=== PATIENT | female | born 1975 | race African-American/Black ===

== ENCOUNTER 2020-02-21 08:15 | Outpatient (REF) | payer MEDICARE, MEDICAID, SELFPAY ==
[2020-02-21 13:22] LABS: CT PCR NOT DETECTED (Not Detect.); NG PCR NOT DETECTED (Not Detect.)
[2020-02-22 08:46] LABS: BV Int Neg Control Negative (Negative); BV Int Pos Control Positive (Positive)
== END 2020-02-21 08:16 | disposition home or self-care (01) ==
LOC: HO.LAB 08:15
PROVIDERS: Visit Provider Obstetrics & Gynecology
DX: Z01.419 Encounter for gynecological examination (general) (routine) without abnormal findings (principal); F17.210 Nicotine dependence, cigarettes, uncomplicated; Z11.3 Encounter for screening for infections with a predominantly sexual mode of transmission
CPT/HCPCS: 87480; 87491; 87510; 87591; 87660

== ENCOUNTER → 2020-02-22 14:01 | Outpatient (BNVA) | payer MEDICARE, MEDICAID, SELFPAY | PROVIDERS: Visit Provider Family Medicine Adult Medicine | DX: M54.16 Radiculopathy, lumbar region (principal); M45.6 Ankylosing spondylitis lumbar region; Z79.891 Long term (current) use of opiate analgesic | CPT/HCPCS: 99212 ==

== ENCOUNTER 2020-03-03 16:37 | Emergency (ER) | payer MEDICARE, MEDICAID, SELFPAY ==
[2020-03-03 16:40] VITALS: BP 174/93; PULSE 88; RESP 18; TEMP 37.1; O2SAT 98; BMI 37.1
--- NOTE | 2020-03-03 19:36 | CT_ITS ---
EXAMINATION: CT SOFT TISSUE NECK WITHOUT CONTRAST CLINICAL INFORMATION: Lump right neck. COMPARISON: CT chest dated 09/25/2019 TECHNIQUE: Helical imaging was performed in the axial plane with generation of coronal and sagittal reformatted images. This CT examination was performed using dose optimization techniques as appropriate, variously including the following: *Automated exposure control *Adjustment of mA and/or kV according to patient size (this includes techniques or standardized protocols for targeted exams where dose is matched to indication/reason for exam; i.e. extremities or head) *Use of iterative reconstruction technique DLP: 919 mGy-cm FINDINGS: No cervical adenopathy is identified. Multiple mildly prominent lymph nodes present within the bilateral supraclavicular regions, bilateral axillary regions, and along the lateral chest wall on either side. These lymph nodes approach 1.0 cm short axis, not including the fatty hilum. The parotid glands are homogeneous in attenuation. The submandibular glands are normal. No contour abnormality or pathologic enhancement is seen within the oral cavity or pharyngeal mucosal space. The laryngeal structures are normal. The parapharyngeal fat is preserved. The carotid sheath vasculature opacify normally. No extra mucosal soft tissue mass or fluid collection is seen. No retropharyngeal fluid collection is seen. Right hemithyroidectomy. There is small amount of residual thyroid tissue just right of the trachea. The remaining left thyroid gland is heterogeneous. The superior mediastinum is unremarkable. The lung apices are clear. The mastoid air cells and visualized portions of the paranasal sinuses are well-aerated. The temporomandibular joints are normal. No periapical disease is identified. No osseous abnormalities are seen. The imaged portions of the brain parenchyma are unremarkable. CT/CT soft tissue neck wo con IMPRESSION: * No right-sided neck mass is identified. * Mildly prominent bilateral supraclavicular, axillary and lateral chest wall lymph nodes when compared to the prior exam. This is nonspecific. * Right hemithyroidectomy. Small amount of residual right thyroid tissue just right of the trachea anteriorly. Remaining thyroid tissue appears heterogeneous. Consider nonemergent ultrasound for further evaluation. This critical result was discussed with Abbi Serrano M.D. at 8:40 PM on 03/03/2020 and it was ascertained that the content and urgency of the report was understood at the time of direct communication.
[2020-03-03 20:00] VITALS: BP 147/68; PULSE 93; RESP 18; TEMP 37.1; O2SAT 95
[2020-03-03] MEDS: predniSONE 20 MG TABLET 60 MG PO (20:26)
[2020-03-03] MEDS: diphenhydrAMINE HCL 25 MG TABLET 50 MG PO (20:26)
[2020-03-03 22:00] VITALS: BP 153/72; PULSE 88; RESP 20; TEMP 36.9; O2SAT 96
--- NOTE | 2020-03-03 22:05 | ED.GENADULT ---
HPI - General Adult General Chief complaint: General Medical Stated complaint: allergic reaction Time Seen by Provider: 03/03/20 19:18 Source: patient Mode of arrival: ambulatory Limitations: no limitations History of Present Illness HPI narrative: patient comes to emergency room complaining of an area of neck swelling on the right side of her neck. Patient states she is not sure if she has an allergic reaction, started Flagyl yesterday. Patient states she is not short of breath, no rash, patient unsure if she has an allergic reaction. Patient states she is not sure if she has noticed this neck mass in the past. MD complaint: Mass in neck Related Data Home Medications Medication Instructions Recorded Confirmed apixaban 5 mg tablet 5 mg PO BID 02/21/20 cholecalciferol (vitamin D3) 1,250 1,250 mcg PO QWEEK 02/21/20 mcg (50,000 unit) capsule docusate sodium 100 mg capsule 100 mg PO DAILY 02/21/20 fluticasone furoate 100 1 inh INHALATION DAILY 02/21/20 mcg-vilanterol 25 mcg/dose inhalation powder lactulose 20 gram oral packet 20 g PO BID 02/21/20 pantoprazole 40 mg tablet,delayed 40 mg PO DAILY 02/21/20 release sucroferric oxyhydroxide 500 mg 500 mg PO BID 02/21/20 chewable tablet vitamin B complex and vitamin C 1 cap PO DAILY 02/21/20 no.20-folic acid 1 mg capsule Previous Rx's Medication Instructions Recorded oxycodone 10 mg tablet 10 mg PO BID PRN 30 Days #60 tab 02/22/20 oxycodone 10 mg tablet 10 mg PO BID PRN 30 Days #60 tab 02/22/20 Allergies Allergy/AdvReac Type Severity Reaction Status Date / Time Cefazolin Sodium Allergy Unknown unknown Verified 02/22/20 14:12 codeine Allergy Unknown unknown Verified 02/22/20 14:12 hydrocodone [From VICODIN] Allergy Unknown UNKNOWN Verified 02/22/20 14:12 Hydrocodone Bitartrate Allergy Unknown unknown Verified 02/22/20 14:12 lisinopril [LISINOPRIL] Allergy Unknown EYES SWELL Verified 02/22/20 14:12 SHUT, angioedema, angioedema Motrin Allergy Unknown unknown Verified 02/22/20 14:12 piperacillin [Zosyn] Allergy Unknown rash Verified 02/22/20 14:12 shellfish Allergy Unknown unknown Verified 02/22/20 14:12 Sulfa (Sulfonamide Allergy Unknown UNKNOWN Verified 02/22/20 14:12 Antibiotics) [SULFA (SULFONAMIDE ANTIBIOTICS)] tramadol [TRAMADOL] Allergy Unknown HIVES Verified 02/22/20 14:12 vancomycin Allergy Unknown rash Verified 02/22/20 14:12 azithromycin AdvReac Unknown dizziness/A Verified 02/22/20 14:12 KI SHELLFISH Allergy Unknown DIFFICULTY Uncoded 01/04/20 18:03 BREATHING Z-pack Allergy Unknown diziness/ Uncoded 10/05/19 00:00 AVERY Review of Systems Review of Systems: Constitutional : No Weight loss, No Fever, No Chills, No Night Sweats, No Fatigue, No Malaise ENT/Mouth : No Hearing loss, No Ear Pain, no nasal congestion, complaining of mass on the neck on the right side Hoarseness, No sore throat, No Rhinorrhea, No Swallowing Difficulty Eyes: No Eye Pain, No Swelling, No Redness, No Foreign Body, No Discharge, No Vision Changes Cardiovascular : No Chest Pain, No SOB, No Dyspnea on Exertion, No Orthopnea, No Edema, No Palpitations Respiratory : No Cough, No Sputum, No Wheezing, No Smoke Exposure, No Dyspnea Gastrointestinal : No Nausea, No Vomiting, No Diarrhea, No Constipation, No abdominal Pain, No Hematochezia, No Melena Genitourinary : no irregular bleeding, No Dysuria, No Urinary Frequency, No Hematuria, No Urinary Incontinence, No Urgency, No Flank Pain, No Urinary Flow Changes, No Hesitancy Musculoskeletal : No joint pain, No Myalgias, No Joint Swelling Skin : No Skin Lesions, No rash Neuro : No Weakness, No Numbness, No Paresthesias, No Loss of Consciousness, No Dizziness, No Headache Psych : No Anxiety/Panic, No Depression, No SI/HI/AH/VH, No Social Issues, Heme/Lymph: No Bruising, No Bleeding,No Lymphadenopathy Endocrine : No Polyuria, No Polydipsia, No Temperature Intolerance [facility] Past Medical History Medical History (Updated 03/03/20 @ 22:10 by Abbi Serrano MD) Ankylosing spondylitis of lumbar region Chronic kidney disease Right lumbar radiculopathy Surgical History (Updated 02/22/20 @ 14:42 by Eugene Tinoco DO) Hx of bilateral breast reduction surgery Status post dialysis Social History Social History (Updated 02/21/20 @ 08:35 by Marianna Marie MA) Alcohol intake: never Smoking Status: Light tobacco smoker Tobacco Type: Cigarette Cigarettes Per Day: 1 Years Smoked: 15 Advance Directives: No Advance Directives Information Provided: No Physical Exam Vital Signs: Vital Signs: Last Vital Signs Temp 98.8 F 03/03/20 16:40 Pulse 88 03/03/20 16:40 Resp 18 03/03/20 16:40 BP 174/93 H 03/03/20 16:40 Pulse Ox 98 03/03/20 16:40 Body Mass Index 37.1 Appearance: Alert. Oriented X3. No acute distress. Eyes: Pupils equal, round and reactive to light. ENT: Pharynx normal. Neck: Normal inspection. Neck supple. palpable tone have right 1/2 cm movable superficial tissue on the right side of the neck CVS: Normal heart rate and rhythm. Pulses normal. Normal S1 and S2 Respiratory: No respiratory distress. Breath sounds normal. No Wheezing. No rales Abdomen: Soft and nontender. No rigidity. No distention. good BS x4 Skin: Skin warm and dry. Normal skin color. Normal skin turgor. Extremities: No lower extremity edema. No lower extremity edema. No Lacerations. No Rash Neuro: Oriented X 3. No motor deficit. No sensory deficit. Moving all extermities. No slurred speech. Course Course Course Narrative: I discussed the CT scan with the patient, she was given medications for allergic reaction, I discussed with the patient that she does not have any neck mass. Discussed that it was visualized on the CT scan that she had a right sided jenny thyroidectomy, patient states that she does not recall having such procedure. patient's palpable mass likely lymphadenopathy. Patient was instructed to follow-up with her primary care physician Discharge Plan Discharge Clinical Impression: Cervical lymphadenopathy Patient Disposition: Home, Self-Care Instructions: Lymphadenopathy (ED) Additional Instructions: Please follow-up with your primary care physician tomorrow. If you have any worsening or new symptoms, please return to the emergency room or call 911 Prescriptions: No Action oxycodone 10 mg tablet 10 mg PO BID PRN (Reason: pain) 30 Days Qty: 60 RF: 0 oxycodone 10 mg tablet 10 mg PO BID PRN (Reason: pain) 30 Days Qty: 60 RF: 0 Breo Ellipta 100-25 mcg/dose blister with device 1 inh inhalation DAILY RF: 0 docusate sodium 100 mg capsule 100 mg PO DAILY RF: 0 Eliquis 5 mg tablet 5 mg PO BID RF: 0 cholecalciferol (vitamin D3) 1,250 mcg (50,000 unit) capsule 1,250 mcg PO QWEEK RF: 0 lactulose 20 gram packet 20 g PO BID RF: 0 pantoprazole [Protonix] 40 mg tablet,delayed release (DR/EC) 40 mg PO DAILY RF: 0 Renal Caps 1 mg capsule 1 cap PO DAILY RF: 0 Velphoro 500 mg tablet,chewable 500 mg PO BID RF: 0
== END 2020-03-03 23:38 | disposition home or self-care (01) ==
PROVIDERS: Emergency Provider Emergency Medicine; PCP Physician Assistant
DX: R59.0 Localized enlarged lymph nodes (principal); M54.2 Cervicalgia; Z79.899 Other long term (current) drug therapy
CPT/HCPCS: 70490; 99284; Q0163

== ENCOUNTER → 2020-04-16 15:16 | Outpatient (BNVA) | payer MEDICARE, MEDICAID, SELFPAY | PROVIDERS: PCP Physician Assistant; Visit Provider Family Medicine Adult Medicine | DX: M45.6 Ankylosing spondylitis lumbar region (principal); M54.16 Radiculopathy, lumbar region; Z79.891 Long term (current) use of opiate analgesic | CPT/HCPCS: 99212 ==

== ENCOUNTER → 2020-04-26 15:34 | Outpatient (BNVA) | payer MEDICARE, MEDICAID, SELFPAY | PROVIDERS: PCP Physician Assistant; Visit Provider Obstetrics & Gynecology | DX: N93.9 Abnormal uterine and vaginal bleeding, unspecified (principal) | CPT/HCPCS: 99212 ==

== ENCOUNTER 2020-05-15 08:16 | Outpatient (REF) | payer MEDICARE, MEDICAID, SELFPAY ==
--- NOTE | 2020-05-15 08:20 | MM_ITS ---
EXAMINATION: MM SCREENING DIGITAL BREAST TOMOSYNTHESIS, BILATERAL CLINICAL INFORMATION: Screening. Asymptomatic. Remote reduction mammoplasty 1999. Age 44. The lifetime risk of breast cancer based on the Tyrer-Cuzick Model is 11%. COMPARISON: Mammography: 05/10/2019, 08/05/2018, 05/04/2018, 04/09/2017, targeted left breast ultrasound 08/05/2018, 11/07/2018. TECHNIQUE: Digital breast tomosynthesis is performed in both the craniocaudal and mediolateral oblique views along with computer-aided detection (CAD). Synthesized 2D images are generated from the tomosynthesis. FINDINGS: There are scattered areas of fibroglandular density (ACR BI-RADS breast composition Category b). There is chronic bilateral scarring and scattered benign round and rim and coarse calcifications consistent with the prior reduction mammoplasty. The left breast shows no interval mass or architectural abnormality. The right breast has macrolobulated circumscribed mass near the scar at 6:00 position measuring 3.3 x 1.9 x 1.7 cm. This represents change from prior study, possibly a cyst. Patient will be recalled for additional imaging. MM/MM tomosynthesis screening BI IMPRESSION: 1. Right: Macrolobulated circumscribed rounded mass near scar at 6:00 position measuring 3.3 x 1.9 x 1.7 cm, possibly a cyst. 2. Left: No significant changes prior studies. 3. Bilateral post surgical changes consistent with prior reduction mammoplasty. ASSESSMENT: BI-RADS 0: Incomplete - Need Additional Imaging Evaluation RECOMMENDATION: 1. Targeted ultrasound right breast. 2. Radiology department staff will contact the patient for additional imaging. This patient's information was entered into a reminder system with a target due date for their next mammogram.
== END 2020-05-15 08:17 | disposition home or self-care (01) ==
LOC: HO.MAMMO 08:16
PROVIDERS: PCP Physician Assistant; Visit Provider Physician Assistant
DX: Z12.31 Encounter for screening mammogram for malignant neoplasm of breast (principal)
CPT/HCPCS: 77063; 77067

== ENCOUNTER 2020-05-20 13:10 | Outpatient (REF) | payer MEDICARE, MEDICAID, SELFPAY ==
--- NOTE | 2020-05-20 | US_ITS ---
EXAMINATION: US DIAGNOSTIC ULTRASOUND BREAST, RIGHT CLINICAL INFORMATION: Right breast mass on mammography. COMPARISON: Mammography of 05/15/2020 as well as studies dating back to 04/09/2017. TECHNIQUE: Ultrasound of the breast is performed with real-time elliott scale imaging and color Doppler. FINDINGS: At approximately 6 o'clock position 5 cm from the nipple there is a well-circumscribed hypoechoic lesion with mild distal sound enhancement. No distal sound shadowing. There is some internal vascularity. The lesion measures approximately 2.0 x 2.0 x 0.9 cm in size. The lesion is wider than it is tall. Ultrasound-guided core biopsy is recommended. Results are discussed with the patient at time of visit. Above recommendation will be called by mammography hand stapler to referring provider's office. US/US breast RT limited IMPRESSION: Solid right breast lesion 6 o'clock position for which ultrasound-guided core biopsy is recommended. ASSESSMENT: BI-RADS 4A: Low suspicion for malignancy. RECOMMENDATION: Ultrasound-guided core biopsy. This patient's information was entered into a reminder system with a target due date for their next mammogram.
== END 2020-05-20 13:11 | disposition home or self-care (01) ==
LOC: HO.MAMMO 13:10
PROVIDERS: PCP Physician Assistant; Visit Provider Physician Assistant
DX: R92.8 Other abnormal and inconclusive findings on diagnostic imaging of breast (principal)
CPT/HCPCS: 76642

== ENCOUNTER → 2020-06-06 14:16 | Outpatient (BNVA) | payer MEDICARE, MEDICAID, SELFPAY | PROVIDERS: PCP Physician Assistant; Visit Provider Family Medicine Adult Medicine | DX: M45.6 Ankylosing spondylitis lumbar region (principal); M54.16 Radiculopathy, lumbar region | CPT/HCPCS: 99212 ==

== ENCOUNTER 2020-06-20 14:53 | Outpatient (REF) | payer MEDICARE, MEDICAID, SELFPAY ==
--- NOTE | ~2020-06-20 | US_ITS ---
EXAMINATION: US DIAGNOSTIC ULTRASOUND BREAST, RIGHT CLINICAL INFORMATION: Right breast lump. COMPARISON: May 20, 2020 ultrasound and mammography dating back to April 09, 2017. TECHNIQUE: Ultrasound of the breast is performed with real-time elliott scale imaging and color Doppler. FINDINGS: At the 4:00 position of the right breast 10 cm from nipple there is a subcutaneous hypoechoic region consistent with epidermal inclusion cyst/sebaceous cyst. At the 6:00 position of the right breast in region of palpable abnormality there is again noted to be a circumscribed hypoechoic lesion measuring approximately 1.6 x 1.0 x 2.5 cm in size. There is internal vascularity present. There is some distal sound shadowing seen. Ultrasound-guided core biopsy is again recommended as had been on study of May 20, 2020 at which time patient refused to have biopsy done. Results are discussed with the patient at time of visit. US/US breast RT limited IMPRESSION: Bilateral subcutaneous skin lesions as described. Again noted to be solid breast lesion 6:00 position for which ultrasound-guided core biopsy is recommended. ASSESSMENT: Right breast BI-RADS 4A: Low suspicion for malignancy RECOMMENDATION: Tissue sampling of right breast lesion 6:00 position. This patient's information was entered into a reminder system with a target due date for their next mammogram.
--- NOTE | ~2020-06-20 | US_ITS ---
EXAMINATION: US DIAGNOSTIC ULTRASOUND BREAST, LEFT CLINICAL INFORMATION: Left breast lump. COMPARISON: Mammography of May 15, 2020 and studies dating back to April 09, 2017. TECHNIQUE: Ultrasound of the breast is performed with real-time elliott scale imaging and color Doppler. FINDINGS: There is no focal suspicious finding. At approximately the 6:00 position 8 cm from the nipple there is a 5 x 2 mm hypoechoic lesion which is wider than it is tall without vascularity lying within the subcutaneous tissue and likely representing a sebaceous cyst/epidermal inclusion cyst. No definite pore to the skin is appreciated. Results are discussed with the patient at time of visit. US/US breast LT limited IMPRESSION: Palpable abnormality of the left breast corresponds to a skin lesion as described. ASSESSMENT: Left breast BI-RADS 2: Benign RECOMMENDATION: Left breast clinical management One year screening mammogram left breast. This patient's information was entered into a reminder system with a target due date for their next mammogram.
== END 2020-06-20 14:54 | disposition home or self-care (01) ==
LOC: HO.MAMMO 14:53
PROVIDERS: Visit Provider Physician Assistant
DX: N63.15 Unspecified lump in the right breast, overlapping quadrants (principal); N63.25 Unspecified lump in the left breast, overlapping quadrants
CPT/HCPCS: 76642

== ENCOUNTER → 2020-07-10 09:03 | Outpatient (BNVA) | payer MEDICARE, MEDICAID, SELFPAY | PROVIDERS: PCP Physician Assistant; Visit Provider Surgery ==

== ENCOUNTER → 2020-07-11 13:59 | Outpatient (BNVA) | payer MEDICARE, MEDICAID, SELFPAY | PROVIDERS: PCP Physician Assistant; Visit Provider Family Medicine Adult Medicine | DX: M45.6 Ankylosing spondylitis lumbar region (principal); M54.16 Radiculopathy, lumbar region; Z79.899 Other long term (current) drug therapy | CPT/HCPCS: 99212 ==

== ENCOUNTER 2020-07-31 10:32 | Outpatient (REF) | payer MEDICARE, MEDICAID, SELFPAY ==
--- NOTE | ~2020-07-31 | MM_ITS ---
EXAMINATION: ULTRASOUND GUIDED CORE BIOPSY BREAST, RIGHT POST PROCEDURE DIGITAL MAMMOGRAM, RIGHT CLINICAL INFORMATION: Oval circumscribed mass superficial inferior right breast near reduction mammoplasty scar measuring approximately 2.5 cm in greatest dimension. COMPARISON: Mammography 05/15/2020, ultrasound right breast 05/20/2020, 06/20/2020. FINDINGS: Proper informed consent is obtained from the patient after discussion of the procedure, potential risks and complications, and alternatives. Patient was given an opportunity for questions. The patient appeared to understand. The patient consented to the procedure and signed the consent form. GUIDANCE: Ultrasound-guided; aseptic technique. LESION: Oval macrolobulated hypoechoic mass superficial inferior right breast. APPROACH: Oblique lateral medial. ANESTHESIA: 10 mL 1% lidocaine. DERMATOTOMY: Single skin rosaline dermatotomy performed. NEEDLE: 14-gauge Achieve core biopsy device with 13.5-gauge co-axial guide needle. CORES: 5. CLIP: HydroMARK; shape: open coil. POST PROCEDURE UNILATERAL DIGITAL MAMMOGRAM: The post biopsy mammogram is performed in separate room using separate digital mammography equipment from the biopsy procedure. CC and ML views are obtained. There are scattered areas of fibroglandular density (breast composition category: b). The clip marker is in position, residing inferior medial aspect of the lesion. No gross hematoma. The patient tolerated the procedure well. No immediate complications. Home instructions reviewed with the patient. Final pathology results are pending. MM/MM diagnostic mammo unilat RT IMPRESSION: 1. Status post ultrasound-guided core biopsy right breast. 2. Clip placed: HydroMARK; shape: open coil. 3. Pathology pending. An addendum report will be issued.
== END 2020-07-31 10:33 | disposition home or self-care (01) ==
LOC: HO.MAMMO 10:32
PROVIDERS: Visit Provider Surgery
DX: N63.15 Unspecified lump in the right breast, overlapping quadrants (principal)
CPT/HCPCS: 19083; 77065; 88305

== ENCOUNTER 2020-09-03 13:55 | Outpatient (REF) | payer MEDICARE, MEDICAID, SELFPAY ==
[2020-09-04 08:20] LABS: HBc Num1 0.07 S/CO (0.00-0.79); HIV AB/AG Nonreactive (Nonreactive); HIV Num 1 0.06 S/CO (0.00-0.99); Hepatitis B Core Antibody Nonreactive (Nonreactive)
[2020-09-04 08:46] LABS: ~HepC Num1 0.14 S/CO (0.00-0.79); ~Hepatitis C Antibody Nonreactive (Nonreactive)
[2020-09-04 08:58] LABS: Syphilis Screen Nonreactive (Nonreactive)
[2020-09-04 09:58] LABS: CT PCR NOT DETECTED (Not Detect.); NG PCR NOT DETECTED (Not Detect.)
[2020-09-04 11:25] LABS: BV Int Neg Control Negative (Negative); BV Int Pos Control Positive (Positive)
== END 2020-09-03 13:56 | disposition home or self-care (01) ==
LOC: HO.LAB 13:55
PROVIDERS: PCP Physician Assistant; Visit Provider Advanced Practice Midwife
DX: Z01.84 Encounter for antibody response examination (principal); Z11.4 Encounter for screening for human immunodeficiency virus [HIV]; Z11.3 Encounter for screening for infections with a predominantly sexual mode of transmission; N89.8 Other specified noninflammatory disorders of vagina; Z20.2 Contact with and (suspected) exposure to infections with a predominantly sexual mode of transmission
CPT/HCPCS: 36415; 86704; 86780; 86803; 87389; 87480; 87491; 87510; 87591; 87660; 99212

== ENCOUNTER 2020-11-30 20:12 | Emergency (ER) | payer MEDICARE, MEDICAID, SELFPAY ==
[2020-11-30 20:30] VITALS: BP 147/84; PULSE 79; RESP 16; TEMP 36.8; O2SAT 100; BMI 40.3
--- NOTE | 2020-11-30 21:54 | PC.NURSE ---
pt refused to wait for d/c paperwork. 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
--- NOTE | 2020-12-01 02:28 | ED_ITS ---
HPI - Wound/Laceration General Chief Complaint: Wound/Laceration Stated Complaint: Wound vac leakage Source: patient Mode of arrival: ambulatory Limitations: no limitations History of Present Illness HPI narrative: Here to have wound dressing change she has a wound VAC in the right lower quadrant from surgical wound that she has had after renal transplant otherwise she is doing well. She does have wound nurse come to the house however not able to today given the weekend. She has an appointment with her transplant team at [facility] on Wednesday. States she has her dressing with her just wants this changed and otherwise she is overall feeling ?great?. States she change the top dressing of the wound VAC and this may have caused a kink causing malfunction of the wound VAC to not drain properly and is beeping this is been going on for past 3 hours. Onset (ago): minute(s) Related Data Home Medications Medication Instructions Recorded Confirmed albuterol sulfate 90 mcg/actuation 2 puff INHALATION Q4-6H 11/30/20 11/30/20 aerosol inhaler (Ventolin HFA) amlodipine 10 mg tablet 1 tab PO DAILY 11/30/20 11/30/20 apixaban 5 mg tablet (Eliquis) 1 tab PO BID 11/30/20 11/30/20 calcitriol 0.5 mcg capsule 1 cap PO DAILY 11/30/20 11/30/20 docusate sodium 100 mg capsule 1 cap PO BID 11/30/20 11/30/20 fluconazole 200 mg tablet 1 tab PO DAILY 11/30/20 11/30/20 fluticasone furoate 100 1 puff INHALATION DAILY 11/30/20 11/30/20 mcg-vilanterol 25 mcg/dose inhalation powder (Breo Ellipta) furosemide 20 mg tablet 20 mg PO DAILY 11/30/20 11/30/20 gabapentin 300 mg capsule 1 cap PO TID 11/30/20 11/30/20 nystatin 100,000 unit/mL oral 5 ml PO QID 11/30/20 11/30/20 suspension pantoprazole 20 mg tablet,delayed 1 tab PO DAILY 11/30/20 11/30/20 release sodium zirconium cyclosilicate 5 1 packet PO DAILY 11/30/20 11/30/20 gram oral powder packet (Lokelma) sulfamethoxazole 400 1 tab PO DAILY 11/30/20 11/30/20 mg-trimethoprim 80 mg tablet valganciclovir 450 mg tablet 2 tab PO DAILY 11/30/20 11/30/20 Allergies Allergy/AdvReac Type Severity Reaction Status Date / Time Cefazolin Sodium Allergy Unknown unknown Verified 11/30/20 20:35 codeine Allergy Unknown unknown Verified 11/30/20 20:35 hydrocodone [From VICODIN] Allergy Unknown UNKNOWN Verified 11/30/20 20:35 lisinopril [LISINOPRIL] Allergy Unknown EYES SWELL Verified 11/30/20 20:35 SHUT, angioedema, angioedema Motrin Allergy Unknown unknown Verified 11/30/20 20:35 piperacillin [Zosyn] Allergy Unknown rash Verified 11/30/20 20:35 shellfish Allergy Unknown unknown Verified 11/30/20 20:35 Sulfa (Sulfonamide Allergy Unknown UNKNOWN Verified 11/30/20 20:35 Antibiotics) [SULFA (SULFONAMIDE ANTIBIOTICS)] tramadol [TRAMADOL] Allergy Unknown HIVES Verified 11/30/20 20:35 vancomycin Allergy Unknown rash Verified 11/30/20 20:35 azithromycin AdvReac Unknown dizziness/A Verified 11/30/20 20:35 Review of Systems Review of Systems: Yes all other systems are reviewed and are negative [facility] Past Medical History Medical History Ankylosing spondylitis of lumbar region Chronic kidney disease Right lumbar radiculopathy Surgical History (Updated 11/30/20 @ 20:34 by Faith Jacobs RN) Hx of bilateral breast reduction surgery S/P kidney transplant Status post dialysis Social History Social History Alcohol intake: never Cigarettes Per Day: 1 Years Smoked: 15 Advance Directives: No Advance Directives Information Provided: Yes Gender identity: female Physical Exam Vital Signs: Vital Signs: Last Vital Signs Temp 98.2 F 11/30/20 20:30 Pulse 79 11/30/20 20:30 Resp 16 11/30/20 20:30 BP 147/84 H 11/30/20 20:30 Pulse Ox 100 11/30/20 20:30 Body Mass Index 40.3 Const: General: cooperative and healthy appearing; No acute distress or in toxicated appearing Nutritional Appearance: average body habitus Orientation/consciousness: patient oriented x3 HENMT: Head: Yes normal to inspection Ears: hearing grossly normal bilaterally Eyes: General: appearance normal, both eyes and all related structures Visual Farr: normal visual farr by confrontation Neck: Neck: Yes normal visual inspection, No positive Brudzinski's sign, No positive Kernig's sign and No tender Thyroid: Thyroid normal Chest: Chest palpation & inspection: normal inspection of the chest Resp: Effort & Inspection: normal respiratory effort Cardio: Jugular venous distension: no JVD GI: Inspection: Yes normal to inspection Percussion: Yes normal to percussion Auscultation: normal bowel sounds : General: Yes no CVA tenderness Back/Spine/Pelvis: Back: no CVA tenderness Skin: General skin exam: no rashes or lesions noted Full body images: 1. Wound VAC with Tegaderm dressing appears to have 1 corner this flaked off causing disruption in the air seal and alert in the wound VAC. Neuro: General: patient oriented x3 Extrem: General: Yes normal to inspection Course Course Course Narrative: Does not want me to call [facility] or consult her transplant team has extra wound VAC dressing her VNA comes and changes it is regularly just wants this change to close the seal. Wound VAC dressing changed using sterile technique flow signs or symptoms of infection. Wound was repacked with the specialized wound still packing and functioning well. Has an appointment tomorrow with her wound/transplant team at [facility]. Discharge Plan Discharge Clinical Impression: Encounter for management of vacuum-assisted closure (VAC) of wound Patient Disposition: Elopement Additional Instructions: Patient left prior to getting her discharge Prescriptions: No Action valganciclovir 450 mg tablet 2 tab PO DAILY RF: 0 nystatin 100,000 unit/mL suspension 5 ml PO QID RF: 0 sulfamethoxazole-trimethoprim 400-80 mg tablet 1 tab PO DAILY RF: 0 fluconazole 200 mg tablet 1 tab PO DAILY RF: 0 pantoprazole 20 mg tablet,delayed release (DR/EC) 1 tab PO DAILY RF: 0 amlodipine 10 mg tablet 1 tab PO DAILY RF: 0 calcitriol 0.5 mcg capsule 1 cap PO DAILY RF: 0 docusate sodium 100 mg capsule 1 cap PO BID RF: 0 gabapentin 300 mg capsule 1 cap PO TID RF: 0 furosemide 20 mg tablet 20 mg PO DAILY RF: 0 albuterol sulfate [Ventolin HFA] 90 mcg/actuation HFA aerosol inhaler 2 puff inhalation Q4-6H RF: 0 Eliquis 5 mg tablet 1 tab PO BID RF: 0 Breo Ellipta 100-25 mcg/dose blister with device 1 puff inhalation DAILY RF: 0 Lokelma 5 gram powder in packet 1 packet PO DAILY RF: 0 Interventions: ED Discharge Assessment Last Done: 11/30/20 21:55 Discharge Date/Time: 11/30/20 21:56
== END 2020-11-30 21:56 | disposition left against medical advice (07) ==
PROVIDERS: Emergency Provider Student in an Organized Health Care Education/Training Program; PCP Physician Assistant
DX: Z48.01 Encounter for change or removal of surgical wound dressing (principal); Z94.0 Kidney transplant status
CPT/HCPCS: 99283

== ENCOUNTER 2020-12-01 04:45 | Emergency (ER) | payer MEDICARE, MEDICAID, SELFPAY ==
[2020-12-01 04:59] VITALS: BP 115/53; PULSE 79; RESP 16; TEMP 36.8; O2SAT 100; BMI 40.3
--- NOTE | 2020-12-01 05:48 | ED_ITS ---
HPI - Wound/Laceration General Chief Complaint: Wound/Laceration Stated Complaint: wound check Time Seen by Provider: 12/01/20 05:48 Source: patient Mode of arrival: ambulatory History of Present Illness HPI narrative: 45-year-old female status post renal transplant with of wound VAC in place now presenting with wound VAC malfunction. Patient otherwise denies any fever, chills, difficulties with the wound. Related Data Home Medications Medication Instructions Recorded Confirmed albuterol sulfate 90 mcg/actuation 2 puff INHALATION Q4-6H 11/30/20 11/30/20 aerosol inhaler (Ventolin HFA) amlodipine 10 mg tablet 1 tab PO DAILY 11/30/20 11/30/20 apixaban 5 mg tablet (Eliquis) 1 tab PO BID 11/30/20 11/30/20 calcitriol 0.5 mcg capsule 1 cap PO DAILY 11/30/20 11/30/20 docusate sodium 100 mg capsule 1 cap PO BID 11/30/20 11/30/20 fluconazole 200 mg tablet 1 tab PO DAILY 11/30/20 11/30/20 fluticasone furoate 100 1 puff INHALATION DAILY 11/30/20 11/30/20 mcg-vilanterol 25 mcg/dose inhalation powder (Breo Ellipta) furosemide 20 mg tablet 20 mg PO DAILY 11/30/20 11/30/20 gabapentin 300 mg capsule 1 cap PO TID 11/30/20 11/30/20 nystatin 100,000 unit/mL oral 5 ml PO QID 11/30/20 11/30/20 suspension pantoprazole 20 mg tablet,delayed 1 tab PO DAILY 11/30/20 11/30/20 release sodium zirconium cyclosilicate 5 1 packet PO DAILY 11/30/20 11/30/20 gram oral powder packet (Lokelma) sulfamethoxazole 400 1 tab PO DAILY 11/30/20 11/30/20 mg-trimethoprim 80 mg tablet valganciclovir 450 mg tablet 2 tab PO DAILY 11/30/20 11/30/20 Allergies Allergy/AdvReac Type Severity Reaction Status Date / Time Cefazolin Sodium Allergy Unknown unknown Verified 11/30/20 20:35 codeine Allergy Unknown unknown Verified 11/30/20 20:35 hydrocodone [From VICODIN] Allergy Unknown UNKNOWN Verified 11/30/20 20:35 lisinopril [LISINOPRIL] Allergy Unknown EYES SWELL Verified 11/30/20 20:35 SHUT, angioedema, angioedema Motrin Allergy Unknown unknown Verified 11/30/20 20:35 piperacillin [Zosyn] Allergy Unknown rash Verified 11/30/20 20:35 shellfish Allergy Unknown unknown Verified 11/30/20 20:35 Sulfa (Sulfonamide Allergy Unknown UNKNOWN Verified 11/30/20 20:35 Antibiotics) [SULFA (SULFONAMIDE ANTIBIOTICS)] tramadol [TRAMADOL] Allergy Unknown HIVES Verified 11/30/20 20:35 vancomycin Allergy Unknown rash Verified 11/30/20 20:35 azithromycin AdvReac Unknown dizziness/A Verified 11/30/20 20:35 KI Review of Systems Review of Systems: Pertinent positives and negatives as stated in HPI 10 point review of systems is otherwise negative. [facility] Past Medical History Source: nursing notes reviewed Medical History Ankylosing spondylitis of lumbar region Chronic kidney disease Right lumbar radiculopathy Surgical History Hx of bilateral breast reduction surgery S/P kidney transplant Status post dialysis Social History Social History Alcohol intake: never Cigarettes Per Day: 1 Years Smoked: 15 Advance Directives: No Advance Directives Information Provided: No Patient : No Gender identity: female Physical Exam Vital Signs: Vital Signs: Last Vital Signs Temp 98.2 F 12/01/20 04:59 Pulse 79 12/01/20 04:59 Resp 16 12/01/20 04:59 BP 115/53 L 12/01/20 04:59 Pulse Ox 100 12/01/20 04:59 Body Mass Index 40.3 VITAL SIGNS: Reviewed. GENERAL: Well developed, well nourished, in no acute distress. HEAD: Normocephalic/atraumatic EYES: PERRLA, EOMI OROPHARYNX: no oral lesions noted, posterior pharynx clear LUNGS: Normal breath sounds. No adventitious sounds or accessory muscle use. SpO2<100> CARDIOVASCULAR: Regular rate and rhythm without noted murmurs ABDOMEN: Soft, non-tender, non-distended with bowel sounds, well-healing wound without a lot of discharge but wound VAC is alarming SKIN: Inspection of the skin reveals no rashes NEUROLOGIC: Alert and oriented x 4. Strength and sensation to light touch were grossly intact x 4. Course Course Course Narrative: Wound VAC taken down completely and reapplied with 3 pieces of sponge with good seal. Patient stable and discharged home Discharge Plan Discharge Clinical Impression: Encounter for management of wound VAC Patient Disposition: Home, Self-Care Instructions: Negative Pressure Wound Therapy (DC) Additional Instructions: Please follow-up with your primary care provider on Wednesday morning for re-evalu ation. Return to the ER for acute worsening of your symptoms. Prescriptions: No Action valganciclovir 450 mg tablet 2 tab PO DAILY RF: 0 nystatin 100,000 unit/mL suspension 5 ml PO QID RF: 0 sulfamethoxazole-trimethoprim 400-80 mg tablet 1 tab PO DAILY RF: 0 fluconazole 200 mg tablet 1 tab PO DAILY RF: 0 pantoprazole 20 mg tablet,delayed release (DR/EC) 1 tab PO DAILY RF: 0 amlodipine 10 mg tablet 1 tab PO DAILY RF: 0 calcitriol 0.5 mcg capsule 1 cap PO DAILY RF: 0 docusate sodium 100 mg capsule 1 cap PO BID RF: 0 gabapentin 300 mg capsule 1 cap PO TID RF: 0 furosemide 20 mg tablet 20 mg PO DAILY RF: 0 albuterol sulfate [Ventolin HFA] 90 mcg/actuation HFA aerosol inhaler 2 puff inhalation Q4-6H RF: 0 Eliquis 5 mg tablet 1 tab PO BID RF: 0 Breo Ellipta 100-25 mcg/dose blister with device 1 puff inhalation DAILY RF: 0 Lokelma 5 gram powder in packet 1 packet PO DAILY RF: 0 Referrals: Alexx Baum PA-C [Primary Care Provider] - 2 days
--- NOTE | 2020-12-01 05:49 | PC.NURSE ---
this nurse assisted Dr Benson in removing old wound vac seal and reapplying a new one. 3 pieces of individually cut foam placed inside wound, skin prep used to promote a good seal. transparent film dressing applied with good seal. pt turned on wound vac and it is now functioning properly. pt tolerated wound vac change well. plan for discharge.
== END 2020-12-01 05:58 | disposition home or self-care (01) ==
PROVIDERS: Emergency Provider Student in an Organized Health Care Education/Training Program; PCP Physician Assistant
DX: Z48.00 Encounter for change or removal of nonsurgical wound dressing (principal); F17.210 Nicotine dependence, cigarettes, uncomplicated; Z79.899 Other long term (current) drug therapy; Z71.6 Tobacco abuse counseling
CPT/HCPCS: 99283

== ENCOUNTER 2020-12-06 21:57 | Emergency (ER) | payer MEDICARE, MEDICAID, SELFPAY ==
[2020-12-06 22:28] VITALS: BP 148/87; PULSE 74; RESP 14; TEMP 36.1; O2SAT 100; BMI 37.1
--- NOTE | 2020-12-07 00:44 | PC.NURSE ---
New wound vac dressing applied. Wound bed pink, moist. No drainage, redness, or odor noted. Patient turned suction back on and positive effect noted.
--- NOTE | 2020-12-07 00:47 | ED_ITS ---
HPI - Wound/Laceration General Chief Complaint: Wound/Laceration Stated Complaint: Wound vac issues Time Seen by Provider: 12/07/20 00:47 Source: patient Mode of arrival: ambulatory Limitations: no limitations History of Present Illness HPI narrative: 45-year-old female status post renal transplant with right lower abdominal area with open surgical wound covered with wound VAC, patient noted that the wound VAC is malfunctioning, patient otherwise declined any fever, chills. Related Data Home Medications Medication Instructions Recorded Confirmed albuterol sulfate 90 mcg/actuation 2 puff INHALATION Q4-6H 11/30/20 11/30/20 aerosol inhaler (Ventolin HFA) amlodipine 10 mg tablet 1 tab PO DAILY 11/30/20 11/30/20 apixaban 5 mg tablet (Eliquis) 1 tab PO BID 11/30/20 11/30/20 calcitriol 0.5 mcg capsule 1 cap PO DAILY 11/30/20 11/30/20 docusate sodium 100 mg capsule 1 cap PO BID 11/30/20 11/30/20 fluconazole 200 mg tablet 1 tab PO DAILY 11/30/20 11/30/20 fluticasone furoate 100 1 puff INHALATION DAILY 11/30/20 11/30/20 mcg-vilanterol 25 mcg/dose inhalation powder (Breo Ellipta) furosemide 20 mg tablet 20 mg PO DAILY 11/30/20 11/30/20 gabapentin 300 mg capsule 1 cap PO TID 11/30/20 11/30/20 nystatin 100,000 unit/mL oral 5 ml PO QID 11/30/20 11/30/20 suspension pantoprazole 20 mg tablet,delayed 1 tab PO DAILY 11/30/20 11/30/20 release sodium zirconium cyclosilicate 5 1 packet PO DAILY 11/30/20 11/30/20 gram oral powder packet (Lokelma) sulfamethoxazole 400 1 tab PO DAILY 11/30/20 11/30/20 mg-trimethoprim 80 mg tablet valganciclovir 450 mg tablet 2 tab PO DAILY 11/30/20 11/30/20 Allergies Allergy/AdvReac Type Severity Reaction Status Date / Time Cefazolin Sodium Allergy Unknown unknown Verified 11/30/20 20:35 codeine Allergy Unknown unknown Verified 11/30/20 20:35 hydrocodone [From VICODIN] Allergy Unknown UNKNOWN Verified 11/30/20 20:35 lisinopril [LISINOPRIL] Allergy Unknown EYES SWELL Verified 11/30/20 20:35 SHUT, angioedema, angioedema Motrin Allergy Unknown unknown Verified 11/30/20 20:35 piperacillin [Zosyn] Allergy Unknown rash Verified 11/30/20 20:35 shellfish Allergy Unknown unknown Verified 11/30/20 20:35 Sulfa (Sulfonamide Allergy Unknown UNKNOWN Verified 11/30/20 20:35 Antibiotics) [SULFA (SULFONAMIDE ANTIBIOTICS)] tramadol [TRAMADOL] Allergy Unknown HIVES Verified 11/30/20 20:35 vancomycin Allergy Unknown rash Verified 11/30/20 20:35 azithromycin AdvReac Unknown dizziness/A Verified 11/30/20 20:35 KI Review of Systems Review of Systems: All other systems are reviewed and are negative Constitutional: Reports as per HPI and Reports no additional constitutional complaints Eyes: Reports as per HPI and Reports no additional eye complaints Reports system reviewed and no additional complaints, except as documented Cardiovascular: Reports as per HPI and Reports no additional cardiovascular complaints Respiratory: Reports as per HPI and Reports no additional respiratory complaints Gastrointestinal: Reports as per HPI and Reports no additional gastrointestinal complaints Genitourinary: Reports no additional female genitourinary complaints Musculoskeletal: Reports no additional musculoskeletal complaints Skin/Breast: Reports system reviewed and no additional complaints, except as docu Psychiatric: Reports no additional psychiatric complaints Endocrine: Reports no additional endocrine complaints Hematologic/Lymphatic: Reports no additional hematologic/lymphatic complaints Allergic/Immunologic: Reports no additional allergic/immunologic complaints Reports system reviewed and no additional complaints, except as documented and Reports Abnormal speech present [facility] Past Medical History Medical History Ankylosing spondylitis of lumbar region Chronic kidney disease Right lumbar radiculopathy Surgical History Hx of bilateral breast reduction surgery S/P kidney transplant Status post dialysis Social History Social History Alcohol intake: never Cigarettes Per Day: 1 Years Smoked: 15 Advance Directives: Yes Advance Directives on File: Yes Advance Directives Date on File: 02/26/20 Patient : No Gender identity: Female Physical Exam Vital Signs: Vital Signs: Last Vital Signs Temp 97.0 F 12/06/20 22:28 Pulse 74 12/06/20 22:28 Resp 14 12/06/20 22:28 BP 148/87 H 12/06/20 22:28 Pulse Ox 100 12/06/20 22:28 Body Mass Index 37.1 Vital signs have been reviewed as appeared to be correct. Blood pressure normal. Heart rate normal. Respiration rate normal. Temperature normal. Oxygen saturation normal. Appearance: Alert. Oriented X3. No acute distress. Head: Normal external exam. Normocephalic. Atraumatic. No Sams signs noted. No raccoon eyes noted Eyes: PERRLA. EOMI. Conjunctiva and sclera normal. Eyelids normal. ENT: TM's Normal. Pharynx normal. Uvula midline. Moist mucous membranes. No trismus noted. No drooling noted. No muffled voice noted. Neck: Normal inspection. Neck supple. FROM. No adenopathy. Thyroid Normal. No meningeal signs. No neck mass noted. CVS: Normal heart rate and rhythm. Heart sound normal. No murmurs noted. Pulses normal throughout. Respiratory: No respiratory distress. Painless inspiration. Breath sounds normal. No wheezes/rales/rhonchi noted. Chest nontender. No accessory muscle usage noted or decreased air movement noted. Abdomen: Soft , obese, 15 cm right lower quadrant open surgical incision appear intact, placing wound VAC in the wound (patient provided with wound VAC kits). Back: No CVA tenderness. Full range of motion noted. Skin: Skin warm and dry. Normal skin color. Normal skin turgor. No rashes/lesions/lacerations noted. Extremities: No lower extremity edema. Extremities exhibit normal range of motion. Extremities nontender. Neuro: Oriented X 3. Cranial nerve exam: II-XII are grossly intact No motor deficit. No sensory deficit. Reflexes normal. Course Course Course Narrative: Status post wound VAC placement in the right lower quadrant open wounds. Discharge Plan Discharge Clinical Impression: Encounter for management of wound VAC Patient Disposition: Home, Self-Care Instructions: Negative Pressure Wound Therapy (DC) Prescriptions: No Action valganciclovir 450 mg tablet 2 tab PO DAILY RF: 0 nystatin 100,000 unit/mL suspension 5 ml PO QID RF: 0 sulfamethoxazole-trimethoprim 400-80 mg tablet 1 tab PO DAILY RF: 0 fluconazole 200 mg tablet 1 tab PO DAILY RF: 0 pantoprazole 20 mg tablet,delayed release (DR/EC) 1 tab PO DAILY RF: 0 amlodipine 10 mg tablet 1 tab PO DAILY RF: 0 calcitriol 0.5 mcg capsule 1 cap PO DAILY RF: 0 docusate sodium 100 mg capsule 1 cap PO BID RF: 0 gabapentin 300 mg capsule 1 cap PO TID RF: 0 furosemide 20 mg tablet 20 mg PO DAILY RF: 0 albuterol sulfate [Ventolin HFA] 90 mcg/actuation HFA aerosol inhaler 2 puff inhalation Q4-6H RF: 0 Eliquis 5 mg tablet 1 tab PO BID RF: 0 Breo Ellipta 100-25 mcg/dose blister with device 1 puff inhalation DAILY RF: 0 Lokelma 5 gram powder in packet 1 packet PO DAILY RF: 0 Referrals: Alexx Baum PA-C [Primary Care Provider] - 2 days
== END 2020-12-07 00:59 | disposition home or self-care (01) ==
PROVIDERS: Emergency Provider Emergency Medicine; PCP Physician Assistant
DX: T85.698A Other mechanical complication of other specified internal prosthetic devices, implants and grafts, initial encounter (principal); Z94.0 Kidney transplant status
CPT/HCPCS: 99282; 99283

== ENCOUNTER 2020-12-20 22:55 | Emergency (ER) | payer MEDICARE, MEDICAID, SELFPAY ==
[2020-12-20 23:11] VITALS: BP 139/80; PULSE 70; RESP 16; TEMP 36.4; O2SAT 98; BMI 40.3
--- NOTE | 2020-12-21 00:42 | ED.GENADULT ---
HPI - General Adult General Chief complaint: General Medical Stated complaint: Wound vac leak Time Seen by Provider: 12/21/20 00:42 Source: patient Mode of arrival: ambulatory Limitations: no limitations History of Present Illness HPI narrative: Patient status post kidney transplant 09/06 with wound VAC dressing of which done by VNA is been leaking and does not have the dressing at home. Has been leaking for weeks and came here for dressing change. Otherwise she feels at baseline no fever no chills no nausea no vomiting Related Data Home Medications Medication Instructions Recorded Confirmed albuterol sulfate 90 mcg/actuation 2 puff INHALATION Q4-6H 11/30/20 11/30/20 aerosol inhaler (Ventolin HFA) amlodipine 10 mg tablet 1 tab PO DAILY 11/30/20 11/30/20 apixaban 5 mg tablet (Eliquis) 1 tab PO BID 11/30/20 11/30/20 calcitriol 0.5 mcg capsule 1 cap PO DAILY 11/30/20 11/30/20 docusate sodium 100 mg capsule 1 cap PO BID 11/30/20 11/30/20 fluconazole 200 mg tablet 1 tab PO DAILY 11/30/20 11/30/20 fluticasone furoate 100 1 puff INHALATION DAILY 11/30/20 11/30/20 mcg-vilanterol 25 mcg/dose inhalation powder (Breo Ellipta) furosemide 20 mg tablet 20 mg PO DAILY 11/30/20 11/30/20 gabapentin 300 mg capsule 1 cap PO TID 11/30/20 11/30/20 nystatin 100,000 unit/mL oral 5 ml PO QID 11/30/20 11/30/20 suspension pantoprazole 20 mg tablet,delayed 1 tab PO DAILY 11/30/20 11/30/20 release sodium zirconium cyclosilicate 5 1 packet PO DAILY 11/30/20 11/30/20 gram oral powder packet (Lokelma) sulfamethoxazole 400 1 tab PO DAILY 11/30/20 11/30/20 mg-trimethoprim 80 mg tablet valganciclovir 450 mg tablet 2 tab PO DAILY 11/30/20 11/30/20 ferrous sulfate 325 mg (65 mg 325 mg PO Q OTHER DAY tab 12/19/20 iron) tablet (Feosol) folic acid 1 mg tablet 1 mg PO DAILY 12/19/20 mycophenolate mofetil 250 mg 500 mg PO BID 12/19/20 capsule (CellCept) prednisone 5 mg tablet 5 mg PO DAILY 12/19/20 sennosides 8.6 mg tablet (senna) 8.6 mg PO BID 12/19/20 tacrolimus 1 mg capsule, 1 mg PO Q12H 12/19/20 immediate-release tacrolimus 5 mg capsule, 5 mg PO Q12H 12/19/20 immediate-release Previous Rx's Medication Instructions Recorded acetaminophen 650 mg 650 mg PO Q12H 30 Days #60 tab 12/19/20 tablet,extended release Allergies Allergy/AdvReac Type Severity Reaction Status Date / Time Cefazolin Sodium Allergy Unknown unknown Verified 12/20/20 23:10 codeine Allergy Unknown unknown Verified 12/20/20 23:10 hydrocodone [From VICODIN] Allergy Unknown UNKNOWN Verified 12/20/20 23:10 lisinopril [LISINOPRIL] Allergy Unknown EYES SWELL Verified 12/20/20 23:10 SHUT, angioedema, angioedema Motrin Allergy Unknown unknown Verified 12/20/20 23:10 piperacillin [Zosyn] Allergy Unknown rash Verified 12/20/20 23:10 shellfish Allergy Unknown unknown Verified 12/20/20 23:10 Sulfa (Sulfonamide Allergy Unknown UNKNOWN Verified 12/20/20 23:10 Antibiotics) [SULFA (SULFONAMIDE ANTIBIOTICS)] tramadol [TRAMADOL] Allergy Unknown HIVES Verified 12/20/20 23:10 vancomycin Allergy Unknown rash Verified 12/20/20 23:10 azithromycin AdvReac Unknown dizziness/A Verified 12/20/20 23:10 Review of Systems Review of Systems: Yes all other systems are reviewed and are negative [facility] Past Medical History Medical History Ankylosing spondylitis of lumbar region Chronic kidney disease Right lumbar radiculopathy Surgical History Hx of bilateral breast reduction surgery S/P kidney transplant Status post dialysis Family History Family History Mother No problems noted. Father No problems noted. Social History Social History Housing: Apartment Alcohol intake: never Patient Tobacco Use Status: Former Tobacco user (3 months ago) Cigarettes Per Day: 1 Years Smoked: 15 Advance Directives: Yes Advance Directives on File: Yes Advance Directives Date on File: 02/26/20 service: No Current occupational status: disabled Gender identity: Female Physical Exam Vital Signs: Vital Signs: Last Vital Signs Temp 97.8 F 12/21/20 00:45 Pulse 83 12/21/20 00:45 Resp 16 12/21/20 00:45 BP 114/46 L 12/21/20 00:45 Pulse Ox 97 12/21/20 00:45 Body Mass Index 40.3 Appearance: Alert. Oriented X3. No acute distress. Obese CVS: Normal heart rate and rhythm. Pulses normal. Respiratory: No respiratory distress. Equal air entry bilateral, no wheezing/rales/rhonchi Abdomen: Soft and nontender. Bowel sounds are present, no mass palpable, no CVA tenderness wound VAC in place in right lower abdomen with slight leakage under the dressing Skin: Skin warm and dry. Normal skin color. Normal skin turgor. Extremities: No lower extremity edema. No calf tenderness Neuro: Oriented X 3. No motor deficit. No sensory deficit.No cerebellar signs , cranial nerves II-XII intact Discharge Plan Discharge Clinical Impression: Encounter for wound care Patient Disposition: Home, Self-Care Instructions: Hemovac Drain Care (DC) Additional Instructions: Follow-up with your surgeon/[facility] for dressing Prescriptions: No Action valganciclovir 450 mg tablet 2 tab PO DAILY RF: 0 nystatin 100,000 unit/mL suspension 5 ml PO QID RF: 0 sulfamethoxazole-trimethoprim 400-80 mg tablet 1 tab PO DAILY RF: 0 fluconazole 200 mg tablet 1 tab PO DAILY RF: 0 pantoprazole 20 mg tablet,delayed release (DR/EC) 1 tab PO DAILY RF: 0 amlodipine 10 mg tablet 1 tab PO DAILY RF: 0 calcitriol 0.5 mcg capsule 1 cap PO DAILY RF: 0 docusate sodium 100 mg capsule 1 cap PO BID RF: 0 gabapentin 300 mg capsule 1 cap PO TID RF: 0 furosemide 20 mg tablet 20 mg PO DAILY RF: 0 albuterol sulfate [Ventolin HFA] 90 mcg/actuation HFA aerosol inhaler 2 puff inhalation Q4-6H RF: 0 Eliquis 5 mg tablet 1 tab PO BID RF: 0 Breo Ellipta 100-25 mcg/dose blister with device 1 puff inhalation DAILY RF: 0 Lokelma 5 gram powder in packet 1 packet PO DAILY RF: 0 acetaminophen 650 mg tablet extended release 650 mg PO Q12H 30 Days Qty: 60 RF: 0
[2020-12-21 00:45] VITALS: BP 114/46; PULSE 83; RESP 16; TEMP 36.6; O2SAT 97
--- NOTE | 2020-12-21 02:39 | PC.NURSE ---
pt wound vac changed over with Aleksandra fernandoldr rn. the dressing change was done with the pt instructions on what works well with her. additional supplies given to the pt if a leak in the system should occur. pt alert and oriented steady gait. [place] cream applied to the proximal end of the wound. pt hazel well no complications.
== END 2020-12-21 02:42 | disposition home or self-care (01) ==
PROVIDERS: Emergency Provider Internal Medicine; PCP Physician Assistant
DX: Z48.01 Encounter for change or removal of surgical wound dressing (principal); Z94.0 Kidney transplant status
CPT/HCPCS: 99283

== ENCOUNTER 2020-12-23 09:01 | Emergency (ER) | payer MEDICARE, MEDICAID, SELFPAY ==
[2020-12-23 09:12] VITALS: BP 137/69; PULSE 81; RESP 16; TEMP 36.9; O2SAT 100; BMI 40.3
--- NOTE | 2020-12-23 10:46 | ED.WOUNDLAC ---
HPI - Wound/Laceration General Chief Complaint: Wound/Laceration Stated Complaint: WOUND CHECK Time Seen by Provider: 12/23/20 09:44 Source: patient Mode of arrival: ambulatory History of Present Illness HPI narrative: 45-year-old female with a past medical history of lumbar radiculopathy, CKD s/p renal transplant 09/06, presenting to the ED for wound VAC dressing change. Patient was seen in our ED on 12/21 for similar instance, had dressing change at that time as well. Admits has follow-up with [facility]/her surgeon tomorrow, reports mild leaking from area x weeks. Denies fever, chills, abdominal pain, nausea/vomiting Onset (ago): day(s) Related Data Home Medications Medication Instructions Recorded Confirmed albuterol sulfate 90 mcg/actuation 2 puff INHALATION Q4-6H 11/30/20 11/30/20 aerosol inhaler (Ventolin HFA) amlodipine 10 mg tablet 1 tab PO DAILY 11/30/20 11/30/20 apixaban 5 mg tablet (Eliquis) 1 tab PO BID 11/30/20 11/30/20 calcitriol 0.5 mcg capsule 1 cap PO DAILY 11/30/20 11/30/20 docusate sodium 100 mg capsule 1 cap PO BID 11/30/20 11/30/20 fluconazole 200 mg tablet 1 tab PO DAILY 11/30/20 11/30/20 fluticasone furoate 100 1 puff INHALATION DAILY 11/30/20 11/30/20 mcg-vilanterol 25 mcg/dose inhalation powder (Breo Ellipta) furosemide 20 mg tablet 20 mg PO DAILY 11/30/20 11/30/20 gabapentin 300 mg capsule 1 cap PO TID 11/30/20 11/30/20 nystatin 100,000 unit/mL oral 5 ml PO QID 11/30/20 11/30/20 suspension pantoprazole 20 mg tablet,delayed 1 tab PO DAILY 11/30/20 11/30/20 release sodium zirconium cyclosilicate 5 1 packet PO DAILY 11/30/20 11/30/20 gram oral powder packet (Lokelma) sulfamethoxazole 400 1 tab PO DAILY 11/30/20 11/30/20 mg-trimethoprim 80 mg tablet valganciclovir 450 mg tablet 2 tab PO DAILY 11/30/20 11/30/20 ferrous sulfate 325 mg (65 mg 325 mg PO Q OTHER DAY tab 12/19/20 iron) tablet (Feosol) folic acid 1 mg tablet 1 mg PO DAILY 12/19/20 mycophenolate mofetil 250 mg 500 mg PO BID 12/19/20 capsule (CellCept) prednisone 5 mg tablet 5 mg PO DAILY 12/19/20 sennosides 8.6 mg tablet (senna) 8.6 mg PO BID 12/19/20 tacrolimus 1 mg capsule, 1 mg PO Q12H 12/19/20 immediate-release tacrolimus 5 mg capsule, 5 mg PO Q12H 12/19/20 immediate-release Previous Rx's Medication Instructions Recorded acetaminophen 650 mg 650 mg PO Q12H 30 Days #60 tab 12/19/20 tablet,extended release Allergies Allergy/AdvReac Type Severity Reaction Status Date / Time Cefazolin Sodium Allergy Unknown unknown Verified 12/20/20 23:10 codeine Allergy Unknown unknown Verified 12/20/20 23:10 hydrocodone [From VICODIN] Allergy Unknown UNKNOWN Verified 12/20/20 23:10 lisinopril [LISINOPRIL] Allergy Unknown EYES SWELL Verified 12/20/20 23:10 SHUT, angioedema, angioedema Motrin Allergy Unknown unknown Verified 12/20/20 23:10 piperacillin [Zosyn] Allergy Unknown rash Verified 12/20/20 23:10 shellfish Allergy Unknown unknown Verified 12/20/20 23:10 Sulfa (Sulfonamide Allergy Unknown UNKNOWN Verified 12/20/20 23:10 Antibiotics) [SULFA (SULFONAMIDE ANTIBIOTICS)] tramadol [TRAMADOL] Allergy Unknown HIVES Verified 12/20/20 23:10 vancomycin Allergy Unknown rash Verified 12/20/20 23:10 azithromycin AdvReac Unknown dizziness/A Verified 12/20/20 23:10 Review of Systems Review of Systems: Constitutional: No Fever, No Chills, No Fatigue, No Malaise ENT/Mouth: No Hearing loss, No sore throat Eyes: No Eye Pain, No Swelling Cardiovascular: No Chest Pain, No SOB Respiratory: No Cough Gastrointestinal: No Nausea, No Vomiting, No Diarrhea, No Constipation, No Abdominal pain Genitourinary: No Dysuria, No Urinary Frequency, No Hematuria Musculoskeletal: No joint pain, No Myalgias Skin: + Skin Lesions, No rash Neuro: No Weakness, No Dizziness, No Headache Yes all other systems are reviewed and are negative [facility] Past Medical History Medical History Ankylosing spondylitis of lumbar region Chronic kidney disease Right lumbar radiculopathy Surgical History Hx of bilateral breast reduction surgery S/P kidney transplant Status post dialysis Family History Family History Mother No problems noted. Father No problems noted. Social History Social History Housing: Apartment Alcohol intake: never Patient Tobacco Use Status: Former Tobacco user Cigarettes Per Day: 1 Years Smoked: 15 Use of substances other than those prescribed or required for medical reasons: No Advance Directives: No Advance Directives Information Provided: No Advance Directives Date on File: 02/26/20 Patient : No service: No Current occupational status: disabled Gender identity: Female Physical Exam Vital Signs: Vital Signs: Last Vital Signs Temp 98.5 F 12/23/20 09:12 Pulse 81 12/23/20 09:12 Resp 16 12/23/20 09:12 BP 137/69 12/23/20 09:12 Pulse Ox 100 12/23/20 09:12 Body Mass Index 40.3 Const: General: cooperative and healthy appearing Orientation/consciousness: patient oriented x3 Limitations: no limitations HENMT: Head: Yes normal to inspection Ears: hearing grossly normal bilaterally General nose exam: Normal external nose present Face and sinus: Yes normal facial exam Eyes: General: appearance normal, both eyes and all related structures EOM: EOMs intact bilaterally Neck: Neck: Yes normal visual inspection Resp: Effort & Inspection: normal respiratory effort and no respiratory distress Cardio: Rate: regular rate Heart sounds: S1 normal heart sound present GI: Other: Wound VAC in place to right lower quadrant with mild leakage beneath dressing. Abdomen is soft/nontender, no fluctuance/induration Inspection: Yes normal to inspection Palpation (GI): Soft to palpation, nontender, no guarding and not rigid Skin: Rashes: no rashes Wounds: no wounds Neuro: General: patient oriented x3 Gait exam (Neuro): Normal gait present Extrem: General: Yes normal to inspection Course Course Course Narrative: -dressing change in the ED. Patient has follow-up tomorrow with her surgeon MDM - Wound/Laceration MDM Narrative Medical decision making narrative: 45-year-old female with a past medical history of lumbar radiculopathy, CKD s/p renal transplant 09/06, presenting to the ED for wound VAC dressing change. On exam VSS, NAD/well-appearing, physical exam as above, will change wound VAC dressing in the ED, & patient follow-up with her surgeon tomorrow as scheduled Discharge Plan Discharge Clinical Impression: Encounter for wound care Patient Disposition: Home, Self-Care Instructions: Acute Wounds (ED) Additional Instructions: Follow-up with her surgeon tomorrow as scheduled If you develop fever, chills, abdominal pain, nausea/vomiting please return to the ED Prescriptions: No Action valganciclovir 450 mg tablet 2 tab PO DAILY RF: 0 nystatin 100,000 unit/mL suspension 5 ml PO QID RF: 0 sulfamethoxazole-trimethoprim 400-80 mg tablet 1 tab PO DAILY RF: 0 fluconazole 200 mg tablet 1 tab PO DAILY RF: 0 pantoprazole 20 mg tablet,delayed release (DR/EC) 1 tab PO DAILY RF: 0 amlodipine 10 mg tablet 1 tab PO DAILY RF: 0 calcitriol 0.5 mcg capsule 1 cap PO DAILY RF: 0 docusate sodium 100 mg capsule 1 cap PO BID RF: 0 gabapentin 300 mg capsule 1 cap PO TID RF: 0 furosemide 20 mg tablet 20 mg PO DAILY RF: 0 albuterol sulfate [Ventolin HFA] 90 mcg/actuation HFA aerosol inhaler 2 puff inhalation Q4-6H RF: 0 Eliquis 5 mg tablet 1 tab PO BID RF: 0 Breo Ellipta 100-25 mcg/dose blister with device 1 puff inhalation DAILY RF: 0 Lokelma 5 gram powder in packet 1 packet PO DAILY RF: 0 acetaminophen 650 mg tablet extended release 650 mg PO Q12H 30 Days Qty: 60 RF: 0 Referrals: ED Physician,Generic [Emergency Provider] - 1 day (Follow-up with your surgeon tomorrow)
--- NOTE | 2020-12-23 10:52 | PC.NURSE ---
wound vac dressing changed under sterile field, pt tolerated well. Wound vac re attached and functioning as ecpected, pt states she is having no pain. She awaits discharge
== END 2020-12-23 10:54 | disposition home or self-care (01) ==
PROVIDERS: Emergency Provider Emergency Medicine; PCP Physician Assistant
DX: Z48.01 Encounter for change or removal of surgical wound dressing (principal); Z94.0 Kidney transplant status
CPT/HCPCS: 99283; 99284

== ENCOUNTER 2021-02-21 08:31 | Outpatient (REF) | payer MEDICARE, MEDICAID, SELFPAY ==
[2021-02-22 14:39] LABS: CT PCR NOT DETECTED (Not Detect.); NG PCR NOT DETECTED (Not Detect.)
[2021-02-23 10:50] LABS: BV Int Neg Control Negative (Negative); BV Int Pos Control Positive (Positive)
[2021-02-28 23:20] LABS: HPV 16 RNA NOT DETECTED (NOT DETECTED); HPV mRNA E6/E7 rflx Detected (Not Detected)
== END 2021-02-21 08:32 | disposition home or self-care (01) ==
LOC: HO.LAB 08:31
PROVIDERS: PCP Physician Assistant; Visit Provider Advanced Practice Midwife
DX: Z01.419 Encounter for gynecological examination (general) (routine) without abnormal findings (principal); Z11.51 Encounter for screening for human papillomavirus (HPV); Z20.2 Contact with and (suspected) exposure to infections with a predominantly sexual mode of transmission; Z94.0 Kidney transplant status
CPT/HCPCS: 87480; 87491; 87510; 87591; 87624; 87625; 87660; 88142; 99212

== ENCOUNTER → 2021-02-24 13:17 | Outpatient (BNVA) | payer MEDICARE, MEDICAID, SELFPAY | PROVIDERS: PCP Physician Assistant; Visit Provider Internal Medicine Pulmonary Disease | DX: G47.33 Obstructive sleep apnea (adult) (pediatric) (principal); R06.00 Dyspnea, unspecified | CPT/HCPCS: 99202 ==

== ENCOUNTER 2021-02-28 10:42 | Outpatient (REF) | payer MEDICARE, MEDICAID, SELFPAY ==
--- NOTE | 2021-02-28 12:28 | PFT_ITS ---
INDICATION: Dyspnea. SPIROMETRY: The FEV1 to FVC of 91% with an FEV1 of 2.69 L, which is 120% predicted, FVC 2.95 L, which is 107% predicted. No significant response to bronchodilators noted. Maximum voluntary ventilation 81% predicted. LUNG VOLUMES: Total lung capacity 106% predicted with residual volume 121% predicted. Expiratory reserve volume of 17% predicted. DIFFUSION CAPACITY: DLCO 57% predicted. COMPARISONS: None. INTERPRETATION: No obstructive nor restrictive ventilatory defects identified. No significant response to bronchodilators noted. Normal maximum voluntary ventilation. Lung volumes are normal except for decrease in the expiratory reserve volume secondary to an elevated BMI. The patient does have a moderate diffusion impairment. Needs to consider underlying pulmonary vascular conditions and/or occult interstitial lung conditions. When compared to this pulmonary function studies from 2016, there was a significant increase in the FVC, a significant increase in the FEV1, a significant increase in the total lung capacity, and a significant decrease in the diffusion capacity. Clinical correlation warranted. MD ERICK Turner/MODL / [id number]
== END 2021-02-28 10:43 | disposition home or self-care (01) ==
LOC: HO.RESP 10:42
PROVIDERS: PCP Physician Assistant; Visit Provider Internal Medicine Pulmonary Disease
DX: R06.00 Dyspnea, unspecified (principal)
CPT/HCPCS: 94060; 94727; 94729

== ENCOUNTER → 2021-03-07 11:33 | Outpatient (BNVA) | payer MEDICARE, MEDICAID, SELFPAY | PROVIDERS: PCP Physician Assistant; Visit Provider Internal Medicine Pulmonary Disease | DX: R06.00 Dyspnea, unspecified (principal); G47.33 Obstructive sleep apnea (adult) (pediatric); R94.2 Abnormal results of pulmonary function studies; J84.10 Pulmonary fibrosis, unspecified; E11.22 Type 2 diabetes mellitus with diabetic chronic kidney disease; N18.9 Chronic kidney disease, unspecified; E66.9 Obesity, unspecified; F17.210 Nicotine dependence, cigarettes, uncomplicated; Z68.39 Body mass index [BMI] 39.0-39.9, adult; Z94.0 Kidney transplant status; Z99.2 Dependence on renal dialysis; Z88.2 Allergy status to sulfonamides; Z88.8 Allergy status to other drugs, medicaments and biological substances; Z88.6 Allergy status to analgesic agent; Z88.1 Allergy status to other antibiotic agents; Z91.013 Allergy to seafood; Z79.52 Long term (current) use of systemic steroids; Z79.899 Other long term (current) drug therapy | CPT/HCPCS: 99212 ==

== ENCOUNTER → 2021-03-10 15:50 | Outpatient (BNVA) | payer MEDICARE, MEDICAID, SELFPAY | PROVIDERS: Visit Provider Obstetrics & Gynecology | DX: Z30.09 Encounter for other general counseling and advice on contraception (principal) | CPT/HCPCS: Q3014 ==

== ENCOUNTER 2021-03-12 13:44 | Outpatient (REF) | payer MEDICARE, MEDICAID, SELFPAY ==
--- NOTE | ~2021-03-12 | CT_ITS ---
EXAMINATION: CT CHEST WITHOUT CONTRAST CLINICAL INFORMATION: Pulmonary fibrosis COMPARISON: Previous chest CT September 2019 TECHNIQUE: Multidetector volumetric CT imaging of the chest was done. Axial MIP volume rendering provided. Sagittal and coronal reformatted images were obtained. This CT examination was performed using dose optimization techniques as appropriate, variously including the following: *Automated exposure control *Adjustment of mA and/or kV according to patient size (this includes techniques or standardized protocols for targeted exams where dose is matched to indication/reason for exam; i.e. extremities or head) *Use of iterative reconstruction technique DLP: 301 mGy-cm FINDINGS: LUNGS: There is scarring or chronic subsegmental atelectasis seen in the right lower lobe. This is similar to 06/08/2019 exam. This is new from previous chest CTA April 2017. The lungs are otherwise clear. No evidence of interstitial lung disease, emphysema or bronchiectasis is seen. There is no endobronchial or endotracheal lesion. MEDIASTINUM: The right lobe of the thyroid gland has been removed. The heart does not appear enlarged. There is mild coronary artery calcification. There are no enlarged lymph nodes. There is no pericardial effusion. PLEURA: There is no pleural effusion. There is pleural thickening adjacent to the area of scarring or chronic subsegmental atelectasis in the right lower lobe. AXILLA: There are small bilateral axillary lymph nodes. No enlarged lymph nodes or chest wall mass is seen. There is a stent in the left axilla. UPPER ABDOMEN: The kidneys appear small. There is an IVC filter partially visualized. OSSEOUS STRUCTURES: There are degenerative changes of the spine. The bones appear sclerotic similar to previous exam. CT/CT chest wo con IMPRESSION: Stable scarring or chronic subsegmental atelectasis in the right lower lobe and adjacent mild pleural thickening from September 2019. This is new from previous chest CTA April 2017.. No evidence of interstitial lung disease. Fleischner guidelines were followed.
== END 2021-03-12 13:45 | disposition home or self-care (01) ==
LOC: HO.CT 13:44
PROVIDERS: Visit Provider Internal Medicine Pulmonary Disease
DX: R94.2 Abnormal results of pulmonary function studies (principal); J84.10 Pulmonary fibrosis, unspecified
CPT/HCPCS: 71250

== ENCOUNTER → 2021-03-17 13:10 | Outpatient (BNVA) | payer MEDICARE, MEDICAID, SELFPAY | PROVIDERS: Visit Provider Advanced Practice Midwife | DX: Z30.09 Encounter for other general counseling and advice on contraception (principal) | CPT/HCPCS: 99212 ==

== ENCOUNTER → 2021-03-18 11:00 | Outpatient (BNVA) | payer MEDICARE, MEDICAID, SELFPAY | PROVIDERS: Visit Provider Internal Medicine Pulmonary Disease | DX: R06.00 Dyspnea, unspecified (principal); R94.2 Abnormal results of pulmonary function studies | CPT/HCPCS: 99212 ==

== ENCOUNTER 2021-05-16 08:05 | Outpatient (REF) | payer MEDICARE, MEDICAID, SELFPAY ==
--- NOTE | ~2021-05-16 | MM_ITS ---
EXAMINATION: MM SCREENING DIGITAL BREAST TOMOSYNTHESIS, BILATERAL CLINICAL INFORMATION: Screening. Asymptomatic. Right ultrasound-guided biopsy 07/31/2020 (PASH). Remote reduction mammoplasty, 2000. . The lifetime risk of breast cancer based on the Tyrer-Cuzick Model is 11%. COMPARISON: Mammography: 07/31/2020, 05/15/2020, 05/10/2019, 08/05/2018, 05/04/2018; ultrasound left breast 08/05/2018; ultrasound bilateral breasts 06/20/2020; ultrasound-guided core biopsy right breast 07/31/2020. TECHNIQUE: Digital breast tomosynthesis is performed in both the craniocaudal and mediolateral oblique views along with computer-aided detection (CAD). Synthesized 2D images are generated from the tomosynthesis. FINDINGS: There are scattered areas of fibroglandular density (ACR BI-RADS breast composition Category b). There is stable bilateral scarring consistent with the reduction mammoplasty. Biopsy clip marker again seen overlying stable oval biopsy proven PASH lesion. There is no interval mass or architectural abnormality or developing density in either breast. No abnormal calcifications. No significant changes. MM/MM tomosynthesis screening BI IMPRESSION: No mammographic evidence of malignancy. ASSESSMENT: BI-RADS 2: Benign RECOMMENDATION: Routine annual mammography screening. This patient's information was entered into a reminder system with a target due date for their next mammogram.
== END 2021-05-16 08:06 | disposition home or self-care (01) ==
LOC: HO.MAMMO 08:05
PROVIDERS: Visit Provider Physician Assistant
DX: Z12.31 Encounter for screening mammogram for malignant neoplasm of breast (principal)
CPT/HCPCS: 77063; 77067

== ENCOUNTER → 2021-05-21 14:09 | Outpatient (REF) | payer MEDICARE, MEDICAID, SELFPAY ==
--- NOTE | 2021-05-21 14:16 | CA_ITS ---
Transthoracic Echocardiogram Patient (Last, First, Middle): Dara Robles R Gender: Female Date of : 1975 Age: 45 Procedure Date: 05/21/2021 Procedure Type: Transthoracic Echocardiogram Location: OP Height: 167.64 cm Weight: 120.2 kg BSA: 2.25 m2 Heart Rate: bpm BP: 128 / 62 mmHg Globe Tester: CHANDA Referring MD: Alexx Baum PA-C Symptoms: R06.00 - Dyspnea, unspecified Study Quality: Fair ECG Rhythm: Sinus Conclusions: - The left ventricular systolic function is normal. The visually estimated ejection fraction is between 65-70%. - There is mild aortic valve stenosis. - There is mild mitral annular calcification. - Mild pulmonary hypertension is present. Findings Left Ventricle Normal left ventricular cavity size. There is normal left ventricular wall thickness. The left ventricular systolic function is normal. The visually estimated ejection fraction is between 65-70%. There is no evidence of regional wall motion abnormalities. Diastolic function is normal for age. Right Ventricle Normal right ventricular cavity size and systolic function. Atria Both atria are normal in size. Aortic Valve There is a normal trileaflet aortic valve. There is mild calcification of the aortic valve. There is mild aortic valve stenosis. The peak aortic velocity is 3.01 m/s with a calculated peak gradient of 36 mmHg. The mean gradient is 19 mmHg. The aortic valve area is 1.52 cm2. There is no aortic valve regurgitation. Stroke volume also elevated and may contribute to elevated gradients. Dimensionless index 0.5. Mitral Valve There is mild mitral annular calcification. There is trace mitral valve regurgitation. There is no mitral valve stenosis. Pulmonic Valve The pulmonic valve was not well visualized. Tricuspid Valve There is trace tricuspid valve regurgitation. The right ventricular systolic pressure is 38 mmHg. Mild pulmonary hypertension is present. Great Vessels The aortic annulus, sinuses of valsalva, and asc aorta are normal in size. Venous The inferior vena cava is normal in size and collapses greater than 50% with inspiration. Pericardium/Pleural There is no evidence of pericardial effusion. Prior Study Comparison No prior study available for comparison. Measurements 2D Linear Measurements IVSd: 1.05 0.6-0.9/0.6-1.0 cm LVIDd: 4.58 3.9-5.3/4.2-5.9 cm LVIDd Index: 2.04 2.4-3.2/2.2-3.1 cm/m2 LVIDs: 2.91 2.0-3.6 cm LVPWd: 0.92 0.7-1.1 cm Ao Root: 2.60 2.1-3.5 cm LA Diam: 3.50 2.7-3.8/3.0-4.0 cm LAIDs Index: 1.56 1.5-2.3 cm/m2 LV Mass: 192.20 67-162/88-224 g LV Mass Index: 85.42 43-95/49-115 g/m2 LVOT Diam: 1.90 3.0+(-)1.3 cm 2D Systolic Function EF 4C: 58.10 >55% EF 2C: 52.00 >55% EF BiP: 55.30 >55% Mitral Valve MV Pk E: 1.40 MV PK A: 1.13 MV Decel Time: 275.00 E/A: 1.20 E'Lateral: 7.94 E'Medial: 8.05 E/E' Med: 17.40 E/E' Lat: 17.60 PHT: 81.00 MVA PHT: 2.72 Decel Forest: 5.09 Aortic Valve AoV Pk Andrew: 3.01 AoV Mn Andrew: 2.09 AoV VTI: 0.62 AoV Pk Grad: 36.00 Aov Mn Grad: 19.00 DEVAUGHN Cont.VTI: 1.52 LVOT LVOT Pk Andrew: 1.52 LVOT Mn Andrew: 1.09 LVOT VTI: 0.33 LVOT Pk Grad: 9.00 LVOT Mn Grad: 5.00 LVOT Diam: 1.90 LVOT Area: 2.84 Diastolic Function MV Pk E: 1.40 MV Pk A: 1.13 E/A: 1.20 E'Medial: 8.05 E/E' Med: 17.40 E' Laterial: 7.94 E/E' Lat: 17.60 Right Ventricle TAPSE (mm): 20.00 TVS' Andrew: 12.00 Tricuspid Valve TR Pk Andrew: 2.74 TR Pk Grad: 30.00 RA Press: 8.00 RVSP: 38.00 Great Vessels Aorta Ao Root-2D: 2.60 2.0-3.7 cm Ao Asc: 2.30 2.1-3.4 cm Updated in Other Vendor System with Status of Final Norman Gutierrez MD electronically signed on 05/23/2021 11:15:26 AM with status of Final
== END ==
LOC: HO.CARD 14:09
PROVIDERS: Visit Provider Physician Assistant
DX: R06.00 Dyspnea, unspecified (principal)
CPT/HCPCS: 93306

== ENCOUNTER 2021-05-26 13:30 | Outpatient (REF) | payer MEDICARE, MEDICAID, SELFPAY | END 2021-05-26 13:31 | disposition home or self-care (01) | LOC: HO.MDS 13:30 | PROVIDERS: Visit Provider Physician Assistant | DX: D50.9 Iron deficiency anemia, unspecified (principal) | CPT/HCPCS: 96365; J1756 ==

== ENCOUNTER 2021-05-28 13:07 | Outpatient (REF) | payer MEDICARE, MEDICAID, SELFPAY | END 2021-05-28 13:08 | disposition home or self-care (01) | LOC: HO.MDS 13:07 | PROVIDERS: Visit Provider Physician Assistant | DX: D50.9 Iron deficiency anemia, unspecified (principal) | CPT/HCPCS: 96365; J1756 ==

== ENCOUNTER 2021-05-30 12:59 | Outpatient (REF) | payer MEDICARE, MEDICAID, SELFPAY | END 2021-05-30 13:00 | disposition home or self-care (01) | LOC: HO.MDS 12:59 | PROVIDERS: Visit Provider Physician Assistant | DX: D50.9 Iron deficiency anemia, unspecified (principal); Z94.0 Kidney transplant status | CPT/HCPCS: 96365; J1756 ==

== ENCOUNTER 2021-06-02 13:09 | Outpatient (REF) | payer MEDICARE, MEDICAID, SELFPAY | END 2021-06-02 13:10 | disposition home or self-care (01) | LOC: HO.MDS 13:09 | PROVIDERS: Visit Provider Physician Assistant | DX: D50.9 Iron deficiency anemia, unspecified (principal); Z94.0 Kidney transplant status | CPT/HCPCS: 96365; J1756 ==

== ENCOUNTER 2021-06-04 12:52 | Outpatient (REF) | payer MEDICARE, MEDICAID, SELFPAY | END 2021-06-04 12:53 | disposition home or self-care (01) | LOC: HO.MDS 12:52 | PROVIDERS: Visit Provider Physician Assistant | DX: D50.9 Iron deficiency anemia, unspecified (principal); N18.9 Chronic kidney disease, unspecified; Z94.0 Kidney transplant status | CPT/HCPCS: 96365; J1756 ==

== ENCOUNTER 2021-06-18 13:14 | Outpatient (REF) | payer MEDICARE, MEDICAID, SELFPAY ==
[2021-06-18 17:08] LABS: CT PCR NOT DETECTED (Not Detect.); NG PCR NOT DETECTED (Not Detect.)
[2021-06-19 13:35] LABS: BV Int Neg Control Negative (Negative); BV Int Pos Control Positive (Positive)
== END 2021-06-18 13:15 | disposition home or self-care (01) ==
LOC: HO.LAB 13:14
PROVIDERS: PCP Physician Assistant; Visit Provider Advanced Practice Midwife
DX: Z11.3 Encounter for screening for infections with a predominantly sexual mode of transmission (principal); N89.8 Other specified noninflammatory disorders of vagina; R82.90 Unspecified abnormal findings in urine; Z20.2 Contact with and (suspected) exposure to infections with a predominantly sexual mode of transmission
CPT/HCPCS: 81003; 87480; 87491; 87510; 87591; 87660; 99212

== ENCOUNTER 2021-07-09 15:15 | Outpatient (REF) | payer MEDICARE, MEDICAID, SELFPAY ==
[2021-07-09 20:56] LABS: CT PCR NOT DETECTED (Not Detect.); NG PCR NOT DETECTED (Not Detect.)
[2021-07-10 13:02] LABS: BV Int Neg Control Negative (Negative); BV Int Pos Control Positive (Positive)
== END 2021-07-09 15:16 | disposition home or self-care (01) ==
LOC: HO.LAB 15:15
PROVIDERS: PCP Physician Assistant; Visit Provider Advanced Practice Midwife
DX: N89.8 Other specified noninflammatory disorders of vagina (principal); Z20.2 Contact with and (suspected) exposure to infections with a predominantly sexual mode of transmission
CPT/HCPCS: 81003; 87480; 87491; 87510; 87591; 87660; 99212

== ENCOUNTER 2021-07-19 20:46 | Emergency (ER) | payer MEDICARE, MEDICAID, SELFPAY ==
--- NOTE | ~2021-07-19 | XR_ITS ---
EXAMINATION: XR KNEE, LEFT CLINICAL INFORMATION: Swelling and pain COMPARISON: 12/14/2016 TECHNIQUE: Four views of the left knee. FINDINGS: Moderate degenerative changes. No acute fracture is seen. There is no dislocation. Small joint effusion is noted. XR/XR knee LT 3V IMPRESSION: Moderate degenerative changes. No acute fracture or dislocation.
[2021-07-19 22:04] VITALS: BP 142/76; PULSE 78; RESP 18; TEMP 36.7; O2SAT 98; BMI 42.7
--- NOTE | 2021-07-19 22:12 | ED.LOWEXIN ---
HPI - Extremity Injury (Lower) General Chief Complaint: Extremity Injury, Lower Stated Complaint: fell on foot, hurts when she walks, knee swollen Source: patient Mode of arrival: ambulatory Limitations: no limitations History of Present Illness HPI Narrative: 45-year-old female presents with chronic left knee pain. States she has been treated by an orthopedic in [facility] for the past several months. Has had several injections to the site. Noted that while she was walking that she had increased pain and felt a popping crackling sound every time she bent her knee. She has had this in the past but today it has worsened. complaint: knee injury Onset (ago): month(s) Type of Injury: unknown Place: street/outdoors Severity: moderate Severity scale (1-10): 7 Relieving factors: nothing Exacerbating factors: weight bearing, movement and palpation Associated symptoms: snap/pop sensation and swelling Other symptoms: none Treatments prior to arrival: cold therapy, NSAIDS and other (Prior cortisone injections) Related Data Home Medications Medication Instructions Recorded Confirmed amlodipine 10 mg tablet 1 tab PO DAILY 11/30/20 03/18/21 apixaban 5 mg tablet (Eliquis) 1 tab PO BID 11/30/20 03/18/21 calcitriol 0.5 mcg capsule 1 cap PO DAILY 11/30/20 12/24/20 docusate sodium 100 mg capsule 1 cap PO BID 11/30/20 03/18/21 fluconazole 200 mg tablet 1 tab PO DAILY 11/30/20 03/18/21 fluticasone furoate 100 1 puff INHALATION DAILY 11/30/20 03/18/21 mcg-vilanterol 25 mcg/dose inhalation powder (Breo Ellipta) pantoprazole 20 mg tablet,delayed 1 tab PO DAILY 11/30/20 03/18/21 release sodium zirconium cyclosilicate 5 1 packet PO DAILY 11/30/20 03/18/21 gram oral powder packet (Lokelma) ferrous sulfate 325 mg (65 mg 325 mg PO Q OTHER DAY tab 12/19/20 03/18/21 iron) tablet (Feosol) folic acid 1 mg tablet 1 mg PO DAILY 12/19/20 03/18/21 mycophenolate mofetil 250 mg 500 mg PO BID 12/19/20 03/18/21 capsule (CellCept) prednisone 5 mg tablet 5 mg PO DAILY 12/19/20 03/18/21 sennosides 8.6 mg tablet (senna) 8.6 mg PO BID 12/19/20 03/18/21 tacrolimus 1 mg capsule, 1 mg PO Q12H 12/19/20 03/18/21 immediate-release tacrolimus 5 mg capsule, 5 mg PO Q12H 12/19/20 03/18/21 immediate-release etonogestrel 68 mg subdermal SUBDERMAL 06/18/21 implant (Nexplanon) sodium bicarbonate 650 mg tablet 1,300 mg PO TID PRN tab 06/18/21 sulfamethoxazole 400 PO 06/18/21 mg-trimethoprim 80 mg tablet Previous Rx's Medication Instructions Recorded acetaminophen 650 mg 650 mg PO Q12H 30 Days #60 tab 12/19/20 tablet,extended release fluconazole 150 mg tablet 150 mg PO ONCE 1 Days #1 tab 06/20/21 (Diflucan) Allergies Allergy/AdvReac Type Severity Reaction Status Date / Time Cefazolin Sodium Allergy Unknown unknown Verified 07/09/21 15:20 codeine Allergy Unknown unknown Verified 07/09/21 15:20 hydrocodone [From VICODIN] Allergy Unknown UNKNOWN Verified 07/09/21 15:20 lisinopril [LISINOPRIL] Allergy Unknown EYES SWELL Verified 07/09/21 15:20 SHUT, angioedema, angioedema Motrin Allergy Unknown unknown Verified 07/09/21 15:20 piperacillin [Zosyn] Allergy Unknown rash Verified 07/09/21 15:20 shellfish Allergy Unknown unknown Verified 07/09/21 15:20 Sulfa (Sulfonamide Allergy Unknown UNKNOWN Verified 07/09/21 15:20 Antibiotics) [SULFA (SULFONAMIDE ANTIBIOTICS)] tramadol [TRAMADOL] Allergy Unknown HIVES Verified 07/09/21 15:20 vancomycin Allergy Unknown rash Verified 07/09/21 15:20 azithromycin AdvReac Unknown dizziness/A Verified 07/09/21 15:20 Review of Systems Review of Systems: Constitutional: No Fever, No Chills ENT/Mouth: No Ear Pain, No Hoarseness, No sore throat Eyes: No Eye Pain, No Swelling, No Redness, No Foreign Body Cardiovascular: No Chest Pain, No SOB Respiratory: No Cough, No Dyspnea Gastrointestinal: No Nausea, No Vomiting, No Diarrhea, No abdominal Pain Genitourinary: No Dysuria, No Hematuria Musculoskeletal: positive left knee joint pain, No Myalgias, No Joint Swelling Skin: No Skin lacerations, No rash Neuro: No Weakness, No Numbness, No Paresthesias, No Loss of Consciousness, No Dizziness, No Headache Psych: No Anxiety/Panic, No Depression Heme/Lymph: no easy bruising, no Lymphadenopathy Endocrine: No Polyuria, No Polydipsia Yes all other systems are reviewed and are negative [facility] Past Medical History Attestation statement: The following information was validated with the patient. Source: old records reviewed Medical History Ankylosing spondylitis of lumbar region Chronic kidney disease Right lumbar radiculopathy Surgical History Hx of bilateral breast reduction surgery S/P kidney transplant Status post dialysis Family History Family History Mother No problems noted. Father No problems noted. Social History Social History Housing: Apartment Alcohol intake: never Patient Tobacco Use Status: Former Tobacco user Cigarettes Per Day: 1 Years Smoked: 15 Advance Directives: No Advance Directives Information Provided: No Advance Directives Date on File: 02/26/20 Patient : No service: No Current occupational status: disabled Gender identity: Female Physical Exam Vital Signs: Vital Signs: Last Vital Signs Temp 98.0 F 07/19/21 22:04 Pulse 78 07/19/21 22:04 Resp 18 07/19/21 22:04 BP 142/76 H 07/19/21 22:04 Pulse Ox 98 07/19/21 22:04 BMI result Body Mass Index 42.7 Appearance: Alert. Oriented X3. No acute distress. Eyes: Pupils equal, round and reactive to light. ENT: Pharynx normal. Neck: Normal inspection. Neck supple. CVS: Normal heart rate and rhythm. Pulses normal. Respiratory: No respiratory distress. Breath sounds normal. Abdomen: Soft and nontender. Skin: Skin warm and dry. Normal skin color. Normal skin turgor. Extremities: No lower extremity edema. Tenderness noted to medial and lateral suprapatella region, small effusion noted. Brisk capillary refill and equal pulses to bilateral lower extremities. Neuro: No motor deficit. No sensory deficit. Cranial nerves 2-12 intact. Course Course Course Narrative: 45-year-old female presents with left knee pain. Has the Orthopedic person that follows her in [facility]. Has had 2 cortisone injections to this left knee. States that she does have crackling and popping when she walks per baseline however today while she was walking to the bus the pain, crackling and popping sensations worsened. At this time she has significant tenderness to palpation to the suprapatellar and medial and lateral aspects. Small joint effusion noted. Will order x-rays. 23:23 x-rays positive for small joint effusion. Not large enough for me to comfortably aspirate the joint. Patient does have an established orthopedic surgeon, I will refer her back to him. Place patient in Mychal wrap and provide crutches.Patient verbalized understanding of and agrees to plan of care to discharge home. Verbalized understanding of signs and symptoms indicating need for emergent intervention MDM - Extremity Injury (Lower) Differential Diagnosis Differential diagnosis: Likely acute internal derangement of knee Medical Records Attestation: I reviewed the patient's medical records. Imaging Data Left knee x-ray: Attestation: I personally reviewed and interpreted this imaging study as follows: Radiologist's impression: EXAMINATION: XR KNEE, LEFT CLINICAL INFORMATION: Swelling and pain? COMPARISON: 12/14/2016? TECHNIQUE: Four views of the left knee. FINDINGS: Moderate degenerative changes. No acute fracture is seen. There is no dislocation. Small joint effusion is noted.? XR/XR knee LT 3V IMPRESSION: Moderate degenerative changes. No acute fracture or dislocation. ? Discharge Plan Discharge Clinical Impression: Effusion of knee, Arthritis Patient Disposition: Home, Self-Care Instructions: Swollen Knee Joint (ED), Arthritis (ED), R.I.C.E. Treatment (ED) Additional Instructions: You were evaluated for left knee pain. X-rays indicate a small knee effusion. Please follow-up with your orthopedic for this finding. Keep Mychal wrap in place as needed for swelling and pain management. Use crutches as needed for comfort. Use Tylenol as needed for pain management. Rest, ice and elevate the extremity to help reduce pain and swelling. Thank you for choosing this emergency department for evaluation. Please follow-up with primary care physician as needed. Return to the emergency department for any new, concerning, or worsening symptoms. Prescriptions: No Action fluconazole [Diflucan] 150 mg tablet 150 mg PO ONCE 1 Days Qty: 1 0RF fluconazole 200 mg tablet 1 tab PO DAILY 0RF pantoprazole 20 mg tablet,delayed release (DR/EC) 1 tab PO DAILY 0RF amlodipine 10 mg tablet 1 tab PO DAILY 0RF calcitriol 0.5 mcg capsule 1 cap PO DAILY 0RF docusate sodium 100 mg capsule 1 cap PO BID 0RF Eliquis 5 mg tablet 1 tab PO BID 0RF Breo Ellipta 100-25 mcg/dose blister with device 1 puff inhalation DAILY 0RF Lokelma 5 gram powder in packet 1 packet PO DAILY 0RF mycophenolate mofetil [CellCept] 250 mg capsule 500 mg PO BID 0RF tacrolimus 1 mg capsule 1 mg PO Q12H 0RF tacrolimus 5 mg capsule 5 mg PO Q12H 0RF ferrous sulfate [Feosol] 325 mg (65 mg iron) tablet 325 mg PO Q OTHER DAY 0RF folic acid 1 mg tablet 1 mg PO DAILY 0RF prednisone 5 mg tablet 5 mg PO DAILY 0RF sennosides [senna] 8.6 mg tablet 8.6 mg PO BID 0RF acetaminophen 650 mg tablet extended release 650 mg PO Q12H 30 Days Qty: 60 0RF Nexplanon 68 mg implant subdermal 0RF sulfamethoxazole-trimethoprim 400-80 mg tablet PO 0RF sodium bicarbonate 650 mg tablet 1,300 mg PO TID PRN0RF
== END 2021-07-19 23:55 | disposition home or self-care (01) ==
PROVIDERS: Emergency Provider Emergency Medicine Emergency Medical Services; PCP Physician Assistant
DX: M25.462 Effusion, left knee (principal); M17.12 Unilateral primary osteoarthritis, left knee; M25.562 Pain in left knee
CPT/HCPCS: 73562; 99283

== ENCOUNTER 2021-07-30 14:08 | Outpatient (REF) | payer MEDICARE, MEDICAID, SELFPAY ==
[2021-07-31 09:45] LABS: BV Int Neg Control Negative (Negative); BV Int Pos Control Positive (Positive)
== END 2021-07-30 14:09 | disposition home or self-care (01) ==
LOC: HO.LAB 14:08
PROVIDERS: PCP Physician Assistant; Visit Provider Advanced Practice Midwife
DX: N89.8 Other specified noninflammatory disorders of vagina (principal)
CPT/HCPCS: 87480; 87510; 87660; 99212

== ENCOUNTER 2021-08-02 15:28 | Emergency (ER) | payer MEDICARE, MEDICAID, SELFPAY ==
--- NOTE | 2021-08-02 | ECG_ITS ---
Test Reason : CHEST PAIN Blood Pressure : / mmHG Vent. Rate : 071 BPM Atrial Rate : 071 BPM P-R Int : 136 ms QRS Dur : 086 ms QT Int : 414 ms P-R-T Axes : 036 004 032 degrees QTc Int : 449 ms Normal sinus rhythm Normal ECG When compared with ECG of 27-OCT-2019 16:02, No significant change was found Referred By: Generic ED Physician Electronically Signed By:Ed Fernandez
--- NOTE | ~2021-08-02 | XR_ITS ---
EXAMINATION: XR CHEST CLINICAL INFORMATION: Chest pain and shortness of breath COMPARISON: CTA 03/12/2021. Chest x-ray 10/27/2019. TECHNIQUE: AP and lateral views of the chest FINDINGS: Streaky airspace disease in the right lower lobe. Similar finding on recent chest CT suggesting a subacute/chronic process. Clinical correlation required as to etiology. No endotracheal or endobronchial lesion on recent CT. Grossly stable and normal heart and mediastinum. Sclerotic bones. Vascular stents in the left arm. XR/XR chest 2V IMPRESSION: Persistent streaky airspace disease in the right lower lobe.
[2021-08-02 15:37] VITALS: BP 130/70; BP 142/78; PULSE 74; RESP 18; TEMP 36.6; O2SAT 100; O2SAT 97; BMI 42.6
[2021-08-02 16:42] LABS: MANUAL DIFF FLAG NO
[2021-08-02 16:45] LABS: Basophils Percent Auto 0.2 % (0-2); Eosinophils Absolute Auto 0.1 X10*3/uL (0.0-0.4); Eosinophils Percent Auto 1.1 % (0-4); Hematocrit 35.2 % (37.0-47.0); Hemoglobin 10.5 g/dl (12.0-16.0); Imm Gran Abs Auto 0.11 X10*3/uL (0.00-0.03); Imm Gran Pct Auto 0.8 % (0.0-0.4); Lymphocytes Absolute Auto 0.7 X10*3/uL (1.2-4.9); Lymphocytes Percent Auto 5.2 % (20-40); Mean Corpuscular HGB Conc 29.8 g/dl (31.0-35.0); Mean Corpuscular Hemoglobin 23.5 pg (27.0-33.0); Mean Corpuscular Volume 78.9 fL (80.0-98.0); Mean Platelet Volume 10.2 fL (9.4-12.3); Monocytes Absolute Auto 0.7 X10*3/uL (0.1-1.2); Monocytes Percent Auto 5.5 % (2-11); Neutrophils Absolute Auto 11.4 x10*3/uL (2.0-8.3); Neutrophils Percent Auto 87.2 % (45-73); Platelet Count 321 X10*3/uL (160-400); Red Blood Count 4.46 X10*6/uL (4.20-5.50); Red Cell Distribution Width 20.5 % (11.0-16.0)
[2021-08-02 17:01] LABS: Alanine Aminotransferase 11 U/L (0-31); Albumin Level 4.1 g/dL (3.5-5.0); Alkaline Phosphatase 86 U/L (39-117); Anion Gap 16 (12-20); Aspartate Amino Transferase 11 U/L (5-31); Bilirubin Total 0.3 mg/dL (0.0-1.0); Blood Urea Nitrogen 24 mg/dL (9-16); Calcium 9.8 mg/dL (8.4-10.2); Carbon Dioxide 17 mmol/L (22-29); Chloride 109 mmol/L (96-108); Creatinine Clr Calc Pharmacy 53.7; Estimated Glomerular Filt Rate 31; Glucose Random 251 mg/dL (60-115); Potassium 4.6 mmol/L (3.3-5.1); Sodium 137 mmol/L (135-145); Total Protein 8.4 g/dL (6.5-8.0)
[2021-08-02 17:03] LABS: Troponin-I High Sensitivity 6.2 ng/L (<3.5-17.0)
[2021-08-02 17:10] VITALS: PULSE 77; RESP 11
[2021-08-02] MEDS: diphenhydrAMINE HCL 25 MG TABLET 50 MG PO (17:11)
[2021-08-02] MEDS: HYDROmorphone HCl 2 MG TABLET PO (17:11)
--- NOTE | 2021-08-02 17:25 | ED_ITS ---
HPI - Chest Pain General Chief Complaint: Chest Pain Stated Complaint: chest pain Time Seen by Provider: 08/02/21 15:47 Source: patient Mode of arrival: EMS Limitations: no limitations History of Present Illness HPI narrative: 45-year-old female who presents emergency department for evaluation of rapid heart rate and chest pain. The patient states that at around 11:30 she had a caffeine beverage while she was at the [employer]. She states that 1 hour after that she developed a rapid heart rate and a pressure-like sensation in her chest. the patient states she was being wheeled wound in a wheelchair and was not exerting herself at the time of onset of the pain. She points to her mid chest when asked to localize the pain. she states the pain is been a constant pressure like pain since onset. The pain does not change with movement or with breathing. She states that the pain is 7/10. Patient states that she has asthma and always feels short of breath and has dyspnea on exertion. She did feel very shaky, lightheaded and dizzy. She states she also felt anxious. The patient is a renal transplant patient and she has a history of pulmonary embolism in the past. She is currently taking Eliquis. She denied fever, chills, nausea, vomiting, abdominal pain, frequency, urgency, dysuria, change in bowel movements. MD complaint: chest pain Pertinent past history: other ( PE) Onset (ago): hour(s) (4) Timing of current episode: constant Prior episodes: No Onset: after eating ( drinking a caffeinated beverage) Pain location: substernal Pain radiation: none Severity: severe Pain scale (0-10): 7 Quality: heaviness Relieving factors: nothing Exacerbating factors: eating Associated symptoms: other ( dizziness) Treatment prior to arrival: none Related Data On Oral Contraceptives: No Home Medications Medication Instructions Recorded Confirmed amlodipine 10 mg tablet 1 tab PO DAILY 11/30/20 03/18/21 apixaban 5 mg tablet (Eliquis) 1 tab PO BID 11/30/20 03/18/21 calcitriol 0.5 mcg capsule 1 cap PO DAILY 11/30/20 12/24/20 docusate sodium 100 mg capsule 1 cap PO BID 11/30/20 03/18/21 fluticasone furoate 100 1 puff INHALATION DAILY 11/30/20 03/18/21 mcg-vilanterol 25 mcg/dose inhalation powder (Breo Ellipta) pantoprazole 20 mg tablet,delayed 1 tab PO DAILY 11/30/20 03/18/21 release ferrous sulfate 325 mg (65 mg 325 mg PO Q OTHER DAY tab 12/19/20 03/18/21 iron) tablet (Feosol) folic acid 1 mg tablet 1 mg PO DAILY 12/19/20 03/18/21 mycophenolate mofetil 250 mg 500 mg PO BID 12/19/20 03/18/21 capsule (CellCept) prednisone 5 mg tablet 5 mg PO DAILY 12/19/20 03/18/21 sennosides 8.6 mg tablet (senna) 8.6 mg PO BID 12/19/20 03/18/21 etonogestrel 68 mg subdermal SUBDERMAL 06/18/21 implant (Nexplanon) sodium bicarbonate 650 mg tablet 1,300 mg PO TID PRN tab 06/18/21 albuterol sulfate 90 mcg/actuation INHALATION 07/30/21 aerosol inhaler (Ventolin HFA) famotidine 20 mg tablet mg PO DAILY tab 07/30/21 miconazole nitrate 200 mg vaginal mg VAGINAL 07/30/21 suppository (Miconazole-3) tacrolimus 1 mg capsule, 3 mg PO Q12H cap 07/30/21 immediate-release tacrolimus 5 mg capsule, 10 mg PO Q12H cap 07/30/21 immediate-release Previous Rx's Medication Instructions Recorded acetaminophen 650 mg 650 mg PO Q12H 30 Days #60 tab 12/19/20 tablet,extended release Allergies Allergy/AdvReac Type Severity Reaction Status Date / Time Cefazolin Sodium Allergy Unknown unknown Verified 07/30/21 14:09 codeine Allergy Unknown unknown Verified 07/30/21 14:09 hydrocodone [From VICODIN] Allergy Unknown UNKNOWN Verified 07/30/21 14:09 lisinopril [LISINOPRIL] Allergy Unknown EYES SWELL Verified 07/30/21 14:09 SHUT, angioedema, angioedema Motrin Allergy Unknown unknown Verified 07/30/21 14:09 piperacillin [Zosyn] Allergy Unknown rash Verified 07/30/21 14:09 shellfish Allergy Unknown unknown Verified 07/30/21 14:09 Sulfa (Sulfonamide Allergy Unknown UNKNOWN Verified 07/30/21 14:09 Antibiotics) [SULFA (SULFONAMIDE ANTIBIOTICS)] tramadol [TRAMADOL] Allergy Unknown HIVES Verified 07/30/21 14:09 vancomycin Allergy Unknown rash Verified 07/30/21 14:09 azithromycin AdvReac Unknown dizziness/A Verified 07/30/21 14:09 KI Review of Systems Review of Systems: Yes all other systems are reviewed and are negative [facility] Past Medical History Medical History Ankylosing spondylitis of lumbar region Chronic kidney disease Right lumbar radiculopathy Surgical History Hx of bilateral breast reduction surgery S/P kidney transplant Status post dialysis Family History Family History Mother No problems noted. Father No problems noted. Social History Social History Housing: Apartment Alcohol intake: never Patient Tobacco Use Status: Former Tobacco user Cigarettes Per Day: 1 Years Smoked: 15 Advance Directives: No Advance Directives Information Provided: No Advance Directives Date on File: 02/26/20 service: No Current occupational status: disabled Gender identity: Female Physical Exam Vital Signs: Vital Signs: Last Vital Signs Temp 98 F 08/02/21 15:37 Pulse 76 08/02/21 19:58 Resp 22 H 08/02/21 19:58 BP 131/64 08/02/21 19:58 Pulse Ox 96 08/02/21 19:58 BMI result Body Mass Index 42.6 Const: Other: awake, alert, female patient, pleasant, cooperative, does not appear to be in distress HEENT: Head: Yes normal to inspection, Yes normocephalic and Yes atraumatic Ears: external ears normal General nose exam: Normal external nose present Face and sinus: Yes normal facial exam Mouth: Normal oral and palatal mucosa present Throat: Yes posterior oropharynx normal Eyes: General: appearance normal, both eyes and all related structures Pupils: Equal, round and reactive pupils present Neck: Neck: Yes normal visual inspection, Yes no lymphadenopathy, Yes trachea midline and Yes supple Chest: Chest palpation & inspection: normal inspection of the chest and tenderness sternum Resp: Effort & Inspection: normal respiratory effort and able to speak in complete sentences Auscultation: clear to auscultation bilaterally Cardio: Rate: regular rate Rhythm: regular rhythm Heart sounds: S1 normal heart sound present, S2 normal heart sound present and no murmurs GI: Inspection: Yes normal to inspection Palpation (GI): Soft to palpation, nontender and no guarding Auscultation: normal bowel sounds : General: Yes no CVA tenderness Back/Spine/Pelvis: Back: no CVA tenderness Skin: General skin exam: no rashes or lesions noted Neuro: Cranial nerves: Yes CN's II-XII intact bilaterally and Yes Equal, round and reactive pupils present Cognition (Neuro): normal cognition Motor exam (neuro): 5/5 motor strength present throughout Extrem: General: Yes normal to inspection Psych: Appearance: grossly normal Speech and movement: Normal speech and movement present Affect: normal affect Attitude: cooperative Thought process: Normal thought process present Thought content: Normal thought content present Course Course Course Narrative: 45-year-old female who presents emergency department for evaluation of Rapid heart rate andsubsternal chest pressure which began at around 11:30 this morning ( 4 hours prior to coming to the emergency department) after she drank a caffeinated beverage. the patient has had constant pain since onset. Patient's vital signs were unremarkable on presentation and repeat vital signs did reveal an elevated respiratory rate of 22. Patient's exam did reveal tenderness palpation of her sternum. The patient is taking Eliquis for previous PE And she has been compliant with this medication. Laboratory evaluation was ordered the patient has multiple drug allergies is ordered to get Dilaudi 2 mg orally and Benadryl orally as well 2020: Laboratory evaluation: Elevated WBC 17072. Elevated BUN and creatinine of 24 and 1.76 Elevated glucose to 51. First high sensitivity troponin was 6.2. Repeat 3 hours high sensitivity troponin was 5.8 and not significantly changed. Twelve EKG was unremarkable. The patient only got minimal relief after the 1st dose of Dilaudid. she was given a 2nd dose of Dilaudid 2 mg IM with Benadryl 50 mg IM with some improvement of her pain. Patient's laboratory evaluation was unremarkable, she believes that her baseline creatinine is 1.5-1.8. This time, I do not believe that her pain or palpitation is caused by coronary artery disease and may been triggered by the caffeinated beverage that she drank. The patient will be discharged home however she states that she needs to take her transplant rejection medications and her Eliquis at 20:00. She needs to get a ride home and she is concerned about doubling these medications therefore I did order CellCept 1000 mg orally, tacrolimus 13 mg orally and Eliquis 5 mg orally. MDM - Chest Pain Lab Data Result diagrams: 08/02/21 16:37 08/02/21 16:37 Labs: Lab Results 08/02/21 08/02/21 08/02/21 Range/Units 16:37 16:37 16:37 WBC 13.0 H (4.8-10.8) X10*3/uL RBC 4.46 (4.20-5.50) X10*6/uL Hgb 10.5 L (12.0-16.0) g/dl Hct 35.2 L (37.0-47.0) % MCV 78.9 L (80.0-98.0) fL MCH 23.5 L (27.0-33.0) pg MCHC 29.8 L (31.0-35.0) g/dl RDW 20.5 H (11.0-16.0) % Plt Count 321 (160-400) X10*3/uL MPV 10.2 (9.4-12.3) fL Immature Gran % (Auto) 0.8 H (0.0-0.4) % Neut % (Auto) 87.2 H (45-73) % Lymph % (Auto) 5.2 L (20-40) % [place] % (Auto) 5.5 (2-11) % Eos % (Auto) 1.1 (0-4) % Baso % (Auto) 0.2 (0-2) % Lymph # (Auto) 0.7 L (1.2-4.9) X10*3/uL [place] # (Auto) 0.7 (0.1-1.2) X10*3/uL Eos # (Auto) 0.1 (0.0-0.4) X10*3/uL Baso # (Auto) 0.0 (0.0-0.2) X10*3/uL Abs Immat Gran (auto) 0.11 H (0.00-0.03) X10*3/uL Absolute Neuts (auto) 11.4 H (2.0-8.3) x10*3/uL Absolute Nucleated RBC 0.000 (0.0-0.012) X10*3/uL Nucleated RBC % (auto) 0.0 (0.0-0.2) /100WBC Sodium 137 (135-145) mmol/L Potassium 4.6 (3.3-5.1) mmol/L Chloride 109 H (96-108) mmol/L Carbon Dioxide 17 L (22-29) mmol/L Anion Gap 16 (12-20) BUN 24 H (9-16) mg/dL Creatinine 1.76 H (0.5-1.4) mg/dL Estim Creat Clear Calc 53.7 Estimated GFR 31 Random Glucose 251 H (60-115) mg/dL Calcium 9.8 (8.4-10.2) mg/dL Total Bilirubin 0.3 (0.0-1.0) mg/dL AST 11 (5-31) U/L ALT 11 (0-31) U/L Alkaline Phosphatase 86 (39-117) U/L Troponin I High Sens 6.2 (<3.5-17.0) ng/L Total Protein 8.4 H (6.5-8.0) g/dL Albumin 4.1 (3.5-5.0) g/dL 08/02/21 Range/Units 19:38 WBC (4.8-10.8) X10*3/uL RBC (4.20-5.50) X10*6/uL Hgb (12.0-16.0) g/dl Hct (37.0-47.0) % MCV (80.0-98.0) fL MCH (27.0-33.0) pg MCHC (31.0-35.0) g/dl RDW (11.0-16.0) % Plt Count (160-400) X10*3/uL MPV (9.4-12.3) fL Immature Gran % (Auto) (0.0-0.4) % Neut % (Auto) (45-73) % Lymph % (Auto) (20-40) % [place] % (Auto) (2-11) % Eos % (Auto) (0-4) % Baso % (Auto) (0-2) % Lymph # (Auto) (1.2-4.9) X10*3/uL [place] # (Auto) (0.1-1.2) X10*3/uL Eos # (Auto) (0.0-0.4) X10*3/uL Baso # (Auto) (0.0-0.2) X10*3/uL Abs Immat Gran (auto) (0.00-0.03) X10*3/uL Absolute Neuts (auto) (2.0-8.3) x10*3/uL Absolute Nucleated RBC (0.0-0.012) X10*3/uL Nucleated RBC % (auto) (0.0-0.2) /100WBC Sodium (135-145) mmol/L Potassium (3.3-5.1) mmol/L Chloride (96-108) mmol/L Carbon Dioxide (22-29) mmol/L Anion Gap (12-20) BUN (9-16) mg/dL Creatinine (0.5-1.4) mg/dL Estim Creat Clear Calc Estimated GFR Random Glucose (60-115) mg/dL Calcium (8.4-10.2) mg/dL Total Bilirubin (0.0-1.0) mg/dL AST (5-31) U/L ALT (0-31) U/L Alkaline Phosphatase (39-117) U/L Troponin I High Sens 5.6 (<3.5-17.0) ng/L Total Protein (6.5-8.0) g/dL Albumin (3.5-5.0) g/dL ECG Data ECG #1: Attestation: I personally reviewed and interpreted this ECG as follows: Interpretation: Normal sinus rhythm rate of 71, normal VA interval QRS interval and QTC interval, inverted T-wave in lead 3, no ST segment elevation, no ST segment depression , no PACs, no PVCs, this is a normal EKG. Discharge Plan Discharge Clinical Impression: Chest heaviness, Heart palpitations, Kidney transplant recipient Patient Disposition: Home, Self-Care Instructions: Chest Pain (ED), Heart Palpitations (ED) Additional Instructions: your EKG was unremarkable. your high sensitivity troponin was detectable but not elevated at 6.2 and 5.83 hours later. This is reassuring and suggests that you have not had a heart attack as the cause of your pain. Your BUN and creatinine were 24 and 1.76. You should confirm with your transplant doctor that these values are at baseline we did give you your transplant medications and your Eliquis here in the emergency department. Your chest x-ray was also unremarkable. Follow-up with your doctor in 2 days. Please return to the emergency department if your symptoms get worse or if you develop any symptoms that are concerning to you. Prescriptions: No Action pantoprazole 20 mg tablet,delayed release (DR/EC) 1 tab PO DAILY 0RF amlodipine 10 mg tablet 1 tab PO DAILY 0RF calcitriol 0.5 mcg capsule 1 cap PO DAILY 0RF docusate sodium 100 mg capsule 1 cap PO BID 0RF Eliquis 5 mg tablet 1 tab PO BID 0RF Breo Ellipta 100-25 mcg/dose blister with device 1 puff inhalation DAILY 0RF mycophenolate mofetil [CellCept] 250 mg capsule 500 mg PO BID 0RF ferrous sulfate [Feosol] 325 mg (65 mg iron) tablet 325 mg PO Q OTHER DAY 0RF folic acid 1 mg tablet 1 mg PO DAILY 0RF prednisone 5 mg tablet 5 mg PO DAILY 0RF sennosides [senna] 8.6 mg tablet 8.6 mg PO BID 0RF acetaminophen 650 mg tablet extended release 650 mg PO Q12H 30 Days Qty: 60 0RF tacrolimus 1 mg capsule 3 mg PO Q12H 0RF tacrolimus 5 mg capsule 10 mg PO Q12H 0RF Nexplanon 68 mg implant subdermal 0RF sodium bicarbonate 650 mg tablet 1,300 mg PO TID PRN0RF famotidine 20 mg tablet PO DAILY 0RF Miconazole-3 200 mg suppository vaginal 0RF albuterol sulfate [Ventolin HFA] 90 mcg/actuation HFA aerosol inhaler inhalation 0RF
[2021-08-02 18:16] VITALS: PULSE 77; RESP 13
[2021-08-02] MEDS: HYDROmorphone HCl 2 MG/ML VIAL IM (18:17)
[2021-08-02] MEDS: diphenhydrAMINE HCL 50 MG/ML VIAL IM (18:17)
[2021-08-02 18:20] VITALS: BP 144/72
[2021-08-02 19:58] VITALS: BP 131/64; PULSE 76; RESP 22; O2SAT 96
[2021-08-02 20:03] LABS: Troponin-I High Sensitivity 5.6 ng/L (<3.5-17.0)
[2021-08-02] MEDS: mycophenolate mofetiL 250 MG CAPSULE 500 MG PO (20:34)
[2021-08-02] MEDS: Tacrolimus 1 MG CAPSULE 13 MG PO (20:34)
[2021-08-02] MEDS: Apixaban 5 MG TABLET PO (20:34)
== END 2021-08-02 21:06 | disposition home or self-care (01) ==
PROVIDERS: Emergency Provider Emergency Medicine Emergency Medical Services; PCP Physician Assistant
DX: R07.89 Other chest pain (principal); R00.2 Palpitations; N18.9 Chronic kidney disease, unspecified; Z86.711 Personal history of pulmonary embolism; Z79.01 Long term (current) use of anticoagulants; Z94.0 Kidney transplant status
CPT/HCPCS: 36415; 71046; 80053; 84484; 85025; 93005; 96372; 99284; J1170; J1200; Q0163

== ENCOUNTER 2021-08-19 14:35 | Emergency (ER) | payer MEDICARE, MEDICAID, SELFPAY ==
--- NOTE | ~2021-08-19 | CT_ITS ---
EXAMINATION: CT ABDOMEN AND PELVIS WITHOUT CONTRAST CLINICAL INFORMATION: Abdominal pain COMPARISON: 07/23/2018 TECHNIQUE: Multidetector volumetric imaging was performed from the superior aspect of the liver through the pubic symphysis. Sagittal and coronal reformatted images were obtained on the technologist's workstation. This CT examination was performed using dose optimization techniques as appropriate, variously including the following: *Automated exposure control *Adjustment of mA and/or kV according to patient size (this includes techniques or standardized protocols for targeted exams where dose is matched to indication/reason for exam; i.e. extremities or head) *Use of iterative reconstruction technique DLP: 1088 mGy-cm FINDINGS: LUNG BASES: Curvilinear atelectasis/scarring noted in the right lower lobe. LIVER, GALLBLADDER, AND BILIARY TREE: The liver is normal in size, shape, and attenuation. No focal hepatic lesion or biliary ductal dilatation is present. The gallbladder appears partially contracted. PANCREAS: Unremarkable. SPLEEN: Unremarkable. ADRENAL GLANDS: Unremarkable. KIDNEYS AND URETERS: The [place] kidneys are atrophic without hydronephrosis. Tiny right lower pole renal calculus. There is a right lower quadrant transplant kidney with perinephric stranding and no significant hydronephrosis. BLADDER: Unremarkable. GASTROINTESTINAL TRACT: No evidence of bowel obstruction or significant wall thickening. The appendix is unremarkable. No free fluid or free air is seen. ABDOMINAL WALL: No significant hernia is appreciated. LYMPH NODES: No lymphadenopathy is seen, though assessment is limited in the absence of intravenous contrast. VASCULAR: Scattered vascular calcifications are present. Infrarenal IVC filter is noted. PELVIC VISCERA: There is a lobulated, enlarged appearance of the uterine fundus suggesting underlying fibroids. OSSEOUS STRUCTURES: Sclerotic appearance of the bones favors renal osteodystrophy. There is degenerative change at L5-S1. CT/CT abdomen pelvis wo con IMPRESSION: 1. Right lower quadrant transplant kidney demonstrates nonspecific perinephric stranding, without significant hydronephrosis. 2. Lobulated, enlarged appearance of the uterine fundus suggesting underlying fibroids, which could be further assessed with pelvic ultrasound.
[2021-08-19 15:17] VITALS: BP 153/72; PULSE 87; RESP 18; TEMP 37; O2SAT 97; BMI 41.9
[2021-08-19 22:39] VITALS: BP 156/59; PULSE 86; RESP 17; TEMP 36.9; O2SAT 100
[2021-08-19 23:21] LABS: MANUAL DIFF FLAG NO
[2021-08-19 23:22] LABS: Basophils Percent Auto 0.3 % (0-2); Eosinophils Absolute Auto 0.2 X10*3/uL (0.0-0.4); Eosinophils Percent Auto 1.2 % (0-4); Hematocrit 30.5 % (37.0-47.0); Hemoglobin 9.1 g/dl (12.0-16.0); Imm Gran Abs Auto 0.12 X10*3/uL (0.00-0.03); Imm Gran Pct Auto 0.8 % (0.0-0.4); Lymphocytes Percent Auto 7.2 % (20-40); Mean Corpuscular HGB Conc 29.8 g/dl (31.0-35.0); Mean Corpuscular Hemoglobin 24.5 pg (27.0-33.0); Mean Platelet Volume 10.3 fL (9.4-12.3); Monocytes Percent Auto 7.1 % (2-11); Neutrophils Absolute Auto 11.8 x10*3/uL (2.0-8.3); Neutrophils Percent Auto 83.4 % (45-73); Platelet Count 344 X10*3/uL (160-400); Red Blood Count 3.72 X10*6/uL (4.20-5.50); Red Cell Distribution Width 19.3 % (11.0-16.0); White Blood Count 14.2 X10*3/uL (4.8-10.8)
[2021-08-19 23:23] LABS: Appearance Urine CLOUDY; Color Urine RED; Glucose Urine UA >=1000 MG/DL (NEG); Leukocyte Esterase Urine NEG (NEG); Nitrite Urine NEG (NEG); PH 5.5 (5.0-8.0); Specific Gravity - Urine 1.015 (1.005-1.025); UACC Culture Trigger NO; Urine Blood 3+ (NEG); Urine Ketones 5 MG/DL (NEG); Urine Protein 1+ MG/DL (NEG-TRACE)
[2021-08-19 23:31] LABS: Bacteria Urine TRACE /LPF; WBC Urine 0 /HPF (0-4)
--- NOTE | 2021-08-19 23:48 | ED_ITS ---
HPI - Female Genitourinary General Chief complaint: Vaginal Bleeding Stated complaint: Vaginal bleeding 31x days sent by pcp Time Seen by Provider: 08/19/21 16:49 Source: patient Mode of arrival: ambulatory Limitations: no limitations History of Present Illness HPI Narrative: This is a 45-year-old female CKD s/p renal transplant in 2020 ( on tacrolimus and prednisone), obesity, right lumbar radiculopathy, ankalosing spondylitis presenting to the emergency department with complaints of vaginal bleeding times 31 days. Patient tells me that she is currently passing some bright red clots, and heavily bleeding she reports bleeding through 5-10 pads per hour. Patient tells me that she has been seen by her OBGYN which tells her that she is likely bleeding secondary to fibroids, patient is on Eliquis. Patient is on Eliquis because she had a kidney transplant in September 2020. She tells me that she is having some abdominal cramping however she denies weakness, dizziness, chest pain, shortness of breath, fevers, chills, pelvic pain She tells me she had blood work done at [facility] recently on 08/15 where her hemoglobin was 10.2. Patient tells me she last took Eliquis around 20:00 today. MD elicited complaint: vaginal bleeding Severity: moderate Quality of pain: cramping Consistency: constant Vaginal discharge: none Vaginal bleeding: none Exacerbating factors: none Relieving factors: none Associated symptoms: denies other symptoms Treatment prior to arrival: none Related Data Home Medications Medication Instructions Recorded Confirmed amlodipine 10 mg tablet 1 tab PO DAILY 11/30/20 08/19/21 apixaban 5 mg tablet (Eliquis) 1 tab PO BID 11/30/20 08/19/21 calcitriol 0.5 mcg capsule 1 cap PO DAILY 11/30/20 08/19/21 docusate sodium 100 mg capsule 1 cap PO BID 11/30/20 08/19/21 fluticasone furoate 100 1 puff INHALATION DAILY 11/30/20 08/19/21 mcg-vilanterol 25 mcg/dose inhalation powder (Breo Ellipta) pantoprazole 20 mg tablet,delayed 1 tab PO DAILY 11/30/20 08/19/21 release ferrous sulfate 325 mg (65 mg 325 mg PO Q OTHER DAY tab 12/19/20 08/19/21 iron) tablet (Feosol) folic acid 1 mg tablet 1 mg PO DAILY 12/19/20 08/19/21 mycophenolate mofetil 250 mg 500 mg PO BID 12/19/20 08/19/21 capsule (CellCept) prednisone 5 mg tablet 5 mg PO DAILY 12/19/20 08/19/21 sennosides 8.6 mg tablet (senna) 8.6 mg PO BID 12/19/20 08/19/21 etonogestrel 68 mg subdermal SUBDERMAL 06/18/21 08/19/21 implant (Nexplanon) sodium bicarbonate 650 mg tablet 1,300 mg PO TID PRN tab 06/18/21 08/19/21 albuterol sulfate 90 mcg/actuation INHALATION 07/30/21 08/19/21 aerosol inhaler (Ventolin HFA) famotidine 20 mg tablet mg PO DAILY tab 07/30/21 08/19/21 miconazole nitrate 200 mg vaginal mg VAGINAL 07/30/21 08/19/21 suppository (Miconazole-3) tacrolimus 1 mg capsule, 3 mg PO Q12H cap 07/30/21 08/19/21 immediate-release tacrolimus 5 mg capsule, 10 mg PO Q12H cap 07/30/21 08/19/21 immediate-release Previous Rx's Medication Instructions Recorded acetaminophen 650 mg 650 mg PO Q12H 30 Days #60 tab 12/19/20 tablet,extended release Allergies Allergy/AdvReac Type Severity Reaction Status Date / Time Cefazolin Sodium Allergy Unknown unknown Verified 08/19/21 15:17 codeine Allergy Unknown unknown Verified 08/19/21 15:17 hydrocodone [From VICODIN] Allergy Unknown UNKNOWN Verified 08/19/21 15:17 lisinopril [LISINOPRIL] Allergy Unknown EYES SWELL Verified 08/19/21 15:17 SHUT, angioedema, angioedema Motrin Allergy Unknown unknown Verified 08/19/21 15:17 piperacillin [Zosyn] Allergy Unknown rash Verified 08/19/21 15:17 shellfish Allergy Unknown unknown Verified 08/19/21 15:17 Sulfa (Sulfonamide Allergy Unknown UNKNOWN Verified 08/19/21 15:17 Antibiotics) [SULFA (SULFONAMIDE ANTIBIOTICS)] tramadol [TRAMADOL] Allergy Unknown HIVES Verified 08/19/21 15:17 vancomycin Allergy Unknown rash Verified 08/19/21 15:17 azithromycin AdvReac Unknown dizziness/A Verified 08/19/21 15:17 KI Review of Systems Review of Systems: Constitutional : No Weight loss, No Fever, No Chills, No Fatigue, No Malaise ENT/Mouth : No sore throat, No Rhinorrhea Eyes: No Eye Pain, No Swelling, No Redness Cardiovascular : No Chest Pain, No SOB, No Dyspnea on Exertion, No Orthopnea, No Edema, No Palpitations Respiratory : No Cough, No Sputum, No Wheezing Gastrointestinal : No Nausea, No Vomiting, No Diarrhea, No Constipation, No abdominal Pain, No Hematochezia, No Melena Genitourinary : No Dysuria, No Urinary Frequency, No Hematuria + vaginal bleeding Musculoskeletal : No joint pain, No Myalgias, No Joint Swelling Skin : No Skin Lesions, No rash Neuro : No Weakness, No Numbness, No Dizziness, No Headache Psych : No Anxiety/Panic, No Depression All other systems reviewed and are negative Yes all other systems are reviewed and are negative [facility] Past Medical History Attestation statement: The following information was validated with the patient. Source: old records reviewed and nursing notes reviewed Medical History Ankylosing spondylitis of lumbar region Chronic kidney disease History of pulmonary embolism Right lumbar radiculopathy Surgical History Hx of bilateral breast reduction surgery S/P kidney transplant Status post dialysis Family History Family History Mother No problems noted. Father No problems noted. Social History Social History Housing: Apartment Alcohol intake: never Patient Tobacco Use Status: Former Tobacco user Cigarettes Per Day: 1 Years Smoked: 15 e-Cigarette/Vaping Use: Never Used Second Hand Smoke Exposure: No Advance Directives: No Advance Directives Information Provided: No Advance Directives Date on File: 02/26/20 service: No Current occupational status: disabled Gender identity: Female Cognitive needs: No Hearing needs: No Vision needs: Yes (Glasses) Physical Exam Vital Signs: Vital Signs: Last Vital Signs Temp 98.5 F 08/20/21 02:03 Pulse 84 08/20/21 02:03 Resp 16 08/20/21 00:58 BP 146/45 H 08/20/21 02:03 Pulse Ox 99 08/20/21 02:03 BMI result Body Mass Index 41.9 Vital signs stable Appearance: Alert.? Oriented X3.? No acute distress.? Head: Normocephalic, atraumatic, no step-offs or deformities Eyes: Pupils equal, round and reactive to light.? ENT: Pharynx normal.? Neck: Normal inspection.? Neck supple.? CVS: Normal heart rate and rhythm.? Pulses normal.? Respiratory: No respiratory distress.? Breath sounds normal.? Abdomen: Soft and + diffusely tender abdomen.? Skin: Skin warm and dry.? Normal skin color.? Normal skin turgor.? Extremities: No lower extremity edema.? No calf ttp. 5/5 strength to bilateral upper and lower extremities. + bilateral fistula stopper extremities. Back: No midline tenderness, no C-spine tenderness, full range of motion, no CVA tenderness bilaterally Neuro: Oriented X 3.? No motor deficit.? No sensory deficit. CN 2-12 intact Course Reevaluation(s) Reevaluation #1: Patient with an elevated leukocytosis, slight anemia will repeat H&H at 03:00, urine negative for infection + glucose. chemistry and coags pending as patient is a very difficult stick. Laboratory has been called to obtain these values. CT of the abdomen and pelvis pending. Discussed this case w/ Dr. Benson patient is a high risk patient we do not have OBGYN coverage at this time will discuss this with [facility] and likely transfer patient as indicated Patient reports that she has changed her pad 3 times in the past hour. Time: 02:35 Reevaluation #2: 4-5 nurses have tried starting access on this patient with no success. Ult rasound-guided was tried by myself and a few nurses again no luck. She has a small 20 gauge IV in her left hand. She is complaining of abdominal cramping and pain, giving her Dilaudid for pain control. I tried transferring patient to [facility] which was close to transfers I also tried calling [facility] which were also closed for transfers. [facility] accepted patient Dr. Martinez ED-ED This patient is actively bleeding, very tough stick, we do not have OBGYN coverage and no Hematology-Oncology for consult. Patient will be transferred to obtain a higher level of care. I did speak to patient about us trying to transfer her to a local hospitals however due to the current situation a most hospitals are closed to transfers. She agrees to go to [facility]. Time: 03:46 MDM - Female Genitourinary MDM Narrative Medical decision making narrative: 2315 45-year-old female presents with heavy vaginal bleeding times 31 days. Patient is on Eliquis. Status post kidney transplant in September 2020. Has been seen by OBGYN yesterday which tells her that she is bleeding secondary to fibroids and due to Eliquis. Physical examination with a diffusely tender abdomen. Plan at this time obtain basic lab work, urine. Medical Records Attestation: I reviewed the patient's medical records. Lab Data Attestation: I reviewed the patient's lab results. Result diagrams: 08/19/21 23:16 Labs: Lab Results 08/19/21 08/19/21 08/20/21 Range/Units 23:16 23:16 02:41 WBC 14.2 H (4.8-10.8) X10*3/uL RBC 3.72 L (4.20-5.50) X10*6/uL Hgb 9.1 L (12.0-16.0) g/dl Hct 30.5 L (37.0-47.0) % MCV 82.0 (80.0-98.0) fL MCH 24.5 L (27.0-33.0) pg MCHC 29.8 L (31.0-35.0) g/dl RDW 19.3 H (11.0-16.0) % Plt Count 344 (160-400) X10*3/uL MPV 10.3 (9.4-12.3) fL Immature Gran % (Auto) 0.8 H (0.0-0.4) % Neut % (Auto) 83.4 H (45-73) % Lymph % (Auto) 7.2 L (20-40) % [place] % (Auto) 7.1 (2-11) % Eos % (Auto) 1.2 (0-4) % Baso % (Auto) 0.3 (0-2) % Lymph # (Auto) 1.0 L (1.2-4.9) X10*3/uL [place] # (Auto) 1.0 (0.1-1.2) X10*3/uL Eos # (Auto) 0.2 (0.0-0.4) X10*3/uL Baso # (Auto) 0.0 (0.0-0.2) X10*3/uL Abs Immat Gran (auto) 0.12 H (0.00-0.03) X10*3/uL Absolute Neuts (auto) 11.8 H (2.0-8.3) x10*3/uL Absolute Nucleated RBC 0.000 (0.0-0.012) X10*3/uL Nucleated RBC % (auto) 0.0 (0.0-0.2) /100WBC POC Glucose 304 H (60-115) mg/dL Urine Color RED A Urine Appearance CLOUDY Urine pH 5.5 (5.0-8.0) Ur Specific [place] 1.015 (1.005-1.025) Urine Protein 1+ H (NEG-TRACE) MG/DL Urine Glucose (UA) >=1000 H (NEG) MG/DL Urine Ketones 5 (NEG) MG/DL Urine Blood 3+ H (NEG) Urine Nitrite NEG (NEG) Ur Leukocyte Esterase NEG (NEG) Urine RBC 76-150 H (0) /HPF Urine WBC 0 (0-4) /HPF Ur Squamous Epith Cells NONE /LPF Urine Bacteria TRACE /LPF Critical Care Time Critical Care Time Critical Care Time: Yes Total Critical Care Time: 120 Attestation: I attest to this time spent taking care of the patient, obtaining history, physical, reviewing labs, imaging, speaking to my attending, speaking to multiple facilities for transfer. Discharge Plan Discharge Clinical Impression: Vaginal bleeding, Fibroid, Dysfunctional uterine bleeding, Abdominal pain, Anemia Patient Disposition: Home, Self-Care Instructions: Menorrhagia (ED) Additional Instructions: [facility]. MARTINEZ Prescriptions: No Action pantoprazole 20 mg tablet,delayed release (DR/EC) 1 tab PO DAILY 0RF amlodipine 10 mg tablet 1 tab PO DAILY 0RF calcitriol 0.5 mcg capsule 1 cap PO DAILY 0RF docusate sodium 100 mg capsule 1 cap PO BID 0RF Eliquis 5 mg tablet 1 tab PO BID 0RF Breo Ellipta 100-25 mcg/dose blister with device 1 puff inhalation DAILY 0RF mycophenolate mofetil [CellCept] 250 mg capsule 500 mg PO BID 0RF ferrous sulfate [Feosol] 325 mg (65 mg iron) tablet 325 mg PO Q OTHER DAY 0RF folic acid 1 mg tablet 1 mg PO DAILY 0RF prednisone 5 mg tablet 5 mg PO DAILY 0RF sennosides [senna] 8.6 mg tablet 8.6 mg PO BID 0RF acetaminophen 650 mg tablet extended release 650 mg PO Q12H 30 Days Qty: 60 0RF tacrolimus 1 mg capsule 3 mg PO Q12H 0RF tacrolimus 5 mg capsule 10 mg PO Q12H 0RF Nexplanon 68 mg implant subdermal 0RF sodium bicarbonate 650 mg tablet 1,300 mg PO TID PRN0RF famotidine 20 mg tablet PO DAILY 0RF Miconazole-3 200 mg suppository vaginal 0RF albuterol sulfate [Ventolin HFA] 90 mcg/actuation HFA aerosol inhaler inhalation 0RF Referrals: Alexx Baum PA-C [Primary Care Provider] - 1 day
[2021-08-20 00:15] VITALS: RESP 18
[2021-08-20] MEDS: HYDROmorphone HCl 0.5 MG/0.5 ML SYRINGE IVPUSH ×2 (00:15→00:58)
[2021-08-20 00:58] VITALS: RESP 16
[2021-08-20 02:03] VITALS: BP 146/45; PULSE 84; TEMP 36.9; O2SAT 99
[2021-08-20 02:45] LABS: Glucose, Whole Blood 304 mg/dL (60-115)
--- NOTE | 2021-08-20 02:52 | PC.NURSE ---
call out to [facility] transfer line @[phone]
--- NOTE | 2021-08-20 02:54 | PC.NURSE ---
[facility] transfer line called back @[phone] to report they are not accepting any STRATE[employer] ADVISOR transfers at the moment
--- NOTE | 2021-08-20 03:03 | PC.NURSE ---
Call out to [facility] spoke to Divina in the Hub @ 0301 regarding transfer of patient
--- NOTE | 2021-08-20 03:09 | PC.NURSE ---
call out to [facility] Transfer line @0307. Gave demographics to Qi
--- NOTE | 2021-08-20 03:28 | PC.NURSE ---
call out to [facility] transfer line @0324
[2021-08-20 03:42] VITALS: RESP 18
[2021-08-20] MEDS: HYDROmorphone HCl 1 MG/ML SYRINGE IVPUSH (03:42)
--- NOTE | 2021-08-20 03:56 | PC.NURSE ---
Multiple attempts made to obtain IV access and draw labs by this nurse and Dee FAJARDO. US guided IV insertion was unsuccessful. Attending physician made aware of situation.
[2021-08-20 04:01] LABS: COVID-19 Test Negative (Negative)
[2021-08-20 04:10] VITALS: BP 123/59; PULSE 92; RESP 18; O2SAT 97
--- NOTE | 2021-08-20 05:40 | PC.NURSE ---
This RN attempted to call [facility] to give nurse to nurse. Waited on hold for 25 minutes with no response.
== END 2021-08-20 05:41 | disposition home or self-care (01) ==
PROVIDERS: Physician Assistant; Student in an Organized Health Care Education/Training Program; Emergency Provider Internal Medicine; PCP Physician Assistant
DX: D25.9 Leiomyoma of uterus, unspecified (principal); N93.8 Other specified abnormal uterine and vaginal bleeding; D64.9 Anemia, unspecified; Z20.822 Contact with and (suspected) exposure to COVID-19; Z79.899 Other long term (current) drug therapy; Z87.891 Personal history of nicotine dependence; Z79.01 Long term (current) use of anticoagulants
CPT/HCPCS: 36415; 74176; 81001; 82947; 85025; 87635; 96374; 96375; 96376; 99284; 99291; 99292; J1170; J1200

== ENCOUNTER → 2021-08-22 09:34 | Outpatient (BNV) | payer MEDICARE, MEDICAID, SELFPAY | PROVIDERS: PCP Nurse Practitioner Family; Referring Provider Nurse Practitioner Family; Visit Provider Internal Medicine Medical Oncology | DX: D50.0 Iron deficiency anemia secondary to blood loss (chronic) (principal); N92.0 Excessive and frequent menstruation with regular cycle; Z86.711 Personal history of pulmonary embolism; Z79.01 Long term (current) use of anticoagulants | CPT/HCPCS: 99204; 99213 ==

== ENCOUNTER 2021-09-04 09:59 | Outpatient (REF) | payer MEDICARE, MEDICAID, SELFPAY | END 2021-09-04 10:00 | disposition home or self-care (01) | LOC: HO.MDS 09:59 | PROVIDERS: Visit Provider Internal Medicine Medical Oncology | DX: D50.9 Iron deficiency anemia, unspecified (principal); N18.6 End stage renal disease; Z94.0 Kidney transplant status | CPT/HCPCS: 96365; J1756 ==

== ENCOUNTER 2021-09-10 13:58 | Outpatient (REF) | payer MEDICARE, MEDICAID, SELFPAY | END 2021-09-10 13:59 | disposition home or self-care (01) | LOC: HO.MDS 13:58 | PROVIDERS: Visit Provider Internal Medicine Medical Oncology | DX: D50.9 Iron deficiency anemia, unspecified (principal) | CPT/HCPCS: 96365; J1756 ==

== ENCOUNTER 2021-09-26 08:24 | Outpatient (REF) | payer MEDICARE, MEDICAID, SELFPAY | END 2021-09-26 08:25 | disposition home or self-care (01) | LOC: HO.MDS 08:24 | PROVIDERS: Visit Provider Internal Medicine | DX: D50.9 Iron deficiency anemia, unspecified (principal); Z94.0 Kidney transplant status | CPT/HCPCS: 96365; 96366; J1200; J1750; Q0163 ==

== ENCOUNTER 2021-11-11 13:11 | Emergency (ER) | payer MEDICARE, MEDICAID, SELFPAY ==
--- NOTE | ~2021-11-11 | XR_ITS ---
EXAMINATION: XR CHEST CLINICAL INFORMATION: Chest pain COMPARISON: Chest x-ray 08/02/2021 TECHNIQUE: Frontal view of the chest was obtained. FINDINGS: The lungs are clear. No airspace consolidation, pleural effusion, or pneumothorax. The cardiomediastinal silhouette is within normal limits. No acute osseous injury. Left axillary vascular stent. Surgical clips project over the right axilla. XR/XR chest 1V IMPRESSION: No acute pulmonary process.
[2021-11-11 14:29] VITALS: BP 125/78; PULSE 76; RESP 18; TEMP 36.3; O2SAT 97; BMI 39.5
--- NOTE | 2021-11-11 14:33 | ECG_ITS ---
Test Reason : cp Blood Pressure : / mmHG Vent. Rate : 073 BPM Atrial Rate : 073 BPM P-R Int : 156 ms QRS Dur : 084 ms QT Int : 402 ms P-R-T Axes : 041 004 037 degrees QTc Int : 442 ms Normal sinus rhythm Normal ECG When compared with ECG of 02-AUG-2021 15:37, No significant change was found Referred By: Generic ED Physician Electronically Signed By:JAYASHREE SOTO
[2021-11-11 15:33] LABS: MANUAL DIFF FLAG NO
[2021-11-11 15:41] LABS: Basophils Percent Auto 0.3 % (0-2); Eosinophils Absolute Auto 0.1 X10*3/uL (0.0-0.4); Eosinophils Percent Auto 1.8 % (0-4); Hematocrit 40.8 % (37.0-47.0); Hemoglobin 12.2 g/dl (12.0-16.0); Imm Gran Abs Auto 0.03 X10*3/uL (0.00-0.03); Imm Gran Pct Auto 0.4 % (0.0-0.4); Lymphocytes Absolute Auto 0.6 X10*3/uL (1.2-4.9); Lymphocytes Percent Auto 8.5 % (20-40); Mean Corpuscular HGB Conc 29.9 g/dl (31.0-35.0); Mean Corpuscular Hemoglobin 24.3 pg (27.0-33.0); Mean Corpuscular Volume 81.3 fL (80.0-98.0); Mean Platelet Volume 10.8 fL (9.4-12.3); Monocytes Absolute Auto 0.6 X10*3/uL (0.1-1.2); Monocytes Percent Auto 8.2 % (2-11); Neutrophils Absolute Auto 5.9 x10*3/uL (2.0-8.3); Neutrophils Percent Auto 80.8 % (45-73); Platelet Count 262 X10*3/uL (160-400); Red Blood Count 5.02 X10*6/uL (4.20-5.50); Red Cell Distribution Width 18.1 % (11.0-16.0); White Blood Count 7.3 X10*3/uL (4.8-10.8)
[2021-11-11 15:54] LABS: Anion Gap 12 (12-20); Blood Urea Nitrogen 21 mg/dL (9-16); Calcium 9.4 mg/dL (8.4-10.2); Carbon Dioxide 21 mmol/L (22-29); Chloride 108 mmol/L (96-108); Creatinine Clr Calc Pharmacy 54.3; Estimated Glomerular Filt Rate 34; Glucose Random 146 mg/dL (60-115); Potassium 4.3 mmol/L (3.3-5.1); Sodium 137 mmol/L (135-145)
[2021-11-11] MEDS: Tacrolimus 1 MG CAPSULE 12 MG PO (20:14)
--- NOTE | 2021-11-11 20:15 | PC.NURSE ---
pt takes 500 mg mycophenolate daily. additional 250mg cap ordered to correct this dose.
[2021-11-11] MEDS: mycophenolate mofetiL 250 MG CAPSULE PO ×2 (20:16→20:21)
[2021-11-11] MEDS: Apixaban 2.5 MG TABLET PO (20:16)
--- NOTE | 2021-11-11 21:06 | ED.GENADULT ---
HPI - General Adult General Chief complaint: General Medical Stated complaint: Trouble swallowing/CP/Sore throat/Wheezing Time Seen by Provider: 11/11/21 18:46 Source: patient History of Present Illness HPI narrative: Patient with multiple comorbid conditions status post kidney transplant complaining of sore throat dry cough for last few days complaining that never smokes in the bathroom and the smoke from the bathroom comes to her apartment that making her sick no fever no chills no chest pain Related Data Home Medications Medication Instructions Recorded Confirmed amlodipine 10 mg tablet 1 tab PO DAILY 11/30/20 09/22/21 apixaban 5 mg tablet (Eliquis) 1 tab PO BID 11/30/20 09/22/21 calcitriol 0.5 mcg capsule 1 cap PO DAILY 11/30/20 09/22/21 docusate sodium 100 mg capsule 1 cap PO BID 11/30/20 09/22/21 (Dulcolax Stool Softener (docusate)) fluticasone furoate 100 1 puff inhalation DAILY 11/30/20 09/22/21 mcg-vilanterol 25 mcg/dose inhalation powder (Breo Ellipta) pantoprazole 20 mg tablet,delayed 1 tab PO DAILY 11/30/20 09/22/21 release ferrous sulfate 325 mg (65 mg 325 mg PO Q OTHER DAY 12/19/20 09/22/21 iron) tablet (Feosol) folic acid 1 mg tablet 1 mg PO DAILY 12/19/20 09/22/21 mycophenolate mofetil 250 mg 500 mg PO BID 12/19/20 09/22/21 capsule (CellCept) prednisone 5 mg tablet 5 mg PO DAILY 12/19/20 09/22/21 sennosides 8.6 mg tablet (senna) 8.6 mg PO BID 12/19/20 09/22/21 etonogestrel 68 mg subdermal 68 mg subdermal DAILY 06/18/21 09/22/21 implant (Nexplanon) sodium bicarbonate 650 mg tablet 1,300 mg PO TID PRN Acid Reflux 06/18/21 09/22/21 albuterol sulfate 90 mcg/actuation 90 mcg inhalation DAILY 07/30/21 09/22/21 aerosol inhaler (Ventolin HFA) famotidine 20 mg tablet (Pepcid) 20 mg PO DAILY 07/30/21 09/22/21 tacrolimus 1 mg capsule, 3 mg PO Q12H 07/30/21 09/22/21 immediate-release tacrolimus 5 mg capsule, 10 mg PO Q12H 07/30/21 09/22/21 immediate-release Previous Rx's Medication Instructions Recorded acetaminophen 650 mg 650 mg PO Q12H 30 days #60 tabs 12/19/20 tablet,extended release apixaban 2.5 mg tablet (Eliquis) 2.5 mg PO BID #60 tabs 08/22/21 benzonatate 200 mg capsule 200 mg PO TID PRN cough #20 caps 11/11/21 Allergies Allergy/AdvReac Type Severity Reaction Status Date / Time Cefazolin Sodium Allergy Unknown unknown Verified 11/11/21 14:28 hydrocodone [From VICODIN] Allergy Unknown UNKNOWN Verified 11/11/21 14:28 lisinopril [LISINOPRIL] Allergy Unknown EYES SWELL Verified 11/11/21 14:28 SHUT, angioedema, angioedema Motrin Allergy Unknown unknown Verified 11/11/21 14:28 piperacillin [Zosyn] Allergy Unknown rash Verified 11/11/21 14:28 shellfish Allergy Unknown unknown Verified 11/11/21 14:28 Sulfa (Sulfonamide Allergy Unknown UNKNOWN Verified 11/11/21 14:28 Antibiotics) [SULFA (SULFONAMIDE ANTIBIOTICS)] tramadol [TRAMADOL] Allergy Unknown HIVES Verified 11/11/21 14:28 vancomycin Allergy Unknown rash Verified 11/11/21 14:28 azithromycin AdvReac Unknown dizziness/A Verified 11/11/21 14:28 Review of Systems Review of Systems: Yes all other systems are reviewed and are negative [facility] Past Medical History Medical History Ankylosing spondylitis of lumbar region Chronic kidney disease History of pulmonary embolism Right lumbar radiculopathy Surgical History Hx of bilateral breast reduction surgery S/P kidney transplant Status post dialysis Family History Family History Mother No problems noted. Father No problems noted. Social History Social History Household Members: None Housing: Apartment Are you a primary child care nurse to a significant other at home: No Do you presently have visiting nurse or other home services: No Alcohol intake: never Patient Tobacco Use Status: Former Tobacco user Years Smoked: 15 e-Cigarette/Vaping Use: Never Used Second Hand Smoke Exposure: No Advance Directives: No Advance Directives Information Provided: No Advance Directives Date on File: 02/26/20 service: No Current occupational status: disabled Gender identity: Female Cognitive needs: No Hearing needs: No Vision needs: Yes (Glasses) Physical Exam ED Vital Signs: Vital Signs - 24 hr 11/11/21 14:29 11/11/21 22:00 11/11/21 22:30 Temperature 97.4 F Pulse Rate 76 77 Respiratory Rate 18 16 18 Blood Pressure 125/78 142/91 H Pulse Oximetry 97 98 Oxygen Delivery Method Room Air Room Air BMI result Body Mass Index 39.5 Appearance: Alert. Oriented X3. No acute distress. Eyes: No pallor icterus ENT: Normal oropharynx Oral Mucosa moist tonsils are normal no exudate Neck: Normal inspection. Neck supple. Upper cervical LN + CVS: Normal heart rate and rhythm. Pulses normal. Respiratory: No respiratory distress. Equal air entry bilateral, no wheezing/rales/rhonchi Abdomen: Soft and nontender. Bowel sounds are present, no mass palpable, no CVA tenderness Skin: Skin warm and dry. Normal skin color. Normal skin turgor. Extremities: No lower extremity edema. No calf tenderness Neuro: Oriented X 3. No motor deficit. Medical Decision Making MDM Narrative Medical decision making narrative: Patient with mild pharyngitis strep is negative WBC count normal no exudates were seen patient asking for Dilaudid IM for the pain. Clinically patient has a viral bronchitis/pharyngitis. Will discharge patient home on Tessalon Lab Data Lab results reviewed: Yes I reviewed the patient's lab results. Result diagrams: 11/11/21 15:29 11/11/21 15:29 Labs: Lab Results 11/11/21 11/11/21 11/11/21 Range/Units 15:29 15:29 15:29 WBC 7.3 (4.8-10.8) X10*3/uL RBC 5.02 D (4.20-5.50) X10*6/uL Hgb 12.2 D (12.0-16.0) g/dl Hct 40.8 D (37.0-47.0) % MCV 81.3 (80.0-98.0) fL MCH 24.3 L (27.0-33.0) pg MCHC 29.9 L (31.0-35.0) g/dl RDW 18.1 H (11.0-16.0) % Plt Count 262 (160-400) X10*3/uL MPV 10.8 (9.4-12.3) fL Immature Gran % (Auto) 0.4 (0.0-0.4) % Neut % (Auto) 80.8 H (45-73) % Lymph % (Auto) 8.5 L (20-40) % [place] % (Auto) 8.2 (2-11) % Eos % (Auto) 1.8 (0-4) % Baso % (Auto) 0.3 (0-2) % Lymph # (Auto) 0.6 L (1.2-4.9) X10*3/uL [place] # (Auto) 0.6 (0.1-1.2) X10*3/uL Eos # (Auto) 0.1 (0.0-0.4) X10*3/uL Baso # (Auto) 0.0 (0.0-0.2) X10*3/uL Abs Immat Gran (auto) 0.03 (0.00-0.03) X10*3/uL Absolute Neuts (auto) 5.9 (2.0-8.3) x10*3/uL Absolute Nucleated RBC 0.000 (0.0-0.012) X10*3/uL Nucleated RBC % (auto) 0.0 (0.0-0.2) /100WBC Sodium 137 (135-145) mmol/L Potassium 4.3 (3.3-5.1) mmol/L Chloride 108 (96-108) mmol/L Carbon Dioxide 21 L (22-29) mmol/L Anion Gap 12 (12-20) BUN 21 H (9-16) mg/dL Creatinine 1.65 H (0.5-1.4) mg/dL Estim Creat Clear Calc 54.3 Estimated GFR 34 Random Glucose 146 H (60-115) mg/dL Calcium 9.4 (8.4-10.2) mg/dL Troponin I High Sens 6.0 (<3.5-17.0) ng/L COVID-19 (JEFF) (Negative) COVID-19 Clin Com S. pyogenes GrpA KALLIE (Negative) 11/11/21 11/11/21 Range/Units 22:15 22:15 WBC (4.8-10.8) X10*3/uL RBC (4.20-5.50) X10*6/uL Hgb (12.0-16.0) g/dl Hct (37.0-47.0) % MCV (80.0-98.0) fL MCH (27.0-33.0) pg MCHC (31.0-35.0) g/dl RDW (11.0-16.0) % Plt Count (160-400) X10*3/uL MPV (9.4-12.3) fL Immature Gran % (Auto) (0.0-0.4) % Neut % (Auto) (45-73) % Lymph % (Auto) (20-40) % [place] % (Auto) (2-11) % Eos % (Auto) (0-4) % Baso % (Auto) (0-2) % Lymph # (Auto) (1.2-4.9) X10*3/uL [place] # (Auto) (0.1-1.2) X10*3/uL Eos # (Auto) (0.0-0.4) X10*3/uL Baso # (Auto) (0.0-0.2) X10*3/uL Abs Immat Gran (auto) (0.00-0.03) X10*3/uL Absolute Neuts (auto) (2.0-8.3) x10*3/uL Absolute Nucleated RBC (0.0-0.012) X10*3/uL Nucleated RBC % (auto) (0.0-0.2) /100WBC Sodium (135-145) mmol/L Potassium (3.3-5.1) mmol/L Chloride (96-108) mmol/L Carbon Dioxide (22-29) mmol/L Anion Gap (12-20) BUN (9-16) mg/dL Creatinine (0.5-1.4) mg/dL Estim Creat Clear Calc Estimated GFR Random Glucose (60-115) mg/dL Calcium (8.4-10.2) mg/dL Troponin I High Sens (<3.5-17.0) ng/L COVID-19 (JEFF) Negative (Negative) COVID-19 Clin Com See Note S. pyogenes GrpA KALLIE Negative (Negative) Discharge Plan Discharge Clinical Impression: Acute pharyngitis Patient Disposition: Home, Self-Care Instructions: Pharyngitis (ED) Additional Instructions: Take cough drops as prescribed Continue your other medications Your blood workup chest x-ray rapid strep and COVID tests are negative Prescriptions: New benzonatate 200 mg capsule 200 mg PO TID PRN (Reason: cough) Qty: 20 0RF No Action pantoprazole 20 mg tablet,delayed release (DR/EC) 1 tab PO DAILY amlodipine 10 mg tablet 1 tab PO DAILY calcitriol 0.5 mcg capsule 1 cap PO DAILY docusate sodium [Dulcolax Stool Softener (dss)] 100 mg capsule 1 cap PO BID Eliquis 5 mg tablet 1 tab PO BID Breo Ellipta 100-25 mcg/dose blister with device 1 puff inhalation DAILY Eliquis 2.5 mg Tablet 2.5 mg PO BID Qty: 60 4RF mycophenolate mofetil [CellCept] 250 mg capsule 500 mg PO BID ferrous sulfate [Feosol] 325 mg (65 mg iron) tablet 325 mg PO Q OTHER DAY folic acid 1 mg tablet 1 mg PO DAILY prednisone 5 mg tablet 5 mg PO DAILY sennosides [senna] 8.6 mg tablet 8.6 mg PO BID acetaminophen 650 mg tablet extended release 650 mg PO Q12H 30 Days Qty: 60 0RF tacrolimus 1 mg capsule 3 mg PO Q12H tacrolimus 5 mg capsule 10 mg PO Q12H Nexplanon 68 mg implant 68 mg subdermal DAILY sodium bicarbonate 650 mg tablet 1,300 mg PO TID PRN (Reason: Acid Reflux) famotidine [Pepcid] 20 mg tablet 20 mg PO DAILY albuterol sulfate [Ventolin HFA] 90 mcg/actuation HFA aerosol inhaler 90 mcg inhalation DAILY
[2021-11-11 22:00] VITALS: BP 142/91; PULSE 77; RESP 16; O2SAT 98
[2021-11-11] MEDS: guaiFEN/Codeine SF 200/20/10ML 10 ML LIQUID PO (22:04)
[2021-11-11 22:30] VITALS: RESP 18
[2021-11-11] MEDS: HYDROmorphone HCl 2 MG/ML VIAL IM (22:30)
--- NOTE | 2021-11-11 22:35 | PC.NURSE ---
pt a&ox3, vss, medicated per provider order - pt declined flexeril, per pt cannot take medication post kidney transplant, requesting Dilaudid IM - given right deltoid. throat swab and COVID test obtained.
[2021-11-11 22:40] LABS: Strep A Nucleic Acid Negative (Negative)
[2021-11-11 22:46] LABS: COVID-19 Test Negative (Negative); IDNOW Serial# 16C4AD1C
== END 2021-11-12 00:08 | disposition home or self-care (01) ==
PROVIDERS: Emergency Provider Internal Medicine; PCP Physician Assistant
DX: J02.9 Acute pharyngitis, unspecified (principal); Z20.822 Contact with and (suspected) exposure to COVID-19; E66.9 Obesity, unspecified; Z68.39 Body mass index [BMI] 39.0-39.9, adult; Z87.891 Personal history of nicotine dependence
CPT/HCPCS: 36415; 71045; 80048; 84484; 85025; 87635; 87651; 93005; 96372; 99284; J1170

== ENCOUNTER 2021-12-22 | Outpatient (REF) | payer MEDICARE, MEDICAID, SELFPAY | END 2021-12-22 00:01 | disposition home or self-care (01) | LOC: HO.LNP | PROVIDERS: Visit Provider Physician Assistant | DX: K21.00 Gastro-esophageal reflux disease with esophagitis, without bleeding (principal); Z11.0 Encounter for screening for intestinal infectious diseases | CPT/HCPCS: 87338 ==

== ENCOUNTER 2022-03-20 15:12 | Outpatient (REF) | payer MEDICARE, MEDICAID, SELFPAY ==
--- NOTE | ~2022-03-20 | MM_ITS ---
EXAMINATION: MM DIAGNOSTIC DIGITAL BREAST TOMOSYNTHESIS, BILATERAL US TARGETED BREAST, RIGHT CLINICAL INFORMATION: Lump right breast. Patient status post bilateral breast reduction surgery. The lifetime risk of breast cancer based on the Tyrer-Cuzick Model is 9.6%. COMPARISON: Mammography: 05/16/2021 and studies dating back to 04/09/2017. TECHNIQUE: Digital breast tomosynthesis is performed in both the craniocaudal and mediolateral oblique views along with computer-aided detection (CAD). Synthesized 2D images are generated from the tomosynthesis. Targeted right breast ultrasound. FINDINGS: There are scattered areas of fibroglandular density (ACR BI-RADS breast composition Category b). No new abnormal dominant mass is appreciated. There is stable architectural distortion seen bilaterally related to previous surgery. Targeted right breast ultrasound to region of patient's lump demonstrated a well-circumscribed homogeneous hyperechoic area with a small central hypoechoic structure approximately 10 o'clock position 5 cm from the nipple. There appears to be some adjacent bruising present and this has the appearance of fat necrosis. No internal vascularity is appreciated. The area is wider than it is tall. No distal sound shadowing or enhancement is identified. Patient has other regions of sebaceous cysts about the breasts. Results are discussed with the patient at time of visit. MM/MM tomosynthesis diagnostic BI IMPRESSION: Bilateral architecture distortion related to previous surgery. Palpable abnormality corresponds to an area of fat necrosis. ASSESSMENT: BI-RADS 2: Benign. RECOMMENDATION: Routine annual mammography screening due in 12 months. This patient's information was entered into a reminder system with a target due date for their next mammogram.
== END 2022-03-20 15:13 | disposition home or self-care (01) ==
LOC: HO.MAMMO 15:12
PROVIDERS: Visit Provider Physician Assistant
DX: N63.11 Unspecified lump in the right breast, upper outer quadrant (principal)
CPT/HCPCS: 76642; 77062; 77066

== ENCOUNTER 2022-05-03 16:27 | Emergency (ER) | payer MEDICARE, MEDICAID, SELFPAY ==
--- NOTE | ~2022-05-03 | XR_ITS ---
EXAMINATION: XR hand wrist LT CLINICAL INFORMATION: Reason for Exam left thumb pain. Fracture? COMPARISON: None. TECHNIQUE: 3 views left hand, scaphoid view left wrist FINDINGS: No acute fracture or dislocation. Suggestion of mild soft tissue swelling about the dorsal aspect of the thumb. The joint spaces throughout the hand and wrist are maintained. No chondrocalcinosis or erosions. XR/XR hand wrist LT IMPRESSION: No acute fracture or dislocation identified.
[2022-05-03 16:41] VITALS: BP 138/84; PULSE 84; RESP 18; TEMP 36.7; O2SAT 97; BMI 37.1
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
[2022-05-03] MEDS: Acetaminophen 325 MG TABLET 650 MG PO (19:12)
== END 2022-05-03 19:34 | disposition home or self-care (01) ==
PROVIDERS: Emergency Provider Internal Medicine
DX: M79.645 Pain in left finger(s) (principal); M25.532 Pain in left wrist
CPT/HCPCS: 73110; 73130; 99283

== ENCOUNTER 2022-05-12 08:10 | Emergency (ER) | payer MEDICARE, MEDICAID, SELFPAY ==
--- NOTE | ~2022-05-12 | CT_ITS ---
EXAMINATION: CT SHOULDER WITHOUT CONTRAST, LEFT CLINICAL INFORMATION: Left shoulder pain, weakness, and decreased range of motion following a fall. COMPARISON: None TECHNIQUE: Contiguous axial CT images of the left shoulder were obtained without contrast. Sagittal and coronal reformats were provided and reviewed. This CT examination was performed using dose optimization techniques as appropriate, variously including the following: *Automated exposure control *Adjustment of mA and/or kV according to patient size (this includes techniques or standardized protocols for targeted exams where dose is matched to indication/reason for exam; i.e. extremities or head) *Use of iterative reconstruction technique. DOSE: 485 mGycm. FINDINGS: No acute fracture or dislocation. Minimal superior subluxation of the humeral head in comparison to the glenoid. No significant joint space narrowing or marginal osteophytes. No osseous erosion. No concerning lytic or blastic osseous lesion. Partially visualized degenerative disc disease and facet arthropathy within the cervical spine. Evaluation of the rotator cuff tendons significantly limited on CT examination, however, the distal supraspinatus tendon appears attenuated with probable full-thickness partial tearing anteriorly. No significant muscle atrophy. Small glenohumeral joint effusion with fluid extending into the subacromial subdeltoid bursa, likely through the full-thickness rotator cuff tendon tear. No abnormal soft tissue mass or fluid collection. No significant axillary lymphadenopathy. The visualized left lung is clear. The visualized portion of the mediastinum is unremarkable. CT/CT shoulder LT wo IV con IMPRESSION: No acute fracture. Minimal superior subluxation humeral head. Evaluation of the rotator cuff tendons significantly limited on CT examination, however, the distal supraspinatus tendon appears attenuated with probable full-thickness partial tearing anteriorly. Small glenohumeral joint effusion with fluid extending into the subacromial subdeltoid bursa, likely through the full-thickness rotator cuff tendon tear.
[2022-05-12 08:17] VITALS: BP 167/91; PULSE 89; RESP 20; TEMP 36.7; O2SAT 98; BMI 38.7
--- NOTE | 2022-05-12 08:28 | ED_ITS ---
HPI - Extremity Injury (Upper) General Chief Complaint: Extremity Injury, Upper Stated Complaint: Fall Time Seen by Provider: 05/12/22 08:20 Source: patient Mode of arrival: ambulatory Limitations: no limitations History of Present Illness HPI narrative: Patient is a 46-year-old female who presents emergency department for evaluation of left shoulder pain. She states that last night she slipped on the ice ryan g on her left side. Has significant pain to the left shoulder, inability to range the shoulder. No pain to the left elbow or wrist, full range of motion is present. Denies numbness tingling or cold sensation to the extremity. Left lower extremity is without issue. She states that she was evaluated at [facility] last night, reportedly had an x-ray of the shoulder which did not reveal any acute injury, she was told that she would have a CT scan or MRI, but she states due to prolonged wait in the hallway she subsequently left. Was advised to follow up outpatient if she continued to have pain. She states that today the pain is persistent. She denies any head strike or loss of consciousness with this fall. Related Data Home Medications Medication Instructions Recorded Confirmed amlodipine 10 mg tablet 1 tab PO DAILY 11/30/20 04/23/22 calcitriol 0.5 mcg capsule 1 cap PO DAILY 11/30/20 04/23/22 docusate sodium 100 mg capsule 1 cap PO BID 11/30/20 04/23/22 (Dulcolax Stool Softener (docusate)) pantoprazole 20 mg tablet,delayed 1 tab PO DAILY 11/30/20 04/23/22 release ferrous sulfate 325 mg (65 mg 325 mg PO Q OTHER DAY 12/19/20 04/23/22 iron) tablet (Feosol) folic acid 1 mg tablet 1 mg PO DAILY 12/19/20 04/23/22 mycophenolate mofetil 250 mg 500 mg PO BID 12/19/20 04/23/22 capsule (CellCept) prednisone 5 mg tablet 5 mg PO DAILY 12/19/20 04/23/22 sennosides 8.6 mg tablet (senna) 8.6 mg PO BID 12/19/20 04/23/22 etonogestrel 68 mg subdermal 68 mg subdermal DAILY 06/18/21 04/23/22 implant (Nexplanon) sodium bicarbonate 650 mg tablet 1,300 mg PO TID PRN Acid Reflux 06/18/21 04/23/22 albuterol sulfate 90 mcg/actuation 90 mcg inhalation DAILY 07/30/21 04/23/22 aerosol inhaler (Ventolin HFA) famotidine 20 mg tablet (Pepcid) 20 mg PO DAILY 07/30/21 04/23/22 tacrolimus 1 mg capsule, 3 mg PO Q12H 07/30/21 04/23/22 immediate-release tacrolimus 5 mg capsule, 10 mg PO Q12H 07/30/21 04/23/22 immediate-release dulaglutide 1.5 mg/0.5 mL mg subcut 11/26/21 04/23/22 subcutaneous pen injector (TrulicCuurio) Previous Rx's Medication Instructions Recorded acetaminophen 650 mg 650 mg PO Q12H 30 days #60 tabs 12/19/20 tablet,extended release apixaban 2.5 mg tablet (Eliquis) 2.5 mg PO BID #60 tabs 12/10/21 albuterol sulfate 2.5 mg/3 mL 2.5 mg (3 mL) inhalation Q6H PRN 03/05/22 (0.083 %) solution for nebulization shortness of breath or wheezing 15 days #180 mL nebulizers (AeroEclipse II #1 ea 03/05/22 Nebulizer) oxycodone 5 mg tablet 5 mg PO Q6H PRN pain #10 tabs 05/12/22 Allergies Allergy/AdvReac Type Severity Reaction Status Date / Time Cefazolin Sodium Allergy Unknown unknown Verified 05/03/22 16:41 hydrocodone [From VICODIN] Allergy Unknown UNKNOWN Verified 05/03/22 16:41 lisinopril [LISINOPRIL] Allergy Unknown EYES SWELL Verified 05/03/22 16:41 SHUT, angioedema, angioedema Motrin Allergy Unknown unknown Verified 05/03/22 16:41 piperacillin [Zosyn] Allergy Unknown rash Verified 05/03/22 16:41 shellfish Allergy Unknown unknown Verified 05/03/22 16:41 Sulfa (Sulfonamide Allergy Unknown UNKNOWN Verified 05/03/22 16:41 Antibiotics) [SULFA (SULFONAMIDE ANTIBIOTICS)] tramadol [TRAMADOL] Allergy Unknown HIVES Verified 05/03/22 16:41 vancomycin Allergy Unknown rash Verified 05/03/22 16:41 azithromycin AdvReac Unknown dizziness/A Verified 05/03/22 16:41 KI Review of Systems Review of Systems: Musculoskeletal: Positive shoulder pain as noted in HPI Yes all other systems are reviewed and are negative [facility] Past Medical History Attestation statement: The following information was validated with the patient. Source: old records reviewed Medical History Ankylosing spondylitis of lumbar region Chronic kidney disease History of pulmonary embolism Right lumbar radiculopathy Surgical History Hx of bilateral breast reduction surgery S/P kidney transplant Status post dialysis Family History Family History Mother No problems noted. Father No problems noted. Social History Social History Household Members: None Housing: Apartment Are you a primary sub acute care nurse to a significant other at home: No Do you presently have visiting nurse or other home services: No Alcohol intake: never Patient Tobacco Use Status: Former Tobacco user Years Smoked: 15 Smoked in Last 30 Days: No e-Cigarette/Vaping Use: Never Used Second Hand Smoke Exposure: No Use of substances other than those prescribed or required for medical reasons: No Advance Directives: Yes Advance Directives Information Provided: Yes Advance Directives on File: No Advance Directives Date on File: 02/26/20 service: No Current occupational status: disabled Gender identity: Female Cognitive needs: No Hearing needs: No Vision needs: Yes (Glasses) Physical Exam Vital Signs: Vital Signs: Last Vital Signs Temp 98.1 F 05/12/22 08:17 Pulse 83 05/12/22 09:11 Resp 16 05/12/22 09:11 BP 150/77 H 05/12/22 09:11 Pulse Ox 96 05/12/22 09:11 O2 Del Method 05/12/22 09:11 BMI result Body Mass Index 38.7 Appearance: Alert.?Oriented to person, place and time. No acute distress.?Normal affect. Head: Normocephalic atraumatic Eyes: Pupils equal, round and reactive to light.? ENT: Pharynx normal.?? Neck: Normal inspection.? Neck supple.??No midline cervical spine tenderness, step-offs, deformities. CVS: Heart sounds normal. Normal heart rate and rhythm.? Pulses normal.?? Respiratory: No respiratory distress.? Lung sounds clear to auscultation bilaterally?? Abdomen: Soft and non-tender. Skin: Skin warm and dry.? Normal skin color.? Extremities: No lower extremity edema.? Left shoulder with significant decreased range of motion, diffuse tenderness upon palpation. Full range of motion present to left elbow and wrist. 2+ radial pulses present bilaterally. Neuro: Moves all extremities spontaneously. Sensation intact bilaterally. Ambulates with normal steady gait. Course Reevaluation(s) Reevaluation #1: CT of the left shoulder concerning for possible rotator cuff tendon tear. I discussed these findings with patient. She was advised to wear sling to the left arm to promote patient prevent worsening of injury, patient however declines, she states that the sling makes her pain worse. I did advise her that without immobilization of the shoulder she may worsen her condition, she verbalizes understanding of this. Patient to be discharged home with short prescription for oxycodone, additionally advised rest, ice, elevation of forearm on pillows. Advised she needs outpatient follow-up with orthopedics for further evaluation and treatment. We discussed worrisome signs and symptoms that would warrant re-evaluation in the emergency department. Time: 09:37 Medications Administered Discontinued Medications Generic Name Dose Route Start Last Admin Trade Name Eyalq PRN Reason Stop Dose Admin Acetaminophen 975 mg 05/12/22 08:38 05/12/22 08:50 Acetaminophen 325 Mg Tablet PO 05/12/22 08:39 975 mg ONCE ONE Administration Cyclobenzaprine HCl 10 mg 05/12/22 08:38 05/12/22 08:50 Cyclobenzaprine Hcl 10 Mg Tablet PO 05/12/22 08:39 10 mg ONCE ONE Administration Oxycodone HCl 5 mg 05/12/22 10:12 05/12/22 10:24 Oxycodone Hcl Immed Release 5 Mg Tablet PO 05/12/22 10:13 5 mg ONCE ONE Administration Medical Decision Making Medical Decision Making MDM Narrative: Patient is a 46-year-old female who presents emergency department for evaluation of traumatic shoulder pain. Significant decreased range of motion, in part due to pain. Extremity is neurovascularly intact distally. Distal joints without impaired AROM. Physical examination is nonfocal. She has no focal neurological deficits and denied any head strike or loss consciousness. Plan to obtain CT imaging of the left shoulder to evaluate for fracture, dislocation, versus ligamentous injury. Tylenol and cyclobenzaprine for pain.. Differential Diagnosis Differential Diagnoses: The differential diagnosis associated with the presentation includes (As noted above) Radiology Impression Discussion of test interpretation with radiology: I have reviewed the radiologist's reading. Radiologist Impression: CT/CT shoulder LT wo IV con IMPRESSION: No acute fracture. Minimal superior subluxation humeral head. ? Evaluation of the rotator cuff tendons significantly limited on CT examination, however, the distal supraspinatus tendon appears attenuated with probable full-thickness partial tearing anteriorly. ? Small glenohumeral joint effusion with fluid extending into the subacromial subdeltoid bursa, likely through the full-thickness rotator cuff tendon tear. Prescription Management I considered prescription management with: Pain Medication Discharge Plan Discharge Clinical Impression: Rotator cuff strain Qualifiers: Encounter type: initial encounter Laterality: left Qualified Code(s): S46.012A - Strain of muscle(s) and tendon(s) of the rotator cuff of left shoulder, initial encounter Patient Disposition: Home, Self-Care Instructions: Rotator Cuff Injury (ED), Rotator Cuff Tear Repair (DC), Rotator Cuff Injury Exercises (DC) Additional Instructions: As we discussed, please be sure to rest, apply ice to the area for 10-15 minutes 4-6 times daily, elevate the forearm on pillows when possible, use the sling at all times. You have been given a short prescription for oxycodone, which was sent to your pharmacy. This is a narcotic medication, it can make you drowsy and it can be addictive. Should not drive, drink alcohol, operate machinery while taking this medication. You will need to contact the orthopedic office to arrange for an outpatient follow-up appointment for further management and treatment. Additionally as you are all read the a patient of [facility] you may follow-up in their office. You may return back to emergency department any new or worsening symptoms or concerns. Prescriptions: New oxycodone 5 mg tablet 5 mg PO Q6H PRN (Reason: pain) Qty: 10 0RF Rx Instructions: Partial Fill upon patient request. No Action (DME) nebulizers [AeroEclipse II Nebulizer] Misc See Rx Instructions .Route Qty: 1 0RF Rx Instructions: As directed albuterol sulfate 2.5 mg /3 mL (0.083 %) solution for nebulization 2.5 mg inhalation Q6H PRN (Reason: shortness of breath or wheezing) 15 Days Qty: 180 0RF pantoprazole 20 mg tablet,delayed release (DR/EC) 1 tab PO DAILY amlodipine 10 mg tablet 1 tab PO DAILY calcitriol 0.5 mcg capsule 1 cap PO DAILY docusate sodium [Dulcolax Stool Softener (dss)] 100 mg capsule 1 cap PO BID Eliquis 2.5 mg Tablet 2.5 mg PO BID Qty: 60 4RF mycophenolate mofetil [CellCept] 250 mg capsule 500 mg PO BID ferrous sulfate [Feosol] 325 mg (65 mg iron) tablet 325 mg PO Q OTHER DAY folic acid 1 mg tablet 1 mg PO DAILY prednisone 5 mg tablet 5 mg PO DAILY sennosides [senna] 8.6 mg tablet 8.6 mg PO BID acetaminophen 650 mg tablet extended release 650 mg PO Q12H 30 Days Qty: 60 0RF tacrolimus 1 mg capsule 3 mg PO Q12H tacrolimus 5 mg capsule 10 mg PO Q12H Trulicity 1.5 mg/0.5 mL pen injector subcut Nexplanon 68 mg implant 68 mg subdermal DAILY sodium bicarbonate 650 mg tablet 1,300 mg PO TID PRN (Reason: Acid Reflux) famotidine [Pepcid] 20 mg tablet 20 mg PO DAILY albuterol sulfate [Ventolin HFA] 90 mcg/actuation HFA aerosol inhaler 90 mcg inhalation DAILY Referrals: Marcia Gunter PA-C [Physician Manager Outpatient] - (likely rotator cuff tear) Interventions: ED Discharge Assessment Last Done: 05/12/22 11:09 Discharge Date/Time: 05/12/22 11:11
[2022-05-12] MEDS: Cyclobenzaprine HCl 10 MG TABLET PO (08:50)
[2022-05-12] MEDS: Acetaminophen 325 MG TABLET 975 MG PO (08:50)
[2022-05-12 09:11] VITALS: BP 150/77; PULSE 83; RESP 16; O2SAT 96
[2022-05-12] MEDS: oxyCODONE HCl Immed Release 5 MG TABLET PO (10:24)
== END 2022-05-12 11:11 | disposition home or self-care (01) ==
PROVIDERS: Emergency Provider Emergency Medicine; PCP Physician Assistant
DX: S46.012A Strain of muscle(s) and tendon(s) of the rotator cuff of left shoulder, initial encounter (principal); M25.512 Pain in left shoulder; W00.0XXA Fall on same level due to ice and snow, initial encounter; Y93.9 Activity, unspecified; Y92.9 Unspecified place or not applicable; Y99.9 Unspecified external cause status; Z79.899 Other long term (current) drug therapy
CPT/HCPCS: 73200; 99284

== ENCOUNTER 2022-05-21 13:15 | Emergency (ER) | payer MEDICARE, MEDICAID, SELFPAY ==
[2022-05-21 13:22] VITALS: BP 191/122; PULSE 128; RESP 22; TEMP 37; O2SAT 95; BMI 37.1
--- NOTE | 2022-05-21 13:22 | ED.GENADULT ---
HPI - General Adult General Chief complaint: Extremity Injury, Upper <SCOTTY Snider - Last Filed: 05/21/22 13:27> Stated complaint: pain in L arm from fall last week. <SCOTTY Snider - Last Filed: 05/21/22 13:27> Time Seen by Provider: 05/21/22 16:38 <SCOTTY Snider - Last Filed: 05/21/22 13:27> History of Present Illness HPI narrative: patient who recently injured left shoulder in a fall with CT showing a rotator cuff tear complains of pain with slightest movement of the shoulder not relieved with oxycodone that she was given on her last visit She also complains that she thinks there is some fluid coming out of her armpit but cannot check the area as it hurts to move her shoulder She does have a port in the left upper arm that used to be a dialysis port, but then she got a kidney transplant and they left the port and in case she ever needs She denies any fever or chills <SCOTTY Infante - Last Filed: 05/21/22 18:52> Related Data Home medications: Home Medications Medication Instructions Recorded Confirmed amlodipine 10 mg tablet 1 tab PO DAILY 11/30/20 04/23/22 calcitriol 0.5 mcg capsule 1 cap PO DAILY 11/30/20 04/23/22 docusate sodium 100 mg capsule 1 cap PO BID 11/30/20 04/23/22 (Dulcolax Stool Softener (docusate)) pantoprazole 20 mg tablet,delayed 1 tab PO DAILY 11/30/20 04/23/22 release ferrous sulfate 325 mg (65 mg 325 mg PO Q OTHER DAY 12/19/20 04/23/22 iron) tablet (Feosol) folic acid 1 mg tablet 1 mg PO DAILY 12/19/20 04/23/22 mycophenolate mofetil 250 mg 500 mg PO BID 12/19/20 04/23/22 capsule (CellCept) prednisone 5 mg tablet 5 mg PO DAILY 12/19/20 04/23/22 sennosides 8.6 mg tablet (senna) 8.6 mg PO BID 12/19/20 04/23/22 etonogestrel 68 mg subdermal 68 mg subdermal DAILY 06/18/21 04/23/22 implant (Nexplanon) sodium bicarbonate 650 mg tablet 1,300 mg PO TID PRN Acid Reflux 06/18/21 04/23/22 albuterol sulfate 90 mcg/actuation 90 mcg inhalation DAILY 07/30/21 04/23/22 aerosol inhaler (Ventolin HFA) famotidine 20 mg tablet (Pepcid) 20 mg PO DAILY 07/30/21 04/23/22 tacrolimus 1 mg capsule, 3 mg PO Q12H 07/30/21 04/23/22 immediate-release tacrolimus 5 mg capsule, 10 mg PO Q12H 07/30/21 04/23/22 immediate-release dulaglutide 1.5 mg/0.5 mL mg subcut 11/26/21 04/23/22 subcutaneous pen injector ([employer]) Previous Rx's Medication Instructions Recorded acetaminophen 650 mg 650 mg PO Q12H 30 days #60 tabs 12/19/20 tablet,extended release albuterol sulfate 2.5 mg/3 mL 2.5 mg (3 mL) inhalation Q6H PRN 03/05/22 (0.083 %) solution for nebulization shortness of breath or wheezing 15 days #180 mL nebulizers (AeroEclipse II #1 ea 03/05/22 Nebulizer) oxycodone 5 mg tablet 5 mg PO Q6H PRN pain #10 tabs 05/12/22 apixaban 2.5 mg tablet (Eliquis) 2.5 mg PO BID #60 tabs 05/18/22 hydromorphone 2 mg tablet 2 mg PO Q6H PRN pain #14 tabs 05/21/22 (Dilaudid) lorazepam 1 mg tablet (Ativan) 1 mg PO BID PRN muscle spasm or 05/21/22 anxiety #10 tabs <SCOTTY Snider - Last Filed: 05/21/22 13:27> Allergies/adverse reactions: Allergies Allergy/AdvReac Type Severity Reaction Status Date / Time lisinopril [LISINOPRIL] Allergy Intermediate EYES SWELL Verified 05/21/22 13:21 SHUT, angioedema, angioedema tramadol [TRAMADOL] Allergy Intermediate HIVES Verified 05/21/22 13:21 piperacillin [Zosyn] Allergy Mild rash Verified 05/21/22 13:21 cefazolin Allergy Unknown Unknown Verified 05/21/22 13:21 hydrocodone [From VICODIN] Allergy Unknown UNKNOWN Verified 05/21/22 13:21 ibuprofen [From Motrin] Allergy Unknown Unknown Verified 05/21/22 13:21 shellfish derived Allergy Unknown Unknown Verified 05/21/22 13:21 Sulfa (Sulfonamide Allergy Unknown UNKNOWN Verified 05/21/22 13:21 Antibiotics) [SULFA (SULFONAMIDE ANTIBIOTICS)] vancomycin Allergy Unknown rash Verified 05/21/22 13:21 azithromycin AdvReac Intermediate dizziness/A Verified 05/21/22 13:21 KI <SCOTTY Snider - Last Filed: 05/21/22 13:27> [facility] Past Medical History [facility] Narrative: patient with a history of end-stage renal disease who had a kidney transplanted is no longer needing dialysis <SCOTTY Infante - Last Filed: 05/21/22 18:52> Medical History: Medical History Ankylosing spondylitis of lumbar region Chronic kidney disease History of pulmonary embolism Right lumbar radiculopathy <SCOTTY Snider - Last Filed: 05/21/22 13:27> Surgical History: Surgical History Hx of bilateral breast reduction surgery S/P kidney transplant Status post dialysis <SCOTTY Snider - Last Filed: 05/21/22 13:27> Family History Family History: Family History Mother No problems noted. Father No problems noted. <SCOTTY Snider - Last Filed: 05/21/22 13:27> Social History Social History: Social History Household Members: None Housing: Apartment Are you a primary critical care physician assistant to a significant other at home: No Do you presently have visiting nurse or other home services: No Alcohol intake: never Patient Tobacco Use Status: Former Tobacco user Years Smoked: 15 e-Cigarette/Vaping Use: Never Used Second Hand Smoke Exposure: No Advance Directives: No Advance Directives Information Provided: No Advance Directives Date on File: 02/26/20 service: No Current occupational status: disabled Gender identity: Female Cognitive needs: No Hearing needs: No Vision needs: Yes (Glasses) <SCOTTY Snider - Last Filed: 05/21/22 13:27> Physical Exam ED Vital Signs: Vital Signs - 24 hr 05/21/22 13:22 05/21/22 17:29 Temperature 98.6 F 98.2 F Pulse Rate 128 H 98 Respiratory Rate 22 H 20 Blood Pressure 191/122 H 132/79 Pulse Oximetry 95 97 Oxygen Delivery Method Room Air Room Air BMI result Body Mass Index 37.1 <SCOTTY Snider - Last Filed: 05/21/22 13:27> Vital Signs - 24 hr 05/21/22 13:22 05/21/22 17:29 Temperature 98.6 F 98.2 F Pulse Rate 128 H 98 Respiratory Rate 22 H 20 Blood Pressure 191/122 H 132/79 Pulse Oximetry 95 97 Oxygen Delivery Method Room Air Room Air BMI result Body Mass Index 37.1 <SCOTTY Infante Last Filed: 05/21/22 18:52> general appearance very uncomfortable anxious Head is normocephalic atraumatic Neck is supple nontender Chest clear to auscultation bilateral chest wall nontender Extremities the left shoulder is very tender on anterior and lateral palpation it is very painful to move it, the slightest touch as her crying and withdrawing from even soft touch Left axilla exam skin is normal in color there is no discharges no swelling no redness no evidence of abscess or cellulitis no mass Left upper arm the port is palpable in the medial left upper arm with no redness no swelling no tenderness over the port no discharge from the port area Other extremities are normal Neuro no focal motor sensory deficits Skin no rashes <SCOTTY Infante - Last Filed: 05/21/22 18:52> Course Course Course Narrative: RME - 46 yo female with history of kidney transplant presenting with ongoing left sided shoulder pain s/p fall on 05/11. CT scan here showing rotator cuff tear. Can't get into Orthopedics until 05/25. Tearful and crying in triage. Ran out of the oxycodone prescribed on 05/12/22. Offered a 3 day course of oxycodone but she reports this was not working. In excruating pain in triage - she will most likely require IM meds for adequate control and a plan determined prior to dispo. <SCOTTY Snider - Last Filed: 05/21/22 13:27> RME - 46 yo female with history of kidney transplant presenting with ongoing left sided shoulder pain s/p fall on 05/11. CT scan here showing rotator cuff tear. Can't get into Orthopedics until 05/25. Tearful and crying in triage. Ran out of the oxycodone prescribed on 05/12/22. Offered a 3 day course of oxycodone but she reports this was not working. In excruating pain in triage - she will most likely require IM meds for adequate control and a plan determined prior to dispo. Patient responded well to dilaudid with normalization of vital signs, pulse 98, blood pressure 132/79 after analgesics and Ativan After analgesics she was able to move the arm some walk, was very cooperative with exam and felt very improved The exam of her left axilla did not show any discharge did not show any redness or warmth did not show any fluctuance no mass no significant tenderness in the under arm, no sign of infection or abscess in the left axilla The port in her inner arm was easily palpated but again was not tender there was no redness no swelling no warmth over the area of the port Exam findings were lots of pain with moving the shoulder, limited range of motion and tenderness but again no redness or warmth in the area and there is a recent rotator cuff injury which explains the discomfort Left shoulder CT done on 05/12 after her accident showed likely full-thickness rotator cuff tear as well as minimal superior subluxation of the humeral head With no fever no redness no warmth septic arthritis very unlikely given that there is a clear explanation with rotator cuff injury <SCOTTY Infante - Last Filed: 05/21/22 18:52> Medications Administered Discontinued Medications Generic Name Dose Route Start Last Admin Trade Name Freq PRN Reason Stop Dose Admin Hydromorphone HCl 1 mg 05/21/22 17:03 05/21/22 17:12 Hydromorphone Hcl 1 Mg/Ml Syringe SUBCUT 05/21/22 17:04 1 mg ONCE ONE Administration Protocol Hydromorphone HCl 0.5 mg 05/21/22 18:10 05/21/22 18:15 Hydromorphone Hcl 0.5 Mg/0.5 Ml Syringe SUBCUT 05/21/22 18:11 0.5 mg ONCE ONE Administration Protocol Lorazepam 1 mg 05/21/22 17:05 05/21/22 17:12 Lorazepam 1 Mg Tablet PO 05/21/22 17:06 1 mg ONCE ONE Administration <SCOTTY Snider - Last Filed: 05/21/22 13:27> Medications Administered Discontinued Medications Generic Name Dose Route Start Last Admin Trade Name Freq PRN Reason Stop Dose Admin Hydromorphone HCl 1 mg 05/21/22 17:03 05/21/22 17:12 Hydromorphone Hcl 1 Mg/Ml Syringe SUBCUT 05/21/22 17:04 1 mg ONCE ONE Administration Protocol Hydromorphone HCl 0.5 mg 05/21/22 18:10 05/21/22 18:15 Hydromorphone Hcl 0.5 Mg/0.5 Ml Syringe SUBCUT 05/21/22 18:11 0.5 mg ONCE ONE Administration Protocol Lorazepam 1 mg 05/21/22 17:05 05/21/22 17:12 Lorazepam 1 Mg Tablet PO 05/21/22 17:06 1 mg ONCE ONE Administration <SCOTTY Infante - Last Filed: 05/21/22 18:52> Discharge Plan Discharge Clinical Impression: Unspecified injury of muscle(s) and tendon(s) of the rotator cuff of left shoulder, subsequent encounter <SCOTTY Snider - Last Filed: 05/21/22 13:27> Patient Disposition: Home, Self-Care <SCOTTY Snider - Last Filed: 05/21/22 13:27> Additional Instructions: follow with orthopedist You can follow with [facility] or doing lid orthopedic surgeon [phone] Return any time for fever, redness warmth any worse condition or any concerns <SCOTTY Snider - Last Filed: 05/21/22 13:27> Prescriptions: New hydromorphone [Dilaudid] 2 mg tablet 2 mg PO Q6H PRN (Reason: pain) Qty: 14 0RF Rx Instructions: Partial Fill upon patient request. lorazepam [Ativan] 1 mg tablet 1 mg PO BID PRN (Reason: muscle spasm or anxiety) Qty: 10 0RF No Action (DME) nebulizers [AeroEclipse II Nebulizer] Misc See Rx Instructions .Route Qty: 1 0RF Rx Instructions: As directed albuterol sulfate 2.5 mg /3 mL (0.083 %) solution for nebulization 2.5 mg inhalation Q6H PRN (Reason: shortness of breath or wheezing) 15 Days Qty: 180 0RF pantoprazole 20 mg tablet,delayed release (DR/EC) 1 tab PO DAILY amlodipine 10 mg tablet 1 tab PO DAILY calcitriol 0.5 mcg capsule 1 cap PO DAILY docusate sodium [Dulcolax Stool Softener (dss)] 100 mg capsule 1 cap PO BID oxycodone 5 mg tablet 5 mg PO Q6H PRN (Reason: pain) Qty: 10 0RF Rx Instructions: Partial Fill upon patient request. Eliquis 2.5 mg Tablet 2.5 mg PO BID Qty: 60 4RF mycophenolate mofetil [CellCept] 250 mg capsule 500 mg PO BID ferrous sulfate [Feosol] 325 mg (65 mg iron) tablet 325 mg PO Q OTHER DAY folic acid 1 mg tablet 1 mg PO DAILY prednisone 5 mg tablet 5 mg PO DAILY sennosides [senna] 8.6 mg tablet 8.6 mg PO BID acetaminophen 650 mg tablet extended release 650 mg PO Q12H 30 Days Qty: 60 0RF tacrolimus 1 mg capsule 3 mg PO Q12H tacrolimus 5 mg capsule 10 mg PO Q12H Trulicity 1.5 mg/0.5 mL pen injector subcut Nexplanon 68 mg implant 68 mg subdermal DAILY sodium bicarbonate 650 mg tablet 1,300 mg PO TID PRN (Reason: Acid Reflux) famotidine [Pepcid] 20 mg tablet 20 mg PO DAILY albuterol sulfate [Ventolin HFA] 90 mcg/actuation HFA aerosol inhaler 90 mcg inhalation DAILY <SCOTTY Snider - Last Filed: 05/21/22 13:27> Referrals: Kelechi Crespo MD [Physician] - ( rotator cuff tear) <SCOTTY Snider - Last Filed: 05/21/22 13:27> Interventions: ED Discharge Assessment Last Done: 05/21/22 19:19 <SCOTTY Snider - Last Filed: 05/21/22 13:27> Discharge Date/Time: 05/21/22 19:21 <SCOTTY Snider - Last Filed: 05/21/22 13:27>
[2022-05-21] MEDS: HYDROmorphone HCl 1 MG/ML SYRINGE SUBCUT (17:12)
[2022-05-21] MEDS: LORazepam 1 MG TABLET PO (17:12)
[2022-05-21 17:29] VITALS: BP 132/79; PULSE 98; RESP 20; TEMP 36.8; O2SAT 97
[2022-05-21] MEDS: HYDROmorphone HCl 0.5 MG/0.5 ML SYRINGE SUBCUT (18:15)
== END 2022-05-21 19:21 | disposition home or self-care (01) ==
PROVIDERS: Emergency Provider Emergency Medicine; PCP Physician Assistant
DX: M25.512 Pain in left shoulder (principal); S46.002D Unspecified injury of muscle(s) and tendon(s) of the rotator cuff of left shoulder, subsequent encounter; X58.XXXD Exposure to other specified factors, subsequent encounter; Z94.0 Kidney transplant status; Z87.891 Personal history of nicotine dependence; Z86.711 Personal history of pulmonary embolism; Z79.899 Other long term (current) drug therapy
CPT/HCPCS: 96372; 99282; 99284; J1170

== ENCOUNTER 2023-01-07 07:59 | Emergency (ER) | payer MEDICARE, MEDICAID, SELFPAY ==
[2023-01-07 08:03] VITALS: BP 158/84; PULSE 83; RESP 19; TEMP 36.6; O2SAT 98; BMI 37.1
--- OUTSIDE RECORDS SUMMARY | 2023-01-07 08:56 | XMS_ITS | Continuity of Care Document ---
Author Name Unknown Organization [facility] Address [address] [place] [id number]- Care Team Providers Care Delivery Professional Name Role Phone Alexx Walker Primary Care Physician [phone] [place] [facility] Date([place]): 09/05/21 - 10/05/[address] [id number] Allergies, Adverse Reactions, Alerts Substance Reaction Severity Status lisinopril lip/facial swelling Active sulfa drugs 1 Rash Active shellfish swelling Active Motrin can't take d/t kidneys Activ e Ultram Itching Active Vicodin itching Active 1Tolerates bactrim as outpt Immunizations Not Given Vaccine Date Status Refusal Reason influenza virus vaccine, inactivated 05/11/16 Not Given Patient Refuses influenza virus vaccine, inactivated 04/05/16 Not Given Parent Or Guardian Refuses influenza virus vaccine, inactivated 04/01/16 Not Given Patient Refuses pneumococcal 23-valent vaccine 04/05/16 Not Given Patient Refuses pneumococcal 23-valent vaccine 04/01/16 Not Given Patient Refuses Medications Amphotericin Lock Amphotericin Lock, See Instructions, # 15 units, Refills 0, Tot. Refills 0, Maintenance, Amphoterecin lock therapy 4mg/sml IV catheter Clearance with each Dialysis. Nephrology will take care of this., 10/15/18 14:48:20 EDT, Compound Start Date: 10/15/18 Status: Ordered apixaban 5 mg oral tablet = 5 mg, By Mouth, 2 times a day, # 60 tablet, 0 Refills, Maintenance, 05/17/18 14:01:50 EST, Tablet Start Date: 05/17/18 Stop Date: 06/16/18 Status: Ordered Breo Ellipta 100 mcg-25 mcg/inh inhalation powder 1 puffs, Inhalation, Daily, # 30 each, 2 Refills, Maintenance, 05/12/16 14:59:33, Powder, 1 puffs Inhalation Daily Start Date: 05/12/16 Status: Ordered Colace sodium 100 mg oral capsule 100 mg, 1, capsule, By Mouth, 2 times a day, PRN, # 20 capsule, Refills 0, Tot. Refills 0, Maintenance, for constipation, 06/02/19 10:24:00 EST, Print Requisition Start Date: 06/02/19 Stop Date: 06/12/19 Status: Ordered CPAP Mortgage Operations Manager, 10/22/18 2:06:53 EDT, Compound Start Date: 10/22/18 Status: Ordered docusate sodium 100 mg oral capsule 100 mg, 1, capsule, By Mouth, 2 times a day, PRN, Refills 0, Maintenance, for constipation, 04/28/19 14:59:00 EST Start Date: 04/28/19 Status: Ordered Epoetin Polo = 10,000 units, IV Push Slowly, Every Wednesday, and Wednesday, get at dialysis, 0 Refills, Maintenance, 08/18/18 14:48:58 EDT, Injection Start Date: 08/18/18 Status: Ordered Nephrocaps Vitamin B Complex with C and Folic Acid oral capsule 1 capsule, By Mouth, Daily in AM, # 30 capsule, 0 Refills, Maintenance, 05/02/17 2:29:49 EST, Capsule Start Date: 05/02/17 Status: Ordered oxyCODONE 10 mg oral tablet 1 tablet = 10 mg, By Mouth, 2 times a day, PRN as needed for pain, 0 Refills, Maintenance, 04/28/2014:00:00 EST, Tablet, Partial fill upon patient request Start Date: 04/28/19 Status: Ordered Protonix 40 mg oral delayed release tablet 1 tablet = 40 mg, By Mouth, Daily, # 30 tablet, 11 Refills, Maintenance, 05/16/15 16:15:43, EC Tablet, 1 tablet By Mouth Daily Start Date: 05/16/15 Status: Ordered Senexon 8.6 mg oral tablet 2 tablet = 17.2 mg, By Mouth, 2 times a day, PRN for constipation, # 100 tablet, 0 Refills, Maintenance, 05/02/17 2:32:59, Tablet Start Date: 05/02/17 Status: Ordered sulfamethoxazole-trimethoprim 400 mg-80 mg oral tablet 1 tablet, By Mouth, Daily in AM, # 10 tablet, 0 Refills, Maintenance, 07/26/19 9:28:00 EDT, Tablet Start Date: 07/26/19 Status: Ordered Velphoro 2500 mg (500 mg elemental iron) oral tablet, chewable 1 tablet = 500 mg, Chew, 3 times a day, WITH MEALS AND CHEW 1 TABLET WITH SNACKS (5 TABS TOTAL A DAY) Start Date: 10/24/18 Status: Ordered Vitamin D 12305 iu oral capsule 50,000 International_Units, 1, capsule, By Mouth, Daily, on dialysis days Start Date: 10/24/18 Status: Ordered Problem List Condition Effective Dates Status Health Status Inform ant CHRONIC DIASTOLIC HEART FAILURE(Confirmed) Active Chronic kidney disease, Stag e V(Confirmed) Active Dyspnea(Confirmed) Active 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 EM on 1 glom- open loops w mild foot process effacement, focal incr mesangmatrix, hyalinosis of loop, no deposits or tubuloreticular structrs. Immunofluor Ab's negative. Social History Social History Type Response Smoking Status Current every day sm oker; Tobacco user in household: No; Type: Cigarettes; Tobacco use times per day: appx 1 cigarette every other day; entered on: 05/27/16 Sex Medical Equipment Implanted Date:08/09/18Target Site:Arm Left Description Quantity MRI Company Model MESH PERIPATCH VASC 2X9 - LMTE (E2P9) 1 [employer] Unknown ANDREA:No Information Assigning Authority: FDA Implanted Date:10/03/16Target Site:Unknown Description Quantity MRI Company Model Artegraft, AG840, Collagen B ovine Product 1 [employer] Unknown ANDREA:No Information Assigning Authority: FDA
--- OUTSIDE RECORDS SUMMARY | 2023-01-07 08:56 | XMS_ITS | Continuity of Care Document ---
Author Name Unknown Organization [facility] ter Address [address] [place] [id number]- Care Team Providers Care Field Crew Chief Name Role Phone Alexx Walker Primary Care Physician En[place] [facility] [place] Date(s[place] 09/02/20 - 09/02/[address] [address] Discharge Disposition: A-D/C Home Attending Physician: Darrian Hernandez MD Admitting Physician: Darrian Hernandez MD Referring Physician: Darrian Hernandez MD Allergies, Adverse Reactions, Alerts Substance Reaction Severity Status Motrin can't take d/t kidneys Activ e lisinopril lip/facial swelling Active sulfa drugs 1 Rash Active shellfish swelling Active Ultram Itching Active Vicodin itching Active 1Tolerates [...] 06/02/19 Stop Date: 06/12/19 Status: Ordered CPAP Childbirth Educator, 10/22/18 2:06:53 EDT, Compound Start Date: 10/22/18 [...] EDT, Injection Start Date: 08/18/18 Status: Ordered FENTanyl Inj 25 mcg, Injection, IV Push Slowly, Every 5 minutes for 8 doses/times, in PACU ONLY, Hold for: RR less than 8 or over-sedation, PRN for Pain , Moderate, Repeat until Pain Score is less than or equal to 2, Routine, 09/02/20 10:19:00 EDT, Stop date Limit... Start Date: 09/02/20 Status: Ordered Nephrocaps Vitamin B Complex with [...] Start Date: 10/24/18 Status: Ordered Vitamin D 27339 iu oral capsule 50,000 International_Units, 1, capsule, [...] deposits or tubuloreticular structrs. Immunofluor Ab's negative. Vital Signs Most recent to oldest [Reference Range]: 1 2 3 Weight 113 kg (09/02/20 8:34 AM) Oxygen Saturation [94-100 %] 99 % (09/02/20 12:15 PM) 97 % (09/02/20 12:00 PM) 99 % (09/02/20 11:45 AM) Pulse Rate [55-90 bpm] 76 bpm (09/02/20 8:34 AM) Blood Pressure [90-138/55-84 mm Hg] 137/76mm Hg (09/02/20 12:15 PM) 142/75mm Hg *H* (09/02/20 12:00 PM) 145/65mm Hg *H* (09/02/20 11:30 AM) Respiratory Rate [16-30 br/min] 17 br/min (09/02/20 12:15 PM) 18 br/min (09/02/20 12:00 PM) 15 br/min *L* (09/02/20 11:45 AM) Temperature [96.8-100.4 DegF] 99.0 DegF (09/02/20 11:45 AM) 97.8 DegF (09/02/20 10:45 AM) Liters per Minute 6 L/min (09/02/20 12:00 PM) 6 L/min (09/02/20 11:30 AM) 6 L/min (09/02/20 11:15 AM) Mode of Delivery (Oxygen) Room air (09/02/20 2:48 PM) Room air (09/02/20 12:15 PM) Simple face mask (09/02/20 12:00 PM) Blood pressure sites Arm, right (09/02/20 8:34 AM) Temperature Route Temporal (09/02/20 11:45 AM) Temporal (09/02/20 10:45 AM) Dry Weight 113 kg (09/02/20 8:34 AM) Weight Obtained Via Standing scale (09/02/20 8:34 AM) Dry Weight Obtained Via Standing scale (09/02/20 8:34 AM) Social History Social History Type Response Smoking Status Current every day sm oker; Tobacco user in household: No; Type: Cigarettes; Tobacco use times per day: appx 1 cigarette every other day; entered on: 05/27/16 Sex Medical Equipment Implanted Date:08/09/18Target Site:Arm Left Description Quantity MRI Company Model MESH PERIPATCH VASC 2X9 - LMTE (E2P9) 1 [employer] Unknown ANDREA:No Information Assigning Authority: FDA Implanted Date:10/03/16Target Site:Unknown Description Quantity MRI Company Model Artegraft, AG840, Collagen B ovine Product 1 [employer] Unknown ANDREA:No Information Assigning Authority: FDA
--- OUTSIDE RECORDS SUMMARY | 2023-01-07 08:56 | XMS_ITS | Continuity of Care Document ---
Author Name Unknown Organization Wound Care Address [address] [place] [id number]- Care Team Providers Care It Infrastructure Architect Name Role Phone Eugene Tinoco MD Primary Care Physician [phone] Encounter [facility] R [id number] Date(s): 09/15/19 - 10/15/19 Wound Care [address] [place] [address]- [facility] Attending Physician: Admtr, Katia Allergies, Adverse Reactions, Alerts Substance Reaction Severity Status lisinopril lip/facial swelling Active sulfa drugs 1 Rash Active shellfish unknown Active Motrin can't take d/t kidneys Activ [...] 06/02/19 Stop Date: 06/12/19 Status: Ordered 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 Refills 0, Maintenance, 10/27/16 14:32:39 EDT, Route to Pharmacy Electronically, [id number], [facility] Start Date: 10/27/16 Stop Date: 12/10/16 Status: Ordered Nephrocaps Vitamin B Complex with C and Folic Acid oral capsule 1 capsule, By Mouth, Daily, # 30 capsule, 0 Refills, Maintenance, 05/02/17 2:29:49, Capsule Start Date: 05/02/17 Status: Ordered oxyCODONE 10 mg oral tablet 1 tablet = 10 mg, By Mouth, 3 times a day, PRN as needed for pain, 0 Refills, Maintenance, 04/28/2014:00:00 EST, Tablet, Partial fill upon patient request Start Date: 04/28/19 Status: Ordered oxyCODONE 15 mg oral tablet 1 tablet = 15 mg, By Mouth, Every 8 hours Start Date: 10/24/18 Status: Ordered Protonix 40 mg oral delayed [...] mg oral tablet 1 tablet, By Mouth, 2 times a day, # 10 tablet, 0 Refills, Maintenance, 07/26/19 9:28:00 EDT, Tablet Start Date: 07/26/19 Status: Ordered Velphoro 2500 mg (500 mg elemental iron) oral tablet, chewable 1 tablet = 500 mg, Chew, 3 times a day, WITH MEALS AND CHEW 1 TABLET WITH SNACKS (5 TABS TOTAL A DAY) Start Date: 10/24/18 Status: Ordered Vitamin D 39496 iu oral capsule 50,000 International_Units, 1, capsule, By Mouth, Daily, on dialysis days Start Date: 10/24/18 Status: Ordered Zofran 4 mg oral tablet 1 tablet = 4 mg, By Mouth, Every 6 hours, PRN as needed for nausea/vomiting, 0 Refills, Maintenance, 03/06/18 2:21:03 EST, Tablet Start Date: 03/06/18 Status: Ordered Problem List Condition Effective Dates [...] Implanted Date:08/09/18Target Site:Arm Left Description Quantity MRI Zyngenia Model MESH PERIPATCH VASC 2X9 - LMTE (E2P9) 1 [employer] Unknown ANDREA:No Information Assigning Authority: FDA Implanted Date:10/03/16Target Site:Unknown Description Quantity MRI Zyngenia Model Artegraft, AG840, Collagen B ovine Product 1 [employer] Unknown ANDREA:No Information Assigning Authority: FDA
--- OUTSIDE RECORDS SUMMARY | 2023-01-07 08:56 | XMS_ITS | Continuity of Care Document ---
Author Name Unknown Organization [facility] ter Address [address] [place] [address]- Care Team Providers Care Floor Sander Name Role Phone Alexx Walker Primary Care Physician Encounter [facility] [place] Date(s): 05/11/22 - 05/12/[address] [address]- Discharge Disposition: A-D/C Home Attending Physician: Kvng Cortes MD Admitting Physician: Kvng Cortes MD Referring Physician: Not on Staff, Referring MD Allergies, Adverse Reactions, Alerts Substance Reaction [...] vaccine 04/01/16 Not Given Patient Refuses Medications amLODIPine 10 mg oral tablet 1 tablet = 10 mg, By Mouth, Daily, # 30 tablet, 0 Refills, Maintenance, 05/12/22 0:34:00 EST, Tablet, Partial fill upon patient request if the prescription is for a schedule II opioid drug. Start Date: 05/12/22 Status: Ordered Amphotericin Lock Amphotericin Lock, See Instructions, # [...] Inhalation Daily Start Date: 05/12/16 Status: Ordered calcitriol 0.5 mcg oral capsule 1 capsule = 0.5 mcg, By Mouth, Daily, # 30 capsule, 0 Refills, Maintenance, 05/12/22 0:39:00 EST, Capsule, Partial fill upon patient request if the prescription is for a schedule II opioid drug. Start Date: 05/12/22 Status: Ordered Colace sodium 100 mg oral capsule 100 mg, 1, capsule, By Mouth, 2 times a day, PRN, # 20 capsule, Refills 0, Tot. 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 Start Date: 05/12/22 Status: Ordered Epoetin Polo = 10,000 units, IV Push Slowly, Every Wednesday, and Wednesday, get at dialysis, 0 Refills, Maintenance, 08/18/18 14:48:58 EDT, Injection Start Date: 08/18/18 Status: Ordered folic acid 1 mg oral tablet 1 mg, 1, tablet, By Mouth, Daily, # 30 tablet, Refills 0, Maintenance, 05/12/22 0:35:00 EST, Partial fill upon patient request if the prescription is for a schedule II opioid drug. Start Date: 05/12/22 Status: Ordered methocarbamol 500 mg oral tablet 2 tablet = 1,000 mg, By Mouth, 4 times a day, for 3 days, # 24 tablet, 0 Refills, Acute 05/15/22 1:40:00 EST, 05/12/22 1:40:00 EST, Tablet, [facility]/pharmacy #[id number], Partial fill upon patient request if the prescription is for a schedule II opioid drug., 16... Start Date: 05/12/22 Stop Date: 05/15/22 Status: Ordered Nephrocaps Vitamin B Complex with [...] patient request Start Date: 04/28/19 Status: Ordered pantoprazole 40 mg oral delayed release tablet 1 tablet = 40 mg, By Mouth, Daily, # 30 tablet, 0 Refills, Maintenance, 05/12/22 0:33:00 EST, EC Tablet Start Date: 05/12/22 Status: Ordered predniSONE 5 mg oral tablet 1 tablet = 5 mg, By Mouth, Daily, # 10 tablet, 0 Refills, Maintenance, 05/12/22 0:35:00 EST, Tablet, Partial fill upon patient request if the prescription is for a schedule II opioid drug. Start Date: 05/12/22 Stop Date: 05/22/22 Status: Ordered Protonix 40 mg oral delayed [...] 2:32:59, Tablet Start Date: 05/02/17 Status: Ordered sodium bicarbonate 325 mg oral tablet 1 tablet = 325 mg, By Mouth, 4 times a day, PRN for indigestion, # 30 tablet, 0 Refills, Maintenance, 05/12/22 0:36:00 EST, Tablet, Partial fill upon patient request if the prescription is for a schedule II opioid drug. 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 EM on 1 glom- open loops w mild foot process effacement, focal incr mesangmatrix, hyalinosis of loop, no deposits or tubuloreticular structrs. Immunofluor Ab's negative. Results Radiology Reports * Exam Date Time Procedure Performing Provider Status 05/12/22 12:48 AM Shoulder Min 2 Views Left Dorothy Julio; Auth (Verified) Notes: (Shoulder Min 2 Views Left) Reason For Exam: Trauma RESULT: Shoulder Min 2 Views Left Shoulder Min 2 Views Left, 4 views HX OF PRESENT ILLNESS: PT fell on ice landing on L shoulder, possible dislocation noted 10 10 pain COMPARISON: None. FINDINGS: No fracture or dislocation. Mild glenohumeral joint space narrowing and marginal spurring. Normal AC joint and portions of the clavicle included on the exam. No calcification of the rotator cuff. Proximal upper arm vascular stent. Left axillary surgical clips. IMPRESSION: No acute osseous process. I have personally reviewed the images and I agree with this report. WSN: [id number] Ordering Physician: Kanwal Markham Dictated By: Jacob Fong MD Dictated Date/Time: 05/12/22 8:01 am Reviewed By: Julio Sarabia MD Signed By: Julio Sarabia MD Signed Date/Time: 05/12/22 8:06 am Transcribed By: ABIGAIL Transcribed Date/Time: 05/12/22 7:55 am Vital Signs Most recent to oldest [Reference Range]: 1 2 Oxygen Saturation [94-100 %] 98 % (05/12/22 1:01 AM) 100 % (05/11/22 11:06 PM) Pulse Rate [55-90 bpm] 83 bpm (05/12/22 1:01 AM) 90 bpm (05/11/22 11:06 PM) Blood Pressure [90-138/55-84 mm Hg] 148/ 77mm Hg *H* (05/12/22 1:01 AM) 155/81mm Hg *H* (05/11/22 11:06 PM) Respiratory Rate [16-30 br/min] 20 br/mi n (05/12/22 1:01 AM) 19 br/min (05/11/22 11:06 PM) Temperature [96.8-100.4 DegF] 98.6 DegF (05/12/22 1:01 AM) 97.7 DegF (05/11/22 11:06 PM) Mode of Delivery (Oxygen) Room air (05/12/22 1:01 AM) Room air (05/11/22 11:06 PM) Blood pressure sites Arm, right (05/12/22 1:01 AM) Arm, right (05/11/22 11:06 PM) Temperature Route Oral (05/12/22 1:01 AM) Oral (05/11/22 11:06 PM) Social History Social History Type Response Smoking Status Current every day sm oker; Tobacco user in household: No; Type: Cigarettes; Tobacco use times per day: appx 1 cigarette every other day; entered on: 05/27/16 Sex Implantable Device List Procedure Provider Procedure Date Device Type Site Fistulagram / Fistulaplasty Noel AMAYA, Justin Dinora 08/09/18 Unknown Arm Left Device Identifier Serial Number Lot or Batch Number Manufacturing Date Expiration Date Distinct Identification Code MRI Safety Implantable Status Assigning Authority Unknown Unknown [id number] Unknown 08/14/22 Unknown Unknown Active Unk nown Procedure Provider Procedure Date Device Type Site Creation of Arteriovenous Fistula Unknown 10/03/16 Un known Unknown Device Identifier Serial Number Lot or Batch Number Manufacturing Date Expiration Date Distinct Identification Code MRI Safety Implantable Status Assigning Authority Unknown Unknown [id number] Unknown 04/18/19 Unknown Unknown Active Unknown Note * Kanwal Collado: PERFORM, SIGN, VERIFY Event Display: Patient Education Handout Authored Date: [id number] * Kanwal Collado: PERFORM Event Display: Patient Education Leaflets Authored Date: [id number] Shoulder Bruise ?? [id number] Shoulder Bruise You have a shoulder bruise (contusion). This causes pain, swelling, and sometimes bruising on the skin. You don???t have any broken bones. This injury will take from a few days to several weeks to heal, depending on how severe it is. Moderate to severe shoulder bruises are treated with a sling or shoulder immobilizer. Minor bruises can be treated without any special support. Home care Follow these tips when caring for yourself at home: ??? If you were given a sling to use, leave it in place for the time advised by your healthcare provider. If you aren???t sure how long to wear it,ask for advice. If the sling becomes loose, adjust it so that your forearm is parallel with the ground. Your shoulder should feel well supported. ??? Put an ice pack on the injured area for 20 minutes every 1 to 2 hours the first day. You can make your own ice pack by putting ice cubes in a plasticbag. Wrap the bag in a thin towel. Continue with ice packs 3 to 4 times a day for the next 2 days. Then use the pack as needed to ease pain and swelling. ??? You may use acetaminophen or ibuprofen tocontrol pain, unless another pain medicine was prescribed.??If you have chronic liver or kidney disease, talk with your healthcare provider before using these medicines. Also talk with your provider if you???ve ever had a stomach ulcer or digestive bleeding. ??? Shoulder and elbow joints become stiff if left in a sling for too long. You should start range of motion exercises about 7 to 10 days after the injury. Talk with your provider to find out what type of exercises to do and how soon to start. ??? Unless your provider told you otherwise, you can take the sling off to shower or bathe. ?? Follow-up care Follow up with your healthcare provider if you don???t start getting better in the next 5 days. ?? When to seek medical advice Call your healthcare provider right away??if any of the following occur: ??? Pain or swelling gets worse??or continues for more than a few days ??? Large amount of bruising on your shoulder or upper arm ??? Your hand or fingers become cold, blue, numb, or tingly ??? Trouble moving your hand or fingers ??? Weakness in your hand or fingers ??? Your shoulder becomes stiff ??? Your shoulder feels like it's popping out ??? You aren???t able to do your daily activities ?? Last Reviewed Date: 2021 ?? [id number] [employer]. All rights reserved. This information is not intended as a substitute for professional medical care. Always follow your healthcare professional's instructions. ?? XR Shoulder - left GE 2 Views * BHSPowerscribe , CIS S: UMM Sarabia MD, Julio J: TIARA Fong MD, [facility]: SIGN Event Display: Result: Authored Date: [id number] Shoulder Min 2 Views Left, 4 views HX OF PRESENT ILLNESS: PT fell on ice landing on L shoulder, possible dislocation noted 10 10 pain COMPARISON: None. FINDINGS: No fracture or dislocation. Mild glenohumeral joint space narrowing and marginal spurring. Normal AC joint and portions of the clavicle included on the exam. No calcification of the rotator cuff. Proximal upper arm vascular stent. Left axillary surgical clips. IMPRESSION: No acute osseous process. I have personally reviewed the images and I agree with this report. WSN: [id number] Ordering Physician: Kanwal Markham Dictated By: Jacob Fong MD Dictated Date/Time: 05/12/22 8:01 am Reviewed By: Julio Sarabia MD Signed By: Julio Saraiba MD Signed Date/Time: 05/12/22 8:06 am Transcribed By: ABIGAIL Transcribed Date/Time: 05/12/22 7:55 am Patient Care team information Care Team Personnel Name: Liane Prince RN Position: [facility] OB RN Member Role: Primary Care Nurse Name: Raegan Rivero RN Position: [facility] RN Member Role: Primary Care Nurse Name: Rohini Mckee RN Position: [facility] RN Member Role: Primary Care Nurse Name: Rand Almazan RN Position: [facility] Rad RN Member Role: Primary Care Nurse Name: Cayla Adan NP Position: [facility] PCO Associate Professional Member Role: Primary Care Nurse Name: Key Hairston RN Position: [facility] SN RN Member Role: Primary Care Nurse Name: Vero Osman NP Position: [facility] Associate Professional Member Role: Primary Care Nurse Address: Address: [address] [place] [address]- [place] Name: Felicia Donovan Position: [facility] Outreach Member Role: Lifetime Consulting Physician Name: Griselda Membreno RN Position: [facility] RN Member Role: Primary Care Nurse Name: Gisel Guzman RN Position: [facility] RN Member Role: Primary Care Nurse Name: Danna Fernández RN Position: [facility] RN Member Role: Primary Care Nurse Name: Bonnie Jorge RN Position: [facility] RN Member Role: Primary Care Nurse Name: Jada An NP Position: Reference Physician Member Role: Primary Care Nurse Address: Address: [address] [place] [address]- [place] Name: Yanira Schroeder RN Position: [facility] RN Member Role: Primary Care Nurse Name: Alexx Walker Position: Reference Physician Member Role: PCP Address: Address: [address] [place] [address]- [place] Name: Baylee Orellana RN Position: [facility] PCO RN Member Role: Primary Care Nurse Name: Marce Montes RN Position: [facility] RN Supv Member Role: Primary Care Nurse Name: Aneta Dean RN Position: [facility] RN Member Role: Primary Care Nurse Name: Katelyn Alberts RN Position: [facility] RN Member Role: Primary Care Nurse Name: Marya Kaye RN Position: [facility] RN Member Role: Primary Care Nurse Name: Maira Rushing Position: [facility] RN Member Role: Primary Care Nurse Name: Fox Ag DO Position: [facility] Renal MD Member Role: Lifetime Consulting Physician Address: Address: [address] [place], [place] [address] [place], [place] [address] Name: Maira Hodgson RN Position: [facility] SN RN Member Role: Primary Care Nurse Name: Carolyn Brown RN Position: [facility] RN Member Role: Primary Care Nurse Name: Eliot Brown RN Position: [facility] RN Member Role: Primary Care Nurse Name: Yury Mcbride Position: [facility] RN Member Role: Primary Care Nurse Name: Han England III, RN Position: [facility] RN Member Role: Primary Care Nurse Name: Qi Rodriguez Position: [facility] Nursing Department Chairperson Member Role: Primary Care Nurse Name: Mery Cui RN Position: [facility] RN Member Role: Primary Care Nurse Name: Rose Pham RN Position: [facility] RN Member Role: Primary Care Nurse Name: Gabino Yost RN Position: [facility] RN Member Role: Primary Care Nurse Name: Tawnya Galvan RN Position: [facility] RN Member Role: Primary Care Nurse Name: Ingrid Joseph RN Position: [facility] PCO RN Member Role: Primary Care Nurse Name: Richelle Ware RN Position: [facility] RN Member Role: Primary Care Nurse Name: Fabian Swanson RN Position: [facility] RN Member Role: Primary Care Nurse Name: Marce Mcdonald RN Position: [facility] RN Member Role: Primary Care Nurse Name: Felicia Melendrez RN Position: [facility] Hospital Software Reverse Engineer Member Role: Primary Care Nurse Name: Montrell Meadows RN Position: [facility] RN Supv Member Role: Primary Care Nurse Name: Cristina Medina RN Position: [facility] RN Member Role: Primary Care Nurse Name: Julio Waggoner RN Position: [facility] ED RN W/OE and Tasks Member Role: Primary Care Nurse Name: Natalia Chong RN Position: [facility] RN Member Role: Primary Care Nurse Name: Betty Augustine RN Position: [facility] RN Member Role: Primary Care Nurse Name: Olga Lidia Monk RN Position: [facility] RN Member Role: Primary Care Nurse Name: Erica Culver RN Position: [facility] Onco RN Member Role: Primary Care Nurse Name: Jayna Carter RN Position: [facility] RN Member Role: Primary Care Nurse Name: Anita Robles RN Position: [facility] Hospital Software Reverse Engineer Member Role: Primary Care Nurse Name: Sandra Bennett RN Position: [facility] RN Member Role: Primary Care Nurse Name: Jose Junior MD Position: [facility] Renal MD Member Role: Lifetime Consulting Physician Address: Address: [address] [place] [address] [facility] [address] Name: Kanwal Collado Position: [facility] Associate Professional Member Role: ED Physician Emergency Operator Address: Address: [address] [place] [address] Name: Rachel Abebe RN Position: [facility] ED RN W/OE and Tasks Member Role: Patient Care Provider Name: Kvng Cortes MD Position: [facility] ED Medicine MD Member Role: ED Attending Physician Address: Address: [address] [place] [address] Care Team Related Persons Name: YOEL SCHAEFER Name: RAMAN LAMA Address: [place] [address] Name: NONE, NONE
--- OUTSIDE RECORDS SUMMARY | 2023-01-07 08:56 | XMS_ITS | Continuity of Care Document ---
Author Name Unknown Organization [facility] Address [address] [place] [address]- Care Team Providers Care Transmitter Engineer In Charge Name Role Phone Alexx Walker Primary Care Physician [phone] Encounter [facility] Date(s): 02/05/22 - 03/07/[address] [address] Allergies, Adverse Reactions, Alerts Substance Reaction Severity Status sulfa drugs 1 Rash Active lisinopril lip/facial swelling Active shellfish swelling Active Motrin can't take [...] 06/02/19 Stop Date: 06/12/19 Status: Ordered CPAP Harbor Engineer, 10/22/18 2:06:53 EDT, Compound Start Date: 10/22/18 [...] Start Date: 10/24/18 Status: Ordered Vitamin D 20697 iu oral capsule 50,000 International_Units, 1, capsule, [...] Date Device Type Site Fistulagram / Fistulaplasty Justin Cohen MD 08/09/18 Unknown Arm Left Device Identifier Serial Number Lot or Batch Number Manufacturing Date Expiration Date Distinct Identification Code MRI Safety Implantable Status Assigning Authority Unknown Unknown [id number] Unknown 08/14/22 Unknown Unknown Active Unk nown Procedure Provider Procedure Date Device Type Site Creation of Arteriovenous Fistula Unknown 10/03/16 Un known Unknown Device Identifier Serial Number Lot or Batch Number Manufacturing Date Expiration Date Distinct Identification Code MRI Safety Implantable Status Assigning Authority Unknown Unknown [id number] Unknown 04/18/19 Unknown Unknown Active Unknown Patient Care team information Care Team Personnel Name: Liane Prince RN Position: [facility] OB RN Member Role: Primary Care Nurse Name: Raegan Rivero RN Position: [facility] RN Member Role: Primary Care Nurse Name: Rohini Mckee RN Position: [facility] RN Member Role: Primary Care Nurse Name: Rand Almazan RN Position: [facility] Rad RN Member Role: Primary Care Nurse Name: Cayla Adan NP Position: [facility] PCO Associate Professional Member Role: Primary Care Nurse Name: Key Hairston RN Position: [facility] SN RN Member Role: Primary Care Nurse Name: Vero Osman NP Position: [facility] Associate Professional Member Role: Primary Care Nurse Address: Address: [address] [place] [address]- [place] Name: Felicia Donovan Position: [facility] Outreach Member Role: Lifetime Consulting Physician Name: Griselda Membreno RN Position: [facility] RN Member Role: Primary Care Nurse Name: Gisel Guzman RN Position: [facility] RN Member Role: Primary Care Nurse Name: Danna Fernández RN Position: [facility] RN Member Role: Primary Care Nurse Name: Bonnie Jorge RN Position: [facility] RN Member Role: Primary Care Nurse Name: Jada An NP Position: Reference Physician Member Role: Primary Care Nurse Address: Address: [address] [place] [address] [address] [place] [address]- [place] Name: aYnira Schroeder RN Position: [facility] RN Member Role: Primary Care Nurse Name: Alexx Walker Position: Reference Physician Member Role: PCP Address: Address: [address] [place] [address] [address] [place] [address]- [place] Name: Baylee Orellana RN Position: [facility] PCO RN Member Role: Primary Care Nurse Name: Marce Montes RN Position: [facility] RN Suprose Member Role: Primary Care Nurse Name: Aneta Dean RN Position: [facility] RN Member Role: Primary Care Nurse Name: Katelyn Alberts RN Position: [facility] RN Member Role: Primary Care Nurse Name: Marya Kaye RN Position: [facility] RN Member Role: Primary Care Nurse Name: Maira Rushing Position: [facility] RN Member Role: Primary Care Nurse Name: Fox Ag DO Position: [facility] Renal MD Member Role: Lifetime Consulting Physician Address: Address: [address] [place], [place] [address]E [facility] [place] [address]- Name: Maira Hodgson RN Position: [facility] SN RN Member Role: Primary Care Nurse Name: Carolyn Brown RN Position: [facility] RN Member Role: Primary Care Nurse Name: Eliot Brown RN Position: [facility] RN Member Role: Primary Care Nurse Name: Yury Mcbride Position: [facility] RN Member Role: Primary Care Nurse Name: Han England III, RN Position: [facility] RN Member Role: Primary Care Nurse Name: Qi Rodriguez Position: [facility] ED RN W/OE and Tasks Member Role: Primary Care Nurse Name: Mery Cui RN Position: [facility] RN Member Role: Primary Care Nurse Name: Rose Pham RN Position: [facility] RN Member Role: Primary Care Nurse Name: Gabino Yost RN Position: [facility] RN Member Role: Primary Care Nurse Name: Tawnya Galvan RN Position: [facility] RN Member Role: Primary Care Nurse Name: Ingrid Joseph RN Position: [facility] PCO RN Member Role: Primary Care Nurse Name: Richelle Ware RN Position: [facility] RN Member Role: Primary Care Nurse Name: Fabian Swanson RN Position: [facility] RN Member Role: Primary Care Nurse Name: Marce Mcdonald RN Position: [facility] RN Member Role: Primary Care Nurse Name: Felicia Melendrez RN Position: [facility] Hospital Religious Education Teacher Member Role: Primary Care Nurse Name: Montrell Meadows RN Position: [facility] RN Supv Member Role: Primary Care Nurse Name: Cristina Medina RN Position: [facility] RN Member Role: Primary Care Nurse Name: Julio Waggoner RN Position: [facility] ED RN W/OE and Tasks Member Role: Primary Care Nurse Name: Natalia Chong RN Position: [facility] RN Member Role: Primary Care Nurse Name: Betty Augustine RN Position: [facility] RN Member Role: Primary Care Nurse Name: Olga Lidia Monk RN Position: [facility] RN Member Role: Primary Care Nurse Name: Abiola ALEXANDER, Erica Tirado Position: [facility] Onco RN Member Role: Primary Care Nurse Name: Jayna Carter RN Position: [facility] RN Member Role: Primary Care Nurse Name: Anita Robles RN Position: [facility] Hospital Religious Education Teacher Member Role: Primary Care Nurse Name: Sandra Bennett RN Position: [facility] RN Member Role: Primary Care Nurse Name: Jose Junior MD Position: [facility] Renal MD Member Role: Lifetime Consulting Physician Address: Address: [address] [place] [address] [facility] [place] [address]- Care Team Related Persons Name: YOEL SCHAEFER Name: RAMAN LAMA Address: [place] [address] Name: NONE, NONE
--- OUTSIDE RECORDS SUMMARY | 2023-01-07 08:56 | XMS_ITS | Continuity of Care Document ---
Author Name Unknown Organization [facility] Address [address] [place] [address]- Care Team Providers Care Rice Drier Name Role Phone Alexx Walker Primary Care Physician Encounter [facility] [place] [place] [facility] R [id number] Date(s): 07/15/21 - 09/11/[address] [address] Attending Physician: Damaris Hawthorne NP Admitting Physician: Damaris Hawthorne NP Referring Physician: Alexx Walker Allergies, Adverse Reactions, Alerts Substance Reaction Severity [...] 06/02/19 Stop Date: 06/12/19 Status: Ordered CPAP Volumetric Weigher, 10/22/18 2:06:53 EDT, Compound Start Date: 10/22/18 [...] Start Date: 10/24/18 Status: Ordered Vitamin D 81056 iu oral capsule 50,000 International_Units, 1, capsule, [...] Implanted Date:08/09/18Target Site:Arm Left Description Quantity MRI Arithmatica Model MESH PERIPATCH VASC 2X9 - LMTE (E2P9) 1 [employer] Unknown ANDREA:No Information Assigning Authority: FDA Implanted Date:10/03/16Target Site:Unknown Description Quantity MRI Arithmatica Model Artegraft, AG840, Collagen B ovine Product 1 [employer] Unknown ANDREA:No Information Assigning Authority: FDA
--- OUTSIDE RECORDS SUMMARY | 2023-01-07 08:56 | XMS_ITS | Continuity of Care Document ---
Author Name Unknown Organization [facility] Address [address] [place] [address]- Care Team Providers Care Laborer Tin [place] Name Role Phone Alexx Walker Primary Care Physician En[place] [facility] [place] Date(s): 04/22/20 - 04/22/[address] [address] Discharge Disposition: A-D/C Home Attending Physician: Dion Watts MD Admitting Physician: Dion Watts MD Referring Physician: Dion Watts MD Allergies, Adverse Reactions, Alerts Substance Reaction [...] 06/02/19 Stop Date: 06/12/19 Status: Ordered CPAP Vocational Training Teacher, 10/22/18 2:06:53 EDT, Compound Start Date: [...] patient request Start Date: 04/28/19 Status: Ordered OxyCODONE IR Tablet 10 mg, Tablet, By Mouth, Every 4 hours, in PACU ONLY, if patient can tolerate PO, PRN for Pain , Severe, Routine, 04/22/20 13:37:00 EST Start Date: 04/22/20 Stop Date: 04/29/20 Status: Ordered Protonix 40 mg oral delayed [...] Start Date: 10/24/18 Status: Ordered Vitamin D 72355 iu oral capsule 50,000 International_Units, 1, capsule, [...] to oldest [Reference Range]: 1 2 3 Oxygen Saturation [94-100 %] 97 % (04/22/20 3:45 PM) 100 % (04/22/20 3:30 PM) 100 % (04/22/20 3:15 PM) Pulse Rate [55-90 bpm] 84 bpm (04/22/20 11:34 AM) Blood Pressure [90-138/55-84 mm Hg] 139/61mm Hg *H* (04/22/20 3:45 PM) 141/76mm Hg *H* (04/22/20 3:30 PM) 156/106mm Hg *H* (04/22/20 3:15 PM) Respiratory Rate [16-30 br/min] 18 br/min (04/22/20 3:30 PM) 20 br/min (04/22/20 3:15 PM) 20 br/min (04/22/20 3:04 PM) Temperature [96.8-100.4 DegF] 98.6 DegF (04/22/20 3:30 PM) 99.6 DegF (04/22/20 2:45 PM) 98.9 DegF (04/22/20 11:34 AM) Liters per Minute 5 L/min (04/22/20 2:45 PM) Mode of Delivery (Oxygen) Room air (04/22/20 5:30 PM) Room air (04/22/20 3:45 PM) Room air (04/22/20 3:15 PM) Blood pressure sites Arm, right (04/22/20 2:45 PM) Temperature Route Temporal (04/22/20 3:30 PM) Temporal (04/22/20 2:45 PM) Temporal (04/22/20 11:34 AM) Social History Social History Type Response Smoking Status Current every day sm oker; Tobacco user in household: No; Type: Cigarettes; Tobacco use times per day: appx 1 cigarette every other day; entered on: 05/27/16 Sex Medical Equipment Implanted Date:08/09/18Target Site:Arm Left Description Quantity MRI Company Model MESH PERIPATCH VASC 2X9 - LMTE (E2P9) 1 [employer] Unknown ANDREA:No Information Assigning Authority: FDA Implanted Date:10/03/16Target Site:Unknown Description Quantity MRI Company Model Artegraft, AG840, Collagen B ovine Product 1 [employer] Unknown ANDREA:No Information Assigning Authority: FDA
--- OUTSIDE RECORDS SUMMARY | 2023-01-07 08:56 | XMS_ITS | Continuity of Care Document ---
Author Name Unknown Organization [facility] Address [address] [place] [address] Dr [address] [place] [address]- Care Team Providers Care Bulk Plant Operator Name Role Phone Eugene Tinoco MD Primary Care Physician Encounter [facility] [place] Date(s): 06/30/19 - 07/10/[address] [place] [address]- [facility] Attending Physician: Katia Desir Admitting Physician: Katia Desir Referring Physician: AdmtrKatia Allergies, Adverse Reactions, Alerts Substance Reaction Severity [...] Inhalation Daily Start Date: 05/12/16 Status: Ordered calcium carbonate 500 mg (200 mg elemental calcium) oral tablet, chewable 1,000 mg, 2, tablet, Chew, Daily, PRN, Refills 0, Maintenance, Dyspepsia, 05/17/18 13:47:42 EST Start Date: 05/17/18 Status: Ordered Colace sodium 100 mg oral capsule 100 mg, 1, capsule, By Mouth, 2 times a day, PRN, # 20 capsule, Refills 0, Tot. Refills 0, Maintenance, for constipation, 06/02/19 10:24:00 EST, Print Requisition Start Date: 06/02/19 Stop Date: 06/12/19 Status: Ordered CPAP Attraction Worker, 10/22/18 2:06:53 EDT, Compound Start Date: 10/22/18 [...] 10/27/16 14:32:39 EDT, Route to Pharmacy Electronically, [id number], [facility] 3 Start Date: 10/27/16 Stop Date: 12/10/16 [...] 2:32:59, Tablet Start Date: 05/02/17 Status: Ordered Velphoro 2500 mg (500 mg elemental iron) oral tablet, chewable 1 tablet = 500 mg, Chew, 3 times a day, WITH MEALS AND CHEW 1 TABLET WITH SNACKS (5 TABS TOTAL A DAY) Start Date: 10/24/18 Status: Ordered Vitamin D 96869 iu oral capsule 50,000 International_Units, 1, capsule, [...] Implanted Date:08/09/18Target Site:Arm Left Description Quantity MRI Message Bus Model MESH PERIPATCH VASC 2X9 - LMTE (E2P9) 1 [employer] Unknown ANDREA:No Information Assigning Authority: FDA Implanted Date:10/03/16Target Site:Unknown Description Quantity MRI Company Model Artegraft, AG840, Collagen B ovine Product 1 [employer] Unknown ANDREA:No Information Assigning Authority: FDA
--- OUTSIDE RECORDS SUMMARY | 2023-01-07 08:56 | XMS_ITS | Continuity of Care Document ---
Author Name Unknown Organization [facility] Address [address] [place] [address]- Care Team Providers Care Archivist Economic History Name Role Phone Eugene Tinoco MD Primary Care Physician [place] [facility] [place](s): 10/18/19 - 10/18/[address] [address] [facility] Discharge Disposition: A-D/C Home Attending Physician: Darrian [...] 06/02/19 Stop Date: 06/12/19 Status: Ordered CPAP Continuous Drier Helper, 10/22/18 2:06:53 EDT, Compound Start Date: 10/22/18 [...] 10/27/16 14:32:39 EDT, Route to Pharmacy Electronically, [id number], [facility] 3 Start Date: 10/27/16 Stop [...] Start Date: 10/24/18 Status: Ordered Vitamin D 49189 iu oral capsule 50,000 International_Units, 1, capsule, [...] to oldest [Reference Range]: 1 2 3 4 Weight 112.8 kg (10/18/19 11:58 AM) Oxygen Saturation [94-100 %] 96 % (10/18/19 3:15 PM) 98 % (10/18/19 2:45 PM) 93 % *L* (10/18/19 2:30 PM) Pulse Rate [55-90 bpm] 85 bpm (10/18/19 11:58 AM) Blood Pressure [90-138/55-84 mm Hg] 153/90mm Hg *H* (10/18/19 3:15 PM) 144/96mm Hg *H* (10/18/19 2:45 PM) 137/80mm Hg (10/18/19 2:30 PM) Respiratory Rate [16-30 br/min] 19 br/min (10/18/19 3:15 PM) 18 br/min (10/18/19 2:45 PM) 6 br/min *L* (10/18/19 2:30 PM) Temperature [96.8-100.4 DegF] 97.3 DegF (10/18/19 1:30 PM) 98.2 DegF (10/18/19 11:58 AM) Liters per Minute 5 L/min (10/18/19 2:00 PM) 5 L/min (10/18/19 2:00 PM) 5 L/min (10/18/19 1:45 PM) 5 L/min (10/18/19 1:45 PM) Mode of Delivery (Oxygen) Room air (10/18/19 3:15 PM) Room air (10/18/19 2:45 PM) Room air (10/18/19 2:30 PM) Blood pressure sites Arm, right (10/18/19 3:15 PM) Arm, right (10/18/19 2:45 PM) Arm, right (10/18/19 2:30 PM) Temperature Route Temporal (10/18/19 1:30 PM) Temporal (10/18/19 11:58 AM) Dry Weight 112.8 kg (10/18/19 11:58 AM) Weight Obtained Via Standing scale (10/18/19 11:58 AM) Dry Weight Obtained Via Standing scale (10/18/19 11:58 AM) Social History Social History Type Response Smoking Status Current every day sm oker; Tobacco user in household: No; Type: Cigarettes; Tobacco use times per day: appx 1 cigarette every other day; entered on: 05/27/16 Sex Medical Equipment Implanted Date:08/09/18Target Site:Arm Left Description Quantity MRI Company Model MESH PERIPATCH VASC 2X9 - LMTE (E2P9) 1 [employer] Unknown ANDREA:No Information Assigning Authority: FDA Implanted Date:10/03/16Target Site:Unknown Description Quantity MRI Company Model Artegraft, AG840, Collagen B ovine Product 1 [employer] Unknown ANDREA:No Information Assigning Authority: FDA
--- OUTSIDE RECORDS SUMMARY | 2023-01-07 08:56 | XMS_ITS | Continuity of Care Document ---
Author Name Unknown Organization [facility] Address [address] [place] [address] Dr [address] [place] [address]- Care Team Providers Care Transportation Security Screener Name Role Phone Eugene Tinoco MD Primary Care Physician Encounter [facility] Date(s): 06/16/19 - 06/23/[address] [place] [address]- [facility] Attending Physician: Jasvir Mcbride MD Allergies, Adverse Reactions, Alerts Substance Reaction [...] 06/02/19 Stop Date: 06/12/19 Status: Ordered CPAP Quantitative Software Engineer, 10/22/18 2:06:53 EDT, Compound Start Date: [...] 10/27/16 14:32:39 EDT, Route to Pharmacy Electronically, [id number], [facility] 3 Start Date: 10/27/16 Stop Date: [...] 2:32:59, Tablet Start Date: 05/02/17 Status: Ordered Silvadene 1% cream 1 application, Topically, Daily, for 14 days, # 50 Gm, 0 Refills, Acute 06/30/19 15:01:00 EDT, 06/16/19 15:01:00 EST, Cream, [facility] [place], [place] -, 1 application Topically Daily,x14 days, 166, cm, 06/16/19 14:30:00 EST, Height, 113.1, kg... Start Date: 06/16/19 Stop Date: 06/30/19 Status: Ordered Velphoro 2500 mg (500 mg elemental iron) oral tablet, chewable 1 tablet = 500 mg, Chew, 3 times a day, WITH MEALS AND CHEW 1 TABLET WITH SNACKS (5 TABS TOTAL A DAY) Start Date: 10/24/18 Status: Ordered Vitamin D 94137 iu oral capsule 50,000 International_Units, 1, capsule, [...] Most recent to oldest [Reference Range]: 1 Height 166 cm (06/16/19 2:30 PM) Pulse Rate [55-90 bpm] 82 bpm (06/16/19 2:30 PM) Blood Pressure [90-138/55-84 mm Hg] 134/ 55mm Hg (06/16/19 2:30 PM) Temperature [96.8-100.4 DegF] 97.6 DegF (06/16/19 2:30 PM) Blood pressure sites Arm, right (06/16/19 2:30 PM) Temperature Route Temporal (06/16/19 2:30 PM) Social History Social History Type Response Smoking Status Current every day sm oker; Tobacco user in household: No; Type: Cigarettes; Tobacco use times per day: appx 1 cigarette every other day; entered on: 05/27/16 Sex Medical Equipment Implanted Date:08/09/18Target Site:Arm Left Description Quantity MRI Company Model MESH PERIPATCH VASC 2X9 - LMTE (E2P9) 1 [employer] Unknown ANDREA:No Information Assigning Authority: FDA Implanted Date:10/03/16Target Site:Unknown Description Quantity MRI Company Model Artegraft, AG840, Collagen B ovine Product 1 [employer] Unknown ANDREA:No Information Assigning Authority: FDA
--- OUTSIDE RECORDS SUMMARY | 2023-01-07 08:56 | XMS_ITS | Patient Health Record ---
Author Name [facility] Address [address] [place] [address] Care Team Providers Care Diabetes Territory Manager Name Role Phone Alexx Baum Primary Care Provider Unavailab Nan Roper Unavailable [phone] ALLERGIES Allergen (clinical drug ingredient) Drug/Non Drug Allergy documented on EMR Reaction Allergy Type Onset Date Status ibuprofen Advil Unknown Drug Allergy Active naproxen Aleve Unknown Drug Allergy Active sulfamethoxazole / trimethoprim Bactrim Unknown Drug Allergy Active povidone-iodine Betadine Unknown Drug Allergy A ctive lisinopril Lisinopril Unknown Drug Allergy Activ e Motrin Unknown Drug Allergy Active tramadol Ultram Unknown Drug Allergy Active Vicodin Unknown Drug Allergy Active REASON FOR REFERRAL No Information MEDICATIONS Medication SIG (Take, Route, Frequency, Duration) Notes Start Date End Date Status oxyCODONE HCl 15 MG Orally Active Protonix 40 MG Orally Activ e Albuterol Sulfate 90 mcg Active B Complex Vitamins Plus 1 mg Active Breo Ellipta 100-25 MCG/INH Inhalation Active Renvela 800 MG Orally Activ e Metoprolol Tartrate 25 MG Orally Active Nephrocaps 1 MG Orally Acti ve Lactulose 20 GM Orally Acti ve Calcium Carbonate 500 MG Orally Active Senexon 8.6 MG Orally Activ e Eliquis 2.5 MG Orally Activ e Zofran 4 MG Orally Active Diphenhydramine 25 mg Active Vitamin D3 2000 UNIT Orally Active Ethyl Chloride 100% Active SOCIAL HISTORY Tobacco Use: Social History Observation Description Date Details (start date - stop date) Current Smoker NA - NA Sex Assigned At : Social History Observation Description Sex Assigned At Unknown Tobacco Use/Smoking Question Answer Notes Are you a: current smoker Alcohol Screen Question Answer Notes Did you have a drink containing alcohol in the p ast year? No Points 0 Interpretation Negative Tobacco use other than smoking: Question Answer Notes Are you an other tobacco user? No Encounters Encounter Location Date Provider Diagnosis [facility] [place] [address] [place] [address] 06/02/2022 Nan Phillips [facility] [address] 06/26/2022 Nan Phillips PLAN OF TREATMENT No Information Insurance Providers Payer Name Payer Address Payer Phone Subscriber Number Group Number Insured Name Patient Relationship to Insured Coverage Start Date Coverage End Date Medicare National Govt Svcs Inc [address] [place] [address] [id number] Dara Robles Self - patient is the insured MEDICAL (GENERAL) HISTORY Medical History History ICD Code Anxiety asthma Depression Kidney disease Surgical History Surgery Date(Month/Year)
--- OUTSIDE RECORDS SUMMARY | 2023-01-07 08:56 | XMS_ITS | Continuity of Care Document ---
Author Name Unknown Organization [facility] ter Address [address] [place] [address]- Care Team Providers Care Consulting Technical Director Name Role Phone Eugene Tinoco MD Primary Care Physician [facility] Date(s): 11/27/19 - 11/27/[address] [address]- [facility] Discharge Disposition: A-D/C Home Attending Physician: Darrian [...] 06/02/19 Stop Date: 06/12/19 Status: Ordered CPAP Test Rack Operator, 10/22/18 2:06:53 EDT, Compound Start Date: 10/22/18 Status: Ordered Dilaudid 2 mg oral tablet 1 tablet = 2 mg, By Mouth, Every 6 hours, PRN for pain, for 2 days, # 8 tablet, 0 Refills, Acute 11/29/19 10:58:00 EDT, 11/27/19 10:58:00 EDT, Tablet, Partial fill upon patient request Start Date: 11/27/19 Stop Date: 11/29/19 Status: Ordered docusate sodium 100 mg oral [...] 10/27/16 14:32:39 EDT, Route to Pharmacy Electronically, [id number], [facility] 3 Start Date: 10/27/16 Stop Date: 12/10/16 [...] Start Date: 10/24/18 Status: Ordered Vitamin D 44748 iu oral capsule 50,000 International_Units, 1, capsule, [...] Exam Date Time Procedure Performing Provider Status 11/27/19 8:41 AM C-Arm < 1 Hour Ana Baer; Auth ( Verified) Notes: (C-Arm < 1 Hour) Reason For Exam: left arm fistulagram tt 30min ft 19.1sec DAP 4.31mGy RESULT: C-Arm < 1 Hour C-Arm < 1 Hour INDICATION: Reason: left arm fistulagram tt 30min ft 19.1sec DAP 4.31mGy COMPARISONS: None TECHNIQUE: Fluoroscopy support was provided. There was no radiologist in attendance. Fluoroscopy time: 19.1 seconds Technologist time: 30 minutes Exposure: 4.31 mGy FINDINGS: Fluoroscopy support was provided. There was no radiologist in attendance. IMPRESSION: See above. WSN: [id number] Ordering Physician: Darrian Hernandez Dictated By: Julio Sarabia MD Dictated Date/Time: 11/27/19 1:25 pm Reviewed By: Julio Sarabia MD Signed By: Julio Sarabia MD Signed Date/Time: 11/27/19 1:25 pm Transcribed By: ABIGAIL Transcribed Date/Time: 11/27/19 1:25 pm Vital Signs Most recent to oldest [Reference Range]: 1 2 3 Weight 111.8 kg (11/27/19 7:02 AM) Oxygen Saturation [94-100 %] 98 % (11/27/19 10:26 AM) 95 % (11/27/19 10:15 AM) 97 % (11/27/19 10:00 AM) Pulse Rate [55-90 bpm] 65 bpm (11/27/19 7:02 AM) Blood Pressure [90-138/55-84 mm Hg] 99/47mm Hg (11/27/19 10:15 AM) 143/70mm Hg *H* (11/27/19 10:00 AM) 118/65mm Hg (11/27/19 9:45 AM) Respiratory Rate [16-30 br/min] 16 br/min (11/27/19 10:41 AM) 32 br/min *H* (11/27/19 10:26 AM) 16 br/min (11/27/19 10:15 AM) Temperature [96.8-100.4 DegF] 97.4 DegF (11/27/19 9:15 AM) 97.7 DegF (11/27/19 7:02 AM) Liters per Minute 4 L/min (11/27/19 9:15 AM) Mode of Delivery (Oxygen) Room air (11/27/19 10:57 AM) Room air (11/27/19 10:15 AM) Room air (11/27/19 10:00 AM) Blood pressure sites Arm, right (11/27/19 9:15 AM) Arm, right (11/27/19 7:02 AM) Temperature Route Temporal (11/27/19 9:15 AM) Temporal (11/27/19 7:02 AM) Dry Weight 111.8 kg (11/27/19 7:02 AM) Weight Obtained Via Standing scale (11/27/19 7:02 AM) Dry Weight Obtained Via Standing scale (11/27/19 7:02 AM) Social History Social History Type Response Smoking Status Current every day sm oker; Tobacco user in household: No; Type: Cigarettes; Tobacco use times per day: appx 1 cigarette every other day; entered on: 05/27/16 Sex Medical Equipment Implanted Date:08/09/18Target Site:Arm Left Description Quantity MRI Company Model MESH PERIPATCH VASC 2X9 - LMTE (E2P9) 1 [employer] Unknown ANDREA:No Information Assigning Authority: FDA Implanted Date:10/03/16Target Site:Unknown Description Quantity MRI Company Model Artegraft, AG840, Collagen B ovine Product 1 [employer] Inc Unknown ANDREA:No Information Assigning Authority: FDA
--- OUTSIDE RECORDS SUMMARY | 2023-01-07 08:56 | XMS_ITS | Continuity of Care Document ---
Author Name Unknown Organization [facility] ter Address [address] [place] [address]- Care Team Providers Care Drapery Estimator Name Role Phone Eugene Tinoco MD Primary Care Physician Encounter [facility] Date(s): 03/31/19 - 03/31/[address] [address]- [facility] Discharge Disposition: A-D/C Home Attending Physician: Scot Watts MD Admitting Physician: Scot Watts MD Referring Physician: Scot Watts MD Allergies, Adverse Reactions, Alerts Substance [...] 13:47:42 EST Start Date: 05/17/18 Status: Ordered CPAP Radiotelegraphist, 10/22/18 2:06:53 EDT, Compound Start Date: 10/22/18 Status: Ordered Epoetin Polo = 10,000 units, IV Push Slowly, Every Wednesday, and Wednesday, 0 Refills, Maintenance, 08/18/18 14:48:58 EDT, Injection Start Date: 08/18/18 Status: Ordered metoprolol 25 mg oral tablet 12.5 mg, 0.5, tablet, By Mouth, 2 times a day, 12.5mg BID, # 60 tablet, Refills 0, Tot. Refills 0, Maintenance, 10/27/16 14:32:39 EDT, Route to Pharmacy Electronically, [id number], [facility] 3 Start Date: 10/27/16 Stop Date: 12/10/16 Status: Ordered Nephrocaps Vitamin B Complex with C and Folic Acid oral capsule 1 capsule, By Mouth, Daily, # 30 capsule, 0 Refills, Maintenance, 05/02/17 2:29:49, Capsule Start Date: 05/02/17 Status: Ordered oxyCODONE 15 mg oral tablet [...] Start Date: 10/24/18 Status: Ordered Vitamin D 56189 iu oral capsule 50,000 International_Units, 1, capsule, [...] oldest [Reference Range]: 1 2 3 Weight 112.9 kg (03/31/19 7:48 AM) Oxygen Saturation [94-100 %] 75 % *L* (03/31/19 12:15 PM) 75 % *L* (03/31/19 12:00 PM) 79 % *L* (03/31/19 11:45 AM) Pulse Rate [55-90 bpm] 64 bpm (03/31/19 7:48 AM) Blood Pressure [90-138/55-84 mm Hg] 153/88mm Hg *H* (03/31/19 12:15 PM) 136/44mm Hg (03/31/19 12:00 PM) 115/82mm Hg (03/31/19 11:45 AM) Respiratory Rate [16-30 br/min] 22 br/min (03/31/19 12:30 PM) 15 br/min *L* (03/31/19 12:15 PM) 19 br/min (03/31/19 12:00 PM) Temperature [96.8-100.4 DegF] 98.1 DegF (03/31/19 12:00 PM) 97.8 DegF (03/31/19 11:15 AM) 98 DegF (03/31/19 7:48 AM) Mode of Delivery (Oxygen) Room air (03/31/19 12:15 PM) Room air (03/31/19 12:00 PM) Room air (03/31/19 11:45 AM) Temperature Route Temporal (03/31/19 12:00 PM) Temporal (03/31/19 11:15 AM) Temporal (03/31/19 7:48 AM) Dry Weight 112.9 kg (03/31/19 7:48 AM) Dry Weight Obtained Via Standing scale (03/31/19 7:48 AM) Social History Social History Type Response Smoking Status Current every day sm nola; Tobacco user in household: No; Type: Cigarettes; Tobacco use times per day: appx 1 cigarette every other day; entered on: 05/27/16 Sex Medical Equipment Implanted Date:08/09/18Target Site:Arm Left Description Quantity MRI Company Model MESH PERIPATCH VASC 2X9 - LMTE (E2P9) 1 [employer] Unknown ANDREA:No Information Assigning Authority: FDA Implanted Date:10/03/16Target Site:Unknown Description Quantity MRI Company Model Artegraft, AG840, Collagen B ovine Product 1 [employer] Unknown ANDREA:No Information Assigning Authority: FDA
--- OUTSIDE RECORDS SUMMARY | 2023-01-07 08:56 | XMS_ITS | Continuity of Care Document ---
Author Name Unknown Organization [facility] Address [address] [place] [address]- Care Team Providers Care Supply Technician Name Role Phone Alxex Walker Primary Care Physician En[place] [facility] Date(s): 04/29/20 - 06/14/[address] [address]- Attending Physician: Not on Staff, Attending MD Referring Physician: Alexx Walker Allergies, Adverse Reactions, [...] 06/02/19 Stop Date: 06/12/19 Status: Ordered CPAP Road Conductor, 10/22/18 2:06:53 EDT, Compound Start Date: 10/22/18 [...] Start Date: 10/24/18 Status: Ordered Vitamin D 50534 iu oral capsule 50,000 International_Units, 1, capsule, [...] Implanted Date:08/09/18Target Site:Arm Left Description Quantity MRI [email or web address] Model MESH PERIPATCH VASC 2X9 - LMTE (E2P9) 1 [employer] Unknown ANDREA:No Information Assigning Authority: FDA Implanted Date:10/03/16Target Site:Unknown Description Quantity MRI [email or web address] Model Artegraft, AG840, Collagen B ovine Product 1 [employer] Inc Unknown ANDREA:No Information Assigning Authority: FDA
--- OUTSIDE RECORDS SUMMARY | 2023-01-07 08:56 | XMS_ITS | Continuity of Care Document ---
Author Name Unknown Organization [facility] ter Address [address] [place] [address]- Care Team Providers Care Process Artist Name Role Phone Eugene Tinoco MD Primary Care Physician [phone] [facility] Date(s): 06/19/19 - 06/19/[address] [address]- [facility] Discharge Disposition: A-D/C Home Attending Physician: Darrian [...] 06/02/19 Stop Date: 06/12/19 Status: Ordered CPAP Retail Sales Lead, 10/22/18 2:06:53 EDT, Compound Start Date: 10/22/18 [...] 10/27/16 14:32:39 EDT, Route to Pharmacy Electronically, [id number], [facility] 3 Start Date: 10/27/16 Stop Date: [...] 06/30/19 15:01:00 EDT, 06/16/19 15:01:00 EST, Cream, [facility] [place], [place] -, 1 application Topically Daily,x14 days, 166, cm, 06/16/19 14:30:00 EST, Height, 113.1, kg... Start Date: 06/16/19 Stop Date: 06/30/19 Status: Ordered Velphoro 2500 mg (500 mg elemental iron) oral tablet, chewable 1 tablet = 500 mg, Chew, 3 times a day, WITH MEALS AND CHEW 1 TABLET WITH SNACKS (5 TABS TOTAL A DAY) Start Date: 10/24/18 Status: Ordered Vitamin D 42970 iu oral capsule 50,000 International_Units, 1, capsule, [...] to oldest [Reference Range]: 1 2 3 Height 167.5 cm (06/19/19 7:06 AM) Weight 115 kg (06/19/19 7:06 AM) Oxygen Saturation [94-100 %] 100 % (06/19/19 10:15 AM) 100 % (06/19/19 10:09 AM) 95 % (06/19/19 9:45 AM) Pulse Rate [55-90 bpm] 69 bpm (06/19/19 7:06 AM) Body Mass Index [18.5-24.99] 40.99 *>HHI* (06/19/19 7:06 AM) Blood Pressure [90-138/55-84 mm Hg] 123/76mm Hg (06/19/19 10:15 AM) 104/61mm Hg (06/19/19 10:09 AM) 113/67mm Hg (06/19/19 9:45 AM) Respiratory Rate [16-30 br/min] 18 br/min (06/19/19 10:15 AM) 18 br/min (06/19/19 10:09 AM) 20 br/min (06/19/19 9:45 AM) Temperature [96.8-100.4 DegF] 98 DegF (06/19/19 10:30 AM) 98.1 DegF (06/19/19 9:00 AM) 98.2 DegF (06/19/19 7:06 AM) Liters per Minute 10 L/min (06/19/19 9:30 AM) 6 L/min (06/19/19 9:00 AM) Mode of Delivery (Oxygen) Room air (06/19/19 10:15 AM) Room air (06/19/19 10:00 AM) Room air (06/19/19 9:45 AM) Blood pressure sites Arm, right (06/19/19 7:06 AM) Temperature Route Temporal (06/19/19 10:30 AM) Temporal (06/19/19 9:00 AM) Temporal (06/19/19 7:06 AM) Social History Social History Type Response Smoking Status Current every day colin vaca; Tobacco user in household: No; Type: Cigarettes; Tobacco use times per day: appx 1 cigarette every other day; entered on: 05/27/16 Sex Medical Equipment Implanted Date:08/09/18Target Site:Arm Left Description Quantity MRI Company Model MESH PERIPATCH VASC 2X9 - LMTE (E2P9) 1 [employer] Unknown ANDREA:No Information Assigning Authority: FDA Implanted Date:10/03/16Target Site:Unknown Description Quantity MRI Company Model Artegraft, AG840, Collagen B ovine Product 1 [employer] Unknown ANDREA:No Information Assigning Authority: FDA
--- OUTSIDE RECORDS SUMMARY | 2023-01-07 08:56 | XMS_ITS | Continuity of Care Document ---
Author Name Unknown Organization [facility] Address [address] [facility] [place] [address]- Care Team Providers Care Operations Administrator Name Role Phone Alexx Walker Primary Care Physician En[place] [facility] [place] Date(s): 05/30/20 - 06/29/20 [facility] [address] [facility] [place] [address]- Attending Physician: Katia Desir Admitting Physician: Admtr, Ar8 Referring Physician: Admtr, Ar8 Allergies, Adverse Reactions, Alerts Substance Reaction Severity [...] 06/02/19 Stop Date: 06/12/19 Status: Ordered CPAP Waste Removalist, 10/22/18 2:06:53 EDT, Compound Start Date: 10/22/18 [...] Start Date: 10/24/18 Status: Ordered Vitamin D 25170 iu oral capsule 50,000 International_Units, 1, capsule, [...] Implanted Date:08/09/18Target Site:Arm Left Description Quantity MRI Pixel[employer] Model MESH PERIPATCH VASC 2X9 - LMTE (E2P9) 1 [employer] Unknown ANDREA:No Information Assigning Authority: FDA Implanted Date:10/03/16Target Site:Unknown Description Quantity MRI PixelPlay Model Artegraft, AG840, Collagen B ovine Product 1 [employer] Inc Unknown ANDREA:No Information Assigning Authority: FDA
--- OUTSIDE RECORDS SUMMARY | 2023-01-07 08:56 | XMS_ITS | Continuity of Care Document ---
Author Name Unknown Organization [facility] Address [address] [facility] [place] [address]- Care Team Providers Care Social Work Case Manager Name Role Phone Alexx Walker Primary Care Physician Encounter [facility] Date(s): 05/27/20 - 06/29/20 [facility] [address] [facility] [place] [address]- Attending Physician: Rachana Atkins MD Referring Physician: Alexx Walker Allergies, Adverse [...] 06/02/19 Stop Date: 06/12/19 Status: Ordered CPAP Missile And Missile Checkout Technician, 10/22/18 2:06:53 EDT, Compound Start Date: 10/22/18 [...] Start Date: 10/24/18 Status: Ordered Vitamin D 03884 iu oral capsule 50,000 International_Units, 1, capsule, [...] Implanted Date:08/09/18Target Site:Arm Left Description Quantity MRI [employer] Model MESH PERIPATCH VASC 2X9 - LMTE (E2P9) 1 [employer] Unknown ANDREA:No Information Assigning Authority: FDA Implanted Date:10/03/16Target Site:Unknown Description Quantity MRI [employer] Model Artegraft, AG840, Collagen B ovine Product 1 [employer] Inc Unknown ANDREA:No Information Assigning Authority: FDA
--- OUTSIDE RECORDS SUMMARY | 2023-01-07 08:56 | XMS_ITS | Continuity of Care Document ---
Author Name Unknown Organization [facility] Address [address] [place] [address]- Care Team Providers Care Inspector Repairer Name Role Phone Alexx Walker Primary Care Physician [phone] Encounter [facility] [id number] Date(s): 12/11/21 - 01/10/[address] [address] Attending Physician: Katia Desir Admitting Physician: AdmKatia segovia Referring Physician: AdmtrKatia Allergies, Adverse Reactions, Alerts Substance Reaction Severity Status lisinopril lip/facial swelling Active shellfish swelling Active sulfa drugs 1 Rash Active Motrin can't take d/t kidneys Activ [...] 06/02/19 Stop Date: 06/12/19 Status: Ordered CPAP Lobbyist, 10/22/18 2:06:53 EDT, Compound Start Date: 10/22/18 [...] 1 tablet By Mouth Daily Start Date: 1/28/16 Status: Ordered Senexon 8.6 mg oral tablet [...] Start Date: 10/24/18 Status: Ordered Vitamin D 54608 iu oral capsule 50,000 International_Units, 1, capsule, [...] Safety Implantable Status Assigning Authority Unknown Unknown [id number] Unknown 08/14/22 Unknown Unknown Active Unk nown Procedure Provider Procedure Date Device Type Site Creation of Arteriovenous Fistula Unknown 10/03/16 Un known Unknown Device Identifier Serial Number Lot or Batch Number Manufacturing Date Expiration Date Distinct Identification Code MRI Safety Implantable Status Assigning Authority Unknown Unknown [id number] Unknown 04/18/19 Unknown Unknown Active Unknown Care Team Personnel Name: Alexx Walker Address: [address] [place] [address]
--- OUTSIDE RECORDS SUMMARY | 2023-01-07 08:57 | XMS_ITS | Continuity of Care Document ---
Author Name Unknown Organization [facility] Address [address] [place] [address] Dr [address] [place] [address]- Care Team Providers Care Assistant Spa Manager Name Role Phone Eugene Tinoco MD Primary Care Physician Encounter [place] Date(s): 05/22/19 - 06/01/[address] [place] [address]- [facility] Attending Physician: Katia Desir Admitting Physician: [...] EST Start Date: 05/17/18 Status: Ordered CPAP Director Of Front Office, 10/22/18 2:06:53 EDT, Compound Start Date: 10/22/18 [...] 10/27/16 14:32:39 EDT, Route to Pharmacy Electronically, [id number], [facility] 3 Start Date: 10/27/16 Stop Date: [...] Start Date: 10/24/18 Status: Ordered Vitamin D 74642 iu oral capsule 50,000 International_Units, 1, capsule, [...] PERIPATCH VASC 2X9 - LMTE (E2P9) 1 [employer] Unknown ANDREA:No Information Assigning Authority: FDA Implanted Date:10/03/16Target Site:Unknown Description Quantity MRI [employer] Model Artegraft, AG840, Collagen B ovine Product 1 [employer] Unknown ANDREA:No Information Assigning Authority: FDA
--- OUTSIDE RECORDS SUMMARY | 2023-01-07 08:57 | XMS_ITS | Continuity of Care Document ---
Author Name Unknown Organization [facility] Address [address] [place] [address]- Care Team Providers Care Fire Alarm Operator Name Role Phone Alexx Walker Primary Care Physician Encounter [facility] [place] Date(s): 02/28/21 - 03/30/[address] [address] Attending Physician: Katia Desir Admitting Physician: Admtr, James8 Referring Physician: Admtr, Ar8 Allergies, Adverse Reactions, [...] 06/02/19 Stop Date: 06/12/19 Status: Ordered CPAP Tour Leader, 10/22/18 2:06:53 EDT, Compound Start Date: 10/22/18 [...] Start Date: 10/24/18 Status: Ordered Vitamin D 22258 iu oral capsule 50,000 International_Units, 1, capsule, [...] Implanted Date:08/09/18Target Site:Arm Left Description Quantity MRI Disconnect Model MESH PERIPATCH VASC 2X9 - LMTE (E2P9) 1 [employer] Unknown ANDREA:No Information Assigning Authority: FDA Implanted Date:10/03/16Target Site:Unknown Description Quantity [employer] Model Artegraft, AG840, Collagen B ovine Product 1 [employer] Unknown ANDREA:No Information Assigning Authority: FDA
--- OUTSIDE RECORDS SUMMARY | 2023-01-07 08:57 | XMS_ITS | Continuity of Care Document ---
Author Name Unknown Organization [facility] Address [address] [place] [address]- Care Team Providers Care Hoop Expander Name Role Phone Alexx Walker Primary Care Physician [phone] Encounter [facility] Date(s): 05/29/20 - 05/29/[address] [address] Discharge Disposition: A-D/C Home Attending Physician: Christiane Garay MD Admitting Physician: Christiane Garay MD Referring Physician: Christiane Garay MD Allergies, Adverse Reactions, Alerts Substance Reaction [...] 06/02/19 Stop Date: 06/12/19 Status: Ordered CPAP Groover And Striper Operator, 10/22/18 2:06:53 EDT, Compound Start Date: [...] Start Date: 10/24/18 Status: Ordered Vitamin D 56655 iu oral capsule 50,000 International_Units, 1, capsule, [...] [Reference Range]: 1 2 3 4 Weight 109 kg (05/29/20 2:11 PM) Oxygen Saturation [94-100 %] 100 % (05/29/20 6:30 PM) 100 % (05/29/20 6:30 PM) 99 % (05/29/20 6:15 PM) 99 % (05/29/20 6:15 PM) Pulse Rate [55-90 bpm] 78 bpm (05/29/20 2:11 PM) Systolic Blood Pressure [90-138 mm Hg] 153 mm Hg *H* (05/29/20 6:30 PM) 153 mm Hg *H* (05/29/20 6:30 PM) 147 mm Hg *H* (05/29/20 6:15 PM) 147 mm Hg *H* (05/29/20 6:15 PM) Diastolic Blood Pressure [55-84 mm Hg] 79 mm Hg (05/29/20 6:30 PM) 79 mm Hg (05/29/20 6:30 PM) 68 mm Hg (05/29/20 6:15 PM) 68 mm Hg (05/29/20 6:15 PM) Respiratory Rate [16-30 br/min] 15 br/min *L* (05/29/20 6:30 PM) 15 br/min *L* (05/29/20 6:30 PM) 14 br/min *L* (05/29/20 6:15 PM) 14 br/min *L* (05/29/20 6:15 PM) Temperature [96.8-100.4 DegF] 97.9 DegF (05/29/20 6:15 PM) 97.3 DegF (05/29/20 5:25 PM) 97.8 DegF (05/29/20 2:11 PM) Liters per Minute 5 L/min (05/29/20 5:30 PM) 5 L/min (05/29/20 5:25 PM) Mode of Delivery (Oxygen) Room air (05/29/20 6:30 PM) Room air (05/29/20 6:15 PM) Room air (05/29/20 6:00 PM) Blood pressure sites Arm, right (05/29/20 6:30 PM) Arm, right (05/29/20 6:15 PM) Arm, right (05/29/20 6:00 PM) Temperature Route Temporal (05/29/20 6:15 PM) Temporal (05/29/20 5:25 PM) Temporal (05/29/20 2:11 PM) Weight Obtained Via Standing scale (05/29/20 2:11 PM) Social History Social History Type Response Smoking Status Current every day sm oker; Tobacco user in household: No; Type: Cigarettes; Tobacco use times per day: appx 1 cigarette every other day; entered on: 05/27/16 Sex Medical Equipment Implanted Date:08/09/18Target Site:Arm Left Description Quantity MRI [employer] Model MESH PERIPATCH VASC 2X9 - LMTE (E2P9) 1 [employer] Unknown ANDREA:No Information Assigning Authority: FDA Implanted Date:10/03/16Target Site:Unknown Description Quantity MRI [employer] Model Artegraft, AG840, Collagen B ovine Product 1 [employer] Unknown ANDREA:No Information Assigning Authority: FDA
--- OUTSIDE RECORDS SUMMARY | 2023-01-07 08:57 | XMS_ITS | Continuity of Care Document ---
Author Name Unknown Organization [facility] Address [address] [place] [address] [address] [place] [address]- Care Team Providers Care Fountain Roller Assembler Name Role Phone Eugene Tinoco MD Primary Care Physician [id number] Date(s): 06/09/19 - 06/16/[address] [place] [address]- [facility] Attending Physician: Jasvir Mcbride MD Allergies, Adverse [...] 06/02/19 Stop Date: 06/12/19 Status: Ordered CPAP Grain Drier, 10/22/18 2:06:53 EDT, Compound Start Date: 10/22/18 [...] 10/27/16 14:32:39 EDT, Route to Pharmacy Electronically, [id number], [facility] 3 Start Date: 10/27/16 Stop Date: 12/10/16 [...] 06/30/19 15:01:00 EDT, 06/16/19 15:01:00 EST, Cream, [facility] [place], [place] -, 1 application Topically Daily,x14 days, 166, cm, 06/16/19 14:30:00 EST, Height, 113.1, kg... Start Date: 06/16/19 Stop Date: 06/30/19 Status: Ordered Velphoro 2500 mg (500 mg elemental iron) oral tablet, chewable 1 tablet = 500 mg, Chew, 3 times a day, WITH MEALS AND CHEW 1 TABLET WITH SNACKS (5 TABS TOTAL A DAY) Start Date: 10/24/18 Status: Ordered Vitamin D 03718 iu oral capsule 50,000 International_Units, 1, capsule, By Mouth, Daily, on dialysis days Start Date: 10/24/18 Status: Ordered Zofran 4 mg oral tablet 1 tablet = 4 mg, By Mouth, Every 6 hours, PRN as needed for nausea/vomiting, 0 Refills, Maintenance, 11/18/18 2:21:03 EST, Tablet Start Date: 03/06/18 Status: [...] oldest [Reference Range]: 1 Height 166 cm (06/09/19 1:09 PM) Pulse Rate [55-90 bpm] 84 bpm (06/09/19 1:09 PM) Blood Pressure [90-138/55-84 mm Hg] 130/ 100mm Hg (06/09/19 1:09 PM) Respiratory Rate [16-30 br/min] 18 br/mi n (06/09/19 1:09 PM) Temperature [96.8-100.4 DegF] 97.8 DegF (06/09/19 1:09 PM) Blood pressure sites Arm, right (06/09/19 1:09 PM) Temperature Route Temporal (06/09/19 1:09 PM) Social History Social History Type Response Smoking Status Current every day sm oker; Tobacco user in household: No; Type: Cigarettes; Tobacco use times per day: appx 1 cigarette every other day; entered on: 05/27/16 Sex Medical Equipment Implanted Date:08/09/18Target Site:Arm Left Description Quantity MRI Countdown To Buy Model MESH PERIPATCH VASC 2X9 - LMTE (E2P9) 1 [employer] Unknown ANDREA:No Information Assigning Authority: FDA Implanted Date:10/03/16Target Site:Unknown Description Quantity MRI Countdown To Buy Model Artegraft, AG840, Collagen B ovine Product 1 [employer] Unknown ANDREA:No Information Assigning Authority: FDA
--- OUTSIDE RECORDS SUMMARY | 2023-01-07 08:57 | XMS_ITS | Continuity of Care Document ---
Author Name Unknown Organization [facility] ter Address [address] [place] [address]- Care Team Providers Care Public Health Clinical Nurse Specialist Name Role Phone Alexx Walker Primary Care Physician Encounter [facility] Date(s): 09/05/20 - 09/05/[address] [address] Discharge Disposition: A-D/C Home Attending Physician: Darrian [...] 06/02/19 Stop Date: 06/12/19 Status: Ordered CPAP Account Resolution Specialist, 10/22/18 2:06:53 EDT, Compound Start Date: 10/22/18 [...] request Start Date: 04/28/19 Status: Ordered oxyCODONE 5 mg oral tablet 5 mg, 1, tablet, By Mouth, Every 6 hours, PRN, for 3 days, start with tylenol, # 10 tablet, Refills0, Tot. Refills 0, Acute 09/08/20 11:49:00 EDT, as needed for pain, 09/05/20 11:49:00 EDT, Route toPharmacy Electronically, [facility]... Start Date: 09/05/20 Stop Date: 09/08/20 Status: Ordered Protonix 40 mg oral delayed [...] Start Date: 10/24/18 Status: Ordered Vitamin D 00453 iu oral capsule 50,000 International_Units, 1, capsule, [...] oldest [Reference Range]: 1 2 3 Weight 113.9 kg (09/05/20 8:40 AM) Oxygen Saturation [94-100 %] 98 % (09/05/20 11:45 AM) 99 % (09/05/20 11:30 AM) 100 % (09/05/20 8:40 AM) Pulse Rate [55-90 bpm] 69 bpm (09/05/20 8:40 AM) Blood Pressure [90-138/55-84 mm Hg] 149/77mm Hg *H* (09/05/20 11:45 AM) 149/66mm Hg *H* (09/05/20 11:30 AM) 135/80mm Hg (09/05/20 8:40 AM) Respiratory Rate [16-30 br/min] 21 br/min (09/05/20 11:45 AM) 13 br/min *L* (09/05/20 11:30 AM) 11 br/min *L* (09/05/20 8:40 AM) Temperature [96.8-100.4 DegF] 97.4 DegF (09/05/20 12:00 PM) 97.4 DegF (09/05/20 11:30 AM) 97.6 DegF (09/05/20 8:40 AM) Mode of Delivery (Oxygen) Room air (09/05/20 11:45 AM) Room air (09/05/20 11:30 AM) Room air (09/05/20 8:40 AM) Blood pressure sites Leg, left (09/05/20 11:45 AM) Leg, left (09/05/20 11:30 AM) Temperature Route Temporal (09/05/20 12:00 PM) Temporal (09/05/20 11:30 AM) Temporal (09/05/20 8:40 AM) Social History Social History Type Response Smoking Status Current every day sm oker; Tobacco user in household: No; Type: Cigarettes; Tobacco use times per day: appx 1 cigarette every other day; entered on: 05/27/16 Sex Medical Equipment Implanted Date:08/09/18Target Site:Arm Left Description Quantity MRI Company Model MESH PERIPATCH VASC 2X9 - LMTE (E2P9) 1 [employer] Unknown ANDREA:No Information Assigning Authority: FDA Implanted Date:10/03/16Target Site:Unknown Description Quantity MRI Company Model Artegraft, AG840, Collagen B ovine Product 1 [employer] Unknown ANDREA:No Information Assigning Authority: FDA
--- OUTSIDE RECORDS SUMMARY | 2023-01-07 08:57 | XMS_ITS | Continuity of Care Document ---
Author Name Unknown Organization [facility] Address [address] [place] [address]- Care Team Providers Care Plant Guide Name Role Phone Alexx Walker Primary Care Physician Encounter [facility] Date(s): 10/07/21 - 11/06/[address] [address] Allergies, Adverse Reactions, Alerts Substance [...] 06/02/19 Stop Date: 06/12/19 Status: Ordered CPAP Clinical Appeals Auditor, 10/22/18 2:06:53 EDT, Compound Start Date: 10/22/18 [...] Start Date: 10/24/18 Status: Ordered Vitamin D 57481 iu oral capsule 50,000 International_Units, 1, capsule, [...] PERIPATCH VASC 2X9 - LMTE (E2P9) 1 [email or web address] Unknown ANDREA:No Information Assigning Authority: FDA Implanted Date:10/03/16Target Site:Unknown Description Quantity MRI [facility] Model Artegraft, AG840, Collagen B ovine Product 1 [employer] Inc Unknown ANDREA:No Information Assigning Authority: FDA
--- OUTSIDE RECORDS SUMMARY | 2023-01-07 08:57 | XMS_ITS | Continuity of Care Document ---
Author Name Unknown Organization [facility] Address [address] [place] [address] Dr [address] [place] [address]- Care Team Providers Care Supervisor Tank Cleaning Name Role Phone Eugene Tinoco MD Primary Care Physician [phone] Encounter [facility] Date(s): 05/22/19 - 05/29/[address] [place] [address]- [facility] Attending Physician: Jasvir Mcbride MD Allergies, Adverse [...] EST Start Date: 05/17/18 Status: Ordered CPAP Vision Teacher, 10/22/18 2:06:53 EDT, Compound Start Date: [...] 10/27/16 14:32:39 EDT, Route to Pharmacy Electronically, [id number], [facility] 3 Start Date: 10/27/16 Stop Date: 12/10/16 [...] Start Date: 10/24/18 Status: Ordered Vitamin D 91574 iu oral capsule 50,000 International_Units, 1, capsule, [...] recent to oldest [Reference Range]: 1 Height 167 cm (2/3/20 1:50 PM) Weight 114.4 kg (05/22/19 1:50 PM) Pulse Rate [55-90 bpm] 83 bpm (05/22/19 1:50 PM) Body Mass Index [18.5-24.99] 41.02 *>HHI* (05/22/19 1:50 PM) Blood Pressure [90-138/55-84 mm Hg] 140/ 77mm Hg *H* (05/22/19 1:50 PM) Temperature [96.8-100.4 DegF] 98.8 DegF (05/22/19 1:50 PM) Blood pressure sites Arm, right (05/22/19 1:50 PM) Temperature Route Temporal (05/22/19 1:50 PM) Social History Social History Type Response Smoking Status Current every day colin vaca; Tobacco user in household: No; Type: Cigarettes; Tobacco use times per day: appx 1 cigarette every other day; entered on: 05/27/16 Sex Medical Equipment Implanted Date:08/09/18Target Site:Arm Left Description Quantity MRI Company Model MESH PERIPATCH VASC 2X9 - LMTE (E2P9) 1 [employer] Unknown ANDREA:No Information Assigning Authority: FDA Implanted Date:10/03/16Target Site:Unknown Description Quantity MRI Company Model Artegraft, AG840, Collagen B ovine Product 1 [employer] Unknown ANDREA:No Information Assigning Authority: FDA
--- OUTSIDE RECORDS SUMMARY | 2023-01-07 08:57 | XMS_ITS | Continuity of Care Document ---
Author Name Unknown Organization [facility] ter Address [address] [place] [address]- Care Team Providers Care Horse Trainer Name Role Phone Eugene Tinoco MD Primary Care Physician [phone] Encounter [facility] Date(s): 06/02/19 - 06/02/[address] [address]- [facility] Discharge Disposition: A-D/C Home Attending Physician: Jasvir Mcbride MD Admitting Physician: Jasvir Mcbride MD Referring Physician: Jasvir Mcbride MD Allergies, Adverse Reactions, [...] 06/02/19 Stop Date: 06/12/19 Status: Ordered CPAP Turning Lathe Tender, 10/22/18 2:06:53 EDT, Compound Start Date: 10/22/18 [...] 10/27/16 14:32:39 EDT, Route to Pharmacy Electronically, [id number], [facility] 3 Start Date: 10/27/16 Stop [...] 2:32:59, Tablet Start Date: 05/02/17 Status: Ordered Tylenol Extra Strength 500 mg oral tablet 2 tablet = 1,000 mg, By Mouth, Every 4 hours, PRN for pain, for 5 days, # 24 tablet, 0 Refills, Acute 06/07/19 10:24:00 EST, 06/02/19 10:24:00 EST, Tablet Start Date: 06/02/19 Stop Date: 06/07/19 Status: Ordered Velphoro 2500 mg (500 mg elemental iron) oral tablet, chewable 1 tablet = 500 mg, Chew, 3 times a day, WITH MEALS AND CHEW 1 TABLET WITH SNACKS (5 TABS TOTAL A DAY) Start Date: 10/24/18 Status: Ordered Vitamin D 39109 iu oral capsule 50,000 International_Units, 1, capsule, [...] oldest [Reference Range]: 1 2 3 Height 166 cm (06/02/19 8:11 AM) Weight 113.1 kg (06/02/19 8:11 AM) Oxygen Saturation [94-100 %] 100 % (06/02/19 11:30 AM) 89 % *L* (06/02/19 11:15 AM) 98 % (06/02/19 11:00 AM) Pulse Rate [55-90 bpm] 72 bpm (06/02/19 8:11 AM) Body Mass Index [18.5-24.99] 41.04 *>HHI* (06/02/19 8:11 AM) Blood Pressure [90-138/55-84 mm Hg] 106/51mm Hg (06/02/19 11:30 AM) 123/52mm Hg (06/02/19 11:00 AM) 128/60mm Hg (06/02/19 10:45 AM) Respiratory Rate [16-30 br/min] 18 br/min (06/02/19 11:30 AM) 23 br/min (06/02/19 11:21 AM) 0 br/min *L* (06/02/19 11:15 AM) Temperature [96.8-100.4 DegF] 98.2 DegF (06/02/19 11:15 AM) 97 DegF (06/02/19 10:15 AM) 98.7 DegF (06/02/19 8:11 AM) Liters per Minute 8 L/min (06/02/19 10:15 AM) Mode of Delivery (Oxygen) Room air (06/02/19 2:50 PM) Room air (06/02/19 11:30 AM) Room air (06/02/19 11:15 AM) Blood pressure sites Arm, right (06/02/19 8:11 AM) Temperature Route Temporal (06/02/19 11:15 AM) Temporal (06/02/19 10:15 AM) Temporal (06/02/19 8:11 AM) Dry Weight 113.1 kg (06/02/19 8:11 AM) Social History Social History Type Response Smoking Status Current every day sm oker; Tobacco user in household: No; Type: Cigarettes; Tobacco use times per day: appx 1 cigarette every other day; entered on: 05/27/16 Sex Medical Equipment Implanted Date:08/09/18Target Site:Arm Left Description Quantity MRI [employer] Model MESH PERIPATCH VASC 2X9 - LMTE (E2P9) 1 [employer] Unknown ANDREA:No Information Assigning Authority: FDA Implanted Date:10/03/16Target Site:Unknown Description Quantity MRI [employer] Model Artegraft, AG840, Collagen B ovine Product 1 [employer] Unknown ANDREA:No Information Assigning Authority: FDA
--- OUTSIDE RECORDS SUMMARY | 2023-01-07 08:57 | XMS_ITS | Continuity of Care Document ---
Author Name Unknown Organization [facility] Address [address] [place] [address] Dr ve [address] [place] [address]- Care Team Providers Care Solutions Executive Cloud Sales Name Role Phone Eugene Tinoco MD Primary Care Physician Encounter [facility] Date(s): 06/30/19 - 07/07/[address] [place] [address]- [facility] Attending Physician: Jasvir Mcbride MD Allergies, Adverse [...] 06/02/19 Stop Date: 06/12/19 Status: Ordered CPAP Cafeteria Aide, 10/22/18 2:06:53 EDT, Compound Start Date: 10/22/18 [...] 10/27/16 14:32:39 EDT, Route to Pharmacy Electronically, [id number], [facility] 3 Start Date: 10/27/16 Stop [...] Start Date: 10/24/18 Status: Ordered Vitamin D 60543 iu oral capsule 50,000 International_Units, 1, capsule, [...] recent to oldest [Reference Range]: 1 Height 167.5 cm (06/30/19 1:20 PM) Pulse Rate [55-90 bpm] 80 bpm (06/30/19 1:20 PM) Blood Pressure [90-138/55-84 mm Hg] 134/ 81mm Hg (06/30/19 1:20 PM) Temperature [96.8-100.4 DegF] 97.9 DegF (06/30/19 1:20 PM) Blood pressure sites Arm, right (06/30/19 1:20 PM) Temperature Route Temporal (06/30/19 1:20 PM) Social History Social History Type Response Smoking Status Current every day sm oker; Tobacco user in household: No; Type: Cigarettes; Tobacco use times per day: appx 1 cigarette every other day; entered on: 05/27/16 Sex Medical Equipment Implanted Date:08/09/18Target Site:Arm Left Description Quantity MRI [employer] Model MESH PERIPATCH VASC 2X9 - LMTE (E2P9) 1 [employer] Unknown ANDREA:No Information Assigning Authority: FDA Implanted Date:10/03/16Target Site:Unknown Description Quantity MRI [employer] Model Artegraft, AG840, Collagen B ovine Product 1 [employer] Unknown ANDREA:No Information Assigning Authority: FDA
--- OUTSIDE RECORDS SUMMARY | 2023-01-07 08:57 | XMS_ITS | Continuity of Care Document ---
Author Name Unknown Organization [facility] Address [address] [place] [address]- Care Team Providers Care Jacquard Card Cutter Name Role Phone Alexx Walker Primary Care Physician [phone] Encounter [facility] [place] Date(s): 12/09/21 - 01/08/[address] [address] Attending Physician: Katia Desir Admitting Physician: Katia Desir Referring Physician: Katia Desir Allergies, Adverse Reactions, Alerts Substance Reaction Severity [...] 06/02/19 Stop Date: 06/12/19 Status: Ordered CPAP Technician Helper Instrument, 10/22/18 2:06:53 EDT, Compound Start Date: 10/22/18 [...] Start Date: 10/24/18 Status: Ordered Vitamin D 58300 iu oral capsule 50,000 International_Units, 1, capsule, [...] Safety Implantable Status Assigning Authority Unknown Unknown [id number] Unknown 4/28/23 Unknown Unknown Active Unk nown Procedure Provider Procedure Date Device Type Site Creation of Arteriovenous Fistula Unknown 10/03/16 Un known Unknown Device Identifier Serial Number Lot or Batch Number Manufacturing Date Expiration Date Distinct Identification Code MRI Safety Implantable Status Assigning Authority Unknown Unknown [id number] Unknown 04/18/19 Unknown Unknown Active Unknown Care Team Personnel Name: Alexx Walker Address: [address] [place] [address]
--- OUTSIDE RECORDS SUMMARY | 2023-01-07 08:57 | XMS_ITS | Continuity of Care Document ---
Author Name Unknown Organization [facility] Address [address] [place] [address] [address] [place] [address]- Care Team Providers Care Top Flavor Attendant Name Role Phone Eugene Tinoco MD Primary Care Physician Encounter [id number] Date(s): 04/28/19 - 05/05/[address] [place] [address]- [facility] Attending Physician: Jasvir Mcbride MD Referring Physician: Eugene Tinoco MD Allergies, Adverse Reactions, Alerts Substance Reaction [...] EST Start Date: 05/17/18 Status: Ordered CPAP Story Teller, 10/22/18 2:06:53 EDT, Compound Start Date: 10/22/18 [...] 10/27/16 14:32:39 EDT, Route to Pharmacy Electronically, [id number], [facility] 3 Start Date: [...] Start Date: 10/24/18 Status: Ordered Vitamin D 62503 iu oral capsule 50,000 International_Units, 1, capsule, [...] oldest [Reference Range]: 1 Height 167 cm (04/28/19 2:55 PM) Pulse Rate [55-90 bpm] 90 bpm (04/28/19 2:55 PM) Blood Pressure [90-138/55-84 mm Hg] 143/ 73mm Hg *H* (04/28/19 2:55 PM) Respiratory Rate [16-30 br/min] 18 br/mi n (04/28/19 2:55 PM) Temperature [96.8-100.4 DegF] 97.9 DegF (04/28/19 2:55 PM) Blood pressure sites Arm, left (04/28/19 2:55 PM) Temperature Route Temporal (04/28/19 2:55 PM) Social History Social History Type Response Smoking Status Current every day sm nola; Tobacco user in household: No; Type: Cigarettes; Tobacco use times per day: appx 1 cigarette every other day; entered on: 05/27/16 Sex Medical Equipment Implanted Date:08/09/18Target Site:Arm Left Description Quantity MRI [employer] Model MESH PERIPATCH VASC 2X9 - LMTE (E2P9) 1 [employer] Unknown ANDREA:No Information Assigning Authority: FDA Implanted Date:10/03/16Target Site:Unknown Description Quantity MRI [employer]. Model Artegraft, AG840, Collagen B ovine Product 1 [employer] Unknown ANDREA:No Information Assigning Authority: FDA
--- OUTSIDE RECORDS SUMMARY | 2023-01-07 08:57 | XMS_ITS | Continuity of Care Document ---
Author Name Unknown Organization [facility] ter Address [address] [place] [address]- Care Team Providers Care Line Haul Driver Name Role Phone Eugene Tinoco MD Primary Care Physician Encounter [facility] Date(s): 07/26/19 - 07/26/[address] [address]- [facility] Discharge Disposition: A-D/C Home Attending Physician: Justin Cohen MD Admitting Physician: Justin Cohen MD Referring Physician: Justin Cohen MD Allergies, Adverse Reactions, Alerts Substance Reaction [...] 06/02/19 Stop Date: 06/12/19 Status: Ordered CPAP Social Service Manager, 10/22/18 2:06:53 EDT, Compound Start Date: [...] 10/27/16 14:32:39 EDT, Route to Pharmacy Electronically, [id number], [facility] 3 Start [...] Start Date: 10/24/18 Status: Ordered Vitamin D 07434 iu oral capsule 50,000 International_Units, 1, capsule, [...] oldest [Reference Range]: 1 2 3 Weight 111.5 kg (07/26/19 9:56 AM) Oxygen Saturation [94-100 %] 100 % (07/26/19 1:45 PM) 100 % (07/26/19 1:30 PM) 100 % (07/26/19 1:15 PM) Pulse Rate [55-90 bpm] 66 bpm (07/26/19 9:56 AM) Blood Pressure [90-138/55-84 mm Hg] 107/50mm Hg (07/26/19 1:15 PM) 106/46mm Hg (07/26/19 1:00 PM) 106/54mm Hg (07/26/19 9:56 AM) Respiratory Rate [16-30 br/min] 18 br/min (07/26/19 1:30 PM) 17 br/min (07/26/19 1:15 PM) 16 br/min (07/26/19 1:00 PM) Temperature [96.8-100.4 DegF] 96.9 DegF (07/26/19 1:00 PM) 97.6 DegF (07/26/19 9:56 AM) Liters per Minute 6 L/min (07/26/19 1:00 PM) Mode of Delivery (Oxygen) Room air (07/26/19 1:45 PM) Room air (07/26/19 1:15 PM) Simple face mask (07/26/19 1:00 PM) Blood pressure sites Arm, right (07/26/19 1:00 PM) Arm, right (07/26/19 9:56 AM) Temperature Route Temporal (07/26/19 1:00 PM) Temporal (07/26/19 9:56 AM) Dry Weight 111.5 kg (07/26/19 9:56 AM) Weight Obtained Via Standing scale (07/26/19 9:56 AM) Dry Weight Obtained Via Standing scale (07/26/19 9:56 AM) Social History Social History Type Response Smoking Status Current every day sm oker; Tobacco user in household: No; Type: Cigarettes; Tobacco use times per day: appx 1 cigarette every other day; entered on: 05/27/16 Sex Medical Equipment Implanted Date:08/09/18Target Site:Arm Left Description Quantity MRI [employer] Model MESH PERIPATCH VASC 2X9 - LMTE (E2P9) 1 [employer] Unknown ANDREA:No Information Assigning Authority: FDA Implanted Date:10/03/16Target Site:Unknown Description Quantity MRI [employer] Model Artegraft, AG840, Collagen B ovine Product 1 [employer] Unknown ANDREA:No Information Assigning Authority: FDA
--- OUTSIDE RECORDS SUMMARY | 2023-01-07 08:57 | XMS_ITS | Continuity of Care Document ---
Author Name Unknown Organization [facility] Address [address] [place] [address]- Care Team Providers Care Wage And Salary Specialist Name Role Phone Alexx Walker Primary Care Physician Encounter [facility] Date(s): 06/28/20 - 07/28/[address] [address]- Attending Physician: Katia Desir Admitting Physician: AdmKatia [...] 06/02/19 Stop Date: 06/12/19 Status: Ordered CPAP Ebd Teacher, 10/22/18 2:06:53 EDT, Compound Start Date: [...] Start Date: 10/24/18 Status: Ordered Vitamin D 21148 iu oral capsule 50,000 International_Units, 1, capsule, [...] Implanted Date:08/09/18Target Site:Arm Left Description Quantity MRI [employer] Model MESH PERIPATCH VASC 2X9 - LMTE (E2P9) 1 [employer] Unknown ANDREA:No Information Assigning Authority: FDA Implanted Date:10/03/16Target Site:Unknown Description Quantity MRI Company Model [employer], AG840, Collagen B ovine Product 1 [employer] Unknown ANDREA:No Information Assigning Authority: FDA
--- OUTSIDE RECORDS SUMMARY | 2023-01-07 08:57 | XMS_ITS | Continuity of Care Document ---
Author Name Unknown Organization [facility] Address [address] [place] [address]- Care Team Providers Care Speech Language Pathology Assistant Name Role Phone Alexx Walker Primary Care Physician [place] [id number] Date(s): 09/10/21 - 01/08/[address] [address]- Attending Physician: Susanne Patrick MD Admitting Physician: Susanne Patrick MD Referring Physician: Alexx Walker Allergies, Adverse [...] 06/02/19 Stop Date: 06/12/19 Status: Ordered CPAP Take Out Waiter, 10/22/18 2:06:53 EDT, Compound Start Date: 10/22/18 [...] Start Date: 10/24/18 Status: Ordered Vitamin D 96371 iu oral capsule 50,000 International_Units, 1, capsule, [...] Safety Implantable Status Assigning Authority Unknown Unknown [id number] Unknown 08/14/22 Unknown Unknown Active Unk nown Procedure Provider Procedure Date Device Type Site Creation of Arteriovenous Fistula Unknown 10/03/16 Un known Unknown Device Identifier Serial Number Lot or Batch Number Manufacturing Date Expiration Date Distinct Identification Code MRI Safety Implantable Status Assigning Authority Unknown Unknown [id number] Unknown 04/18/19 Unknown Unknown Active Unknown Care Team Personnel Name: Alexx Walker Address: [address] [place] [address] [address] [place] [id number]
--- NOTE | 2023-01-07 09:03 | ED.GENADULT ---
HPI - General Adult General Chief complaint: General Medical Stated complaint: muscle spasms Time Seen by Provider: 01/07/23 09:02 Source: patient Mode of arrival: ambulatory Limitations: no limitations History of Present Illness HPI narrative: 47 yo female with history of DM2, anxiety, anemia, ESRD s/p kidney transplant now w/ CKD, asthma, obesity, s/p left shoulder replacement at [facility] a few months ago who presents to the ER for evaluation of muscle spasms and tightness in her neck and upper back for the last 1 week. 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 Pain is worse with movement of her shoulders and neck. No trauma or falls. No headaches. She has been taking tylenol and using ice with minimal relief. MD complaint: muscle spasms in neck and upper back Onset (ago): week(s) (1) Location: neck and back Radiation: non-radiation Severity: moderate Severity scale (1-10): 7 Quality: aching Pain Consistency: constant Exacerbating factors: movement Associated symptoms: denies other symptoms Treatments prior to arrival: none Related Data Home Medications Medication Instructions Recorded Confirmed amlodipine 10 mg tablet 1 tab PO DAILY 11/30/20 08/26/22 calcitriol 0.5 mcg capsule 1 cap PO DAILY 11/30/20 08/26/22 docusate sodium 100 mg capsule 1 cap PO BID 11/30/20 08/26/22 (Dulcolax Stool Softener (docusate)) pantoprazole 20 mg tablet,delayed 1 tab PO DAILY 11/30/20 08/26/22 release folic acid 1 mg tablet 1 mg PO DAILY 12/19/20 08/26/22 mycophenolate mofetil 250 mg 500 mg PO BID 12/19/20 08/26/22 capsule (CellCept) prednisone 5 mg tablet 5 mg PO DAILY 12/19/20 08/26/22 sennosides 8.6 mg tablet (senna) 8.6 mg PO BID 12/19/20 08/26/22 etonogestrel 68 mg subdermal 68 mg subdermal DAILY 06/18/21 08/26/22 implant (Nexplanon) sodium bicarbonate 650 mg tablet 1,300 mg PO TID PRN Acid Reflux 06/18/21 08/26/22 albuterol sulfate 90 mcg/actuation 90 mcg inhalation DAILY 07/30/21 08/26/22 aerosol inhaler (Ventolin HFA) famotidine 20 mg tablet (Pepcid) 20 mg PO DAILY 07/30/21 08/26/22 tacrolimus 1 mg capsule, 3 mg PO Q12H 07/30/21 08/26/22 immediate-release tacrolimus 5 mg capsule, 10 mg PO Q12H 07/30/21 08/26/22 immediate-release dulaglutide 1.5 mg/0.5 mL mg subcut 11/26/21 08/26/22 subcutaneous pen injector (Trulicity) Previous Rx's Medication Instructions Recorded acetaminophen 650 mg 650 mg PO Q12H 30 days #60 tabs 12/19/20 tablet,extended release albuterol sulfate 2.5 mg/3 mL 2.5 mg (3 mL) inhalation Q6H PRN 03/05/22 (0.083 %) solution for nebulization shortness of breath or wheezing 15 days #180 mL nebulizers (AeroEclipse II #1 ea 03/05/22 Nebulizer) lorazepam 0.5 mg tablet 0.5 mg PO DAILY anxiety 2 days #2 08/26/22 tabs oxycodone 5 mg tablet 10 mg (2 x 5 mg) PO Q8H pain 7 09/07/22 days #42 tabs apixaban 2.5 mg tablet (Eliquis) 2.5 mg PO BID #60 tabs 10/26/22 oxycodone-acetaminophen 5 mg-325 1 tab PO Q6H PRN severe pain 01/07/23 mg tablet (Percocet) (scale score 7-10) #8 tabs tizanidine 4 mg tablet 4 mg PO Q8H PRN muscle spasticity 01/07/23 #14 tabs Allergies Allergy/AdvReac Type Severity Reaction Status Date / Time lisinopril [LISINOPRIL] Allergy Intermediate EYES SWELL Verified 01/07/23 08:03 SHUT, angioedema, angioedema tramadol [TRAMADOL] Allergy Intermediate HIVES Verified 01/07/23 08:03 piperacillin [Zosyn] Allergy Mild rash Verified 01/07/23 08:03 cefazolin Allergy Unknown Unknown Verified 01/07/23 08:03 hydrocodone [From VICODIN] Allergy Unknown UNKNOWN Verified 01/07/23 08:03 ibuprofen [From Motrin] Allergy Unknown Unknown Verified 01/07/23 08:03 shellfish derived Allergy Unknown Unknown Verified 01/07/23 08:03 Sulfa (Sulfonamide Allergy Unknown UNKNOWN Verified 01/07/23 08:03 Antibiotics) [SULFA (SULFONAMIDE ANTIBIOTICS)] vancomycin Allergy Unknown rash Verified 01/07/23 08:03 azithromycin AdvReac Intermediate dizziness/A Verified 01/07/23 08:03 KI Review of Systems Review of Systems: Yes all other systems are reviewed and are negative [facility] Past Medical History Medical History Ankylosing spondylitis of lumbar region Chronic kidney disease History of pulmonary embolism Right lumbar radiculopathy Surgical History Hx of bilateral breast reduction surgery S/P kidney transplant Status post dialysis Family History Family History Mother No problems noted. Father No problems noted. Social History Social History Household Members: None Housing: Apartment Are you a primary health care recruiter to a significant other at home: No Do you presently have visiting nurse or other home services: No Alcohol intake: never Patient Tobacco Use Status: Former Tobacco user Years Smoked: 15 e-Cigarette/Vaping Use: Never Used Second Hand Smoke Exposure: No Advance Directives: No Advance Directives Date on File: 02/26/20 service: No Current occupational status: disabled Gender identity: Female Cognitive needs: No Hearing needs: No Vision needs: Yes (Glasses) Physical Exam ED Vital Signs: Vital Signs - 24 hr 01/07/23 08:03 Temperature 98 F Pulse Rate 83 Respiratory Rate 19 Blood Pressure 158/84 H Pulse Oximetry 98 Oxygen Delivery Method Room Air BMI result Body Mass Index 37.1 Appearance: Alert. Oriented X3. No acute distress. Head: normocephalic, atraumatic. Eyes: Pupils equal, round and reactive to light. ENT: Pharynx normal. No tonsillar swelling or exudate. Neck: Normal inspection. Neck supple. paraspinous muscle tenderness and spasm of the lower cervical spine and upper thoracic spine CVS: Normal heart rate and rhythm. Pulses normal. Respiratory: No respiratory distress. Breath sounds normal. Back: normal inspection. soft tissue tenderness and spasms of the upper trapezius Skin: Skin warm and dry. Normal skin color. Normal skin turgor. No rashes. Extremities: No lower extremity edema. No joint swelling. Left shoulder with well healed surgical scar c/w replacement. pain with full abduction. strength is equal and symmetrical throughout Neuro/psych: Oriented X 3. No motor deficit. No sensory deficit. CN II-XII intact. Normal speech and cognition. Medical Decision Making Medical Decision Making MDM Narrative: 47 yo female presenting for evaluation of neck and upper back muscle spasms for the last 1 week after working at the [employer]. Exam and clinical presentation are most c/w muscle strain and spasm. no trauma to suggest fracture or ligamentous injury. nonfocal neurologically. will start muscle relaxer and pain control. she will f/u with her PCP for further evaluation and treatment. Differential Diagnosis Differential Diagnoses: The differential diagnosis associated with the presentation includes cervical strain/spasm, overuse injury, cervical radiculopathy, doubt any cervical spinal fracture or subluxation, External Record Review External record reviewed: Outpatient record, Prior outpatient labs and Prior outpatient radiology Tests considered The following testing was considered but not selected: considered cervical spinal x-rays but no point tenderness Prescription Management I considered prescription management with: Pain Medication Chronic Conditions Patient?s care impacted by: Diabetes and Other (CKD) Critical Care Time Critical Care Time Critical Care Time: No Discharge Plan Discharge Clinical Impression: Cervical paraspinal muscle spasm Patient Disposition: Home, Self-Care Instructions: Muscle Spasm (ED) Additional Instructions: Your pain is most likely due to muscle strain and spasm. Rest. No strenuous activity. Use heat on low-medium setting 3-4 times per day for 20 minutes at a time. Gently massage the area and work on range of motion of the next and shoulders. Take medications as prescribed to help with pain and discomfort. Follow up with your Primary Care Doctor this week. If you develop new or worsening symptoms call 911 or come back to the ER for further evaluation. Prescriptions: New tizanidine 4 mg tablet 4 mg PO Q8H PRN (Reason: muscle spasticity) Qty: 14 0RF oxycodone-acetaminophen [Percocet] 5-325 mg tablet 1 tab PO Q6H PRN (Reason: severe pain (scale score 7-10)) Qty: 8 0RF Rx Instructions: Partial Fill upon patient request. No Action (DME) nebulizers [AeroEclipse II Nebulizer] Misc See Rx Instructions .Route Qty: 1 0RF Rx Instructions: As directed albuterol sulfate 2.5 mg /3 mL (0.083 %) solution for nebulization 2.5 mg inhalation Q6H PRN (Reason: shortness of breath or wheezing) 15 Days Qty: 180 0RF oxycodone 5 mg tablet 10 mg PO Q8H 7 Days Qty: 42 0RF Rx Instructions: Partial Fill upon patient request. Eliquis 2.5 mg Tablet 2.5 mg PO BID Qty: 60 4RF pantoprazole 20 mg tablet,delayed release (DR/EC) 1 tab PO DAILY amlodipine 10 mg tablet 1 tab PO DAILY calcitriol 0.5 mcg capsule 1 cap PO DAILY docusate sodium [Dulcolax Stool Softener (dss)] 100 mg capsule 1 cap PO BID mycophenolate mofetil [CellCept] 250 mg capsule 500 mg PO BID folic acid 1 mg tablet 1 mg PO DAILY prednisone 5 mg tablet 5 mg PO DAILY sennosides [senna] 8.6 mg tablet 8.6 mg PO BID acetaminophen 650 mg tablet extended release 650 mg PO Q12H 30 Days Qty: 60 0RF tacrolimus 1 mg capsule 3 mg PO Q12H tacrolimus 5 mg capsule 10 mg PO Q12H Trulicity 1.5 mg/0.5 mL pen injector subcut lorazepam 0.5 mg tablet 0.5 mg PO DAILY 2 Days Qty: 2 0RF Nexplanon 68 mg implant 68 mg subdermal DAILY sodium bicarbonate 650 mg tablet 1,300 mg PO TID PRN (Reason: Acid Reflux) famotidine [Pepcid] 20 mg tablet 20 mg PO DAILY albuterol sulfate [Ventolin HFA] 90 mcg/actuation HFA aerosol inhaler 90 mcg inhalation DAILY Interventions: ED Discharge Assessment Last Done: 01/07/23 09:28 Discharge Date/Time: 01/07/23 09:30
== END 2023-01-07 09:30 | disposition home or self-care (01) ==
PROVIDERS: Emergency Provider Emergency Medicine; PCP Physician Assistant
DX: M62.838 Other muscle spasm (principal); M54.2 Cervicalgia; Z86.711 Personal history of pulmonary embolism; Z94.0 Kidney transplant status; Z79.899 Other long term (current) drug therapy; Z79.85 Long-term (current) use of injectable non-insulin antidiabetic drugs; Z79.01 Long term (current) use of anticoagulants
CPT/HCPCS: 99282; 99283

== ENCOUNTER 2023-01-27 08:26 | Outpatient (AMB) | payer MEDICARE, MEDICAID, SELFPAY ==
--- NOTE | 2023-01-27 08:37 | MHC.PC.OV ---
Vital Signs 01/27/23 08:39 Height 5 ft 6 in Weight 203 lb 6 oz BMI 32.8 BP 126/78 Blood Pressure Location Rt brachial Position Sitting Pulse 84 Pulse Source Pulse Oximeter Pulse Oximetry (%) 100 Oxygen Delivery Method Room Air Intake Visit Reasons: f/u DMII/ weight check/ kidney transplant Intake Note: Patient is here to follow up on DMII, weight check, kidney transplant. 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 per policy Accompanied by: Self / Same As Patient Allergies lisinopril [LISINOPRIL] Allergy (Intermediate, Verified 01/27/23 08:48) EYES SWELL SHUT, angioedema, angioedema tramadol [TRAMADOL] Allergy (Intermediate, Verified 01/27/23 08:48) HIVES piperacillin [Zosyn] Allergy (Mild, Verified 01/27/23 08:48) rash cefazolin Allergy (Unknown, Verified 01/27/23 08:48) Unknown hydrocodone [From VICODIN] Allergy (Unknown, Verified 01/27/23 08:48) UNKNOWN ibuprofen [From Motrin] Allergy (Unknown, Verified 01/27/23 08:48) Unknown shellfish derived Allergy (Unknown, Verified 01/27/23 08:48) Unknown Sulfa (Sulfonamide Antibiotics) [SULFA (SULFONAMIDE ANTIBIOTICS)] Allergy (Unknown, Verified 01/27/23 08:48) UNKNOWN vancomycin Allergy (Unknown, Verified 01/27/23 08:48) rash azithromycin Adverse Reaction (Intermediate, Verified 01/27/23 08:48) dizziness/AVERY Medication List - Last Reconciled 01/27/23 by Alexx Baum PA-C acetaminophen ER 650 mg PO Q12H 30 days albuterol sulfate 2.5 mg (3 mL) inhalation Q6H PRN 15 days albuterol sulfate 90 mcg/actuation (Ventolin HFA) 90 mcg inhalation DAILY amlodipine 1 tab PO DAILY apixaban (Eliquis) 2.5 mg PO BID calcitriol 1 cap PO DAILY cyclobenzaprine 10 mg PO TID PRN docusate sodium (Dulcolax Stool Softener (docusate)) 1 cap PO BID etonogestrel (Nexplanon) 68 mg subdermal DAILY famotidine (Pepcid) 20 mg PO DAILY folic acid 1 mg PO DAILY lorazepam 0.5 mg PO DAILY 2 days mycophenolate mofetil (CellCept) 500 mg PO BID nebulizers (AeroEclipse II Nebulizer) As directed oxycodone-acetaminophen 5-325 mg (Percocet) 1 tab PO Q6H PRN pantoprazole 1 tab PO DAILY prednisone 5 mg PO DAILY sennosides (senna) 8.6 mg PO BID sodium bicarbonate 1,300 mg PO TID PRN tacrolimus 3 mg PO Q12H tacrolimus 10 mg PO Q12H tirzepatide (Mounjaro) mg subcut tizanidine 4 mg PO Q8H PRN Tobacco use date assessed: 01/27/23 Dental Screening Dental Screen Date: 01/27/23 Did you have a dental visit in the last 12 months?: Yes Did you have a dental problem in the last 6 months where you did not have access to dental care?: No Was dental information given to patient?: Patient has dentist HPI f/u DMII/ weight check/ kidney transplant HPI Details Patient is a 47-year-old female here today for a follow-up visit on her chronic conditions.? Patient has a past medical history significant for pulmonary embolism on anticoagulation, GERD, Asthma, Iron def anemia,? obesity, DMII, end-stage renal disease status post kidney transplant, chronic lumbar spine pain. .. Right shoulder pain: Has recently underwent right shoulder surgery with orthopedics. Now in physical therapy and doing somewhat better. She has developed some mid cervical spine pain that radiates into her left shoulder as well. She was seen a chiropractor though has stopped seeing them. 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 Was recently seen at the ER for her neck pain and was prescribed cyclobenzaprine and some pain medication. She is asking for pain medication today. . Pulmonary embolism:? Patient followed by Oncology Hematology and has been started on Eliquis 2.5 b.i.d..? Unfortunately has been complicated by heavy menstrual bleeding secondary to her control.? Has gotten a D&C which has resolved her menstrual bleeding.? She did have fairly severe iron deficiency anemia requiring iron infusion. .. Kidney transplant recipient:? Is continued to be followed by transplant team and was to [facility].? Continues on long-term anti rejection medications.? She continues to get biweekly labs .. DMII:? Has developed diabetes likely secondary to chronic prednisone use and her obesity. She was started on Mounjauro and has lost any significant amount of weight., has been able to lose a significant amount weight and diabetes much better controlled. Patient reports an A1c is 6.7 recently done in [facility] Medical History History of pulmonary embolism Chronic kidney disease Ankylosing spondylitis of lumbar region Right lumbar radiculopathy Surgical History S/P kidney transplant Status post dialysis Hx of bilateral breast reduction surgery Family History Mother No problems noted. Father No problems noted. Social History Household Members: None Housing: Apartment Are you a primary continuum of care manager to a significant other at home: No Do you presently have visiting nurse or other home services: No Alcohol intake: never Patient Tobacco Use Status: Former Tobacco user Years Smoked: 15 e-Cigarette/Vaping Use: Never Used Second Hand Smoke Exposure: No Advance Directives Date on File: 02/26/20 service: No Current occupational status: disabled Gender identity: Female Cognitive needs: No Hearing needs: No Vision needs: Yes (Glasses) Female Reproductive History Menstrual Age of Menarche: 17 Questionnaire Thrive Questionnaire Date Thrive assessed: 08/26/22 VIRIDIANA-7 AMB Questionnaire VIRIDIANA-7 Date VIRIDIANA - 7 assessed: 08/26/22 Source: Developed by Drs. Han Marcelo, Halel Robles, Dexter Medrano and colleagues, with an educational tigre from [employer]. Review of Systems Const Denies headache(s) Eyes Denies loss of vision ENT Denies vertigo, Denies dizziness, Denies headache(s) and Denies sore throat Card Denies chest pain, Denies leg edema and Denies lightheadedness Resp Denies cough, Denies hemoptysis and Denies wheezing GI Denies abdominal pain, Denies melena, Denies constipation, Denies diarrhea and Denies vomiting Denies urinary frequency, Denies dysuria and Denies urinary urgency Musc Denies arthralgias, Denies joint swelling, Denies numbness and Denies tingling Neuro Denies Abnormal speech present, Denies behavioral changes, Denies vertigo, Denies dizziness, Denies headache(s), Denies loss of vision, Denies memory loss, Denies numbness and Denies tingling Psych Denies anxiety, Denies behavioral changes, Denies depression, Denies memory loss and Denies panic attacks Chris/Lymph Denies easy bleeding and Denies easy bruising Aller/Immun Denies wheezing Physical exam (Primary Care) Vital Signs: Last Vital Signs Pulse 84 01/27/23 08:39 BP 126/78 01/27/23 08:39 Pulse Ox 100 01/27/23 08:39 Oxygen Delivery Method Room Air 01/27/23 08:39 BMI result Body Mass Index 32.8 Tobacco/Smoking Status: Tobacco use Status Tobacco use date assessed 01/27/23 01/27/23 08:45 Patient Tobacco Use Status Former Tobacco user 01/27/23 08:45 e-Cigarette/Vaping Use Never Used 01/27/23 08:45 Thrive Assessment: Date of Thrive Assessment Date Thrive assessed 08/26/22 01/27/23 08:45 Const General: healthy appearing, no acute distress, alert and awake Nutritional Appearance: well nourished Orientation/consciousness: oriented to person, oriented to place and oriented to time HENMT Ears: TM's normal bilaterally General nose exam: Normal nasal mucous membranes and turbinates present Eyes Conjunctivae: conjunctivae normal Sclerae: sclerae normal Pupils: Equal, round and reactive pupils present Neck Neck: Yes no lymphadenopathy and Yes no JVD Thyroid: Thyroid normal Carotids: no bruits Resp Effort & Inspection: normal respiratory effort and not tachypneic Auscultation: no crackles, no rales, no rhonchi and no wheezes Cardio Rate: regular rate Rhythm: regular rhythm Heart sounds: no murmurs and normal S1 and S2 GI Palpation (GI): Soft to palpation, nontender, no hepatomegaly and no splenomegaly Auscultation: normal bowel sounds Skin General skin exam: no rashes or lesions noted and dry skin Neuro General: oriented to person, oriented to place and oriented to time Cranial nerves: Yes Equal, round and reactive pupils present Speech: No Abnormal speech present Gait exam (Neuro): Normal gait present Motor exam (neuro): no tremor noted Extrem Right upper extremity: full ROM Left upper extremity: full ROM Shoulder/upper arm images: 1. WELL-HEALED SURGICAL SCAR OVER LEFT SHOULDER ANTERIOR ASPECT. LIMITED RANGE OF MOTION OF LEFT SHOULDER DUE TO PAIN AND SOME STIFFNESS. Right lower extremity: full ROM; no edema Left lower extremity: full ROM; no edema Psych Mental Status: mental status grossly normal Speech and movement: Normal speech and movement present Affect: normal affect Attitude: cooperative Thought process: Normal thought process present Assessment and Plan Assessment & Plan (1) S/P kidney transplant: Comment: post op complication, clots removed kidney surface Code(s): Z94.0 - Kidney transplant status Plan: Patient continues to follow transplant team and was to [place], continues on anti rejection drugs and prednisone. Having hard time losing weight due to prednisone. She reports urination has been fine and most recent renal function tests have been stable. (2) Complete rotator cuff tear of left shoulder: Code(s): M75.122 - Complete rotator cuff tear or rupture of left shoulder, not specified as traumatic Qualifiers: Encounter type: subsequent encounter Rotator cuff tear trauma status: traumatic Qualified Code(s): S46.012D - Strain of muscle(s) and tendon(s) of the rotator cuff of left shoulder, subsequent encounter Plan: Has underwent a left shoulder replacement. Has been in physical therapy and doing a bit better. Still has moderate pain in her shoulder, neck and knee. Does use oxycodone low-dose on a p.r.n. basis. We did discuss pain management willing to give her #12 tablets oxycodone 5 mg to use on a p.r.n. basis for pain scales of 9-10. (3) DMII (diabetes mellitus, type 2): Code(s): E11.9 - Type 2 diabetes mellitus without complications Qualifiers: Diabetes mellitus complication status: with hyperglycemia Diabetes mellitus half-way insulin use: without parts counterman use Qualified Code(s): E11.65 - Type 2 diabetes mellitus with hyperglycemia Plan: Followed by Endocrinology at [facility]. Has been started on new injectable diabetic medication has lost significant amount of weight.. 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 She does report A1c is 6.7 recently. Goal A1c to be below 7.0 (4) Obese: Code(s): E66.9 - Obesity, unspecified Qualifiers: Body mass index: BMI 39.0-39.9 Obesity classification: adult class 2 (BMI 35 - 39.9) Obesity type: due to excess calories Serious obesity comorbidity presence: with serious comorbidity Qualified Code(s): E66.01 - Morbid (severe) obesity due to excess calories; Z68.39 - Body mass index [BMI] 39.0-39.9, adult Plan: Patient does understand her BMI is well over 30 will work on trying to be physically active and adapting to better eating habits to reduce her weight. Unfortunately continues on prednisone indefinitely due to her kidney transplant (5) ESRD (end stage renal disease): Code(s): N18.6 - End stage renal disease Plan: In remission is status post kidney transplant Continues to follow kidney transplant team in [facility] (6) Colon cancer screening: Code(s): Z12.11 - Encounter for screening for malignant neoplasm of colon Plan: Willing to do Cologuard Orders: Referrals Cologuard Test Z12.11 - Encounter for screening for malignant neoplasm of colon Medications: Changed From oxycodone-acetaminophen 5-325 mg (Percocet) Partial Fill upon patient request. 1 tab PO Q6H PRN 8 tabs 0RF severe pain (scale score 7-10) M75.122 - Complete rotator cuff tear or rupture of left shoulder, not specified as traumatic To oxycodone-acetaminophen 5-325 mg (Percocet) Partial Fill upon patient request. 1 tab PO Q8H 4 days PRN 12 tabs 0RF severe pain (scale score 7-10) M75.122 - Complete rotator cuff tear or rupture of left shoulder, not specified as traumatic Discontinued tizanidine Discontinued Reason: Doctor's Order 4 mg PO Q8H PRN 14 tabs 0RF muscle spasticity Coding Level of Care Code Est Pt Level 4 (46264) Diagnoses S/P kidney transplant Z94.0 Traumatic complete tear of left rotator cuff, subsequent encounter S46.012D Encounter type: subsequent encounter Rotator cuff tear trauma status: traumatic Type 2 diabetes mellitus with hyperglycemia, without long-term current use of insulin E11.65 Diabetes mellitus complication status: with hyperglycemia Diabetes mellitus half-way insulin use: without half-way use Class 2 severe obesity due to excess calories with serious comorbidity and body mass index (BMI) of 39.0 to 39.9 in adult E66.01; Z68.39 Body mass index: BMI 39.0-39.9 Obesity classification: adult class 2 (BMI 35 - 39.9) Obesity type: due to excess calories Serious obesity comorbidity presence: with serious comorbidity ESRD (end stage renal disease) N18.6 Colon cancer screening Z12.11
[2023-01-27 08:39] VITALS: BP 126/78; PULSE 84; O2SAT 100; BMI 32.8
== END 2023-01-27 09:05 | disposition home or self-care (01) ==
PROVIDERS: Visit Provider Physician Assistant
DX: E11.65 Type 2 diabetes mellitus with hyperglycemia (principal); E66.01 Morbid (severe) obesity due to excess calories; N18.6 End stage renal disease; Z68.39 Body mass index [BMI] 39.0-39.9, adult; Z94.0 Kidney transplant status; S46.012D Strain of muscle(s) and tendon(s) of the rotator cuff of left shoulder, subsequent encounter
CPT/HCPCS: 99214

== ENCOUNTER 2023-02-12 20:05 | Emergency (ER) | payer MEDICARE, MEDICAID, SELFPAY ==
--- NOTE | ~2023-02-12 | XR_ITS ---
EXAMINATION: XR CERVICAL SPINE CLINICAL INFORMATION: Neck pain. Patient refused to remove jewelry. COMPARISON: None available. TECHNIQUE: 3 views of the cervical spine were obtained. FINDINGS: There is mild straightening of cervical lordosis. The vertebral heights and alignment is normal. There is moderate loss of C5-C6 disc height with ventral spondylosis. The rest the disc heights are normal. No visible acute fracture, dislocation or subluxation seen. The prevertebral soft tissues are normal. There are surgical ronel in right anterior neck from previous intervention. XR/XR cervical spine 3V IMPRESSION: Moderate degenerative disc changes with ventral spondylosis C5-C6 disc level. No visible acute fracture or dislocation.
[2023-02-12 20:08] VITALS: BP 139/91; PULSE 84; RESP 16; TEMP 37; O2SAT 98; BMI 37.1
--- NOTE | 2023-02-12 20:12 | ED_ITS ---
HPI - General Adult General Chief complaint: General Medical Stated complaint: Knee and neck pain Time Seen by Provider: 02/12/23 22:18 Source: patient Mode of arrival: wheelchair Limitations: no limitations History of Present Illness HPI narrative: Patient comes in the emergency room complaining of chronic neck pain for 3 weeks, chronic knee pain that needs knee replacement, bilateral upper back pain for which she is going to physical therapy. Patient comes to the emergency room requesting an x-ray. Patient states that today she went to see her chiropractor, they were supposed to crack her neck today, but due to pain, and per chiropractor there was tissue swelling, they could not crack her neck and they asked her to come to the emergency room for an x-ray of the neck. Patient any numbness tingling in extremities. Related Data Home Medications Medication Instructions Recorded Confirmed amlodipine 10 mg tablet 1 tab PO DAILY 11/30/20 01/27/23 calcitriol 0.5 mcg capsule 1 cap PO DAILY 11/30/20 01/27/23 docusate sodium 100 mg capsule 1 cap PO BID 11/30/20 01/27/23 (Dulcolax Stool Softener (docusate)) pantoprazole 20 mg tablet,delayed 1 tab PO DAILY 11/30/20 01/27/23 release folic acid 1 mg tablet 1 mg PO DAILY 12/19/20 01/27/23 mycophenolate mofetil 250 mg 500 mg PO BID 12/19/20 01/27/23 capsule (CellCept) prednisone 5 mg tablet 5 mg PO DAILY 12/19/20 01/27/23 sennosides 8.6 mg tablet (senna) 8.6 mg PO BID 12/19/20 01/27/23 etonogestrel 68 mg subdermal 68 mg subdermal DAILY 06/18/21 01/27/23 implant (Nexplanon) sodium bicarbonate 650 mg tablet 1,300 mg PO TID PRN Acid Reflux 06/18/21 01/27/23 albuterol sulfate 90 mcg/actuation 90 mcg inhalation DAILY 07/30/21 01/27/23 aerosol inhaler (Ventolin HFA) famotidine 20 mg tablet (Pepcid) 20 mg PO DAILY 07/30/21 01/27/23 tacrolimus 1 mg capsule, 3 mg PO Q12H 07/30/21 01/27/23 immediate-release tacrolimus 5 mg capsule, 10 mg PO Q12H 07/30/21 01/27/23 immediate-release tirzepatide 12.5 mg/0.5 mL mg subcut 01/27/23 01/27/23 subcutaneous pen injector (Lubna) Previous Rx's Medication Instructions Recorded acetaminophen 650 mg 650 mg PO Q12H 30 days #60 tabs 12/19/20 tablet,extended release albuterol sulfate 2.5 mg/3 mL 2.5 mg (3 mL) inhalation Q6H PRN 03/05/22 (0.083 %) solution for nebulization shortness of breath or wheezing 15 days #180 mL nebulizers (AeroEclipse II #1 ea 03/05/22 Nebulizer) lorazepam 0.5 mg tablet 0.5 mg PO DAILY anxiety 2 days #2 08/26/22 tabs apixaban 2.5 mg tablet (Eliquis) 2.5 mg PO BID #60 tabs 10/26/22 cyclobenzaprine 10 mg tablet 10 mg PO TID PRN muscle spasm #14 01/07/23 tabs oxycodone-acetaminophen 5 mg-325 1 tab PO Q8H PRN severe pain 01/27/23 mg tablet (Percocet) (scale score 7-10) 4 days #12 tabs diazepam 2 mg tablet 2 mg PO BEDTIME PRN muscle spasm 02/12/23 #3 tabs oxycodone 5 mg tablet 5 mg PO BID PRN pain #5 tabs 02/12/23 Allergies Allergy/AdvReac Type Severity Reaction Status Date / Time lisinopril [LISINOPRIL] Allergy Intermediate EYES SWELL Verified 01/27/23 08:48 SHUT, angioedema, angioedema tramadol [TRAMADOL] Allergy Intermediate HIVES Verified 01/27/23 08:48 piperacillin [Zosyn] Allergy Mild rash Verified 01/27/23 08:48 cefazolin Allergy Unknown Unknown Verified 01/27/23 08:48 hydrocodone [From VICODIN] Allergy Unknown UNKNOWN Verified 01/27/23 08:48 ibuprofen [From Motrin] Allergy Unknown Unknown Verified 01/27/23 08:48 shellfish derived Allergy Unknown Unknown Verified 01/27/23 08:48 Sulfa (Sulfonamide Allergy Unknown UNKNOWN Verified 01/27/23 08:48 Antibiotics) [SULFA (SULFONAMIDE ANTIBIOTICS)] vancomycin Allergy Unknown rash Verified 01/27/23 08:48 azithromycin AdvReac Intermediate dizziness/A Verified 01/27/23 08:48 KI Review of Systems Review of Systems: Constitutional : No Weight loss, No Fever, No Chills, No Night Sweats, No Fatigue, No Malaise ENT/Mouth : No Hearing loss, No Ear Pain, No Nasal Congestion, No Sinus Pain, No Hoarseness, No sore throat, No Rhinorrhea, No Swallowing Difficulty Eyes: No Eye Pain, No Swelling, No Redness, No Foreign Body, No Discharge, No Vision Changes Cardiovascular : No Chest Pain, No SOB, No Dyspnea on Exertion, No Orthopnea, No Edema, No Palpitations Respiratory : No Cough, No Sputum, No Wheezing, No Smoke Exposure, No Dyspnea Gastrointestinal : No Nausea, No Vomiting, No Diarrhea, No Constipation, No abdominal Pain, No Hematochezia, No Melena Genitourinary : no irregular bleeding, No Dysuria, No Urinary Frequency, No Hematuria, No Urinary Incontinence, No Urgency, No Flank Pain, No Urinary Flow Changes, No Hesitancy Musculoskeletal : Complaining of chronic neck pain in the neck, upper back, left knee Skin : No Skin Lesions, No rash Neuro : No Weakness, No Numbness, No Paresthesias, No Loss of Consciousness, No Dizziness, No Headache Psych : No Anxiety/Panic, No Depression, No SI/HI/AH/VH, No Social Issues, Heme/Lymph: No Bruising, No Bleeding,No Lymphadenopathy Endocrine : No Polyuria, No Polydipsia, No Temperature Intolerance [facility] Past Medical History Medical History History of pulmonary embolism Chronic kidney disease Ankylosing spondylitis of lumbar region Right lumbar radiculopathy Surgical History S/P kidney transplant Status post dialysis Hx of bilateral breast reduction surgery Family History Family History Mother No problems noted. Father No problems noted. Social History Social History Household Members: None Housing: Apartment Are you a primary patient care technician instructor to a significant other at home: No Do you presently have visiting nurse or other home services: No Alcohol intake: never Patient Tobacco Use Status: Former Tobacco user Years Smoked: 15 e-Cigarette/Vaping Use: Never Used Second Hand Smoke Exposure: No Advance Directives: No Advance Directives Information Provided: No Advance Directives Date on File: 02/26/20 service: No Current occupational status: disabled Gender identity: Female Cognitive needs: No Hearing needs: No Vision needs: Yes (Glasses) Physical Exam ED Vital Signs: Vital Signs - 24 hr 02/12/23 20:08 02/12/23 22:00 Temperature 98.6 F 98.2 F Pulse Rate 84 80 Respiratory Rate 16 16 Blood Pressure 139/91 H 150/69 H Pulse Oximetry 98 98 Oxygen Delivery Method Room Air Room Air BMI result Body Mass Index 37.1 Const Other: Appearance: Alert. Oriented X3. No acute distress. Eyes: Pupils equal, round and reactive to light. ENT: Pharynx normal. Neck: Normal inspection. To palpation in her neck, upper back CVS: Normal heart rate and rhythm. Pulses normal. Normal S1 and S2 Respiratory: No respiratory distress. Breath sounds normal. No Wheezing. No rales Abdomen: Soft and nontender. No rigidity. No distention. Skin: Skin warm and dry. Normal skin color. Normal skin turgor. Extremities: No lower extremity edema. No Lacerations. No Rash Neuro: Oriented X 3. No motor deficit. No sensory deficit. Moving all extremities. No slurred speech. CN 2 through 12 grossly intact Psych: calm, cooperative, normal affect Course Course Course Narrative: RME- 47 year old female presents for evaluation of neck and knee pain that has been present for several months. She was seen here a few weeks ago for similar. Her chiropractor recommended ?an x-ray of my neck. ? Denies any recent fall or trauma. The patient was discharged with tizanidine and Percocet on her last visit. She ultimately found out that she cannot take tizanidine due to her kidney transplant and medication reactions so the medication was switched to Flexeril which she believes does not help her pain. Medical Decision Making Medical Decision Making MDM Narrative: -my interpretation of x-ray: No obvious deformity. -radiology report: Moderate degenerative disc changes C5-C6 -I reviewed the patient's MAss Pat report, patient has 10 different providers who have prescribed oxycodone to her. -I discussed with the patient I will give her a small prescription this time, but she needs to go to the chronic pain clinic, or get a single provider that prescribes the narcotics for her. Differential Diagnosis Differential Diagnoses: The differential diagnosis associated with the presentation includes (Chronic pain, medication seeking, radiculopathy) Discharge Plan Discharge Clinical Impression: Chronic pain Patient Disposition: Home, Self-Care Instructions: Chronic Pain (ED) Additional Instructions: Please follow-up with your primary care physician tomorrow. If you have any worsening or new symptoms, please return to the emergency room or call 911 Prescriptions: New oxycodone 5 mg tablet 5 mg PO BID PRN (Reason: pain) Qty: 5 0RF Rx Instructions: Partial Fill upon patient request. diazepam 2 mg tablet 2 mg PO BEDTIME PRN (Reason: muscle spasm) Qty: 3 0RF No Action (DME) nebulizers [AeroEclipse II Nebulizer] Misc See Rx Instructions .Route Qty: 1 0RF Rx Instructions: As directed albuterol sulfate 2.5 mg /3 mL (0.083 %) solution for nebulization 2.5 mg inhalation Q6H PRN (Reason: shortness of breath or wheezing) 15 Days Qty: 180 0RF Eliquis 2.5 mg Tablet 2.5 mg PO BID Qty: 60 4RF pantoprazole 20 mg tablet,delayed release (DR/EC) 1 tab PO DAILY amlodipine 10 mg tablet 1 tab PO DAILY calcitriol 0.5 mcg capsule 1 cap PO DAILY docusate sodium [Dulcolax Stool Softener (dss)] 100 mg capsule 1 cap PO BID cyclobenzaprine 10 mg tablet 10 mg PO TID PRN (Reason: muscle spasm) Qty: 14 0RF mycophenolate mofetil [CellCept] 250 mg capsule 500 mg PO BID folic acid 1 mg tablet 1 mg PO DAILY prednisone 5 mg tablet 5 mg PO DAILY sennosides [senna] 8.6 mg tablet 8.6 mg PO BID acetaminophen 650 mg tablet extended release 650 mg PO Q12H 30 Days Qty: 60 0RF tacrolimus 1 mg capsule 3 mg PO Q12H tacrolimus 5 mg capsule 10 mg PO Q12H lorazepam 0.5 mg tablet 0.5 mg PO DAILY 2 Days Qty: 2 0RF Mounjaro 12.5 mg/0.5 mL pen injector subcut oxycodone-acetaminophen [Percocet] 5-325 mg tablet 1 tab PO Q8H PRN (Reason: severe pain (scale score 7-10)) 4 Days Qty: 12 0RF Rx Instructions: Partial Fill upon patient request. Nexplanon 68 mg implant 68 mg subdermal DAILY sodium bicarbonate 650 mg tablet 1,300 mg PO TID PRN (Reason: Acid Reflux) famotidine [Pepcid] 20 mg tablet 20 mg PO DAILY albuterol sulfate [Ventolin HFA] 90 mcg/actuation HFA aerosol inhaler 90 mcg inhalation DAILY Referrals: Nicola Castanon MD [Physician] -
--- OUTSIDE RECORDS SUMMARY | 2023-02-12 20:45 | XMS_ITS | Patient Health Record ---
Author Name Unknown [facility] Address [address] [place] [address] Care Team Providers Care Dispatch Machine Runner Name Role Phone Alexx Baum Primary Care Provider UnavailNan Rudolph Unavailable [phone] ALLERGIES Allergen (clinical drug ingredient) Drug/Non Drug [...] No Encounters Encounter Location Date Provider Diagnosis [facility] [place] [address] [place] [address] 06/02/2022 Nan Phillips [facility] [address] 06/26/2022 Nan Phillips PLAN OF TREATMENT No Information Insurance Providers Payer Name Payer Address Payer Phone Subscriber Number Group Number Insured Name Patient Relationship to Insured Coverage Start Date Coverage End Date Medicare National [employer] [address] [place] [address] [id number] Dara Robles Self - patient is the insured MEDICAL (GENERAL) HISTORY Medical History History ICD Code Anxiety asthma Depression Kidney disease Surgical History Surgery Date(Month/Year)
--- OUTSIDE RECORDS SUMMARY | 2023-02-12 20:46 | XMS_ITS | Patient Health Record ---
Author Name Unknown Organization [facility] Address [address], [place] [id number] Support Name Relationship Address Phone Elmer Robles Emergency Contact [facility] [place] [facility] [phone] Dara Robles Guarantor Unknown Unavailable REASON FOR REFERRAL No Information SOCIAL HISTORY Sex Assigned At : Social History Observation Description Sex Assigned At Unknown PLAN OF TREATMENT No Information
[2023-02-12 22:00] VITALS: BP 150/69; PULSE 80; RESP 16; TEMP 36.8; O2SAT 98
== END 2023-02-12 23:29 | disposition home or self-care (01) ==
PROVIDERS: Emergency Provider Emergency Medicine; PCP Physician Assistant
DX: G89.29 Other chronic pain (principal); M54.2 Cervicalgia; Z87.891 Personal history of nicotine dependence; Z94.0 Kidney transplant status
CPT/HCPCS: 72040; 99283

== ENCOUNTER → 2023-03-27 08:30 | Outpatient (BNV) | payer MEDICARE, MEDICAID, SELFPAY | PROVIDERS: PCP Physician Assistant; Visit Provider Radiology Diagnostic Radiology | DX: Z12.31 Encounter for screening mammogram for malignant neoplasm of breast (principal) | CPT/HCPCS: 77063; 77067 ==

== ENCOUNTER 2023-03-27 08:46 | Outpatient (REF) | payer MEDICARE, MEDICAID, SELFPAY ==
--- NOTE | ~2023-03-27 | MM_ITS ---
EXAMINATION: MM SCREENING DIGITAL BREAST TOMOSYNTHESIS, BILATERAL CLINICAL INFORMATION: Screening. Asymptomatic. Patient is status post bilateral breast reduction. COMPARISON: Mammography: This study is compared with prior exams dating back to 2019. TECHNIQUE: Digital breast tomosynthesis is performed in both the craniocaudal and mediolateral oblique views along with computer-aided detection (CAD). Synthesized 2D images are generated from the tomosynthesis. FINDINGS: There are scattered areas of fibroglandular density (ACR BI-RADS breast composition Category b). There are no significant masses, abnormal calcifications, or other abnormalities. There are post reduction changes in each breast. There is a biopsy tissue marker within an oval, unchanged, benign mass in the central portion of the right breast. MM/MM tomosynthesis screening BI IMPRESSION: No mammographic evidence of malignancy. ASSESSMENT: BI-RADS BI-RADS 2 - Benign Findings RECOMMENDATION: Routine annual mammography screening. 1 year F/U This examination should not preclude the clinical evaluation of a suspicious palpable abnormality. This patient's information was entered into a reminder system with a target due date for their next mammogram.
== END 2023-03-27 08:47 | disposition home or self-care (01) ==
LOC: HO.MAMMO 08:46
PROVIDERS: PCP Physician Assistant; Visit Provider Physician Assistant
DX: Z12.31 Encounter for screening mammogram for malignant neoplasm of breast (principal)
CPT/HCPCS: 77063; 77067

== ENCOUNTER 2023-04-14 08:47 | Outpatient (AMB) | payer MEDICARE, MEDICAID, SELFPAY ==
--- OUTSIDE RECORDS SUMMARY | 2023-04-14 08:49 | XMS_ITS | Patient Health Record ---
Author Name Unknown [facility] Address [address] [facility] [place] [address] Care Team Providers Care Bait Digger Name Role Phone Alexx Baum Primary Care Provider UnavailNan Rudolph Unavailable [phone] ALLERGIES Allergen (clinical drug ingredient) Drug/Non Drug [...] No Encounters Encounter Location Date Provider Diagnosis [facility] [place] [address] [place] [address] 06/02/2022 Nan Phillips [facility] [address] 06/26/2022 Nan Phillips PLAN OF TREATMENT No Information Insurance Providers Payer Name Payer Address Payer Phone Subscriber Number Group Number Insured Name Patient Relationship to Insured Coverage Start Date Coverage End Date Medicare National [employer] [address] [place] [address] [id number] Dara Robles Self - patient is the insured MEDICAL (GENERAL) HISTORY Medical History History ICD Code Anxiety asthma Depression Kidney disease Surgical History Surgery Date(Month/Year)
--- OUTSIDE RECORDS SUMMARY | 2023-04-14 08:51 | XMS_ITS | Patient Health Record ---
Author Name Unknown Organization [facility] Address [address] [place], [place] [id number] Support Name Relationship Address Phone Elmer Robles Emergency Contact [facility] [place] [facility] [phone] Dara Robles Guarantor Unknown Unavailable REASON FOR REFERRAL No Information SOCIAL HISTORY Sex Assigned At : Social History Observation Description Sex Assigned At Unknown PLAN OF TREATMENT No Information
--- NOTE | 2023-04-14 09:07 | AM.OFFWIN_ITS ---
Intake Vital Signs 04/14/23 09:08 Height 5 ft 6 in BP 130/80 Blood Pressure Location Rt brachial Position Sitting Pulse 81 Pulse Source Pulse Oximeter Temp 98.9 F Temp Source Oral Pulse Oximetry (%) 100 Oxygen Delivery Method Room Air Intake Visit Reasons: EP Cough, Congestion, Mucus (Masked) Intake Note: pt is here for c/o cough, congestion, mucus flushed ear Patient Tobacco Use Status: Former Tobacco user Allergies lisinopril [LISINOPRIL] Allergy (Intermediate, Verified 04/14/23 09:34) EYES SWELL SHUT, angioedema, angioedema tramadol [TRAMADOL] Allergy (Intermediate, Verified 04/14/23 09:34) HIVES piperacillin [Zosyn] Allergy (Mild, Verified 04/14/23 09:34) rash cefazolin Allergy (Unknown, Verified 04/14/23 09:34) Unknown hydrocodone [From VICODIN] Allergy (Unknown, Verified 04/14/23 09:34) UNKNOWN ibuprofen [From Motrin] Allergy (Unknown, Verified 04/14/23 09:34) Unknown shellfish derived Allergy (Unknown, Verified 04/14/23 09:34) Unknown Sulfa (Sulfonamide Antibiotics) [SULFA (SULFONAMIDE ANTIBIOTICS)] Allergy (Unknown, Verified 04/14/23 09:34) UNKNOWN vancomycin Allergy (Unknown, Verified 04/14/23 09:34) rash azithromycin Adverse Reaction (Intermediate, Verified 04/14/23 09:34) dizziness/AVERY Medication List - Last Reconciled 04/14/23 by ENEDELIA Simon- acetaminophen ER 650 mg PO Q12H 30 days albuterol sulfate 2.5 mg (3 mL) inhalation Q6H PRN 15 days albuterol sulfate 90 mcg/actuation (Ventolin HFA) 90 mcg inhalation DAILY amlodipine 1 tab PO DAILY apixaban (Eliquis) 2.5 mg PO BID diazepam 2 mg PO BEDTIME PRN docusate sodium (Dulcolax Stool Softener (docusate)) 1 cap PO BID etonogestrel (Nexplanon) 68 mg subdermal DAILY famotidine (Pepcid) 20 mg PO DAILY lorazepam 0.5 mg PO DAILY 2 days mycophenolate mofetil (CellCept) 500 mg PO BID nebulizers (AeroEclipse II Nebulizer) As directed pantoprazole 1 tab PO DAILY prednisone 5 mg PO DAILY sennosides (senna) 8.6 mg PO BID sodium bicarbonate 1,300 mg PO TID PRN tacrolimus 3 mg PO Q12H tacrolimus 10 mg PO Q12H tirzepatide (Mounjaro) mg subcut Do you need a note to return to daycare/school/sports/work: Yes HPI HPI Comments History of Present Illness Details flu like sx started 3 days ago sx: sore throat, chest congestion w/ prod cough, runny nose, decreased appetite exposed to second hand smoke No at home COVID test UTD on vaccines She is a kidney transplant on medications - reports normal labs, managed by [facility] using tea at home to help w little relief PFSH Medical History History of pulmonary embolism Chronic kidney disease Ankylosing spondylitis of lumbar region Right lumbar radiculopathy Surgical History S/P kidney transplant Status post dialysis Hx of bilateral breast reduction surgery Family History Mother No problems noted. Father No problems noted. Social History Household Members: None Housing: Apartment Are you a primary residential care officer to a significant other at home: No Do you presently have visiting nurse or other home services: No Alcohol intake: never Patient Tobacco Use Status: Former Tobacco user Years Smoked: 15 e-Cigarette/Vaping Use: Never Used Second Hand Smoke Exposure: No Advance Directives Date on File: 02/26/20 service: No Current occupational status: disabled Gender identity: Female Cognitive needs: No Hearing needs: No Vision needs: Yes (Glasses) Female Reproductive History Menstrual Age of Menarche: 17 Review of Systems Const All systems reviewed & are unremarkable except as noted in HPI and below Physical Exam Vital Signs: Last Vital Signs Temp 98.9 F 04/14/23 09:08 Pulse 81 04/14/23 09:08 BP 130/80 04/14/23 09:08 Pulse Ox 100 04/14/23 09:08 Oxygen Delivery Method Room Air 04/14/23 09:08 Const Other: awake alert NAD Left EAC cerumen impaction, unable to see TM. Right TM intact, + effusion Nasal septum perforation on L Pharynx WNL LS CTAB RRR, holosystolic murmur throughout Office Procedures Cerumen Removal From which ear canal was the cerumen removed: left Removal: irrigation Notes: patient tolerated procedure well, no complications and ear canal clear 47809-[id number] Irrigation/Lavage Assessment & Plan Assessment & Plan (1) Flu-like symptoms: Code(s): R68.89 - Other general symptoms and signs Plan: . Orders: Orders SARS-CoV2/FLU/RSV Today R68.89 - Other general symptoms and signs AMB Cerumen Removal Today H61.22 - Impacted cerumen, left ear Patient Instructions: If viral swab +, declined tx for covid w medications therefore supportive care only. she should call her transplant team and keep them up to date on her sx and also if her viral swab is +. apap for pain, otherwise no medications needed. Coding Level of Care Code Est Pt Level 4 (00972) Diagnoses Flu-like symptoms R68.89 CPT Codes Office Procedure - CPT: 62554-Yeh Irrigation/Lavage ([id number])
[2023-04-14 09:08] VITALS: BP 130/80; PULSE 81; TEMP 37.2; O2SAT 100
== END 2023-04-14 10:13 | disposition home or self-care (01) ==
LOC: HO.HMGWI 08:48
PROVIDERS: PCP Physician Assistant; Visit Provider Nurse Practitioner Family
DX: H61.22 Impacted cerumen, left ear (principal); R68.89 Other general symptoms and signs; Z94.0 Kidney transplant status
CPT/HCPCS: 69209; 99213

== ENCOUNTER 2023-04-14 11:41 | Outpatient (REF) | payer MEDICARE, MEDICAID, SELFPAY ==
[2023-04-14 12:35] LABS: Influenza A PCR NEGATIVE (Negative); Influenza B PCR NEGATIVE (Negative); Resp Syncy Virus RNA Qual PCR NEGATIVE (Negative); SARS COV2 PCR INHOUSE NEGATIVE (Negative)
== END 2023-04-14 11:42 | disposition home or self-care (01) ==
LOC: HO.LNP 11:41
PROVIDERS: Visit Provider Nurse Practitioner Family
DX: R68.89 Other general symptoms and signs (principal); Z20.822 Contact with and (suspected) exposure to COVID-19
CPT/HCPCS: 0241U

== ENCOUNTER 2023-04-18 11:39 | Emergency (ER) | payer MEDICARE, MEDICAID, SELFPAY ==
--- NOTE | 2023-04-18 | ECG_ITS ---
Test Reason : CHEST TIGHTNESS Blood Pressure : / mmHG Vent. Rate : 080 BPM Atrial Rate : 080 BPM P-R Int : 148 ms QRS Dur : 084 ms QT Int : 402 ms P-R-T Axes : 034 -02 049 degrees QTc Int : 463 ms Sinus rhythm with Premature supraventricular complexes Otherwise normal ECG When compared with ECG of 11-NOV-2021 14:35, Premature supraventricular complexes are now Present Nonspecific T wave abnormality now evident in Lateral leads Referred By: Generic ED Physician Electronically Signed By:JAYASHREE SOTO
[2023-04-18 11:46] VITALS: BP 138/88; PULSE 80; O2SAT 100
[2023-04-18 12:32] VITALS: BP 127/78; PULSE 81; RESP 18; TEMP 36.3; O2SAT 98; BMI 38.4
--- NOTE | 2023-04-18 12:33 | ED_ITS ---
HPI - General Adult General Chief complaint: Upper Respiratory Symptoms Stated complaint: chest tightness/SOB Related Data Home Medications Medication Instructions Recorded Confirmed amlodipine 10 mg tablet 1 tab PO DAILY 11/30/20 04/14/23 docusate sodium 100 mg capsule 1 cap PO BID 11/30/20 04/14/23 (Dulcolax Stool Softener (docusate)) pantoprazole 20 mg tablet,delayed 1 tab PO DAILY 11/30/20 04/14/23 release mycophenolate mofetil 250 mg 500 mg PO BID 12/19/20 04/14/23 capsule (CellCept) prednisone 5 mg tablet 5 mg PO DAILY 12/19/20 04/14/23 sennosides 8.6 mg tablet (senna) 8.6 mg PO BID 12/19/20 04/14/23 etonogestrel 68 mg subdermal 68 mg subdermal DAILY 06/18/21 04/14/23 implant (Nexplanon) sodium bicarbonate 650 mg tablet 1,300 mg PO TID PRN Acid Reflux 06/18/21 04/14/23 albuterol sulfate 90 mcg/actuation 90 mcg inhalation DAILY 07/30/21 04/14/23 aerosol inhaler (Ventolin HFA) famotidine 20 mg tablet (Pepcid) 20 mg PO DAILY 07/30/21 04/14/23 tacrolimus 1 mg capsule, 3 mg PO Q12H 07/30/21 04/14/23 immediate-release tacrolimus 5 mg capsule, 10 mg PO Q12H 07/30/21 04/14/23 immediate-release tirzepatide 12.5 mg/0.5 mL mg subcut 01/27/23 04/14/23 subcutaneous pen injector (Lubna) Previous Rx's Medication Instructions Recorded acetaminophen 650 mg 650 mg PO Q12H 30 days #60 tabs 12/19/20 tablet,extended release albuterol sulfate 2.5 mg/3 mL 2.5 mg (3 mL) inhalation Q6H PRN 03/05/22 (0.083 %) solution for nebulization shortness of breath or wheezing 15 days #180 mL nebulizers (AeroEclipse II #1 ea 03/05/22 Nebulizer) lorazepam 0.5 mg tablet 0.5 mg PO DAILY anxiety 2 days #2 08/26/22 tabs apixaban 2.5 mg tablet (Eliquis) 2.5 mg PO BID #60 tabs 10/26/22 diazepam 2 mg tablet 2 mg PO BEDTIME PRN muscle spasm 02/12/23 #3 tabs Allergies Allergy/AdvReac Type Severity Reaction Status Date / Time lisinopril [LISINOPRIL] Allergy Intermediate EYES SWELL Verified 04/14/23 09:34 SHUT, angioedema, angioedema tramadol [TRAMADOL] Allergy Intermediate HIVES Verified 04/14/23 09:34 piperacillin [Zosyn] Allergy Mild rash Verified 04/14/23 09:34 cefazolin Allergy Unknown Unknown Verified 04/14/23 09:34 hydrocodone [From VICODIN] Allergy Unknown UNKNOWN Verified 04/14/23 09:34 ibuprofen [From Motrin] Allergy Unknown Unknown Verified 04/14/23 09:34 shellfish derived Allergy Unknown Unknown Verified 04/14/23 09:34 Sulfa (Sulfonamide Allergy Unknown UNKNOWN Verified 04/14/23 09:34 Antibiotics) [SULFA (SULFONAMIDE ANTIBIOTICS)] vancomycin Allergy Unknown rash Verified 04/14/23 09:34 azithromycin AdvReac Intermediate dizziness/A Verified 04/14/23 09:34 [facility] Past Medical History Medical History History of pulmonary embolism Chronic kidney disease Ankylosing spondylitis of lumbar region Right lumbar radiculopathy Surgical History S/P kidney transplant Status post dialysis Hx of bilateral breast reduction surgery Family History Family History Mother No problems noted. Father No problems noted. Social History Social History Household Members: None Housing: Apartment Are you a primary wound care specialist to a significant other at home: No Do you presently have visiting nurse or other home services: No Alcohol intake: never Patient Tobacco Use Status: Former Tobacco user Years Smoked: 15 e-Cigarette/Vaping Use: Never Used Second Hand Smoke Exposure: No Advance Directives: No Advance Directives Information Provided: No Advance Directives Date on File: 02/26/20 service: No Current occupational status: disabled Gender identity: Female Cognitive needs: No Hearing needs: No Vision needs: Yes (Glasses) Physical Exam ED Vital Signs: Vital Signs - 24 hr 04/18/23 12:32 Temperature 97.3 F Pulse Rate 81 Respiratory Rate 18 Blood Pressure 127/78 Pulse Oximetry 98 Oxygen Delivery Method Room Air BMI result Body Mass Index 38.4 Course Course Course Narrative: This is a rapid medical exam: Additional HPI, ROS, PE not included below will be deferred to primary provider. Patient is a 47-year-old female with history of asthma, CKD, PE, s/p kidney transplant presenting to the ED with complaint of an episode of dizziness this morning with associated dyspnea and chest tightness. States she accidentally took an extra dose of her Breo ellipta inhaler this morning. Was seen at urgent care a few days ago and was told swabs for RSV, flu and Covid were all negative. Ongoing dry cough. Plan: EKG, labs, viral swabs Medical Decision Making Lab Data Labs: Lab Results 04/18/23 Range/Units 12:56 COVID-19 (JEFF) Negative (Negative) COVID-19 Clin Com See Note Influenza Type A (KALLIE) Negative (Negative) Influenza Type B (KALLIE) Negative (Negative) Influenza A & B Note See Note Discharge Plan Discharge Clinical Impression: Diagnosis unknown Patient Disposition: Left W/O Completing Treatment Prescriptions: No Action (DME) nebulizers [AeroEclipse II Nebulizer] Misc See Rx Instructions .Route Qty: 1 0RF Rx Instructions: As directed albuterol sulfate 2.5 mg /3 mL (0.083 %) solution for nebulization 2.5 mg inhalation Q6H PRN (Reason: shortness of breath or wheezing) 15 Days Qty: 180 0RF Eliquis 2.5 mg Tablet 2.5 mg PO BID Qty: 60 4RF pantoprazole 20 mg tablet,delayed release (DR/EC) 1 tab PO DAILY amlodipine 10 mg tablet 1 tab PO DAILY docusate sodium [Dulcolax Stool Softener (dss)] 100 mg capsule 1 cap PO BID diazepam 2 mg tablet 2 mg PO BEDTIME PRN (Reason: muscle spasm) Qty: 3 0RF mycophenolate mofetil [CellCept] 250 mg capsule 500 mg PO BID prednisone 5 mg tablet 5 mg PO DAILY sennosides [senna] 8.6 mg tablet 8.6 mg PO BID acetaminophen 650 mg tablet extended release 650 mg PO Q12H 30 Days Qty: 60 0RF tacrolimus 1 mg capsule 3 mg PO Q12H tacrolimus 5 mg capsule 10 mg PO Q12H lorazepam 0.5 mg tablet 0.5 mg PO DAILY 2 Days Qty: 2 0RF Mounjaro 12.5 mg/0.5 mL pen injector subcut Nexplanon 68 mg implant 68 mg subdermal DAILY sodium bicarbonate 650 mg tablet 1,300 mg PO TID PRN (Reason: Acid Reflux) famotidine [Pepcid] 20 mg tablet 20 mg PO DAILY albuterol sulfate [Ventolin HFA] 90 mcg/actuation HFA aerosol inhaler 90 mcg inhalation DAILY Discharge Date/Time: 04/18/23 19:59
[2023-04-18 13:21] LABS: COVID-19 Test Negative (Negative); IDNOW Serial# 08D9AD1C; IDNOW Serial# BCCEAD1C; Influenza A Negative (Negative); Influenza B2 Negative (Negative)
--- NOTE | 2023-04-18 13:30 | MHC.EDTECH ---
Patient came into triage for labs and swabs. Patient was rube with the tech in triage. She was telling the tech what to do and how to take her blood and how she will not let the tech use certain needles. The tech redirected her and asked her to stop saying that and being rude. The patient stated that she isn't being rude. The tech stated that she is here for help and we're here to help her if she lets us. The tech attempted to get her blood. The patient did not wait long to ask for someone else to do the blood work before a needle was used on her. The tech let the patient know that she would have to wait till she went into the back for blood work. The patient stated that the tech could still swab her and the tech stated that she was going to. The patient then asked registration for the charge nurse. The tech still swabbed the patient and registration told her that the charge nurse was busy and both staff attempted to tell her she would need to wait in the waiting room. This patient refused to go out to the waiting room. The tech asked the COLLAR SEWER in triage to help explain to the patient why she has to wait if she would like someone else to get her blood. The patient continued to be rude and eventually went back to the waiting room after the COLLAR SEWER explained the situation and stated her only option is to wait and she needs to go to the waiting room.
--- OUTSIDE RECORDS SUMMARY | 2023-04-18 15:29 | XMS_ITS | Patient Health Record ---
Author Name Unknown [facility] Address [address] [place] [address] Care Team Providers Care Career Services Representative Name Role Phone Alexx Baum Primary Care Provider UnavailNan Rudolph Unavailable [phone] ALLERGIES Allergen (clinical drug ingredient) Drug/Non Drug [...] No Encounters Encounter Location Date Provider Diagnosis [facility] [address] [place] [address] 06/02/2022 Nan Phillips [facility] [address] 06/26/2022 Nan Phillips PLAN OF TREATMENT No Information Insurance Providers Payer Name Payer Address Payer Phone Subscriber Number Group Number Insured Name Patient Relationship to Insured Coverage Start Date Coverage End Date Medicare National Govt Sv[employer] [address] [place] [address] [id number] Dara Robles Self - patient is the insured MEDICAL (GENERAL) HISTORY Medical History History ICD Code Anxiety asthma Depression Kidney disease Surgical History Surgery Date(Month/Year)
--- OUTSIDE RECORDS SUMMARY | 2023-04-18 15:30 | XMS_ITS | Patient Health Record ---
Author Name Unknown Organization [facility] Address [address], [place] [id number] Support Name Relationship Address Phone Elmer Robles Emergency Contact [facility] [place]parza [facility] [phone] Dara Robles Guarantor Unknown Unavailable REASON FOR REFERRAL No Information SOCIAL HISTORY Sex Assigned At : Social History Observation Description Sex Assigned At Unknown PLAN OF TREATMENT No Information
== END 2023-04-18 19:59 | disposition left against medical advice (07) ==
PROVIDERS: Registered Nurse Emergency; Emergency Provider Emergency Medicine; PCP Physician Assistant
DX: R07.89 Other chest pain (principal); R42 Dizziness and giddiness; N18.9 Chronic kidney disease, unspecified; Z86.711 Personal history of pulmonary embolism; Z94.0 Kidney transplant status; Z11.52 Encounter for screening for COVID-19
CPT/HCPCS: 87502; 87635; 93005; 99283

== ENCOUNTER → 2023-04-18 11:58 | Outpatient (BNV) | payer MEDICARE, MEDICAID, SELFPAY | PROVIDERS: Emergency Provider Emergency Medicine; PCP Physician Assistant; Visit Provider Internal Medicine | DX: I49.3 Ventricular premature depolarization (principal) | CPT/HCPCS: 93010 ==

== ENCOUNTER 2023-05-19 | Outpatient (REF) | payer MEDICARE, MEDICAID, SELFPAY | END 2023-05-19 00:01 | disposition home or self-care (01) | LOC: HO.LNP | PROVIDERS: Visit Provider Physician Assistant | DX: K12.1 Other forms of stomatitis (principal) | CPT/HCPCS: 87255 ==

== ENCOUNTER 2023-05-19 16:23 | Outpatient (AMB) | payer MEDICARE, MEDICAID, SELFPAY ==
--- NOTE | 2023-05-19 16:25 | AM.OFFWIN_ITS ---
Intake Vital Signs 05/19/23 16:27 Height 5 ft 6 in BP 112/70 Blood Pressure Location Rt brachial Position Sitting Pulse 85 Pulse Source Pulse Oximeter Temp 98.5 F Temp Source Oral Pulse Oximetry (%) 100 Oxygen Delivery Method Room Air Intake Visit Reasons: EST/lesions in mouth(lobby) Intake Note: Pt is here c/o lesion in mouth that started 05/11/23. Patient Tobacco Use Status: Former Tobacco user Allergies lisinopril [LISINOPRIL] Allergy (Intermediate, Verified 05/03/23 08:48) EYES SWELL SHUT, angioedema, angioedema tramadol [TRAMADOL] Allergy (Intermediate, Verified 05/03/23 08:48) HIVES piperacillin [Zosyn] Allergy (Mild, Verified 05/03/23 08:48) rash cefazolin Allergy (Unknown, Verified 05/03/23 08:48) Unknown hydrocodone [From VICODIN] Allergy (Unknown, Verified 05/03/23 08:48) UNKNOWN ibuprofen [From Motrin] Allergy (Unknown, Verified 05/03/23 08:48) Unknown shellfish derived Allergy (Unknown, Verified 05/03/23 08:48) Unknown Sulfa (Sulfonamide Antibiotics) [SULFA (SULFONAMIDE ANTIBIOTICS)] Allergy (Unknown, Verified 05/03/23 08:48) UNKNOWN vancomycin Allergy (Unknown, Verified 05/03/23 08:48) rash azithromycin Adverse Reaction (Intermediate, Verified 05/03/23 08:48) dizziness/AVERY HPI HPI Comments History of Present Illness Details Patient presents to the office for confirmation of herpes or not + mouth lesions to roof of mouth x 1 floyd barriga Went to the [facility] and admits to sexual activity with partner Came back and noticed lesions in mouth; came back on Tested for STDs last week by OB and only + BV Kidney transplant MD told her lesions look like herpes and sent in valtrex She said slight ST tender to swallow but gums are painful Mouth of the mouth only Pain level is worsening with eating No pain level given No medicine for it PFSH Medical History History of pulmonary embolism Chronic kidney disease Ankylosing spondylitis of lumbar region Right lumbar radiculopathy Surgical History S/P kidney transplant Status post dialysis Hx of bilateral breast reduction surgery Family History Mother No problems noted. Father No problems noted. Social History Household Members: None Housing: Apartment Are you a primary workforce investment act career manager to a significant other at home: No Do you presently have visiting nurse or other home services: No Alcohol intake: never Patient Tobacco Use Status: Former Tobacco user Years Smoked: 15 e-Cigarette/Vaping Use: Never Used Second Hand Smoke Exposure: No Advance Directives Date on File: 02/26/20 service: No Current occupational status: disabled Gender identity: Female Cognitive needs: No Hearing needs: No Vision needs: Yes (Glasses) Female Reproductive History Menstrual Age of Menarche: 17 Review of Systems Const Denies chills, Denies fatigue and Denies fever(s) ENT Reports mouth lesions, Reports sore throat, Denies throat swelling and Denies tongue swelling Card Denies dyspnea Resp Denies dyspnea Endo Denies fatigue Aller/Immun Denies throat swelling and Denies tongue swelling Physical Exam Vital Signs: Last Vital Signs Temp 98.5 F 05/19/23 16:27 Pulse 85 05/19/23 16:27 BP 112/70 05/19/23 16:27 Pulse Ox 100 05/19/23 16:27 Oxygen Delivery Method Room Air 05/19/23 16:27 General: Non-toxic, NAD. Speaking full sentences. Skin: Warm dry throughout Eye: EOMI HENT: Airway patent. Uvula midline. No pharyngeal erythema or edema. No SUPERVISOR WET POUR. No exudates or abscess. Pt has 4-5 very small erythematous circular areas of mucosal break down on center of roof of mouth without drainage. No lesions to lateral gingivae or gums. Lymph: No lymphadenopathy Respiratory: No respiratory distress Neurology: A/O. No aphasia or facial droop. Gait without abnormality Psych: Good mood and affect Results AMB Rapid Strep AMB Rapid Strep Negative Last Edit by Le Wyman CMA on 05/19/23 16:50 Assessment & Plan Assessment & Plan (1) Stomatitis: Code(s): K12.1 - Other forms of stomatitis Plan: Patient seen and evaluated. Herpes concern is usually not on roof of mouth No lesions to external lips Strep: negative took viral herpes swab of lesion Airway patent. Discussed avoiding hot, spicy, acidic foods Any throat tightness, SOB worsening pain, be re-evaluated Patient gave verbal understanding and had no additional questions or concerns at time of discharge All questions answered Orders: Orders AMB Rapid Strep Screen Today Z13.9 - Encounter for screening, unspecified Herpes Virus Culture rflx Type Today K12.1 - Other forms of stomatitis Coding Level of Care Code Est Pt Level 3 (44598) Diagnoses Stomatitis K12.1
[2023-05-19 16:27] VITALS: BP 112/70; PULSE 85; TEMP 36.9; O2SAT 100
--- OUTSIDE RECORDS SUMMARY | 2023-05-19 16:28 | XMS_ITS | Patient Health Record ---
Author Name Unknown [facility] Address [address] [place] [address] Care Team Providers Care Instrumental Musician Name Role Phone Alexx Baum Primary Care Provider UnavailNan Rudolph Unavailable [phone] ALLERGIES Allergen (clinical drug ingredient) Drug/Non Drug [...] No Encounters Encounter Location Date Provider Diagnosis [facility] [place] [address] [place] [address] 06/02/2022 Nan Phillips [facility] [address] 06/26/2022 Nna Phillips PLAN OF TREATMENT No Information Insurance Providers Payer Name Payer Address Payer Phone Subscriber Number Group Number Insured Name Patient Relationship to Insured Coverage Start Date Coverage End Date Medicare National Govt Svcs Inc [address] [place] [address] [id number] Dara Robles Self - patient is the insured MEDICAL (GENERAL) HISTORY Medical History History ICD Code Anxiety asthma Depression Kidney disease Surgical History Surgery Date(Month/Year)
--- OUTSIDE RECORDS SUMMARY | 2023-05-19 16:29 | XMS_ITS | Patient Health Record ---
Author Name Unknown Organization [facility] Address [address] [place], [place] [id number] Support Name Relationship Address Phone Elmer Robles Emergency Contact [facility] [place] [facility] [phone] Dara Robles Guarantor Unknown Unavailable REASON FOR REFERRAL No Information SOCIAL HISTORY Sex Assigned At : Social History Observation Description Sex Assigned At Unknown PLAN OF TREATMENT No Information
== END 2023-05-19 17:36 | disposition home or self-care (01) ==
PROVIDERS: PCP Physician Assistant; Visit Provider Physician Assistant
DX: K12.1 Other forms of stomatitis (principal)
CPT/HCPCS: 87880; 99213

== ENCOUNTER 2023-05-26 14:45 | Outpatient (AMB) | payer MEDICARE, MEDICAID, SELFPAY ==
[2023-05-26 14:46] VITALS: BP 120/70; PULSE 82; TEMP 36.4; O2SAT 99; BMI 36.2
--- NOTE | 2023-05-26 14:46 | AM.OFFWIN_ITS ---
Intake Vital Signs 05/26/23 14:46 Height 5 ft 6 in Weight 224 lb BMI 36.2 BP 120/70 Blood Pressure Location Lt brachial Position Sitting Pulse 82 Pulse Source Pulse Oximeter Temp 97.6 F Pulse Oximetry (%) 99 Oxygen Delivery Method Room Air Intake Visit Reasons: morning blurred vision/in lobby Intake Note: pt is here today for blurred vision started 4 days Patient Tobacco Use Status: Former Tobacco user Allergies lisinopril [LISINOPRIL] Allergy (Intermediate, Verified 05/26/23 14:46) EYES SWELL SHUT, angioedema, angioedema tramadol [TRAMADOL] Allergy (Intermediate, Verified 05/26/23 14:46) HIVES piperacillin [Zosyn] Allergy (Mild, Verified 05/26/23 14:46) rash cefazolin Allergy (Unknown, Verified 05/26/23 14:46) Unknown hydrocodone [From VICODIN] Allergy (Unknown, Verified 05/26/23 14:46) UNKNOWN ibuprofen [From Motrin] Allergy (Unknown, Verified 05/26/23 14:46) Unknown shellfish derived Allergy (Unknown, Verified 05/26/23 14:46) Unknown Sulfa (Sulfonamide Antibiotics) [SULFA (SULFONAMIDE ANTIBIOTICS)] Allergy (Unknown, Verified 05/26/23 14:46) UNKNOWN vancomycin Allergy (Unknown, Verified 05/26/23 14:46) rash azithromycin Adverse Reaction (Intermediate, Verified 05/26/23 14:46) dizziness/AVERY Do you need a note to return to daycare/school/sports/work: No HPI HPI Comments History of Present Illness Details This is a 47-year-old female with a past medical history of chronic kidney disease s/p renal transplant, diabetes, asthma and obstructive sleep apnea presenting for evaluation of lightheadedness and blurry vision upon waking in the morning for the past 4 days. Patient states her blood glucose has been between 102 and 112 upon waking. Patient states that her symptoms will resolve in no less than an hour. Patient denies having a headache, neck pain, fevers, chills, chest pain, shortness for breath or cough. Patient states that she has not been using her sleep apnea machine for the past 5 days because she has new nasal pillows that are uncomfortable. Patient states at this time she is not lightheaded and has no visual changes. PFSH Medical History History of pulmonary embolism Chronic kidney disease Ankylosing spondylitis of lumbar region Right lumbar radiculopathy Surgical History S/P kidney transplant Status post dialysis Hx of bilateral breast reduction surgery Family History Mother No problems noted. Father No problems noted. Social History Household Members: None Housing: Apartment Are you a primary transitional care nurse to a significant other at home: No Do you presently have visiting nurse or other home services: No Alcohol intake: never Patient Tobacco Use Status: Former Tobacco user Years Smoked: 15 e-Cigarette/Vaping Use: Never Used Second Hand Smoke Exposure: No Advance Directives Date on File: 02/26/20 service: No Current occupational status: disabled Gender identity: Female Cognitive needs: No Hearing needs: No Vision needs: Yes (Glasses) Female Reproductive History Menstrual Age of Menarche: 17 Review of Systems Const Details: Lightheadedness All systems reviewed & are unremarkable except as noted in HPI and below Reports as per HPI Eyes Reports no additional complaints and Reports blurry vision (resolved) ENT Reports no additional complaints Card Reports no additional complaints Resp Reports no additional complaints Neuro Reports no additional complaints Psych Reports no additional complaints Physical Exam Const General: cooperative, comfortable and no acute distress Nutritional Appearance: overweight Orientation/consciousness: patient oriented x3 Limitations: no limitations HEENT Head: Yes normal to inspection and Yes normocephalic Ears: hearing grossly normal bilaterally, external ears normal, TM's normal bilaterally and EAC's normal General nose exam: Normal external nose present Face and sinus: Yes normal facial exam Mouth: Normal oral and palatal mucosa present Throat: Yes posterior oropharynx normal Eyes Eyelids: Yes eyelids normal Conjunctivae: conjunctivae normal Sclerae: sclerae normal Corneas: corneas normal Pupils: Equal, round and reactive pupils present EOM: EOMs intact bilaterally Resp Effort & Inspection: normal respiratory effort, able to speak in complete sentences, no audible wheezes, no cough and no respiratory distress Auscultation: clear to auscultation bilaterally Cardio Rate: regular rate Rhythm: regular rhythm Skin General skin exam: no rashes or lesions noted Neuro General: patient oriented x3 Cranial nerves: Yes Equal, round and reactive pupils present Psych Appearance: grossly normal Mental Status: mental status grossly normal Insight: Good insight present (Psych) Judgement: Good judgement present (Psych) Results AMB Random Glucose (hemocue) AMB Random Glucose (hemocue) 135 mg/dL Last Edit by LANDON Eng 05/26/23 15:13 Results Reviewed Results Reviewed: Blood glucose 135 Assessment & Plan Assessment & Plan (1) Lightheadedness: Comment: Patient is neurologically intact and has no visual changes at the time of this visit. Blood glucose is 135. Code(s): R42 - Dizziness and giddiness Plan: Patient to resume using her CPAP machine or alternatively she will call [facility] for a new mask/nasal pillows. Patient is in agreement with this plan of care. Orders: Orders AMB Random Glucose (hemocue) Today Z13.9 - Encounter for screening, unspecified Medications: New albuterol sulfate 90 mcg/actuation 1 inh inhalation QID 6 months PRN 6.7 grams 0RF shortness of breath or wheezing Coding Level of Care Code Est Pt Level 3 (11616) Diagnoses Lightheadedness R42 Time Spent (min) 25
--- OUTSIDE RECORDS SUMMARY | 2023-05-26 14:47 | XMS_ITS | Patient Health Record ---
Author Name Unknown [facility] Address [address] [facility] [place] [address] Care Team Providers Care Remnants Cutter Name Role Phone Alexx Baum Primary Care Provider UnavailNan Rudolph Unavailable [phone] ALLERGIES Allergen (clinical drug ingredient) Drug/Non Drug [...] No Encounters Encounter Location Date Provider Diagnosis [facility] [place] [address] [place] [address] 06/02/2022 Nan Phillips [facility] [address] 06/26/2022 Nan Phillips PLAN OF TREATMENT No Information Insurance Providers Payer Name Payer Address Payer Phone Subscriber Number Group Number Insured Name Patient Relationship to Insured Coverage Start Date Coverage End Date Medicare National Govt Svcs Inc [address] [place] [address] [id number] Dara Robles Self - patient is the insured MEDICAL (GENERAL) HISTORY Medical History History ICD Code Anxiety asthma Depression Kidney disease Surgical History Surgery Date(Month/Year)
--- OUTSIDE RECORDS SUMMARY | 2023-05-26 14:48 | XMS_ITS | Patient Health Record ---
Author Name Unknown Organization [facility] Address [address] [place], [place] [id number] Support Name Relationship Address Phone Elmer Robles Emergency Contact [facility] [place] [facility] [phone] Dara Robles Guarantor Unknown Unavailable REASON FOR REFERRAL No Information SOCIAL HISTORY Sex Assigned At : Social History Observation Description Sex Assigned At Unknown PLAN OF TREATMENT No Information
== END 2023-05-26 15:19 | disposition home or self-care (01) ==
PROVIDERS: PCP Physician Assistant; Visit Provider Physician Assistant
DX: R42 Dizziness and giddiness (principal)
CPT/HCPCS: 82948; 99213

== ENCOUNTER 2023-06-04 20:30 | Emergency (ER) | payer MEDICARE, MEDICAID, SELFPAY ==
[2023-06-04 20:48] VITALS: BP 142/98; PULSE 76; O2SAT 100
[2023-06-04 20:50] VITALS: BP 128/46; PULSE 79; RESP 16; TEMP 36.8; O2SAT 95; BMI 35.8
--- OUTSIDE RECORDS SUMMARY | 2023-06-04 21:03 | XMS_ITS | Patient Health Record ---
Author Name Unknown [facility] Address [address] [facility] [place] [address] Care Team Providers Care Tariff Expert Name Role Phone Alexx Baum Primary Care Provider UnavailNan Rudolph Unavailable [phone] ALLERGIES Allergen (clinical drug ingredient) Drug/Non Drug [...] No Encounters Encounter Location Date Provider Diagnosis [facility] [place] [address] [place] [address] 06/26/2022 Nan Phillips PLAN OF TREATMENT No Information Insurance Providers Payer Name Payer Address Payer Phone Subscriber Number Group Number Insured Name Patient Relationship to Insured Coverage Start Date Coverage End Date Medicare National Govt Svcs [employer] [address] [place] [address] [id number] Dara Robles Self - patient is the insured MEDICAL (GENERAL) HISTORY Medical History History ICD Code Anxiety asthma Depression Kidney disease Surgical History Surgery Date(Month/Year)
--- NOTE | 2023-06-04 21:04 | ED.CHESTPAIN ---
HPI - Chest Pain General Chief Complaint: Chest Pain Stated Complaint: chest tightness,worse w/ inspiration,dizzy Time Seen by Provider: 06/04/23 20:34 Source: patient Mode of arrival: ambulatory Limitations: no limitations History of Present Illness HPI narrative: Patient's history of end-stage renal disease status post renal transplant in 2020 complaining of mid chest sharp pain just prior to arrival with intermittent dizziness off and on for last few days chest pain started just prior to arrival pain increased on palpation no shortness of breath no cough fever or chills patient has been relax after arrival in the ER Related Data Home Medications Medication Instructions Recorded Confirmed amlodipine 10 mg tablet 1 tab PO DAILY 11/30/20 04/14/23 docusate sodium 100 mg capsule 1 cap PO BID 11/30/20 04/14/23 (Dulcolax Stool Softener (docusate)) pantoprazole 20 mg tablet,delayed 1 tab PO DAILY 11/30/20 04/14/23 release mycophenolate mofetil 250 mg 500 mg PO BID 12/19/20 04/14/23 capsule (CellCept) prednisone 5 mg tablet 5 mg PO DAILY 12/19/20 04/14/23 sennosides 8.6 mg tablet (senna) 8.6 mg PO BID 12/19/20 04/14/23 etonogestrel 68 mg subdermal 68 mg subdermal DAILY 06/18/21 04/14/23 implant (Nexplanon) albuterol sulfate 90 mcg/actuation 90 mcg inhalation DAILY 07/30/21 04/14/23 aerosol inhaler (Ventolin HFA) famotidine 20 mg tablet (Pepcid) 20 mg PO DAILY 07/30/21 04/14/23 tacrolimus 1 mg capsule, 3 mg PO Q12H 07/30/21 04/14/23 immediate-release tacrolimus 5 mg capsule, 10 mg PO Q12H 07/30/21 04/14/23 immediate-release tirzepatide 12.5 mg/0.5 mL mg subcut 01/27/23 04/14/23 subcutaneous pen injector (Lubna) blood sugar diagnostic (TempMineTouch #10 ea 05/26/23 Verio test strips) lancets 33 gauge (OneTouch Delyolanda #100 ea 05/26/23 Plus Lancet) pantoprazole 40 mg tablet,delayed 40 mg PO DAILY 05/26/23 release valganciclovir 450 mg tablet mg PO 05/26/23 Previous Rx's Medication Instructions Recorded acetaminophen 650 mg 650 mg PO Q12H 30 days #60 tabs 12/19/20 tablet,extended release albuterol sulfate 2.5 mg/3 mL 2.5 mg (3 mL) inhalation Q6H PRN 03/05/22 (0.083 %) solution for nebulization shortness of breath or wheezing 15 days #180 mL nebulizers (AeroEclipse II #1 ea 03/05/22 Nebulizer) albuterol sulfate 90 mcg/actuation 1 inh inhalation QID PRN shortness 05/26/23 aerosol inhaler of breath or wheezing 6 months #6.7 grams Allergies Allergy/AdvReac Type Severity Reaction Status Date / Time lisinopril [LISINOPRIL] Allergy Intermediate EYES SWELL Verified 06/04/23 20:50 SHUT, angioedema, angioedema tramadol [TRAMADOL] Allergy Intermediate HIVES Verified 06/04/23 20:50 piperacillin [Zosyn] Allergy Mild rash Verified 06/04/23 20:50 cefazolin Allergy Unknown Unknown Verified 06/04/23 20:50 hydrocodone [From VICODIN] Allergy Unknown UNKNOWN Verified 06/04/23 20:50 ibuprofen [From Motrin] Allergy Unknown Unknown Verified 06/04/23 20:50 shellfish derived Allergy Unknown Unknown Verified 06/04/23 20:50 Sulfa (Sulfonamide Allergy Unknown UNKNOWN Verified 06/04/23 20:50 Antibiotics) [SULFA (SULFONAMIDE ANTIBIOTICS)] vancomycin Allergy Unknown rash Verified 06/04/23 20:50 azithromycin AdvReac Intermediate dizziness/A Verified 06/04/23 20:50 KI Review of Systems Review of Systems: Yes all other systems are reviewed and are negative [facility] Past Medical History Medical History History of pulmonary embolism Chronic kidney disease Ankylosing spondylitis of lumbar region Right lumbar radiculopathy Surgical History S/P kidney transplant Status post dialysis Hx of bilateral breast reduction surgery Family History Family History Mother No problems noted. Father No problems noted. Social History Social History Household Members: None Housing: Apartment Are you a primary out of school hours care worker to a significant other at home: No Do you presently have visiting nurse or other home services: No Alcohol intake: never Patient Tobacco Use Status: Former Tobacco user Years Smoked: 15 Smoked in Last 30 Days: No e-Cigarette/Vaping Use: Never Used Second Hand Smoke Exposure: No Advance Directives: No Advance Directives Information Provided: No Advance Directives Date on File: 02/26/20 Patient : No service: No Current occupational status: disabled Gender identity: Female Cognitive needs: No Hearing needs: No Vision needs: Yes (Glasses) Physical Exam Vital Signs: Vital Signs: Last Vital Signs Temp 98.3 F 06/04/23 20:50 Pulse 78 06/04/23 21:20 Resp 21 H 06/04/23 21:20 BP 140/69 H 06/04/23 21:20 Pulse Ox 96 06/04/23 21:20 O2 Del Method Room Air 06/04/23 21:20 BMI result Body Mass Index 35.8 Appearance: Alert. Oriented X3. No acute distress. ENT: Pharynx normal. Oral Mucosa moist Neck: Normal inspection. Neck supple. CVS: Normal heart rate and rhythm. Pulses normal. Respiratory: No respiratory distress. Equal air entry bilateral, no wheezing/rales/rhonchi mild midsternal tenderness on palpation Abdomen: Soft and nontender. Bowel sounds are present, no mass palpable, no CVA tenderness Skin: Skin warm and dry. Normal skin color. Normal skin turgor. Extremities: No lower extremity edema. No calf tenderness Neuro: Oriented X 3. Medical Decision Making Medical Decision Making [facility] Narrative: Patient atypical chest pain EKG normal troponin negative patient has been laughing talking to the family member after arrival in the ER no distress noticed patient has been here multiple times in the past asking for pain medication. Will discharge patient home advised to follow with PCP Differential Diagnosis Differential Diagnoses: The differential diagnosis associated with the presentation includes ACS/chest wall pain/gastritis/esophagitis Admission/Observation Consideration of admission/observation: Escalation of care including admission/observation considered Lab Data [facility] Lab Attestation statement: I reviewed the patient's lab results. 06/04/23 21:40 06/04/23 22:22 Labs: Lab Results 06/04/23 06/04/23 Range/Units 21:40 22:22 WBC 11.4 H (4.8-10.8) X10*3/uL RBC 4.93 (4.20-5.50) X10*6/uL Hgb 13.2 (12.0-16.0) g/dl Hct 40.9 (37.0-47.0) % MCV 83.0 (80.0-98.0) fL MCH 26.8 L (27.0-33.0) pg MCHC 32.3 (31.0-35.0) g/dl RDW 15.7 (11.0-16.0) % Plt Count 300 (160-400) X10*3/uL MPV 10.9 (9.4-12.3) fL Immature Gran % (Auto) 0.6 H (0.0-0.4) % Neut % (Auto) 77.7 H (45-73) % Lymph % (Auto) 10.1 L (20-40) % [place] % (Auto) 9.0 (2-11) % Eos % (Auto) 2.3 (0-4) % Baso % (Auto) 0.3 (0-2) % Lymph # (Auto) 1.2 (1.2-4.9) X10*3/uL [place] # (Auto) 1.0 (0.1-1.2) X10*3/uL Eos # (Auto) 0.3 (0.0-0.4) X10*3/uL Baso # (Auto) 0.0 (0.0-0.2) X10*3/uL Abs Immat Gran (auto) 0.07 H (0.00-0.03) X10*3/uL Absolute Neuts (auto) 8.9 H (2.0-8.3) x10*3/uL Absolute Nucleated RBC 0.000 (0.0-0.012) X10*3/uL Nucleated RBC % (auto) 0.0 (0.0-0.2) /100WBC Sodium 136 (135-145) mmol/L Potassium 3.3 (3.3-5.1) mmol/L Chloride 110 H (96-108) mmol/L Carbon Dioxide 16 L (22-29) mmol/L Anion Gap 13 (12-20) BUN 24 H (9-16) mg/dL Creatinine 1.36 (0.5-1.4) mg/dL Estim Creat Clear Calc 61.9 Estimated GFR 42 Random Glucose 86 (60-115) mg/dL Calcium 9.3 (8.4-10.2) mg/dL Total Bilirubin 0.3 (0.0-1.0) mg/dL AST 12 (5-31) U/L ALT 12 (0-31) U/L Alkaline Phosphatase 83 (39-117) U/L Troponin I High Sens 9.4 (<3.5-17.0) ng/L Total Protein 7.9 (6.5-8.0) g/dL Albumin 3.7 (3.5-5.0) g/dL Independent Interpretation I performed an independent interpretation of an: EKG Interpretation: Normal sinus rhythm heart rate 78 beats per minute normal interval normal axis normal ST T wave no acute ischemia Discharge Plan Discharge Clinical Impression: Atypical chest pain Patient Disposition: Home, Self-Care Instructions: Chest Pain (ED) Additional Instructions: The initial workup for cardiac cause for chest pain is negative Follow-up with your PCP Prescriptions: No Action (DME) nebulizers [AeroEclipse II Nebulizer] Misc See Rx Instructions .Route Qty: 1 0RF Rx Instructions: As directed albuterol sulfate 2.5 mg /3 mL (0.083 %) solution for nebulization 2.5 mg inhalation Q6H PRN (Reason: shortness of breath or wheezing) 15 Days Qty: 180 0RF pantoprazole 20 mg tablet,delayed release (DR/EC) 1 tab PO DAILY amlodipine 10 mg tablet 1 tab PO DAILY docusate sodium [Dulcolax Stool Softener (dss)] 100 mg capsule 1 cap PO BID mycophenolate mofetil [CellCept] 250 mg capsule 500 mg PO BID prednisone 5 mg tablet 5 mg PO DAILY sennosides [senna] 8.6 mg tablet 8.6 mg PO BID acetaminophen 650 mg tablet extended release 650 mg PO Q12H 30 Days Qty: 60 0RF tacrolimus 1 mg capsule 3 mg PO Q12H tacrolimus 5 mg capsule 10 mg PO Q12H Mounjaro 12.5 mg/0.5 mL pen injector subcut (DME) lancets [OneTouch Delica Plus Lancet] 33 gauge misc See Rx Instructions .ROUTE TID Qty: 100 Rx Instructions: As directed (DME) OneTouch Verio test strips Strip See Rx Instructions .ROUTE TID Qty: 10 Rx Instructions: As directed valganciclovir 450 mg tablet PO pantoprazole 40 mg tablet,delayed release (DR/EC) 40 mg PO DAILY albuterol sulfate 90 mcg/actuation HFA aerosol inhaler 1 inh inhalation QID PRN (Reason: shortness of breath or wheezing) 180 Days Qty: 6.7 0RF Nexplanon 68 mg implant 68 mg subdermal DAILY famotidine [Pepcid] 20 mg tablet 20 mg PO DAILY albuterol sulfate [Ventolin HFA] 90 mcg/actuation HFA aerosol inhaler 90 mcg inhalation DAILY
--- OUTSIDE RECORDS SUMMARY | 2023-06-04 21:05 | XMS_ITS | Patient Health Record ---
Author Name Unknown Organization [facility] Address [address], [place] [id number] Support Name Relationship Address Phone Elmer Robles Emergency Contact [facility] [place] [facility]par[facility] [phone] Dara Robles Guarantor Unknown Unavailable REASON FOR REFERRAL No Information SOCIAL HISTORY Sex Assigned At : Social History Observation Description Sex Assigned At Unknown PLAN OF TREATMENT No Information
[2023-06-04 21:20] VITALS: BP 140/69; PULSE 78; RESP 21; O2SAT 96
--- NOTE | 2023-06-04 21:20 | ECG_ITS ---
Test Reason : CHEST PAIN Blood Pressure : / mmHG Vent. Rate : 078 BPM Atrial Rate : 078 BPM P-R Int : 162 ms QRS Dur : 082 ms QT Int : 408 ms P-R-T Axes : 040 -08 049 degrees QTc Int : 465 ms Normal sinus rhythm Normal ECG When compared with ECG of 18-APR-2023 11:58, Premature supraventricular complexes are no longer Present Referred By: Nirmal De La Rosa Electronically Signed By:Ed Fernandez
[2023-06-04 21:47] LABS: MANUAL DIFF FLAG NO
[2023-06-04 21:48] LABS: Basophils Percent Auto 0.3 % (0-2); Eosinophils Absolute Auto 0.3 X10*3/uL (0.0-0.4); Eosinophils Percent Auto 2.3 % (0-4); Hematocrit 40.9 % (37.0-47.0); Hemoglobin 13.2 g/dl (12.0-16.0); Imm Gran Abs Auto 0.07 X10*3/uL (0.00-0.03); Imm Gran Pct Auto 0.6 % (0.0-0.4); Lymphocytes Absolute Auto 1.2 X10*3/uL (1.2-4.9); Lymphocytes Percent Auto 10.1 % (20-40); Mean Corpuscular HGB Conc 32.3 g/dl (31.0-35.0); Mean Corpuscular Hemoglobin 26.8 pg (27.0-33.0); Mean Platelet Volume 10.9 fL (9.4-12.3); Neutrophils Absolute Auto 8.9 x10*3/uL (2.0-8.3); Neutrophils Percent Auto 77.7 % (45-73); Platelet Count 300 X10*3/uL (160-400); Red Blood Count 4.93 X10*6/uL (4.20-5.50); Red Cell Distribution Width 15.7 % (11.0-16.0); White Blood Count 11.4 X10*3/uL (4.8-10.8)
[2023-06-04 22:42] LABS: Alanine Aminotransferase 12 U/L (0-31); Albumin Level 3.7 g/dL (3.5-5.0); Alkaline Phosphatase 83 U/L (39-117); Anion Gap 13 (12-20); Aspartate Amino Transferase 12 U/L (5-31); Bilirubin Total 0.3 mg/dL (0.0-1.0); Blood Urea Nitrogen 24 mg/dL (9-16); Calcium 9.3 mg/dL (8.4-10.2); Carbon Dioxide 16 mmol/L (22-29); Chloride 110 mmol/L (96-108); Creatinine Clr Calc Pharmacy 61.9; Estimated Glomerular Filt Rate 42; Glucose Random 86 mg/dL (60-115); Potassium 3.3 mmol/L (3.3-5.1); Sodium 136 mmol/L (135-145); Total Protein 7.9 g/dL (6.5-8.0)
[2023-06-04 22:49] LABS: Troponin-I High Sensitivity 9.4 ng/L (<3.5-17.0)
[2023-06-05 00:03] VITALS: BP 132/62; PULSE 79; O2SAT 94
[2023-06-05] MEDS: oxyCODONE HCl Immed Release 5 MG TABLET 10 MG PO (00:03)
== END 2023-06-05 00:20 | disposition home or self-care (01) ==
PROVIDERS: Emergency Provider Internal Medicine; PCP Physician Assistant
DX: R07.89 Other chest pain (principal); R42 Dizziness and giddiness; Z87.891 Personal history of nicotine dependence; Z79.899 Other long term (current) drug therapy
CPT/HCPCS: 36415; 80053; 84484; 85025; 93005; 99283; 99285

== ENCOUNTER → 2023-06-04 21:20 | Outpatient (BNV) | payer MEDICARE, MEDICAID, SELFPAY | PROVIDERS: Emergency Provider Internal Medicine; PCP Physician Assistant; Visit Provider Internal Medicine Cardiovascular Disease | DX: R07.9 Chest pain, unspecified (principal) | CPT/HCPCS: 93010 ==

== ENCOUNTER 2023-06-16 08:23 | Outpatient (AMB) | payer MEDICARE, MEDICAID, SELFPAY ==
[2023-06-16 08:52] VITALS: BP 116/68; PULSE 91; TEMP 36.6; O2SAT 100; BMI 35.5
--- NOTE | 2023-06-16 08:52 | MHC.OFFWIV ---
Intake Vital Signs 06/16/23 08:52 Height 5 ft 6 in Weight 220 lb BMI 35.5 BP 116/68 Blood Pressure Location Lt brachial Position Sitting Pulse 91 Pulse Source Pulse Oximeter Temp 97.9 F Temp Source Temporal Artery Scan Pulse Oximetry (%) 100 Oxygen Delivery Method Room Air Intake Visit Reasons: EST/cyst between legs (lobby) Intake Note: pt is here today for cyst between legs started 2 days ago Patient Tobacco Use Status: Former Tobacco user Allergies lisinopril [LISINOPRIL] Allergy (Intermediate, Verified 06/16/23 08:53) EYES SWELL SHUT, angioedema, angioedema tramadol [TRAMADOL] Allergy (Intermediate, Verified 06/16/23 08:53) HIVES piperacillin [Zosyn] Allergy (Mild, Verified 06/16/23 08:53) rash cefazolin Allergy (Unknown, Verified 06/16/23 08:53) Unknown hydrocodone [From VICODIN] Allergy (Unknown, Verified 06/16/23 08:53) UNKNOWN ibuprofen [From Motrin] Allergy (Unknown, Verified 06/16/23 08:53) Unknown shellfish derived Allergy (Unknown, Verified 06/16/23 08:53) Unknown Sulfa (Sulfonamide Antibiotics) [SULFA (SULFONAMIDE ANTIBIOTICS)] Allergy (Unknown, Verified 06/16/23 08:53) UNKNOWN vancomycin Allergy (Unknown, Verified 06/16/23 08:53) rash azithromycin Adverse Reaction (Intermediate, Verified 06/16/23 08:53) dizziness/AVERY Do you need a note to return to daycare/school/sports/work: No HPI HPI Comments History of Present Illness Details 47 y/o female presents to walk in clinic with c/o feeling small lumps on bilateral lower extremities. She is not sure when the problem started. Reports pain with touching them. Denies any recent injury or trauma. [facility]LY [facility] Medical History History of pulmonary embolism Chronic kidney disease Ankylosing spondylitis of lumbar region Right lumbar radiculopathy Surgical History S/P kidney transplant Status post dialysis Hx of bilateral breast reduction surgery Family History Mother No problems noted. Father No problems noted. Social History Household Members: None Housing: Apartment Are you a primary customer care team coach to a significant other at home: No Do you presently have visiting nurse or other home services: No Alcohol intake: never Patient Tobacco Use Status: Former Tobacco user Years Smoked: 15 e-Cigarette/Vaping Use: Never Used Second Hand Smoke Exposure: No Advance Directives Date on File: 02/26/20 service: No Current occupational status: disabled Gender identity: Female Cognitive needs: No Hearing needs: No Vision needs: Yes (Glasses) Female Reproductive History Menstrual Age of Menarche: 17 Review of Systems Const All systems reviewed & are unremarkable except as noted in HPI and below Physical Exam Vital Signs: Last Vital Signs Temp 97.9 F 06/16/23 08:52 Pulse 91 06/16/23 08:52 BP 116/68 06/16/23 08:52 Pulse Ox 100 06/16/23 08:52 Oxygen Delivery Method Room Air 06/16/23 08:52 BMI result Body Mass Index 35.5 Const General: comfortable and no acute distress Orientation/consciousness: patient oriented x3 Skin Lesions: no lesions Rashes: no rashes Neuro General: patient oriented x3 Gait exam (Neuro): Normal gait present Extrem Right lower extremity: lower leg (Dry skin, peeling off, old scars noticed. ) Details: normal to inspection, no edema, crepitus and deformity; no erythema and no localized swelling Left lower extremity: lower leg Details: normal to inspection, erythema, tenderness and no edema Psych Speech and movement: Clear speech present Assessment & Plan Assessment & Plan (1) Pain, lower extremity: Code(s): M79.606 - Pain in leg, unspecified Qualifiers: Laterality: bilateral Qualified Code(s): M79.604 - Pain in right leg; M79.605 - Pain in left leg Plan: - No visible cysts or lumps - No tenderness - Normal gain - Normal examination of lower legs. Coding Level of Care Code Est Pt Level 3 (23385) Diagnoses Pain in both lower extremities M79.604; M79.605 Laterality: bilateral Time Spent (min) 10
== END 2023-06-16 10:20 | disposition home or self-care (01) ==
PROVIDERS: PCP Physician Assistant; Visit Provider Nurse Practitioner Family
DX: M79.604 Pain in right leg (principal); M79.605 Pain in left leg
CPT/HCPCS: 99213

== ENCOUNTER 2023-06-17 03:29 | Emergency (ER) | payer MEDICARE, MEDICAID, SELFPAY ==
[2023-06-17 03:33] VITALS: BP 122/74; PULSE 80; RESP 16; TEMP 36.4; O2SAT 100; BMI 35.5
--- NOTE | 2023-06-17 04:57 | ED_ITS ---
HPI - General Adult General Chief complaint: General Medical Stated complaint: ?Leg pain Time Seen by Provider: 06/17/23 04:14 Source: patient Mode of arrival: ambulatory History of Present Illness HPI narrative: 47-year-old female who presents with concerns regarding tender lumps to bilateral lower legs but denies any traumatic injuries. Patient states that started approximately 2 days ago and she has been seen at urgent care for this condition and was told that she had small lymphoid tissue. She denies any associated fever, chills. Related Data Home Medications Medication Instructions Recorded Confirmed amlodipine 10 mg tablet 1 tab PO DAILY 11/30/20 04/14/23 docusate sodium 100 mg capsule 1 cap PO BID 11/30/20 04/14/23 (Dulcolax Stool Softener (docusate)) pantoprazole 20 mg tablet,delayed 1 tab PO DAILY 11/30/20 04/14/23 release mycophenolate mofetil 250 mg 500 mg PO BID 12/19/20 04/14/23 capsule (CellCept) prednisone 5 mg tablet 5 mg PO DAILY 12/19/20 04/14/23 sennosides 8.6 mg tablet (senna) 8.6 mg PO BID 12/19/20 04/14/23 etonogestrel 68 mg subdermal 68 mg subdermal DAILY 06/18/21 04/14/23 implant (Nexplanon) albuterol sulfate 90 mcg/actuation 90 mcg inhalation DAILY 07/30/21 04/14/23 aerosol inhaler (Ventolin HFA) famotidine 20 mg tablet (Pepcid) 20 mg PO DAILY 07/30/21 04/14/23 tacrolimus 1 mg capsule, 3 mg PO Q12H 07/30/21 04/14/23 immediate-release tacrolimus 5 mg capsule, 10 mg PO Q12H 07/30/21 04/14/23 immediate-release tirzepatide 12.5 mg/0.5 mL mg subcut 01/27/23 04/14/23 subcutaneous pen injector (Lubna) blood sugar diagnostic (DeeplinkTouch #10 ea 05/26/23 Verio test strips) lancets 33 gauge (OneTouch Ashish #100 ea 05/26/23 Plus Lancet) pantoprazole 40 mg tablet,delayed 40 mg PO DAILY 05/26/23 release valganciclovir 450 mg tablet mg PO 05/26/23 tirzepatide 15 mg/0.5 mL mg subcut 06/16/23 subcutaneous pen injector (Lubna) Previous Rx's Medication Instructions Recorded acetaminophen 650 mg 650 mg PO Q12H 30 days #60 tabs 12/19/20 tablet,extended release albuterol sulfate 2.5 mg/3 mL 2.5 mg (3 mL) inhalation Q6H PRN 03/05/22 (0.083 %) solution for nebulization shortness of breath or wheezing 15 days #180 mL nebulizers (AeroEclipse II #1 ea 03/05/22 Nebulizer) albuterol sulfate 90 mcg/actuation 1 inh inhalation QID PRN shortness 05/26/23 aerosol inhaler of breath or wheezing 6 months #6.7 grams Allergies Allergy/AdvReac Type Severity Reaction Status Date / Time lisinopril [LISINOPRIL] Allergy Intermediate EYES SWELL Verified 06/17/23 03:33 SHUT, angioedema, angioedema tramadol [TRAMADOL] Allergy Intermediate HIVES Verified 06/17/23 03:33 piperacillin [Zosyn] Allergy Mild rash Verified 06/17/23 03:33 cefazolin Allergy Unknown Unknown Verified 06/17/23 03:33 hydrocodone [From VICODIN] Allergy Unknown UNKNOWN Verified 06/17/23 03:33 ibuprofen [From Motrin] Allergy Unknown Unknown Verified 06/17/23 03:33 shellfish derived Allergy Unknown Unknown Verified 06/17/23 03:33 Sulfa (Sulfonamide Allergy Unknown UNKNOWN Verified 06/17/23 03:33 Antibiotics) [SULFA (SULFONAMIDE ANTIBIOTICS)] vancomycin Allergy Unknown rash Verified 06/17/23 03:33 azithromycin AdvReac Intermediate dizziness/A Verified 06/17/23 03:33 KI Review of Systems Review of Systems: Pertinent positives and negatives as stated in HPI [facility] Past Medical History Source: nursing notes reviewed Medical History History of pulmonary embolism Chronic kidney disease Ankylosing spondylitis of lumbar region Right lumbar radiculopathy Surgical History S/P kidney transplant Status post dialysis Hx of bilateral breast reduction surgery Family History Family History Mother No problems noted. Father No problems noted. Social History Social History Household Members: None Housing: Apartment Are you a primary care management specialist to a significant other at home: No Do you presently have visiting nurse or other home services: No Alcohol intake: never Patient Tobacco Use Status: Former Tobacco user Years Smoked: 15 e-Cigarette/Vaping Use: Never Used Second Hand Smoke Exposure: No Advance Directives: No Advance Directives Information Provided: Yes Advance Directives Date on File: 02/26/20 service: No Current occupational status: disabled Gender identity: Female Cognitive needs: No Hearing needs: No Vision needs: Yes (Glasses) Physical Exam ED Vital Signs: Vital Signs - 24 hr 06/17/23 03:33 Temperature 97.6 F Pulse Rate 80 Respiratory Rate 16 Blood Pressure 122/74 Pulse Oximetry 100 Oxygen Delivery Method Room Air BMI result Body Mass Index 35.5 VITAL SIGNS: Reviewed. GENERAL: Well developed, well nourished, in no acute distress. HEAD: Normocephalic/atraumatic EYES: PERRLA, EOMI LUNGS: Normal breath sounds. No adventitious sounds or accessory muscle use. SpO2<100> CARDIOVASCULAR: Regular rate and rhythm without noted murmurs ABDOMEN: Soft, non-tender, non-distended with bowel sounds. MUSCULOSKELETAL: No tenderness, deformities, or effusions noted on gross inspection. EXTREMITIES: No cyanosis, clubbing or edema. BILATERAL LOWER EXTREMITY: There are small varicosities noted to anterior aspect of bilateral lower extremities, there is no calf pain/erythema or induration noted to either lower extremity SKIN: Inspection of the skin reveals no rashes NEUROLOGIC: Alert and oriented x 4. Strength and sensation to light touch were grossly intact x 4. 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 There is no evidence to suggest cellulitis or venous insufficiency at this time. Patient received Mychal bandages to assist in compression and was instructed to pursue purchasing compression stockings that are available [id number]. Differential Diagnosis Differential Diagnoses: The differential diagnosis associated with the presentation includes Please see the discussion above Admission/Observation Consideration of admission/observation: Escalation of care including admission/observation considered Please see the discussion above Discharge Plan Discharge Clinical Impression: Varicose vein of leg Patient Disposition: Home, Self-Care Instructions: Venous Insufficiency (DC) Additional Instructions: 1. I recommend compression stockings which are available [id number] to help reduce the leg discomfort that you are experiencing. 2. Please elevate your legs when possible to help reduce the pressure. 3. Follow-up with your primary care doctor. Return to the ER for any worsening symptoms. Prescriptions: No Action (DME) nebulizers [AeroEclipse II Nebulizer] Misc See Rx Instructions .Route Qty: 1 0RF Rx Instructions: As directed albuterol sulfate 2.5 mg /3 mL (0.083 %) solution for nebulization 2.5 mg inhalation Q6H PRN (Reason: shortness of breath or wheezing) 15 Days Qty: 180 0RF pantoprazole 20 mg tablet,delayed release (DR/EC) 1 tab PO DAILY amlodipine 10 mg tablet 1 tab PO DAILY docusate sodium [Dulcolax Stool Softener (dss)] 100 mg capsule 1 cap PO BID mycophenolate mofetil [CellCept] 250 mg capsule 500 mg PO BID prednisone 5 mg tablet 5 mg PO DAILY sennosides [senna] 8.6 mg tablet 8.6 mg PO BID acetaminophen 650 mg tablet extended release 650 mg PO Q12H 30 Days Qty: 60 0RF tacrolimus 1 mg capsule 3 mg PO Q12H tacrolimus 5 mg capsule 10 mg PO Q12H Mounjaro 12.5 mg/0.5 mL pen injector subcut (DME) lancets [OneTouch Delica Plus Lancet] 33 gauge misc See Rx Instructions .ROUTE TID Qty: 100 Rx Instructions: As directed (DME) OneTouch Verio test strips Strip See Rx Instructions .ROUTE TID Qty: 10 Rx Instructions: As directed valganciclovir 450 mg tablet PO pantoprazole 40 mg tablet,delayed release (DR/EC) 40 mg PO DAILY albuterol sulfate 90 mcg/actuation HFA aerosol inhaler 1 inh inhalation QID PRN (Reason: shortness of breath or wheezing) 180 Days Qty: 6.7 0RF Mounjaro 15 mg/0.5 mL pen injector subcut Nexplanon 68 mg implant 68 mg subdermal DAILY famotidine [Pepcid] 20 mg tablet 20 mg PO DAILY albuterol sulfate [Ventolin HFA] 90 mcg/actuation HFA aerosol inhaler 90 mcg inhalation DAILY Referrals: Alexx Baum PA-C [Primary Care Provider] - Interventions: ED Discharge Assessment Last Done: 06/17/23 05:10 Discharge Date/Time: 06/17/23 05:17
== END 2023-06-17 05:17 | disposition home or self-care (01) ==
PROVIDERS: Emergency Provider Student in an Organized Health Care Education/Training Program; PCP Physician Assistant
DX: I83.93 Asymptomatic varicose veins of bilateral lower extremities (principal)
CPT/HCPCS: 99282; 99284

== ENCOUNTER 2023-06-22 11:00 | Outpatient (AMB) | payer MEDICARE, MEDICAID, SELFPAY ==
[2023-06-22 11:19] VITALS: BP 98/64; PULSE 80; O2SAT 99; BMI 35.8
--- NOTE | 2023-06-22 11:19 | MHC.PC.OV ---
Vital Signs 06/22/23 11:19 Height 5 ft 6 in Weight 222 lb BMI 35.8 BP 98/64 Blood Pressure Location Lt brachial Position Sitting Pulse 80 Pulse Source Pulse Oximeter Pulse Oximetry (%) 99 Oxygen Delivery Method Room Air Intake Visit Reasons: Varicose vein of leg M[place] Man Required: No Accompanied by: Self / Same As Patient Allergies lisinopril [LISINOPRIL] Allergy (Intermediate, Verified 06/22/23 11:58) EYES SWELL SHUT, angioedema, angioedema tramadol [TRAMADOL] Allergy (Intermediate, Verified 06/22/23 11:58) HIVES piperacillin [Zosyn] Allergy (Mild, Verified 06/22/23 11:58) rash cefazolin Allergy (Unknown, Verified 06/22/23 11:58) Unknown hydrocodone [From VICODIN] Allergy (Unknown, Verified 06/22/23 11:58) UNKNOWN ibuprofen [From Motrin] Allergy (Unknown, Verified 06/22/23 11:58) Unknown shellfish derived Allergy (Unknown, Verified 06/22/23 11:58) Unknown Sulfa (Sulfonamide Antibiotics) [SULFA (SULFONAMIDE ANTIBIOTICS)] Allergy (Unknown, Verified 06/22/23 11:58) UNKNOWN vancomycin Allergy (Unknown, Verified 06/22/23 11:58) rash azithromycin Adverse Reaction (Intermediate, Verified 06/22/23 11:58) dizziness/AVERY Medication List - Last Reconciled 06/22/23 by Alexx Baum PA-C acetaminophen ER 650 mg PO Q12H 30 days albuterol sulfate 2.5 mg (3 mL) inhalation Q6H PRN 15 days albuterol sulfate 90 mcg/actuation 1 inh inhalation QID PRN 6 months amlodipine 1 tab PO DAILY blood sugar diagnostic (CRMnext Verio test strips) As directed docusate sodium (Dulcolax Stool Softener (docusate)) 1 cap PO BID etonogestrel (Nexplanon) 68 mg subdermal DAILY famotidine (Pepcid) 20 mg PO DAILY lancets (Edifilmuch Delica Plus Lancet) As directed mycophenolate mofetil (CellCept) 500 mg PO BID nebulizers (AeroEclipse II Nebulizer) As directed pantoprazole 40 mg PO DAILY sennosides (senna) 8.6 mg PO BID tacrolimus 3 mg PO Q12H tacrolimus 10 mg PO Q12H tirzepatide (Mounjaro) mg subcut valganciclovir mg PO Tobacco use date assessed: 06/22/23 Dental Screening Dental Screen Date: 06/22/23 Did you have a dental visit in the last 12 months?: Yes Did you have a dental problem in the last 6 months where you did not have access to dental care?: No Was dental information given to patient?: Patient has dentist HPI Varicose vein of leg HPI Details Patient is a 47-year-old female here today for problem visit. She was recently seen at the ER for bilateral cline pain. She was told she had varicose veins and to start wearing compression socks. She has been wearing compression socks and did do Mychal wrapping which has helped reduce her leg pain and reduce the lump over her anterior shins. [facility] Medical History History of pulmonary embolism Chronic kidney disease Ankylosing spondylitis of lumbar region Right lumbar radiculopathy Surgical History S/P kidney transplant Status post dialysis Hx of bilateral breast reduction surgery Family History Mother No problems noted. Father No problems noted. Social History Household Members: None Housing: Apartment Are you a primary career manager to a significant other at home: No Do you presently have visiting nurse or other home services: No Alcohol intake: never Patient Tobacco Use Status: Former Tobacco user Years Smoked: 15 e-Cigarette/Vaping Use: Never Used Second Hand Smoke Exposure: No Advance Directives Date on File: 02/26/20 service: No Current occupational status: disabled Gender identity: Female Cognitive needs: No Hearing needs: No Vision needs: Yes (Glasses) Female Reproductive History Menstrual Age of Menarche: 17 Questionnaire PHQ-9 Over the last 2 weeks, how often have you been bothered by any of the following problems? 1. Little interest or pleasure in doing things: not at all 2. Feeling down, depressed, or hopeless: not at all 3. Trouble falling or staying asleep, or sleeping too much: not at all 4. Feeling tired or having little energy: not at all 5. Poor appetite or overeating: not at all 6. Feeling bad about yourself - or that you are a failure or have let yourself or your family down: not at all 7. Trouble concentrating on things, such as reading the newspaper or watching television: not at all 8. Moving or speaking so slowly that other people could have noticed. Or the opposite - being so fidgety or restless that you have been moving around a lot more than usual: not at all 9. Thoughts that you would be better off or of hurting yourself in some way: not at all Total score: 0 Depression Screening Interpretation: Negative Depression Screening Done: Yes 56696 - PHQ-9 Billing: Yes Source: Developed by Drs. Han Marcelo, Halle Robles, Dexter Medrano and colleagues, with an educational tigre from [employer]. Thrive Questionnaire Date Thrive assessed: 06/22/23 What is your living situation today?: I have a steady place to live Within the past 12 months, did the food you bought not last and you didn't have the money to get more?: Never true Within the past 12 months, did you worry whether your food would run out before you got money to buy more?: Never true Do you have trouble paying for medicines?: No Do you have trouble getting transportation to medical appointments?: No Do you have trouble paying your heating and electricity bill?: No Do you have trouble taking care of your child, family member or friend?: No Do you have trouble with day-to-day activities such as bathing, preparing meals, shopping, managing finances, etc.?: No Are you currently unemployed and looking for a job?: No Are you interested in more education?: No Please select the resources that you would like help with: None Currently or been in a relationship where the following occur: no concerns reported THRIVE Score: 0 AUDIT C Alcohol Use Questionnaire (AUDIT-C) 1. How often do you have a drink containing alcohol?: Never 3. How often do you have six or more drinks on one occasion?: Never Total Score: 0 VIRIDIANA-7 AMB Questionnaire VIRIDIANA-7 Date VIRIDIANA - 7 assessed: 06/22/23 Feeling nervous, anxious, or on edge: 0 = Not at all Not being able to stop or control worryin = Not at all Worrying too much about different things: 0 = Not at all Trouble relaxin = Not at all Being so restless that it is hard to sit still: 0 = Not at all Becoming easily annoyed or irritable: 0 = Not at all Feeling afraid as if something awful might happen: 0 = Not at all Total VIRIDIANA-7 score (0-4 normal; 5-9 mild; 10-14 moderate; 15-21 severe): 0 Source: Developed by Drs. Han Marcelo, Halle Robles, Dexter Medrano and colleagues, with an educational tigre from [employer]. VIRIDIANA-7 Assessment Billing VIRIDIANA-7 Assessment Tool: VIRIDIANA-7 Assessment 50869 Review of Systems Const Denies headache(s) Eyes Denies loss of vision ENT Denies vertigo, Denies dizziness, Denies headache(s) and Denies sore throat Card Denies chest pain, Denies leg edema and Denies lightheadedness Resp Denies cough, Denies hemoptysis and Denies wheezing GI Denies abdominal pain, Denies melena, Denies constipation, Denies diarrhea and Denies vomiting Denies urinary frequency, Denies dysuria and Denies urinary urgency Musc Denies arthralgias, Denies joint swelling, Denies numbness and Denies tingling Neuro Denies Abnormal speech present, Denies behavioral changes, Denies vertigo, Denies dizziness, Denies headache(s), Denies loss of vision, Denies memory loss, Denies numbness and Denies tingling Psych Denies anxiety, Denies behavioral changes, Denies depression, Denies memory loss and Denies panic attacks Chris/Lymph Denies easy bleeding and Denies easy bruising Aller/Immun Denies wheezing Physical exam (Primary Care) Vital Signs: Last Vital Signs Pulse 80 06/22/23 11:19 BP 98/64 06/22/23 11:19 Pulse Ox 99 06/22/23 11:19 Oxygen Delivery Method Room Air 06/22/23 11:19 BMI result Body Mass Index 35.8 Tobacco/Smoking Status: Tobacco use Status Tobacco use date assessed 06/22/23 06/22/23 11:27 Patient Tobacco Use Status Former Tobacco user 06/22/23 11:19 e-Cigarette/Vaping Use Never Used 06/22/23 11:19 PHQ-9: PHQ-9 Score PHQ-9: Total score 0 06/22/23 12:03 Depression Screening Interpretation: Negative Thrive Assessment: Date of Thrive Assessment Date Thrive assessed 06/22/23 06/22/23 11:27 Currently or been in a relationship where the following occur: no concerns reported Const General: healthy appearing, no acute distress, alert and awake Nutritional Appearance: well nourished Orientation/consciousness: oriented to person, oriented to place and oriented to time HENMT Ears: TM's normal bilaterally General nose exam: Normal nasal mucous membranes and turbinates present Eyes Conjunctivae: conjunctivae normal Sclerae: sclerae normal Pupils: Equal, round and reactive pupils present Neck Neck: Yes no lymphadenopathy and Yes no JVD Thyroid: Thyroid normal Carotids: no bruits Resp Effort & Inspection: normal respiratory effort and not tachypneic Auscultation: no crackles, no rales, no rhonchi and no wheezes Cardio Rate: regular rate Rhythm: regular rhythm Heart sounds: no murmurs and normal S1 and S2 GI Palpation (GI): Soft to palpation, nontender, no hepatomegaly and no splenomegaly Auscultation: normal bowel sounds Skin General skin exam: no rashes or lesions noted and dry skin Neuro General: oriented to person, oriented to place and oriented to time Cranial nerves: Yes Equal, round and reactive pupils present Speech: No Abnormal speech present Gait exam (Neuro): Normal gait present Motor exam (neuro): no tremor noted Extrem Right upper extremity: full ROM Left upper extremity: full ROM Right lower extremity: full ROM; no edema Left lower extremity: full ROM; no edema Upper/lower leg/hip images: 1. SMALL PALPABLE LUMPS OVER BILATERAL ANTERIOR SHINS. Psych Mental Status: mental status grossly normal Speech and movement: Normal speech and movement present Affect: normal affect Attitude: cooperative Thought process: Normal thought process present Assessment and Plan Assessment & Plan (1) Pain of lower extremity: Code(s): M79.606 - Pain in leg, unspecified Qualifiers: Laterality: bilateral Qualified Code(s): M79.604 - Pain in right leg; M79.605 - Pain in left leg Plan: Has bilateral cline pain, does have palpable lumps that can be varicosities. He is she has been wearing compression socks and Mychal wraps which has reduced the size of the lumps. Also has been elevating her legs. Do not believe she needs any surgical evaluation at this time. Coding Level of Care Code Est Pt Level 3 (82008) Diagnoses Pain in both lower extremities M79.604; M79.605 Laterality: bilateral Additional Codes VIRIDIANA-7 Assessment Billing - VIRIDIANA-7 Assessment Tool: VIRIDIANA-7 Assessment 12785 ([id number])
== END 2023-06-22 13:16 | disposition home or self-care (01) ==
PROVIDERS: PCP Physician Assistant; Visit Provider Physician Assistant
DX: M79.604 Pain in right leg (principal); M79.605 Pain in left leg
CPT/HCPCS: 99213

== ENCOUNTER 2023-07-28 08:20 | Outpatient (AMB) | payer MEDICARE, MEDICAID, SELFPAY ==
[2023-07-28 08:33] VITALS: BP 104/68; PULSE 92; O2SAT 100; BMI 35.2
--- NOTE | 2023-07-28 08:33 | A.OFFPC_ITS ---
Vital Signs 07/28/23 08:33 Height 5 ft 6 in Weight 218 lb 0.6 oz BMI 35.2 BP 104/68 Blood Pressure Location Lt brachial Position Sitting Pulse 92 Pulse Source Pulse Oximeter Pulse Oximetry (%) 100 Oxygen Delivery Method Room Air Intake Visit Reasons: ANNUAL Intake Note: Patient is here today for a physical. Certified Endoscopy Technician Required: No Allergies lisinopril [LISINOPRIL] Allergy (Intermediate, Verified 07/28/23 08:42) EYES SWELL SHUT, angioedema, angioedema tramadol [TRAMADOL] Allergy (Intermediate, Verified 07/28/23 08:42) HIVES piperacillin [Zosyn] Allergy (Mild, Verified 07/28/23 08:42) rash cefazolin Allergy (Unknown, Verified 07/28/23 08:42) Unknown hydrocodone [From VICODIN] Allergy (Unknown, Verified 07/28/23 08:42) UNKNOWN ibuprofen [From Motrin] Allergy (Unknown, Verified 07/28/23 08:42) Unknown shellfish derived Allergy (Unknown, Verified 07/28/23 08:42) Unknown Sulfa (Sulfonamide Antibiotics) [SULFA (SULFONAMIDE ANTIBIOTICS)] Allergy (Unknown, Verified 07/28/23 08:42) UNKNOWN vancomycin Allergy (Unknown, Verified 07/28/23 08:42) rash azithromycin Adverse Reaction (Intermediate, Verified 07/28/23 08:42) dizziness/AVERY Tobacco use date assessed: 07/28/23 Dental Screening Dental Screen Date: 06/22/23 Did you have a dental visit in the last 12 months?: No Did you have a dental problem in the last 6 months where you did not have access to dental care?: No HPI ANNUAL HPI Details Patient is a 47-year-old female here today for a routine annual physical.? Patient has a past medical history significant for pulmonary embolism on anticoagulation, GERD, Asthma, Iron def anemia,? obesity, DMII, end-stage renal disease status post kidney transplant, chronic lumbar spine pain. .. Concerns--> report having intermeittent chest pain not associated with foods or exertional which has been evident over the last several months. She has been evaluated at multiple ER is though no significant findings have been found. She relates these chest discomfort feelings distress. Most of her chest discomfort is in her upper middle chest. PLAN: Will send for cardiac stress testing to evaluate for cardiac ischemia on exertion . Pulmonary embolism:? Patient followed by Oncology Hematology. ? .? Has gotten a D&C which has resolved her menstrual bleeding.? She did have fairly severe iron deficiency anemia requiring iron infusion. .. Kidney transplant recipient:? Is continued to be followed by transplant team and was to [place].? Continues on long-term anti rejection medications.? She continues to get biweekly labs .. DMII:? Has developed diabetes likely secondary to chronic prednisone use and her obesity. She was started on Mounjauro and has lost any significant amount of weight., has been able to lose a significant amount weight and diabetes much better controlled. 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 Vaccines: Up-to-date with COVID vaccine, flu vaccine, pneumonia vaccine and tetanus vaccine [facility] Medical History History of pulmonary embolism Chronic kidney disease Ankylosing spondylitis of lumbar region Right lumbar radiculopathy Surgical History S/P kidney transplant Status post dialysis Hx of bilateral breast reduction surgery Family History (Updated 07/28/23 @ 08:52 by Alexx Baum PA-C) Mother No problems noted. Father No problems noted. Brother Substance abuse Social History Household Members: None Housing: Apartment Are you a primary career development coordinator to a significant other at home: No Do you presently have visiting nurse or other home services: No Alcohol intake: never Patient Tobacco Use Status: Former Tobacco user Years Smoked: 15 e-Cigarette/Vaping Use: Never Used Second Hand Smoke Exposure: No Advance Directives Date on File: 02/26/20 service: No Current occupational status: disabled Gender identity: Female Cognitive needs: No Hearing needs: No Vision needs: Yes (Glasses) Female Reproductive History Menstrual Age of Menarche: 17 Questionnaire PHQ-9 Over the last 2 weeks, how often have you been bothered by any of the following problems? 1. Little interest or pleasure in doing things: not at all 2. Feeling down, depressed, or hopeless: not at all 3. Trouble falling or staying asleep, or sleeping too much: not at all 4. Feeling tired or having little energy: not at all 5. Poor appetite or overeating: not at all 6. Feeling bad about yourself - or that you are a failure or have let yourself or your family down: not at all 7. Trouble concentrating on things, such as reading the newspaper or watching television: not at all 8. Moving or speaking so slowly that other people could have noticed. Or the opposite - being so fidgety or restless that you have been moving around a lot more than usual: not at all 9. Thoughts that you would be better off or of hurting yourself in some way: not at all Total score: 0 Depression Screening Interpretation: Negative Depression Screening Done: Yes 32344 - PHQ-9 Billing: Yes Source: Developed by Drs. Han Marcelo, Halle Robles, Dexter Medrano and colleagues, with an educational tigre from [employer]. Thrive Questionnaire Date Thrive assessed: 07/28/23 I am a: Patient What is your living situation today?: I have a steady place to live Within the past 12 months, did the food you bought not last and you didn't have the money to get more?: Never true Within the past 12 months, did you worry whether your food would run out before you got money to buy more?: Never true Do you have trouble paying for medicines?: No Do you have trouble getting transportation to medical appointments?: No Do you have trouble paying your heating and electricity bill?: No Do you have trouble taking care of your child, family member or friend?: No Do you have trouble with day-to-day activities such as bathing, preparing meals, shopping, managing finances, etc.?: No Are you currently unemployed and looking for a job?: No Are you interested in more education?: No Please select the resources that you would like help with: None Currently or been in a relationship where the following occur: no concerns reported THRIVE Score: 0 AUDIT C Alcohol Use Questionnaire (AUDIT-C) 1. How often do you have a drink containing alcohol?: Never 3. How often do you have six or more drinks on one occasion?: Never Total Score: 0 VIRIDIANA-7 AMB Questionnaire VIRIDIANA-7 Date VIRIDIANA - 7 assessed: 06/22/23 Feeling nervous, anxious, or on edge: 0 = Not at all Not being able to stop or control worryin = Not at all Worrying too much about different things: 0 = Not at all Trouble relaxin = Not at all Being so restless that it is hard to sit still: 0 = Not at all Becoming easily annoyed or irritable: 0 = Not at all Feeling afraid as if something awful might happen: 0 = Not at all Total VIRIDIANA-7 score (0-4 normal; 5-9 mild; 10-14 moderate; 15-21 severe): 0 Source: Developed by Drs. Hna Marcelo, Halle Robles, Dexter Medrano and colleagues, with an educational tigre from [employer]. VIRIDIANA-7 Assessment Billing VIRIDIANA-7 Assessment Tool: VIRIDIANA-7 Assessment 95535 Review of Systems Const Denies body aches, Denies chills, Denies excessive sweating, Denies fatigue, Denies fever(s) and Denies headache(s) Eyes Denies blurry vision ENT Denies dysphagia, Denies vertigo, Denies dizziness, Denies headache(s), Denies hearing loss and Denies tinnitus Card Denies chest pain, Denies chest pain with activity, Denies syncope, Denies irregular heart rhythm and Denies dyspnea Resp Denies chest congestion, Denies cough, Denies hemoptysis, Denies dyspnea and Denies wheezing GI Denies abdominal pain, Denies melena, Denies hematochezia, Denies coffee ground emesis, Denies dysphagia, Denies diarrhea, Denies nausea and Denies vomiting Denies urinary frequency, Denies dysuria, Denies urinary hesitancy and Denies urinary urgency Musc Denies arthralgias, Denies limited range of motion, Denies muscle cramps and Denies muscle weakness Skin/Breast Denies rash and Denies skin ulcer Neuro Denies Abnormal speech present, Denies confusion, Denies vertigo, Denies dizziness, Denies syncope, Denies headache(s), Denies memory loss and Denies seizure-like activity Psych Denies anxiety, Denies confusion, Denies depression, Denies memory loss, Denies panic attacks and Denies paranoia Endo Denies excessive sweating, Denies fatigue, Denies flushing, Denies polydipsia and Denies polyuria Aller/Immun Denies wheezing Physical exam (Primary Care) Vital Signs: Last Vital Signs Pulse 92 07/28/23 08:33 BP 104/68 07/28/23 08:33 Pulse Ox 100 07/28/23 08:33 Oxygen Delivery Method Room Air 07/28/23 08:33 BMI result Body Mass Index 35.2 Tobacco/Smoking Status: Tobacco use Status Tobacco use date assessed 07/28/23 07/28/23 08:40 Patient Tobacco Use Status Former Tobacco user 07/28/23 08:40 e-Cigarette/Vaping Use Never Used 07/28/23 08:40 PHQ-9: PHQ-9 Score PHQ-9: Total score 0 07/28/23 09:04 Depression Screening Interpretation: Negative Thrive Assessment: Date of Thrive Assessment Date Thrive assessed 07/28/23 07/28/23 08:40 Currently or been in a relationship where the following occur: no concerns repo rted Const General: cooperative, comfortable, no acute distress, alert and awake; No confusion Orientation/consciousness: oriented to person, oriented to place, patient oriented x3 and No confusion HENMT Head: Yes normocephalic Ears: external ears normal and TM's normal bilaterally Face and sinus: No sinus tenderness Mouth: Normal oral and palatal mucosa present and tongue normal Teeth and gingiva: dentition normal and gingiva normal Throat: Yes posterior oropharynx normal, Yes tonsils normal and Yes uvula midline Eyes Conjunctivae: conjunctivae normal Sclerae: sclerae normal Pupils: Equal, round and reactive pupils present EOM: EOMs intact bilaterally Direct Ophthalmoscopy: No no photophobia Neck Neck: Yes no lymphadenopathy, No tender and Yes no JVD Thyroid: Thyroid normal Carotids: no bruits Chest Chest palpation & inspection: no tenderness Resp Effort & Inspection: normal respiratory effort, no audible wheezes, not labored and no stridor Auscultation: no crackles, no rales, no rhonchi and no wheezes Cardio Jugular venous distension: no JVD Rate: regular rate, not bradycardic and not tachycardic Rhythm: regular rhythm Bruits: no carotid bruits Peripheral pulses: Peripheral pulses 2+ throughout GI Inspection: Yes normal to inspection, No abdominal wall ecchymosis and No visible herniation Palpation (GI): Soft to palpation, nontender, no guarding, not rigid and No hepatosplenomegaly present Auscultation: normoactive bowel sounds General: Yes no CVA tenderness Back/Spine/Pelvis Back: no CVA tenderness and No back tenderness Cervical Spine: cervical ROM normal Thoracic/Lumbar Spine: thoracic and lumbar spine normal to inspection, straight leg raise negative bilaterally, No thoraco-lumbar ROM limited and No lumbar spinal tenderness Skin Lesions: no lesions Rashes: no rashes Wounds: no wounds Neuro General: oriented to person, oriented to place, patient oriented x3, CN's II-XI intact bilaterally and No confusion Cranial nerves: Yes Equal, round and reactive pupils present and Yes Normal accommodation reflex present Cognition (Neuro): normal cognition Speech: No Abnormal speech present Gait exam (Neuro): Normal gait present Motor exam (neuro): 5/5 motor strength present throughout Extrem Right upper extremity: full ROM; no cyanosis Left upper extremity: full ROM; no cyanosis Right lower extremity: no edema Left lower extremity: no edema Psych Appearance: grossly normal Mental Status: mental status grossly normal Affect: normal affect Attitude: cooperative Thought process: Normal thought process present Results AMB Hemoglobin A1c AMB Hemoglobin A1c 6.0 % Last Edit by MAYO Jacobs on 07/28/23 09:0 8 Assessment and Plan Assessment & Plan (1) Annual physical exam: Code(s): Z00.00 - Encounter for general adult medical examination without abnormal findings (2) Atypical chest pain: Code(s): R07.89 - Other chest pain Plan: Patient reports a several month history of atypical chest pain. Has been evaluated at ER is without any significant elevations in her troponins or EKG changes.. She reports the chest discomforts happen randomly and are not associated with foods or exertional. Due to patient's medical comorbidities Will send for cardiac stress testing to evaluate for cardiac ischemia on exertion concerning for coronary artery disease. (3) S/P kidney transplant: Comment: post op complication, clots removed kidney surface Code(s): Z94.0 - Kidney transplant status Plan: Patient continues to follow transplant team and was to [place], continues on anti rejection drugs and prednisone. She reports urination has been fine and most recent renal function tests have been stable. (4) DMII (diabetes mellitus, type 2): Code(s): E11.9 - Type 2 diabetes mellitus without complications Qualifiers: Diabetes mellitus terminal make up operator insulin use: without snf use Diabetes mellitus complication status: with hyperglycemia Qualified Code(s): E11.65 - Type 2 diabetes mellitus with hyperglycemia Plan: Followed by Endocrinology at [facility]. Has had excellent control over her diabetes. Today's A1c is 6.0 Has been started on new injectable diabetic medication has lost significant amount of weight.. 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 Goal A1c to be below 7.0 (5) Obese: Code(s): E66.9 - Obesity, unspecified Qualifiers: Obesity type: due to excess calories Obesity classification: adult class 2 (BMI 35 - 39.9) Serious obesity comorbidity presence: with serious comorbidity Body mass index: BMI 39.0-39.9 Qualified Code(s): E66.01 - Morbid (severe) obesity due to excess calories; Z68.39 - Body mass index [BMI] 39.0- 39.9, adult Plan: Patient does understand her BMI is well over 30 will work on trying to be physically active and adapting to better eating habits to reduce her weight. Unfortunately continues on prednisone indefinitely due to her kidney transplant (6) Pulmonary embolism: Code(s): I26.99 - Other pulmonary embolism without acute cor pulmonale Qualifiers: Pulmonary embolism type: other Chronicity: unspecified Acute cor pulmonale presence: unspecified Qualified Code(s): I26.99 - Other pulmonary embolism without acute cor pulmonale Plan: Patient has a history of pulmonary embolism that was provoked. Now off of Eliquis. Orders: Orders CA stress test Today R07.89 - Other chest pain AMB Hemoglobin A1c Today E11.65 - Type 2 diabetes mellitus with hyperglycemia Coding Level of Care Code Est Pt Prev Care 40-64y([id number]) Diagnoses Annual physical exam Z00.00 Atypical chest pain R07.89 S/P kidney transplant Z94.0 Type 2 diabetes mellitus with hyperglycemia, without long-term current use of insulin E11.65 Diabetes mellitus snf insulin use: without terminal make up operator use Diabetes mellitus complication status: with hyperglycemia Class 2 severe obesity due to excess calories with serious comorbidity and body mass index (BMI) of 39.0 to 39.9 in adult E66.01; Z68.39 Obesity type: due to excess calories Obesity classification: adult class 2 (BMI 35 - 39.9) Serious obesity comorbidity presence: with serious comorbidity Body mass index: BMI 39.0-39.9 Pulmonary embolism, other, unspecified chronicity, unspecified whether acute cor pulmonale present I26.99 Pulmonary embolism type: other Chronicity: unspecified Acute cor pulmonale presence: unspecified Additional Codes VIRIDIANA-7 Assessment Billing - VIRIDIANA-7 Assessment Tool: VIRIDIANA-7 Assessment 88683 ([id number])
== END 2023-07-28 09:13 | disposition home or self-care (01) ==
PROVIDERS: PCP Physician Assistant; Visit Provider Physician Assistant
DX: Z00.00 Encounter for general adult medical examination without abnormal findings (principal); R07.89 Other chest pain; Z94.0 Kidney transplant status; E11.65 Type 2 diabetes mellitus with hyperglycemia; E66.01 Morbid (severe) obesity due to excess calories; Z68.39 Body mass index [BMI] 39.0-39.9, adult; I26.99 Other pulmonary embolism without acute cor pulmonale
CPT/HCPCS: 83036; 99396

== ENCOUNTER → 2023-08-09 08:09 | Outpatient (REF) | payer MEDICARE, MEDICAID, SELFPAY ==
--- NOTE | 2023-08-09 08:12 | CA_ITS ---
Acquisition Time: 2023-08-09 08:27:34 Total Exercise Time: 00:05:00 Test Indications: CP Medications: SEE H Protocol: GERBER Max HR: 148 BPM 85% of Pred: 174 BPM Max BP: 140/078 mmHG Max Work Load: 7.0 METS Exercise stress test with exercise 5 min of Gerber protocol achieving 86%, MPHR, with moderate SOB, no chest discomfort, without arrhythmias, with normotensive response to exercise, without EKG changes. Breathing returned to baseline. Tets reviewed with Dr. Gutierrez. Downsloping in leads V5-V6 resolved in limb lead placement but present in stress test placement Referred By: Alexx Baum Overread By: Belinda Knapp
== END ==
LOC: HO.CARD 08:09
PROVIDERS: Visit Provider Physician Assistant
DX: R07.89 Other chest pain (principal)
CPT/HCPCS: 93017

== ENCOUNTER → 2023-08-09 08:12 | Outpatient (BNV) | payer MEDICARE, MEDICAID, SELFPAY | PROVIDERS: Visit Provider Nurse Practitioner | DX: R06.02 Shortness of breath (principal) | CPT/HCPCS: 93016; 93018 ==

== ENCOUNTER 2023-12-07 08:41 | Outpatient (AMB) | payer MEDICARE, MEDICAID, SELFPAY ==
[2023-12-07 08:43] VITALS: BP 128/72; PULSE 91; O2SAT 98; BMI 35.7
--- NOTE | 2023-12-07 08:43 | MHC.PC.OV ---
Vital Signs 12/07/23 08:43 Height 5 ft 6 in Weight 221 lb BMI 35.7 BP 128/72 Blood Pressure Location Lt brachial Position Sitting Pulse 91 Pulse Source Pulse Oximeter Pulse Oximetry (%) 98 Oxygen Delivery Method Room Air Intake Visit Reasons: f/u DMII Allergies lisinopril [LISINOPRIL] Allergy (Intermediate, Verified 12/07/23 09:01) EYES SWELL SHUT, angioedema, angioedema tramadol [TRAMADOL] Allergy (Intermediate, Verified 12/07/23 09:01) HIVES piperacillin [Zosyn] Allergy (Mild, Verified 12/07/23 09:01) rash cefazolin Allergy (Unknown, Verified 12/07/23 09:01) Unknown hydrocodone [From VICODIN] Allergy (Unknown, Verified 12/07/23 09:01) UNKNOWN ibuprofen [From Motrin] Allergy (Unknown, Verified 12/07/23 09:01) Unknown shellfish derived Allergy (Unknown, Verified 12/07/23 09:01) Unknown Sulfa (Sulfonamide Antibiotics) [SULFA (SULFONAMIDE ANTIBIOTICS)] Allergy (Unknown, Verified 12/07/23 09:01) UNKNOWN vancomycin Allergy (Unknown, Verified 12/07/23 09:01) rash azithromycin Adverse Reaction (Intermediate, Verified 12/07/23 09:01) dizziness/AVERY Medication List - Last Reconciled 12/07/23 by Alexx Baum PA-C acetaminophen ER 650 mg PO Q12H 30 days albuterol sulfate 2.5 mg (3 mL) inhalation Q6H PRN 15 days albuterol sulfate 90 mcg/actuation 1 inh inhalation QID PRN 6 months amlodipine 1 tab PO DAILY blood sugar diagnostic (GIGASuch Verio test strips) As directed docusate sodium (Dulcolax Stool Softener (docusate)) 1 cap PO BID etonogestrel (Nexplanon) 68 mg subdermal DAILY famotidine (Pepcid) 20 mg PO DAILY lancets (GIGASuch Delica Plus Lancet) As directed mycophenolate mofetil (CellCept) 500 mg PO BID nebulizers (AeroEclipse II Nebulizer) As directed pantoprazole 40 mg PO DAILY sennosides (senna) 8.6 mg PO BID tacrolimus 3 mg PO Q12H tacrolimus 10 mg PO Q12H tirzepatide (Mounjaro) mg subcut valganciclovir mg PO Tobacco use date assessed: 07/28/23 Dental Screening Dental Screen Date: 12/07/23 Did you have a dental visit in the last 12 months?: Yes Did you have a dental problem in the last 6 months where you did not have access to dental care?: No Was dental information given to patient?: Patient has dentist HPI f/u DMII HPI Details Patient is a 48 year female here today for follow-up visit .? Patient has a past medical history significant for pulmonary embolism on anticoagulation, GERD, Asthma, Iron def anemia,? obesity, DMII, end-stage renal disease status post kidney transplant, chronic lumbar spine pain. .. Concerns--> reports having hot flashes as of late, she feels she is perhaps going through menopause. .. Knee osteoarthritis: Continues to follow orthopedic surgeon has been treating her with injections and gel injections. Has done physical therapy though has not been helpful. She has considering full replacement. We did discuss that she may benefit from aquatic therapy .. Kidney transplant recipient:? Is continued to be followed by transplant team and was to [place].? Continues on long-term anti rejection medications.? She continues to get biweekly labs .. DMII:? Has developed diabetes likely secondary to chronic prednisone use and her obesity. She continues on Mounjauro and has lost any significant amount of weight has better glycemic control., Today's A1c 6.2. Laboratory Tests 11/11/21 11/26/21 04/23/22 15:29 12:27 08:45 WBC RBC 5.02 D Hgb Hgb A1c (Clinic) 7.9 H 7.0 H 06/04/23 07/28/23 21:40 09:04 WBC 11.4 H RBC Hgb 13.2 Hgb A1c (Clinic) 6.0 PFSH Medical History History of pulmonary embolism Chronic kidney disease Ankylosing spondylitis of lumbar region Right lumbar radiculopathy Surgical History S/P kidney transplant Status post dialysis Hx of bilateral breast reduction surgery Family History Mother No problems noted. Father No problems noted. Brother Substance abuse Social History Household Members: None Housing: Apartment Are you a primary physician assistant primary care to a significant other at home: No Do you presently have visiting nurse or other home services: No Alcohol intake: never Patient Tobacco Use Status: Former Tobacco user Years Smoked: 15 e-Cigarette/Vaping Use: Never Used Second Hand Smoke Exposure: No Advance Directives Date on File: 02/26/20 service: No Current occupational status: disabled Gender identity: Female Cognitive needs: No Hearing needs: No Vision needs: Yes (Glasses) Female Reproductive History Menstrual Age of Menarche: 17 Questionnaire PHQ-9 Over the last 2 weeks, how often have you been bothered by any of the following problems? 1. Little interest or pleasure in doing things: not at all 2. Feeling down, depressed, or hopeless: not at all 3. Trouble falling or staying asleep, or sleeping too much: not at all 4. Feeling tired or having little energy: not at all 5. Poor appetite or overeating: not at all 6. Feeling bad about yourself - or that you are a failure or have let yourself or your family down: not at all 7. Trouble concentrating on things, such as reading the newspaper or watching television: not at all 8. Moving or speaking so slowly that other people could have noticed. Or the opposite - being so fidgety or restless that you have been moving around a lot more than usual: not at all 9. Thoughts that you would be better off or of hurting yourself in some way: not at all Total score: 0 Depression Screening Interpretation: Negative Depression Screening Done: Yes 44804 - PHQ-9 Billing: Yes Source: Developed by Drs. Han Marcelo, Halle Robles, Dexter Medrano and colleagues, with an educational tigre from [employer]. Thrive Questionnaire Date Thrive assessed: 07/28/23 AUDIT C Alcohol Use Questionnaire (AUDIT-C) 1. How often do you have a drink containing alcohol?: Never 3. How often do you have six or more drinks on one occasion?: Never Total Score: 0 VIRIDIANA-7 AMB Questionnaire VIRIDIANA-7 Date VIRIDIANA - 7 assessed: 06/22/23 Feeling nervous, anxious, or on edge: 0 = Not at all Not being able to stop or control worryin = Not at all Worrying too much about different things: 0 = Not at all Trouble relaxin = Not at all Being so restless that it is hard to sit still: 0 = Not at all Becoming easily annoyed or irritable: 0 = Not at all Feeling afraid as if something awful might happen: 0 = Not at all Total VIRIDIANA-7 score (0-4 normal; 5-9 mild; 10-14 moderate; 15-21 severe): 0 Source: Developed by Drs. Han Marcelo, Halle Robles, Dexter Medrano and colleagues, with an educational tigre from [employer]. VIRIDIANA-7 Assessment Billing VIRIDIANA-7 Assessment Tool: VIRIDIANA-7 Assessment 73807 Review of Systems Const Denies headache(s) Eyes Denies loss of vision ENT Denies vertigo, Denies dizziness, Denies headache(s) and Denies sore throat Card Denies chest pain, Denies leg edema and Denies lightheadedness Resp Denies cough, Denies hemoptysis and Denies wheezing GI Denies abdominal pain, Denies melena, Denies constipation, Denies diarrhea and Denies vomiting Denies urinary frequency, Denies dysuria and Denies urinary urgency Musc Denies arthralgias, Denies joint swelling, Denies numbness and Denies tingling Neuro Denies Abnormal speech present, Denies behavioral changes, Denies vertigo, Denies dizziness, Denies headache(s), Denies loss of vision, Denies memory loss, Denies numbness and Denies tingling Psych Denies anxiety, Denies behavioral changes, Denies depression, Denies memory loss and Denies panic attacks Chris/Lymph Denies easy bleeding and Denies easy bruising Aller/Immun Denies wheezing Physical exam (Primary Care) Vital Signs: Last Vital Signs Pulse 91 12/07/23 08:43 BP 128/72 12/07/23 08:43 Pulse Ox 98 12/07/23 08:43 Oxygen Delivery Method Room Air 12/07/23 08:43 BMI result Body Mass Index 35.7 Tobacco/Smoking Status: Tobacco use Status Tobacco use date assessed 07/28/23 12/07/23 08:43 Patient Tobacco Use Status Former Tobacco user 12/07/23 08:43 e-Cigarette/Vaping Use Never Used 12/07/23 08:43 PHQ-9: PHQ-9 Score PHQ-9: Total score 0 12/07/23 08:59 Depression Screening Interpretation: Negative Thrive Assessment: Date of Thrive Assessment Date Thrive assessed 07/28/23 12/07/23 08:43 Const General: healthy appearing, no acute distress, alert and awake Nutritional Appearance: well nourished Orientation/consciousness: oriented to person, oriented to place and oriented to time HENMT Ears: TM's normal bilaterally General nose exam: Normal nasal mucous membranes and turbinates present Eyes Conjunctivae: conjunctivae normal Sclerae: sclerae normal Pupils: Equal, round and reactive pupils present Neck Neck: Yes no lymphadenopathy and Yes no JVD Thyroid: Thyroid normal Carotids: no bruits Resp Effort & Inspection: normal respiratory effort and not tachypneic Auscultation: no crackles, no rales, no rhonchi and no wheezes Cardio Rate: regular rate Rhythm: regular rhythm Heart sounds: no murmurs and normal S1 and S2 GI Palpation (GI): Soft to palpation, nontender, no hepatomegaly and no splenomegaly Auscultation: normal bowel sounds Skin General skin exam: no rashes or lesions noted and dry skin Neuro General: oriented to person, oriented to place and oriented to time Cranial nerves: Yes Equal, round and reactive pupils present Speech: No Abnormal speech present Gait exam (Neuro): Normal gait present Motor exam (neuro): no tremor noted Extrem Right upper extremity: full ROM Left upper extremity: full ROM Right lower extremity: full ROM; no edema Left lower extremity: full ROM; no edema Psych Mental Status: mental status grossly normal Speech and movement: Normal speech and movement present Affect: normal affect Attitude: cooperative Thought process: Normal thought process present Results AMB Hemoglobin A1c AMB Hemoglobin A1c 6.2 % Last Edit by Ratna Carmona CMA on 12/07/23 09:01 Assessment and Plan Assessment & Plan (1) S/P kidney transplant: Comment: post op complication, clots removed kidney surface Code(s): Z94.0 - Kidney transplant status Plan: Patient continues to follow transplant team and was to [place], continues on anti rejection drugs and prednisone. She reports urination has been fine and most recent renal function tests have been stable. (2) DMII (diabetes mellitus, type 2): Code(s): E11.9 - Type 2 diabetes mellitus without complications Qualifiers: Diabetes mellitus hauling contractor insulin use: without hauling contractor use Diabetes mellitus complication status: with hyperglycemia Qualified Code(s): E11.65 - Type 2 diabetes mellitus with hyperglycemia Plan: Followed by Endocrinology at [facility]. Has had excellent control over her diabetes. Today's A1c at 6.2 from 6.0. Continues on GLP 1 which has offered her excellent control of her sugars.. Unfortunately needs to continue prednisone indefinitely due to renal transplant ophthalmic surgical assistant whom checks on her labs in A1c. Goal A1c to be below 7.0 (3) Pulmonary embolism: Code(s): I26.99 - Other pulmonary embolism without acute cor pulmonale Qualifiers: Pulmonary embolism type: other Chronicity: unspecified Acute cor pulmonale presence: unspecified Qualified Code(s): I26.99 - Other pulmonary embolism without acute cor pulmonale Plan: Patient has a history of pulmonary embolism that was provoked. Now off of Eliquis. (4) Perimenopause: Code(s): N95.1 - Menopausal and female climacteric states Plan: Patient reports having several episodes of hot flashes. Likely perimenopausal. Will check her follows simple stimulating hormone. Advised to follow-up with her obgyn hospitalist physician (5) Osteoarthritis of left knee: Code(s): M17.12 - Unilateral primary osteoarthritis, left knee Qualifiers: Osteoarthritis type: primary Qualified Code(s): M17.12 - Unilateral primary osteoarthritis, left knee Plan: Continues to follow Orthopedics, has done cortisone injections and gel injections and physical therapy all without much relief. Has been using Tylenol arthritis. She would likely benefit from aquatic therapy. Orders: Orders Follicle Stimulating Hormone Today N95.1 - Menopausal and female climacteric states AMB Hemoglobin A1c Today E11.65 - Type 2 diabetes mellitus with hyperglycemia Medications: Refilled acetaminophen ER 650 mg PO Q12H 30 days 60 tabs 0RF M45.6 - Ankylosing spondylitis lumbar region Patient Instructions: Goal: A1c to remain below 7.0 Barriers: Knee osteoarthritis, adherence to physical activity and healthy eating habits Coding Level of Care Code Est Pt Level 4 (97325) Diagnoses S/P kidney transplant Z94.0 Type 2 diabetes mellitus with hyperglycemia, without long-term current use of insulin E11.65 Diabetes mellitus hauling contractor insulin use: without penitentiary use Diabetes mellitus complication status: with hyperglycemia Pulmonary embolism, other, unspecified chronicity, unspecified whether acute cor pulmonale present I26.99 Pulmonary embolism type: other Chronicity: unspecified Acute cor pulmonale presence: unspecified Perimenopause N95.1 Primary osteoarthritis of left knee M17.12 Osteoarthritis type: primary Additional Codes VIRIDIANA-7 Assessment Billing - VIRIDIANA-7 Assessment Tool: VIRIDIANA-7 Assessment 74958 ([id number])
== END 2023-12-07 09:21 | disposition home or self-care (01) ==
PROVIDERS: PCP Physician Assistant; Visit Provider Physician Assistant
DX: E11.65 Type 2 diabetes mellitus with hyperglycemia (principal); I26.99 Other pulmonary embolism without acute cor pulmonale; Z94.0 Kidney transplant status; N95.1 Menopausal and female climacteric states; M17.12 Unilateral primary osteoarthritis, left knee
CPT/HCPCS: 83036; 99214

== ENCOUNTER 2023-12-28 13:11 | Outpatient (REF) | payer MEDICARE, MEDICAID, SELFPAY ==
[2023-12-29 22:28] LABS: Follicle Stimulating Hormone 20.8 mIU/mL
== END 2023-12-28 13:12 | disposition home or self-care (01) ==
LOC: HO.LAB 13:11
PROVIDERS: PCP Physician Assistant; Visit Provider Physician Assistant
DX: N95.1 Menopausal and female climacteric states (principal)
CPT/HCPCS: 36415; 83001

== ENCOUNTER 2024-02-09 08:48 | Outpatient (AMB) | payer MEDICARE, MEDICAID, SELFPAY ==
--- OUTSIDE RECORDS SUMMARY | 2024-02-09 09:04 | XMS_ITS | Continuity of Care Document ---
Author Organization [facility] Address [address] [place] [id number]- Care Team Providers Care Soda Fountain Clerk Name Role Phone Alexx Walker Primary Care Physician Encounter [facility] Date(s): 09/28/23 - 10/28/[address] [address]- Allergies, Adverse Reactions, Alerts Substance Reaction Severity Status lisinopril lip/facial swelling Active sulfa drugs 1 Rash Active shellfish swelling Active Motrin can't take d/t kidneys Activ e Ultram Itching Active Vicodin itching Active Pork Active 1Tolerates bactrim as outpt Medications amLODIPine 10 mg oral tablet 1 tablet = 10 mg, By Mouth, Daily, # 30 tablet, 0 Refills, Maintenance, 05/12/22 0:34:00 EST, Tablet, Partial fill upon patient request if the prescription is for a schedule II opioid drug. Start Date: 05/12/22 Status: Ordered CellCept 500 mg oral tablet 1 tablet = 500 mg, By Mouth, 2 times a day, # 120 tablet, 0 Refills, Maintenance, 08/18/23 20:12:00EDT, Tablet, Partial fill upon patient request if the prescription is for a schedule II opioid drug. Start Date: 08/18/23 Status: Ordered docusate sodium 100 mg oral capsule 100 mg, 1, capsule, By Mouth, 2 times a day, PRN, Refills 0, Maintenance, for constipation, 04/28/19 14:59:00 EST Start Date: 04/28/19 Status: Ordered famotidine 20 mg oral tablet 20 mg, 1, tablet, By Mouth, 2 times a day, # 180 tablet, Refills 0, Maintenance, 08/18/23 20:13:00 EDT, Partial fill upon patient request if the prescription is for a schedule II opioid drug. Start Date: 08/18/23 Status: Ordered Ozempic 8 mg/3 mL (2 mg dose) subcutaneous solution = 2 mg, Subcutaneous Injection, Every week, in the abdomen, thigh, or upper arm, # 3 mL, 0 Refills,Maintenance, 08/18/23 20:44:00 EDT, Solution, Partial fill upon patient request if the prescriptionis for a schedule II opioid drug. Start Date: 08/18/23 Status: Ordered predniSONE 2.5 mg oral tablet 1 tablet = 2.5 mg, By Mouth, Daily, # 14 tablet, 0 Refills, Maintenance, 08/18/23 20:14:00 EDT, Tablet, Partial fill upon patient request if the prescription is for a schedule II opioid drug. Start Date: 08/18/23 Status: Ordered ProAir HFA 90 mcg/inh inhalation aerosol 1 puffs, Inhalation, 4 times a day, PRN as needed for wheezing, # 18 Gm, 0 Refills, Maintenance, 08/18/23 20:14:00 EDT, Aerosol, Partial fill upon patient request if the prescription is for a schedule II opioid drug. Start Date: 08/18/23 Status: Ordered Prograf 1 mg oral capsule = 0.05 mg/kg, By Mouth, 2 times a day, 0 Refills, Maintenance, 08/18/23 20:13:00 EDT, Capsule, Partial fill upon patient request if the prescription is for a schedule II opioid drug. Start Date: 08/18/23 Status: Ordered Prograf 5 mg oral capsule 2 capsule = 10 mg, By Mouth, Every 12 hours, # 180 capsule, 0 Refills, Maintenance, 08/18/23 20:12:00 EDT, Capsule, Partial fill upon patient request if the prescription is for a schedule II opioid drug. Start Date: 08/18/23 Status: Ordered Protonix 40 mg oral delayed [...] 2:32:59, Tablet Start Date: 05/02/17 Status: Ordered Vitamin D 02396 iu oral capsule 50,000 International_Units, 1, capsule, [...] ANEMIA, UNSPECIFIED Confirmed Active MRSA Confirmed Active Obese class II Confirmed Active UNSPECIFIED DISORDER OF KIDNEY AND [...] Safety Implantable Status Assigning Authority Unknown Unknown [id number] Unknown 08/14/22 Unknown Unknown Active Unk nown Procedure Provider Procedure Date Device Type Site Creation of Arteriovenous Fistula Unknown 10/03/16 Un known Unknown Device Identifier Serial Number Lot or Batch Number Manufacturing Date Expiration Date Distinct Identification Code MRI Safety Implantable Status Assigning Authority Unknown Unknown [id number] Unknown 04/18/19 Unknown Unknown Active Unknown Patient Care team information Care Team Personnel Name: Saniya Hilton RN Position: S RN Member Role: Primary Care Nurse Name: Liane Prince RN Position: [facility] OB RN Member Role: Primary Care Nurse Name: Raegan Rivero RN Position: S RN Member Role: Primary Care Nurse Name: Rohini Mckee RN Position: [facility] SN RN Member Role: Primary Care Nurse Name: Rose Chase RN Position: [facility] RN Member Role: Primary Care Nurse Name: Marsha Berkowitz RN Position: [facility] RN Member Role: Primary Care Nurse Name: Rand Almazan RN Position: [facility] Rad RN Member Role: Primary Care Nurse Name: Cayla Adan NP Position: [facility] PCO Associate Professional Member Role: Primary Care Nurse Name: Key Hairston RN Position: [facility] SN RN Member Role: Primary Care Nurse Name: Betty Harrell RN Position: [facility] RN Member Role: Primary Care Nurse Name: Vero Osman NP Position: [facility] Associate Professional Member Role: Primary Care Nurse Name: Felicia Donovan Position: [facility] Outreach Member Role: Lifetime Consulting Physician Name: Griselda Membreno RN Position: [facility] RN Member Role: Primary Care Nurse Name: Gisel Guzman RN Position: [facility] RN Member Role: Primary Care Nurse Name: Danna Fernández RN Position: [facility] RN Member Role: Primary Care Nurse Name: Bonnie Jorge RN Position: [facility] RN Member Role: Primary Care Nurse Name: Jada An NP Position: [facility] Outreach Member Role: Primary Care Nurse Address: Address: [address] [place] [address]- Name: Yanira Schroeder RN Position: [facility] RN Member Role: Primary Care Nurse Name: Alexx Walker Position: Reference Physician Member Role: PCP Address: Address: [address] [facility] [address] [place] [address]- [place] Name: Baylee Orellana RN Position: [facility] AMB Nurse Member Role: Primary Care Nurse Name: Kemar Urbano RN Position: [facility] Outreach Member Role: Primary Care Nurse Name: Jaimee Ramirez RN Position: [facility] RN Member Role: Primary Care Nurse Name: Aneta Dean RN Position: [facility] TRISTON RN W/OE and Tasks Member Role: Primary Care Nurse Name: Katelyn Alberts RN Position: [facility] RN Member Role: Primary Care Nurse Name: Marya Kaye RN Position: [facility] RN Member Role: Primary Care Nurse Name: Maria Isabel Hare RN Position: [facility] RN Member Role: Primary Care Nurse Name: Maira Rushing Position: [facility] RN Member Role: Primary Care Nurse Name: Fox Ag DO Position: [facility] Renal MD Member Role: Lifetime Consulting Physician Address: Address: [address] [place], [place] [address] [place], [place] [address] Name: Maira Hodgson RN Position: [facility] SN RN Member Role: Primary Care Nurse Name: Carolyn Brown RN Position: [facility] RN Member Role: Primary Care Nurse Name: Eliot Brown RN Position: [facility] RN Member Role: Primary Care Nurse Name: Yury Mcbride Position: [facility] RN Member Role: Primary Care Nurse Name: Ilene Mcbride RN Position: [facility] RN Member Role: Primary Care Nurse Name: Bernadette Cornelius RN Position: [facility] RN Member Role: Primary Care Nurse Name: Han England III, RN Position: [facility] RN Member Role: Primary Care Nurse Name: Mery Cui RN Position: [facility] RN Member Role: Primary Care Nurse Name: Maricel Wolf RN Position: [facility] RN Member Role: Primary Care Nurse Name: Gabino Yost RN Position: [facility] RN Member Role: Primary Care Nurse Name: Faina Briceño RN Position: [facility] RN Member Role: Primary Care Nurse Name: Tawnya Galvan RN Position: [facility] RN Member Role: Primary Care Nurse Name: Ingrid Joseph RN Position: [facility] AMB Nurse Member Role: Primary Care Nurse Name: Richelle Ware RN Position: [facility] AMB Nurse Member Role: Primary Care Nurse Name: Fabian Swanson RN Position: [facility] RN Member Role: Primary Care Nurse Name: Neris Beck RN Position: [facility] RN Member Role: Primary Care Nurse Name: Marce Mcdonald RN Position: [facility] RN Member Role: Primary Care Nurse Name: Felicia Melendrez RN Position: [facility] Hospital Log Turner Member Role: Primary Care Nurse Name: Cristina Medina RN Position: [facility] RN Member Role: Primary Care Nurse Name: Julio Waggoner RN Position: [facility] ED RN W/OE and Tasks Member Role: Primary Care Nurse Name: Natalia Chong RN Position: [facility] RN Member Role: Primary Care Nurse Name: Olga Lidia Monk RN Position: [facility] RN Member Role: Primary Care Nurse Name: Erica Culver RN Position: [facility] Onco RN Member Role: Primary Care Nurse Name: Jayna Carter RN Position: [facility] RN Member Role: Primary Care Nurse Name: Anita Robles RN Position: [facility] Hospital Log Turner Member Role: Primary Care Nurse Name: Sandra Bennett RN Position: [facility] RN Member Role: Primary Care Nurse Name: Jose Junior MD Position: [facility] Renal MD Member Role: Lifetime Consulting Physician Address: Address: [address] [place] [address] [facility] [place] [address] [place] Care Team Related Persons Name: OYEL SCHAEFER Name: RAMAN LAMA Address: [place] [address] Name: NONE, NONE
--- OUTSIDE RECORDS SUMMARY | 2024-02-09 09:04 | XMS_ITS | Continuity of Care Document ---
Author Organization [facility] Address [address] [place] [address]- Care Team Providers Care Social Media Editor Name Role Phone Alexx Walker Primary Care Physician Encounter [facility] Date(s): 01/04/24 - 01/05/[address] [address]- Discharge Disposition: A-D/C Home Attending Physician: Angela Contreras MD Admitting Physician: Angela Contreras MD Referring Physician: Not on Staff, Referring MD Allergies, Adverse Reactions, Alerts Substance Reaction Severity Status Ultram Itching Active Pork Active lisinopril lip/facial swelling Active sulfa drugs 1 Rash Active shellfish swelling Active Motrin can't take d/t kidneys Activ e Vicodin itching Active 1Tolerates bactrim as outpt Medications amLODIPine [...] Start Date: 05/02/17 Status: Ordered Vitamin D 43292 iu oral capsule 50,000 International_Units, 1, capsule, [...] Confirmed Active MRSA Confirmed Active Obese class I Confirmed Active UNSPECIFIED DISORDER OF KIDNEY AND [...] oldest [Reference Range]: 1 2 3 Height 168 cm (01/05/24 4:03 AM) 168 cm (01/04/24 7:31 PM) Weight 98.6 kg (01/05/24 4:03 AM) 98.6 kg (01/04/24 7:31 PM) Oxygen Saturation [94-100 %] 99 % (01/05/24 4:03 AM) 99 % (01/05/24 12:00 AM) 99 % (01/04/24 9:59 PM) Pulse Rate [55-90 bpm] 77 bpm (01/05/24 4:03 AM) 80 bpm (01/05/24 12:00 AM) 78 bpm (01/04/24 9:59 PM) Body Mass Index [18.5-24.99 kg/m2] 34.93 kg/m2 *>HHI* (01/05/24 4:03 AM) Blood Pressure [90-138/55-84 mm Hg] 116/77mm Hg (01/05/24 4:03 AM) 118/78mm Hg (01/05/24 12:00 AM) 116/82mm Hg (01/04/24 9:59 PM) Respiratory Rate [16-30 br/min] 16 br/min (01/05/24 4:03 AM) 18 br/min (01/05/24 12:00 AM) 20 br/min (01/04/24 9:59 PM) Temperature [96.8-100.4 DegF] 98.0 DegF (01/05/24 12:00 AM) 98.5 DegF (01/04/24 7:31 PM) Mode of Delivery (Oxygen) Room air (01/05/24 4:03 AM) Room air (01/05/24 12:00 AM) Room air (01/04/24 9:59 PM) Blood pressure sites Arm, left (01/05/24 4:03 AM) Arm, right (01/05/24 12:00 AM) Arm, right (01/04/24 9:59 PM) Temperature Route Oral (01/05/24 12:00 AM) Oral (01/04/24 7:31 PM) Dry Weight 98.6 kg (01/05/24 4:03 AM) 98.6 kg (01/04/24 7:31 PM) Weight Obtained Via Standing scale (01/04/24 7:31 PM) Dry Weight Obtained Via Standing scale (01/04/24 7:31 PM) Social History Social History Type Response [...] Safety Implantable Status Assigning Authority Unknown Unknown [id number] Unknown 08/14/22 Unknown Unknown Active Unk nown Procedure Provider Procedure Date Device Type Site Creation of Arteriovenous Fistula Unknown 10/03/16 Un known Unknown Device Identifier Serial Number Lot or Batch Number Manufacturing Date Expiration Date Distinct Identification Code MRI Safety Implantable Status Assigning Authority Unknown Unknown [id number] Unknown 04/18/19 Unknown Unknown Active Unknown EKG study * Event Display: EKG Authored Date: * Event Display: ECG 12-Lead Authored Date: Please click on pdf link to open report * Event Display: ECG 12-Lead Authored Date: Ventricular Rate: 94 BPM Atrial Rate: 94 BPM P-R Interval: 144 ms QRS Duration: 80 ms Q-T Interval: 370 ms QTC Calculation(Bazett): 462 ms P Ironside: 59 degrees R Ironside: -2 degrees T Ironside: 63 degrees Normal sinus rhythm Normal ECG When compared with ECG of 01-OCT-2023 13:41, No significant change was found Confirmed by JOSEPH TREVIZO MD ([id number]) on 01/05/2024 8:21:24 PM Newberg: JOSEPH TREVIZO MD Note * Angela Contreras MD: PERFORM Event Display: Patient Education Leaflets Authored Date: Noncardiac Chest Pain ?? [id number] Noncardiac Chest Pain In most cases, people who come to the emergency room with chest pain don???t have a problem with their heart. Instead, the pain is caused by other conditions. It's important for the healthcare team to be sure you are not having a life-threatening cause for chest pain such as: ??? Heart attack ??? Blood clot in the lungs ??? Collapsed lung ??? Ruptured esophagus ??? Tearing of the aorta Once these major causes have been ruled out, you may have further evaluation for other causes of chest pain. These may be problems with the lungs, muscles, bones, digestive tract, nerves, or mental health. They include: ??? Inflammation around the lungs (pleurisy) ??? Collapsed lung (pneumothorax) ??? Lung inflammation (pleuritis or pneumonitis) ??? Fluid around the lung (pleural effusion) ??? Lung cancer (rare cause of chest pain) ??? Inflamed cartilage between the ribs (costochondritis) ??? Fibromyalgia ??? Rheumatoid arthritis ??? Chest wall strain ??? Reflux ??? Stomach ulcer ??? Spasms of the esophagus ??? Gall stones ??? Gallbladder inflammation ??? Panic or anxiety attacks ??? Emotional distress Your pain doesn???t seem to be coming from your heart. But sometimes the signs of a serious problemtake more time to appear. Continue to watch for the warning signs listed below. Home care Follow these guidelines when caring for yourself at home: ??? Rest today and don't do any strenuousactivity. ??? Take any prescribed medicine as directed. ?? Follow-up care Follow up with your healthcare provider as advised. ?? Call 911 Call 911 if any of these occur: ??? A change in the type of pain: if it feels different, becomes more severe, lasts longer, or begins to spread into your shoulder, arm, neck, jaw or back ??? Shortness of breath or increased pain with breathing ??? Weakness, dizziness, or fainting ??? Rapid heart beat ??? Crushing sensation in your chest ?? When to seek medical advice Call your healthcare provider right away if any of these occur: ??? Cough with dark colored sputum (phlegm) or blood ??? Fever of 100.4??F (38??C) or higher, or as directed by your healthcare provider ??? Swelling, pain or redness in one leg ?? Last Reviewed Date: 2021 ?? [id number] [employer]. All rights reserved. This information is not intended as a substitute for professional medical care. Always follow your healthcare professional's instructions. ?? Patient Care team information Care Team Personnel Name: Saniya Hilton RN Position: [facility] RN Member Role: Primary Care Nurse Name: Liane Prince RN Position: [facility] OB RN Member Role: Primary Care Nurse Name: Raegan Rivero RN Position: [facility] RN Member Role: Primary Care Nurse Name: Rohini Mckee RN Position: [facility] SN RN Member Role: Primary Care Nurse Name: Rose Chase RN Position: [facility] RN Member Role: Primary Care Nurse Name: Marsha Berkowitz RN Position: [facility] RN Member Role: Primary Care Nurse Name: Rand Almazan RN Position: [facility] Rad RN Member Role: Primary Care Nurse Name: Cayla Adan NP Position: [facility] PCO Associate Professional Member Role: Primary Care Nurse Name: Key Hairston RN Position: [facility] SN RN Member Role: Primary Care Nurse Name: Betty Harrell RN Position: [facility] RN Member Role: Primary Care Nurse Name: Vero Osman NP Position: [facility] Associate Professional Member Role: Primary Care Nurse Name: Felicia Donovan Position: [facility] Outreach Member Role: Lifetime Consulting Physician Name: Griselda Membreno RN Position: [facility] RN Member Role: Primary Care Nurse Name: Gisel Guzman RN Position: [facility] RN Member Role: Primary Care Nurse Name: Danna Fernández RN Position: [facility] RN Member Role: Primary Care Nurse Name: Bonnie Jorge RN Position: [facility] RN Member Role: Primary Care Nurse Name: Jada An NP Position: [facility] Outreach Member Role: Primary Care Nurse Address: Address: [address] [place] [address]- [place] Name: Yanira Schroeder RN Position: [facility] RN Member Role: Primary Care Nurse Name: Alexx Walker Position: Reference Physician Member Role: PCP Address: Address: [address] [place] [address]- [place] Name: Baylee Orellana RN Position: [facility] AMB Nurse Member Role: Primary Care Nurse Name: Kemar Urbano RN Position: [facility] Outreach Member Role: Primary Care Nurse Name: Jaimee Ramirez RN Position: [facility] RN Member Role: Primary Care Nurse Name: Aneta Dean RN Position: [facility] ED RN W/OE and Tasks Member Role: Primary Care Nurse Name: Katelyn Alberts RN Position: [facility] RN Member Role: Primary Care Nurse Name: Marya Kaye RN Position: [facility] RN Member Role: Primary Care Nurse Name: Maria Isabel Hare RN Position: [facility] RN Member Role: Primary Care Nurse Name: Maira Rushing Position: [facility] RN Member Role: Primary Care Nurse Name: Fox Ag DO Position: [facility] Renal MD Member Role: Lifetime Consulting Physician Address: Address: [address] [facility] [place] [address]- [place] Name: Maira Hodgson RN Position: [facility] RN Member Role: Primary Care Nurse Name: Carolyn Brown RN Position: [facility] RN Member Role: Primary Care Nurse Name: Eliot Brown RN Position: [facility] RN Member Role: Primary Care Nurse Name: Yury Mcbride Position: [facility] RN Member Role: Primary Care Nurse Name: Ilene Mcbride RN Position: [facility] RN Member Role: Primary Care Nurse Name: Bernadette Cornelius RN Position: [facility] RN Member Role: Primary Care Nurse Name: Han England III, RN Position: [facility] RN Member Role: Primary Care Nurse Name: Mery Cui RN Position: [facility] RN Member Role: Primary Care Nurse Name: Maricel Wolf RN Position: [facility] RN Member Role: Primary Care Nurse Name: Gabino Yost RN Position: [facility] RN Member Role: Primary Care Nurse Name: Faina Briceño RN Position: [facility] RN Member Role: Primary Care Nurse Name: Tawnya Galvan RN Position: [facility] RN Member Role: Primary Care Nurse Name: Ingrid Joseph RN Position: [facility] AMB Nurse Member Role: Primary Care Nurse Name: Richelle Ware RN Position: [facility] AMB Nurse Member Role: Primary Care Nurse Name: Fabian Swanson RN Position: [facility] RN Member Role: Primary Care Nurse Name: Neris Beck RN Position: [facility] RN Member Role: Primary Care Nurse Name: Cony Banuelos Position: [facility] RN Member Role: Primary Care Nurse Name: Marce Mcdonald RN Position: [facility] RN Member Role: Primary Care Nurse Name: Unique Zuluaga RN Position: [facility] AMB Nurse Member Role: Primary Care Nurse Name: Felicia Melendrez RN Position: [facility] Watch Inspector Final Movement Member Role: Primary Care Nurse Name: Cristina Medina RN Position: [facility] RN Member Role: Primary Care Nurse Name: Julio Waggoner RN Position: [facility] ED RN W/OE and Tasks Member Role: Primary Care Nurse Name: Natalia Chong RN Position: [facility] RN Member Role: Primary Care Nurse Name: Olga Lidia Monk RN Position: [facility] RN Member Role: Primary Care Nurse Name: Erica Culver RN Position: [facility] Onco RN Member Role: Primary Care Nurse Name: Jayna Carter RN Position: [facility] RN Member Role: Primary Care Nurse Name: Anita Robles RN Position: [facility] Watch Inspector Final Movement Member Role: Primary Care Nurse Name: Sandra Bennett RN Position: [facility] RN Member Role: Primary Care Nurse Name: Jose Junior MD Position: [facility] Renal MD Member Role: Lifetime Consulting Physician Address: Address: [address] [place] [address] [facility] [place] [address]- [place] Care Team Related Persons Name: YOEL SCHAEFER Name: RAMAN LAMA Address: [place] [address] Name: NONE, NONE
--- OUTSIDE RECORDS SUMMARY | 2024-02-09 09:04 | XMS_ITS | Continuity of Care Document ---
Author Organization [facility] Address [address] [place] [address]- Care Team Providers Care Radio Division Officer Name Role Phone Alexx Walker Primary Care Physician Encounter [facility] Date(s): 09/29/23 - 10/06/23 [facility] [address] [place], [place] [address] Attending Physician: Celina AMAYA, Susanne Palmer Admitting Physician: Susanne Patrick MD Referring Physician: Alexx Walker Allergies, Adverse Reactions, Alerts Substance Reaction Severity Status sulfa drugs 1 Rash Active Pork Active lisinopril lip/facial swelling Active shellfish swelling [...] Start Date: 05/02/17 Status: Ordered Vitamin D 93954 iu oral capsule 50,000 International_Units, 1, capsule, [...] oldest [Reference Range]: 1 Height 167 cm (09/29/23 3:01 PM) Weight 100.2 kg (09/29/23 3:01 PM) Social History Social History Type Response [...] Safety Implantable Status Assigning Authority Unknown Unknown [id number] Unknown 08/14/22 Unknown Unknown Active Unk nown Procedure Provider Procedure Date Device Type Site Creation of Arteriovenous Fistula Unknown 10/03/16 Un known Unknown Device Identifier Serial Number Lot or Batch Number Manufacturing Date Expiration Date Distinct Identification Code MRI Safety Implantable Status Assigning Authority Unknown Unknown [id number] Unknown 04/18/19 Unknown Unknown Active Unknown Patient Care team information Care Team Personnel Name: Saniya Hilton RN Position: [facility] RN Member Role: Primary Care Nurse Name: Liane Prince RN Position: [facility] OB RN Member Role: Primary Care Nurse Name: Raegan Rivero RN Position: [facility] RN Member Role: Primary Care Nurse Name: Rohini Mckee RN Position: [facility] SN RN Member Role: Primary Care Nurse Name: Rose Chase RN Position: [facility] RN Member Role: Primary Care Nurse Name: Marsha Berkowitz RN Position: [facility] RN Member Role: Primary Care Nurse Name: Radn Almazan RN Position: [facility] Rad RN Member Role: Primary Care Nurse Name: Cayla Adan NP Position: [facility] PCO Associate Professional Member Role: Primary Care Nurse Name: Key Hairston RN Position: [facility] SN RN Member Role: Primary Care Nurse Name: Betty Harrell RN Position: [facility] RN Member Role: Primary Care Nurse Name: Vero Osman NP Position: [facility] Associate Professional Member Role: Primary Care Nurse Name: Felicia Donovan Position: [facility] Outreach Member Role: Lifetime Consulting Physician Name: Griselda Membreno RN Position: [facility] RN Member Role: Primary Care Nurse Name: Gisel Guzman RN Position: [facility] RN Member Role: Primary Care Nurse Name: Danna Fernández RN Position: [facility] RN Member Role: Primary Care Nurse Name: Bonnie Jorge RN Position: [facility] RN Member Role: Primary Care Nurse Name: Jada An NP Position: [facility] Outreach Member Role: Primary Care Nurse Address: Address: [address] [place] [address]- [place] Name: Yanira Schroeder RN Position: [facility] RN Member Role: Primary Care Nurse Name: Alexx Walker Position: Reference Physician Member Role: PCP Address: Address: [address] [place] [address]- [place] Name: Baylee Orellana RN Position: [facility] AMB Nurse Member Role: Primary Care Nurse Name: Kemar Urbano RN Position: [facility] Outreach Member Role: Primary Care Nurse Name: Jaimee Ramirez RN Position: [facility] RN Member Role: Primary Care Nurse Name: Aneta Dean RN Position: [facility] ED RN W/OE and Tasks Member Role: Primary Care Nurse Name: Katelyn Alberts RN Position: [facility] RN Member Role: Primary Care Nurse Name: Marya Kaye RN Position: [facility] RN Member Role: Primary Care Nurse Name: Maria Isabel Hare RN Position: [facility] RN Member Role: Primary Care Nurse Name: Maira Rushing Position: [facility] RN Member Role: Primary Care Nurse Name: Fox Ag DO Position: [facility] Renal MD Member Role: Lifetime Consulting Physician Address: Address: [address] [place], [place] [address] [place], [place] [address] Name: Maira Hodgson RN Position: [facility] SN RN Member Role: Primary Care Nurse Name: Carolyn Brown RN Position: [facility] RN Member Role: Primary Care Nurse Name: Eliot Brown RN Position: [facility] RN Member Role: Primary Care Nurse Name: Yury Mcbride Position: [facility] RN Member Role: Primary Care Nurse Name: Ilene Mcbride RN Position: [facility] RN Member Role: Primary Care Nurse Name: Bernadette Cornelius RN Position: [facility] RN Member Role: Primary Care Nurse Name: Han England III, RN Position: [facility] RN Member Role: Primary Care Nurse Name: Mery Cui RN Position: [facility] RN Member Role: Primary Care Nurse Name: Maricel Wolf RN Position: [facility] RN Member Role: Primary Care Nurse Name: Gabino Yost RN Position: [facility] RN Member Role: Primary Care Nurse Name: Faina Briceño RN Position: [facility] RN Member Role: Primary Care Nurse Name: Tawnya Galvan RN Position: [facility] RN Member Role: Primary Care Nurse Name: Ingrid Joseph RN Position: [facility] AMB Nurse Member Role: Primary Care Nurse Name: Richelle Ware RN Position: [facility] AMB Nurse Member Role: Primary Care Nurse Name: Fabian Swanson RN Position: [facility] RN Member Role: Primary Care Nurse Name: Neris Beck RN Position: [facility] RN Member Role: Primary Care Nurse Name: Marce Mcdonald RN Position: [facility] RN Member Role: Primary Care Nurse Name: Felicia Melendrez RN Position: [facility] Jewelry Sorter Member Role: Primary Care Nurse Name: Cristina Medina RN Position: [facility] RN Member Role: Primary Care Nurse Name: Julio Waggoner RN Position: [facility] ED RN W/OE and Tasks Member Role: Primary Care Nurse Name: Natalia Chong RN Position: [facility] RN Member Role: Primary Care Nurse Name: Olga Lidia Monk RN Position: [facility] RN Member Role: Primary Care Nurse Name: Erica Culver RN Position: [facility] Onco RN Member Role: Primary Care Nurse Name: Jayna Carter RN Position: [facility] RN Member Role: Primary Care Nurse Name: Anita Robles RN Position: [facility] Jewelry Sorter Member Role: Primary Care Nurse Name: Sandra Bennett RN Position: [facility] RN Member Role: Primary Care Nurse Name: Jose Junior MD Position: [facility] Renal MD Member Role: Lifetime Consulting Physician Address: Address: [address] [place] [address] [facility] [place] [address]- [place] Care Team Related Persons Name: YOEL SCHAEFER Name: RAMAN LAMA Address: [place] [address] Name: NONE, NONE
--- OUTSIDE RECORDS SUMMARY | 2024-02-09 09:04 | XMS_ITS | Continuity of Care Document ---
Author Organization [facility] Address [address] [place] [address]- Care Team Providers Care Mattress Renovator Name Role Phone Alexx Walker Primary Care Physician [phone] [facility] [place] [facility] Date(s): 09/29/23 - 10/29/23 [facility] [address] [place], [place] [address] Attending Physician: Katia Desir Admitting Physician: [...] Start Date: 05/02/17 Status: Ordered Vitamin D 72072 iu oral capsule 50,000 International_Units, 1, capsule, [...] Safety Implantable Status Assigning Authority Unknown Unknown [id number] Unknown 08/14/22 Unknown Unknown Active Unk nown Procedure Provider Procedure Date Device Type Site Creation of Arteriovenous Fistula Unknown 10/03/16 Un known Unknown Device Identifier Serial Number Lot or Batch Number Manufacturing Date Expiration Date Distinct Identification Code MRI Safety Implantable Status Assigning Authority Unknown Unknown [id number] Unknown 04/18/19 Unknown Unknown Active Unknown Patient Care team information Care Team Personnel Name: Saniya Hilton RN Position: S RN Member Role: Primary Care Nurse Name: Liane Prince RN Position: [facility] OB RN Member Role: Primary Care Nurse Name: Raegan Rivero RN Position: [facility] RN Member Role: Primary Care Nurse Name: Rohini Mckee RN Position: [facility] SN RN Member Role: Primary Care Nurse Name: Rose Chase RN Position: [facility] RN Member Role: Primary Care Nurse Name: Marsha Berkowitz RN Position: [facility] RN Member Role: Primary Care Nurse Name: Rand Almazan RN Position: [facility] Rad RN Member Role: Primary Care Nurse Name: Cayla Adan NP Position: [facility] PCO Associate Professional Member Role: Primary Care Nurse Name: Key Hairston RN Position: [facility] SN RN Member Role: Primary Care Nurse Name: Betty Harrell RN Position: [facility] RN Member Role: Primary Care Nurse Name: Vero Osman NP Position: [facility] Associate Professional Member Role: Primary Care Nurse Name: Felicia Donovan Position: [facility] Outreach Member Role: Lifetime Consulting Physician Name: Griselda Membreno RN Position: [facility] RN Member Role: Primary Care Nurse Name: Gisel Guzman RN Position: [facility] RN Member Role: Primary Care Nurse Name: Danna Fernández RN Position: [facility] RN Member Role: Primary Care Nurse Name: Bonnie Jorge RN Position: [facility] RN Member Role: Primary Care Nurse Name: Jada An NP Position: [facility] Outreach Member Role: Primary Care Nurse Address: Address: [address] [place] [address]- [place] Name: Yanira Schroeder RN Position: [facility] RN Member Role: Primary Care Nurse Name: Alexx Walker Position: Reference Physician Member Role: PCP Address: Address: [address] [place] [address] [address] [place] [address]- [place] Name: Baylee Orellana RN Position: [facility] AMB Nurse Member Role: Primary Care Nurse Name: Kemar Urbano RN Position: [facility] Outreach Member Role: Primary Care Nurse Name: Jaimee Ramirez RN Position: [facility] RN Member Role: Primary Care Nurse Name: Aneta Dean RN Position: [facility] ED RN W/OE and Tasks Member Role: Primary Care Nurse Name: Katelyn Alberts RN Position: [facility] RN Member Role: Primary Care Nurse Name: Marya Kaye RN Position: [facility] RN Member Role: Primary Care Nurse Name: Maria Isabel Hare RN Position: [facility] RN Member Role: Primary Care Nurse Name: Maira Rushing Position: [facility] RN Member Role: Primary Care Nurse Name: Fox Ag DO Position: [facility] Renal MD Member Role: Lifetime Consulting Physician Address: Address: [address] [place], [place] [address] [place], [place] [address] Name: Maira Hodgson RN Position: [facility] SN RN Member Role: Primary Care Nurse Name: Carolyn Brown RN Position: [facility] RN Member Role: Primary Care Nurse Name: Eliot Brown RN Position: [facility] RN Member Role: Primary Care Nurse Name: Yury Mcbride Position: [facility] RN Member Role: Primary Care Nurse Name: Ilene Mcbride RN Position: [facility] RN Member Role: Primary Care Nurse Name: Bernadette Cornelius RN Position: [facility] RN Member Role: Primary Care Nurse Name: Han England III, RN Position: [facility] RN Member Role: Primary Care Nurse Name: Mery Cui RN Position: [facility] RN Member Role: Primary Care Nurse Name: Maricel Wolf RN Position: [facility] RN Member Role: Primary Care Nurse Name: Gabino Yost RN Position: [facility] RN Member Role: Primary Care Nurse Name: Faina Briceño RN Position: [facility] RN Member Role: Primary Care Nurse Name: Tawnya Galvan RN Position: [facility] RN Member Role: Primary Care Nurse Name: Ingrid Joseph RN Position: [facility] AMB Nurse Member Role: Primary Care Nurse Name: Richelle Ware RN Position: [facility] AMB Nurse Member Role: Primary Care Nurse Name: Fabian Swanson RN Position: [facility] RN Member Role: Primary Care Nurse Name: Neris Beck RN Position: [facility] RN Member Role: Primary Care Nurse Name: Marce Mcdonald RN Position: [facility] RN Member Role: Primary Care Nurse Name: Felicia Melendrez RN Position: [facility] Hospital Benzol Operator Member Role: Primary Care Nurse Name: Cristina Medina RN Position: [facility] RN Member Role: Primary Care Nurse Name: Julio Waggoner RN Position: [facility] ED RN W/OE and Tasks Member Role: Primary Care Nurse Name: Natalia Chong RN Position: [facility] RN Member Role: Primary Care Nurse Name: Olga Lidia Monk RN Position: [facility] RN Member Role: Primary Care Nurse Name: Abiola ALEXANDER, Erica Tirado Position: [facility] Onco RN Member Role: Primary Care Nurse Name: Jayna Carter RN Position: [facility] RN Member Role: Primary Care Nurse Name: Anita Robles RN Position: [facility] Hospital Benzol Operator Member Role: Primary Care Nurse Name: Sandra Bennett RN Position: [facility] RN Member Role: Primary Care Nurse Name: Jose Junior MD Position: [facility] Renal MD Member Role: Lifetime Consulting Physician Address: Address: [address] [place] [address] [facility] [place] [address]- [place] Care Team Related Persons Name: YOEL SCHAEFER Name: RAMAN LAMA Address: [place] [address] Name: NONE, NONE
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
--- OUTSIDE RECORDS SUMMARY | 2024-02-09 09:05 | XMS_ITS | Continuity of Care Document ---
Author Organization [facility] ter Address [address] [place] [id number] Care Team Providers Care Patient Manager Name Role Phone Alexx Walker Primary Care Physician Encounter [facility] [place] [facility] R [id number] Date(s): 08/20/23 - 08/23/[address] [address]- Encounter Diagnosis GI bleed, abdominal pain(Final) - 08/18/23 Discharge Disposition: A-D/C Home Attending Physician: Martha AMAYA, Quinn Irizarry Admitting Physician: Duncan Kim DO Referring Physician: Not on Staff, Referring MD Allergies, Adverse Reactions, Alerts Substance Reaction Severity Status shellfish swelling Active Ultram Itching Active Pork Active lisinopril lip/facial swelling Active sulfa drugs 1 Rash Active Motrin can't take d/t kidneys Activ e Vicodin itching Active 1Tolerates bactrim as outpt Medications amLODIPine 10 mg oral tablet 10 mg, Tablet, By Mouth, 08/23/23 9:00:00 EDT Start Date: 08/23/23 Stop Date: 08/23/23 Status: Completed amLODIPine 10 mg oral tablet 1 tablet [...] opioid drug. Start Date: 08/18/23 Status: Ordered Dilaudid Inj 1 mg, Injection, IV Push Slowly, Every 6 hours, PRN for Pain , Severe, Routine, 08/19/23 9:29:00 EDT Start Date: 08/19/23 Stop Date: 08/23/23 Status: Discontinued docusate sodium 100 mg oral capsule 100 [...] opioid drug. Start Date: 08/18/23 Status: Ordered ondansetron 4 mg oral tablet 1 tablet = 4 mg, By Mouth, Every 12 hours, PRN Vomiting, for 3 days, # 6 tablet, 0 Refills, Acute 08/26/23 8:29:00 EDT, 08/23/23 8:29:00 EDT, Tablet, [facility], Partial fill upon patient request if the prescription is for a schedule II... Start Date: 08/23/23 Stop Date: 08/26/23 Status: Ordered Ozempic 8 mg/3 mL (2 [...] Start Date: 05/02/17 Status: Ordered Vitamin D 24793 iu oral capsule 50,000 International_Units, 1, capsule, [...] or tubuloreticular structrs. Immunofluor Ab's negative. Results Orders for Microbiology Reports Name Date Wet Prep 08/18/23 Microbiology Reports TEST:Wet Prep STATUS:Auth (Verified) BODY SITE: SOURCE:VAGINA COLLECTED DATE/TIME:08/18/23 5:34 PM Wet Prep SPECIMEN DESCRIPTION : VAGINAL SPECIMEN SPECIAL REQUESTS : NONE DIRECT EXAM : 1+ WHITE BLOOD CELLS 1+ CLUE CELLS NO YEAST OBSERVED NO TRICHOMONAS OBSERVED REPORT STATUS : FINAL 08/18/2023 Radiology Reports * Exam Date Time Procedure Performing Provider Status 08/18/23 5:[address] Abdomen and Pelvis W/O Contrast Neris You; Auth (Verified) Notes: (CT Abdomen and Pelvis W/O Contrast) Reason For Exam: Pain RESULT: CT Abdomen and Pelvis W/O Contrast CT Abdomen and Pelvis W/O Contrast INDICATION/CLINICAL QUESTION: Hx of Present Illness: CP epigastric pain N V D also lt knee pain : pt c o one week of chest pain, epigastric upper abd pain, nausea, vomiting and diarrhea. pt reports her doctor changed her medications- was taking Evgeny and changed to Ozempic recently.; Reason: Pain; Clinical Question(s): Diverticulitis; Order Comment: / Diverticulitis. TECHNIQUE: Spiral CT through the abdomen and pelvis without IV contrast formatted in 3 planes. The study was performed without oral contrast. Weight- based protocol using automatic tube modulation wasused to optimize exposure parameters. COMPARISON: 07/28/2017 CT abdomen and pelvis. 05/15/2020 mammogram. FINDINGS: Evaluation of the abdominal and pelvic viscera is suboptimal without intravenous contrast. Soda Flaker View Findings, Lines and Tubes: None. Visualized Chest: Mild right basilar atelectasis or scarring. No pleural effusion. Normal heart size. No pericardial effusion. Partially imaged 2.5 cm nodule in the right breast, fairly unchanged from 05/15/2020 mammogram. Diaphragm: Unremarkable. Liver: Normal morphology and attenuation. Gallbladder: No CT evidence of gallbladder pathology. Bile ducts: No bile duct dilation. Spleen: Normal size. Pancreas: No peripancreatic inflammatory changes. Adrenal Glands: Normal. Kidneys and Ureters: Atrophic round valley kidneys. 0.3 cm calculus at the right kidney lower pole. Rightlower quadrant renal transplant. No hydronephrosis within the transplant. Mild fat stranding and trace fluid superior to the transplant, although uncertain etiology and significance. Bladder: Normal. Stomach, Small bowel and Large Bowel: The stomach is normal. The small bowel is normal in caliber, with no evidence of a bowel obstruction. Fluid within several small bowel loops, a nonspecific finding. The rectum is normal. The colon is normal. Appendix: Normal. Peritoneum, omentum and mesentery: Trace amount of fluid in the right lower quadrant just superior to the right lower quadrant transplant. No omental or mesenteric lesions. Lymph nodes: Multiple prominent, but not pathologically enlarged lymph nodes, similar to prior study. Blood vessels: Mild vascular calcifications but no aneurysm. Abdominal and pelvic wall: Skin thickening in the anterior abdominal wall has increased from 2018 and could represent a cellulitis. Reproductive organs: Fibroid uterus. Bones: Diffuse sclerosis of the osseous structures probably due to renal osteodystrophy. Degenerative changes in the spine. Old right pubic bone fracture. IMPRESSION: 1. No definite acute findings in the abdomen or pelvis. 2. Right lower quadrant renal transplant appears normal on noncontrast evaluation, with no hydronephrosis. Mild inflammatory changes surrounding the transplant, and trace amount fluid superior to thetransplant kidney, of uncertain significance. Correlate with renal function and any more recent prior studies show stability of this finding. 3. Mild thickening of the skin anterior abdominal wall in 2018 and could indicate a cellulitis. Correlate with physical examination. 4. Fibroid uterus. WSN: [id number] Ordering Physician: Rachel Hernandez Dictated By: Myke Birch MD Dictated Date/Time: 08/18/23 5:17 pm Reviewed By: Myke Birch MD Signed By: Myke Birch MD Signed Date/Time: 08/18/23 5:17 pm Transcribed By: BAIGAIL Transcribed Date/Time: 08/18/23 5:07 pm * Exam Date Time Procedure Performing Provider Status 08/18/23 12:41 PM Chest 2 Views Frontal and Lat Ariadne Howell; Naomy (Verified) Notes: (Chest 2 Views Frontal and Lat) Reason For Exam: Chest Pain;Other: RESULT: Chest 2 Views Frontal and Lat Examination: Chest performed on 08/18/2023. History: Chest pain. Findings: Frontal and lateral views of the chest are compared to a prior study dated 07/09/2023. The cardiac and mediastinal silhouettes are within normal limits. Pulmonary vascular congestion is noted. A left shoulder arthroplasty is demonstrated. Vascular stents within the left upper extremityare seen. IMPRESSION: Pulmonary vascular congestion. WSN: [id number] Ordering Physician: Rachel Hernandez Dictated By: Lexis Cervantes MD Dictated Date/Time: 08/18/23 12:44 p Reviewed By: Lexis Cervantes MD Signed By: Lexis Cervantes MD Signed Date/Time: 08/18/23 12:44 pm Transcribed By: ABIGAIL Transcribed Date/Time: 08/18/23 12:43 pm Vital Signs Most recent to oldest [Reference Range]: 1 2 3 Height 167 cm (08/23/23 12:31 AM) 167 cm (08/22/23 7:42 PM) 167 cm (08/22/23 4:37 AM) Weight 100.2 kg (08/18/23 7:56 PM) 100 kg (08/18/23 11:08 AM) Oxygen Saturation [94-100 %] 100 % (08/23/23 7:00 AM) 100 % (08/23/23 12:31 AM) 98 % (08/22/23 7:42 PM) Pulse Rate [55-90 bpm] 66 bpm (08/23/23 7:00 AM) 71 bpm (08/23/23 12:31 AM) 78 bpm (08/22/23 7:42 PM) Body Mass Index [18.5-24.99 kg/m2] 35.93 kg/m2 *>HHI* (08/18/23 7:56 PM) 35.01 kg/m2 *>HHI* (08/18/23 11:08 AM) Blood Pressure [90-138/55-84 mm Hg] 121/59mm Hg (08/23/23 8:08 AM) 121/59mm Hg (08/23/23 7:00 AM) 107/50mm Hg (08/23/23 12:31 AM) Respiratory Rate [16-30 br/min] 18 br/min (08/23/23 7:00 AM) 18 br/min (08/23/23 4:07 AM) 17 br/min (08/23/23 12:31 AM) Temperature [96.8-100.4 DegF] 97.6 DegF (08/23/23 7:00 AM) 98 DegF (08/23/23 12:31 AM) 98.2 DegF (08/22/23 7:42 PM) Mode of Delivery (Oxygen) Room air (08/23/23 7:00 AM) Room air (08/23/23 12:31 AM) Room air (08/22/23 7:42 PM) Blood pressure sites Arm, right (08/23/23 7:00 AM) Arm, left (08/23/23 12:31 AM) Arm, right (08/22/23 7:42 PM) Temperature Route Oral (08/23/23 7:00 AM) Oral (08/23/23 12:31 AM) Oral (08/22/23 7:42 PM) Dry Weight 100.2 kg (08/18/23 7:56 PM) 100 kg (08/18/23 11:08 AM) Weight Obtained Via Patient/family state d (08/18/23 11:08 AM) Dry Weight Obtained Via Patient/family s tated (08/18/23 11:08 AM) Social History Social History Type Response [...] Safety Implantable Status Assigning Authority Unknown Unknown [id number] Unknown 08/14/22 Unknown Unknown Active Unk nown Procedure Provider Procedure Date Device Type Site Creation of Arteriovenous Fistula Unknown 10/03/16 Un known Unknown Device Identifier Serial Number Lot or Batch Number Manufacturing Date Expiration Date Distinct Identification Code MRI Safety Implantable Status Assigning Authority Unknown Unknown [id number] Unknown 04/18/19 Unknown Unknown Active Unknown Admission evaluation note * Kosta MAAYA, Enrique: PERFORM Event Display: Admission Note Authored Date: [id number] Patient: ??KELBY, CLOVER ? Age:??47 Years?Sex:??Female?:??1975?? Chief Complaint/Reason for Consultation Abdominal pain History of Present Illness The patient is a 47 years old female with past medical history of ESRD s/p kidney transplant, CKD??stage III, hypertension, GERD??presented to ER with a chief complaint of??abdominal pain. ? The patient reported that she??has GERD and about 1 day ago, she developed epigastric pain that shedescribed as sudden onset, burning in nature, 7 out of 10, radiates to her chest, with no aggravating factors, alleviated slightly by??pantoprazole, associated with??multiple??episodes of??nonbloody, nonbilious??vomiting??but denied any fever, chills. ?? The patient specifically denied that she did not see any blood in the vomiting and vomiting was not??dark red to black in color. ?? During my evaluation, patient just had episode of vomiting and it was clear containing food particles Review of Systems All pertinent negative and positives are noted in HPI. ??All other systems were reviewed and are negative Objective Measurements?? Height: 167 cm (08/18/23) Weight: 100.2 kg (08/18/23) Dry Weight: 100.2 kg (08/18/23) Body Mass Index:??35.93 kg/m2??Critical (08/18/23) ? Vital Signs?? Temperature: 97.9 DegF (08/18/23 19:56:00) Temperature Route: Oral (08/18/23 19:56:00) Pulse Rate: 72 bpm (08/18/23 19:56:00) Respiratory Rate: 18 br/min (08/18/23 19:56:00) Systolic Blood Pressure: 119 mm Hg (08/18/23 19:56:00) Diastolic Blood Pressure: 62 mm Hg (08/18/23 19:56:00) Blood pressure sites: Arm, left (08/18/23 19:56:00) Mean Arterial Pressure: 81 mm Hg (08/18/23 19:56:00) Pulse Pressure: 57 mm Hg (08/18/23 19:56:00) Oxygen Saturation: 94 % (08/18/23 19:56:00) Mode of Delivery (Oxygen): Room air (08/18/23 19:56:00) Early Warning Score: 4 (08/18/23 20:07:26) ? Physical Exam Constitutional: Alert, in no acute distress. Head: Normocephalic. ?? Eyes: Pupils are equal, round and reactive to light. Extraocular muscles intact. No pallor or scleral icterus ?? Ear, Nose and Throat: mucous membranes moist. Ears and nose - no obvious deformities. Trachea midline. ?? Neck: Supple, Full range of motion.No JVD or bruits. Respiratory:??Clear to auscultation. No wheezing or rhonchi.??No use of accessory muscles. No tactile fremitus.?? Cardiovascular:??PMI not visible. S1 S2 regular. No murmurs, rubs or gallops. Gastrointestinal:??Abdomen soft, tenderness in epigastric area??non-distended. Normal bowel sounds.No pulsatile mass. No hepatosplenomegaly. Genitourinary:??No costovertebral angle tenderness. Extremities: No lower extremity pitting edema. No cyanosis or clubbing. Neurologic:??AAOx3, Cranial nerves II-XII grossly intact. Speech normal, no facial droop. No focal neurological deficits. Moves all extremities spontaneously. Sensation intact bilaterally.??Flexor plantar response Skin:??No rash.?? Musculoskeletal:??No gross deformities on inspection. Normal range of motion in hips, knees, ankles. ??.??Muscle strength within normal limits Heme/Lymphatics:??Palpation of neck reveals no swelling or tenderness of neck nodes.?? Psychiatric: Normal mood and affect. Assessment/Plan Diagnoses 1. ??Epigastric pain ??(R10.13) 2. ??Intractable vomiting with nausea ??(R11.2) 3. ??H/O kidney transplant ??(Z94.0) 4. ??Stage 3b chronic kidney disease (CKD) ??(N18.32) 5. ??Non-insulin dependent type 2 diabetes mellitus ??(E11.9) 6. ??HTN (hypertension) ??(I10) ?? Assessment:??The patient is a 47 years old female who is admitted epigastric pain and intractable vomiting ?? Epigastric pain (R10.13):??Etiology: Likely gastritis versus peptic disease Patient reported that she has history of GERD and for the last 1 day, she has been having burning epigastric pain along with intractable??nausea and vomiting??that is nonbloody, nonbilious in nature Patient reports that she had EGD done about 6-month ago at [facility] and her dose of metoprolol was increased to 40 mg On physical exam, epigastric tenderness CT abdomen was done that did not show any evidence acute abnormality In ER, there was concern for coffee-ground emesis but patient denied any dark- colored vomitus??or any blood in the vomiting Will increase Protonix to 40 mg twice a day, continue Pepcid 20-mg twice a day,??clear liquid diet Will advance diet as tolerated If patient's symptoms are not controlled with symptomatic management will??consult GI inpatient ?? Intractable vomiting with nausea (R11.2):??Etiology and management as above ?? H/O kidney transplant (Z94.0):??Currently stable Creatinine 1.5 that is better than patient last patient of 1.8 Resume home medicine tacrolimus, mycophenolate, prednisone Patient follows up with kidney transplant at [facility] ?? Stage 3b chronic kidney disease (CKD) (N18.32):??Management as above ?? Non-insulin dependent type 2 diabetes mellitus (E11.9):??Patient is on Ozempic at home weekly While inpatient, started on??sliding scale insulin with hypoglycemic measures ?? HTN (hypertension) (I10):??Currently holding home medicine Norvasc as??blood pressure is on the soft side ?? VTE Prophylaxis:??SCDs ?VTE Prophylaxis Assessment:??VTE Prophylaxis Ordered ?? Discharge Planning:??PENDING CLINICAL COURSE ?? Ongoing Medical Necessity:??EPIGASTRIC PAIN, VOMITING ?? Code Status:??FULL CODE ?Order Code Status:??Code Status Ordered ? Date of service: August 18, 2023 Histories Allergies Allergies ?(Active and Proposed Allergies Only) shellfish? (Severity: Unknown severity, Onset: Unknown) ?Reactions: swelling, unknown sulfa drugs? (Severity: Unknown severity, Onset: Unknown) ?Reactions: Rash ?Comments: Tolerates bactrim as outpt lisinopril? (Severity: Unknown severity, Onset: Unknown) ?Reactions: lip/facial swelling Ultram? (Severity: Unknown severity, Onset: Unknown) ?Reactions: Itching Motrin? (Severity: Unknown severity, Onset: Unknown) ?Reactions: can't take d/t kidneys Vicodin? (Severity: Unknown severity, Onset: Unknown) ?Reactions: itching ? Past Medical History/Problem List Active Problems(12) Atypical pneumonia CHRONIC DIASTOLIC HEART FAILURE Chronic kidney disease, Stage V Dyspnea Focal segmental glomerulosclerosis Hidradenitis suppurativa HYPERTENSION IRON DEFICIENCY ANEMIA, UNSPECIFIED MRSA Obese class II UNSPECIFIED DISORDER OF KIDNEY AND URETER URI (upper respiratory infection) ? Past Surgical History Esophagogastroduodenoscopy: 11/08/17 Colonoscopy: 11/08/17 ? Social History Alcohol Details:??Use: Never. Employment/School Details:??Status: Disabled. Exercise Details:??Self assessment: Fair condition. Home/Environment Details:??Living situation: Home/Independent. Nutrition/Health Details:??Diet: Regular. Sexual Details:??Sexually involved in last 6 months: Yes. Substance Abuse Details:??Use: Never. Details:??Use: Never. Tobacco Details:??Current every day smoker, Tobacco user in household: No. ??Type: Cigarettes. ??Tobacco use times per day: appx 1 cigarette every other day. ? Family History Mother??(): AIDS Father??(): AIDS ? Medications Home Medications Albuterol (ProAir HFA 90 mcg/inh inhalation aerosol)?1?puff(s)?Inhalation?4 times a day?as needed?as needed for wheezing Amlodipine (amLODIPine 10 mg oral tablet)?1?tab(s)?10?Milligram?By Mouth?Daily Docusate (docusate sodium 100 mg oral capsule)?100?Milligram?1?capsule?By Mouth?2times a day?as needed?for constipation Ergocalciferol (Vitamin D 54078 iu oral capsule)?50,000?International Unit?1?capsule?By Mouth?Daily?on dialysis days Famotidine (famotidine 20 mg oral tablet)?20?Milligram?1?tablet?By Mouth?2 times a day Mycophenolate Mofetil (CellCept 500 mg oral tablet)?1?tab(s)?500?Milligram?By Mouth?2 times a day Pantoprazole (Protonix 40 mg oral delayed release tablet)?1?tab(s)?40?Milligram?By Mouth?Daily PredniSONE (predniSONE 2.5 mg oral tablet)?1?tab(s)?2.5?Milligram?By Mouth?Daily semaglutide (Ozempic 8 mg/3 mL (2 mg dose) subcutaneous solution)?2?Milligram?SubcutaneousInjection?Every week?in the abdomen, thigh, or upper arm Senna (Senexon 8.6 mg oral tablet)?2?tab(s)?17.2?Milligram?By Mouth?2 times a day?as needed?for constipation Tacrolimus (Prograf 5 mg oral capsule)?2?capsule?10?Milligram?By Mouth?Every 12 hours Tacrolimus (Prograf 1 mg oral capsule)?0.05?Milligrams/Kilogram?By Mouth?2 times a day ? Results Recent Labs BLOOD BANK Blood Type O Negative ()?? 08/18/2023 15:38 Antibody Screen Negative ()?? 08/18/2023 15:38 ?? BLOOD COUNT & DIFF WBC 4.9 k/mm3 ()?? 08/18/2023 13:21 RBC 4.58 m/mm3 ()?? 08/18/2023 13:21 Hgb 12.4 Gm/dL ()?? 08/18/2023 13:21 Hct 40.2 % ()?? 08/18/2023 13:21 MCV 87.8 femtoliters ()?? 08/18/2023 13:21 MCH 27.1 pg ()?? 08/18/2023 13:21 MCHC 30.8 g/dL (Low)?? 08/18/2023 13:21 Platelet Count 262 k/mm3 ()?? 08/18/2023 13:21 RDW-SD 45.9 femtoliters ()?? 08/18/2023 13:21 MPV 10.4 femtoliters ()?? 08/18/2023 13:21 Nucleated RBC (Automated) 0.0 #/100 WBC'S ()?? 08/18/2023 13:21 Abs. NRBC 0.0 k/mm3 ()?? 08/18/2023 13:21 Abs. Neut 4.0 k/mm3 ()?? 08/18/2023 13:21 Abs. Lymph 0.3 k/mm3 (Low)?? 08/18/2023 13:21 Abs. [place] 0.5 k/mm3 ()?? 08/18/2023 13:21 Abs. Eo 0.1 k/mm3 ()?? 08/18/2023 13:21 Abs. Baso 0.0 k/mm3 ()?? 08/18/2023 13:21 Neut % 80.6 % (High)?? 08/18/2023 13:21 Lymph % 6.5 % (Low)?? 08/18/2023 13:21 [place] % 9.7 % ()?? 08/18/2023 13:21 Eos % 2.0 % ()?? 08/18/2023 13:21 Baso % 0.4 % ()?? 08/18/2023 13:21 Imm Gran 0.8 % ()?? 08/18/2023 13:21 Abs. Imm Gran 0.0 k/mm3 ()?? 08/18/2023 13:21 ?? CARDIAC High Sensitivity Troponin (HSTnT) 10 ng/L ()?? 08/18/2023 15:49 ?? CHEM GENERAL Sodium 139 mmol/L ()?? 08/18/2023 13:21 Potassium 4.0 mmol/L ()?? 08/18/2023 13:21 Chloride 109 mmol/L (High)?? 08/18/2023 13:21 Bicarbonate Level 17 mmol/L (Low)?? 08/18/2023 13:21 Anion Gap 13 ()?? 08/18/2023 13:21 Glucose Level 100 mg/dL (High)?? 08/18/2023 13:21 BUN 25 mg/dL (High)?? 08/18/2023 13:21 Creatinine-Blood 1.5 mg/dL (High)?? 08/18/2023 13:21 Estimated GFR Creatinine 45 ML/MIN/1.73 M2 ()?? 08/18/2023 13:21 Alkaline Phosphatase 90 units/L ()?? 08/18/2023 13:21 Lipase 26 units/L ()?? 08/18/2023 13:21 AST (SGOT) 24 units/L ()?? 08/18/2023 13:21 ALT (SGPT) 25 units/L ()?? 08/18/2023 13:21 Bilirubin, Total 0.5 mg/dL ()?? 08/18/2023 13:21 ?? UA/URINALYSIS Appear/Color, Urine YELLOW ()?? 08/18/2023 17:34 Specific [place], Urine 1.025 ()?? 08/18/2023 17:34 pH, Urine 6.0 ()?? 08/18/2023 17:34 Albumin, Urine 1+ (Abnormal)?? 08/18/2023 17:34 Glucose, Urine NEGATIVE ()?? 08/18/2023 17:34 Ketones, Urine NEGATIVE ()?? 08/18/2023 17:34 Bilirubin, Urine NEGATIVE ()?? 08/18/2023 17:34 Hemoglobin, Urine NEGATIVE ()?? 08/18/2023 17:34 Nitrite, Urine NEGATIVE ()?? 08/18/2023 17:34 Leukocyte, Urine 1+ (Abnormal)?? 08/18/2023 17:34 Urobilinogen NORMAL mg/dL ()?? 08/18/2023 17:34 WBC's, Urine 29 /HPF (High)?? 08/18/2023 17:34 RBC's, Urine NONE SEEN /HPF ()?? 08/18/2023 17:34 Squamous Epith 1 /HPF ()?? 08/18/2023 17:34 Hold Urine Culture Testing available 48 hours from time of collection. ()?? 08/18/2023 17:34 ?? URINE OTHER Est Creatinine Clearance 43.44 mL/min ()?? 08/18/2023 20:07 ? Coagulation Profile?? No qualifying data available. ?? EKG study * Event Display: EKG Authored Date: * Event Display: ECG 12-Lead Authored Date: Please click on pdf link to open report * Event Display: ECG 12-Lead Authored Date: Ventricular Rate: 80 BPM Atrial Rate: 80 BPM P-R Interval: 144 ms QRS Duration: 80 ms Q-T Interval: 396 ms QTC Calculation(Bazett): 456 ms P Marshall: 59 degrees R Marshall: -19 degrees T Marshall: 53 degrees Normal sinus rhythm Possible Left atrial enlargement Borderline ECG When compared with ECG of 09-JUL-2023 16:45, No significant change was found Confirmed by FRANCIA RAMOS MD ([id number]) on 08/18/2023 4:22:15 PM [place] * Jaimee Kahn RN: PERFORM, SIGN, VERIFY Event Display: [facility] Authored Date: Patient: RACHEAL LAMA Age: 47 years Sex: Female : 1975 Associated Diagnoses: None Author: Jaimee Kahn RN Findings Nursing Data Psychosocial : Psychosocial Data. 08/23/2023 10:00 EDT Patient Support Offered Other: behavioral medicine nurse Patient Response To Support Other: 1st attempt refused; 2nd attempt fair to moderate Affect/Behavior Agitated, Angry/hostile, Stressed . Narrative/Incidental I met with Racheal briefly this morning at the request of RN d/t reports of agitation. On approach, Racheal is upset r/t feeling rushed to be discharged. She refused to sign any paperwork stating I'm not signing anything until I take a shower. I'm not leaving until I do that, and then she asked me to leave. She met with various staff and I was asked to see her again. I offered validation and assisted her in getting hygiene supplies; she then showered. She refused to sign her discharge paperwork but then left the unit without further issue and brought to her car via patient transport. . * Jaimee Ramirez RN: VERIFY, SIGN, MODIFY, PERFORM, SIGN, MODIFY, SIGN Event Display: Progress Note Hospital Authored Date: Patient: RACHEAL LAMA Age: 47 years Sex: Female : 1975 Associated Diagnoses: None Author: Jaimee Ramirez RN Findings Problem Related to Alteration in Comfort : Alteration in Comfort/new 08/23/2023 10:00 EDT Alteration in Comfort Related to Disease process Goals & Outcomes: Comfort Pt will report acceptable level of comfort & pain control, Pt will state importance of adhering to pain strategy regime, Pt will demonstrate necessary skills to manage pain Interventions Implemented: Comfort Assess pain using appropriate pain scale/tools, Assess aggravating factors & prevent them accordingly, Assess alleviating factors & promote them accordingly BH Goals/Interventions, Comfort Yes Comfort, Problem Start 08/23/2023 10:45 Reviewed plan with, Comfort Patient Patient Progression, Comfort Plan Initiation Comfort, Problem Ongoing Yes . * Jaimee Ramirez RN: PERFORM Event Display: Progress Note Hospital Authored Date: patient is alert & oriented to person, place, time & event. patient denies chest pain &SOB at this time. patient denies discomfort or pain at this time. vital sings within normal limits.patient is independent out of bed. patient took shower before discharge. contact precautions maintained throughout shift. patient tolerating regular diet well. safety measures maintained throughout sh ift. patient skin is clean, dry & intact. patient refused to sign discharge & education paperwork. patient was upset with the care she was receiving throughout her stay. patient relations & [employer] [facility] came to bedside to discuss patients' needs at this time. bed alarm on, bed in lowest position & bed wheels locked. non-skid socks on patients feet at this time. hourly rounds maintained. patient lay comfortable in bed with call ruiz & personal belongings' in reach. patient needs met at this time. * Jaimee Ramirez RN: PERFORM Event Display: Progress Note Hospital Authored Date: patient left [facility] safely via wheeled chair to [address] she was driving her car home. IV access discontinued. discharge paperwork & education given reviewed with patient at this time. patient refused to sign paperwork MD aware & notified. patient left with all valuables' & belongings'. pt needs met at this time. * Saniya Hilton RN: MODIFY, SIGN, VERIFY, PERFORM Event Display: Progress Note Hospital Authored Date: Patient: RACHEAL LAMA Age: 47 years Sex: Female : 1975 Associated Diagnoses: None Author: Saniya Hilton RN Findings Problem Related to Alteration in Gastrointestinal : Alteration in Gastrointestinal Func/new 08/23/2023 2:00 EDT Alteration in GI status Related to Diarrhea, Other: Abdominal pain Goals & Outcomes, Gastrointestinal Establish a regular pattern of elimination for pt, Nutritional intake is adequate for metabolic needs, Pt will achieve normal/improved fluid balance, Pt will have a bowel movement prior to discharge, Pt will maintain adequate GI function appropriate for pt, Ptwill maintain normal elimination patterns Interventions, Gastrointestinal Assess/monitor abdomen for distention, tenderness, Assess/monitor abdominal girth & bowel function, Assess/monitor bowel pattern, bowel sounds, flatus, Assess/monitor number of bowel movements, Assess/monitor color, quantity, quality, consistency of stoo, Assess/monitor pt for nausea, vomiting, Assess/monitor effects of re-hydration, Assess/monitor intake &output, Assess if pt tolerating diet, Teach Pt/caregiver on bowel elimination interventions, Teach/encourage deep breath & cough exercises Goals/Interventions, Gastrointestinal Yes Gastrointestinal, Problem Start 08/22/2023 23:28 Reviewed plan with, Gastrointestinal Patient Patient Progression, Gastrointestinal Pt progressing according to plan . Evaluation Patient is alert and oriented x4, able to make need know, patient C/O abdomen burning the Natasha AMAYA notified, the provider orderd Sodium bicabonate given with good effects, IV patent with NaCl at 50ml/hr, lungs clear to auscultation, patient C/O of Nausea Zofran given with good results, patient is on contact percation for noroVirus, patient is on room air, continent of both bowel and bladder, independent in the room patient refused 2100 POC, patient medicated per JUN, patient C/O 11/26 pain Dilaudid given with good effects, Patient came out of her room to start argument with the unit OA, patient was safely redirected to her room, bed in low position locked, personal itmes and call ruiz within reach, hourly rounds done. . Consult note * Alejandra AMAYA, Elia: PERFORM Alysia AMAYA, Jamie Chan: MODIFY Event Display: Consultation Note Authored Date: Patient: ??RACHEAL LAMA ? Age:??47 Years?Sex:??Female?:??1975?? Referrring Provider Not on Staff, Referring MD Charleen Pablo Chief Complaint GERD with nausea, vomiting.abdo pain Reason for Consultation GERD with nausea, vomiting. History of Present Illness ?? Patient is a 47-year-old lady with a history of ESRD??secondary to hypertension??s/p kidney transplant 2020, CKD stage III, HTN??presented with abdominal pain.?She is having heartburn symptoms throughout the day??and then developed epigastric discomfort which was sudden onset burning sensation??r adiating??into the chest.?? Symptoms were partially relieved by pantoprazole??and associated with multiple episodes of emesis.?? No blood reported. She reports a??EGD??around 6 months ago at [facility] however she is unclear??if is??actually 6months. Labs remarkable for WBC 4.9, Hb 12.4, PLT 260, NA 139, K4.0, 1.5, BUN 25. She underwent CT scan of the abdomen pelvis with IV contrast. No definite acute findings seen with normal stomach and colon, the small bowel is normal in caliberwith the nonspecific finding of fluid within several small bowel loops.?? Right lower quadrant renal transplant has mild inflammatory changes surrounding the transplant of uncertain significance. ?? Patient denies any cough coryza, sore throat, fevers or other prodrome. ??No unwell contacts. ??No takeouts . ??She is felt otherwise well. ??Is comfortable at rest. Reports being treated with Mounjaro for weight loss for a long time??and then was switched to Ozempic a few weeks ago. ??Since switching to Ozempic she is felt??continuously nauseated. ??Week she didnot take it because she could no longer tolerate the medication. ??Is felt that her abdomen was distended, nauseated and??has had loose stools. She reports occasional dysuria and is being treated for??fungal infections in the urine, however atthe??use of antifungals limited by the use of??mycophenolate and tacrolimus and therefore cannot use azoles. Last EGD and colonoscopy on our system from October 2017 iron deficiency anemia and concerns for GI bleeding.?? Both were normal. Physical Exam Vitals & Measurements T:??97.7?F?? TMIN:??97.7?F?? TMAX:??98.8?F?? HR:??65??(Peripheral)?? RR:??18?? BP:??109/59?? SpO2:??98%?? WT:??100.2??kg?? General:??Well appearing, looks comfortable at rest HEENT:??CALEB, Moist mucus membranes, oropharynx benign, no palpable?? Respiratory:??normal work of breathing, equal air entry bilaterally, breath sounds vesicular. No wheezes, rhonchi or crepitations Cardiovascular:??Normal rate, regular rhythm, no murmurs rubs of gallops on auscultation GI/Abdomen:??Normal active bowel sounds, soft, non-tender, non-distended. no palpable masses or organomegaly. Extremities:??Moving extremities,. No peripheral edema, lower limbs are warm and well perfused, ??DP and PT pulses palpable bilaterally. Skin:??No jaundice, no ecchymoses Neurologic:??Alert & Oriented, no obvious focal neurological deficit Psychiatric:??Mood and affect appropriate Assessment/Plan Patient is a 47-year-old lady with a history of ESRD secondary to hypertension, s/p??kidney transplant 2020, CKD,??HTN.?? Will switch from Mounjaro to Ozempic a few weeks ago and has had continued nausea since then. ??Over the last??2 days her??heartburn symptoms??have been worse and??she experienced worsening nausea with vomiting.?? Her abdomen is felt distended??since she started the Ozempic.?? He has had loose stools over the last couple of days. ??No prodromal symptoms, no unwell contacts,??no recent antibiotic courses,??and no significant abnormalities found on imaging. Her last endoscopies on our system were from 2018??upper and lower were both normal. ??She reports??a more recent??endoscopy for the heartburn symptoms at [facility] around 6 months ago. ?? - At this time??the??source of her GI symptoms??are suspected to be from the use of Ozempic which??she has not taken this week due to the experienced side effects. -??Please obtain the??endoscopy report from [facility]. - Continue with PPI for GERD - if she has continued loose stools, ??rule out infectious??causes?No??other GI workup??recommended at this??juncture.? This note was typed using Tendril dictation software. Occasionally, typing errors may occur. Please contact me on??[place] if anything requires further clarification. Patient discussed with attending physician, ?? Elia Roberts MD Gastroenterology Fellow ??PGY 4? Attending Attestation:??I have seen and evaluated this patient. I have discussed the case and its management with the fellow and agree with the findings and plan as documented in the fellow's note. Symptoms seem to be in line with use of Ozempic, which can cause abdominal pain, nausea, emesis, and loose stools. Her exam is overall benign - abdomen is obese, but soft, non- distended, and easily compressible. No significant TTP appreciated on my exam. Imaging w/ CT A/P (though non-contrast) without concerning findings. Additionally, reportedly had recent EGD - but timeline of this is unclear.Would obtain records for our review. For now, does not warrant repeat EGD. ?? Jamie Hatfield MD [facility] Gastroenterology ?? Problem List/Past Medical History Ongoing Atypical pneumonia CHRONIC DIASTOLIC HEART FAILURE Chronic kidney disease, Stage V Dyspnea Focal segmental glomerulosclerosis Hidradenitis suppurativa HYPERTENSION IRON DEFICIENCY ANEMIA, UNSPECIFIED MRSA Obese class II UNSPECIFIED DISORDER OF KIDNEY AND URETER URI (upper respiratory infection) Procedure/Surgical History ???Colonoscopy (11/08/2017)???Esophagogastroduodenoscopy (11/08/2017)???Fistulagram / Fistulaplasty(Right, Arm) (08/12/2015) Medications Inpatient Acetaminophen Tablet, 650 mg, By Mouth, Every 4 hours, PRN amLODIPine 10 mg oral tablet, 10 mg, By Mouth, Daily Benadryl Inj, 25 mg= 0.5 mL, IV Push, 3 times a day, PRN Dextrose 50% Inj Syringe (25Gm), 12.5 Gm, IV Push Slowly, Every 20 minutes, PRN Dilaudid Inj, 1 mg= 1 mL, IV Push Slowly, Every 6 hours, PRN Docusate Sodium Capsule, 100 mg= 1 capsule, By Mouth, 2 times a day, PRN Glucose Gel, 15 Gm, By Mouth, Every 20 minutes, PRN Insulin LISPRO Scale, 2-10 units, Subcutaneous Injection, 3 times a day before meals Melatonin Tablet, 3 mg, By Mouth, Daily at bedtime, PRN MiraLax Powder, 17 Gm= 1 pack/packet, By Mouth, Daily, PRN mycophenolate mofetil 250 mg oral capsule, 500 mg, By Mouth, 2 times a day NaCL 0.9% Flush, 3 mL, IV Push, Every 8 hours NaCL 0.9% Flush, 3 mL, IV Push, Every 8 hours, PRN Pepcid Inj, 20 mg= 2 mL, IV Push Slowly, Every 12 hours predniSONE 5 mg oral tablet, 2.5 mg, By Mouth, Daily Prograf 5 mg oral capsule, 10 mg, By Mouth, 2 times a day Protonix Inj, 40 mg, IV Push Slowly, Every 12 hours Robitussin DM Liquid, 10 mL, By Mouth, Every 4 hours, PRN Senna Tablet, 8.6 mg= 1 tablet, By Mouth, 2 times a day, PRN Simethicone Tablet, 80 mg, Chew, 3 times a day, PRN tacrolimus 1 mg oral capsule, 1 mg, By Mouth, 2 times a day Zofran Inj, 4 mg, IV Push, Every 6 hours, PRN Home amLODIPine 10 mg oral tablet, 10 mg= 1 tablet, By Mouth, Daily CellCept 500 mg oral tablet, 500 mg= 1 tablet, By Mouth, 2 times a day docusate sodium 100 mg oral capsule, 100 mg= 1 capsule, By Mouth, 2 times a day, PRN famotidine 20 mg oral tablet, 20 mg= 1 tablet, By Mouth, 2 times a day Ozempic 8 mg/3 mL (2 mg dose) subcutaneous solution, 2 mg, Subcutaneous Injection, Every week predniSONE 2.5 mg oral tablet, 2.5 mg= 1 tablet, By Mouth, Daily ProAir HFA 90 mcg/inh inhalation aerosol, 1 puffs, Inhalation, 4 times a day, PRN Prograf 1 mg oral capsule, 0.05 mg/kg, By Mouth, 2 times a day Prograf 5 mg oral capsule, 10 mg= 2 capsule, By Mouth, Every 12 hours Protonix 40 mg oral delayed release tablet, 40 mg= 1 tablet, By Mouth, Daily, 11 refills Senexon 8.6 mg oral tablet, 17.2 mg= 2 tablet, By Mouth, 2 times a day, PRN Vitamin D 98150 iu oral capsule, 64423 International_Units= 1 capsule, By Mouth, Daily Allergies Motrin??(can't take d/t kidneys) Pork Ultram??(Itching) Vicodin??(itching) lisinopril??(lip/facial swelling) shellfish??(swelling) sulfa drugs??(Rash) Social History Alcohol Use: Never. Employment/School Status: Disabled. Exercise Self assessment: Fair condition. Home/Environment Living situation: Home/Independent. Nutrition/Health Diet: Regular. Sexual Sexually involved in last 6 months: Yes. Substance Abuse Use: Never. Tobacco Current every day smoker, Tobacco user in household: No. Type: Cigarettes. Tobacco use times per day: appx 1 cigarette every other day. Family History AIDS: Mother and Father. Note * Jaimee Ramirez RN: PERFORM Event Display: Discharge/Transfer Note Hospital Authored Date: [id number] Nursing Discharge Note Entered On: 08/23/2023 12:26 EDT Performed On: 08/23/2023 11:07 EDT by Jaimee Ramirez RN Nursing Discharge Note 2 Discharge Time : 08/23/2023 11:07 EDT Discharge Level of Care at Discharge : Home/[facility] Patient Left Unit Via : Wheelchair Patient Accompanied Off Unit with : Responsible adult DC Instructions Provided & Signed by Pt : Yes Patient Understands D/C Instructions : Yes Patient Instructions Discharge Signed : No Instructions for Discharge Comments : patient refusaed to sign discharge paperwork MD aware & notifed. Did Pt have Specialty Bed or Wound Vac : No Jaimee Ramirez RN - 08/23/2023 12:24 EDT * aMrtha AMAYA, Quinn Irizarry: PERFORM, MODIFY, MODIFY Event Display: Discharge/Transfer Note Hospital Authored Date: [id number] Patient: ??RACHEAL LAMA ? Age:??47 Years?Sex:??Female?:??1975?? Patient Information Discharge Location: S1 Primary Care Physician: Alexx Walker Admit Date/Time: 08/20/23 09:28 Discharge Disposition Discharge Disposition: Home: No Services Discharge Diagnosis Epigastric pain (R10.13) Intractable vomiting with nausea (R11.2) H/O kidney transplant (Z94.0) Stage 3b chronic kidney disease (CKD) (N18.32) Non-insulin dependent type 2 diabetes mellitus (E11.9) HTN (hypertension) (I10) Acute diarrhea (R19.7) _ Discharge Medications Albuterol (ProAir HFA 90 mcg/inh inhalation aerosol)?1?puff(s)?Inhalation?4 times a day?as needed?as needed for wheezing Amlodipine (amLODIPine 10 mg oral tablet)?1?tab(s)?10?Milligram?By Mouth?Daily Docusate (docusate sodium 100 mg oral capsule)?100?Milligram?1?capsule?By Mouth?2times a day?as needed?for constipation Ergocalciferol (Vitamin D 84467 iu oral capsule)?50,000?International Unit?1?capsule?By Mouth?Daily?on dialysis days Famotidine (famotidine 20 mg oral tablet)?20?Milligram?1?tablet?By Mouth?2 times a day Mycophenolate Mofetil (CellCept 500 mg oral tablet)?1?tab(s)?500?Milligram?By Mouth?2 times a day Ondansetron (ondansetron 4 mg oral tablet)?1?tab(s)?4?Milligram?By Mouth?Every 12hours?as needed?Vomiting?for 3?Days Pantoprazole (Protonix 40 mg oral delayed release tablet)?1?tab(s)?40?Milligram?By Mouth?Daily PredniSONE (predniSONE 2.5 mg oral tablet)?1?tab(s)?2.5?Milligram?By Mouth?Daily semaglutide (Ozempic 8 mg/3 mL (2 mg dose) subcutaneous solution)?2?Milligram?SubcutaneousInjection?Every week?in the abdomen, thigh, or upper arm Senna (Senexon 8.6 mg oral tablet)?2?tab(s)?17.2?Milligram?By Mouth?2 times a day?as needed?for constipation Tacrolimus (Prograf 5 mg oral capsule)?2?capsule?10?Milligram?By Mouth?Every 12 hours Tacrolimus (Prograf 1 mg oral capsule)?0.05?Milligrams/Kilogram?By Mouth?2 times a day ? Inpatient Medications Medications (22) Active SCHEDULED: (9) Amlodipine 10 mg Tablet (amLODIPine 10 mg oral tablet) ??10 mg, By Mouth, Daily Famotidine 10 mg/mL Inj (Pepcid Inj) ??20 mg 2 mL, IV Push Slowly, Every 12 hours Insulin Lispro 100 units/mL Inj (Insulin LISPRO Scale) ??2-10 units, Subcutaneous Injection, 3 times a day before meals Mycophenolate 250 mg Capsule (mycophenolate mofetil 250 mg oral capsule) ??500 mg, By Mouth, 2 times a day NaCl 0.9% Flush 3ml (NaCL 0.9% Flush) ??3 mL, IV Push, Every 8 hours Pantoprazole 40 mg Inj (Protonix Inj) ??40 mg, IV Push Slowly, Every 12 hours PredniSONE 1 mg Tablet (predniSONE 5 mg oral tablet) ??2.5 mg, By Mouth, Daily Tacrolimus 1 mg Capsule (tacrolimus 1 mg oral capsule) ??1 mg, By Mouth, 2 times a day Tacrolimus 5 mg Capsule (Prograf 5 mg oral capsule) ??10 mg, By Mouth, 2 times a day CONTINUOUS: (1) NaCL 0.9% (1000 mL) Cont IV 1,000 mL (0.9% NaCL 1,000 mL) ??1,000 mL, IV Infusion, 50 mL/hr PRN: (12) Acetaminophen 325 mg Tablet (Acetaminophen Tablet) ??650 mg, By Mouth, Every 4 hours Dextromethorphan-Guaifenesin 20 mg-200 mg/10 mL Liqu UD (Robitussin DM Liquid) ??10 mL, By Mouth, Every 4 hours Dextrose Inj Syringe (Dextrose 50% Inj Syringe (25Gm)) ??12.5 Gm, IV Push Slowly, Every 20 minutes diphenhydrAMINE 50 mg/mL Inj (Benadryl Inj) ??25 mg 0.5 mL, IV Push, 3 times a day Docusate Sodium 100 mg Capsule (Docusate Sodium Capsule) ??100 mg 1 capsule, By Mouth, 2 times a day Glucose 40% Gel (15 Gm) (Glucose Gel) ??15 Gm, By Mouth, Every 20 minutes HYDROmorphone 1 mg/mL Inj Syringe (Dilaudid Inj) ??1 mg 1 mL, IV Push Slowly, Every 6 hours Melatonin 3 mg Tablet (Melatonin Tablet) ??3 mg, By Mouth, Daily at bedtime NaCl 0.9% Flush 3ml (NaCL 0.9% Flush) ??3 mL, IV Push, Every 8 hours Ondansetron 2mg/mL Inj (2mL Vial) (Zofran Inj) ??4 mg, IV Push, Every 6 hours Senna Tablet ??8.6 mg 1 tablet, By Mouth, 2 times a day Simethicone 80 mg Chewable Tablet (Simethicone Tablet) ??80 mg, Chew, 3 times a day ? Medications Started ??Zofran as needed Allergies Allergies ?(Active and Proposed Allergies Only) Pork? (Severity: Unknown severity, Onset: Unknown) shellfish? (Severity: Unknown severity, Onset: Unknown) ?Reactions: swelling, unknown sulfa drugs? (Severity: Unknown severity, Onset: Unknown) ?Reactions: Rash ?Comments: Tolerates bactrim as outpt lisinopril? (Severity: Unknown severity, Onset: Unknown) ?Reactions: lip/facial swelling Ultram? (Severity: Unknown severity, Onset: Unknown) ?Reactions: Itching Motrin? (Severity: Unknown severity, Onset: Unknown) ?Reactions: can't take d/t kidneys Vicodin? (Severity: Unknown severity, Onset: Unknown) ?Reactions: itching ? PCP Follow-Up/Heads-Up Follow-up repeat labs??including hemoglobin and renal function??in 1 to 2 weeks. Monitor metabolic acidosis and consider sodium bicarbonate tablets if she can tolerate.?? Appears to be a longstanding issue. reports intolerance to ozempic ?? Future Appointments Patient reports that she is going to talk to her transplant team on the phone today and has an appointment on wednesday Hospital Course ?? Patient is a 47-year-old female, history of ESRD, s/p renal transplant, CKD stage III, presented here with acute onset of epigastric discomfort along with multiple episodes of nonbloody, nonbilious vomiting.?? No fevers or chills reported.?? Reportedly had a EGD done about 6 months prior at [place].??. CT abdomen did not show any acute abnormality. ?? She is also on treatment with Ozempic recently and previously on Mounjaro.?? She mentions that since switching to Ozempic, she was having nausea.?? She reports that she is planning??to stop Ozempic and talk to her providers ?? Gastroenterology consulted on her. Stool studies obtained, negative for C. difficile, but positive for Mahamed virus and norovirus likelycontributing to her symptoms. ?? Overall, diarrhea appears to be subsiding as per nursing report.?? No diarrhea at least for the last 24 hours. She is also not having any vomiting as per nursing report. She complains of intermittent??abdominal burning.?? Renal function remains stable.?? Afebrile.?? She is ambulating independently.?? Overall, she appears to have reached maximal benefit of inpatient hospitalization and given her immunosuppressed status, it is better to avoid prolonged hospitalization if not necessary.?? Discussed with her. ?? During the course of hospital, she was having multiple arguments with care staff about various different reasons??and needed de-escalations on a regular basis.?? Currently, calm.?? Nursing staff did not notice any bleeding, but patient reports that she had some bleeding in stool yesterday.?? Hemoglobin was ordered, but she is refusing the lab. ?? She has a follow-up coming on Wednesday, can follow with her transplant team. ?? Viral gastroenteritis 2/2 norovirus. sapovirus with nausea, vomiting, abdominal pain, diarrhea Immunosuppressed host Overall, symptoms subsiding. Renal function stable. Follow-up with primary care physician. Continue good hand hygiene to avoid transmission to other people. Patient reported that she started work at a new place 1 to 2 days prior to coming here. She also reports having symptoms after starting Ozempic and likely contributing. Continue PPI, Pepcid, no new changes ?? History of GERD Takes pantoprazole along with Pepcid at home, continue ?? History of kidney transplant, stage III chronic kidney disease Takes tacrolimus, mycophenolate, prednisone. She is asking tacrolimus levels to be checked today to be able to follow-up these by Wednesday.?? She states that she was supposed to get these labs done, but does not want to have additional trip.??She understands that the lab results will not be available today and she has to follow-up with her transplant team to review these results. Continue prior regimen.?? Renal function remained stable ?? Type 2 diabetes mellitus Recently taking Ozempic, but reporting nausea with it. Follow-up with her providers to discuss her options.?? She was previously on Mounjaro ?? Essential hypertension Amlodipine ?? Objective Vital Signs?? Temperature: 97.6 DegF (08/23/23 07:00:00) Temperature Route: Oral (08/23/23 07:00:00) Pulse Rate: 66 bpm (08/23/23 07:00:00) Respiratory Rate: 18 br/min (08/23/23 07:00:00) Systolic Blood Pressure: 121 mm Hg (08/23/23 08:08:00) Diastolic Blood Pressure: 59 mm Hg (08/23/23 08:08:00) Blood pressure sites: Arm, right (08/23/23 07:00:00) Mean Arterial Pressure: 69 mm Hg (08/23/23 00:31:00) Pulse Pressure: 62 mm Hg (08/23/23 07:00:00) Oxygen Saturation: 100 % (08/23/23 07:00:00) Mode of Delivery (Oxygen): Room air (08/23/23 07:00:00) Early Warning Score: 2 (08/23/23 08:11:18) ? . Physical Exam Constitutional: Alert, in no acute distress. Mental Status: Oriented to person, place and time. Gastrointestinal: Abdomen soft, non-tender, non-distended. Normal bowel sounds.?? Neurologic: Nonfocal, alert and oriented x 4 Musculoskeletal: No Leg edema?? Consultants Gastroenterology Pending Results Add On Lab Order ordered on 08/18/2023 Basic Metabolic Panel ordered on 08/19/2023 CBC ordered on 08/19/2023 Hgb + Hct ordered on 08/23/2023 Magnesium Level ordered on 08/19/2023 Tacrolimus Level ordered on 08/23/2023 Patient Instructions During this hospitalization you were??treated for: Norovirus, Mahamed virus gastroenteritis Nausea, abdominal pain, vomiting, diarrhea. ?? You will go home with the following NEW medications: Please maintain your prior regimen.? Dilaudid as needed for severe pain Zofran as needed for nausea or vomiting ?? The following medications were CHANGED : ? The following medications were?? STOPPED: ? Activity changes: -?As tolerated. ? Who to follow up with after being discharged from the hospital: -??Please follow up at your primary??care doctor's office in 1-2 weeks. ??You can have your blood counts and renal function checked. ??Follow-up with your transplant team.?? Tacrolimus levels were collected 08/22, follow-up pending results with your transplant team.?? They can request records to be??faxed to them.?? Alternatively, you can look up these results??in the phone [facility] ^[email or web address] Results Discharge Labs BACTERIOLOGY Urine Culture Results Final report ()?? 08/18/2023 17:34 ? BLOOD BANK Blood Type O Negative ()?? 08/18/2023 15:38 Antibody Screen Negative ()?? 08/18/2023 15:38 ?? CARDIAC High Sensitivity Troponin (HSTnT) 10 ng/L ()?? 08/18/2023 15:49 ? CHEM GENERAL Sodium 139 mmol/L ()?? 08/23/2023 05:49 Potassium 4.2 mmol/L ()?? 08/23/2023 05:49 Chloride 109 mmol/L (High)?? 08/23/2023 05:49 Bicarbonate Level 17 mmol/L (Low)?? 08/23/2023 05:49 Anion Gap 13 ()?? 08/23/2023 05:49 Glucose Level 95 mg/dL ()?? 08/23/2023 05:49 Glucose, POC 94 mg/dL ()?? 08/23/2023 07:01 BUN 21 mg/dL (High)?? 08/23/2023 05:49 Creatinine-Blood 1.6 mg/dL (High)?? 08/23/2023 05:49 Estimated GFR Creatinine 40 ML/MIN/1.73 M2 ()?? 08/23/2023 05:49 Calcium 8.8 mg/dL ()?? 08/23/2023 05:49 Magnesium 1.6 mg/dL ()?? 08/21/2023 07:05 Alkaline Phosphatase 90 units/L ()?? 08/18/2023 13:21 Lipase 26 units/L ()?? 08/18/2023 13:21 AST (SGOT) 24 units/L ()?? 08/18/2023 13:21 ALT (SGPT) 25 units/L ()?? 08/18/2023 13:21 Bilirubin, Total 0.5 mg/dL ()?? 08/18/2023 13:21 ? SEROLOGY INF DISEASE C.difficile Toxin NEGATIVE ()?? 08/20/2023 08:49 ? STOOL STUDIES GI PCR, Campylobacter NEGATIVE (N)?? 08/20/2023 08:49 GI PCR, Plesiomonas shigelloides NEGATIVE (N)?? 08/20/2023 08:49 GI PCR, Salmonella NEGATIVE (N)?? 08/20/2023 08:49 GI PCR, Vibrio NEGATIVE (N)?? 08/20/2023 08:49 GI PCR, Vibrio cholerae NEGATIVE (N)?? 08/20/2023 08:49 GI PCR, Yersinia enterocolitica NEGATIVE (N)?? 08/20/2023 08:49 GI PCR, Enteroaggregative E coli NEGATIVE (N)?? 08/20/2023 08:49 GI PCR, Enteropathogenic E coli NEGATIVE (N)?? 08/20/2023 08:49 GI PCR, Enterotoxigenic E coli NEGATIVE (N)?? 08/20/2023 08:49 GI PCR, Dqkmf-[id number]-vcyzcsvnr E coli NEGATIVE (N)?? 08/20/2023 08:49 GI PCR, Shigella/Enteroinvasive E coli NEGATIVE (N)?? 08/20/2023 08:49 GI PCR, Cryptosporidium NEGATIVE (N)?? 08/20/2023 08:49 GI PCR, Cyclospora cayetanensis NEGATIVE (N)?? 08/20/2023 08:49 GI PCR, Entamoeba histolytica NEGATIVE (N)?? 08/20/2023 08:49 GI PCR, Giardia lamblia NEGATIVE (N)?? 08/20/2023 08:49 GI PCR, Adenovirus F 40/41 NEGATIVE (N)?? 08/20/2023 08:49 GI PCR, Astrovirus NEGATIVE (N)?? 08/20/2023 08:49 GI PCR, Norovirus GI/GII POSITIVE (Abnormal)?? 08/20/2023 08:49 GI PCR, Rotavirus A NEGATIVE (N)?? 08/20/2023 08:49 GI PCR, Sapovirus POSITIVE (Abnormal)?? 08/20/2023 08:49 ?? UA/URINALYSIS Appear/Color, Urine YELLOW ()?? 08/18/2023 17:34 Specific [place], Urine 1.025 ()?? 08/18/2023 17:34 pH, Urine 6.0 ()?? 08/18/2023 17:34 Albumin, Urine 1+ (Abnormal)?? 08/18/2023 17:34 Glucose, Urine NEGATIVE ()?? 08/18/2023 17:34 Ketones, Urine NEGATIVE ()?? 08/18/2023 17:34 Bilirubin, Urine NEGATIVE ()?? 08/18/2023 17:34 Hemoglobin, Urine NEGATIVE ()?? 08/18/2023 17:34 Nitrite, Urine NEGATIVE ()?? 08/18/2023 17:34 Leukocyte, Urine 1+ (Abnormal)?? 08/18/2023 17:34 Urobilinogen NORMAL mg/dL ()?? 08/18/2023 17:34 WBC's, Urine 29 /HPF (High)?? 08/18/2023 17:34 RBC's, Urine NONE SEEN /HPF ()?? 08/18/2023 17:34 Squamous Epith 1 /HPF ()?? 08/18/2023 17:34 Hold Urine Culture Testing available 48 hours from time of collection. ()?? 08/18/2023 17:34 ? URINE OTHER Est Creatinine Clearance 40.73 mL/min ()?? 08/23/2023 06:32 Urine Culture Specimen Source URINE ()?? 08/18/2023 17:34 Urine Culture Isolate 1 No growth ()?? 08/18/2023 17:34 ? 35??minutes spent on discharge * Jaimee Ramirez RN: PERFORM Event Display: Patient Education/Instruction Authored Date: [id number] Inpatient Adult Discharge Instructions. [address] [id number] Name: RACHEAL LAMA : 1975?? Visit: 08/20/2023 09:28?? Current Date: 08/23/2023 09:33 ?? Account: [id number]?? Inpatient Adult Discharge Instructions We would like to thank you for allowing us to assist you with your healthcare needs. The following includes patient education materials and information regarding your injury/illness. Our entire staffstrives to provide an excellent experience for our patients and their families. PLEASE ENSURE YOU FOLLOW-UP PER THE INSTRUCTIONS BELOW! ?? YOUR OPINION IS IMPORTANT TO US! Please complete the survey you may receive by mail or email. Your feedback will be used to make improvements to the healthcare experiences of our patients and their families. Surveys are administered by [email or web address] ?? If further treatment with your primary care physician or another doctor is recommended, it is important for you to keep the appointment. Call your primary care physician or return to the Emergency Department immediately if your condition worsens, fails to improve, or new symptoms develop. If you need to find a doctor, you can call [facility] for a referral at [phone] or toll free at [phone]. Jerry[employer] Smooth [phone] ([phone]) or log in to [email or web address].. ?? [facility], in keeping with [facility] guidance, no longer requires face masks for staff, patientsor visitors in most situations. Similiar to time spent indoors at other locations, there is the chance that you were exposed to repiratory viruses during your time with us (such as flu or COVID-19). If you develop symptoms concerning for a viral respiratory infection, please seek testing (and treatment if indicated) from your medical provider or home test kit. ?? You can view and manage your care through the patient portal or by using a health care halle of your choosing. [email or web address] is a website that allows you to securely view your medical information including your hospital discharge summary, office visit summaries, medications and follow-up visits. You can also request appointments, renew medications, and request access to your medical information using a health care halle of your choosing, or just ask a question. You can enroll at [email or web address] or register during your next office visit. You have been discharged from [facility], Patient Care Unit: S1??. If you have any questions regarding these instructions, including results of studies pending, afteryou leave, please call us and we will be happy to assist you 09/11. [facility] Your Care Team Attending Physician Martha AMAYA, Quinn Irizarry?? Consulting Providers Quinn Thomas MD?? Discharging Providers Quinn Thomas MD Reason for Your Visit GI Bleed?? Your Diagnosis Epigastric pain Intractable vomiting with nausea H/O kidney transplant Stage 3b chronic kidney disease (CKD) Non-insulin dependent type 2 diabetes mellitus HTN (hypertension) Acute diarrhea Tests Performed Below is a partial list of the tests performed during your hospitalization. You may have had other tests and procedures not included in this list. Please discuss all test results with your provider. Alk Phos ALT AST Basic Metabolic Panel BUN C. difficile Rapid Toxin Assay CBC CBC w/ Differential Creatinine Electrolytes GI Profile, Stool, PCR Glucose Level GLUCOSE POC Lipase Magnesium Level Tacrolimus Level Total Bilirubin Troponin T, High Sensitivity Type and Screen Urinalysis w/hold for Urine Culture Urine Culture Result Urine Culture, Routine CT Abdomen and Pelvis W/O Contrast XR Chest 2 Views Frontal and Lat Add On Lab Order?? Basic Metabolic Panel?? CBC?? Hgb + Hct (H + H)?? Magnesium Level?? Primary Care Provider Alexx Walker? Advance Directive Health Care Proxy on File No Patient refuses to discuss Discharge Vitals Temperature: 97.6 DegF Height: 167 cm Pulse Rate: 66 bpm Weight: 100.2 kg Respiratory Rate: 18 br/min Body Mass Index:??35.93 kg/m2??Critical Systolic Blood Pressure: 121 mm Hg Body surface area: 2.16 Diastolic Blood Pressure: 59 mm Hg ?? Oxygen Saturation: 100 % ?? Studies Pending All studies ordered during this hospital stay have been completed unless listed below. Please discuss all pending results with your provider listed above in these instructions. ?? Add On Lab Order?? Basic Metabolic Panel?? CBC?? Hgb + Hct (H + H)?? Magnesium Level?? What to do next Instructions From Your Doctor During this hospitalization you were??treated for: Norovirus, Mahamed virus gastroenteritis Nausea, abdominal pain, vomiting, diarrhea. ?? You will go home with the following NEW medications: Please maintain your prior regimen.? Zofran as needed for nausea or vomiting ?? The following medications were CHANGED : ? The following medications were?? STOPPED: ? Activity changes: -?As tolerated. ? Who to follow up with after being discharged from the hospital: -??Please follow up at your primary??care doctor's office in 1-2 weeks. ??You can have your blood counts and renal function checked. ??Follow-up with your transplant team.?? Tacrolimus levels were collected 08/22, follow-up pending results with your transplant team.?? They can request records to be??faxed to them.?? Alternatively, you can look up these results??in the phone halle ?? Orders??:Ambulate with assistance ??3 times a day ??unless otherwise specified Status: ??Full Resuscitation? 08/23/23 8:33:00 EDT?? Discharge Medications RACHEAL LAMA :1975 Visit Date:08/20/2023 Medications: Please continue your medications until treatment is completed or stopped by your provider. Medications not listed below should be discontinued. Discuss any questions related to medications with your provider. What How Much When Instructions Next Dose New Ondansetron (ondansetron 4 mg oral tablet) 1 tab(s) Oral Every 12 hours as needed for Vomiting Duration: 3 Days Pickup at [facility] 3 as needed Changed Mycophenolate Mofetil (CellCept 500 mg oral tablet) 1 tab(s) Oral Twice a day 9pm tonight Unchanged Albuterol (ProAir HFA 90 mcg/ inh inhalation aerosol) 1 puff(s) Inhalation 4 times a day as needed for as needed for wheezing as needed Unchanged Amlodipine (amLODIPine 10 mg oral tablet) 1 tab(s) Oral Daily tomorrow 08/24/2023 9am Unchanged Docusate (docusate sodium 100 mg oral capsule) 1 capsule Oral Twice a day as needed for for constipation as needed Unchanged Ergocalciferol (Vitamin D 25598 iu oral capsule) 50,000 International Unit Oral Daily on dialysis days ?? tomorrow 08/24/2023 9am Unchanged Famotidine (famotidine 20 mg oral tablet) 1 tab(s) Oral Twice a day 9pm tonight Unchanged Pantoprazole (Protonix 40 mg oral delayed release tablet) 1 tab(s) Oral Daily tomorrow 08/24/2023 9am Unchanged PredniSONE (predniSONE 2.5 mg oral tablet) 1 tab(s) Oral Daily tomorrow 08/24/2023 9am Unchanged semaglutide (Ozempic 8 mg/ 3 mL (2 mg dose) subcutaneous solution) 2 Milligram Subcutaneous Injection Every week in the abdomen, thigh, or upper arm ?? weekly Unchanged Senna (Senexon 8.6 mg oral tablet) 2 tab(s) Oral Twice a day as needed for for constipation as needed Unchanged Tacrolimus (Prograf 1 mg oral capsule) 0.05 Milligrams/Kilogram Oral Twice a day 9pm tonight Unchanged Tacrolimus (Prograf 5 mg oral capsule) 2 capsule Oral Every 12 hours 9pm tonight Pharmacy Information [facility] 3: [address], [place] [id number] [phone] Prescription Given During Visit Ondansetron (ondansetron 4 mg oral tablet) - 1 tablet = 4 mg, By Mouth, Every 12 hours, # 6 tablet,0 Refills, [facility], [address] [place] [phone]?? Laboratory Results Below is a partial list of the most recent Laboratory test results done prior to this discharge. You may have had other tests and procedures not included in this list. Please discuss all test resultswith your provider. Est Creatinine Clearance - 40.73 mL/min (08/23/2023) Alk Phos (08/18/2023) ???Alkaline Phosphatase - 90 units/L ALT (08/18/2023) ???ALT (SGPT) - 25 units/L AST (08/18/2023) ???AST (SGOT) - 24 units/L Basic Metabolic Panel (08/23/2023) ???Sodium - 139 mmol/L???Potassium - 4.2 mmol/L???Chloride - 109 mmol/L???Bicarbonate Level - 17 mmol/L???Anion Gap - 13???Glucose Level - 95 mg/dL???BUN - 21 mg/dL???Creatinine-Blood - 1.6 mg/dL???Estimated GFR Creatinine - 40 ML/MIN/1.73 M2???Calcium - 8.8 mg/dL BUN (08/18/2023) ???BUN - 25 mg/dL C. difficile Rapid Toxin Assay (08/20/2023) ???C.difficile Toxin - NEGATIVE CBC (08/21/2023) ???WBC - 6.1 k/mm3???RBC - 4.30 m/mm3???Hgb - 11.6 Gm/dL???Hct - 38.5 %???MCV - 89.5 femtoliters???MCH - 27.0 pg???MCHC - 30.1 g/dL???Platelet Count - 192 k/mm3???RDW-SD - 47.7 femtoliters???MPV - 11.4 femtoliters???Nucleated RBC (Automated) - 0.0 #/100 WBC'S???Abs. NRBC - 0.0 k/mm3 CBC w/ Differential (08/18/2023) ???WBC - 4.9 k/mm3???RBC - 4.58 m/mm3???Hgb - 12.4 Gm/dL???Hct - 40.2 %???MCV - 87.8 femtoliters???MCH - 27.1 pg???MCHC - 30.8 g/dL???Platelet Count - 262 k/mm3???RDW-SD - 45.9 femtoliters???MPV - 10.4 femtoliters???Nucleated RBC (Automated) - 0.0 #/100 WBC'S???Abs. NRBC - 0.0 k/mm3???Abs. Neut - 4.0 k/mm3???Abs. Lymph - 0.3 k/mm3???Abs. [place] - 0.5 k/mm3???Abs. Eo - 0.1 k/mm3???Abs. Baso - 0.0 k/mm3???Neut % - 80.6 %???Lymph % - 6.5 %???[place] % - 9.7 %???Eos % - 2.0 %???Baso % - 0.4 %???Imm Gran- 0.8 %???Abs. Imm Gran - 0.0 k/mm3 Creatinine (08/18/2023) ???Creatinine-Blood - 1.5 mg/dL???Estimated GFR Creatinine - 45 ML/MIN/1.73 M2 Electrolytes (08/18/2023) ???Sodium - 139 mmol/L???Potassium - 4.0 mmol/L???Chloride - 109 mmol/L???Bicarbonate Level - 17 mmol/L???Anion Gap - 13 GI Profile, Stool, PCR (08/20/2023) ???GI PCR, Campylobacter - NEGATIVE???GI PCR, Plesiomonas shigelloides - NEGATIVE???GI PCR, Salmonella - NEGATIVE???GI PCR, Vibrio - NEGATIVE???GI PCR, Vibrio cholerae - NEGATIVE???GI PCR, Yersinia enterocolitica - NEGATIVE???GI PCR, Enteroaggregative E coli - NEGATIVE???GI PCR, Enteropathogenic E coli - NEGATIVE???GI PCR, Enterotoxigenic E coli - NEGATIVE???GI PCR, Qafck-rzhik-jpadhwutl E coli -NEGATIVE???GI PCR, Shigella/Enteroinvasive E coli - NEGATIVE???GI PCR, Cryptosporidium - NEGATIVE???GI PCR, Cyclospora cayetanensis - NEGATIVE???GI PCR, Entamoeba histolytica - NEGATIVE???GI PCR, Giardia lamblia - NEGATIVE???GI PCR, Adenovirus F 40/41 - NEGATIVE???GI PCR, Astrovirus - NEGATIVE???GIPCR, Norovirus GI/GII - POSITIVE???GI PCR, Rotavirus A - NEGATIVE???GI PCR, Sapovirus - POSITIVE Glucose Level (08/18/2023) ???Glucose Level - 100 mg/dL GLUCOSE POC (08/23/2023) ???Glucose, POC - 94 mg/dL Lipase (08/18/2023) ???Lipase - 26 units/L Magnesium Level (08/21/2023) ???Magnesium - 1.6 mg/dL Tacrolimus Level (08/23/2023) ???Tacrolimus Level - 15.2 ng/mL Total Bilirubin (08/18/2023) ???Bilirubin, Total - 0.5 mg/dL Troponin T, High Sensitivity (08/18/2023) ???High Sensitivity Troponin (HSTnT) - 10 ng/L Type and Screen (08/18/2023) ???Blood Type - O Negative???Antibody Screen - Negative Urinalysis w/hold for Urine Culture (08/18/2023) ???Appear/Color, Urine - YELLOW???Specific [place], Urine - 1.025???pH, Urine - 6.0???Albumin, Urine - 1+???Glucose, Urine - NEGATIVE???Ketones, Urine - NEGATIVE???Bilirubin, Urine - NEGATIVE???Hemoglobin, Urine - NEGATIVE???Nitrite, Urine - NEGATIVE???Leukocyte, Urine - 1+???Urobilinogen - NORMAL???WBC's, Urine - 29 /HPF???RBC's, Urine - NONE SEEN???Squamous Epith - 1 /HPF???Hold Urine Culture -Testing available 48 hours from time of collection. Urine Culture Result (08/18/2023) ???Urine Culture Isolate 1 - No growth Urine Culture, Routine (08/18/2023) ???Urine Culture Results - Final report???Urine Culture Specimen Source - URINE Allergies (NKA means No Known Allergies) Motrin??(can't take d/t kidneys) Pork Ultram??(Itching) Vicodin??(itching) lisinopril??(lip/facial swelling) shellfish??(swelling) sulfa drugs??(Rash) Problems Active Problems??(12) Atypical pneumonia?? CHRONIC DIASTOLIC HEART FAILURE?? Chronic kidney disease, Stage V?? Dyspnea?? Focal segmental glomerulosclerosis?? Hidradenitis suppurativa?? HYPERTENSION?? IRON DEFICIENCY ANEMIA, UNSPECIFIED?? MRSA?? Obese class II?? UNSPECIFIED DISORDER OF KIDNEY AND URETER?? URI (upper respiratory infection)?? Education Materials Below is the list of Educational Leaflet Providered with your Discharge Instructions. [employer] Ignite Patient Education - Understanding Norovirus?? Valuables and Belongings I fully understand and agree that [facility] accepts no responsibility for all my personal property including clothing, toilet articles, radios, jewelry, dentures, hearing aids, rings, money, or any other property that is in my possession or is brought to me after admission. I understand certain valuables may be placed in a hospital safe for a short period of time. I understand that the hospital is not liable for loss or damage due to accident, fire, or other natural occurrence while said property is in the safe. I accept full responsibility for any personal property that I keep with me, and will not hold the hospital responsible in case of loss or disappearance. I acknowledge that i have been encouraged to send valuables and belongings home. ?? Date for Pt to Sign Valuables/Belongings: 08/18/23 19:34:00 ?? Other Discharge Information ? Pulmonary Rehab Status?? Pulmonary Rehab Discharge Status?? Respiratory Rate: 18 br/min ? Common Emergency Awareness Tips IS IT A STROKE? Act FAST and Check for these signs: FACE Does the face look uneven? ARM Does one arm drift down? SPEECH Does their speech sound strange? TIME Call at any sign of stroke ?? Heart Attack Signs Chest discomfort: Most heart attacks involve discomfort in the center of the chest and lasts more than a few minutes, or goes away and comes back. It can feel like uncomfortable pressure, squeezing, fullness or pain. Discomfort in upper body: Symptoms can include pain or discomfort in one or both arms, back, neck, jaw or stomach. Shortness of breath: With or without discomfort. Other signs: Breaking out in a cold sweat, nausea, or lightheaded. Remember, MINUTES DO MATTER. If you experience any of these heart attack warning signs, call to get immediate medical attention! ?? Smoking can increase your chances of developing chronic health problems and can cause harmful effects to other family members in your house. If you smoke, you are strongly encouraged to quit. Please call [facility] [email or web address] Link at [phone] or [phone] ([phone]) or log in to [email or web address] for referrals to smoking cessation programs. ?? 966 Suicide & Crisis Lifeline is available 09/11 if you or someone you know needs to find a reason to keep living. By calling 797 you'll be connected to a skilled, trained counselor at a crisis center in your area. INPATIENT DISCHARGE INSTRUCTIONS SIGNATURE DAMIEN LAMA RACHEAL Location:[facility] Registration Date and Time:08/20/2023 09:28 EDT Primary Care Physician: Alexx Walker, Attending Physician: Martha AMAYA, Quinn Irizarry, I RACHEAL LAMA, have received the above patient education materials/instructions and have verbalized understanding. If ambulance or transport services are being used I further acknowledge being givena choice of service. ?? If you need to contact me, please call me at this number: . Patient/Assistant Project Manager Name: Patient/Assistant Project Manager Signature: Relationship to Patient: Witness Name/Signature: Date: * Martha AMAYA, Quinn Irizarry: PERFORM Event Display: Patient Education Leaflets Authored Date: [id number] Understanding Norovirus ?? 77803 Understanding Norovirus Norovirus is a very contagious virus that can infect the stomach and intestines. It causes diarrheaand vomiting. Norovirus is the most common cause of illness from contaminated food in the [place] The virus spreads easily through contaminated foods and surfaces. Norovirus is not related to the influenza (flu) virus. What causes norovirus infection? You can be infected with norovirus by coming into contact with a person who has the virus. Or you can get it by touching a contaminated surface or eating contaminated food. Washing your hands well can lower your risk of getting the virus.??You can also get it by consuming food and water contaminated with the virus. Foods most likely to become tainted include: ??? Shellfish ??? Epeya-pl-vfp salads and sandwiches ??? Produce, such as celery, melons, and leafyvegetables Follow these tips to prevent infection: ??? Wash your hands for at least 20 seconds with soap and water after going to the bathroom, after changing a diaper, and before touching any food. Don't prepare food for others when sick and for 2 days after symptoms stop. ??? If someone in the house has norovirus, disinfect all surfaces that might be contaminated. Use a bleach-based spot cleaner. Wash clothes or linens right away that may be contaminated. ??? Don't eat food or drink water in areas with warnings of contamination. ?? What are the symptoms of norovirus? Some people may have no symptoms. In people who do, symptoms show up suddenly, often??within a day of being exposed. The illness lasts 1 to 3 days. Symptoms include: ??? Fever ??? Nonbloody diarrhea ??? Nausea ??? Nonbloody vomiting ??? Headache ??? Achiness ??? Stomach cramping More severe cases are often seen in infants, older adults, and people with other health problems. Symptoms may last longer and be more severe in these groups. ?? How is norovirus treated? There is no medicine to cure norovirus, but some may be used to ease symptoms. Treatment includes: ??? Rest. You may feel better faster if you get plenty of rest. ??? Fluids. Drinking lots of fluids will help you stay hydrated. Don???t drink alcohol or beverages with caffeine. They can make your symptoms worse. ??? Medicine. Ngml-ryy-ctsjybd medicines for diarrhea may ease symptoms. These should be used only by adults. Pain relievers, such as acetaminophen or ibuprofen, can help with headaches and body aches. Antibiotics are not effective in treating norovirus. ?? What are the possible complications of norovirus? Dehydration is the main concern with norovirus infection. Severe dehydration may need to be treatedin the hospital. You may need to get fluids through an IV (intravenous line) in your vein. ?? When should I call my healthcare provider? Call your healthcare provider right away if any of the following occur: ??? Fever of 100.4??F (38??C) or higher, or as directed by your healthcare provider ??? Belly (abdominal) pain that gets worse ??? Severe dizziness, especially when getting up from bed ??? Vomiting so severe that you can???t keep fluids down ?? Last Reviewed Date: 2021 ?? 3192-1618 [employer]. All rights reserved. This information is not intended as a substitute for professional medical care. Always follow your healthcare professional's instructions. ?? Patient Care team information Care Team Personnel Name: Saniya Hilton RN Position: [facility] RN Member Role: Primary Care Nurse Name: Liane Prince RN Position: [facility] OB RN Member Role: Primary Care Nurse Name: Raegan Rivero RN Position: [facility] RN Member Role: Primary Care Nurse Name: Rohini Mckee RN Position: [facility] SN RN Member Role: Primary Care Nurse Name: Rose Chase RN Position: [facility] RN Member Role: Primary Care Nurse Name: Marsha Berkowitz RN Position: [facility] RN Member Role: Primary Care Nurse Name: Rand Almazan RN Position: [facility] Rad RN Member Role: Primary Care Nurse Name: Cayla Adan NP Position: [facility] PCO Associate Professional Member Role: Primary Care Nurse Name: Key Hairston RN Position: [facility] SN RN Member Role: Primary Care Nurse Name: Betty Harrell RN Position: [facility] RN Member Role: Primary Care Nurse Name: Vero Osman NP Position: [facility] Associate Professional Member Role: Primary Care Nurse Address: Address: [address] [place] [address]- [place] Name: Felicia Donovan Position: [facility] Outreach Member Role: Lifetime Consulting Physician Name: Griselda Membreno RN Position: [facility] RN Member Role: Primary Care Nurse Name: Gisel Guzman RN Position: [facility] RN Member Role: Primary Care Nurse Name: Danna Fernández RN Position: [facility] RN Member Role: Primary Care Nurse Name: Bonnie Jorge RN Position: [facility] RN Member Role: Primary Care Nurse Name: Jada An NP Position: [facility] Outreach Member Role: Primary Care Nurse Address: Address: [address] [place] [address]- [place] Name: Yanira Schroeder RN Position: [facility] RN Member Role: Primary Care Nurse Name: Alexx Walker Position: Reference Physician Member Role: PCP Address: Address: [address] [place] [address]- [place] Name: Baylee Orellana RN Position: [facility] AMB Nurse Member Role: Primary Care Nurse Name: Kemar Urbano RN Position: [facility] Outreach Member Role: Primary Care Nurse Name: Jaimee Ramirez RN Position: [facility] RN Member Role: Primary Care Nurse Name: Aneta Dean RN Position: [facility] ED RN W/OE and Tasks Member Role: Primary Care Nurse Name: Katelyn Alberts RN Position: [facility] RN Member Role: Primary Care Nurse Name: Marya Kaye RN Position: [facility] RN Member Role: Primary Care Nurse Name: Maria Isabel Hare RN Position: [facility] RN Member Role: Primary Care Nurse Name: Maira Rushing Position: [facility] RN Member Role: Primary Care Nurse Name: Fox Ag DO Position: [facility] Renal MD Member Role: Lifetime Consulting Physician Address: Address: [address] [place], [place] [address] [place], [place] [address] Name: Maira Hodgson RN Position: [facility] SN RN Member Role: Primary Care Nurse Name: Carolyn Brown RN Position: [facility] RN Member Role: Primary Care Nurse Name: Eliot Brown RN Position: [facility] RN Member Role: Primary Care Nurse Name: Yury Mcbride Position: [facility] RN Member Role: Primary Care Nurse Name: Ilene Mcbride RN Position: [facility] RN Member Role: Primary Care Nurse Name: Bernadette Cornelius RN Position: [facility] RN Member Role: Primary Care Nurse Name: Han England III, RN Position: [facility] RN Member Role: Primary Care Nurse Name: Mery Cui RN Position: [facility] RN Member Role: Primary Care Nurse Name: Maricel Wolf RN Position: [facility] RN Member Role: Primary Care Nurse Name: Gabino Yost RN Position: [facility] RN Member Role: Primary Care Nurse Name: Faina Briceño RN Position: [facility] RN Member Role: Primary Care Nurse Name: Tawnya Galvan RN Position: [facility] RN Member Role: Primary Care Nurse Name: Ingrid Joseph RN Position: [facility] AMB Nurse Member Role: Primary Care Nurse Name: Richelle Ware RN Position: [facility] AMB Nurse Member Role: Primary Care Nurse Name: Fabian Swanson RN Position: [facility] RN Member Role: Primary Care Nurse Name: Neris Beck RN Position: [facility] RN Member Role: Primary Care Nurse Name: Marce Mcdonald RN Position: [facility] RN Member Role: Primary Care Nurse Name: Felicia Melendrez RN Position: [facility] Vice President Network Member Role: Primary Care Nurse Name: Cristina Medina RN Position: [facility] RN Member Role: Primary Care Nurse Name: Julio Waggoner RN Position: [facility] ED RN W/OE and Tasks Member Role: Primary Care Nurse Name: Natalia Chong RN Position: [facility] RN Member Role: Primary Care Nurse Name: Olga Lidia Monk RN Position: [facility] RN Member Role: Primary Care Nurse Name: Erica Culver RN Position: [facility] Onco RN Member Role: Primary Care Nurse Name: Jayna Carter RN Position: [facility] RN Member Role: Primary Care Nurse Name: nAita Robles RN Position: [facility] Vice President Network Member Role: Primary Care Nurse Name: Sandra Bennett RN Position: [facility] RN Member Role: Primary Care Nurse Name: Jose Junior MD Position: [facility] Renal MD Member Role: Lifetime Consulting Physician Address: Address: [address] [place] [address] [facility] [place] [address]- [place] Care Team Related Persons Name: YOEL SCHAEFER Name: RMAAN LAMA Address: [place] [address] Name: NONE, NONE
--- OUTSIDE RECORDS SUMMARY | 2024-02-09 09:05 | XMS_ITS | Patient Health Record ---
Author Organization [facility] Address [address] [place] [address] Care Team Providers Care Teacher Ballet Name Role Phone Alexx Baum Primary Care Provider UnavailNan Rudolph Unavailable [phone] ALLERGIES Allergen (clinical drug ingredient) Drug/Non Drug [...] Are you an other tobacco user? No PLAN OF TREATMENT No Information Insurance Providers Payer Name Payer Address Payer Phone Subscriber Number Group Number Insured Name Patient Relationship to Insured Coverage Start Date Coverage End Date [employer] [address] [place] [address] [id number] Dara Robles Self - patient is the insured MEDICAL (GENERAL) HISTORY Medical History History ICD Code Anxiety asthma Depression Kidney disease Surgical History Surgery Date(Month/Year)
--- OUTSIDE RECORDS SUMMARY | 2024-02-09 09:05 | XMS_ITS | Patient Health Record ---
Author Organization [facility] Address [address], [place] [id number] Support Name Relationship Address Phone Elmer Robles Emergency Contact [facility] [place] [facility] [phone] Dara Robles Guarantor Unknown Unavailable REASON FOR REFERRAL No Information SOCIAL HISTORY Sex Assigned At : Social History Observation Description Sex Assigned At Unknown PLAN OF TREATMENT No Information
--- NOTE | 2024-02-09 09:20 | MHC.OFFWIV ---
Intake Vital Signs 02/09/24 09:22 Height 5 ft 6 in Weight 211 lb BMI 34.1 BP 118/80 Blood Pressure Location Rt brachial Position Sitting Intake Visit Reasons: EP-lt eye swollen, burning, sticky discharging Intake Note: Patient here for swollen left eye, burning and discharge which started about 1 week ago. Patient Tobacco Use Status: Former Tobacco user Allergies lisinopril [LISINOPRIL] Allergy (Intermediate, Verified 02/09/24 09:24) EYES SWELL SHUT, angioedema, angioedema tramadol [TRAMADOL] Allergy (Intermediate, Verified 02/09/24 09:24) HIVES piperacillin [Zosyn] Allergy (Mild, Verified 02/09/24 09:24) rash cefazolin Allergy (Unknown, Verified 02/09/24 09:24) Unknown hydrocodone [From VICODIN] Allergy (Unknown, Verified 02/09/24 09:24) UNKNOWN ibuprofen [From Motrin] Allergy (Unknown, Verified 02/09/24 09:24) Unknown shellfish derived Allergy (Unknown, Verified 02/09/24 09:24) Unknown Sulfa (Sulfonamide Antibiotics) [SULFA (SULFONAMIDE ANTIBIOTICS)] Allergy (Unknown, Verified 02/09/24 09:24) UNKNOWN vancomycin Allergy (Unknown, Verified 02/09/24 09:24) rash azithromycin Adverse Reaction (Intermediate, Verified 02/09/24 09:24) dizziness/AVERY Medication List - Last Reconciled 02/09/24 by Wyatt Joy MD acetaminophen ER 650 mg PO Q12H 30 days albuterol sulfate 2.5 mg (3 mL) inhalation Q6H PRN 15 days albuterol sulfate 90 mcg/actuation 1 inh inhalation QID PRN 6 months amlodipine 1 tab PO DAILY blood sugar diagnostic ([employer] Verio test strips) As directed docusate sodium (Dulcolax Stool Softener (docusate)) 1 cap PO BID etonogestrel (Nexplanon) 68 mg subdermal DAILY famotidine (Pepcid) 20 mg PO DAILY lancets ([employer] Delica Plus Lancet) As directed mycophenolate mofetil (CellCept) 500 mg PO BID nebulizers (AeroEclipse II Nebulizer) As directed pantoprazole 40 mg PO DAILY sennosides (senna) 8.6 mg PO BID tacrolimus 3 mg PO Q12H tacrolimus 10 mg PO Q12H tirzepatide (Mounjaro) mg subcut valganciclovir mg PO Do you need a note to return to daycare/school/sports/work: No HPI EP-lt eye swollen, burning, sticky discharging HPI Details Patient is a 48-year-old female kidney transplant recipient Came in today with a chief complaint of burning sensation both eyes with watering Started with itchy eyes, 5 days ago Vision is intact no blurring Review system reveals no fever no chills no headache no dizziness no facial swelling On examination patient has developed mild conjunctivitis both eyes Going over her allergy list I see that she is allergic to number of medications I am prescribing gentamicin eyedrops 3 times a day for 5 days If no improvement patient will need to see eye doctor/follow up with primary care [facility] Medical History History of pulmonary embolism Chronic kidney disease Ankylosing spondylitis of lumbar region Right lumbar radiculopathy Surgical History S/P kidney transplant Status post dialysis Hx of bilateral breast reduction surgery Family History Mother No problems noted. Father No problems noted. Brother Substance abuse Social History Household Members: None Housing: Apartment Are you a primary post anesthesia care unit nurse to a significant other at home: No Do you presently have visiting nurse or other home services: No Alcohol intake: never Patient Tobacco Use Status: Former Tobacco user Years Smoked: 15 e-Cigarette/Vaping Use: Never Used Second Hand Smoke Exposure: No Advance Directives Date on File: 02/26/20 service: No Current occupational status: disabled Gender identity: Female Cognitive needs: No Hearing needs: No Vision needs: Yes (Glasses) Female Reproductive History Menstrual Age of Menarche: 17 Review of Systems Const All systems reviewed & are unremarkable except as noted in HPI and below Physical Exam Vital Signs: Last Vital Signs BP 118/80 02/09/24 09:22 BMI result Body Mass Index 34.1 Const General: no acute distress Orientation/consciousness: patient oriented x3 Eyes Other: PRETTY, EOMI, conjunctiva slightly injected both eyes, cloudy discharge at medial corners, no photophobia, cornea clear Resp Effort & Inspection: normal respiratory effort and able to speak in complete sentences Neuro General: patient oriented x3 Psych Mental Status: mental status grossly normal Assessment & Plan Assessment & Plan (1) Acute conjunctivitis of both eyes: Code(s): H10.33 - Unspecified acute conjunctivitis, bilateral Qualifiers: Acute conjunctivitis type: unspecified Qualified Code(s): H10.33 - Unspecified acute conjunctivitis, bilateral Plan Patient is a 48-year-old female kidney transplant recipient Came in today with a chief complaint of burning sensation both eyes with watering Started with itchy eyes, 5 days ago Vision is intact no blurring Review system reveals no fever no chills no headache no dizziness no facial swelling On examination patient has developed mild conjunctivitis both eyes Going over her allergy list I see that she is allergic to number of medications I am prescribing gentamicin eyedrops 3 times a day for 5 days If no improvement patient will need to see eye doctor/follow up with primary care Medications: New gentamicin 0.3% 1 drp ophthalmic (eye) Q8H 5 days 5 mL 0RF Coding Level of Care Code Est Pt Level 3 (35409) Diagnoses Acute conjunctivitis of both eyes, unspecified acute conjunctivitis type H10.33 Acute conjunctivitis type: unspecified
[2024-02-09 09:22] VITALS: BP 118/80; BMI 34.1
== END 2024-02-09 10:02 | disposition home or self-care (01) ==
PROVIDERS: PCP Physician Assistant; Visit Provider Internal Medicine
DX: H10.33 Unspecified acute conjunctivitis, bilateral (principal)

== ENCOUNTER → 2024-02-09 08:48 | Outpatient (BNVA) | payer MEDICARE, MEDICAID, SELFPAY | PROVIDERS: PCP Physician Assistant; Visit Provider Internal Medicine | DX: H10.33 Unspecified acute conjunctivitis, bilateral (principal) | CPT/HCPCS: 99212 ==

== ENCOUNTER 2024-04-07 08:39 | Outpatient (REF) | payer MEDICARE, MEDICAID, SELFPAY | END 2024-04-07 08:40 | disposition home or self-care (01) | LOC: HO.MAMMO 08:39 | PROVIDERS: PCP Physician Assistant; Visit Provider Physician Assistant | DX: Z12.31 Encounter for screening mammogram for malignant neoplasm of breast (principal) | CPT/HCPCS: 77063; 77067 ==

== ENCOUNTER → 2024-04-07 08:45 | Outpatient (BNV) | payer MEDICARE, MEDICAID, SELFPAY | PROVIDERS: PCP Physician Assistant; Visit Provider Internal Medicine | DX: Z12.31 Encounter for screening mammogram for malignant neoplasm of breast (principal) | CPT/HCPCS: 77063; 77067 ==

== ENCOUNTER 2024-05-02 08:02 | Outpatient (AMB) | payer MEDICARE, MEDICAID, SELFPAY ==
--- OUTSIDE RECORDS SUMMARY | 2024-05-02 08:08 | XMS_ITS | Clinical Summary ---
Author Organization Unknown Care Team Providers Care Medical Technologist Chemistry Name Role Phone RUDY HARRIS MD Unavailable Unavailable MASHA JUSTIN OT Unavailable Unavailshawn MOSELEY ([facility]) C - PT, JOHN Unavailable Unavailable HOLLY ([facility]) [facility] - PT, ADI Unavailable Unavailable Payers Payer Name Policy Type Policy Number Effective Date Expira tion Date MEDICARE - [place] - PD [id number] MEDICAID [facility] [id number] Problems Condition Name Condition Details Condition Category Status Onset Date Resolution Date Last Treatment Date Treating Clinician Comments AFTERCARE FOLLOWING JOINT REPLACEMENT SURGERY Active 10-06 00:00: 00 PRESENCE OF LEFT ARTIFICIAL SHOULDER JOINT Active 04-19 00:00: 00 TYPE 1 DIABETES MELLITUS WITHOUT COMPLICATION S Active 04-19 00:00: 00 HYPERTENSIVE HEART DISEASE WITH HEART FAILURE Active 04-19 00:00: 00 CHRONIC DIASTOLIC (CONGESTIVE) HEART FAILURE Active 04-19 00:00: 00 UNSPECIFIED ASTHMA, UNCOMPLICATE D Active 04-19 00:00: 00 GASTRO-ESOPH AGEAL REFLUX DISEASE WITHOUT ESOPHAGITIS Active 04-19 00:00: 00 HYPERLIPIDEM IA, UNSPECIFIED Active 04-19 00:00: 00 IRON DEFICIENCY ANEMIA, UNSPECIFIED Active 04-19 00:00: 00 SLEEP APNEA, UNSPECIFIED Active 04-19 00:00: 00 SECONDARY HYPERPARATHY ROIDISM OF RENAL ORIGIN Active 04-19 00:00: 00 OBESITY, UNSPECIFIED Active 04-19 00:00: 00 BODY MASS INDEX [BMI] 38.0-38.9, ADULT Active 04-19 00:00: 00 FRUIT PRESERVER (CURRENT) USE OF ANTICOAGULAN TS Active 04-19 00:00: 00 PERSONAL HISTORY OF PNEUMONIA (RECURRENT) Active 04-19 00:00: 00 Allergies, Adverse Reactions, Alerts Allergy Name Allergy Type Status Severity Reaction(s) Onset Date Inactive Date Treating Clinician Comments LISINOPRIL Propensity to adverse reactions Active 10-08 09:43: 13 VICODIN Propensity to adverse reactions Active 10-08 09:43: 22 MOTRIN Propensity to adverse reactions Active 10-08 09:43: 33 TRAMADOL Propensity to adverse reactions Active 10-08 09:43: 43 SEAFOOD/PRANEETH LFISH Propensity to adverse reactions Active 10-08 09:43: 54 Medications Ordered Medication Name Filled Medication Name Start Date Stop Date Current Medication? Ordering Clinician Indication Dosage Frequency Signature (SIG) Comments Components Velphoro 500 mg chewable tablet 09-12 00:00: 00 10-06 00:00 :00 No [id number] Per instruc tions 3 (THREE) TIMES A DAY Per instructio ns 3 (THREE) TIMES A DAY (route: oral) Med Classific ation: Genitouri nary Therapy Graciela-tony 8.6 mg tablet 09-23 00:00: 00 10-06 00:00 :00 No [id number] Per instruc tions 2 (TWO) TIMES A DAY Per instructio ns 2 (TWO) TIMES A DAY (route: oral) Med Classific ation: Gastroint estinal Therapy Agents Vitamin D2 1,250 mcg (50,000 unit) capsule 09-18 00:00: 00 04-19 23:59 :00 No [id number] Per instruc tions ONCE A WEEK Per instructio ns ONCE A WEEK (route: oral) Med Classific ation: Electroly te Balance-N utritiona l Products sulfamethox azole 400 mg-trimetho prim 80 mg tablet 09-23 00:00: 00 10-06 00:00 :00 No [id number] Per instruc tions Per instructio ns (route: oral) Med Classific ation: Anti-Infe ctive Agents Virt-Caps 1 mg capsule 09-23 00:00: 00 10-06 00:00 :00 No [id number] Per instruc tions DAILY Per instructio ns DAILY (route: oral) Med Classific ation: Electroly te Balance-N utritiona l Products docusate sodium 100 mg capsule 09-23 00:00: 00 10-06 00:00 :00 No [id number] Per instruc tions 2 (TWO) TIMES A DAY Per instructio ns 2 (TWO) TIMES A DAY (route: oral) Med Classific ation: Gastroint estinal Therapy Agents Eliquis 5 mg tablet 09-23 00:00: 00 10-06 00:00 :00 No [id number] Per instruc tions TWO (2) TIMES A DAY Per instructio ns TWO (2) TIMES A DAY (route: oral) Med Classific ation: Hematolog ical Agents pantoprazol e 40 mg tablet,laverne yed release 09-23 00:00: 00 10-06 00:00 :00 No [id number] Per instruc tions Per instructio ns (route: oral) Med Classific ation: Gastroint estinal Therapy Agents amlodipine 10 mg tablet 10-06 00:00: 00 04-19 23:59 :00 No [id number] 1 tablet DAILY 1 tablet DAILY (route: oral) Med Classific ation: Cardiovas cular Therapy Agents Breo Ellipta 100 mcg-25 mcg/dose powder for inhalation 10-06 00:00: 00 04-19 23:59 :00 No [id number] 1 inhalat ion DAILY 1 inhalation DAILY (route: inhalation ) Med Classific ation: Respirato ry Therapy Agents calcitriol 0.5 mcg capsule 10-06 00:00: 00 04-19 23:59 :00 No [id number] 1 capsule DAILY 1 capsule DAILY (route: oral) Med Classific ation: Electroly te Balance-N utritiona l Products docusate sodium 100 mg tablet 10-06 00:00: 00 04-19 23:59 :00 No [id number] 1 tablet 2 TIMES DAILY 1 tablet 2 TIMES DAILY (route: oral) Med Classific ation: Gastroint estinal Therapy Agents doxycycline hyclate 100 mg capsule 10-06 00:00: 00 04-19 23:59 :00 No [id number] 1 capsule EVERY 12 HOURS 1 capsule EVERY 12 HOURS (route: oral) Med Classific ation: Anti-Infe ctive Agents Eliquis 2.5 mg tablet 10-06 00:00: 00 04-19 23:59 :00 No [id number] 1 tablet 2 TIMES DAILY 1 tablet 2 TIMES DAILY (route: oral) Med Classific ation: Hematolog ical Agents famotidine 20 mg tablet 10-06 00:00: 00 04-19 23:59 :00 No [id number] 1 tablet 2 TIMES DAILY 1 tablet 2 TIMES DAILY (route: oral) Med Classific ation: Gastroint estinal Therapy Agents mycophenola te mofetil 250 mg capsule 10-06 00:00: 00 04-19 23:59 :00 No [id number] 2 capsule EVERY 12 HOURS 2 capsule EVERY 12 HOURS (route: oral) Med Classific ation: Immunosup pressive Agents oxycodone-a cetaminophe n 5 mg-325 mg tablet 10-06 00:00: 00 04-19 23:59 :00 No [id number] 1 tablet EVERY 4 HOURS 1 tablet EVERY 4 HOURS (route: oral) Med Classific ation: Analgesic , Anti-infl ammatory or Antipyret ic pantoprazol e 40 mg tablet,laverne yed release 10-06 00:00: 00 04-19 23:59 :00 No [id number] 1 tablet DAILY 1 tablet DAILY (route: oral) Med Classific ation: Gastroint estinal Therapy Agents prednisone 5 mg tablet 10-06 00:00: 00 04-19 23:59 :00 No [id number] 1 tablet DAILY 1 tablet DAILY (route: oral) Med Classific ation: Endocrine Senna Laxative 8.6 mg tablet 10-06 00:00: 00 04-19 23:59 :00 No [id number] 2 tablet BEDTIME 2 tablet BEDTIME (route: oral) Med Classific ation: Gastroint estinal Therapy Agents sodium bicarbonate 650 mg tablet 10-06 00:00: 00 04-19 23:59 :00 No [id number] 2 tablet 3 TIMES A WEEK 2 tablet 3 TIMES A WEEK (route: oral) Med Classific ation: Gastroint estinal Therapy Agents tacrolimus 1 mg capsule, immediate-r elease 10-06 00:00: 00 04-19 23:59 :00 No [id number] 2 capsule 2 TIMES DAILY 2 capsule 2 TIMES DAILY (route: oral) Med Classific ation: Immunosup pressive Agents tacrolimus 5 mg capsule, immediate-r elease 10-06 00:00: 00 04-19 23:59 :00 No [id number] 2 capsule EVERY 12 HOURS 2 capsule EVERY 12 HOURS (route: oral) Med Classific ation: Immunosup pressive Agents Immunizations Ordered Immunization Name Filled Immunization Name Date Status Comments Refusal Reason COVID BOOSTER, COVID BOOSTER 2022-01-17 00:00:00 Vital Signs Vital Name Observation Time Observation Value Commen ts Temperature 2022-11-16 09:18:00.000 97.2 [degF] Temperature 2022-11-11 15:37:00.000 97.2 [degF] Temperature 2022-11-06 09:57:00.000 97.5 [degF] Temperature 2022-11-03 11:28:00.000 97.6 [degF] Temperature 2022-10-28 10:35:00.000 97.1 [degF] Temperature 2022-10-22 11:35:00.000 97.4 [degF] Temperature 2022-10-19 13:14:00.000 97.4 [degF] Temperature 2022-10-16 10:15:00.000 97.4 [degF] Temperature 2022-10-06 09:46:00.000 97.8 [degF] BMI (%) 2022-10-06 09:46:00.000 38 kg/m2 Height 2022-10-06 09:46:00.000 66 [in_us] Pulse 2022-11-16 09:18:00.000 64 /min Pulse 2022-11-11 15:37:00.000 90 /min Pulse 2022-11-06 09:57:00.000 65 /min Pulse 2022-11-03 11:28:00.000 86 /min Pulse 2022-10-28 10:35:00.000 84 /min Pulse 2022-10-22 11:35:00.000 92 /min Pulse 2022-10-19 13:14:00.000 84 /min Pulse 2022-10-16 10:15:00.000 80 /min Pulse 2022-10-13 09:13:00.000 71 /min Pulse 2022-10-06 12:45:00.000 78 /min Pulse 2022-10-06 09:46:00.000 89 /min O2 Saturation (%) 2022-11-11 15:37:00.000 93 % O2 Saturation (%) 2022-11-06 09:57:00.000 96 % O2 Saturation (%) 2022-11-03 11:28:00.000 100 % O2 Saturation (%) 2022-10-28 10:35:00.000 94 % O2 Saturation (%) 2022-10-22 11:35:00.000 98 % O2 Saturation (%) 2022-10-19 13:14:00.000 96 % O2 Saturation (%) 2022-10-16 10:15:00.000 96 % O2 Saturation (%) 2022-10-13 09:13:00.000 99 % O2 Saturation (%) 2022-10-06 12:45:00.000 98 % Respirations 2022-11-16 09:18:00.000 18 /min Respirations 2022-11-11 15:37:00.000 18 /min Respirations 2022-11-06 09:57:00.000 18 /min Respirations 2022-10-28 10:35:00.000 18 /min Respirations 2022-10-22 11:35:00.000 18 /min Respirations 2022-10-19 13:14:00.000 18 /min Respirations 2022-10-16 10:15:00.000 18 /min Respirations 2022-10-06 09:46:00.000 16 /min Weight (lbs) 2022-10-06 09:46:00.000 241 [lb_av] Systolic Blood Pressure 2022-11-16 09:18:00.000 130 mm [Hg] Systolic Blood Pressure 2022-11-11 15:37:00.000 140 mm [Hg] Systolic Blood Pressure 2022-11-06 09:57:00.000 120 mm [Hg] Systolic Blood Pressure 2022-11-03 11:28:00.000 138 mm [Hg] Systolic Blood Pressure 2022-10-28 10:35:00.000 124 mm [Hg] Systolic Blood Pressure 2022-10-22 11:35:00.000 130 mm [Hg] Systolic Blood Pressure 2022-10-19 13:14:00.000 126 mm [Hg] Systolic Blood Pressure 2022-10-16 10:15:00.000 130 mm [Hg] Systolic Blood Pressure 2022-10-13 09:13:00.000 130 mm [Hg] Systolic Blood Pressure 2022-10-06 09:46:00.000 140 mm [Hg] Diastolic Blood Pressure 2022-11-16 09:18:00.000 76 mm [Hg] Diastolic Blood Pressure 2022-11-11 15:37:00.000 70 mm [Hg] Diastolic Blood Pressure 2022-11-06 09:57:00.000 78 mm [Hg] Diastolic Blood Pressure 2022-11-03 11:28:00.000 90 mm [Hg] Diastolic Blood Pressure 2022-10-28 10:35:00.000 76 mm [Hg] Diastolic Blood Pressure 2022-10-22 11:35:00.000 80 mm [Hg] Diastolic Blood Pressure 2022-10-19 13:14:00.000 70 mm [Hg] Diastolic Blood Pressure 2022-10-16 10:15:00.000 90 mm [Hg] Diastolic Blood Pressure 2022-10-13 09:13:00.000 68 mm [Hg] Diastolic Blood Pressure 2022-10-06 09:46:00.000 78 mm [Hg] Plan of Treatment Planned Activity Planned Date Details Comments Future Scheduled Test PHYSICAL T HERAPIST TO EVALUATE PATIENT SECONDARY TO FUNCTIONAL DEFICITS/SAFETY CONCERNS. [code = PHYSICAL THERAPIST TO EVALUATE PATIENT SECONDARY TO FUNCTIONAL DEFICITS/SAFETY CONCERNS.] Future Scheduled Test SUMMARY OF THERAPY EVAL/ASSESSMENT FINDINGS AND REASON(S) SKILLS OF A THERAPIST ARE INDICATED: PATIENT IS A 46 YEAR OLD FEMALE STATUS POST LEFT REVERSED TOTAL SHOULDER REPLACEMENT. PAST MEDICAL HISTORY INCLUDES INSULIN DEPENDENT DIABETES, HYPERTENSION, OSTEOARTHRITIS LEFT KNEE, KIDNEY TRANSPLANT 2020. PRIOR LEVEL OF MOBILITY WAS INDEPENDENT. PATIENT IS ALERT IN ORIENTATED TIMES 4. SHE STANDS 5 FT 6 IN TALL WITH A WEIGHT OF 241 LB. PATIENT COMPLAINS OF LEFT SHOULDER PAIN REACHING 7 OUT OF 10 MANAGE WITH CURRENT MEDICATIONS TO 5 OUT OF 10. PATIENT HAS STRAIGHT CANE, SHOULDER IMMOBILIZER AND VERSAFRAME OVER TOILET. BOWEL AND BLADDER ARE INTACT. PATIENT IS CURRENTLY SPONGE BATH LEVEL WITH BALANCER SCALE ASSISTANCE. RESTING BLOOD PRESSURE 140 / 78 HEART RATE 89 RESPIRATORY RATE 16 TEMPERATURE 97.8. VISION AND HEARING ARE INTACT. SHOULDER INCISION COVERED BY NON REMOVABLE DRESSING. PATIENT SENSATION INTACT IN LEFT HAND WITH GOOD MOTOR CONTROL. PATIENT WITH NOTED WEAKNESS BILATERAL LOWER EXTREMITIES LEFT GREATER THAN RIGHT MOST LIKELY RELATED TO PAIN. ZERO REPETITIONS OF CHAIR RISE TEST. PATIENT AMBULATING WITH CANE TO WITHOUT ASSISTIVE DEVICE UNSAFE FURNITURE AND WALL WALKING. SAFETY EDUCATION PROVIDED TO PATIENT ALONG WITH EDUCATION OF RISK OF IRREVERSIBLE DAMAGE TO SHOULDER WITH FALL. PATIENT HAS ELEVATOR TO ENTER APARTMENT BUILDING. PATIENT INSTRUCTED THIS VISIT AND EDEMA MANAGEMENT PAIN MANAGEMENT ACTIVITY RESTRICTIONS WALKING SCHEDULE SHOULDER PRECAUTIONS. WILL BENEFIT FROM SHORT-TERM HOME THERAPY TO ADDRESS BILATERAL LOWER EXTREMITY STRENGTH AND RANGE OF MOTION, PROGRESSIVE GAIT TRAINING, SAFETY EDUCATION AND FALL PREVENTION. PATIENT AGREES WITH PLAN OF CARE. MEDICATION RECONCILIATION COMPLETED WITH DISCHARGE PAPERWORK. [code = SUMMARY OF THERAPY EVAL/ASSESSMENT FINDINGS AND REASON(S) SKILLS OF A THERAPIST ARE INDICATED: PATIENT IS A 46 YEAR OLD FEMALE STATUS POST LEFT REVERSED TOTAL SHOULDER REPLACEMENT. PAST MEDICAL HISTORY INCLUDES INSULIN DEPENDENT DIABETES, HYPERTENSION, OSTEOARTHRITIS LEFT KNEE, KIDNEY TRANSPLANT 2020. PRIOR LEVEL OF MOBILITY WAS INDEPENDENT. PATIENT IS ALERT IN ORIENTATED TIMES 4. SHE STANDS 5 FT 6 IN TALL WITH A WEIGHT OF 241 LB. PATIENT COMPLAINS OF LEFT SHOULDER PAIN REACHING 7 OUT OF 10 MANAGE WITH CURRENT MEDICATIONS TO 5 OUT OF 10. PATIENT HAS STRAIGHT CANE, SHOULDER IMMOBILIZER AND VERSAFRAME OVER TOILET. BOWEL AND BLADDER ARE INTACT. PATIENT IS CURRENTLY SPONGE BATH LEVEL WITH BALANCER SCALE ASSISTANCE. RESTING BLOOD PRESSURE 140 / 78 HEART RATE 89 RESPIRATORY RATE 16 TEMPERATURE 97.8. VISION AND HEARING ARE INTACT. SHOULDER INCISION COVERED BY NON REMOVABLE DRESSING. PATIENT SENSATION INTACT IN LEFT HAND WITH GOOD MOTOR CONTROL. PATIENT WITH NOTED WEAKNESS BILATERAL LOWER EXTREMITIES LEFT GREATER THAN RIGHT MOST LIKELY RELATED TO PAIN. ZERO REPETITIONS OF CHAIR RISE TEST. PATIENT AMBULATING WITH CANE TO WITHOUT ASSISTIVE DEVICE UNSAFE FURNITURE AND WALL WALKING. SAFETY EDUCATION PROVIDED TO PATIENT ALONG WITH EDUCATION OF RISK OF IRREVERSIBLE DAMAGE TO SHOULDER WITH FALL. PATIENT HAS ELEVATOR TO ENTER APARTMENT BUILDING. PATIENT INSTRUCTED THIS VISIT AND EDEMA MANAGEMENT PAIN MANAGEMENT ACTIVITY RESTRICTIONS WALKING SCHEDULE SHOULDER PRECAUTIONS. WILL BENEFIT FROM SHORT-TERM HOME THERAPY TO ADDRESS BILATERAL LOWER EXTREMITY STRENGTH AND RANGE OF MOTION, PROGRESSIVE GAIT TRAINING, SAFETY EDUCATION AND FALL PREVENTION. PATIENT AGREES WITH PLAN OF CARE. MEDICATION RECONCILIATION COMPLETED WITH DISCHARGE PAPERWORK.] Future Scheduled Test PHYSICAL T HERAPIST TO ASSESS BEST PRACTICE INTERVENTIONS TO ASSIST PATIENTS TO IMPROVE OR STABILIZE MEDICAL STATUS AND PREVENT RE-HOSPITALIZATION. MEASURES INCLUDING REVIEW AND IDENTIFICATION OF CONCERNS FOR THE FOLLOWING AREAS DEPRESSION, DRUG REGIMEN, DIABETIC FOOT CARE, ENVIRONMENTAL SAFETY ISSUES AND FALLS, PAIN, AND DISEASE MANAGEMENT. [code = PHYSICAL THERAPIST TO ASSESS BEST PRACTICE INTERVENTIONS TO ASSIST PATIENTS TO IMPROVE OR STABILIZE MEDICAL STATUS AND PREVENT RE-HOSPITALIZATION. MEASURES INCLUDING REVIEW AND IDENTIFICATION OF CONCERNS FOR THE FOLLOWING AREAS DEPRESSION, DRUG REGIMEN, DIABETIC FOOT CARE, ENVIRONMENTAL SAFETY ISSUES AND FALLS, PAIN, AND DISEASE MANAGEMENT.] Future Scheduled Test PHYSICAL T HERAPY TO ESTABLISH /UPGRADE/DOWNGRADE THERAPEUTIC EXERCISE PROGRAM AND INSTRUCT PATIENT/CAREGIVER ON EXERCISE PRECAUTIONS WITH WRITTEN HOME PROGRAM. MAY INCLUDE PROM, AAROM, AROM, RROM APPROPRIATE TO IMPROVE FUNCTIONAL STRENGTH AND RANGE OF MOTION. [code = PHYSICAL THERAPY TO ESTABLISH /UPGRADE/DOWNGRADE THERAPEUTIC EXERCISE PROGRAM AND INSTRUCT PATIENT/CAREGIVER ON EXERCISE PRECAUTIONS WITH WRITTEN HOME PROGRAM. MAY INCLUDE PROM, AAROM, AROM, RROM APPROPRIATE TO IMPROVE FUNCTIONAL STRENGTH AND RANGE OF MOTION.] Future Scheduled Test PHYSICAL T HERAPY TO INSTRUCT PATIENT/CAREGIVER ON SAFE TRANSFER TECHNIQUES USING PROPER BODY MECHANICS AND EQUIPMENT. [code = PHYSICAL THERAPY TO INSTRUCT PATIENT/CAREGIVER ON SAFE TRANSFER TECHNIQUES USING PROPER BODY MECHANICS AND EQUIPMENT.] Future Scheduled Test PHYSICAL T HERAPY TO INSTRUCT PATIENT/CAREGIVER ON GAIT TRAINING TECHNIQUES USING APPROPRIATE ASSISTIVE DEVICE, PROPER BODY MECHANICS TO IMPROVE MOBILITY, AND PREVENT INJURY OF PATIENT AND/OR CAREGIVER. [code = PHYSICAL THERAPY TO INSTRUCT PATIENT/CAREGIVER ON GAIT TRAINING TECHNIQUES USING APPROPRIATE ASSISTIVE DEVICE, PROPER BODY MECHANICS TO IMPROVE MOBILITY, AND PREVENT INJURY OF PATIENT AND/OR CAREGIVER.] Future Scheduled Test PHYSICAL T HERAPY TO ASSESS AND RECOMMEND HOME SAFETY ADAPTATIONS AND EDUCATE PATIENT /CAREGIVER ON FALL PREVENTION STRATEGIES. [code = PHYSICAL THERAPY TO ASSESS AND RECOMMEND HOME SAFETY ADAPTATIONS AND EDUCATE PATIENT /CAREGIVER ON FALL PREVENTION STRATEGIES.] Future Scheduled Test PHYSICAL T HERAPY FOR OBSERVATION AND ASSESSMENT OF PAIN, EFFECTIVENESS OF PAIN MANAGEMENT REGIMEN AND SKILLED TEACHING RELATED TO PAIN MANAGEMENT. THERAPIST TO REPORT INCREASED PAIN LEVEL TO PHYSICIAN FOR PROMPT INTERVENTION. [code = PHYSICAL THERAPY FOR OBSERVATION AND ASSESSMENT OF PAIN, EFFECTIVENESS OF PAIN MANAGEMENT REGIMEN AND SKILLED TEACHING RELATED TO PAIN MANAGEMENT. THERAPIST TO REPORT INCREASED PAIN LEVEL TO PHYSICIAN FOR PROMPT INTERVENTION.] Future Scheduled Test OCCUPATION AL THERAPIST TO EVALUATE PATIENT SECONDARY TO FUNCTIONAL DEFICITS/SAFETY CONCERNS IDENTIFIED DURING EVALUATION OCCUPATIONAL THERAPY TO ASSESS AND RECOMMEND HOME SAFETY ADAPTATIONS AND EDUCATE PATIENT /CAREGIVER ON FALL PREVENTION STRATEGIES TO ENHANCE PARTICIPATION IN ADLS. OCCUPATIONAL THERAPY TO PROVIDE PATIENT/CAREGIVER WITH INSTRUCTIONS AND RECOMMENDATIONS TO IMPROVE ADLS WHILE USING APPROPRIATE ADAPTIVE DEVICES RECOMMENDED. SUMMARY OF THERAPY EVAL/ASSESSMENT FINDINGS AND REASON(S) SKILLS OF A THERAPIST ARE INDICATED: OT EVALUATION (10/06/22) PATIENT IS A 47 YEAR OLD FEMALE REFERRED TO OT SERVICES AFTER RECENT FALL AT HOME DEPIY INJURING HER LEFT SHOULDER AND LEFT KNEE. PATIENT UNDERWENT 6 WEEKS IF PHYSICAL THERAPY BEFORE ULTIMATELY REQUIRING SURGICAL INTERVENTION. PATIENT UNDERWENT REVERSE TOTAL SHOULDER ARTHROPLASTY DUE TO MASSIVE LEFT ROTATOR CUFF TEAR. VICKY UNDERWENT OPERATION 09/29/[address] HARRIS AT [facility]. PATIENT HAS SIGNIFICANT PMH INCLUDING: AORTIC VALVE STENOSIS, ASTHMA, BORDERLINE PERSONALITY DISORDER, GERD, HYPERTENSION, HYPERLIPIDEMIA, OBESITY, OSTEOARTHRITIS, ANEMIA, SLEEP APNEA, BIPOLAR DISORDER, CHRONIC KIDNEY DISEASE REQUIRING RENAL TRANSPLANT IN 2020, POST TRANSPLANT DIABETES, CONGESTIVE HEART FAILURE, INTERSTITIAL LUNG DISEASE, UTERINE LEIOMYOMA, HISTORY OF BREAST REDUCTION SURGERY AND HISTORY OF KIDNEY TRANSPLANT. PATIENT'S CURRENT PRECAUTIONS: LEFT UPPER EXTREMITY [id number]/ IN THE SLING AT ALL TIMES /NO ACTIVE RANGE OF MOTION OR PENDULUM. PRI9R LEVEL OF FUNCTION: PATIENT LIVES IN A SECOND FLOOR SENIOR HOUSING APARTMENT WITH ELEVATOR ACCESS. PATIENT LIVES ALONE AND HAS ACCESS TO BALANCER SCALE SERVICES 7 DAYS A WEEK TWICE A DAY. SHE RECEIVES ASSISTANCE FOR IADL TASKS HOWEVER WAS MANAGING ADLS INDEPENDENTLY. PATIENT DOES HAVE GRAB BARS AND HELD SHOWER HEAD AND ADJUSTABLE BED IN PLACE. CURRENT LEVEL OF FUNCTION: PATIENT AGITATED UPON THERAPIST ARRIVAL SHE WAS EXPECTING ME SOONER AT A SPECIFIC TIME WHEN SHE WAS GIVEN A WINDOW OF ARRIVAL TIME THAT I HAD SHOWED UP DURING. PATIENT WAS SLIGHTLY SHORT WITH THERAPIST AND ANSWERS INITIALLY HOWEVER WAS ABLE TO WARM UP TO CLINICIAN AND INTERACT APPROPRIATELY. QUESTIONS REGARDING PATIENT'S ABILITY TO SHOWER GIVEN HER WOUND FROM HER RECENT SURGERY IT WAS NOTED TO HAVE A TEGADERM OVER A GLUED SUTURE ON THE ANTERIOR ASPECT OF HER SHOULDER ROUGHLY 7 TO 8 IN LONG. CONTACTED ORTHOPEDIC OFFICE WHO APPROVED PATIENT'S ABILITY TO SHOWER. PATIENT WAS ABLE TO DEMONSTRATE FUNCTIONAL TRANSFER TO STAND FROM THE COUCH TOILET TRANSFER INDEPENDENTLY. QUESTIONS PATIENCE FOOTWEAR APPROPRIATENESS GIVEN HER FALL HISTORY AND CURRENT INJURIES, THE PATIENT CONTINUED TO WEAR FLIP FLOPS. PATIENT PARTICIPATED IN SHOWER LEVEL BATHING TASK TODAY ONCE CLEAR THROUGH ORTHOPEDIC OFFICE THAT PATIENT WAS ALLOWED TO SHOWER. PATIENT DID HAVE TO REMAIN IN THE SLING AND HAD EXTRA SLINGS THAT THIS EARLY CHILDHOOD TEACHER ASSISTANT HAD HER WEAR DURING THE SHOWER AND SWITCH TO A DRY ONE DURING DRESSING. PATIENT REQUIRED CONTACT GUARD ASSIST TO GET IN AND OUT OF THE TUB WITH GRAB BARS. SHE WAS ABLE TO BE HERSELF WITH CONTACT GUARD ASSIST/ SUPERVISION. REQUIRED CUES TO MAINTAIN HER NO RANGE OF MOTION HOWEVER WAS USING HER LEFT ARM TO ASSIST WITH BATHING CONTINUALLY QUEUED HER NOT TO. PATIENT THEN CAME OUT TO DRY HERSELF REQUIRED ASSISTANCE FOR LOWER BODY DRYING. SHE WAS ABLE TO DRESS UPPER BODY WITH PUTTING LEFT ARM IN FIRST UP OVER HER HEAD INTO HER RIGHT. REQUIRED MINIMAL ASSISTANCE FOR DONNING OF THE SLING APPROPRIATELY. CONTINUE TO REQUIRE CUES FOR RUBBING LOTION ON HERSELF AND NOT USING THAT LEFT UPPER EXTREMITY. AND REQUIRED MOD ASSIST FOR LOWER BODY DRESSING. SHE DOES REPORT THAT SHE HAS NO DIFFICULTIES WITH TOILETING EVEN THOUGH LEFT UPPER EXTREMITY IS HER DOMINANT ARM. AND IS ABLE TO BRUSH HER TEETH AND FIX HER HAIR WITH HER RIGHT UPPER EXTREMITY. PATIENT IS ABLE TO PREPARE SIMPLE SNACK AND MEAL TASKS WITH HER RIGHT UPPER EXTREMITY. SHE DOES HAVE ASSISTANCE FOR CLEANING SHOPPING AND LAUNDRY AT THIS TIME PROVIDED BY BALANCER SCALE'S AND FRIENDS. SHE HAS HER MEDICATION SET UP IN A MEDICATION MACHINE SIZER ALTHOUGH UNKNOWN WHO SETS THAT UP FOR HER. SHE HAS SOME SUPERVISION FOR OVERALL HOME SAFETY. SHE OFFERS COMPLAINTS OF PAIN AT START OF EVALUATION HAD HOWEVER THE EVALUATION WENT ON SHE REPORTED, MY ARM HAS NO PAIN AND THAT IT WAS JUST FINE. ASSESSMENT/POC: OCCUPATIONAL THERAPY EVALUATION COMPLETED TODAY FOR SAFETY WITH MAINTAINING LEFT UPPER EXTREMITY PRECAUTIONS DURING ADLS. PATIENT REQUIRED CUES AND WAS HAVING DIFFICULTY NOT USING HER LEFT UPPER EXTREMITY THIS IS HER DOMINANT ARM. PATIENT TO HAVE FOLLOW UP WITH ORTHOPEDIC 10/14/22 FOR UPDATE. AT THIS TIME PATIENT WILL HAVE ONE ADDITIONAL VISIT FOR ADL MANAGEMENT ABILITIES. ONCE ORTHOPEDIC SEES PATIENT AND UPDATE STATUS FOR RANGE OF MOTION AND THERAPY RECOMMENDATION FOR PATIENT TO GO OUTPATIENT FOR THOSE SERVICES SHE HAD DONE PRIOR TO SURGERY. MD NOTIFIED OF OT PLAN OF CARE. PATIENT IN AGREEMENT FOR 1X/WKX2 TO MEET GOALS. [code = OCCUPATIONAL THERAPIST TO EVALUATE PATIENT SECONDARY TO FUNCTIONAL DEFICITS/SAFETY CONCERNS IDENTIFIED DURING EVALUATION OCCUPATIONAL THERAPY TO ASSESS AND RECOMMEND HOME SAFETY ADAPTATIONS AND EDUCATE PATIENT /CAREGIVER ON FALL PREVENTION STRATEGIES TO ENHANCE PARTICIPATION IN ADLS. OCCUPATIONAL THERAPY TO PROVIDE PATIENT/CAREGIVER WITH INSTRUCTIONS AND RECOMMENDATIONS TO IMPROVE ADLS WHILE USING APPROPRIATE ADAPTIVE DEVICES RECOMMENDED. SUMMARY OF THERAPY EVAL/ASSESSMENT FINDINGS AND REASON(S) SKILLS OF A THERAPIST ARE INDICATED: OT EVALUATION (10/06/22) PATIENT IS A 47 YEAR OLD FEMALE REFERRED TO OT SERVICES AFTER RECENT FALL AT HOME DEPIY INJURING HER LEFT SHOULDER AND LEFT KNEE. PATIENT UNDERWENT 6 WEEKS IF PHYSICAL THERAPY BEFORE ULTIMATELY REQUIRING SURGICAL INTERVENTION. PATIENT UNDERWENT REVERSE TOTAL SHOULDER ARTHROPLASTY DUE TO MASSIVE LEFT ROTATOR CUFF TEAR. HERMELINDO5 UNDERWENT OPERATION 09/29/[address] HARRIS AT [facility]. PATIENT HAS SIGNIFICANT PMH INCLUDING: AORTIC VALVE STENOSIS, ASTHMA, BORDERLINE PERSONALITY DISORDER, GERD, HYPERTENSION, HYPERLIPIDEMIA, OBESITY, OSTEOARTHRITIS, ANEMIA, SLEEP APNEA, BIPOLAR DISORDER, CHRONIC KIDNEY DISEASE REQUIRING RENAL TRANSPLANT IN 2020, POST TRANSPLANT DIABETES, CONGESTIVE HEART FAILURE, INTERSTITIAL LUNG DISEASE, UTERINE LEIOMYOMA, HISTORY OF BREAST REDUCTION SURGERY AND HISTORY OF KIDNEY TRANSPLANT. PATIENT'S CURRENT PRECAUTIONS: LEFT UPPER EXTREMITY [id number]/ IN THE SLING AT ALL TIMES /NO ACTIVE RANGE OF MOTION OR PENDULUM. PRI9R LEVEL OF FUNCTION: PATIENT LIVES IN A SECOND FLOOR SENIOR HOUSING APARTMENT WITH ELEVATOR ACCESS. PATIENT LIVES ALONE AND HAS ACCESS TO [employer] 7 DAYS A WEEK TWICE A DAY. SHE RECEIVES ASSISTANCE FOR IADL TASKS HOWEVER WAS MANAGING ADLS INDEPENDENTLY. PATIENT DOES HAVE GRAB BARS AND HELD SHOWER HEAD AND ADJUSTABLE BED IN PLACE. CURRENT LEVEL OF FUNCTION: PATIENT AGITATED UPON THERAPIST ARRIVAL SHE WAS EXPECTING ME SOONER AT A SPECIFIC TIME WHEN SHE WAS GIVEN A WINDOW OF ARRIVAL TIME THAT I HAD SHOWED UP DURING. PATIENT WAS SLIGHTLY SHORT WITH THERAPIST AND ANSWERS INITIALLY HOWEVER WAS ABLE TO WARM UP TO CLINICIAN AND INTERACT APPROPRIATELY. QUESTIONS REGARDING PATIENT'S ABILITY TO SHOWER GIVEN HER WOUND FROM HER RECENT SURGERY IT WAS NOTED TO HAVE A TEGADERM OVER A GLUED SUTURE ON THE ANTERIOR ASPECT OF HER SHOULDER ROUGHLY 7 TO 8 IN LONG. CONTACTED ORTHOPEDIC OFFICE WHO APPROVED PATIENT'S ABILITY TO SHOWER. PATIENT WAS ABLE TO DEMONSTRATE FUNCTIONAL TRANSFER TO STAND FROM THE COUCH TOILET TRANSFER INDEPENDENTLY. QUESTIONS PATIENCE FOOTWEAR APPROPRIATENESS GIVEN HER FALL HISTORY AND CURRENT INJURIES, THE PATIENT CONTINUED TO WEAR FLIP FLOPS. PATIENT PARTICIPATED IN SHOWER LEVEL BATHING TASK TODAY ONCE CLEAR THROUGH ORTHOPEDIC OFFICE THAT PATIENT WAS ALLOWED TO SHOWER. PATIENT DID HAVE TO REMAIN IN THE SLING AND HAD EXTRA SLINGS THAT THIS EARLY CHILDHOOD TEACHER ASSISTANT HAD HER WEAR DURING THE SHOWER AND SWITCH TO A DRY ONE DURING DRESSING. PATIENT REQUIRED CONTACT GUARD ASSIST TO GET IN AND OUT OF THE TUB WITH GRAB BARS. SHE WAS ABLE TO BE HERSELF WITH CONTACT GUARD ASSIST/ SUPERVISION. REQUIRED CUES TO MAINTAIN HER NO RANGE OF MOTION HOWEVER WAS USING HER LEFT ARM TO ASSIST WITH BATHING CONTINUALLY QUEUED HER NOT TO. PATIENT THEN CAME OUT TO DRY HERSELF REQUIRED ASSISTANCE FOR LOWER BODY DRYING. SHE WAS ABLE TO DRESS UPPER BODY WITH PUTTING LEFT ARM IN FIRST UP OVER HER HEAD INTO HER RIGHT. REQUIRED MINIMAL ASSISTANCE FOR DONNING OF THE SLING APPROPRIATELY. CONTINUE TO REQUIRE CUES FOR RUBBING LOTION ON HERSELF AND NOT USING THAT LEFT UPPER EXTREMITY. AND REQUIRED MOD ASSIST FOR LOWER BODY DRESSING. SHE DOES REPORT THAT SHE HAS NO DIFFICULTIES WITH TOILETING EVEN THOUGH LEFT UPPER EXTREMITY IS HER DOMINANT ARM. AND IS ABLE TO BRUSH HER TEETH AND FIX HER HAIR WITH HER RIGHT UPPER EXTREMITY. PATIENT IS ABLE TO PREPARE SIMPLE SNACK AND MEAL TASKS WITH HER RIGHT UPPER EXTREMITY. SHE DOES HAVE ASSISTANCE FOR CLEANING SHOPPING AND LAUNDRY AT THIS TIME PROVIDED BY BALANCER SCALE'S AND FRIENDS. SHE HAS HER MEDICATION SET UP IN A MEDICATION MACHINE SIZER ALTHOUGH UNKNOWN WHO SETS THAT UP FOR HER. SHE HAS SOME SUPERVISION FOR OVERALL HOME SAFETY. SHE OFFERS COMPLAINTS OF PAIN AT START OF EVALUATION HAD HOWEVER THE EVALUATION WENT ON SHE REPORTED, MY ARM HAS NO PAIN AND THAT IT WAS JUST FINE. ASSESSMENT/POC: OCCUPATIONAL THERAPY EVALUATION COMPLETED TODAY FOR SAFETY WITH MAINTAINING LEFT UPPER EXTREMITY PRECAUTIONS DURING ADLS. PATIENT REQUIRED CUES AND WAS HAVING DIFFICULTY NOT USING HER LEFT UPPER EXTREMITY THIS IS HER DOMINANT ARM. PATIENT TO HAVE FOLLOW UP WITH ORTHOPEDIC 10/14/22 FOR UPDATE. AT THIS TIME PATIENT WILL HAVE ONE ADDITIONAL VISIT FOR ADL MANAGEMENT ABILITIES. ONCE ORTHOPEDIC SEES PATIENT AND UPDATE STATUS FOR RANGE OF MOTION AND THERAPY RECOMMENDATION FOR PATIENT TO GO OUTPATIENT FOR THOSE SERVICES SHE HAD DONE PRIOR TO SURGERY. NOTIFIED OF OT PLAN OF CARE. PATIENT IN AGREEMENT FOR 1X/WKX2 TO MEET GOALS.] Goal 2022-11-16 Patient Goal - TO IMPROVE US E OF ARM Goal Provider Goal - PHYSICAL THERAPY EVALUATION TO BE COMPLETED WITH RECOMMENDATIONS AND/OR WRITTEN TREATMENT PLAN OF CARE ESTABLISHED FOR THE PHYSICIANS SIGNATURE Goal Provider Goal - Goal Provider Goal - PATIENT/CAREGIVER VERBALIZES UNDERSTANDING OF THE INITIAL BEST PRACTICE RECOMMENDATIONS. PHYSICIAN TO BE NOTIFIED APPROPRIATE FOR ANY CHANGES OR COMPLICATIONS THROUGHOUT THE CERTIFICATION PERIOD. Goal Provider Goal - PATIENT/CAREGIVER WILL PERFORM THERAPEUTIC EXERCISE/S AND DEMONSTRATE PARTICIPATION IN A HOME PROGRAM TO IMPROVE FUNCTION OF BLE. Goal Provider Goal - PATIENT/CAREGIVER WILL DEMONSTRATE SAFE TRANSFERS USING APPROPRIATE ASSISTIVE DEVICE AND BODY MECHANICS AND EQUIPMENT TO IMPROVE FUNCTION OF TRANSFERS. Goal Provider Goal - PATIENT/CAREGIVER WILL DEMONSTRATE IMPROVED GAIT TECHNIQUES TO MINIMIZE RISK OF INJURY AND INCREASE FUNCTION OF AMBULATION IN HOME. Goal Provider Goal - PATIENT/CAREGIVER WILL DEMONSTRATE/VERBALIZE UNDERSTANDING OF RECOMMENDATIONS TO INCREASE SAFETY IN THE HOME AND FALL PREVENTION TO IMPROVE FUNCTION OF MOBILITY IN HOME. Goal Provider Goal - INCREASED PAIN OR INEFFECTIVE PAIN CONTROL MEASURES WILL BE IDENTIFIED AND PROMPTLY REPORTED TO THE PHYSICIAN. PATIENT/CAREGIVER WILL DEMONSTRATE EFFECTIVE PAIN MANAGEMENT TO IMPROVE FUNCTION OF MOBILITY AND ADLS. Goal Provider Goal - OCCUPATIONAL THERAPIST TO EVALUATE PATIENT SECONDARY TO FUNCTIONAL DEFICITS/SAFETY CONCERNS IDENTIFIED DURING EVALUATION. CAREGIVER/PATIENT WILL DEMONSTRATE/VERBALIZE UNDERSTANDING OF RECOMMENDATIONS TO INCREASE SAFETY IN THE HOME AND FALL PREVENTION. PATIENT/CAREGIVER WILL DEMONSTRATE IMPROVED ABILITY TO PERFORM ACTIVITIES OF DAILY LIVING TO IMPROVE SHOWER LEVEL ADL WHOLE MAINTAINING SHOULDER PRECAUTIONS. Reason for Visit INDEPENDENT IN THE COMMUNITY Encounters Start Date/Time End Date/Time Encounter Type Admission Type Attending [facility] Care Department Encounter ID Discharge Date Discharge Status Discharge Condition Discharge Reason Percent Goals Met 2022-10-06 00:00:00 2022-11-16 00:00:00 Outpatient TREVOR MOSELEY ([facility] [id number] 00:00:00 DISCHARGE TO HOME OR SELF CARE INDEPENDEN T IN THE COMMUNITY NO LONGER HOMEBOUND ( ONLY) 100.00
--- OUTSIDE RECORDS SUMMARY | 2024-05-02 08:08 | XMS_ITS | Clinical Summary ---
Author Organization Unknown Care Team Providers Care Cut Off Saw Grader Name Role Phone RUDY HARRIS MD Unavailable Unavailable MASHA JUSTIN OT Unavailable Unavailshawn MOSELEY ([facility]) C - PT, JOHN Unavailable Unavailable HOLLY ([facility]) [facility] - PT, ADI Unavailable Unavailable Payers Payer Name Policy Type Policy Number Effective Date Expira tion Date MEDICARE - NGS [place] - PD [id number] MEDICAID [facility] [id number] Problems Condition Name Condition Details Condition Category [...] [BMI] 38.0-38.9, ADULT Active 04-19 00:00: 00 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) USE OF ANTICOAGULAN TS Active 04-19 [...] 09-12 00:00: 00 10-06 00:00 :00 No [id number] Per instruc tions 3 (THREE) TIMES A DAY Per instructio ns 3 (THREE) TIMES A DAY (route: oral) Med Classific ation: Genitouri nary Therapy Graciela-tony 8.6 mg tablet 09-23 00:00: 00 10-06 00:00 :00 No [id number] Per instruc tions 2 (TWO) TIMES A DAY Per instructio ns 2 (TWO) TIMES A DAY (route: oral) Med Classific ation: Gastroint estinal Therapy Agents Vitamin D2 1,250 mcg (50,000 unit) capsule 09-18 00:00: 00 04-19 23:59 :00 No [id number] Per instruc tions ONCE A WEEK Per instructio ns ONCE A WEEK (route: oral) Med Classific ation: Electroly te Balance-N utritiona l Products sulfamethox azole 400 mg-trimetho prim 80 mg tablet 09-23 00:00: 00 10-06 00:00 :00 No [id number] Per instruc tions Per instructio ns (route: oral) Med Classific ation: Anti-Infe ctive Agents Virt-Caps 1 mg capsule 09-23 00:00: 00 10-06 00:00 :00 No [id number] Per instruc tions DAILY Per instructio ns DAILY (route: oral) Med Classific ation: Electroly te Balance-N utritiona l Products docusate sodium 100 mg capsule 09-23 00:00: 00 10-06 00:00 :00 No [id number] Per instruc tions 2 (TWO) TIMES A DAY Per instructio ns 2 (TWO) TIMES A DAY (route: oral) Med Classific ation: Gastroint estinal Therapy Agents Eliquis 5 mg tablet 09-23 00:00: 00 10-06 00:00 :00 No [id number] Per instruc tions TWO (2) TIMES A DAY Per instructio ns TWO (2) TIMES A DAY (route: oral) Med Classific ation: Hematolog ical Agents pantoprazol e 40 mg tablet,laverne yed release 09-23 00:00: 00 10-06 00:00 :00 No [id number] Per instruc tions Per instructio ns (route: oral) Med Classific ation: Gastroint estinal Therapy Agents amlodipine 10 mg tablet 10-06 00:00: 00 04-19 23:59 :00 No [id number] 1 tablet DAILY 1 tablet DAILY (route: oral) Med Classific ation: Cardiovas cular Therapy Agents Breo Ellipta 100 mcg-25 mcg/dose powder for inhalation 10-06 00:00: 00 04-19 23:59 :00 No [id number] 1 inhalat ion DAILY 1 inhalation DAILY (route: inhalation ) Med Classific ation: Respirato ry Therapy Agents calcitriol 0.5 mcg capsule 10-06 00:00: 00 04-19 23:59 :00 No [id number] 1 capsule DAILY 1 capsule DAILY (route: oral) Med Classific ation: Electroly te Balance-N utritiona l Products docusate sodium 100 mg tablet 10-06 00:00: 00 04-19 23:59 :00 No [id number] 1 tablet 2 TIMES DAILY 1 tablet 2 TIMES DAILY (route: oral) Med Classific ation: Gastroint estinal Therapy Agents doxycycline hyclate 100 mg capsule 10-06 00:00: 00 04-19 23:59 :00 No [id number] 1 capsule EVERY 12 HOURS 1 capsule EVERY 12 HOURS (route: oral) Med Classific ation: Anti-Infe ctive Agents Eliquis 2.5 mg tablet 10-06 00:00: 00 04-19 23:59 :00 No [id number] 1 tablet 2 TIMES DAILY 1 tablet 2 TIMES DAILY (route: oral) Med Classific ation: Hematolog ical Agents famotidine 20 mg tablet 10-06 00:00: 00 04-19 23:59 :00 No [id number] 1 tablet 2 TIMES DAILY 1 tablet 2 TIMES DAILY (route: oral) Med Classific ation: Gastroint estinal Therapy Agents mycophenola te mofetil 250 mg capsule 10-06 00:00: 00 04-19 23:59 :00 No [id number] 2 capsule EVERY 12 HOURS 2 capsule EVERY 12 HOURS (route: oral) Med Classific ation: Immunosup pressive Agents oxycodone-a cetaminophe n 5 mg-325 mg tablet 10-06 00:00: 00 04-19 23:59 :00 No [id number] 1 tablet EVERY 4 HOURS 1 tablet EVERY 4 HOURS (route: oral) Med Classific ation: Analgesic , Anti-infl ammatory or Antipyret ic pantoprazol e 40 mg tablet,laverne yed release 10-06 00:00: 00 04-19 23:59 :00 No [id number] 1 tablet DAILY 1 tablet DAILY (route: oral) Med Classific ation: Gastroint estinal Therapy Agents prednisone 5 mg tablet 10-06 00:00: 00 04-19 23:59 :00 No [id number] 1 tablet DAILY 1 tablet DAILY (route: oral) Med Classific ation: Endocrine Senna Laxative 8.6 mg tablet 10-06 00:00: 00 04-19 23:59 :00 No [id number] 2 tablet BEDTIME 2 tablet BEDTIME (route: oral) Med Classific ation: Gastroint estinal Therapy Agents sodium bicarbonate 650 mg tablet 10-06 00:00: 00 04-19 23:59 :00 No [id number] 2 tablet 3 TIMES A WEEK 2 tablet 3 TIMES A WEEK (route: oral) Med Classific ation: Gastroint estinal Therapy Agents tacrolimus 1 mg capsule, immediate-r elease 10-06 00:00: 00 04-19 23:59 :00 No [id number] 2 capsule 2 TIMES DAILY 2 capsule 2 TIMES DAILY (route: oral) Med Classific ation: Immunosup pressive Agents tacrolimus 5 mg capsule, immediate-r elease 10-06 00:00: 00 04-19 23:59 :00 No [id number] 2 capsule EVERY 12 HOURS 2 capsule [...] PATIENT IS CURRENTLY SPONGE BATH LEVEL WITH DOCK BUILDER ASSISTANCE. RESTING BLOOD PRESSURE 140 / 78 [...] PATIENT IS CURRENTLY SPONGE BATH LEVEL WITH DOCK BUILDER ASSISTANCE. RESTING BLOOD PRESSURE 140 / 78 [...] UNDERWENT OPERATION 09/29/[address] HARRIS AT [facility]. PATIENT HAS SIGNIFICANT PMH INCLUDING: AORTIC VALVE STENOSIS, ASTHMA, BORDERLINE PERSONALITY DISORDER, GERD, HYPERTENSION, HYPERLIPIDEMIA, OBESITY, OSTEOARTHRITIS, ANEMIA, SLEEP APNEA, BIPOLAR DISORDER, CHRONIC KIDNEY DISEASE REQUIRING RENAL TRANSPLANT IN 2020, POST TRANSPLANT DIABETES, CONGESTIVE HEART FAILURE, INTERSTITIAL LUNG DISEASE, UTERINE LEIOMYOMA, HISTORY OF BREAST REDUCTION SURGERY AND HISTORY OF KIDNEY TRANSPLANT. PATIENT'S CURRENT PRECAUTIONS: LEFT UPPER EXTREMITY [id number] IN THE SLING AT ALL TIMES /NO ACTIVE RANGE OF MOTION OR PENDULUM. PRI9R LEVEL OF FUNCTION: PATIENT LIVES IN A SECOND FLOOR SENIOR HOUSING APARTMENT WITH ELEVATOR ACCESS. PATIENT LIVES ALONE AND HAS ACCESS TO DOCK BUILDER SERVICES 7 DAYS A WEEK TWICE A [...] SLING AND HAD EXTRA SLINGS THAT THIS MANAGER INDUSTRIAL HAD HER WEAR DURING THE SHOWER AND [...] AND LAUNDRY AT THIS TIME PROVIDED BY DOCK BUILDER'S AND FRIENDS. SHE HAS HER MEDICATION SET UP IN A MEDICATION STEAM TENDER ALTHOUGH UNKNOWN WHO SETS THAT UP FOR [...] UNDERWENT OPERATION 09/29/[address] HARRIS AT [facility]. PATIENT HAS SIGNIFICANT PMH INCLUDING: AORTIC VALVE STENOSIS, ASTHMA, BORDERLINE PERSONALITY DISORDER, GERD, HYPERTENSION, HYPERLIPIDEMIA, OBESITY, OSTEOARTHRITIS, ANEMIA, SLEEP APNEA, BIPOLAR DISORDER, CHRONIC KIDNEY DISEASE REQUIRING RENAL TRANSPLANT IN 2020, POST TRANSPLANT DIABETES, CONGESTIVE HEART FAILURE, INTERSTITIAL LUNG DISEASE, UTERINE LEIOMYOMA, HISTORY OF BREAST REDUCTION SURGERY AND HISTORY OF KIDNEY TRANSPLANT. PATIENT'S CURRENT PRECAUTIONS: LEFT UPPER EXTREMITY [id number]/ IN THE SLING AT ALL TIMES /NO ACTIVE RANGE OF MOTION OR PENDULUM. PRI9R LEVEL OF FUNCTION: PATIENT LIVES IN A SECOND FLOOR SENIOR HOUSING APARTMENT WITH ELEVATOR ACCESS. PATIENT LIVES ALONE AND HAS ACCESS TO DOCK BUILDER SERVICES 7 DAYS A WEEK TWICE A [...] SLING AND HAD EXTRA SLINGS THAT THIS MANAGER INDUSTRIAL HAD HER WEAR DURING THE SHOWER AND [...] AND LAUNDRY AT THIS TIME PROVIDED BY DOCK BUILDER'S AND FRIENDS. SHE HAS HER MEDICATION SET UP IN A MEDICATION STEAM TENDER ALTHOUGH UNKNOWN WHO SETS THAT UP FOR [...] End Date/Time Encounter Type Admission Type Attending [facility] Care Department Encounter ID Discharge Date Discharge Status Discharge Condition Discharge Reason Percent Goals Met 2022-10-06 00:00:00 2022-11-16 00:00:00 Outpatient TREVOR MOSELEY ([facility] [id number] 00:00:00 DISCHARGE TO HOME OR SELF CARE INDEPENDEN T IN THE COMMUNITY NO LONGER HOMEBOUND ( ONLY) 100.00
--- NOTE | 2024-05-02 08:11 | MHC.OFFWIV ---
Intake Vital Signs 05/02/24 08:12 Height 5 ft 6 in Weight 207 lb BMI 33.4 BP 120/76 Blood Pressure Location Lt brachial Position Sitting Pulse 90 Pulse Source Pulse Oximeter Temp 98.8 F Temp Source Oral Pulse Oximetry (%) 97 Oxygen Delivery Method Room Air Intake Visit Reasons: EP cough, mucus, sore throat Intake Note: Pt is here today for a walk in visit. Pt c/o cough congestion mucus sore throat which started about 3 days. Patient Tobacco Use Status: Former Tobacco user Allergies lisinopril [LISINOPRIL] Allergy (Intermediate, Verified 02/09/24 09:24) EYES SWELL SHUT, angioedema, angioedema tramadol [TRAMADOL] Allergy (Intermediate, Verified 02/09/24 09:24) HIVES piperacillin [Zosyn] Allergy (Mild, Verified 02/09/24 09:24) rash cefazolin Allergy (Unknown, Verified 02/09/24 09:24) Unknown hydrocodone [From VICODIN] Allergy (Unknown, Verified 02/09/24 09:24) UNKNOWN ibuprofen [From Motrin] Allergy (Unknown, Verified 02/09/24 09:24) Unknown shellfish derived Allergy (Unknown, Verified 02/09/24 09:24) Unknown Sulfa (Sulfonamide Antibiotics) [SULFA (SULFONAMIDE ANTIBIOTICS)] Allergy (Unknown, Verified 02/09/24 09:24) UNKNOWN vancomycin Allergy (Unknown, Verified 02/09/24 09:24) rash azithromycin Adverse Reaction (Intermediate, Verified 02/09/24 09:24) dizziness/AVERY HPI HPI Comments History of Present Illness Details This is a 48-year-old female with a past medical history of pulmonary emboli no longer anticoagulated, asthma, ESRD not currently being dialyzed and hypertension presenting for evaluation of sore throat, cough and shortness of breath with subjective fevers that she has had for the past 3 days. Patient states, my building has COVID. Patient states that she took a COVID test at home which was negative. Patient has not been taking any medications for treatment of her symptoms and has not been using her albuterol inhaler with increased frequency. Patient denies any headaches, lightheadedness, otalgia, chest pain, nausea, vomiting or abdominal pain. [facility] Medical History History of pulmonary embolism Chronic kidney disease Ankylosing spondylitis of lumbar region Right lumbar radiculopathy Surgical History S/P kidney transplant Status post dialysis Hx of bilateral breast reduction surgery Family History Mother No problems noted. Father No problems noted. Brother Substance abuse Social History Household Members: None Housing: Apartment Are you a primary janitor caretaker to a significant other at home: No Do you presently have visiting nurse or other home services: No Alcohol intake: never Patient Tobacco Use Status: Former Tobacco user Years Smoked: 15 e-Cigarette/Vaping Use: Never Used Second Hand Smoke Exposure: No Advance Directives Date on File: 02/26/20 service: No Current occupational status: disabled Gender identity: Female Cognitive needs: No Hearing needs: No Vision needs: Yes (Glasses) Female Reproductive History Menstrual Age of Menarche: 17 Review of Systems Const All systems reviewed & are unremarkable except as noted in HPI and below Reports as per HPI Eyes Reports as per HPI ENT Reports no additional complaints, Reports as per HPI, Denies otalgia, Reports sore throat and Denies throat swelling Card Reports no additional complaints and Reports dyspnea Resp Reports cough, Denies hemoptysis, Reports dyspnea and Denies wheezing GI Reports no additional complaints Reports no additional complaints Musc Reports no additional complaints Skin/Breast Reports system reviewed and no additional complaints, except as documented Neuro Reports no additional complaints Psych Reports no additional complaints Endo Reports no additional complaints Chris/Lymph Reports no additional complaints Aller/Immun Reports no additional complaints, Denies throat swelling and Denies wheezing Physical Exam Vital Signs: Last Vital Signs Pulse 90 05/02/24 08:12 BP 120/76 05/02/24 08:12 Pulse Ox 97 05/02/24 08:12 Oxygen Delivery Method Room Air 05/02/24 08:12 BMI result Body Mass Index 33.4 Const General: cooperative, healthy appearing, comfortable and no acute distress Nutritional Appearance: average body habitus Orientation/consciousness: patient oriented x3 Limitations: no limitations HEENT Head: Yes normal to inspection Ears: hearing grossly normal bilaterally, external ears normal and TM's abnormal bilaterally (occluded by cerumen bilaterally) General nose exam: Normal external nose present Face and sinus: Yes normal facial exam and Yes sinuses nontender Mouth: Normal oral and palatal mucosa present and moist mucous membranes Throat: Yes posterior oropharynx normal (There is no edema, erythema or exudates of the posterior oropharynx) Eyes General: appearance normal, both eyes and all related structures Resp Effort & Inspection: normal respiratory effort, able to speak in complete sentences, no audible wheezes, no cough and no respiratory distress Auscultation: clear to auscultation bilaterally Cardio Rate: regular rate Rhythm: regular rhythm Skin General skin exam: no rashes or lesions noted Neuro General: patient oriented x3 Psych Appearance: grossly normal Mental Status: mental status grossly normal Insight: Good insight present (Psych) Judgement: Good judgement present (Psych) Assessment & Plan Assessment & Plan (1) Cerumen impaction: Comment: Cerumen partially removed by biomedical engineering supervisor; TMs clear bilaterally Code(s): H61.20 - Impacted cerumen, unspecified ear Qualifiers: Laterality: bilateral Qualified Code(s): H61.23 - Impacted cerumen, bilateral Plan: Debrox OTC as needed for cerumen impaction (2) Acute upper respiratory infection: Comment: SARS panel is ordered and results are pending at this time Code(s): J06.9 - Acute upper respiratory infection, unspecified Plan: Tylenol as needed for discomfort, increase fluids and rest as tolerated. Orders: Orders SARS-CoV2/FLU/RSV Today J06.9 - Acute upper respiratory infection, unspecified Coding Level of Care Code Est Pt Level 3 (60194) Diagnoses Bilateral impacted cerumen H61.23 Laterality: bilateral Acute upper respiratory infection J06.9 Time Spent (min) 20
[2024-05-02 08:12] VITALS: BP 120/76; PULSE 90; TEMP 37.1; O2SAT 97; BMI 33.4
== END 2024-05-02 08:43 | disposition home or self-care (01) ==
PROVIDERS: PCP Physician Assistant; Visit Provider Physician Assistant
DX: H61.23 Impacted cerumen, bilateral (principal); J06.9 Acute upper respiratory infection, unspecified

== ENCOUNTER 2024-05-02 09:59 | Outpatient (REF) | payer MEDICARE, MEDICAID, SELFPAY ==
[2024-05-02 11:00] LABS: Influenza A PCR NEGATIVE (Negative); Influenza B PCR NEGATIVE (Negative); Resp Syncy Virus RNA Qual PCR NEGATIVE (Negative); SARS COV2 PCR INHOUSE NEGATIVE (Negative)
== END 2024-05-02 10:00 | disposition home or self-care (01) ==
LOC: HO.LNP 09:59
PROVIDERS: Visit Provider Physician Assistant
DX: J06.9 Acute upper respiratory infection, unspecified (principal); H61.23 Impacted cerumen, bilateral; I12.0 Hypertensive chronic kidney disease with stage 5 chronic kidney disease or end stage renal disease; N18.6 End stage renal disease; Z86.711 Personal history of pulmonary embolism
CPT/HCPCS: 0241U; 99212

== ENCOUNTER 2024-05-06 08:36 | Emergency (ER) | payer MEDICARE, MEDICAID, SELFPAY ==
--- NOTE | ~2024-05-06 | XR_ITS ---
CLINICAL HISTORY: cough, body aches 2 views chest Comparison: CR/SR - XR CHEST 1V - 11/11/21 15:02 EDT Findings: Cardiac and mediastinal contours are normal. Mild interstitial prominence with scattered peribronchial thickening. No focal consolidation. No effusion. No pneumothorax. No acute osseous finding. Impression: Mild interstitial prominence with scattered peribronchial thickening. No focal consolidation. This document has been electronically signed by: Christopher Ross MD on 05/06/2024 10:05:28
[2024-05-06 09:03] VITALS: BP 142/61; PULSE 86; RESP 16; TEMP 36.8; O2SAT 100; BMI 34.0
--- OUTSIDE RECORDS SUMMARY | 2024-05-06 09:06 | XMS_ITS | Clinical Summary ---
Author Organization Unknown Care Team Providers Care Antique Clock Repairer Name Role Phone RUDY HARRIS MD Unavailable Unavailable MASHA JUSTIN OT Unavailable Unavailshawn MOSELEY ([facility] [place]) C - PT, JOHN Unavailable Unavailable HOLLY ([facility] [place]) [facility] [place] - PT, ADI Unavailable Unavailable Payers Payer Name Policy Type Policy Number Effective Date Expira tion Date [place] [id number] MEDICAID [facility] [id number] Problems Condition Name Condition Details Condition Category [...] [BMI] 38.0-38.9, ADULT Active 04-19 00:00: 00 FLAP MAKER (CURRENT) USE OF ANTICOAGULAN TS Active 04-19 [...] 09-12 00:00: 00 10-06 00:00 :00 No [id number] Per instruc tions 3 (THREE) TIMES A DAY Per instructio ns 3 (THREE) TIMES A DAY (route: oral) Med Classific ation: Genitouri nary Therapy Graciela-tony 8.6 mg tablet 09-23 00:00: 00 10-06 00:00 :00 No [id number] Per instruc tions 2 (TWO) TIMES A DAY Per instructio ns 2 (TWO) TIMES A DAY (route: oral) Med Classific ation: Gastroint estinal Therapy Agents Vitamin D2 1,250 mcg (50,000 unit) capsule 09-18 00:00: 00 04-19 23:59 :00 No [id number] Per instruc tions ONCE A WEEK Per instructio ns ONCE A WEEK (route: oral) Med Classific ation: Electroly te Balance-N utritiona l Products sulfamethox azole 400 mg-trimetho prim 80 mg tablet 09-23 00:00: 00 10-06 00:00 :00 No [id number] Per instruc tions Per instructio ns (route: oral) Med Classific ation: Anti-Infe ctive Agents Virt-Caps 1 mg capsule 09-23 00:00: 00 10-06 00:00 :00 No [id number] Per instruc tions DAILY Per instructio ns DAILY (route: oral) Med Classific ation: Electroly te Balance-N utritiona l Products docusate sodium 100 mg capsule 09-23 00:00: 00 10-06 00:00 :00 No [id number] Per instruc tions 2 (TWO) TIMES A DAY Per instructio ns 2 (TWO) TIMES A DAY (route: oral) Med Classific ation: Gastroint estinal Therapy Agents Eliquis 5 mg tablet 09-23 00:00: 00 10-06 00:00 :00 No [id number] Per instruc tions TWO (2) TIMES A DAY Per instructio ns TWO (2) TIMES A DAY (route: oral) Med Classific ation: Hematolog ical Agents pantoprazol e 40 mg tablet,laverne yed release 09-23 00:00: 00 10-06 00:00 :00 No [id number] Per instruc tions Per instructio ns (route: oral) Med Classific ation: Gastroint estinal Therapy Agents amlodipine 10 mg tablet 10-06 00:00: 00 04-19 23:59 :00 No [id number] 1 tablet DAILY 1 tablet DAILY (route: oral) Med Classific ation: Cardiovas cular Therapy Agents Breo Ellipta 100 mcg-25 mcg/dose powder for inhalation 10-06 00:00: 00 04-19 23:59 :00 No [id number] 1 inhalat ion DAILY 1 inhalation DAILY (route: inhalation ) Med Classific ation: Respirato ry Therapy Agents calcitriol 0.5 mcg capsule 10-06 00:00: 00 04-19 23:59 :00 No [id number] 1 capsule DAILY 1 capsule DAILY (route: oral) Med Classific ation: Electroly te Balance-N utritiona l Products docusate sodium 100 mg tablet 10-06 00:00: 00 04-19 23:59 :00 No [id number] 1 tablet 2 TIMES DAILY 1 tablet 2 TIMES DAILY (route: oral) Med Classific ation: Gastroint estinal Therapy Agents doxycycline hyclate 100 mg capsule 10-06 00:00: 00 04-19 23:59 :00 No [id number] 1 capsule EVERY 12 HOURS 1 capsule EVERY 12 HOURS (route: oral) Med Classific ation: Anti-Infe ctive Agents Eliquis 2.5 mg tablet 10-06 00:00: 00 04-19 23:59 :00 No [id number] 1 tablet 2 TIMES DAILY 1 tablet 2 TIMES DAILY (route: oral) Med Classific ation: Hematolog ical Agents famotidine 20 mg tablet 10-06 00:00: 00 04-19 23:59 :00 No [id number] 1 tablet 2 TIMES DAILY 1 tablet 2 TIMES DAILY (route: oral) Med Classific ation: Gastroint estinal Therapy Agents mycophenola te mofetil 250 mg capsule 10-06 00:00: 00 04-19 23:59 :00 No [id number] 2 capsule EVERY 12 HOURS 2 capsule EVERY 12 HOURS (route: oral) Med Classific ation: Immunosup pressive Agents oxycodone-a cetaminophe n 5 mg-325 mg tablet 10-06 00:00: 00 04-19 23:59 :00 No [id number] 1 tablet EVERY 4 HOURS 1 tablet EVERY 4 HOURS (route: oral) Med Classific ation: Analgesic , Anti-infl ammatory or Antipyret ic pantoprazol e 40 mg tablet,laverne yed release 10-06 00:00: 00 04-19 23:59 :00 No [id number] 1 tablet DAILY 1 tablet DAILY (route: oral) Med Classific ation: Gastroint estinal Therapy Agents prednisone 5 mg tablet 10-06 00:00: 00 04-19 23:59 :00 No [id number] 1 tablet DAILY 1 tablet DAILY (route: oral) Med Classific ation: Endocrine Senna Laxative 8.6 mg tablet 10-06 00:00: 00 04-19 23:59 :00 No [id number] 2 tablet BEDTIME 2 tablet BEDTIME (route: oral) Med Classific ation: Gastroint estinal Therapy Agents sodium bicarbonate 650 mg tablet 10-06 00:00: 00 04-19 23:59 :00 No [id number] 2 tablet 3 TIMES A WEEK 2 tablet 3 TIMES A WEEK (route: oral) Med Classific ation: Gastroint estinal Therapy Agents tacrolimus 1 mg capsule, immediate-r elease 10-06 00:00: 00 04-19 23:59 :00 No [id number] 2 capsule 2 TIMES DAILY 2 capsule 2 TIMES DAILY (route: oral) Med Classific ation: Immunosup pressive Agents tacrolimus 5 mg capsule, immediate-r elease 10-06 00:00: 00 04-19 23:59 :00 No [id number] 2 capsule EVERY 12 HOURS 2 capsule [...] PATIENT IS CURRENTLY SPONGE BATH LEVEL WITH SPIN TABLE OPERATOR ASSISTANCE. RESTING BLOOD PRESSURE 140 / 78 [...] PATIENT IS CURRENTLY SPONGE BATH LEVEL WITH SPIN TABLE OPERATOR ASSISTANCE. RESTING BLOOD PRESSURE 140 / 78 [...] UNDERWENT OPERATION 09/29/[address] HARRIS AT [facility]. PATIENT HAS SIGNIFICANT PMH INCLUDING: AORTIC VALVE STENOSIS, ASTHMA, BORDERLINE PERSONALITY DISORDER, GERD, HYPERTENSION, HYPERLIPIDEMIA, OBESITY, OSTEOARTHRITIS, ANEMIA, SLEEP APNEA, BIPOLAR DISORDER, CHRONIC KIDNEY DISEASE REQUIRING RENAL TRANSPLANT IN 2020, POST TRANSPLANT DIABETES, CONGESTIVE HEART FAILURE, INTERSTITIAL LUNG DISEASE, UTERINE LEIOMYOMA, HISTORY OF BREAST REDUCTION SURGERY AND HISTORY OF KIDNEY TRANSPLANT. PATIENT'S CURRENT PRECAUTIONS: LEFT UPPER EXTREMITY [id number]/ IN THE SLING AT ALL TIMES /NO ACTIVE RANGE OF MOTION OR PENDULUM. PRI9R LEVEL OF FUNCTION: PATIENT LIVES IN A SECOND FLOOR SENIOR HOUSING APARTMENT WITH ELEVATOR ACCESS. PATIENT LIVES ALONE AND HAS ACCESS TO SPIN TABLE OPERATOR SERVICES 7 DAYS A WEEK TWICE A [...] SLING AND HAD EXTRA SLINGS THAT THIS BRUSH MAKER MACHINE HAD HER WEAR DURING THE SHOWER AND [...] AND LAUNDRY AT THIS TIME PROVIDED BY SPIN TABLE OPERATOR'S AND FRIENDS. SHE HAS HER MEDICATION SET UP IN A MEDICATION ALGORITHM DESIGN ENGINEER ALTHOUGH UNKNOWN WHO SETS THAT UP FOR [...] UNDERWENT OPERATION 09/29/[address] HARRIS AT [facility]. PATIENT HAS SIGNIFICANT PMH INCLUDING: AORTIC VALVE STENOSIS, ASTHMA, BORDERLINE PERSONALITY DISORDER, GERD, HYPERTENSION, HYPERLIPIDEMIA, OBESITY, OSTEOARTHRITIS, ANEMIA, SLEEP APNEA, BIPOLAR DISORDER, CHRONIC KIDNEY DISEASE REQUIRING RENAL TRANSPLANT IN 2020, POST TRANSPLANT DIABETES, CONGESTIVE HEART FAILURE, INTERSTITIAL LUNG DISEASE, UTERINE LEIOMYOMA, HISTORY OF BREAST REDUCTION SURGERY AND HISTORY OF KIDNEY TRANSPLANT. PATIENT'S CURRENT PRECAUTIONS: LEFT UPPER EXTREMITY [id number]/ IN THE SLING AT ALL TIMES /NO ACTIVE RANGE OF MOTION OR PENDULUM. PRI9R LEVEL OF FUNCTION: PATIENT LIVES IN A SECOND FLOOR SENIOR HOUSING APARTMENT WITH ELEVATOR ACCESS. PATIENT LIVES ALONE AND HAS ACCESS TO SPIN TABLE OPERATOR SERVICES 7 DAYS A WEEK TWICE A [...] SLING AND HAD EXTRA SLINGS THAT THIS BRUSH MAKER MACHINE HAD HER WEAR DURING THE SHOWER AND [...] AND LAUNDRY AT THIS TIME PROVIDED BY SPIN TABLE OPERATOR'S AND FRIENDS. SHE HAS HER MEDICATION SET UP IN A MEDICATION ALGORITHM DESIGN ENGINEER ALTHOUGH UNKNOWN WHO SETS THAT UP FOR [...] End Date/Time Encounter Type Admission Type Attending [facility] Care Department Encounter ID Discharge Date Discharge Status Discharge Condition Discharge Reason Percent Goals Met 2022-10-06 00:00:00 2022-11-16 00:00:00 Outpatient TREVOR MOSELEY ([facility] [place])[facility] [id number] 8516-07-31 00:00:00 DISCHARGE TO HOME OR SELF CARE INDEPENDEN T IN THE COMMUNITY NO LONGER HOMEBOUND ( ONLY) 100.00
--- NOTE | 2024-05-06 09:28 | ED.URI ---
HPI - URI/Sore Throat General Chief Complaint: Upper Respiratory Symptoms Stated Complaint: sore throat chest pain Time Seen by Provider: 05/06/24 09:09 Source: patient Mode of arrival: ambulatory Limitations: no limitations History of Present Illness ED Provider: Doris De Anda NP HPI Narrative: Patient is a 48-year-old female who presents emergency department for evaluation. She endorses having 11 days with a sore throat, cough, body aches. Reports 6 days ago she presented to an urgent care and was tested for COVID, flu, and RSV which she states was negative. She was using jutq-swb-oyuqexx remedies in addition to Tylenol without much improvement. Denies fevers, chills, headache, dizziness, neck pain, neck stiffness, chest pain, shortness of breath, difficulty breathing, nausea, vomiting, abdominal pain, numbness or tingling of the extremities, genitourinary symptoms. Related Data Home Medications ?Medication ?Instructions ?Recorded ?Confirmed amlodipine 10 mg tablet 1 tab PO DAILY 11/30/20 02/09/24 docusate sodium 100 mg capsule 1 cap PO BID 11/30/20 02/09/24 (Dulcolax Stool Softener (docusate)) mycophenolate mofetil 250 mg 500 mg PO BID 12/19/20 02/09/24 capsule (CellCept) sennosides 8.6 mg tablet (senna) 8.6 mg PO BID 12/19/20 02/09/24 etonogestrel 68 mg subdermal 68 mg subdermal DAILY 06/18/21 02/09/24 implant (Nexplanon) famotidine 20 mg tablet (Pepcid) 20 mg PO DAILY 07/30/21 02/09/24 tacrolimus 1 mg capsule, 3 mg PO Q12H 07/30/21 02/09/24 immediate-release tacrolimus 5 mg capsule, 10 mg PO Q12H 07/30/21 02/09/24 immediate-release blood sugar diagnostic (DindongTouch #10 ea 05/26/23 02/09/24 Verio test strips) lancets 33 gauge (DindongTouch Delyolanda #100 ea 05/26/23 02/09/24 Plus Lancet) pantoprazole 40 mg tablet,delayed 40 mg PO DAILY 05/26/23 02/09/24 release valganciclovir 450 mg tablet mg PO 05/26/23 02/09/24 tirzepatide 15 mg/0.5 mL mg subcut 06/16/23 02/09/24 subcutaneous pen injector (Lubna) Previous Rx's ?Medication ?Instructions ?Recorded albuterol sulfate 2.5 mg/3 mL 2.5 mg (3 mL) inhalation Q6H PRN 03/05/22 (0.083 %) solution for nebulization shortness of breath or wheezing 15 days #180 mL nebulizers (AeroEclipse II #1 ea 03/05/22 Nebulizer) albuterol sulfate 90 mcg/actuation 1 inh inhalation QID PRN shortness 05/26/23 aerosol inhaler of breath or wheezing 6 months #6.7 grams acetaminophen 650 mg 650 mg PO Q12H 30 days #60 tabs 12/07/23 tablet,extended release gentamicin 0.3 % eye drops 1 drp ophthalmic (eye) Q8H 5 days 02/09/24 #5 mL benzocaine 15 mg-menthol 2.6 mg 1 sammie mucous membrane Q2-4H PRN 05/06/24 lozenges (Cepacol Sore Throat sore throat #16 ea (benzocaine-menthol)) guaifenesin 200 mg/5 mL oral liquid 200 mg (5 mL) PO Q4H PRN cough 05/06/24 #118 mL Allergies Allergy/AdvReac Type Severity Reaction Status Date / Time lisinopril [LISINOPRIL] Allergy Intermediate EYES SWELL Verified 05/06/24 09:04 SHUT, angioedema, angioedema tramadol [TRAMADOL] Allergy Intermediate HIVES Verified 05/06/24 09:04 piperacillin [Zosyn] Allergy Mild rash Verified 05/06/24 09:04 cefazolin Allergy Unknown Unknown Verified 05/06/24 09:04 hydrocodone [From VICODIN] Allergy Unknown UNKNOWN Verified 05/06/24 09:04 ibuprofen [From Motrin] Allergy Unknown Unknown Verified 05/06/24 09:04 shellfish derived Allergy Unknown Unknown Verified 05/06/24 09:04 Sulfa (Sulfonamide Allergy Unknown UNKNOWN Verified 05/06/24 09:04 Antibiotics) [SULFA (SULFONAMIDE ANTIBIOTICS)] vancomycin Allergy Unknown rash Verified 05/06/24 09:04 azithromycin AdvReac Intermediate dizziness/A Verified 05/06/24 09:04 KI Review of Systems Review of Systems: Yes all other systems are reviewed and are negative [facility] Past Medical History Attestation statement: The following information was validated with the patient. Source: old records reviewed Medical History History of pulmonary embolism Chronic kidney disease Ankylosing spondylitis of lumbar region Right lumbar radiculopathy Surgical History S/P kidney transplant Status post dialysis Hx of bilateral breast reduction surgery Family History Family History Mother No problems noted. Father No problems noted. Brother Substance abuse Social History Social History Household Members: None Housing: Apartment Are you a primary career coach to a significant other at home: No Do you presently have visiting nurse or other home services: No Alcohol intake: never Patient Tobacco Use Status: Former Tobacco user Years Smoked: 15 e-Cigarette/Vaping Use: Never Used Second Hand Smoke Exposure: No Advance Directives: No Advance Directives Information Provided: No Advance Directives Date on File: 02/26/20 service: No Current occupational status: disabled Gender identity: Female Cognitive needs: No Hearing needs: No Vision needs: Yes (Glasses) Physical Exam Vital Signs: Vital Signs: Last Vital Signs Temp 98.3 F 05/06/24 11:52 Pulse 86 05/06/24 11:52 Resp 18 05/06/24 11:52 BP 110/72 05/06/24 11:52 Pulse Ox 100 05/06/24 11:52 O2 Del Method Room Air 05/06/24 11:52 BMI result Body Mass Index 34.0 Appearance: Alert.?Oriented to person, place and time. No acute distress.?Normal affect. Eyes: Pupils equal, round and reactive to light.? ENT: TM normal bilaterally. Pharynx erythematous without exudates, tonsillar hyper atrophy. Uvula is midline. No trismus. No drooling. Neck: Normal inspection.? Neck supple.??Positive anterior cervical adenopathy CVS: Heart sounds normal. Normal heart rate and rhythm.? Pulses normal.?? Respiratory: No respiratory distress.? Lung sounds clear to auscultation bilaterally?? Abdomen: Soft and non-tender. Normoactive bowel sounds. Skin: Skin warm and dry.? Normal skin color.? ? Extremities: No lower extremity edema.? Neuro: Moves all extremities spontaneously. Sensation intact bilaterally. No motor deficits. Ambulates with normal steady gait. Medical Decision Making Medical Decision Making [facility] Narrative: Patient is a 48-year-old female with past medical history of end-stage renal disease status post renal transplant in 2020, pulmonary embolism, ankylosing spondylitis of the lumbar spine, lumbar radiculopathy, presenting for evaluation of cough sore throat and body aches. COVID-19 testing is positive. Discussed use of Paxlovid indications for use, medication interactions, contraindications, used shared decision-making, patient declined treatment. Influenza/RSV/group a strep testing is negative. Exam not consistent with RPA/AIRCRAFT REFUELER. Chest x-ray without evidence of pneumonia. At this time history and physical exam not consistent with ACS/PE. Well-appearing, nontoxic, afebrile, no tachycardia or tachypnea/hypoxia. Speaking clear full sentences, ambulatory with steady gait. Discussed conservative treatment including rest, hydration, Tylenol/ibuprofen as needed for fever and body aches, saline nasal spray, humidifier, prnj-xbx-opqkedl cold medication. Advised to follow-up with primary care provider as needed, discussed reasons to return back to the emergency department. All questions were answered. Patient discharged home in stable condition. Differential Diagnosis Differential Diagnoses: The differential diagnosis associated with the presentation includes ( See narrative above) Admission/Observation Consideration of admission/observation: Escalation of care including admission/observation considered ( see narrative above) Lab Data [facility] Lab Attestation statement: I reviewed the patient's lab results. ( see narrative above) CBC is without leukocytosis anemia or thrombocytopenia. No significant electrolyte derangement. No AVERY. LFTs within normal range. 05/06/24 10:44 05/06/24 10:44 Labs: Lab Results 05/06/24 05/06/24 Range/Units 09:18 10:44 WBC 7.7 (4.8-10.8) X10*3/uL RBC 4.98 (4.20-5.50) X10*6/uL Hgb 13.6 (12.0-16.0) g/dl Hct 41.7 (37.0-47.0) % MCV 83.7 (80.0-98.0) fL MCH 27.3 (27.0-33.0) pg MCHC 32.6 (31.0-35.0) g/dl RDW 14.5 (11.0-16.0) % Plt Count 310 (160-400) X10*3/uL MPV 10.4 (9.4-12.3) fL Immature Gran % (Auto) 0.3 (0.0-0.4) % Neut % (Auto) 78.3 H (45-73) % Lymph % (Auto) 9.0 L (20-40) % Washburn % (Auto) 7.9 (2-11) % Eos % (Auto) 4.0 (0-4) % Baso % (Auto) 0.5 (0-2) % Lymph # (Auto) 0.7 L (1.2-4.9) X10*3/uL Washburn # (Auto) 0.6 (0.1-1.2) X10*3/uL Eos # (Auto) 0.3 (0.0-0.4) X10*3/uL Baso # (Auto) 0.0 (0.0-0.2) X10*3/uL Abs Immat Gran (auto) 0.02 (0.00-0.03) X10*3/uL Absolute Neuts (auto) 6.0 (2.0-8.3) x10*3/uL Absolute Nucleated RBC 0.000 (0.0-0.012) X10*3/uL Nucleated RBC % (auto) 0.0 (0.0-0.2) /100WBC Sodium 138 (135-145) mmol/L Potassium 3.8 (3.3-5.1) mmol/L Chloride 111 H (96-108) mmol/L Carbon Dioxide 18 L (22-29) mmol/L Anion Gap 13 (12-20) BUN 19 H (9-16) mg/dL Creatinine 1.12 (0.5-1.4) mg/dL Estim Creat Clear Calc 72.3 Estimated GFR 52 Random Glucose 86 (60-115) mg/dL Calcium 9.6 (8.4-10.2) mg/dL Total Bilirubin 0.3 (0.0-1.0) mg/dL AST 23 (5-31) U/L ALT 20 (0-31) U/L Alkaline Phosphatase 117 (39-117) U/L Total Protein 9.2 H (6.5-8.0) g/dL Albumin 4.1 (3.5-5.0) g/dL Monoscreen Negative (Negative) Influenza Type A (PCR) NEGATIVE (Negative) Influenza Type B (PCR) NEGATIVE (Negative) RSV RNA Qual (PCR) NEGATIVE (Negative) SARS-CoV-2 RNA (RT-PCR) POSITIVE A (Negative) S. pyogenes GrpA KALLIE Negative (Negative) Radiology Impression Discussion of test interpretation with radiology: I have reviewed the radiologist's reading. Radiologist Impression: 2 views chest Comparison: CR/SR - XR CHEST 1V - 11/11/21 15:02 EDT Findings: Cardiac and mediastinal contours are normal. Mild interstitial prominence with scattered peribronchial thickening. No focal consolidation. No effusion. No pneumothorax. No acute osseous finding. Impression: Mild interstitial prominence with scattered peribronchial thickening. No focal consolidation. External Record Review External record reviewed: Outpatient record Prescription Management I considered prescription management with: Pain Medication ( acetaminophen/ibuprofen) Discharge Plan Discharge Clinical Impression: COVID-19 Patient Disposition: Home, Self-Care Instructions: COVID-19 (Coronavirus Disease 2019) (ED) Additional Instructions: You have tested positive for COVID-19 today Testing today for flu, RSV, and strep throat were negative. You were also screened for mononucleosis which was a viral illness that can result in sore throat and fatigue/body aches this was negative. Chest x-ray does not show evidence of pneumonia. You also had blood work obtained your blood counts are normal you are not anemic, your electrolytes and kidney function are without abnormality. Be sure to rest, stay well hydrated drinking plenty of fluids, eat small frequent meals. Tylenol/ibuprofen can be used as needed for fever/pain. Qkoq-rga-ynotage cold medications may be helpful as well for symptoms. Saline nasal spray, humidifier may be helpful for nasal congestion. I have sent prescriptions to the pharmacy to help with her sore throat as well as cough. You may return to the emergency department with any new or worsening symptoms or concerns. Follow-up with your primary care provider as needed. Should remain out of school/ work until symptoms have resolved and have been without a fever for 24 hours without the use of Tylenol or ibuprofen. Prescriptions: New guaifenesin 200 mg/5 mL liquid 200 mg PO Q4H PRN (Reason: cough) Qty: 118 0RF Cepacol Sore Throat (andres-men) 15-2.6 mg lozenge 1 sammie mucous membrane Q2-4H PRN (Reason: sore throat) Qty: 16 0RF No Action (DME) nebulizers [AeroEclipse II Nebulizer] Misc See Rx Instructions .Route Qty: 1 0RF Rx Instructions: As directed albuterol sulfate 2.5 mg /3 mL (0.083 %) solution for nebulization 2.5 mg inhalation Q6H PRN (Reason: shortness of breath or wheezing) 15 Days Qty: 180 0RF amlodipine 10 mg tablet 1 tab PO DAILY docusate sodium [Dulcolax Stool Softener (dss)] 100 mg capsule 1 cap PO BID mycophenolate mofetil [CellCept] 250 mg capsule 500 mg PO BID sennosides [senna] 8.6 mg tablet 8.6 mg PO BID tacrolimus 1 mg capsule 3 mg PO Q12H tacrolimus 5 mg capsule 10 mg PO Q12H acetaminophen 650 mg tablet extended release 650 mg PO Q12H 30 Days Qty: 60 0RF (DME) lancets [OneTouch Delica Plus Lancet] [facility] See Rx Instructions .ROUTE TID Qty: 100 Rx Instructions: As directed (DME) OneTouch Verio test strips Strip See Rx Instructions .ROUTE TID Qty: 10 Rx Instructions: As directed valganciclovir 450 mg tablet PO pantoprazole 40 mg tablet,delayed release (DR/EC) 40 mg PO DAILY albuterol sulfate 90 mcg/actuation HFA aerosol inhaler 1 inh inhalation QID PRN (Reason: shortness of breath or wheezing) 180 Days Qty: 6.7 0RF Mounjaro 15 mg/0.5 mL pen injector subcut Nexplanon 68 mg implant 68 mg subdermal DAILY famotidine [Pepcid] 20 mg tablet 20 mg PO DAILY gentamicin 0.3 % drops 1 drp ophthalmic (eye) Q8H 5 Days Qty: 5 0RF Referrals: Alexx Baum PA-C [Primary Care Provider] - Print Language: Vincentian
[2024-05-06 09:55] VITALS: BP 125/79; PULSE 81; RESP 17; TEMP 36.6; O2SAT 99
[2024-05-06 10:14] LABS: IDNOW Serial# 58CA691E; Strep A Nucleic Acid Negative (Negative)
[2024-05-06 10:49] LABS: MANUAL DIFF FLAG NO
[2024-05-06 10:52] LABS: Basophils Percent Auto 0.5 % (0-2); Eosinophils Absolute Auto 0.3 X10*3/uL (0.0-0.4); Hematocrit 41.7 % (37.0-47.0); Hemoglobin 13.6 g/dl (12.0-16.0); Imm Gran Abs Auto 0.02 X10*3/uL (0.00-0.03); Imm Gran Pct Auto 0.3 % (0.0-0.4); Lymphocytes Absolute Auto 0.7 X10*3/uL (1.2-4.9); Mean Corpuscular HGB Conc 32.6 g/dl (31.0-35.0); Mean Corpuscular Hemoglobin 27.3 pg (27.0-33.0); Mean Corpuscular Volume 83.7 fL (80.0-98.0); Mean Platelet Volume 10.4 fL (9.4-12.3); Monocytes Absolute Auto 0.6 X10*3/uL (0.1-1.2); Monocytes Percent Auto 7.9 % (2-11); Neutrophils Percent Auto 78.3 % (45-73); Platelet Count 310 X10*3/uL (160-400); Red Blood Count 4.98 X10*6/uL (4.20-5.50); Red Cell Distribution Width 14.5 % (11.0-16.0); White Blood Count 7.7 X10*3/uL (4.8-10.8)
[2024-05-06 11:06] LABS: Alanine Aminotransferase 20 U/L (0-31); Albumin Level 4.1 g/dL (3.5-5.0); Alkaline Phosphatase 117 U/L (39-117); Anion Gap 13 (12-20); Aspartate Amino Transferase 23 U/L (5-31); Bilirubin Total 0.3 mg/dL (0.0-1.0); Blood Urea Nitrogen 19 mg/dL (9-16); Calcium 9.6 mg/dL (8.4-10.2); Carbon Dioxide 18 mmol/L (22-29); Chloride 111 mmol/L (96-108); Creatinine Clr Calc Pharmacy 72.3; Estimated Glomerular Filt Rate 52; Glucose Random 86 mg/dL (60-115); Potassium 3.8 mmol/L (3.3-5.1); Sodium 138 mmol/L (135-145); Total Protein 9.2 g/dL (6.5-8.0)
[2024-05-06 11:13] LABS: Monotest Negative (Negative)
[2024-05-06 11:15] LABS: Influenza A PCR NEGATIVE (Negative); Influenza B PCR NEGATIVE (Negative); Resp Syncy Virus RNA Qual PCR NEGATIVE (Negative); SARS COV2 PCR INHOUSE POSITIVE (Negative)
[2024-05-06 11:52] VITALS: BP 110/72; PULSE 86; RESP 18; TEMP 36.8; O2SAT 100
[2024-05-06 12:20] VITALS: BP 110/72; PULSE 86; RESP 18; TEMP 36.8; O2SAT 100
== END 2024-05-06 12:21 | disposition home or self-care (01) ==
PROVIDERS: Nurse Practitioner Family; Emergency Provider Emergency Medicine; PCP Physician Assistant
DX: U07.1 COVID-19 (principal); J02.9 Acute pharyngitis, unspecified; R05.9 Cough, unspecified
CPT/HCPCS: 0241U; 36415; 71046; 80053; 85025; 86308; 87651; 99283

== ENCOUNTER → 2024-05-06 09:39 | Outpatient (BNV) | payer MEDICARE, MEDICAID, SELFPAY | PROVIDERS: Emergency Provider Emergency Medicine; PCP Physician Assistant; Visit Provider Radiology Vascular & Interventional Radiology | DX: J84.9 Interstitial pulmonary disease, unspecified (principal) | CPT/HCPCS: 71046 ==

== ENCOUNTER 2024-08-01 08:00 | Outpatient (AMB) | payer MEDICARE, MEDICAID, SELFPAY ==
--- OUTSIDE RECORDS SUMMARY | 2024-08-01 08:04 | XMS_ITS | Encounter Summary ---
Author Organization [facility], Address [address] [place] [address] Phone Care Team Providers Care Veneer Press Operator Name Role Phone Nissa Mckeon DO Primary Care Pro vider Encounter Details Date Type Department Care Team ([facility] Contact Info) Description 05/23/2021 Documentation Only [facility], [address] [place] [address] Rob Lagunas MD [address] [place] [address] Social History Tobacco Use Types Packs/Day Years Used Date Smoking Tobacco: Former Comments Unknown Sex and Gender Information Value Date Recorded Sex Assigned at Not on file Legal Sex Female 4:34 PM EST Gender Identity Not on file Sexual Orientation Not on file documented as of this encounter Plan of Treatment Not on file documented as of this encounter Visit Diagnoses Not on filedocumented in this encounter Care Teams Veneer Press Operator Relationship Specialty Start Date End Date Nissa Mckeon DO PCP - General 04/29/20 documented as of this encounter
--- OUTSIDE RECORDS SUMMARY | 2024-08-01 08:04 | XMS_ITS | Encounter Summary ---
Author Organization [facility] Address [address] [place] [address] Care Team Providers Care National Recruiter Name Role Phone Marce Alexandre APRN Unavailable [phone] Rob Lagunas MD Unavailable [phone] Alejandrina Eugene DO Unavailable [phone] Unknown Primary Care Provider [phone] Encounter Details Date Type Department Care Team (Late st Contact Info) Description 09/21/2018 Scanned Document [facility] [address] [address] Provider, MD Jason [address] [place] [address] Social History Tobacco Use Types Packs/Day Years Used Date Smoking Tobacco: Never Assessed Sex and Gender Information Value Date Recorded Sex Assigned at Not on file Gender Identity Not on file Sexual Orientation Not on file documented as of this encounter Plan of Treatment Not on file documented as of this encounter Visit Diagnoses Not on filedocumented in this encounter Care Teams National Recruiter Relationship Specialty Start Date End Date Unknown Unknow Provider Address PCP - General 08/20/21 Marce Alexandre APRN [address] [address] Nurse Practitioner Surgery, Transplant 09/26/18 Rob Lagunas MD [address] [place] [address] Referring Provider Nephrology 09/26/18 Eugene Tinoco DO [address] [address] Primary Care Provider Family Medicine 09/26/18 documented as of this encounter
--- OUTSIDE RECORDS SUMMARY | 2024-08-01 08:04 | XMS_ITS ---
Author Name [facility] Organization Unknown Encounters Encounter Type Encounter Reason Primary Diagnosis Location Date Ambulatory [facility] [place] 10/26/2022 Ambulatory [facility] [place] 10/26/2022
--- OUTSIDE RECORDS SUMMARY | 2024-08-01 08:04 | XMS_ITS ---
Author Organization [facility] Address [address] [place] [address] Care Team Providers Care Health And Fitness Professor Name Role Phone Alexx Baum Primary Care Provider Unavailab Nan Roper Unavailable [phone] Allergies Allergen (clinical drug ingredient) Drug/Non Drug Allergy documented on EMR Reaction Allergy Type Onset Date Status ibuprofen Advil Unknown Drug Allergy Active Aleve Unknown Drug Allergy Active sulfamethoxazole / trimethoprim Bactrim Unknown Drug Allergy Active povidone-iodine Betadine Unknown Drug Allergy A ctive acetaminophen / hydrocodone HYDROcodone-Acetamino phen Unknown Drug Allergy Active Lisinopril Unknown Drug Allergy Active Motrin Unknown Drug Allergy Active acetaminophen / oxycodone oxyCODONE-Acetaminoph en Unknown Drug Allergy Active sulfamethoxazole / trimethoprim Sulfamethoxazole-Trim ethoprim Unknown Drug Allergy Active tramadol Ultram Unknown Drug Allergy Active Vicodin Unknown Drug Allergy Active ibuprofen Ibuprofen Unknown Drug Allergy Active povidone-iodine Povidone Iodine Unknown Drug Allergy Active Shellfish (FN) Shellfish-derived Products Unknown Drug Allergy Active sulfacetamide Sulfacetamide Unknown Drug Allergy Active tramadol Tramadol Unknown Drug Allergy Active REASON FOR VISIT Pcp-02/09, Ingrown Nail Medications Medication SIG (Take, Route, Frequency, Duration) Notes Start Date End Date Status Vitamin D3 2000 UNIT Orally Unknown Zofran 4 MG Orally Unknown Amlodipine & Diet Manage Prod Active Glucose Meter Test A ctive Acetaminophen 500 MG 1 tablet as needed Orally every 6 hrs Active Senexon 8.6 MG Orally Unkno wn Renvela 800 MG Orally Unkno wn B Complex Vitamins Plus 1 mg Unknown Protonix 40 MG Orally Unkno wn oxyCODONE HCl 15 MG Orally Unknown Diphenhydramine 25 mg Unknown Nephrocaps 1 MG Orally Unkn own Metoprolol Tartrate 25 MG Orally Unknown Lactulose 20 GM Orally Unkn own Ethyl Chloride 100% Unknown Albuterol Sulfate 90 mcg Unknown Eliquis 2.5 MG Orally Unkno wn Calcium Carbonate 500 MG Orally Unknown Breo Ellipta 100-25 MCG/INH Inhalation Unknown Azithromycin 500 MG 1 tablet Orally once a day 05/29/2024 Active Docusate Sodium 100 MG 1 capsule as need ed Orally Active Ergocalciferol Activ e Estradiol Active Famotidine 20 MG 1 tablet at bedtime as needed Orally twice a day 05/29/2024 Active Clotrimazole-Betamethasone Active Flucytosine 500 MG as directed Orally 05/29/2024 Active Lidocaine Active metroNIDAZOLE Active Mounjaro 15 MG/0.5ML as directed Subcutaneous 05/20 Active Nexplanon 68 MG as directed Subcutaneous Active Mycophenolate Mofetil 250 MG 1 capsule Orally Twice a day Active Tacrolimus 1 MG as directed Orally 05/29/2024 Active Tacrolimus 5 MG as directed Orally Active Pantoprazole Sodium 40 MG 1 tablet 1/2 t o 1 hour before morning meal Orally Once a day Active Senna 8.6 MG 2 capsules at bedtim e as needed Orally Once a day 05/29/2024 Active Social History Tobacco Use: Social History Observation Description Date Details (start date - stop date) Current Smoker NA - NA Tobacco Use/Smoking Question Answer Notes Are you a: current smoker Tobacco use other than smoking: Question Answer Notes Are you an other tobacco user? No Problems Problem Type SNOMED Code ICD Code Onset Dates Problem Status W/U Status Risk Notes Problem [id number] Diabetes mellitu s without complication (E11.9) Active confirmed Vital Signs Height 5ft6in in 06/07/2024 Weight 198 lbs 06/07/2024 BMI 31.95 kg/m2 06/07/2024 Blood pressure systolic 113 mm Hg 06/07/19 25 Blood pressure diastolic 65 mm Hg 025 Encounters Encounter Location Date Provider Diagnosis [facility] [address] [place] [address] 06/07/2024 Nan Alan Ingrown nail L60.0 ; Diabetes mellitus without complication E11.9 ; Pain in right toe(s) M79.674 and Pain in left toe(s) M79.675 Assessments Encounter Date Diagnosis (ICD Code) Assessment Notes Treatment Notes Treatment Clinical Notes Section Notes 06/07/2024 Ingrown nail (ICD-10 - L60.0) 06/07/2024 Diabetes mellitus without complication (ICD-10 - E11.9) 06/07/2024 Pain in right toe(s) (ICD-10 - M79.674) 06/07/2024 Pain in left toe(s) (ICD-10 - M79.675) Plan Of Treatment Next Appt Details Follow Up: prn, Reason: Procedure Notes * Category Sub-Category Detail Notes Nail Avulsion Procedure A fine sterile e levator was placed between the eponychium, nail fold, and nail plate to separate the structures. A sterile nail splitter, and/or sterile 316 blade, was then used to longitudinally section the nail along its entire length through the eponychium to the area under the nail fold. The offending portion of nail was from the nail bed with a rolling action and then removed with a hemostat. No underlying bone was identified. There was minimal bleeding as hemostasis was achieved through the temporary use of either a digital tourniquet or the aforementioned local with epinephrine. A bacitracin sterile dressing was applied. Local wound aftercare instructions were discussed and dispensed. The patient was informed of both conservative and future surgical procedures to prevent recurrence. Tylenol or Motrin was recommended for pain or discomfort (48461) Anesthesia 3cc of 1 percent Lid ocaine Plain local anesthesic utilizing aseptic technique Location Bilateral nail yaseminde r, TA Progress Notes * Dara ROBLES RDOB:1975 (48 yo F)Acc No.[id number]:06/07/2024 Progress Notes Patient:?Dara ROBLES Provider:?Nan Phillips DPM :1975???Age:48 Y???Sex:Female D ate:06/07/2024 Address:[address] [place] [address] Pcp:Alexx Baum Subjective: * Chief Complaints: * ???Pcp-02/09Ingrown Nail * HPI: ???Ingrown toenail:?Nature:?aching, tenderness.?Location:?Great toe, Both feet.?Duration:?several years.?Onset/Cause:?gradual, self nail treatment.?Course:?worse.?Aggravated by:?any pressure.?Treatments:?nail salons.? * ROS:?General/Constitutional:?Nausea?denies.?Vomiting?denies.?Hunger Thirst?denies.?Loss appetite?denies.?Chills?denies.?Fatigue?denies.?Fever?denies.?Night Sweats?denies.?Unexplained weight loss?denies.?Unexplained weight gain?denies.?HEENTM:?Dentures?denies.?Dizziness?denies.?Glasses/contacts?denies.?Retinopathy?den ies.?Blurred/double vision?denies.?TMJ?denies.?Discharge/drainage?denies.?Implants?denies.?Sore throat?denies.?Dental implants?denies.?Hard of hearing ?denies.?Difficulty chewing/swallowing/speaking?denies.?Nose bleeds?denies.?Sore mouth?denies.?Respiratory:?On O xygen?denies.?Pneumonia/pleurisy?denies.?Bronchitis?denies.?Emphysema?denies.?Co ughing?denies.?Cough blood?denies.?Shortness of breath?denies.?Wheezing?denies.?Cardiovascular:?Pacemaker?denies.?MVP?denies.?WPW?denies.?CHF?denies.?Heart attack?denies.?Septal defect?denies.?Rapid beat?denies.?Chest pain ?denies.?Atrial Fib.?denies.?Murmur/Palpitations?denies.?Gastrointestinal:?Hemorrhoids?denies.?Stomach/Abdominal pain?denies.?Dark blood stool?denies.?Irritable bowel ?denies.?Constipation?denies.?Diarrhea?denies.?Hematology:?Swelling?denies.?Clots?denies.?Varicose Veins?denies.?Bruising?denies.?Bleeding problem?denies.?Genitourinary:?Blood urine?denies.?Frequent/Painfu/urination/bladder control?denies.?Kidney stones?denies.?Infection (UTI)?denies.?Nephropathy?denies.?sex trans dis (STD)?denies.?Prostate?denies.?Musculoskeletal:?Hammertoes?denies.?Bunions?denies.?Back Pain?denies.?Muscle Cramps/ Resting?denies.?Muscle cramps / walking?denies.?Generalized aches and pains?denies.?Weakness?denies.?Integ.:?Hatch?denies.?Scars?denies.?Corns/calluses?denies.?Ingrown nails?denies.?Painful nails?denies.?Open Sores?denies.?Rashes?denies.?Neurologic:?Difficulty sleeping?denies.?Brain disorder?denies.?Numbness?denies.?Balance t rouble?denies.?Confusion?denies.?Fainting/blackouts?denies.?Tingling?denies.?Harshad mors?denies.? * Medical History:? * Surgical History:?kidney tra nsplant houlder replacement Left 2021 * Hospitalization/Major Diagno stic Procedure:?Denies Past Hospitalization * Family History:?Mother: dece ased, arthritis, foot problems, kidney/liver problems, diagnosed with Diabetic - NIDDM.?Father: , arthritis, kidney/liver disease.? * Social History:?Tobacco Use:?Tobacco Use/Smoking?Are you a:?current smoker ?Tobacco use other than smoking?Are you an other tobacco user??No ???Miscellaneous:?Caffeine: no, none,. ?Children: no. ?Exercise: no. ?Marital status: single. ?Occupation: disability. * Medications:?TakingGlucose M eter Test Amlodipine & Diet Manage Prod Acetaminophen 500 MG Tablet 1 tablet as needed Orally every 6 hrs Tacrolimus 5 MG Capsule as directed Orally Tacrolimus 1 MG Capsule as directed Orally Mycophenolate Mofetil 250 MG Capsule 1 capsule Orally Twice a day Senna 8.6 MG Capsule 2 capsules at bedtime as needed Orally Once a day Pantoprazole Sodium 40 MG Tablet Delayed Release 1 tablet 1/2 to 1 hour before morning meal Orally Once a day Nexplanon 68 MG Implant as directed Subcutaneous Mounjaro 15 MG/0.5ML Solution Auto-injector as directed Subcutaneous metroNIDAZOLE Lidocaine Flucytosine 500 MG Capsule as directed Orally Famotidine 20 MG Tablet 1 tablet at bedtime as needed Orally twice a day Estradiol Ergocalciferol Docusate Sodium 100 MG Capsule 1 capsule as needed Orally Clotrimazole-Betamethasone Azithromycin 500 MG Tablet 1 tablet Orally once a day Taking Glucose Meter Test Taking Amlodipine & Diet Manage Prod Taking Acetaminophen 500 MG Tablet 1 tablet as needed Orally every 6 hrs Taking Tacrolimus 5 MG Capsule as directed Orally Taking Tacrolimus 1 MG Capsule as directed Orally Taking Mycophenolate Mofetil 250 MG Capsule 1 capsule Orally Twice a day Taking Senna 8.6 MG Capsule 2 capsules at bedtime as needed Orally Once a day Taking Pantoprazole Sodium 40 MG Tablet Delayed Release 1 tablet 1/2 to 1 hour before morning meal Orally Once a day Taking Nexplanon 68 MG Implant as directed Subcutaneous Taking Mounjaro 15 MG/0.5ML Solution Auto-injector as directed Subcutaneous Taking metroNIDAZOLE Taking Lidocaine Taking Flucytosine 500 MG Capsule as directed Orally Taking Famotidine 20 MG Tablet 1 tablet at bedtime as needed Orally twice a day Taking Estradiol Taking Ergocalciferol Taking Docusate Sodium 100 MG Capsule 1 capsule as needed Orally Taking Clotrimazole-Betamethasone Taking Azithromycin 500 MG Tablet 1 tablet Orally once a day UnknownAlbuterol Sulfate 90 mcg Breo Ellipta 100-25 MCG/INH Aerosol Powder Breath Activated Inhalation Calcium Carbonate 500 MG Tablet Chewable Orally Eliquis 2.5 MG Tablet Orally Diphenhydramine 25 mg Ethyl Chloride 100% topical spray Lactulose 20 GM Packet Orally Metoprolol Tartrate 25 MG Tablet Orally Nephrocaps 1 MG Capsule Orally oxyCODONE HCl 15 MG Tablet Orally Protonix 40 MG Tablet Delayed Release Orally B Complex Vitamins Plus 1 mg Renvela 800 MG Tablet Orally Senexon 8.6 MG Tablet Orally Zofran 4 MG Tablet Orally Vitamin D3 2000 UNIT Capsule Orally Medication List reviewed and reconciled with the patientUnknown Albuterol Sulfate 90 mcg Unknown Breo Ellipta 100-25 MCG/INH Aerosol Powder Breath Activated Inhalation Unknown Calcium Carbonate 500 MG Tablet Chewable Orally Unknown Eliquis 2.5 MG Tablet Orally Unknown Diphenhydramine 25 mg Unknown Ethyl Chloride 100% topical spray Unknown Lactulose 20 GM Packet Orally Unknown Metoprolol Tartrate 25 MG Tablet Orally Unknown Nephrocaps 1 MG Capsule Orally Unknown oxyCODONE HCl 15 MG Tablet Orally Unknown Protonix 40 MG Tablet Delayed Release Orally Unknown B Complex Vitamins Plus 1 mg Unknown Renvela 800 MG Tablet Orally Unknown Senexon 8.6 MG Tablet Orally Unknown Zofran 4 MG Tablet Orally Unknown Vitamin D3 2000 UNIT Capsule Orally Medication List reviewed and reconciled with the patient * Allergies:?BactrimAdvilAleve MotrinBetadineUltramVicodinLisinoprilShellfish- derived ProductsTramadolIbuprofenoxyCODONE-AcetaminophenPovidone I itoexEbbvgdwrnkmejevt-DzhpcdtscjruXJWFFdycsgb-JhcuzuxiypphmKbbecuvbjbpcsqbr[Jose Miguel rgies Verified] Objective: * Vitals:?Ht: 5ft6in, Wt:198, BMI:31.95, Shoe size: 10, BP:113/65mm Hg, BS: 92, Ht-cm: 167.64 cm, Wt-k.81 kg. * ???Past Orders: ???Lab:HEMOGLOBIN A1C (GLYCO HEMOGLOBIN) (Order Date - 01/18/2024) (Collection Date & Time - 01/18/2024 09:44 AM) ? Value Reference Range ?HEMOGLOBIN A1C % (HH) 6.0 * Examination: ???Ophthalmology Referral: ?DIABETES EYE EXAM?Procedure Performed:?Yes ?Date of Exam Performed?01/18/2024 ?Findings of Diabetic Eye Exam:?no retinopathy?General Examination: ?GENERAL APPEARANCE:?Reveals a pleasant, alert, well-nourished, well- developed, well hydrated individual, who demonstrates proper attention to hygiene/body habitus, and is in no acute distress, Pt serves as own?historian for office visit today.?ORIENTED:?person, place, and time.?FOOT EXAM:?Lower Extremity Neurological Exam performed:?Yes ?Visual exam of foot performed:?Yes ?Date?06/07/2024 ?Footwear Evaluation?Footwear Evaluation performed:?Yes?Neurological: ?SENSORY:?Neurological exam reveals intact sensorium, pain sensation normal, vibration sensation intact, pinprick sensation is normal in the lower extremities, Pt denies, anesthesia, burning, paresthesia, tingling, B/L.?Vascular: ?DP PULSES (B):?3/4, B/L.?PT PULSES (B):?3/4, B/L.?CAPILLARY FILL TIME:?immediate, all digits, B/L.?TROPHIC CONDITION-TEXTURE/ELASTICITY/TURGOR/HAIR GROWTH (B):?normal, B/L.?TEMPERTURE GRADIENT (C):?warm to cool, proximal to distal, B/L.?PIGMENTATION:?normal, B/L.?EDEMA (C):?absent, B/L.?Dermatologic: ?SKIN FINDINGS:?Skin exam reveals normal texture, elasticity, and turgor. There are no masses. The interspaces are clear.?Orthopedic: ?MUSCLE STRENGTH:?5/5 all groups in a symmetrical fashion , B/L.?Ingrown Nail: ?INSPECTION:?Reveals nail incurvation, pain on palpation, groove hypertrophy, Bilateral nail borders, TA > T5.? Assessment: * Assessment: 1.?Ingrown nail - L60.0 (Jacquie comobs)???2.?Diabetes mellitus without complication - E11.9???3.?Pain in right toe(s) - M79.674???4.?Pain in left toe(s) - M79.675??? Plan: * Treatment: * Procedures:?Nail Avulsion:?Location?Bilateral nail border, TA.?Anesthesia?3cc of 1 percent Lidocaine Plain local anesthesic utilizing aseptic technique.?Procedure?A fine sterile elevator was placed between the eponychium, nail fold, and nail plate to separate the structures. A sterile nail splitter, and/or sterile 316 blade, was then used to longitudinally section the nail along its entire length through the eponychium to the area under the nail fold. The offending portion of nail was from the nail bed with a rolling action and then removed with a hemostat. No underlying bone was identified. There was minimal bleeding as hemostasis was achieved through the temporary use of either a digital tourniquet or the aforementioned local with epinephrine. A bacitracin sterile dressing was applied. Local wound aftercare instructions were discussed and dispensed. The patient was informed of both conservative and future surgical procedures to prevent recurrence. Tylenol or Motrin was recommended for pain or discomfort (73861).? * Procedure Codes:?40130 Avuls ion Plate, Modifiers: TA * Preventive Medicine:? ??Counseling:?Discussion:?-03: Office or other outpatient visit for the evaluation and management of a new patient, which required a medically appropriate history and/or examination and LOW level of DECISION MAKING for: 1 STABLE ACUTE UNCOMPLICATED PROBLEM, 2 OR MORE MINOR PROBLEMS, OR 1 STABLE CHRONIC PROBLEM, THAT POSE(S) A LOW RISK FOR MORBIDITY/MORTALITY. The visit on the day of the encounter encompassed interpreting the data and educating the patient as to the nature of their condition, treatment options available according to their individual PMH, meds, allergies, and overall health/living conditions, as well as any potential risks or complications that may occur from a failure to adhere to, and participate in, the recommended course of therapy. The discussion included a complete verbal, and/or written explanation of the examination results, any x-rays taken, the proposed diagnosis, and outline of the treatment plan. A schedule for future care needs was also explained. The patient verbalized an understanding of the instructions at this time and agreed to be an active participant in their treatment. If the patient should think of any questions or concerns after the visit, I have encouraged the patient to call the office.?Abscess/Paraonychia/Ingrown Nails:?We discussed the possible etiologies (genetic, improper nail care, shoe gear, nail trauma) which may lead to ingrown nails and/or paronychial infections. We discussed and reviewed palliative/nonsurgical/deferring definitive treatment (vs) undergoing the treatment procedures of nail avulsion(s) or PNA, which may prevent recurrence and give more lasting results. The possible risks/complications such as worsened condition/delayed healing/nonhealing/failure/recurrence/infection, the potential benefits/advantages of decreased pain/deformity, as well as alterative treatment options including applying nail softening agents/nail groove packing were discussed. No guarantees were given regarding any outcome for any procedure. The patient was educated in the length of time for the affected nail to regrow once completely healed from a nail avulsion procedure. Once the condition has completely healed, the patient was consulted on proper nail care. Patient questions such as details of each procedure, varying time to heal, activity post procedure, and shoe gear were discussed and the answers were verbally confirmed fully understood.?Diabetic Footcare:?The patient was advised against future self nail/callus care due to inherent risks for infection, loss of limb/life given diabetes.? * Follow Up:?prn * Images: * Sign off status: Completed true * Provider:?Nan Phillips DPM Date:? Generated for Mona tran/Spencer/eTransmitting on:?08/01/2024 08:04 AM EDT History and Physical Notes * HPI (History of Present Illness) Category Sub-Category Detail Notes Category Not es Ingrown toenail Duration: several years Nature: aching, tenderness Location: Great toe, Both feet Treatments: nail salons Aggravated by: any pressure Onset/Cause: gradual, self nail t reatment Course: worse Examination Category Sub-Category Detail Notes Category Not es Ingrown Nail INSPECTION: Reveals nail inc urvation, pain on palpation, groove hypertrophy, Bilateral nail borders, TA > T5 Neurological SENSORY: Neurological exa m reveals intact sensorium, pain sensation normal, vibration sensation intact, pinprick sensation is normal in the lower extremities, Pt denies, anesthesia, burning, paresthesia, tingling, B/L Dermatologic SKIN FINDINGS: Skin exam reveal s normal texture, elasticity, and turgor. There are no masses. The interspaces are clear Orthopedic MUSCLE STRENGTH: 5/5 all groups in a symmetrical fashion , B/L General Examination GENERAL APPEARANCE: Reveals a pleasant, alert, well-nourished, well-developed, well hydrated individual, who demonstrates proper attention to hygiene/body habitus, and is in no acute distress, Pt serves as own historian for office visit today FOOT EXAM: Lower Extremity Neurological Exa m performed:: Yes Visual exam of foot performed:: Yes Date: 06/07/2024 ORIENTED: person, place, and t deepti Footwear Evaluation Footwear Evaluation performe d:: Yes Ophthalmology Referral DIABETES EYE EXAM Procedure Perform ed:: Yes ?Date of Exam Performed: 01/18/2024 Findings of Diabetic Eye Exam:: no retin opathy Vascular DP PULSES (B): 3/4, B/L PT PULSES (B): 3/4, B/L CAPILLARY FILL TIME: immediate, all digi ts, B/L TEMPERTURE GRADIENT (C): warm to cool, p roximal to distal, B/L TROPHIC CONDITION-TEXTURE/ELASTICITY/TURGOR/HAIR GROWTH (B): normal, B/L EDEMA (C): absent, B/L PIGMENTATION: normal, B/L
--- OUTSIDE RECORDS SUMMARY | 2024-08-01 08:04 | XMS_ITS | Encounter Summary ---
Author Organization [facility], Address [address] [place] [address] Phone Care Team Providers Care Teacher Tutor Name Role Phone Nissa Mckeon DO Primary Care Pro vider Reason for Visit * Reason Comments Med Refill Encounter Details Date Type Department Care Team (Late st Contact Info) Description 07/17/2019 Refill [facility] [address] [place] [address] Wicho Johnson PA Social History Tobacco Use Types Packs/Day Years [...] on filedocumented in this encounter Care Teams Teacher Tutor Relationship Specialty Start Date End Date Nissa Mckeon DO PCP - General 04/29/20 documented as of this encounter
--- OUTSIDE RECORDS SUMMARY | 2024-08-01 08:04 | XMS_ITS | Encounter Summary ---
Author Organization [facility] Address [address] [place] [address] Care Team Providers Care Enrollment Services Dean Name Role Phone Marce Alexandre APRN Unavailable [phone] Rob Lagunas MD Unavailable Alejandrina Eugene DO Unavailable [phone] Unknown Primary Care Provider [phone] Encounter Details Date Type Department Care Team (Late st Contact Info) Description 08/19/2018 Scanned Document [facility] [address] [address] Provider, MD Jason [address] [place] [address] Social History Tobacco Use Types Packs/Day Years Used Date Smoking Tobacco: Never Assessed Sex and Gender Information Value Date Recorded Sex Assigned at Not on file Gender Identity Not on file Sexual Orientation Not on file documented as of this encounter Plan of Treatment Not on file documented as of this encounter Visit Diagnoses Not on filedocumented in this encounter Care Teams Enrollment Services Dean Relationship Specialty Start Date End Date Unknown Unknow Provider Address PCP - General 08/20/21 Marce Alexandre APRN [address] [address] Nurse Practitioner Surgery, Transplant 09/26/18 Rob Lagunas MD [address] [place] [address] Referring Provider Nephrology 09/26/18 Eugene Tinoco DO [address] [address] Primary Care Provider Family Medicine 09/26/18 documented as of this encounter
--- OUTSIDE RECORDS SUMMARY | 2024-08-01 08:04 | XMS_ITS | Clinical Summary ---
Author Organization [facility] Address [address] [place] [address] Care Team Providers Care Shell Plater Name Role Phone Unavailable Primary Care Provider Unavailabl e Surgical History Surgery Date Site/Laterality Comments OTHER SURGICAL HISTORY PROCEDURE: AV FISTULA OR GRAFT ARTERIAL PARATHYROIDECTOMY PROCEDURE: HISTORICAL PARATHYROIDECTOMY OTHER SURGICAL HISTORY PROCEDURE: [place] [facility] THYROID LOBECTOMY UNI W/WO ISTHMUSECTOMY Medical History Medical History Date Comments HTN (hypertension) DX:HTN (hyper tension) ESRD (end stage renal diseas e) ([facility] [place]24, [facility] V28) DX:ESRD (end stage renal dis ease) ([facility]); COMMENT: hd at [facility] er/icu; babu Anxiety DX:Anxiety Depression DX:Depression Bipolar disorder ([facility] V2 4, [facility] V28) DX:Bipolar disorder ([facility]); C OMMENT: [facility] therapist Secondary hyperparathyroidis m ([facility] V24) DX:Secondary hyperparathyroi dism ([facility]) Asthma DX:Asthma Tobacco use DX:Tobacco use Hidradenitis suppurativa DX:Hidr adenitis suppurativa History of substance abuse ( [facility] V24, [facility] V28) DX:History of substance abus e ([facility]) GERD (gastroesophageal reflux disease) DX:GERD (gastroesophageal reflux disease) Folliculitis DX:Folliculitis; COMMENT: abdominal QT prolongation DX:QT prolongati on; COMMENT: chronic per ER notes H/O parathyroidectomy DX:H/O par athyroidectomy; COMMENT: one reimplanted H/O partial thyroidectomy DX:H/O partial thyroidectomy; COMMENT: right Family History Medical History Relation Name Comments Other: hypertension Brother 1 Diabetes Mother Relation Name Status Comments Brother 1 Brother 2 Father Mother Social History Tobacco Use Types Packs/Day Years Used Date Smoking Tobacco: Light Smoker Smokeless Tobacco: Never Alcohol Use Standard Drinks/Week Comments No 0 (1 standard drink = 0.6 oz pur e alcohol) Comments Unknown Sex and Gender Information Value Date Recorded Sex Assigned at Not on file Legal Sex Female 9:19 PM EST Gender Identity Not on file Sexual Orientation Not on file Obstetrics History Plan of Treatment Health Maintenance Due Date Last Done Comments Breast Cancer Screening 1975 Hepatitis B Vaccines (1 of 3 - 19+ 3-dose series) 11/03/1995 Cervical Cancer Screening: P ap Smear 1997 DTaP,Tdap,and Td Vaccines (2 - Td or Tdap) 09/29/2023 09/28/2013 COVID-19 Vaccine (1 - 2023-2 5 season) 2023 Influenza Vaccine (Season Ended) 2024 Pneumococcal Vaccine: Pediat rics (0 to 5 Years) and At-Risk Patients (6 to 64 Years) Aged Out 10/13/2013 No longer eligi ble based on patient's age to complete this topic HIB Vaccines Aged Out No longer eligi ble based on patient's age to complete this topic HPV Vaccines Aged Out No longer eligi ble based on patient's age to complete this topic Hepatitis A Vaccines Aged Out No long er eligible based on patient's age to complete this topic IPV Vaccines Aged Out No longer eligi ble based on patient's age to complete this topic MMR Vaccines Aged Out No longer eligi ble based on patient's age to complete this topic Meningococcal ACWY Vaccine Aged Out N o longer eligible based on patient's age to complete this topic Meningococcal B Vaccine Aged Out No l onger eligible based on patient's age to complete this topic RSV Immunization Patients Un roslyn 20 months Aged Out No longer eligible b ased on patient's age to complete this topic Varicella Vaccines Aged Out No longer eligible based on patient's age to complete this topic
--- OUTSIDE RECORDS SUMMARY | 2024-08-01 08:04 | XMS_ITS | Clinical Summary ---
Author Organization [facility] Address [address] [place] [address] Care Team Providers Care Consulting Practice Director Name Role Phone Unavailable Primary Care Provider Unavailabl e Source Comments PLEASE NOTE, if this patient is a minor, it may be UNLAWFUL to discuss sensitive information that is contained in these records (such as FAMILY PLANNING, MENTAL HEALTH or SUBSTANCE ABUSE) with the minor patient's parent or other person without the patient's specific authorization.[facility] Allergies Active Allergy Reactions Criticality Noted Date Comments Mychal Inhibitors High 11/08/2012 Edema Contraindicated due to ESRD Medications calcium acetate (PHOSLO) 667 mg capsule Take 3 Caps by mouth 3 (three) times daily with meals. 270 Cap 2 3 Active b eumylfe-S-jpxmu acid (NEPHROCAPS) 1 mg per capsuleIndicatio ns:ESRD (end stage renal disease) on dialysis ([facility]) Take 1 Cap by mouth once daily. 30 Cap 4 3 Active loratadine (CLARITIN) 10 mg tabletIndication s:Allergic rhinitis Take 1 Tab by mouth once daily as needed for allergies. Active diphenhydrAMINE (BENADRYL) 50 mg tabletIndication s:ESRD (end stage renal disease) on dialysis ([facility]) Take 1 Tab by mouth as needed. Take 50 mg with dialysis Active albuterol sulfate hfa (PROVENTIL,BON BEKAH,PROAIR) 90 mcg/actuation inhalerIndicatio ns:ASTHMA MODERATE PERSISTENT Inhale 2 Puffs into the lungs every 4 (four) hours as needed. 1 Inhaler Active beclomethasone (QVAR) 40 mcg/actuation inhalerIndicatio ns:ASTHMA MODERATE PERSISTENT Inhale 2 Puffs into the lungs 2 (two) times daily. 1 Inhaler Active lactulose (CEPHULAC) 20 gram packetIndication s:Constipation Take 1 Packet by mouth once daily. Before taking, dissolve in half glass (120 mL) of water. Active miconazole (MICATIN) 2 % creamIndications :Vulvar candidiasis Apply topically 2 (two) times daily. 15 g Active b eeuczbo-V-ewiuv acid (RENAL CAPS) 1 mg per capsuleIndicatio ns:ESRD (end stage renal disease) on dialysis ([facility]) Take 1 Cap by mouth once daily. Active pantoprazole (PROTONIX) 40 mg EC tabletIndication s:GERD (gastroesophagea l reflux disease) Take 1 Tab by mouth every morning before breakfast. Swallow whole. Do not crush or chew. 30 Tab 4 3 Active sennosides (SENNA LAX) 8.6 mg tabletIndication s:Constipation Take 2 Tabs by mouth nightly at bedtime as needed for constipation. 60 Tab 4 3 Active minoxidil (LONITEN) 2.5 mg tabletIndication s:HTN (hypertension) Take 1 Tab by mouth once daily. 30 Tab 2 3 Active cloNIDine (CATAPRES) 0.3 mg tabletIndication s:HTN (hypertension) Take 1 Tab by mouth 2 (two) times daily. 60 Tab 2 3 Active metoprolol (LOPRESSOR) 100 mg tabletIndication s:HTN (hypertension) Take 1 Tab by mouth 2 (two) times daily. 60 Tab 2 3 Active NIFEdipine (ADALAT CC) 90 mg 24 hr tabletIndication s:HTN (hypertension) Take 1 Tab by mouth once daily. Take on an empty stomach. Swallow whole. Do not break, crush or chew. 30 Tab 2 3 Active Active Problems Problem Noted Date Diagnosed Date Obesity 08/09/2008 Overview (01/02/2013): BMI = 37.3 08/09/08 HTN (hypertension) ESRD (end stage renal disease) on dialysis ([facility]) Overview (01/03/2013): Goes [facility] 2x/week, as No Supervisor Inspection in area will take her as patient due past poor behavior and non-compliance. Eczema ASTHMA MODERATE PERSISTENT Overview (01/02/2013): Tobacco abuse Hyperlipidemia Hidradenitis suppurativa Overview (01/02/2013): Wound care follow up Dr. Mcbride Borderline personality disorder ([facility]) Overview (01/03/2013): Non-compliant with psych f/u. GERD (gastroesophageal reflux disease) Constipation Allergic rhinitis Vulvar candidiasis Right hip pain Immunizations Immunization Administration Dates Next Due Hep B, Adult/Adol (ENERGIX/RECOMBIVAX) 9,07/19/2008,03/06/2008 PPD 07/03/2005 Social History Tobacco Use Types Packs/Day Years Used Date Smoking Tobacco: Never Assessed Comments Unknown Sex and Gender Information Value Date Recorded Sex Assigned at Not on file Legal Sex Female 11:36 AM PDT Gender Identity Not on file Sexual Orientation Not on file Plan of Treatment Not on file Insurance [place]
--- OUTSIDE RECORDS SUMMARY | 2024-08-01 08:04 | XMS_ITS | Encounter Summary ---
Author Organization [facility], Address [address] [place] [address] Phone Care Team Providers Care Necktie Maker Name Role Phone Nissa Mckeon DO Primary Care Pro vider Reason for Visit * Reason Comments Med Refill Encounter Details Date Type Department Care Team (Late st Contact Info) Description 07/16/2020 Refill [facility] [address] [place] [address] Wicho Johnson PA Social History [...] on filedocumented in this encounter Care Teams Necktie Maker Relationship Specialty Start Date End Date Nissa Mckeon DO PCP - General 04/29/20 documented as of this encounter
--- OUTSIDE RECORDS SUMMARY | 2024-08-01 08:04 | XMS_ITS | Encounter Summary ---
Author Organization [facility] Address [address] [place] [address] Care Team Providers Care Teacher [employer] Name Role Phone Marce Alexandre APRN Unavailable Rob Lagunas MD Unavailable Alejandrina Eugene DO Unavailable [phone] Unknown Primary Care Provider [phone] Encounter Details Date Type Department Care Team (Late st Contact Info) Description 09/21/2018 Scanned Document [facility] [address] [address] Provider, MD Jason [address] [place] [address] Social History Tobacco Use Types Packs/Day Years Used Date Smoking Tobacco: Never Assessed Sex and Gender Information Value Date Recorded Sex Assigned at Not on file Gender Identity Not on file Sexual Orientation Not on file documented as of this encounter Plan of Treatment Not on file documented as of this encounter Visit Diagnoses Not on filedocumented in this encounter Care Teams [employer] Relationship Specialty Start Date End Date Unknown Unknow Provider Address PCP - General 08/20/21 Marce Alexandre APRN [address] [address] Nurse Practitioner Surgery, Transplant 09/26/18 Rob Lagunas MD [address] [place] [address] Referring Provider Nephrology 09/26/18 Eugene Tinoco DO [address] [address] Primary Care Provider Family Medicine 09/26/18 documented as of this encounter
--- OUTSIDE RECORDS SUMMARY | 2024-08-01 08:04 | XMS_ITS ---
Author Organization [facility] Address [address] [place] [address] Care Team Providers Care Real Estate Manager Name Role Phone Alexx Baum Primary Care Provider Unavailab Nan Roper Unavailable [phone] REASON FOR VISIT Missbooked Encounters Encounter Location Date Provider Diagnosis [facility] [address] [place] [address] 07/05/2024 Nan Phillips Plan Of Treatment No Information Progress Notes * Dara ROBLES RDOB:1975 (48 yo F)Acc No.[id number]:07/05/2024 Progress Note Patient:?Dara ROBLES Provider:?Nan Phillips DPM :1975???Age:48 Y???Sex:Female D ate:07/05/2024 Address:[address] [place], [place] [id number] Pcp:Alexx Baum Subjective: * Chief Complaints: * ???1. Missbooked. * Medical History:? Objective: * Vitals:? Assessment: Plan: * Treatment: * Images: * The named appointment provid er may or may not be the originator of this progress note, and it is not deemed complete until electronically signed by the appointment provider. Sign off status: Pending * Provider:?Nan Phillips DPM Date:? Generated for Printi ng/Faxing/eTransmitting on:?08/01/2024 08:03 AM EDT
--- OUTSIDE RECORDS SUMMARY | 2024-08-01 08:04 | XMS_ITS | Clinical Summary ---
Author Organization [email or web address] Address [address] [place] [address] Care Team Providers Care Centrifuge Separator Tender Name Role Phone Unavailable Primary Care Provider Unavailabl e Social History Tobacco Use Types Packs/Day Years Used Date Smoking Tobacco: Never Assessed Sex and Gender Information Value Date Recorded Sex Assigned at Not on file Gender Identity Not on file Sexual Orientation Not on file Plan of Treatment Not on file
--- OUTSIDE RECORDS SUMMARY | 2024-08-01 08:04 | XMS_ITS | Encounter Summary ---
Author Organization [facility], Address [address] [place] [address] Phone Care Team Providers Care Kiln Fireman Name Role Phone Nissa Mckeon DO Primary Care Pro vider Encounter Details Date Type Department Care Team ([facility] Contact Info) Description 04/29/2021 Documentation Only [facility], [address] [place] [address] Rob Lagunas MD [address] [place] [address] Social History Tobacco Use Types [...] on filedocumented in this encounter Care Teams Kiln Fireman Relationship Specialty Start Date End Date Nissa Mckeon DO PCP - General 04/29/20 documented as of this encounter
--- OUTSIDE RECORDS SUMMARY | 2024-08-01 08:04 | XMS_ITS | Encounter Summary ---
Author Organization [facility], Address [address] [place] [address] Phone Care Team Providers Care Edging Machine Operator Name Role Phone Nissa Mckeon DO Primary Care Pro vider Encounter Details Date Type Department Care Team (Late st Contact Info) Description 07/25/2021 Telephone [facility] [address] [place] [address] Danna Jain [address] [place] [address] Social History Tobacco Use Types Packs/Day Years [...] on filedocumented in this encounter Care Teams Edging Machine Operator Relationship Specialty Start Date End Date Nissa Mckeon DO PCP - General 04/29/20 documented as of this encounter
--- OUTSIDE RECORDS SUMMARY | 2024-08-01 08:04 | XMS_ITS | Patient Health Record ---
Author [facility] Address [address] [facility] [place] [address] Care Team Providers Care Director Of Development Name Role Phone Alexx Baum Primary Care Provider Unavailab Nan Roper Unavailable [phone] Allergies Allergen (clinical drug ingredient) Drug/Non Drug [...] Active tramadol Tramadol Unknown Drug Allergy Active Results Component Value Reference Range Notes HEMOGLOBIN A1C (GLYCOHEMOGLO BIN) Reviewed date:06/07/2024 09:45:04 AM Interpretation: Performing Lab: Notes/Report: HEMOGLOBIN A1C % (HH) 6.0 Reason For Referral No Information Medications Medication SIG (Take, Route, Frequency, Duration) Notes Start Date End Date Status Senna 8.6 MG 2 capsules at bedtim e as needed Orally Once a day 05/29/2024 Active oxyCODONE HCl 15 MG Orally Unknown Mycophenolate Mofetil 250 MG 1 capsule Orally Twice a day Active Nephrocaps 1 MG Orally Unkn own Tacrolimus 1 MG as directed Orally 05/29/2024 Active Metoprolol Tartrate 25 MG Orally Unknown Tacrolimus 5 MG as directed Orally Active Lactulose 20 GM Orally Unkn own metroNIDAZOLE Active Mounjaro 15 MG/0.5ML as directed Subcutaneous 05/20 Active Renvela 800 MG Orally Unkno wn Nexplanon 68 MG as directed Subcutaneous Active B Complex Vitamins Plus 1 mg Unknown Pantoprazole Sodium 40 MG 1 tablet 1/2 t o 1 hour before morning meal Orally Once a day Active Protonix 40 MG Orally Unkno wn Acetaminophen 500 MG 1 tablet as needed Orally every 6 hrs Active Ethyl Chloride 100% Unknown Diphenhydramine 25 mg Unknown Eliquis 2.5 MG Orally Unkno wn Amlodipine & Diet Manage Prod Active Glucose Meter Test A ctive Clotrimazole-Betamethasone Active Docusate Sodium 100 MG 1 capsule as need ed Orally Active Ergocalciferol Activ e Estradiol Active Calcium Carbonate 500 MG Orally Unknown Breo Ellipta 100-25 MCG/INH Inhalation Unknown Albuterol Sulfate 90 mcg Unknown Azithromycin 500 MG 1 tablet Orally once a day 05/29/2024 Active Famotidine 20 MG 1 tablet at bedtime as needed Orally twice a day 05/29/2024 Active Flucytosine 500 MG as directed Orally 05/29/2024 Active Vitamin D3 2000 UNIT Orally Unknown Zofran 4 MG Orally Unknown Senexon 8.6 MG Orally Unkno wn Lidocaine Active Social History Tobacco Use: Social History Observation Description Date Details (start date - stop date) Current Smoker 06/18/2004 - NA Tobacco use other than smoking: Question Answer Notes Are you an other tobacco user? No Tobacco Control (Standard) Question Answer Notes Tobacco use: Current smoker When did you start smoking? 06/18/2004 How often do you smoke cigarettes? Every day How many cigarettes a day do you smoke? 6-10 How soon after you wake up d o you smoke your first cigarette? 6-30 minutes Are you interested in quitting? Thinking about q uitting Additional Findings: Tobacco user Modera te cigarette smoker (10-19 cigs/day) AUDIT-C (Standard) Question Answer Notes Did you have a drink containing alcohol in the p ast year? No Points 0 Interpretation Negative Problems Problem Type SNOMED Code ICD Code Onset Dates Problem Status W/U Status Risk Notes Problem 82018905 Diabetes mellitu s without complication (E11.9) Active confirmed Vital Signs Blood pressure diastolic 65 mm Hg 07/05/2024 Height 5ft6in in 07/05/2024 Blood pressure systolic 113 mm Hg 07/05/2024 Weight 198 lbs 07/05/2024 BMI 31.95 kg/m2 07/05/2024 Encounters Encounter Location Date Provider Diagnosis [address] [address] 06/07/2024 Nan Perica Ingrown nail L60.0 ; Diabetes mellitus without complication E11.9 ; Pain in right toe(s) M79.674 and Pain in left toe(s) M79.[address] [address] 07/05/2024 Nan Perica Ingrown nail L60.0 and Diabetes mellitus without complication E11.[address] [address] 03/27/2024 Nan Perica Assessments Encounter Date Diagnosis (ICD Code) Assessment Notes Treatment Notes Treatment Clinical Notes Section Notes 06/07/2024 Ingrown nail (ICD-10 - L60.0) 06/07/2024 Diabetes mellitus without complication (ICD-10 - E11.9) 07/05/2024 Ingrown nail (ICD-10 - L60.0) 07/05/2024 Diabetes mellitus without complication (ICD-10 - E11.9) 06/07/2024 Pain in right toe(s) (ICD-10 - M79.674) 06/07/2024 Pain in left toe(s) (ICD-10 - M79.675) Plan Of Treatment No Information Insurance Providers Payer Name Payer Address Payer Phone Subscriber Number Group Number Insured Name Patient Relationship to Insured Coverage Start Date Coverage End Date Medicare National [employer] [address] [place] [address] [id number] [place] Self - patient is the insured 7 Medical (General) History Medical History History ICD Code Anxiety asthma Depression Kidney disease Reflux ( GERD) Diabetes mellitus Surgical History Surgery Date(Month/Year) kidney transplant 2020 shoulder replacement Left 2021
--- OUTSIDE RECORDS SUMMARY | 2024-08-01 08:05 | XMS_ITS | Encounter Summary ---
Author Organization [facility] Address [address] [place] [address] Care Team Providers Care Home Health Care Case Manager Name Role Phone Marce Alexandre STAN Unavailable Rob Lagunas MD Unavailable [phone] Eugene Tinoco DO Unavailable [phone] Unknown Primary Care Provider [phone] Encounter Details Date Type Department Care Team (Late st Contact Info) Description 09/27/2018 Telephone [facility] Transplant Program & [facility] [address] [facility] [address] [place] [address] Ilene Gale [place] Social History Tobacco Use Types Packs/Day Years Used Date Smoking Tobacco: Never Assessed Sex and Gender Information Value Date Recorded Sex Assigned at Not on file Gender Identity Not on file Sexual Orientation Not on file documented as of this encounter Miscellaneous Notes * Telephone Encounter - Ilene Gale - 09/27/2018 11:05 AM EDT I was asked by the Kidney team to see this patient on 09/26/18 during a clinic visit because the patient requested to see a rn case manager. I introduced myself to both the patient and Michelle, her foster mom. The patient explained to me she was frustrated because our team was asking her to have her blood drawn in order to proceed with evaluation. The patient stated she was a hard stick and did not want to get poked anymore . I explained to the patient our protocol of needing labs completed. During ourconversation, Michelle was on her cell phone having a personal call. I told the patient it was difficult to have a conversation with her with Michelle on the phone. The patient agreed it was difficult to converse. I then brought Michelle to the waiting room. The patient did agree to get her labs drawn and was asking to see Marce. I discussed with Marce the patients concerns regarding her labs. Marce was scheduled to see the patient after me. documented in this encounter Plan of Treatment Not on file documented as of this encounter Visit Diagnoses Not on filedocumented in this encounter Care Teams Home Health Care Case Manager Relationship Specialty Start Date End Date Unknown Unknow Provider Address PCP - General 08/20/21 [place] MarceSTAN [address] [address] Nurse Practitioner Surgery, Transplant 09/26/18 Rob Lagunas MD [address] [place] [address] Referring Provider Nephrology 09/26/18 Eugene Tinoco DO [address] [address] Primary Care Provider Family Medicine 09/26/18 documented as of this encounter
--- OUTSIDE RECORDS SUMMARY | 2024-08-01 08:05 | XMS_ITS | Encounter Summary ---
Author Organization [facility] Address [address] [place] [address] Care Team Providers Care Cork Insulation Installer Name Role Phone Marce Alexandre APRN Unavailable [phone] Rob Lagunas MD Unavailable [phone] Eugene Tinoco DO Unavailable [phone] Unknown Primary Care Provider [phone] Encounter Details Date Type Department Care Team (Late st Contact Info) Description 09/29/2018 Scanned Document [facility] Transplant Program & [facility] [address] [address] Keke Stockton [address] [address] Social History Tobacco Use Types Packs/Day Years Used Date Smoking Tobacco: Never Assessed Sex and Gender Information Value Date Recorded Sex Assigned at Not on file Gender Identity Not on file Sexual Orientation Not on file documented as of this encounter Plan of Treatment Not on file documented as of this encounter Visit Diagnoses Not on filedocumented in this encounter Care Teams Cork Insulation Installer Relationship Specialty Start Date End Date Unknown Unknow Provider Address PCP - General 08/20/21 Marce Alexandre APRN [address] [address] Nurse Practitioner Surgery, Transplant 09/26/18 Rob Lagunas MD [address] [place] [address] Referring Provider Nephrology 09/26/18 Euegne Tinoco DO [address] [address] Primary Care Provider Family Medicine 09/26/18 documented as of this encounter
--- OUTSIDE RECORDS SUMMARY | 2024-08-01 08:05 | XMS_ITS | Clinical Summary ---
Author Organization [facility] Address [address] [place] [address] Care Team Providers Care Arc Trimmer Name Role Phone Marce Alexandre STAN Unavailable [phone] Rob Lagunas MD Unavailable [phone] Eugene Tinoco DO Unavailable [phone] Unknown Primary Care Provider [phone] Allergies Active Allergy Reactions Criticality Noted Date Comments Lisinopril Unknown/Patient and Family Unable to Define Medium 09/26/2018 Ibuprofen Other (See Comments) 09/26/2018 Because of kidneys Shellfish-Derived Products Anaphylaxis High 09/26/2018 Sulfa Antibiotics Hives Medium 09/26/2018 Tramadol Unknown/Patient and Family Unable to Define Medium 09/26/2018 Hydrocodone-Acetaminop hen Itching Low 09/26/2018 Medications Medication Sig Dispensed Refills Start Date End Date Status calcium carbonate (TUMS) 500 MG chewable tablet Chew 1 tablet every 4 (four) hours as needed for indigestion or heartburn. Active fluticasone-vilanter ol (BREO ELLIPTA) 100-25 MCG/INH inhaler Inhale 1 puff daily. Acti ve docusate sodium (COLACE) 100 MG capsule Take 100 mg by mouth 2 (two) times a day. Active apixaban (ELIQUIS) 5 MG tablet Take 5 mg by mouth 2 (two) times a day. Active vitamin b complex-vitamin C-folic acid (NEPHROCAPS) 1 MG capsule Take 1 capsule by mouth daily. Active senna (SENOKOT) 8.6 MG Tab tablet Take 1 tablet by mouth 2 (two) times a day. Active amLODIPine (NORVASC) 10 MG tablet Take 10 mg by mouth every morning. 08/01/2021 Active calcitriol (ROCALTROL) 0.5 MCG capsule Take 0.5 mcg by mouth every morning. 07/18/2021 Active famotidine (PEPCID) 20 MG tablet Take 20 mg by mouth 2 (two) times a day. 07/25/2021 Active Miconazole 3 200 MG vaginal suppository Insert 1 suppository (200 mg total) into the vagina per week. 07/16/2021 Active PANTOprazole (PROTONIX) 20 MG tablet Take 20 mg by mouth every morning. 07/18/2021 Active sulfamethoxazole-tri methoprim (BACTRIM SS) 400-80 MG per tablet Take 1 tablet by mouth every morning. 07/18/2021 Active predniSONE (DELTASONE) 5 MG tablet Take 5 mg by mouth every morning. With food. Active mycophenolate (CELLCEPT) 250 MG capsule Take 500 mg by mouth 2 (two) times a day. Active sodium bicarbonate 650 MG tablet Take 1,300 mg by mouth 3 (three) times a day. Active tacrolimus (PROGRAF) 5 MG capsule Take 10 mg by mouth twice daily (every 12 hours). Active tacrolimus (PROGRAF) 1 MG capsule Take 3 mg by mouth 2 (two) times a day. Active folic acid (FOLVITE) 1 MG tablet Take 1 mg by mouth every morning. Active etonogestrel (Nexplanon) 68 MG implant 68 mg by Subdermal route once. Active albuterol (PROVENTIL HFA; VENTOLIN HFA) 108 (90 Base) MCG/ACT inhaler Inhale 2 puffs 4 times daily (every 6 hours) as needed for wheezing. Active Social History Tobacco Use Types Packs/Day Years Used Date Smoking Tobacco: Never Assessed Sex and Gender Information Value Date Recorded Sex Assigned at Not on file Gender Identity Not on file Sexual Orientation Not on file Last Filed Vital Signs Vital Sign Reading Time Taken Comments Blood Pressure 155/75 08/20/2021 2:53 PM EDT Pulse 90 08/20/2021 2:53 PM EDT Temperature 36.9 ??C (98.5 ??F) 08/20/2021 2:53 PM ED T Respiratory Rate 18 08/20/2021 2:53 PM EDT Oxygen Saturation 100% 08/20/2021 2:53 PM EDT Inhaled Oxygen Concentration - - Weight 114 kg (251 lb) 09/26/2018 3:14 PM EDT Height 167.6 cm (5' 6 ) 09/26/2018 3:14 PM EDT Body Mass Index 40.51 09/26/2018 3:14 PM EDT Plan of Treatment Health Maintenance Due Date Last Done Comments Hepatitis C Virus Screening 1975 DTaP/Tdap/Td Vaccines (1 - Tdap) 11/03/1995 Pneumococcal Vaccine: Pediat manny (0-5 Years) and At-Risk Patients (6 to 49 Years) (1 of 2 - PCV) 11/03/1995 Hepatitis B Vaccines (1 of 3 - Risk Dialysis 4-dose series) 1996 Pap Smear (Ages 21-65) 1997 Mammogram 2016 COVID-19 Vaccine (3 - Modern a risk series) 07/19/2020 06/21/2020, 05/23/2020 Colonoscopy 2021 Influenza Vaccine 11/18/2023 02/17/2021, , 01/18/2019, Additional history exists HIV Screening Completed 11/01/2020, 06/24/2018 Care Teams Arc Trimmer Relationship Specialty Start Date End Date Unknown Unknow Provider Address PCP - General 08/20/21 Marce Alexandre APRN [address] [place] [address] [place] [address] Nurse Practitioner Surgery, Transplant 09/26/18 Rob Lagunas MD [address] [place] [address] Referring Provider Nephrology 09/26/18 Eugene Tinoco DO [address] [place] [address] Primary Care Provider Family Medicine 09/26/18
--- OUTSIDE RECORDS SUMMARY | 2024-08-01 08:05 | XMS_ITS | Encounter Summary ---
Author Organization [facility] Address [address] [place] [address] Care Team Providers Care Information Strategist Name Role Phone Marce Alexandre APRN Unavailable [phone] Rob Lagunas MD Unavailable [phone] Alejandrina Eugene DO Unavailable [phone] Unknown Primary Care Provider [phone] Encounter Details Date Type Department Care Team (Late st Contact Info) Description 09/28/2018 Scanned Document [facility] [address] [address] Provider, MD Jason [address] [place] [address] Social History Tobacco Use Types Packs/Day Years Used Date Smoking Tobacco: Never Assessed Sex and Gender Information Value Date Recorded Sex Assigned at Not on file Gender Identity Not on file Sexual Orientation Not on file documented as of this encounter Plan of Treatment Not on file documented as of this encounter Visit Diagnoses Not on filedocumented in this encounter Care Teams Information Strategist Relationship Specialty Start Date End Date Unknown Unknow Provider Address PCP - General 08/20/21 Marce Alexandre APRN [address] [address] Nurse Practitioner Surgery, Transplant 09/26/18 Rob Lagunas MD [address] [place] [address] Referring Provider Nephrology 09/26/18 Eugene Tinoco DO [address] [address] Primary Care Provider Family Medicine 09/26/18 documented as of this encounter
--- OUTSIDE RECORDS SUMMARY | 2024-08-01 08:05 | XMS_ITS | Encounter Summary ---
Author Organization [facility] Address [address] [place] [address] Care Team Providers Care Inkjet Operator Name Role Phone Marce Alexandre APRN Unavailable Rob Lagunas MD Unavailable [phone] Eugene Tinoco DO Unavailable [phone] Unknown Primary Care Provider [phone] Encounter Details Date Type Department Care Team (Late st Contact Info) Description 09/27/2018 Scanned Document [facility] [address] [address] Rohini Hairston [place] [address] [address] Social History Tobacco Use Types Packs/Day Years Used Date Smoking Tobacco: Never Assessed Sex and Gender Information Value Date Recorded Sex Assigned at Not on file Gender Identity Not on file Sexual Orientation Not on file documented as of this encounter Plan of Treatment Not on file documented as of this encounter Visit Diagnoses Not on filedocumented in this encounter Care Teams Inkjet Operator Relationship Specialty Start Date End Date Unknown Unknow Provider Address PCP - General 08/20/21 Marce Alexandre APRN [address] [address] Nurse Practitioner Surgery, Transplant 09/26/18 Rob Lagunas MD [facility] [place] [address] Referring Provider Nephrology 09/26/18 Eugene Tinoco DO [address] [place] [address] Primary Care Provider Family Medicine 09/26/18 documented as of this encounter
--- OUTSIDE RECORDS SUMMARY | 2024-08-01 08:05 | XMS_ITS | Clinical Summary ---
Author Organization [facility], Address [address] [place] [address] Phone Care Team Providers Care Cardiac Nurse Name Role Phone Nissa Mckeon DO Primary Care Pro vider Active Problems Problem Noted Date Diagnosed Date Social problem not due to a mental disorder 03/21 Sleep apnea 04/18/2020 Sepsis caused by Staphylococcus aureus 0 Postprocedural blebitis 04/18/2020 Pneumonia 04/18/2020 Pain in right hip joint 04/18/2020 Osteoarthritis 04/18/2020 Nephrotic syndrome, focal and segmental glomerul ar lesions 04/18/2020 Iron deficiency anemia 04/18/2020 Interstitial pulmonary disease 04/18/2020 Hypoparathyroidism 04/18/2020 Hypervolemia 04/18/2020 End stage renal failure on dialysis 04/18/2020 Overview (04/18/2020): Goes [facility] 2x[facility], as No Bolt [facility]er in area will take her as patient due past poor behavior and non-compliance. Disorder of kidney and/or ureter 04/18/2020 Dependence on hemodialysis due to end stage jennifer l disease 04/18/2020 Deficiency of macronutrients 04/18/2020 Constipation 04/18/2020 Chronic kidney disease due to hypertension 04/18 Chronic diastolic heart failure 04/18/2020 Blood coagulation disorder 04/18/2020 Bipolar disorder 04/18/2020 Bacteremia 04/18/2020 Anemia in chronic kidney disease 04/18/2020 Allergic rhinitis 04/18/2020 Acute upper respiratory infection 04/18/2020 Acute exacerbation of chronic obstructive pulmon jake disease 04/18/2020 Hidradenitis suppurativa 04/18/2020 Overview (04/18/2020): Wound care follow up Dr. Mcbride Anxiety disorder 04/18/2020 Arteriovenous fistula infection 01/18/2019 Gastroesophageal reflux disease 03/04/2017 Eczema 03/04/2017 Candidiasis of vulva 03/04/2017 Borderline personality disorder 03/04/2017 Overview (04/18/2020): Non-compliant with psych f/u. Non-compliant with psych f/u. Hyperlipidemia 03/04/2017 Hypertensive disorder 03/04/2017 Obesity 08/09/2008 Overview (04/18/2020): BMI = 37.3 08/09/08 BMI = 37.3 08/09/08 Encounters Date Type Department Care Team Description 07/17/2024 Telephone [facility] [address] [place] [address] Nereida Almanzar from Last 3 Months Social History Tobacco Use Types Packs/Day Years Used Date Smoking Tobacco: Former Comments Unknown Sex and Gender Information Value Date Recorded Sex Assigned at Not on file Legal Sex Female 4:34 PM EST Gender Identity Not on file Sexual Orientation Not on file Last Filed Vital Signs Vital Sign Reading Time Taken Comments Blood Pressure 125/80 09/27/2020 10:21 AM EDT Pulse 76 09/27/2020 10:21 AM EDT Temperature 36.6 ??C (97.9 ??F) 09/27/2020 10:21 AM E DT Respiratory Rate - - Oxygen Saturation 99% 09/27/2020 10:21 AM EDT Inhaled Oxygen Concentration - - Weight 113 kg (248 lb 14.4 oz) 09/27/2020 10:21 AM EDT Height 167.6 cm (5' 6 ) 09/27/2020 10:21 AM EDT Body Mass Index 40.17 09/27/2020 10:21 AM EDT Plan of Treatment Health Maintenance Due Date Last Done Comments Hepatitis B Vaccine (1 of 3 - 19+ 3-dose series) 11/03/1995 08/09/2008, 07/19/2008, 03/06/2008 Pneumococcal Vaccine: Peds ( 0 to 5 Years) and At-Risk Patients (6 to 49 Years) (3 of 3 - PPSV23, PCV20 or PCV21) 11/29/2022 11/29/2017, 05/31/2017 Influenza Vaccine (Season Ended) 2024 01/19/20 19, 03/02/2017 Pneumococcal Vaccine: 50+ Years Discontinued 8, 05/31/2017 Insurance Medicare Medicaid [place] Care Teams Cardiac Nurse Relationship Specialty Start Date End Date Nissa Mckeon DO PCP - General 04/29/20
--- OUTSIDE RECORDS SUMMARY | 2024-08-01 08:05 | XMS_ITS ---
Author Organization [facility] Address [address] [place] [address] Care Team Providers Care Vice President Of Sales Name Role Phone Alexx Baum Primary Care Provider Unavailab Nan Roper Unavailable [phone] Allergies Allergen (clinical drug ingredient) Drug/Non Drug [...] Unknown Drug Allergy Active REASON FOR VISIT PCP: 01/2024, Ingrown Nail Medications Medication SIG (Take, Route, Frequency, Duration) Notes Start Date End Date Status Renvela 800 MG Orally Unkno wn B Complex Vitamins Plus 1 mg Unknown Vitamin D3 2000 UNIT Orally Unknown Zofran 4 MG Orally Unknown Senexon 8.6 MG Orally Unkno wn oxyCODONE HCl 15 MG Orally Unknown Nephrocaps 1 MG Orally Unkn own Metoprolol Tartrate 25 MG Orally Unknown Lactulose 20 GM Orally Unkn own Protonix 40 MG Orally Unkno wn Calcium Carbonate 500 MG Orally Unknown Breo Ellipta 100-25 MCG/INH Inhalation Unknown Ethyl Chloride 100% Unknown Diphenhydramine 25 mg Unknown Eliquis 2.5 MG Orally Unkno wn Clotrimazole-Betamethasone Active Docusate Sodium 100 MG 1 capsule as need ed Orally Active Ergocalciferol Activ e Albuterol Sulfate 90 mcg Unknown Azithromycin 500 MG 1 tablet Orally once a day 05/29/2024 Active Estradiol Active metroNIDAZOLE Active Lidocaine Active Famotidine 20 MG 1 tablet at bedtime as needed Orally twice a day 05/29/2024 Active Flucytosine 500 MG as directed Orally 05/29/2024 Active Senna 8.6 MG 2 capsules at bedtim e as needed Orally Once a day 05/29/2024 Active Mycophenolate Mofetil 250 MG 1 capsule Orally Twice a day Active Mounjaro 15 MG/0.5ML as directed Subcutaneous 05/20 Active Nexplanon 68 MG as directed Subcutaneous Active Pantoprazole Sodium 40 MG 1 tablet 1/2 t o 1 hour before morning meal Orally Once a day Active Tacrolimus 1 MG as directed Orally 05/29/2024 Active Tacrolimus 5 MG as directed Orally Active Amlodipine & Diet Manage Prod Active Glucose Meter Test A ctive Acetaminophen 500 MG 1 tablet as needed Orally every 6 hrs Active Social History Tobacco Use: Social History [...] ast year? No Points 0 Interpretation Negative Vital Signs Height 5ft6in in 07/05/2024 Weight 198 lbs 07/05/2024 BMI 31.95 kg/m2 07/05/2024 Blood pressure systolic 113 mm Hg 07/06/19 25 Blood pressure diastolic 65 mm Hg 025 Encounters Encounter Location Date Provider Diagnosis [facility] [place] [address] [place] [address] 07/05/2024 Nan Phillips Ingrown nail L60.0 and Diabetes mellitus without complication E11.9 Assessments Encounter Date Diagnosis (ICD Code) Assessment Notes Treatment Notes Treatment Clinical Notes Section Notes 07/05/2024 Ingrown nail (ICD-10 - L60.0) 07/05/2024 Diabetes mellitus without complication (ICD-10 - E11.9) Plan Of Treatment Next Appt Details Follow [...] Motrin was recommended for pain or discomfort - 16969 Anesthesia 3cc of 1 percent Lid ocaine Plain local anesthesic utilizing aseptic technique Location Bilateral nail borde r, T5 Progress Notes * Dara ROBLES RDOB:1975 (48 yo F)Acc No.[id number]:07/05/2024 Progress Note Patient:?Dara ROBLES Provider:?Nan Phillips DPM :1975???Age:48 Y???Sex:Female D ate:07/05/2024 Address:[address] [place] [address] Pcp:Alexx Baum Subjective: * Chief Complaints: * ???PCP: 01/2024Ingrown Nail * ROS:?General/Constitutional:?Nausea?denies.?Vomiting?denies.?Hunger Thirst?denies.?Loss appetite?denies.?Chills?denies.?Fatigue?denies.?Fever?denies.?Night Sweats?denies.?Unexplained weight loss?denies.?Unexplained [...] arthritis, kidney/liver disease.? * Social History:?Tobacco Use:?Tobacco use other than smoking?Are you an other tobacco user??No ?Tobacco Control (Standard)?Tobacco use:?Current smoker ?When did you start smoking??06/18/2004 ?How often do you smoke cigarettes??Every day ?How many cigarettes a day do you smoke??6-10 ?How soon after you wake up do you smoke your first cigarette??6-30 minutes ?Are you interested in quitting??Thinking about quitting ?Additional Findings: Tobacco user?Moderate cigarette smoker (10-19 cigs/day) ???Drugs/Alcohol:?Drugs?Have you used drugs other than those for medical reasons in the past 12 months??No ???Miscellaneous:?Caffeine: no, none,. ?Children: no. ?Exercise: no. ?Marital status: single. ?Occupation: disability. ???Drug/Alcohol:?AUDIT-C (Standard)?Did you have a drink containing alcohol in the past year??No ?Points?0 ?Interpretation?Negative * Medications:?TakingGlucose M eter Test Amlodipine & [...] patient * Allergies:?BactrimAdvilAleve MotrinBetadineUltramVicodinLisinoprilShellfish- derived ProductsTramadolIbuprofenoxyCODONE-AcetaminophenPovidone I vydwoFyxrwiigpjodkyvq-UpbzrnneupvsAQKLQkoklpr-UdbpiofcaklcvJsfblbjfomsmfaev[Jose Miguel rgies Verified] Objective: * Vitals:?Ht:5ft6in, Wt:198, B PR:31.95, Shoe size:10, BP:113/65mm Hg, BS:89, Ht- cm: 167.64 cm, Wt-k.81 kg. * ???Past Orders: ???Lab:HEMOGLOBIN A1C (GLYCO HEMOGLOBIN) (Order Date - 01/18/2024) (Collection Date & Time - 01/18/2024 09:44 AM) ? Value Reference Range ?HEMOGLOBIN A1C % (HH) 6.0 * Examination: ???Ophthalmology Referral: ?DIABETES EYE EXAM?Procedure Performed:?Yes ?Date of Exam Performed?01/19/2024 ?Diabetic Retinopathy Screening:?Yes ?Retinal Screening Performed:?Yes ?Findings of Diabetic Eye Exam:?no retinopathy?Ingrown Nail: ?INSPECTION:?Reveals nail incurvation, pain on palpation, groove hypertrophy, Bilateral nail borders, T5.? Assessment: * Assessment: 1.?Ingrown nail - L60.0 (Jacquie malvin)???2.?Diabetes mellitus without complication - E11.9??? Plan: * Treatment: * Procedures:?Nail Avulsion:?Location?Bilateral nail border, T5.?Anesthesia?3cc of 1 percent Lidocaine Plain local anesthesic [...] Motrin was recommended for pain or discomfort - 69927.? * Procedure Codes:?95601 Avuls ion Plate, Modifiers: T5 * Follow Up:?prn * Images: * Sign off status: Completed true * Provider:?Nan Phillips DPM Date:? Generated for Mona tran/Spencer/Stacia on:?08/01/2024 08:04 AM EDT History and Physical Notes * Examination Category Sub-Category Detail Notes Category Not es Ingrown Nail INSPECTION: Reveals nail inc urvation, pain on palpation, groove hypertrophy, Bilateral nail borders, T5 Ophthalmology Referral DIABETES EYE EXAM Procedu re Performed:: Yes ?Date of Exam Performed: 01/19/2024 Diabetic Retinopathy Screening:: Yes Retinal Screening Performed:: Yes Findings of Diabetic Eye Exam:: no retin opathy
--- OUTSIDE RECORDS SUMMARY | 2024-08-01 08:05 | XMS_ITS | Encounter Summary ---
Author Organization [facility], Address [address] [place] [address] Phone Care Team Providers Care Software Specialist Name Role Phone TejalveronicaNissa Fu DO Primary Care Pro vider Encounter Details Date Type Department Care Team ([facility] Contact Info) Description 05/27/2020 Telephone [facility] [address] [place] [address] Danna Jain [address] [place] [address] Social History Tobacco Use Types Packs/Day Years Used Date Smoking Tobacco: Former Comments Unknown Sex and Gender Information Value Date Recorded Sex Assigned at Not on file Legal Sex Female 4:34 PM EST Gender Identity Not on file Sexual Orientation Not on file COVID-19 Exposure Response Date Recorded In the last month, have you been in contact with someone who was confirmed or suspected to have Coronavirus / COVID-19? No / Unsure 05/27/2020 10:41 AM EST documented as of this encounter Plan of Treatment Not on file documented as of this encounter Procedures Procedure Name Priority Date/Time Associated Diagnosis Comments SARS COV 2 BY PCR () Routine 05/27/2020 11:56 AM EST documented in this encounter Results * SARS-CoV-2 by PCR (05/27/2020 11:56 AM EST) Coronavirus COVID-19 PCR NEGATIVE (NEG) [facility] Comment: 2019-novel Coronavirus (2019-nCoV) not detected by real-time RT-PCR. Note: If clinical suspicion for COVID-19 is high, continue to maintain precautions and consider repeat testing. Result reported to the [facility]. To prevent errors in diagnosis, test results should be interpreted in the context of clinical findings and other laboratory data. Rare polymorphisms exist that could lead to false-negative or false-positive results. If results obtained do not match the clinical findings, additional testing should be considered. This test has been authorized by the FDA under an Emergency Use Authorization (EUA) for use by authorized laboratories. Testing performed by real time PCR utilizing [facility] [employer] SARS-CoV-2 test. SARS-CoV-2 Source [facility] Comment: Testing performed or reported by [facility], a Service of [facility], [address] [place] [address] Danyel Ponce MD, Pumping Supervisor 05/27/2020 11:5 6 AM EST 05/27/2020 2:49 PM EST Christiane Garay MD LAB HISTORICAL-CONVERSIONS- UNSOLICITED RESULTS Final Result [facility] documented in this encounter Visit Diagnoses Not on filedocumented in this encounter Care Teams Software Specialist Relationship Specialty Start Date End Date Nissa Mckeon DO PCP - General 04/29/20 documented as of this encounter
--- NOTE | 2024-08-01 08:09 | A.OFFPC_ITS ---
Vital Signs 08/01/24 08:10 Height 5 ft 6 in Weight 200 lb BMI 32.3 BP 120/72 Blood Pressure Location Lt brachial Position Sitting Pulse 76 Pulse Source Pulse Oximeter Temp 97.4 F Temp Source Temporal Artery Scan Pulse Oximetry (%) 99 Oxygen Delivery Method Room Air Intake Visit Reasons: Annual Exam Intake Note: Patient is here today for a physical. Editor Farm Journal Required: No Process Inspector: Not Required per policy Accompanied by: Self / Same As Patient Allergies lisinopril [LISINOPRIL] Allergy (Intermediate, Verified 08/01/24 08:16) EYES SWELL SHUT, angioedema, angioedema tramadol [TRAMADOL] Allergy (Intermediate, Verified 08/01/24 08:16) HIVES piperacillin [Zosyn] Allergy (Mild, Verified 08/01/24 08:16) rash cefazolin Allergy (Unknown, Verified 08/01/24 08:16) Unknown hydrocodone [From VICODIN] Allergy (Unknown, Verified 08/01/24 08:16) UNKNOWN ibuprofen [From Motrin] Allergy (Unknown, Verified 08/01/24 08:16) Unknown shellfish derived Allergy (Unknown, Verified 08/01/24 08:16) Unknown Sulfa (Sulfonamide Antibiotics) [SULFA (SULFONAMIDE ANTIBIOTICS)] Allergy (Unknown, Verified 08/01/24 08:16) UNKNOWN vancomycin Allergy (Unknown, Verified 08/01/24 08:16) rash azithromycin Adverse Reaction (Intermediate, Verified 08/01/24 08:16) dizziness/AVERY Medication List - Last Reconciled 08/01/24 by Alexx Baum PA-C acetaminophen ER 650 mg PO Q12H 30 days albuterol sulfate 2.5 mg (3 mL) inhalation Q6H PRN 15 days albuterol sulfate 90 mcg/actuation 1 inh inhalation QID PRN 6 months amlodipine 1 tab PO DAILY benzocaine-menthol 15-2.6 mg (Cepacol Sore Throat (benzocaine-menthol)) 1 sammie mucous membrane Q2-4H PRN blood sugar diagnostic (OneTouch Verio test strips) As directed chlorhexidine gluconate 4% (Hibiclens) topical docusate sodium (Dulcolax Stool Softener (docusate)) 1 cap PO BID ergocalciferol (vitamin D2) 1,250 mcg PO QWEEK estradiol 0.01%(0.1mg/gram) vaginal etonogestrel (Nexplanon) 68 mg subdermal DAILY famotidine (Pepcid) 20 mg PO DAILY gentamicin 0.3% 1 drp ophthalmic (eye) Q8H 5 days guaifenesin 200 mg (5 mL) PO Q4H PRN lancets (OneTouch Delica Plus Lancet) As directed mycophenolate mofetil (CellCept) 500 mg PO BID nebulizers (AeroEclipse II Nebulizer) As directed pantoprazole 40 mg PO DAILY sennosides (senna) 8.6 mg PO BID sodium citrate-citric acid 500-334 mg/5 mL 10 mL PO BID tacrolimus 3 mg PO Q12H tacrolimus 10 mg PO Q12H tirzepatide (Mounjaro) mg subcut valganciclovir mg PO Tobacco use date assessed: 08/01/24 Dental Screening Dental Screen Date: 08/01/24 Did you have a dental visit in the last 12 months?: Yes Did you have a dental problem in the last 6 months where you did not have access to dental care?: No Was dental information given to patient?: Patient has dentist HPI Annual Exam HPI Details Patient is a 48 year female here today for for routine annual physical .? Patient has a past medical history si gnificant for pulmonary embolism on anticoagulation, GERD, Asthma, Iron def anemia,? obesity, DMII, end-stage renal disease status post kidney transplant, chronic lumbar spine pain. .. .. Kidney transplant recipient:? Has a history of chronic kidney disease stage 5 with status post kidney transplant in September 2020 at [facility]. The patient reports issues in maintaining her nephrology care due to an unresolved conflict at the [facility] clinic, preventing her from securing new care providers for her transplant maintenance. She is currently trying to get mediation with the kidney transplant clinic to continue her care. ? We did discuss this is inappropriate to have primary care manage her anti-rejection drugs in monitor her transplant kidneys. She reports she is not able to establish care with any other transplant load checker in the area. .. DMII:? Has developed diabetes likely secondary to chronic prednisone use and her obesity. She continues on Mounjauro and has lost any significant amount of weight has better glycemic control., Today's A1c 5.3. 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 Vaccines: Up-to-date with COVID vaccine, flu vaccine, pneumonia vaccine and tetanus vaccine [facility] Medical History History of pulmonary embolism Chronic kidney disease Ankylosing spondylitis of lumbar region Right lumbar radiculopathy Surgical History S/P kidney transplant Status post dialysis Hx of bilateral breast reduction surgery Family History Mother No problems noted. Father No problems noted. Brother Substance abuse Social History Household Members: None Housing: Apartment Are you a primary home day care provider to a significant other at home: No Do you presently have visiting nurse or other home services: No Alcohol intake: never Patient Tobacco Use Status: Former Tobacco user Years Smoked: 15 e-Cigarette/Vaping Use: Never Used Second Hand Smoke Exposure: Yes Advance Directives Date on File: 02/26/20 service: No Current occupational status: disabled Gender identity: Female Cognitive needs: No Hearing needs: No Vision needs: Yes (Glasses) Female Reproductive History Menstrual Age of Menarche: 17 Questionnaire PHQ-9 Over the last 2 weeks, how often have you been bothered by any of the following problems? 1. Little interest or pleasure in doing things: not at all 2. Feeling down, depressed, or hopeless: not at all 3. Trouble falling or staying asleep, or sleeping too much: not at all 4. Feeling tired or having little energy: not at all 5. Poor appetite or overeating: not at all 6. Feeling bad about yourself - or that you are a failure or have let yourself or your family down: not at all 7. Trouble concentrating on things, such as reading the newspaper or watching television: not at all 8. Moving or speaking so slowly that other people could have noticed. Or the opposite - being so fidgety or restless that you have been moving around a lot more than usual: not at all 9. Thoughts that you would be better off or of hurting yourself in some way: not at all Total score: 0 Depression Screening Interpretation: Negative Depression Screening Done: Yes 05792 - PHQ-9 Billing: Yes Source: Developed by Drs. Han Marcelo, Halle Robles, Dexter Medrano and colleagues, with an educational tigre from [employer]. Thrive Questionnaire Date Thrive assessed: 08/01/24 I am a: Patient What is your living situation today?: I choose not to answer this question Within the past 12 months, did the food you bought not last and you didn't have the money to get more?: I choose not to answer this question Within the past 12 months, did you worry whether your food would run out before you got money to buy more?: I choose not to answer this question Do you have trouble paying for medicines?: I choose not to answer this question Do you have trouble getting transportation to medical appointments?: I choose not to answer this question Do you have trouble paying your heating and electricity bill?: I choose not to answer this question Do you have trouble taking care of your child, family member or friend?: I choose not to answer this question Do you have trouble with day-to-day activities such as bathing, preparing meals, shopping, managing finances, etc.?: I choose not to answer this question Are you currently unemployed and looking for a job?: I choose not to answer this question Are you interested in more education?: I choose not to answer this question Please select the resources that you would like help with: None Currently or been in a relationship where the following occur: I choose not to answer THRIVE Score: 0 AUDIT C Alcohol Use Questionnaire (AUDIT-C) 1. How often do you have a drink containing alcohol?: Never Total Score: 0 VIRIDIANA-7 AMB Questionnaire VIRIDIANA-7 Date VIRIDIANA - 7 assessed: 08/01/24 Feeling nervous, anxious, or on edge: 0 = Not at all Not being able to stop or control worryin = Not at all Worrying too much about different things: 0 = Not at all Trouble relaxin = Not at all Being so restless that it is hard to sit still: 0 = Not at all Becoming easily annoyed or irritable: 0 = Not at all Feeling afraid as if something awful might happen: 0 = Not at all Total VIRIDIANA-7 score (0-4 normal; 5-9 mild; 10-14 moderate; 15-21 severe): 0 Source: Developed by Drs. Han Marcelo, Halle Robles, Dexter Medrano and colleagues, with an educational tigre from [employer]. VIRIDIANA-7 Assessment Billing VIRIDIANA-7 Assessment Tool: VIRIDIANA-7 Assessment 24497 Review of Systems Const Denies body aches, Denies chills, Denies excessive sweating, Denies fatigue, Denies fever(s) and Denies headache(s) Eyes Denies blurry vision ENT Denies dysphagia, Denies vertigo, Denies dizziness, Denies headache(s), Denies hearing loss and Denies tinnitus Card Denies chest pain, Denies chest pain with activity, Denies syncope, Denies irregular heart rhythm and Denies dyspnea Resp Denies chest congestion, Denies cough, Denies hemoptysis, Denies dyspnea and Denies wheezing GI Denies abdominal pain, Denies melena, Denies hematochezia, Denies coffee ground emesis, Denies dysphagia, Denies diarrhea, Denies nausea and Denies vomiting Denies urinary frequency, Denies dysuria, Denies urinary hesitancy and Denies urinary urgency Musc Denies arthralgias, Denies limited range of motion, Denies muscle cramps and Denies muscle weakness Skin/Breast Denies rash and Denies skin ulcer Neuro Denies Abnormal speech present, Denies confusion, Denies vertigo, Denies dizziness, Denies syncope, Denies headache(s), Denies memory loss and Denies seizure-like activity Psych Denies anxiety, Denies confusion, Denies depression, Denies memory loss, Denies panic attacks and Denies paranoia Endo Denies excessive sweating, Denies fatigue, Denies flushing, Denies polydipsia and Denies polyuria Aller/Immun Denies wheezing Physical exam (Primary Care) Vital Signs: Last Vital Signs Temp 97.4 F 08/01/24 08:10 Pulse 76 08/01/24 08:10 BP 120/72 08/01/24 08:10 Pulse Ox 99 08/01/24 08:10 Oxygen Delivery Method Room Air 04/15/25 08:10 BMI result Body Mass Index 32.3 BMI Assessment/Plan discussion: High BMI High, discussed plan: lifestyle, weight reduction, dietary and physical activity Tobacco/Smoking Status: Tobacco use Status Tobacco use date assessed 08/01/24 08/01/24 08:15 Patient Tobacco Use Status Former Tobacco user 08/01/24 08:15 e-Cigarette/Vaping Use Never Used 08/01/24 08:15 PHQ-9: PHQ-9 Score PHQ-9: Total score 0 08/01/24 08:44 Depression Screening Interpretation: Negative Thrive Assessment: Date of Thrive Assessment Date Thrive assessed 08/01/24 08/01/24 08:15 Currently or been in a relationship where the following occur: I choose not to answer Const General: cooperative, comfortable, no acute distress, alert and awake; No confusion Orientation/consciousness: oriented to person, oriented to place, patient oriented x3 and No confusion HENMT Head: Yes normocephalic Ears: external ears normal and TM's normal bilaterally Face and sinus: No sinus tenderness Mouth: Normal oral and palatal mucosa present and tongue normal Teeth and gingiva: dentition normal and gingiva normal Throat: Yes posterior oropharynx normal, Yes tonsils normal and Yes uvula midline Eyes Conjunctivae: conjunctivae normal Sclerae: sclerae normal Pupils: Equal, round and reactive pupils present EOM: EOMs intact bilaterally Direct Ophthalmoscopy: No no photophobia Neck Neck: Yes no lymphadenopathy, No tender and Yes no JVD Thyroid: Thyroid normal Carotids: no bruits Chest Chest palpation & inspection: no tenderness Resp Effort & Inspection: normal respiratory effort, no audible wheezes, not labored and no stridor Auscultation: no crackles, no rales, no rhonchi and no wheezes Cardio Jugular venous distension: no JVD Rate: regular rate, not bradycardic and not tachycardic Rhythm: regular rhythm Bruits: no carotid bruits Peripheral pulses: Peripheral pulses 2+ throughout GI Inspection: Yes normal to inspection, No abdominal wall ecchymosis and No visible herniation Palpation (GI): Soft to palpation, nontender, no guarding, not rigid and No hepatosplenomegaly present Auscultation: normoactive bowel sounds General: Yes no CVA tenderness Back/Spine/Pelvis Back: no CVA tenderness and No back tenderness Cervical Spine: cervical ROM normal Thoracic/Lumbar Spine: thoracic and lumbar spine normal to inspection, straight leg raise negative bilaterally, No thoraco-lumbar ROM limited and No lumbar spinal tenderness Skin Lesions: no lesions Rashes: no rashes Wounds: no wounds Neuro General: oriented to person, oriented to place, patient oriented x3, CN's II-XI intact bilaterally and No confusion Cranial nerves: Yes Equal, round and reactive pupils present and Yes Normal accommodation reflex present Cognition (Neuro): normal cognition Speech: No Abnormal speech present Gait exam (Neuro): Normal gait present Motor exam (neuro): 5/5 motor strength present throughout Extrem Right upper extremity: full ROM; no cyanosis Left upper extremity: full ROM; no cyanosis Right lower extremity: no edema Left lower extremity: no edema Psych Appearance: grossly normal Mental Status: mental status grossly normal Affect: normal affect Attitude: cooperative Thought process: Normal thought process present Results AMB Hemoglobin A1c AMB Hemoglobin A1c 5.3 % Last Edit by MAYO Fernandes on 08/01/24 08:45 Results Reviewed Results Reviewed: Laboratory Last Values Hgb A1c (Clinic) 5.3 % (4.0-6.0) 08/01/24 08:39 Coding Level of Care Code Est Pt Prev Care 40-64y(99813) Diagnoses Annual physical exam Z00.00 Type 2 diabetes mellitus with hyperglycemia, without long-term current use of insulin E11.65 Diabetes mellitus complication status: with hyperglycemia Diabetes mellitus terminologist insulin use: without terminologist use ESRD (end stage renal disease) N18.6 Ankylosing spondylitis of lumbar region M45.6 Pulmonary embolism, other, unspecified chronicity, unspecified whether acute cor pulmonale present I26.99 Acute cor pulmonale presence: unspecified Chronicity: unspecified Pulmonary embolism type: other Class 1 obesity E66.811 V-tach I47.20 Additional Codes PHQ-9 - 55411 - PHQ-9 Billing: Yes ([id number]) VIRIDIANA-7 Assessment Billing - VIRIDIANA-7 Assessment Tool: VIRIDIANA-7 Assessment [id number] ([id number]) Assessment & Plan Assessment & Plan (1) Annual physical exam: Code(s): Z00.00 - Encounter for general adult medical examination without abnormal fin dings Category: Medical Plan: As per HPI (2) DMII (diabetes mellitus, type 2): Code(s): E11.9 - Type 2 diabetes mellitus without complications Category: Medical Qualifiers: Diabetes mellitus complication status: with hyperglycemia Diabetes mellitus terminologist insulin use: without terminologist use Qualified Code(s): E11.65 - Type 2 diabetes mellitus with hyperglycemia Plan: Patient's type 2 diabetes well controlled on current antihyperglycemic medication. Goal A1c is to remain below 7.0. (3) ESRD (end stage renal disease): Code(s): N18.6 - End stage renal disease Category: Medical Plan: Patient is status post kidney transplant in 2020. As per HPI there has been some personal conflicts at the transplant clinic. She is trying to reestablish her care at the [facility] Nephrology transplant clinic. (4) Ankylosing spondylitis of lumbar region: Comment: Decided to stay of low dose oxycodone and not try Buprenorphine Code(s): M45.6 - Ankylosing spondylitis lumbar region Category: Medical Plan: Continues to have chronic lower back pain those managed with Tylenol on a p.r.n. basis. (5) Pulmonary embolism: Code(s): I26.99 - Other pulmonary embolism without acute cor pulmonale Category: Medical Qualifiers: Acute cor pulmonale presence: unspecified Chronicity: unspecified Pulmonary embolism type: other Qualified Code(s): I26.99 - Other pulmonary embolism without acute cor pulmonale Plan: Has a history of pulmonary embolism. Was previously on anticoagulation though now off of the medication. (6) Class 1 obesity: Code(s): E66.811 - Obesity, class 1 Category: Medical Plan: Patient does understand her BMI is over 30 and will continue on GLP 1 to help her lose weight. She has been trying to work on dietary modifications and being more physically active. (7) V-tach: Code(s): I47.20 - Ventricular tachycardia, unspecified Category: Medical Plan: She was found to have a short run of V-tach during her sleep study. Has been referred to Cardiology in his awaiting an appointment. Orders: Orders AMB Hemoglobin A1c Today E11.65 - Type 2 diabetes mellitus with hyperglycemia Comprehensive [place]. Panel Fast Today E11.65 - Type 2 diabetes mellitus with hyperglycemia Complete Blood Count no Diff Today D50.0 - Iron deficiency anemia secondary to blood loss (chronic) IRON PROFILE Today D50.0 - Iron deficiency anemia secondary to blood loss (chronic), D50.9 - Iron deficiency anemia, unspecified
[2024-08-01 08:10] VITALS: BP 120/72; PULSE 76; TEMP 36.3; O2SAT 99; BMI 32.3
== END 2024-08-01 08:52 | disposition home or self-care (01) ==
LOC: HO.HMCH 08:00
PROVIDERS: PCP Physician Assistant; Visit Provider Physician Assistant
DX: Z00.00 Encounter for general adult medical examination without abnormal findings (principal); E11.65 Type 2 diabetes mellitus with hyperglycemia; N18.6 End stage renal disease; M45.6 Ankylosing spondylitis lumbar region; I26.99 Other pulmonary embolism without acute cor pulmonale; I47.20 Ventricular tachycardia, unspecified; E66.811 Obesity, class 1

== ENCOUNTER → 2024-08-01 08:00 | Outpatient (BNVA) | payer MEDICARE, MEDICAID, SELFPAY | PROVIDERS: PCP Physician Assistant; Visit Provider Physician Assistant | DX: Z00.00 Encounter for general adult medical examination without abnormal findings (principal); E11.65 Type 2 diabetes mellitus with hyperglycemia; N18.6 End stage renal disease; M45.6 Ankylosing spondylitis lumbar region; I26.99 Other pulmonary embolism without acute cor pulmonale; E66.811 Obesity, class 1; Z68.32 Body mass index [BMI] 32.0-32.9, adult; I47.20 Ventricular tachycardia, unspecified; Z71.3 Dietary counseling and surveillance | CPT/HCPCS: 83036; 96127; 99396 ==

== ENCOUNTER 2024-09-01 09:43 | Outpatient (AMB) | payer MEDICARE, MEDICAID, SELFPAY ==
--- NOTE | 2024-09-01 09:44 | MHC.PC.OV ---
Vital Signs 09/01/24 09:45 Height 5 ft 6 in Weight 204 lb BMI 32.9 BP 120/72 Blood Pressure Location Lt brachial Position Sitting Pulse 78 Pulse Source Pulse Oximeter Temp 97.1 F Temp Source Temporal Artery Scan Pulse Oximetry (%) 99 Oxygen Delivery Method Room Air Intake Visit Reasons: lump on breast Intake Note: Patient is here to follow up on Lump on breast. Ambulance Operations Supervisor Required: No Facility Maintenance Mechanic: Not Required per policy Accompanied by: Self / Same As Patient Allergies lisinopril [LISINOPRIL] Allergy (Intermediate, Verified 09/01/24 09:57) EYES SWELL SHUT, angioedema, angioedema tramadol [TRAMADOL] Allergy (Intermediate, Verified 09/01/24 09:57) HIVES piperacillin [Zosyn] Allergy (Mild, Verified 09/01/24 09:57) rash cefazolin Allergy (Unknown, Verified 09/01/24 09:57) Unknown hydrocodone [From VICODIN] Allergy (Unknown, Verified 09/01/24 09:57) UNKNOWN ibuprofen [From Motrin] Allergy (Unknown, Verified 09/01/24 09:57) Unknown shellfish derived Allergy (Unknown, Verified 09/01/24 09:57) Unknown Sulfa (Sulfonamide Antibiotics) [SULFA (SULFONAMIDE ANTIBIOTICS)] Allergy (Unknown, Verified 09/01/24 09:57) UNKNOWN vancomycin Allergy (Unknown, Verified 09/01/24 09:57) rash azithromycin Adverse Reaction (Intermediate, Verified 09/01/24 09:57) dizziness/AVERY Medication List - Last Reconciled 09/01/24 by Jeana Cornelius PA-C acetaminophen ER 650 mg PO Q12H 30 days albuterol sulfate 2.5 mg (3 mL) inhalation Q6H PRN 15 days albuterol sulfate 90 mcg/actuation 1 inh inhalation QID PRN 6 months amlodipine 1 tab PO DAILY benzocaine-menthol 15-2.6 mg (Cepacol Sore Throat (benzocaine-menthol)) 1 sammie mucous membrane Q2-4H PRN blood sugar diagnostic (Itandiuch Verio test strips) As directed chlorhexidine gluconate 4% (Hibiclens) topical docusate sodium (Dulcolax Stool Softener (docusate)) 1 cap PO BID ergocalciferol (vitamin D2) 1,250 mcg PO QWEEK estradiol 0.01%(0.1mg/gram) vaginal etonogestrel (Nexplanon) 68 mg subdermal DAILY famotidine (Pepcid) 20 mg PO DAILY gentamicin 0.3% 1 drp ophthalmic (eye) Q8H 5 days guaifenesin 200 mg (5 mL) PO Q4H PRN lancets (OneTouch Delica Plus Lancet) As directed mycophenolate mofetil (CellCept) 500 mg PO BID nebulizers (AeroEclipse II Nebulizer) As directed pantoprazole 40 mg PO DAILY sennosides (senna) 8.6 mg PO BID sodium citrate-citric acid 500-334 mg/5 mL 10 mL PO BID tacrolimus 3 mg PO Q12H tacrolimus 10 mg PO Q12H tirzepatide (Mounjaro) mg subcut valganciclovir mg PO Tobacco use date assessed: 09/01/24 Dental Screening Dental Screen Date: 08/01/24 HPI lump on breast HPI Details 48-year-old female with past medical history of ESRD, obstructive sleep apnea, iron deficiency anemia, diabetes mellitus, GERD, asthma, anxiety last seen 07/2024 coming in for acute problem. Presenting with a right breast mass. The mass is described as firm, round, and approximately 3.5 cm from the nipple, movable. No tenderness, rash, or discharge is reported from the nipple. She denies fatigue or changes in energy. ON LICENSE OF [facility] Medical History History of pulmonary embolism Chronic kidney disease Ankylosing spondylitis of lumbar region Right lumbar radiculopathy Surgical History S/P kidney transplant Status post dialysis Hx of bilateral breast reduction surgery Family History Mother No problems noted. Father No problems noted. Brother Substance abuse Social History Household Members: None Housing: Apartment Are you a primary child day care teacher to a significant other at home: No Do you presently have visiting nurse or other home services: No Alcohol intake: never Patient Tobacco Use Status: Former Tobacco user Years Smoked: 15 e-Cigarette/Vaping Use: Never Used Second Hand Smoke Exposure: Yes Advance Directives Date on File: 02/26/20 service: No Current occupational status: disabled Gender identity: Female Cognitive needs: No Hearing needs: No Vision needs: Yes (Glasses) Female Reproductive History Menstrual Age of Menarche: 17 Questionnaire Thrive Questionnaire Date Thrive assessed: 08/01/24 VIRIDIANA-7 AMB Questionnaire VIRIDIANA-7 Date VIRIDIANA - 7 assessed: 08/01/24 Source: Developed by Drs. Han Marcelo, Halle Robles, Dexter Medrano and colleagues, with an educational tigre from [employer]. Review of Systems Const Denies body aches, Denies chills, Denies fever(s) and Denies poor appetite Eyes Reports no additional complaints Card Denies chest pain and Denies dyspnea Resp Denies dyspnea GI Denies nausea and Denies vomiting Reports no additional complaints Skin/Breast Reports as per HPI Psych Reports no additional complaints Physical exam (Primary Care) Vital Signs: Last Vital Signs Temp 97.1 F 09/01/24 09:45 Pulse 78 09/01/24 09:45 BP 120/72 09/01/24 09:45 Pulse Ox 99 09/01/24 09:45 Oxygen Delivery Method Room Air 09/01/24 09:45 BMI result Body Mass Index 32.9 Tobacco/Smoking Status: Tobacco use Status Tobacco use date assessed 09/01/24 09/01/24 09:50 Patient Tobacco Use Status Former Tobacco user 09/01/24 09:50 e-Cigarette/Vaping Use Never Used 09/01/24 09:50 Thrive Assessment: Date of Thrive Assessment Date Thrive assessed 08/01/24 09/01/24 09:50 Const General: cooperative, healthy appearing, comfortable and no acute distress Orientation/consciousness: patient oriented x3 HENMT Head: Yes normocephalic Ears: hearing grossly normal bilaterally General nose exam: Normal external nose present Eyes General: appearance normal, both eyes and all related structures Conjunctivae: conjunctivae normal Neck Neck: Yes full ROM and Yes no lymphadenopathy Chest Other: Normal palpation of left breast Chest/axillae images: 1. Small, soft, nontender freely mobile mass with round edges in the right breast located in the 9-10 o'clock position 2-3 cm from the nipple Resp Effort & Inspection: normal respiratory effort Auscultation: clear to auscultation bilaterally, no crackles, no rales, no rhonchi and no wheezes Cardio Rate: regular rate Rhythm: regular rhythm Skin General skin exam: no rashes or lesions noted Neuro General: patient oriented x3 Gait exam (Neuro): Normal gait present Extrem General: Yes normal to inspection, Yes full ROM and No edema Psych Affect: normal affect Attitude: cooperative Insight: Good insight present (Psych) Judgement: Good judgement present (Psych) Coding Level of Care Code Est Pt Level 3 (71728) Diagnoses Mass of upper outer quadrant of right breast N63.11 Breast mass location: upper outer quadrant Assessment & Plan Assessment & Plan (1) Breast mass, right: Code(s): N63.10 - Unspecified lump in the right breast, unspecified quadrant Category: Medical Qualifiers: Breast mass location: upper outer quadrant Qualified Code(s): N63.11 - Unspecified lump in the right breast, upper outer quadrant Plan: The primary management goals include ruling out malignancy for the right breast mass through imaging, specifically a breast ultrasound, and confirming the nature of the mass, as suspected. Imaging results will guide further management steps, and detailed follow-up will be advised based on those outcomes. Plan This note was constructed using voice recognition software. While every effort has been made to ensure accuracy and chemist biological, still areas may have been included sometimes these areas may affect the content or meeting of the given symptoms. Total time spent caring for the patient today was 20 minutes. This includes time spent before the visit reviewing the chart, time spent during the visit, and time spent after the visit and documentation. Patient was informed and verbally consented to the use of an ambient scribe for clinic note documentation during this visit. Orders: Orders US breast RT limited Today N63.11 - Unspecified lump in the right breast, upper outer quadrant MM diagnostic mammo BI Today N63.11 - Unspecified lump in the right breast, upper outer quadrant
[2024-09-01 09:45] VITALS: BP 120/72; PULSE 78; TEMP 36.2; O2SAT 99; BMI 32.9
--- OUTSIDE RECORDS SUMMARY | 2024-09-01 09:59 | XMS_ITS | Encounter Summary ---
Author Organization [facility], Address [address] [place] [address] Phone Care Team Providers Care Detail Maker And Fitter Name Role Phone Nissa Mckeon DO Primary Care Pro vider Encounter Details Date Type Department Care Team (Late st Contact Info) Description 07/25/2021 Telephone [facility] - [facility] [address] [place] [address] Danna Jain [address] [place] [address] Social History Tobacco Use Types [...] on filedocumented in this encounter Care Teams Detail Maker And Fitter Relationship Specialty Start Date End Date Nissa Mckeon DO PCP - General 04/29/20 documented as of this encounter
--- OUTSIDE RECORDS SUMMARY | 2024-09-01 09:59 | XMS_ITS | Encounter Summary ---
Author Organization [facility], Address [address] [place] [address] Phone Care Team Providers Care Base Ply Hand Name Role Phone Nissa Mckeon DO Primary Care Pro vider Encounter Details Date Type Department Care Team ([facility] Contact Info) Description 05/23/2021 Documentation Only [facility], [address] [place] [address] Rob Lagunas MD [address] [place] [address] Social History Tobacco Use Types [...] on filedocumented in this encounter Care Teams Base Ply Hand Relationship Specialty Start Date End Date Nissa Mckeon DO PCP - General 04/29/20 documented as of this encounter
--- OUTSIDE RECORDS SUMMARY | 2024-09-01 09:59 | XMS_ITS | Encounter Summary ---
Author Organization [facility], Address [address] [place] [address] Phone Care Team Providers Care Emergency Service Worker Name Role Phone Nissa Mckeon DO Primary Care Pro vider Encounter Details Date Type Department Care Team ([facility] Contact Info) Description 04/29/2021 Documentation Only [facility], [address] [place] [address] Rob Lagunas MD [address] [place] [address] Social History Tobacco Use Types [...] on filedocumented in this encounter Care Teams Emergency Service Worker Relationship Specialty Start Date End Date Nissa Mckeon DO PCP - General 04/29/20 documented as of this encounter
--- OUTSIDE RECORDS SUMMARY | 2024-09-01 09:59 | XMS_ITS ---
Author Organization [facility] Address [address] [place] [address] Care Team Providers Care Medical Reception Specialist Name Role Phone Alexx Baum Primary Care Provider Unavailab Nan Roper Unavailable [phone] REASON FOR VISIT Missbooked Encounters Encounter Location Date Provider Diagnosis [facility] [address] [place] [address] 07/05/2024 Nan Phillips Plan Of Treatment No Information Progress Notes * Dara ROBLES RDOB:1975 (48 yo F)Acc No.[id number]:07/05/2024 Progress Note Patient:?Dara ROBLES Provider:?Nan Phillips DPM :1975???Age:48 Y???Sex:Female D ate:07/05/2024 Address:[address] [place], [place] [id number] Pcp:Alexx Baum Subjective: * Chief Complaints: * [...] Phillips DPM Date:? Generated for Printi ng/Faxing/eTransmitting on:?09/01/2024 09:58 AM EDT
--- OUTSIDE RECORDS SUMMARY | 2024-09-01 09:59 | XMS_ITS | Clinical Summary ---
Author Organization [facility] Address [address] [address] [place] [address] Care Team Providers Care Hydraulic Press Operator Name Role Phone Unavailable Primary Care Provider [...] meals. 270 Cap 2 3 Active b kiiuzgx-U-stasf acid (NEPHROCAPS) 1 mg per capsuleIndicatio ns:ESRD (end stage renal disease) on dialysis ([facility]) Take 1 Cap by mouth once daily. 30 Cap 4 3 Active loratadine (CLARITIN) 10 mg tabletIndication s:Allergic rhinitis Take 1 Tab by mouth once daily as needed for allergies. Active diphenhydrAMINE (BENADRYL) 50 mg tabletIndication s:ESRD (end stage renal disease) on dialysis ([facility]) Take 1 Tab by mouth as needed. [...] (two) times daily. 15 g Active b qyayjjs-B-uztzv acid (RENAL CAPS) 1 mg per capsuleIndicatio ns:ESRD (end stage renal disease) on dialysis ([facility]) Take 1 Cap by mouth once daily. [...] ESRD (end stage renal disease) on dialysis ([facility]) Overview (01/03/2013): Goes [facility] 2x[facility]week, as No Clinical Trial Coordinator in area will take her as patient due past poor behavior and non-compliance. Eczema ASTHMA MODERATE PERSISTENT Overview (01/02/2013): Tobacco abuse Hyperlipidemia Hidradenitis suppurativa Overview (01/02/2013): Wound care follow up Dr. Mcbride Borderline personality disorder ([facility]) Overview (01/03/2013): Non-compliant with psych f/u. GERD [...] Not on file Insurance [place] - [place]
--- OUTSIDE RECORDS SUMMARY | 2024-09-01 09:59 | XMS_ITS ---
Author Organization [facility] ([facility]) Address [address] [place] [address] Care Team Providers Care Account Receivable Associate Name Role Phone Unavailable Unavailable Unavailable Allergies, Adverse Reactions, Alerts This patient has no known allergies or adverse reactions. Problems This patient has no known problems.
--- OUTSIDE RECORDS SUMMARY | 2024-09-01 10:00 | XMS_ITS | Patient Health Record ---
Author [facility] Address [address] [place] [address] Care Team Providers Care Cardiologist Name Role Phone Alexx Baum Primary Care Provider Unavailab Nan Roper Unavailable [phone] Allergies Allergen (clinical drug ingredient) Drug/Non Drug Allergy documented on EMR Reaction Allergy Type Onset Date Status ibuprofen Advil Unknown Drug Allergy Active Aleve Unknown Drug Allergy Active sulfamethoxazole / trimethoprim Bactrim Unknown Drug Allergy Active povidone-iodine Betadine Unknown Drug Allergy A ctive acetaminophen / hydrocodone HYDROcodone-Acetamino phen Unknown Drug Allergy Active lisinopril Lisinopril Unknown Drug Allergy Activ e Motrin Unknown Drug Allergy Active acetaminophen / [...] Problem Status W/U Status Risk Notes Problem [id number] Diabetes mellitu s without complication (E11.9) Active confirmed Vital Signs Blood pressure diastolic 65 mm Hg 07/05/2024 Height 5ft6in in 07/05/2024 Blood pressure systolic 113 mm Hg 07/05/2024 Weight 198 lbs 07/05/2024 BMI 31.95 kg/m2 07/05/2024 Encounters Encounter Location Date Provider Diagnosis [address] [address] 06/07/2024 Nan Perica Ingrown nail L60.0 ; Diabetes mellitus without complication E11.9 ; Pain in right toe(s) M79.674 and Pain in left toe(s) M79.[address] [address] 07/05/2024 Nan Perica Ingrown nail L60.0 and Diabetes mellitus without complication E11.[address] [address] 03/27/2024 Nan Perica Assessments Encounter Date Diagnosis [...] Medicare National [employer] [address] [place] [address] [id number] Dara Robles Self - patient is the insured 7 Medical (General) History Medical History History ICD Code Anxiety asthma Depression Kidney disease Reflux ( GERD) Diabetes mellitus Surgical History Surgery Date(Month/Year) kidney transplant 2020 shoulder replacement Left 2021
--- OUTSIDE RECORDS SUMMARY | 2024-09-01 10:00 | XMS_ITS | Encounter Summary ---
Author Organization [facility] Address [address] [place] [address] Care Team Providers Care Supervisor Personnel Clerks Name Role Phone Marce Alexandre APRN Unavailable Rob Lagunas MD Unavailable [phone] Alejandrina Eugene DO Unavailable [phone] Primary Care Provider [phone] Encounter Details Date Type Department Care Team (Late st Contact Info) Description 08/19/2018 Scanned Document [facility] [address] [address] Provider, MD Jason [address] [place] [address] Social History Tobacco Use Types Packs/Day Years Used Date Smoking Tobacco: Never Assessed Comments Unknown Sex and Gender Information Value Date Recorded Sex Assigned at Not on file Legal Sex Female 11:57 AM EDT Gender Identity Not on file Sexual Orientation Not on file documented as of this encounter Plan of Treatment Not on file documented as of this encounter Visit Diagnoses Not on filedocumented in this encounter Care Teams Supervisor Personnel Clerks Relationship Specialty Start Date End Date Unknown Unknow Provider Address PCP - General 08/20/21 Marce Alexandre APRN [address] [address] Nurse Practitioner Surgery, Transplant 09/26/18 Rob Lagunas MD [address] [place] [address] Referring Provider Nephrology 09/26/18 Eugene Tinoco DO [address] [place] [address] Primary Care Provider Family Medicine 09/26/18 documented as of this encounter
--- OUTSIDE RECORDS SUMMARY | 2024-09-01 10:00 | XMS_ITS | Encounter Summary ---
Author Organization [facility], Address [address] [place] [address] Phone Care Team Providers Care Residential Program Worker Name Role Phone Nissa Mckeon DO Primary Care Pro vider Reason for Visit * Reason Comments Med Refill Encounter Details Date Type Department Care Team (Late st Contact Info) Description 07/16/2020 Refill [facility] [address] [place] [address] Wicho Johnson PA Social History [...] on filedocumented in this encounter Care Teams Residential Program Worker Relationship Specialty Start Date End Date Nissa Mckeon DO PCP - General 04/29/20 documented as of this encounter
--- OUTSIDE RECORDS SUMMARY | 2024-09-01 10:00 | XMS_ITS | Encounter Summary ---
Author Organization [facility] Address [address] [place] [address] Care Team Providers Care Binding Printer Name Role Phone Marce Alexandre APRN Unavailable Rob Lagunas MD Unavailable Alejandrina Eugene DO Unavailable [phone] Primary Care Provider [phone] Encounter Details Date Type Department Care Team (Late st Contact Info) Description 09/21/2018 Scanned Document [facility] [address] [address] Provider, MD Jason [address] [place] [address] Social History Tobacco Use Types Packs/Day Years [...] on filedocumented in this encounter Care Teams Binding Printer Relationship Specialty Start Date End Date Unknown Unknow Provider Address PCP - General 08/20/21 Marce Alexandre APRN [address] [address] Nurse Practitioner Surgery, Transplant 09/26/18 Rob Lagunas MD [address] [place] [address] Referring Provider Nephrology 09/26/18 Eugene Tinoco DO [address] [place] [address] Primary Care Provider Family Medicine 09/26/18 documented as of this encounter
--- OUTSIDE RECORDS SUMMARY | 2024-09-01 10:00 | XMS_ITS | Encounter Summary ---
Author Organization [facility] Address [address] [place] [address] Care Team Providers Care Kindergarten Teacher Name Role Phone Marce Alexandre APRN Unavailable Rob Lagunas MD Unavailable [phone] Alejandrina Eugene DO Unavailable [phone] Unknown Primary Care Provider [phone] Encounter Details Date Type Department Care Team (Late st Contact Info) Description 09/21/2018 Scanned Document [facility] [address] [address] Provider, MD Jason [address] [place] [address] Social History Tobacco Use Types Packs/Day Years [...] on filedocumented in this encounter Care Teams Kindergarten Teacher Relationship Specialty Start Date End Date Unknown Unknow Provider Address PCP - General 08/20/21 Marce Alexandre APRN [address] [address] Nurse Practitioner Surgery, Transplant 09/26/18 Rob Lagunas MD [address] [place] [address] Referring Provider Nephrology 09/26/18 Eugene Tinoco DO [address] [place] [address] Primary Care Provider Family Medicine 09/26/18 documented as of this encounter
--- OUTSIDE RECORDS SUMMARY | 2024-09-01 10:00 | XMS_ITS | Clinical Summary ---
Author Organization [facility] Address [address] [place] [address] Care Team Providers Care Cloth Bin Packer Name Role Phone Unavailable Primary Care Provider Unavailabl e Social History Tobacco Use Types Packs/Day Years Used Date Smoking Tobacco: Never Assessed Sex and Gender Information Value Date Recorded Sex Assigned at Not on file Gender Identity Not on file Sexual Orientation Not on file Plan of Treatment Not on file
--- OUTSIDE RECORDS SUMMARY | 2024-09-01 10:00 | XMS_ITS | Encounter Summary ---
Author Organization [facility], Address [address] [place] [address] Phone Care Team Providers Care Beef Ribber Name Role Phone TejalveronicaNissa Fu DO Primary Care Pro vider Encounter Details Date Type Department Care Team ([facility] Contact Info) Description 05/27/2020 Telephone [facility] - [facility] [address] [place] [address] Danna Jain [address] [place] [address] Social History Tobacco Use Types [...] AM EST) Coronavirus COVID-19 PCR NEGATIVE (NEG) [facility] Comment: 2019-novel Coronavirus (2019-nCoV) not detected by real-time RT-PCR. Note: If clinical suspicion for COVID-19 is high, continue to maintain precautions and consider repeat testing. Result reported to the [facility]. To prevent errors in diagnosis, test results [...] performed by real time PCR utilizing [employer] SARS-CoV-2 test. SARS-CoV-2 Source [facility] Comment: Testing performed or reported by [facility], a Service of [facility], [address] [place] [address] Danyel Ponce MD, Town Manager 05/27/2020 11:5 6 AM EST 05/27/2020 2:49 PM EST Christiane Garay MD LAB HISTORICAL-CONVERSIONS- UNSOLICITED RESULTS Final Result [facility] documented in this encounter Visit Diagnoses Not on filedocumented in this encounter Care Teams Beef Ribber Relationship Specialty Start Date End Date Nissa Mckeon DO PCP - General 04/29/20 documented as of this encounter
--- OUTSIDE RECORDS SUMMARY | 2024-09-01 10:00 | XMS_ITS | Encounter Summary ---
Author Organization [facility], Address [address] [place] [address] Phone Care Team Providers Care Car Sweeper Name Role Phone Nissa Mckeon DO Primary Care Pro vider Reason for Visit * Reason Comments Med Refill Encounter Details Date Type Department Care Team (Late st Contact Info) Description 07/17/2019 Refill [facility] [address] [place] [address] Wicho Johnson PA Social History [...] on filedocumented in this encounter Care Teams Car Sweeper Relationship Specialty Start Date End Date Nissa Mckeon DO PCP - General 04/29/20 documented as of this encounter
--- OUTSIDE RECORDS SUMMARY | 2024-09-01 10:00 | XMS_ITS ---
Author Organization [facility] Address [address] [facility] [place] [address] Care Team Providers Care Safety And Security Officer Name Role Phone Alexx Baum Primary Care Provider Unavailab Nan Roper Unavailable [phone] Allergies Allergen (clinical drug ingredient) Drug/Non Drug [...] Problem Status W/U Status Risk Notes Problem 20730629 Diabetes mellitu s without complication (E11.9) Active confirmed Vital Signs Height 5ft6in in 06/07/2024 Weight 198 lbs 06/07/2024 BMI 31.95 kg/m2 06/07/2024 Blood pressure systolic 113 mm Hg 06/07/19 25 Blood pressure diastolic 65 mm Hg 025 Encounters Encounter Location Date Provider Diagnosis [facility] [place] [address] [place] [address] 06/07/2024 Nan Alan Ingrown nail L60.0 ; [...] Motrin was recommended for pain or discomfort (50049) Anesthesia 3cc of 1 percent Lid ocaine Plain local anesthesic utilizing aseptic technique Location Bilateral nail yaseminde r, TA Progress Notes * Dara ROBLES RDOB:1975 (48 yo F)Acc No.[id number]:06/07/2024 Progress Notes Patient:?Dara ROBLES Provider:?Nan Phillips DPM :1975???Age:48 Y???Sex:Female D ate:06/07/2024 Address:[address] [place] [address] Pcp:Alexx Baum Subjective: * Chief Complaints: * [...] patient * Allergies:?BactrimAdvilAleve MotrinBetadineUltramVicodinLisinoprilShellfish- derived ProductsTramadolIbuprofenoxyCODONE-AcetaminophenPovidone I zjowfBenykudrrfhrojqg-UykqqvbgqnarTUMKJftpygb-DvbwzvinsikgnMpxbieulztuwnkgn[Jose Miguel rgies Verified] Objective: * Vitals:?Ht: 5ft6in, [...] * Assessment: 1.?Ingrown nail - L60.0 (Jacquie coombs)???2.?Diabetes mellitus without complication - E11.9???3.?Pain in right [...] Motrin was recommended for pain or discomfort (24025).? * Procedure Codes:?04410 Avuls ion Plate, Modifiers: TA * Preventive [...] Phillips DPM Date:? Generated for Mona tran/Spencer/eTransmitting on:?09/01/2024 09:59 AM EDT History and Physical Notes * [...]
--- OUTSIDE RECORDS SUMMARY | 2024-09-01 10:00 | XMS_ITS | Clinical Summary ---
Author Organization [facility] Address [address] [place] [address] Care Team Providers Care Piano Technician Name Role Phone Unavailable Primary Care Provider Unavailabl e Surgical History Surgery Date Site/Laterality Comments OTHER SURGICAL HISTORY PROCEDURE: AV FISTULA OR GRAFT ARTERIAL PARATHYROIDECTOMY PROCEDURE: HISTORICAL PARATHYROIDECTOMY OTHER SURGICAL HISTORY PROCEDURE: CA PRTL THYROID LOBECTOMY UNI W/WO ISTHMUSECTOMY Medical History Medical History Date Comments HTN (hypertension) DX:HTN (hyper tension) ESRD (end stage renal diseas e) ([facility] V24, [facility] V28) DX:ESRD (end stage renal dis ease) ([facility]LY [facility]); COMMENT: hd at [facility] er/icu; babu Anxiety DX:Anxiety Depression DX:Depression Bipolar disorder ([facility] V2 4, [facility] V28) DX:Bipolar disorder ([facility]); C OMMENT: [facility] therapist Secondary hyperparathyroidis m ([facility] V24) DX:Secondary hyperparathyroi dism ([facility]) Asthma DX:Asthma Tobacco use DX:Tobacco use Hidradenitis suppurativa DX:Hidr adenitis suppurativa History of substance abuse ( [facility] V24, [facility] V28) DX:History of substance abus e ([facility]) GERD (gastroesophageal reflux disease) DX:GERD (gastroesophageal reflux [...]
--- OUTSIDE RECORDS SUMMARY | 2024-09-01 10:01 | XMS_ITS | Encounter Summary ---
Author Organization [facility] Address [address] [place] [address] Care Team Providers Care Development Mgr Name Role Phone Marce Alexandre APRN Unavailable Rob Lagunas MD Unavailable [phone] Eugene Tinoco DO Unavailable [phone] Unknown Primary Care Provider [phone] Encounter Details Date Type Department Care Team (Late st Contact Info) Description 09/29/2018 Scanned Document [facility] [address] [address] Keke Stockton [address] [address] Social History Tobacco Use Types Packs/Day Years [...] on filedocumented in this encounter Care Teams Development Mgr Relationship Specialty Start Date End Date Unknown Unknow Provider Address PCP - General 08/20/21 Marce Alexandre APRN [address] [address] Nurse Practitioner Surgery, Transplant 09/26/18 Rob Lagunas MD [address] [place] [address] Referring Provider Nephrology 09/26/18 Eugene Tinoco DO [address] [place] [address] Primary Care Provider Family Medicine 09/26/18 documented as of this encounter
--- OUTSIDE RECORDS SUMMARY | 2024-09-01 10:01 | XMS_ITS | Clinical Summary ---
Author Organization [facility] Address [address] [place] [address] Care Team Providers Care Student Affairs Dean Name Role Phone Marce Alexandre STAN Unavailable [phone] Rob Lagunas MD Unavailable [phone] Eugene Tinoco DO Unavailable [phone] Unknown Primary Care Provider [phone] Allergies Active Allergy Reactions Criticality Noted Date Comments Lisinopril Unknown/Patient and Family Unable to Define Medium 09/26/2018 Ibuprofen Other (See Comments) 09/26/2018 Because of kidneys Shellfish-Derived Products Anaphylaxis High 09/26/2018 Sulfa Antibiotics Hives Medium 09/26/2018 Tramadol Unknown/Patient and Family Unable to Define Medium 09/26/2018 Hydrocodone-Acetaminop hen Itching Low 09/26/2018 Medications calcium carbonate (TUMS) 500 MG chewable tablet Chew 1 tablet every 4 (four) hours as needed for indigestion or heartburn. Active fluticasone-lauren nterol (BREO ELLIPTA) 100-25 MCG/INH inhaler Inhale 1 puff daily. Active docusate sodium (COLACE) 100 MG capsule Take [...] Take 10 mg by mouth every morning. 2 Active calcitriol (ROCALTROL) 0.5 MCG capsule Take 0.5 mcg by mouth every morning. 2 Active famotidine (PEPCID) 20 MG tablet Take 20 mg by mouth 2 (two) times a day. 2 Active Miconazole 3 200 MG vaginal suppository Insert 1 suppository (200 mg total) into the vagina per week. 2 Active PANTOprazole (PROTONIX) 20 MG tablet Take 20 mg by mouth every morning. 2 Active sulfamethoxazole -trimethoprim (BACTRIM SS) 400-80 MG per tablet Take 1 tablet by mouth every morning. 2 Active predniSONE (DELTASONE) 5 MG tablet Take [...] 07/19/2020 06/21/2020, 05/23/2020 Colonoscopy 2021 Influenza Vaccine 11/17/2024 02/17/2021, , 01/18/2019, Additional history exists HIV Screening Completed 11/01/2020, 06/24/2018 [place] [id number] MEDICAID OUT OF [place] [facility] [place] [place] [address] [facility] [facility] [address] [place] [facility] [place] [id number] MEDICARE PART A & B MEDICAID OUT OF STATE [facility] [place] [address] Care Teams Student Affairs Dean Relationship Specialty Start Date End Date Unknown Unknow Provider Address PCP - General 08/20/21 Marce Alexandre APRN [address] [place] [address] Nurse Practitioner Surgery, Transplant 09/26/18 Rob Lagunsa MD [address] [place] [address] Referring Provider Nephrology 09/26/18 Eugene Tinoco DO [address] [place] [address] Primary Care Provider Family Medicine 09/26/18
--- OUTSIDE RECORDS SUMMARY | 2024-09-01 10:01 | XMS_ITS | Encounter Summary ---
Author Organization [facility] Address [address] [place] [address] Care Team Providers Care Botany Laboratory Assistant Name Role Phone Marce Alexandre APRN Unavailable Rob Lagunas MD Unavailable [phone] Alejandrina Eugene DO Unavailable [phone] Unknown Primary Care Provider [phone] Encounter Details Date Type Department Care Team (Late st Contact Info) Description 09/28/2018 Scanned Document [facility] [address] [address] Provider, MD Jason [address] [place] [address] Social History Tobacco Use Types Packs/Day Years [...] on filedocumented in this encounter Care Teams Botany Laboratory Assistant Relationship Specialty Start Date End Date Unknown Unknow Provider Address PCP - General 08/20/21 Marce Alexandre APRN [address] [address] Nurse Practitioner Surgery, Transplant 09/26/18 Rob Lagunas MD [address] [place] [address] Referring Provider Nephrology 09/26/18 Eugene Tinoco DO [address] [place] [address] Primary Care Provider Family Medicine 09/26/18 documented as of this encounter
--- OUTSIDE RECORDS SUMMARY | 2024-09-01 10:01 | XMS_ITS | Encounter Summary ---
Author Organization [facility] Address [address] [place] [address] Care Team Providers Care Chief Privacy Officer Name Role Phone Marce Alexandre APRN Unavailable Rob Lagunas MD Unavailable [phone] Eugene Tinoco DO Unavailable [phone] Unknown Primary Care Provider [phone] Encounter Details Date Type Department Care Team (Late st Contact Info) Description 09/27/2018 Scanned Document [facility] [address] [address] Rohini Hairston [place] [address] [address] Social History Tobacco Use Types Packs/Day Years [...] on filedocumented in this encounter Care Teams Chief Privacy Officer Relationship Specialty Start Date End Date Unknown Unknow Provider Address PCP - General 08/20/21 Marce Alexandre APRN [address] [address] Nurse Practitioner Surgery, Transplant 09/26/18 Rob Lagunas MD [facility] [place] [address] Referring Provider Nephrology 09/26/18 Eugene Tinoco DO [address] [place] [address] Primary Care Provider Family Medicine 09/26/18 documented as of this encounter
--- OUTSIDE RECORDS SUMMARY | 2024-09-01 10:01 | XMS_ITS | Encounter Summary ---
Author Organization [facility] Address [address] [place] [address] Care Team Providers Care Pharm Spec Name Role Phone Marce Alexandre STAN Unavailable [phone] Rob Lagunas MD Unavailable [phone] Eugene Tinoco DO Unavailable [phone] Unknown Primary Care Provider [phone] Encounter Details Date Type Department Care Team (Late st Contact Info) Description 09/27/[address] [facility] Transplant Program & [facility] [address] [facility] [address] [place] [address] Ilene Gale [place] Social History Tobacco Use Types Packs/Day Years [...] because the patient requested to see a display department manager. I introduced myself to both the [...] on filedocumented in this encounter Care Teams Pharm Spec Relationship Specialty Start Date End Date Unknown Unknow Provider Address PCP - General 08/20/21 Marce Alexandre APRN [address] [place] [address] Nurse Practitioner Surgery, Transplant 09/26/18 Rob Lagunas MD [address] [place] [address] Referring Provider Nephrology 09/26/18 Eugene Tinoco DO [address] [place] [address] Primary Care Provider Family Medicine 09/26/18 documented as of this encounter
--- OUTSIDE RECORDS SUMMARY | 2024-09-01 10:01 | XMS_ITS | Clinical Summary ---
Author Organization [facility], Address [address] [place] [address] Phone Care Team Providers Care Ios Programmer Name Role Phone Nissa Mckeon DO Primary [...] (04/18/2020): Goes [facility] 2x[facility]week, as No Registered Nurse Nursery in area will take her as patient [...] Telephone [facility] [address] [place] [address] Nereida Almanzar from Last 3 Months Social [...] 05/31/2017 Insurance Medicare Medicaid [place] Care Teams Ios Programmer Relationship Specialty Start Date End Date Nissa Mckeon DO PCP - General 04/29/20
--- OUTSIDE RECORDS SUMMARY | 2024-09-01 10:01 | XMS_ITS ---
Author Organization [facility] Address [address] [place] [address] Care Team Providers Care Social Media Content Specialist Name Role Phone Alexx Baum Primary Care Provider Unavailab Nan Roper Unavailable [phone] Allergies Allergen (clinical drug ingredient) Drug/Non Drug [...] Active Pantoprazole Sodium 40 MG 1 tablet 1/ t o 1 hour before morning meal [...] 025 Encounters Encounter Location Date Provider Diagnosis [facility] [place] [address] [place] [address] 07/05/2024 Nan Alan Ingrown nail L60.0 and Diabetes mellitus without [...] was recommended for pain or discomfort - 18[address] Anesthesia 3cc of 1 percent Lid ocaine Plain local anesthesic utilizing aseptic technique Location Bilateral nail borde r, T5 Progress Notes * Dara ROBLES RDOB:1975 (48 yo F)Acc No.[id number]:07/05/2024 Progress Note Patient:?Dara ROBLES Provider:?Nan Phillips DPM :1975???Age:48 Y???Sex:Female D ate:07/05/2024 Address:[address] [place] [address] Pcp:Alexx Baum Subjective: * Chief Complaints: * [...] patient * Allergies:?BactrimAdvilAleve MotrinBetadineUltramVicodinLisinoprilShellfish- derived ProductsTramadolIbuprofenoxyCODONE-AcetaminophenPovidone I tjfqqWqzxxjaklshooiax-AzveejvcnsmgSRTJPltkted-NndpxirschuxdFyvsrawnbeqslbew[Jose Miguel rgies Verified] Objective: * Vitals:?Ht:5ft6in, Wt:198, B DC:31.95, Shoe size:10, BP:113/65mm Hg, BS:89, Ht- cm: [...] was recommended for pain or discomfort - [address].? * Procedure Codes:?18498 Avuls ion Plate, Modifiers: T5 * Follow Up:?prn * Images: * Sign off status: Completed true * Provider:?Nan Phillips DPM Date:? Generated for Mona tran/Spencer/Bhumikaitting on:?09/01/2024 10:00 AM EDT History and Physical Notes * [...]
== END 2024-09-01 10:17 | disposition home or self-care (01) ==
LOC: HO.HMCH 09:43
PROVIDERS: PCP Physician Assistant
DX: N63.11 Unspecified lump in the right breast, upper outer quadrant (principal)

== ENCOUNTER → 2024-09-01 09:43 | Outpatient (BNVA) | payer MEDICARE, MEDICAID, SELFPAY | PROVIDERS: PCP Physician Assistant | DX: N63.11 Unspecified lump in the right breast, upper outer quadrant (principal) | CPT/HCPCS: 99212 ==

== ENCOUNTER 2024-09-20 20:40 | Emergency (ER) | payer MEDICARE, MEDICAID, SELFPAY ==
--- NOTE | 2024-09-20 | ECG_ITS ---
Test Reason : CP Blood Pressure : */* mmHG Vent. Rate : 83 BPM Atrial Rate : 83 BPM P-R Int : 152 ms QRS Dur : 78 ms QT Int : 404 ms P-R-T Axes : 57 8 51 degrees QTcB Int : 474 ms Normal sinus rhythm Normal ECG When compared with ECG of 04-Jun-2023 20:47, No significant change was found Referred By: Generic ED Physician Electronically Signed By: JAYASHREE SOTO
--- NOTE | ~2024-09-20 | XR_ITS ---
CLINICAL HISTORY: pain 2 view left knee Comparison: None Findings: No fractures or dislocations. There are tricompartmental osteoarthritic changes with medial and patellofemoral joint space narrowing. No joint effusion. No radiopaque foreign body. There is a Debbi-Stieda lesion indicating a remote medial collateral ligament injury. IMPRESSION: 1. There are tricompartmental osteoarthritic changes with medial and patellofemoral joint space narrowing. 2. There is a Debbi-Stieda lesion indicating a remote medial collateral ligament injury. This document has been electronically signed by: Ghanshyam Dacosta MD on 09/21/2024 05:47:11
[2024-09-20 20:53] VITALS: BP 135/80; PULSE 95; RESP 20; TEMP 36.6; O2SAT 98; BMI 31.8
[2024-09-20 21:11] LABS: MANUAL DIFF FLAG NO
[2024-09-20 21:12] LABS: Basophils Percent Auto 0.6 % (0-2); Eosinophils Absolute Auto 0.1 X10*3/uL (0.0-0.4); Eosinophils Percent Auto 2.7 % (0-4); Hematocrit 40.6 % (37.0-47.0); Hemoglobin 13.4 g/dl (12.0-16.0); Imm Gran Abs Auto 0.02 X10*3/uL (0.00-0.03); Imm Gran Pct Auto 0.4 % (0.0-0.4); Lymphocytes Absolute Auto 1.2 X10*3/uL (1.2-4.9); Lymphocytes Percent Auto 21.8 % (20-40); Mean Corpuscular Hemoglobin 27.9 pg (27.0-33.0); Mean Corpuscular Volume 84.6 fL (80.0-98.0); Mean Platelet Volume 10.3 fL (9.4-12.3); Monocytes Absolute Auto 0.5 X10*3/uL (0.1-1.2); Monocytes Percent Auto 8.5 % (2-11); Neutrophils Absolute Auto 3.5 x10*3/uL (2.0-8.3); Platelet Count 280 X10*3/uL (160-400); Red Cell Distribution Width 14.2 % (11.0-16.0); White Blood Count 5.3 X10*3/uL (4.8-10.8)
[2024-09-20 21:27] LABS: Alanine Aminotransferase 17 U/L (0-31); Albumin Level 4.2 g/dL (3.5-5.0); Alkaline Phosphatase 93 U/L (39-117); Anion Gap 15 (12-20); Aspartate Amino Transferase 25 U/L (5-31); Bilirubin Total 0.4 mg/dL (0.0-1.0); Blood Urea Nitrogen 22 mg/dL (9-16); Calcium 9.4 mg/dL (8.4-10.2); Carbon Dioxide 17 mmol/L (22-29); Chloride 112 mmol/L (96-108); Creatinine Clr Calc Pharmacy 51.9; Estimated Glomerular Filt Rate 37; Glucose Random 97 mg/dL (60-115); Potassium 3.5 mmol/L (3.3-5.1); Sodium 140 mmol/L (135-145); Total Protein 8.6 g/dL (6.5-8.0)
[2024-09-20 21:35] LABS: Troponin-I High Sensitivity 5.3 ng/L (<3.5-17.0)
[2024-09-20 23:09] VITALS: BP 122/79; PULSE 80; RESP 19; TEMP 36.8; O2SAT 99
[2024-09-20 23:58] VITALS: BP 119/68; PULSE 79; RESP 25; TEMP 36.9; O2SAT 96
[2024-09-21] VITALS: BP 119/68; PULSE 79; RESP 25; TEMP 36.9; O2SAT 96
[2024-09-21 00:03] VITALS: BP 119/68; PULSE 79; RESP 25; TEMP 36.9; O2SAT 96
--- NOTE | 2024-09-21 02:43 | ED.CHESTPAIN ---
HPI - Chest Pain General Chief Complaint: Chest Pain Stated Complaint: chest pain, vomiting Time Seen by Provider: 09/21/24 03:52 Related Data Home Medications ?Medication ?Instructions ?Recorded ?Confirmed etonogestrel 68 mg subdermal 68 mg subdermal DAILY 06/18/21 09/01/24 implant (Nexplanon) lancets 33 [facility] ([facility] 05/26/23 09/01/24 Plus Lancet) valganciclovir 450 mg tablet mg PO 05/26/23 09/01/24 chlorhexidine gluconate 4 % topical 08/01/24 09/01/24 topical liquid (Hibiclens) estradiol 0.01% (0.1 mg/gram) vaginal 08/01/24 09/01/24 vaginal cream Previous Rx's ?Medication ?Instructions ?Recorded albuterol sulfate 2.5 mg/3 mL 2.5 mg (3 mL) inhalation Q6H PRN 03/05/22 (0.083 %) solution for nebulization shortness of breath or wheezing 15 days #180 mL nebulizers (AeroEclipse II #1 ea 03/05/22 Nebulizer) albuterol sulfate 90 mcg/actuation 1 inh inhalation QID PRN shortness 05/26/23 aerosol inhaler of breath or wheezing 6 months #6.7 grams acetaminophen 650 mg 650 mg PO Q12H 30 days #60 tabs 12/07/23 tablet,extended release gentamicin 0.3 % eye drops 1 drp ophthalmic (eye) Q8H 5 days 02/09/24 #5 mL benzocaine 15 mg-menthol 2.6 mg 1 sammie mucous membrane Q2-4H PRN 05/06/24 lozenges (Cepacol Sore Throat sore throat #16 ea (benzocaine-menthol)) guaifenesin 200 mg/5 mL oral liquid 200 mg (5 mL) PO Q4H PRN cough 05/06/24 #118 mL amlodipine 10 mg tablet 10 mg PO DAILY 90 days #90 tabs 09/18/24 blood sugar diagnostic ([facility] 09/18/24 Verio test strips) ergocalciferol (vitamin D2) 1,250 1,250 mcg PO QWEEK 12 weeks #12 09/18/24 mcg (50,000 unit) capsule caps pantoprazole 40 mg tablet,delayed 40 mg PO DAILY 90 days #90 tabs 09/18/24 release sennosides 8.6 mg tablet (senna) 8.6 mg PO BID 90 days #180 tabs 09/18/24 tirzepatide 15 mg/0.5 mL 15 mg (0.5 mL) subcut QWEEK 4 09/18/24 subcutaneous pen injector weeks #2 mL (Mounjaro) docusate sodium 100 mg capsule 100 mg PO BID 90 days #180 caps 09/19/24 (Dulcolax Stool Softener (docusate)) famotidine 20 mg tablet (Pepcid) 20 mg PO DAILY 90 days #90 tabs 09/19/24 sodium citrate-citric acid 500 10 ml PO BID 30 days #600 mL 09/19/24 mg-334 mg/5 mL oral solution mycophenolate mofetil 250 mg 500 mg (2 x 250 mg) PO BID 90 days 09/21/24 capsule (CellCept) #360 caps tacrolimus 1 mg capsule, 1 mg PO .COMPLEX 90 days #450 caps 09/21/24 immediate-release tacrolimus 5 mg capsule, 10 mg (2 x 5 mg) PO Q12H 90 days 09/21/24 immediate-release #360 caps Allergies Allergy/AdvReac Type Severity Reaction Status Date / Time lisinopril [LISINOPRIL] Allergy Intermediate EYES SWELL Verified 09/20/24 20:55 SHUT, angioedema, angioedema tramadol [TRAMADOL] Allergy Intermediate HIVES Verified 09/20/24 20:55 piperacillin [Zosyn] Allergy Mild rash Verified 09/20/24 20:55 cefazolin Allergy Unknown Unknown Verified 09/20/24 20:55 hydrocodone [From VICODIN] Allergy Unknown UNKNOWN Verified 09/20/24 20:55 ibuprofen [From Motrin] Allergy Unknown Unknown Verified 09/20/24 20:55 shellfish derived Allergy Unknown Unknown Verified 09/20/24 20:55 Sulfa (Sulfonamide Allergy Unknown UNKNOWN Verified 09/20/24 20:55 Antibiotics) [SULFA (SULFONAMIDE ANTIBIOTICS)] vancomycin Allergy Unknown rash Verified 09/20/24 20:55 azithromycin AdvReac Intermediate dizziness/A Verified 09/20/24 20:55 [facility] Past Medical History Medical History History of pulmonary embolism Chronic kidney disease Ankylosing spondylitis of lumbar region Right lumbar radiculopathy Surgical History S/P kidney transplant Status post dialysis Hx of bilateral breast reduction surgery Family History Family History Mother No problems noted. Father No problems noted. Brother Substance abuse Social History Social History Household Members: None Housing: Apartment Are you a primary childcare worker to a significant other at home: No Do you presently have visiting nurse or other home services: No Alcohol intake: never Patient Tobacco Use Status: Former Tobacco user Years Smoked: 15 e-Cigarette/Vaping Use: Never Used Second Hand Smoke Exposure: Yes Advance Directives Date on File: 02/26/20 service: No Current occupational status: disabled Gender identity: Female Cognitive needs: No Hearing needs: No Vision needs: Yes (Glasses) Physical Exam Vital Signs: Vital Signs: Last Vital Signs Temp 98.1 F 09/21/24 08:26 Pulse 79 09/21/24 08:26 Resp 24 H 09/21/24 08:26 BP 103/65 09/21/24 08:26 Pulse Ox 98 09/21/24 08:26 O2 Del Method Room Air 09/21/24 08:26 BMI result Body Mass Index 31.8 Medications Administered Discontinued Medications Generic Name Dose Route Start Last Admin Trade Name Freq PRN Reason Stop Dose Admin Sodium Chloride 1,000 mls @ 999 mls/hr 09/21/24 04:46 09/21/24 06:49 Ns IVCONT 09/21/24 05:46 Infused .Q1H1M ONE Infusion Ondansetron HCl 4 mg 09/21/24 02:58 09/21/24 03:01 Ondansetron Odt 4 Mg Tab.Rapdis TRANSLINGU 09/21/24 02:59 4 mg ONCE ONE Administration Medical Decision Making Lab Data 09/20/24 21:03 09/21/24 07:25 Labs: Lab Results 09/20/24 09/21/24 09/21/24 Range/Units 21:03 03:12 07:25 WBC 5.3 (4.8-10.8) X10*3/uL RBC 4.80 (4.20-5.50) X10*6/uL Hgb 13.4 (12.0-16.0) g/dl Hct 40.6 (37.0-47.0) % MCV 84.6 (80.0-98.0) fL MCH 27.9 (27.0-33.0) pg MCHC 33.0 (31.0-35.0) g/dl RDW 14.2 (11.0-16.0) % Plt Count 280 (160-400) X10*3/uL MPV 10.3 (9.4-12.3) fL Immature Gran % (Auto) 0.4 (0.0-0.4) % Neut % (Auto) 66.0 (45-73) % Lymph % (Auto) 21.8 (20-40) % [place] % (Auto) 8.5 (2-11) % Eos % (Auto) 2.7 (0-4) % Baso % (Auto) 0.6 (0-2) % Lymph # (Auto) 1.2 (1.2-4.9) X10*3/uL [place] # (Auto) 0.5 (0.1-1.2) X10*3/uL Eos # (Auto) 0.1 (0.0-0.4) X10*3/uL Baso # (Auto) 0.0 (0.0-0.2) X10*3/uL Abs Immat Gran (auto) 0.02 (0.00-0.03) X10*3/uL Absolute Neuts (auto) 3.5 (2.0-8.3) x10*3/uL Absolute Nucleated RBC 0.000 (0.0-0.012) X10*3/uL Nucleated RBC % (auto) 0.0 (0.0-0.2) /100WBC Sodium 140 140 (135-145) mmol/L Potassium 3.5 3.5 (3.3-5.1) mmol/L Chloride 112 H 116 H (96-108) mmol/L Carbon Dioxide 17 L 15 L (22-29) mmol/L Anion Gap 15 13 (12-20) BUN 22 H 22 H (9-16) mg/dL Creatinine 1.51 H 1.28 (0.5-1.4) mg/dL Estim Creat Clear Calc 51.9 61.1 Estimated GFR 37 45 Random Glucose 97 107 (60-115) mg/dL Calcium 9.4 8.6 D (8.4-10.2) mg/dL Total Bilirubin 0.4 (0.0-1.0) mg/dL AST 25 (5-31) U/L ALT 17 (0-31) U/L Alkaline Phosphatase 93 (39-117) U/L Troponin I High Sens 5.3 (<3.5-17.0) ng/L Total Protein 8.6 H (6.5-8.0) g/dL Albumin 4.2 (3.5-5.0) g/dL Urine Color Yellow Urine Appearance Clear Urine pH 5.5 (5.0-9.0) Ur Specific [place] 1.020 (1.005-1.025) Urine Protein 30 (1+) H (Neg-Trace) mg/dL Urine Glucose (UA) Negative (Negative) mg/dL Urine Ketones Trace (Negative) mg/dL Urine Blood Negative (Negative) Urine Nitrite Negative (Negative) Ur Leukocyte Esterase Trace H (Negative) Urine RBC 0-2 (0-2) /HPF Urine WBC 0-5 (0-5) /HPF Ur Squamous Epith Cells 6-10 (0-2) /HPF Urine Bacteria None Seen (None Seen) Hyaline Casts 3-5 (0-2) /LPF Discharge Plan Discharge Clinical Impression: Acute kidney injury, Knee osteoarthritis Patient Disposition: Home, Self-Care Instructions: Acute Kidney Injury (DC), Osteoarthritis (ED) Additional Instructions: Please follow-up with your primary care physician tomorrow. Please make sure that you contact your provider that prescribes tacrolimus, you need to know exactly which medications/pills you need to take, this medication is extremely important for you kidney. If you have any worsening or new symptoms, please return to the emergency room or call 911 Prescriptions: No Action (DME) nebulizers [AeroEclipse II Nebulizer] Misc See Rx Instructions .Route Qty: 1 0RF Rx Instructions: As directed albuterol sulfate 2.5 mg /3 mL (0.083 %) solution for nebulization 2.5 mg inhalation Q6H PRN (Reason: shortness of breath or wheezing) 15 Days Qty: 180 0RF amlodipine 10 mg tablet 10 mg PO DAILY 90 Days Qty: 90 1RF Mounjaro 15 mg/0.5 mL pen injector 15 mg subcut QWEEK 28 Days Qty: 2 3RF sennosides [senna] 8.6 mg tablet 8.6 mg PO BID 90 Days Qty: 180 1RF pantoprazole 40 mg tablet,delayed release (DR/EC) 40 mg PO DAILY 90 Days Qty: 90 1RF (DME) [employer] Verio test strips Strip See Rx Instructions .ROUTE TID Qty: 100 3RF Rx Instructions: Testing daily as needed ergocalciferol (vitamin D2) 1,250 mcg (50,000 unit) capsule 1,250 mcg PO QWEEK 84 Days Qty: 12 1RF sodium citrate-citric acid 500-334 mg/5 mL solution 10 ml PO BID 30 Days Qty: 600 3RF docusate sodium [Dulcolax Stool Softener (dss)] 100 mg capsule 100 mg PO BID 90 Days Qty: 180 1RF famotidine [Pepcid] 20 mg tablet 20 mg PO DAILY 90 Days Qty: 90 1RF mycophenolate mofetil [CellCept] 250 mg capsule 500 mg PO BID 90 Days Qty: 360 1RF Rx Instructions: Transplant date 10/04/2020- coverage for transplant [employer] tacrolimus 5 mg capsule 10 mg PO Q12H 90 Days Qty: 360 1RF Rx Instructions: Transplant date 10/04/2020- coverage for transplant [employer] tacrolimus 1 mg capsule 1 mg PO .COMPLEX 90 Days Qty: 450 1RF Rx Instructions: 1 mg orally; Take 2 capsules in the morning, take 3 capsules in the evening. Transplant date 10/04/2020- coverage for transplant [employer] guaifenesin 200 mg/5 mL liquid 200 mg PO Q4H PRN (Reason: cough) Qty: 118 0RF Cepacol Sore Throat (andres-men) 15-2.6 mg lozenge 1 sammie mucous membrane Q2-4H PRN (Reason: sore throat) Qty: 16 0RF acetaminophen 650 mg tablet extended release 650 mg PO Q12H 30 Days Qty: 60 0RF (DME) lancets [OneTouch Delica Plus Lancet] 33 gauge misc See Rx Instructions .ROUTE TID Qty: 100 Rx Instructions: As directed valganciclovir 450 mg tablet PO albuterol sulfate 90 mcg/actuation HFA aerosol inhaler 1 inh inhalation QID PRN (Reason: shortness of breath or wheezing) 180 Days Qty: 6.7 0RF Nexplanon 68 mg implant 68 mg subdermal DAILY chlorhexidine gluconate [Hibiclens] 4 % liquid topical estradiol 0.01 % (0.1 mg/gram) cream vaginal gentamicin 0.3 % drops 1 drp ophthalmic (eye) Q8H 5 Days Qty: 5 0RF Interventions: ED Discharge Assessment Last Done: 09/21/24 08:26 Discharge Date/Time: 09/21/24 08:52 Print Language: French
--- NOTE | 2024-09-21 02:46 | PC.NURSE ---
late entry: Assumed care of pt at 2300. PT a/ox4, intermittently dry heaving, however in no acute distress. PT states she presented to the ED for eval of CP and concern for mixing up her medications. Pain level 10/26, VSS. Notified SCOTTY Cheng or pts pain level and nausea. awaiting new orders
--- NOTE | 2024-09-21 02:57 | PC.NURSE ---
report given to CATHERINE Souza
[2024-09-21] MEDS: Ondansetron ODT 4 MG TAB.RAPDIS TRANSLINGU (03:01)
--- NOTE | 2024-09-21 03:03 | PC.NURSE ---
pt medicated as per JUN>
--- NOTE | 2024-09-21 03:06 | PC.NURSE ---
Took over care From CATHERINE Muse at this time. pt awaiting to be seen.
[2024-09-21 03:10] VITALS: BP 129/75; PULSE 78; RESP 15; O2SAT 98
[2024-09-21 03:17] LABS: Appearance Urine Clear; Color Urine Yellow; Glucose Urine UA Negative (Negative); Leukocyte Esterase Urine Trace (Negative); Nitrite Urine Negative (Negative); PH 5.5 (5.0-9.0); UMIC TRIGGER UACC YES; Urine Blood Negative (Negative); Urine Ketones Trace mg/dL (Negative); Urine Protein 30 (1+) mg/dL (Neg-Trace)
[2024-09-21 03:22] LABS: Bacteria Urine None Seen (None Seen); RBC Urine 0-2 /HPF (0-2); WBC Urine 0-5 /HPF (0-5)
--- NOTE | 2024-09-21 04:48 | ED_ITS ---
HPI - General Adult General Chief complaint: Chest Pain Stated complaint: chest pain, vomiting Time Seen by Provider: 09/21/24 03:52 Source: patient Mode of arrival: ambulatory Limitations: no limitations History of Present Illness ED Provider: Dr. Abbi Serrano HPI narrative: Patient comes to the emergency room stating that overall she has not been feeling quite well. Nothing specific. A little bit of left-sided knee pain. Patient states that she is concerned that she has not been taking her tacrolimus for her kidney as indicated. Patient states that she believes she missed up her doses of tacrolimus 1 mg and 5 mg tablets. She is supposed to take 7 mg in the morning and needed at night. However, she mixed all of the capsules together and she does not know what she has been taking for a few days. Patient denies any chest pain or shortness of breath, no nausea vomiting. Patient admits that she is not drinking as much fluid as it has been previously recommended. Patient denies any URI or UTI symptoms. Patient states that she was recently treated for bacterial vaginosis with antibiotics. For her knee, patient complaining of a bit of knee swelling, no trauma. Patient states that in the past she has been getting injections in the joint. Patient denies fever or chills. Patient states that she is still able to walk then hurts doing so. Denies any trauma Related Data Home Medications ?Medication ?Instructions ?Recorded ?Confirmed etonogestrel 68 mg subdermal 68 mg subdermal DAILY 06/18/21 09/01/24 implant (Nexplanon) lancets 33 gauge [facility] ea 05/26/23 09/01/24 Plus Lancet) valganciclovir 450 mg tablet mg PO 05/26/23 09/01/24 chlorhexidine gluconate 4 % topical 08/01/24 09/01/24 topical liquid (Hibiclens) estradiol 0.01% (0.1 mg/gram) vaginal 08/01/24 09/01/24 vaginal cream Previous Rx's ?Medication ?Instructions ?Recorded albuterol sulfate 2.5 mg/3 mL 2.5 mg (3 mL) inhalation Q6H PRN 03/05/22 (0.083 %) solution for nebulization shortness of breath or wheezing 15 days #180 mL nebulizers (AeroEclipse II #1 ea 03/05/22 Nebulizer) albuterol sulfate 90 mcg/actuation 1 inh inhalation QID PRN shortness 05/26/23 aerosol inhaler of breath or wheezing 6 months #6.7 grams acetaminophen 650 mg 650 mg PO Q12H 30 days #60 tabs 12/07/23 tablet,extended release gentamicin 0.3 % eye drops 1 drp ophthalmic (eye) Q8H 5 days 02/09/24 #5 mL benzocaine 15 mg-menthol 2.6 mg 1 sammie mucous membrane Q2-4H PRN 05/06/24 lozenges (Cepacol Sore Throat sore throat #16 ea (benzocaine-menthol)) guaifenesin 200 mg/5 mL oral liquid 200 mg (5 mL) PO Q4H PRN cough 05/06/24 #118 mL amlodipine 10 mg tablet 10 mg PO DAILY 90 days #90 tabs 09/18/24 blood sugar diagnostic (OneTouch #100 ea 09/18/24 Verio test strips) ergocalciferol (vitamin D2) 1,250 1,250 mcg PO QWEEK 12 weeks #12 09/18/24 mcg (50,000 unit) capsule caps pantoprazole 40 mg tablet,delayed 40 mg PO DAILY 90 days #90 tabs 09/18/24 release sennosides 8.6 mg tablet (senna) 8.6 mg PO BID 90 days #180 tabs 09/18/24 tirzepatide 15 mg/0.5 mL 15 mg (0.5 mL) subcut QWEEK 4 09/18/24 subcutaneous pen injector weeks #2 mL (Mounjaro) docusate sodium 100 mg capsule 100 mg PO BID 90 days #180 caps 09/19/24 (Dulcolax Stool Softener (docusate)) famotidine 20 mg tablet (Pepcid) 20 mg PO DAILY 90 days #90 tabs 09/19/24 sodium citrate-citric acid 500 10 ml PO BID 30 days #600 mL 09/19/24 mg-334 mg/5 mL oral solution mycophenolate mofetil 250 mg 500 mg (2 x 250 mg) PO BID 90 days 09/21/24 capsule (CellCept) #360 caps tacrolimus 1 mg capsule, 3 mg (3 x 1 mg) PO Q12H 90 days 09/21/24 immediate-release #540 caps tacrolimus 5 mg capsule, 10 mg (2 x 5 mg) PO Q12H 90 days 09/21/24 immediate-release #360 caps Allergies Allergy/AdvReac Type Severity Reaction Status Date / Time lisinopril [LISINOPRIL] Allergy Intermediate EYES SWELL Verified 09/20/24 20:55 SHUT, angioedema, angioedema tramadol [TRAMADOL] Allergy Intermediate HIVES Verified 09/20/24 20:55 piperacillin [Zosyn] Allergy Mild rash Verified 09/20/24 20:55 cefazolin Allergy Unknown Unknown Verified 09/20/24 20:55 hydrocodone [From VICODIN] Allergy Unknown UNKNOWN Verified 09/20/24 20:55 ibuprofen [From Motrin] Allergy Unknown Unknown Verified 09/20/24 20:55 shellfish derived Allergy Unknown Unknown Verified 09/20/24 20:55 Sulfa (Sulfonamide Allergy Unknown UNKNOWN Verified 09/20/24 20:55 Antibiotics) [SULFA (SULFONAMIDE ANTIBIOTICS)] vancomycin Allergy Unknown rash Verified 09/20/24 20:55 azithromycin AdvReac Intermediate dizziness/A Verified 09/20/24 20:55 KI Review of Systems 2 Review of Systems: Constitutional : No Weight loss, No Fever, No Chills, No Night Sweats, complaining of generalized malaise ENT/Mouth : No Hearing loss, No Ear Pain, No Nasal Congestion, No Sinus Pain, No Hoarseness, No sore throat, No Rhinorrhea, No Swallowing Difficulty Eyes: No Eye Pain, No Swelling, No Redness, No Foreign Body, No Discharge, No Vision Changes Cardiovascular : No Chest Pain, No SOB, No Dyspnea on Exertion, No Orthopnea, No Edema, No Palpitations Respiratory : No Cough, No Sputum, No Wheezing, No Smoke Exposure, No Dyspnea Gastrointestinal : No Nausea, No Vomiting, No Diarrhea, No Constipation, No abdominal Pain, No Hematochezia, No Melena Genitourinary : no irregular bleeding, No Dysuria, No Urinary Frequency, No Hematuria, No Urinary Incontinence, No Urgency, No Flank Pain, No Urinary Flow Changes, No Hesitancy Musculoskeletal : Complaining of left-sided knee pain, No Myalgias, No Joint Swelling Skin : No Skin Lesions, No rash Neuro : No Weakness, No Numbness, No Paresthesias, No Loss of Consciousness, No Dizziness, No Headache Psych : No Anxiety/Panic, No Depression, No SI/HI/AH/VH, No Social Issues, Heme/Lymph: No Bruising, No Bleeding,No Lymphadenopathy Endocrine : No Polyuria, No Polydipsia, No Temperature Intolerance [facility] Past Medical History Medical History History of pulmonary embolism Chronic kidney disease Ankylosing spondylitis of lumbar region Right lumbar radiculopathy Surgical History S/P kidney transplant Status post dialysis Hx of bilateral breast reduction surgery Family History Family History Mother No problems noted. Father No problems noted. Brother Substance abuse Social History Social History Household Members: None Housing: Apartment Are you a primary customer care consultant to a significant other at home: No Do you presently have visiting nurse or other home services: No Alcohol intake: never Patient Tobacco Use Status: Former Tobacco user Years Smoked: 15 Smoked in Last 30 Days: No e-Cigarette/Vaping Use: Never Used Second Hand Smoke Exposure: Yes Use of substances other than those prescribed or required for medical reasons: No Advance Directives: No Advance Directives Information Provided: Yes Advance Directives Date on File: 02/26/20 Do you have a plan to hurt others: No Plan service: No Current occupational status: disabled Gender identity: Female Cognitive needs: No Hearing needs: No Vision needs: Yes (Glasses) Physical Exam ED Vital Signs: Vital Signs - 24 hr 09/20/24 20:53 09/20/24 23:09 09/20/24 23:58 Temperature 97.8 F 98.2 F 98.4 F Pulse Rate 95 80 79 Respiratory Rate 20 19 25 H Blood Pressure 135/80 122/79 119/68 Pulse Oximetry 98 99 96 Oxygen Delivery Method Room Air Room Air Room Air 09/21/24 00:00 09/21/24 00:03 09/21/24 03:10 Temperature 98.4 F 98.4 F Pulse Rate 79 79 78 Respiratory Rate 25 H 25 H 15 Blood Pressure 119/68 119/68 129/75 Pulse Oximetry 96 96 98 Oxygen Delivery Method Room Air Room Air Room Air 09/21/24 05:20 Temperature 97.9 F Pulse Rate 77 Respiratory Rate 14 Blood Pressure 115/72 Pulse Oximetry 98 Oxygen Delivery Method Room Air BMI result Body Mass Index 31.8 Const Other: Appearance: Alert. Oriented X3. No acute distress. Eyes: Pupils equal, round and reactive to light. ENT: Pharynx normal. Neck: Normal inspection. Neck supple. No lymph nodes noted. No crepitus CVS: Normal heart rate and rhythm. Pulses normal. Normal S1 and S2 Respiratory: No respiratory distress. Breath sounds normal. No Wheezing. No rales Abdomen: Soft and nontender. No rigidity. No distention. Skin: Skin warm and dry. Normal skin color. Normal skin turgor. Extremities: No lower extremity edema. No Lacerations. No Rash, there seems to be an effusion on the left side of the knee. Patient able to flex and extend, no pain to palpation, no additional warmth Neuro: Oriented X 3. No motor deficit. No sensory deficit. Moving all extremities. No slurred speech. CN 2 through 12 grossly intact Psych: calm, cooperative, normal affect Course Course Course Narrative: Patient was able to show me the trending creatinine in the past few months. Patient usually runs around 1.3. Today is 1.5. I discussed with the patient that given her history of kidney transplant and recent history of and clarity of how much tacrolimus she has been taking, patient admit her. Patient states that she has court this morning and does not want to miss this date, because it is related to her housing situation. I discussed with the patient that we will start with IV fluids, then rechecked creatinine. Patient agrees with plan X-rays of the left knee: Osteoarthritic changes. There is a Debbi Stieda lesion indicating a remote medial collateral ligament injury, pt instructed to follow up with orthopedics. pt states that she already has an apt with ortho pending After IV fluids, patient's creatinine improved to 1.23 Patient feels well, no chest pain, no nausea or shortness of breath. Patient feels well to be discharged. Medications Administered Discontinued Medications Generic Name Dose Route Start Last Admin Trade Name Freq PRN Reason Stop Dose Admin Sodium Chloride 1,000 mls @ 999 mls/hr 09/21/24 04:46 09/21/24 06:49 Ns IVCONT 09/21/24 05:46 Infused .Q1H1M ONE Infusion Ondansetron HCl 4 mg 09/21/24 02:58 09/21/24 03:01 Ondansetron Odt 4 Mg Tab.Rapdis TRANSLINGU 09/21/24 02:59 4 mg ONCE ONE Administration Medical Decision Making Medical Decision Making [facility] Narrative: Creatinine improved with IV hydration I discussed with the patient to contact her provider so that she can take the correct dose of tacrolimus which is extremely important Differential Diagnosis Differential Diagnoses: The differential diagnosis associated with the presentation includes (AVERY, dehydration, medication side-effect) Admission/Observation Consideration of admission/observation: Escalation of care including admission/observation considered (Admission initially was offered, patient declined, patient needs to attend the meeting today regarding her current living situation) Lab Data [facility] Lab Attestation statement: I reviewed the patient's lab results. 09/20/24 21:03 09/21/24 07:25 Labs: Lab Results 09/20/24 09/21/24 09/21/24 Range/Units 21:03 03:12 07:25 WBC 5.3 (4.8-10.8) X10*3/uL RBC 4.80 (4.20-5.50) X10*6/uL Hgb 13.4 (12.0-16.0) g/dl Hct 40.6 (37.0-47.0) % MCV 84.6 (80.0-98.0) fL MCH 27.9 (27.0-33.0) pg MCHC 33.0 (31.0-35.0) g/dl RDW 14.2 (11.0-16.0) % Plt Count 280 (160-400) X10*3/uL MPV 10.3 (9.4-12.3) fL Immature Gran % (Auto) 0.4 (0.0-0.4) % Neut % (Auto) 66.0 (45-73) % Lymph % (Auto) 21.8 (20-40) % Apache % (Auto) 8.5 (2-11) % Eos % (Auto) 2.7 (0-4) % Baso % (Auto) 0.6 (0-2) % Lymph # (Auto) 1.2 (1.2-4.9) X10*3/uL [place] # (Auto) 0.5 (0.1-1.2) X10*3/uL Eos # (Auto) 0.1 (0.0-0.4) X10*3/uL Baso # (Auto) 0.0 (0.0-0.2) X10*3/uL Abs Immat Gran (auto) 0.02 (0.00-0.03) X10*3/uL Absolute Neuts (auto) 3.5 (2.0-8.3) x10*3/uL Absolute Nucleated RBC 0.000 (0.0-0.012) X10*3/uL Nucleated RBC % (auto) 0.0 (0.0-0.2) /100WBC Sodium 140 140 (135-145) mmol/L Potassium 3.5 3.5 (3.3-5.1) mmol/L Chloride 112 H 116 H (96-108) mmol/L Carbon Dioxide 17 L 15 L (22-29) mmol/L Anion Gap 15 13 (12-20) BUN 22 H 22 H (9-16) mg/dL Creatinine 1.51 H 1.28 (0.5-1.4) mg/dL Estim Creat Clear Calc 51.9 61.1 Estimated GFR 37 45 Random Glucose 97 107 (60-115) mg/dL Calcium 9.4 8.6 D (8.4-10.2) mg/dL Total Bilirubin 0.4 (0.0-1.0) mg/dL AST 25 (5-31) U/L ALT 17 (0-31) U/L Alkaline Phosphatase 93 (39-117) U/L Troponin I High Sens 5.3 (<3.5-17.0) ng/L Total Protein 8.6 H (6.5-8.0) g/dL Albumin 4.2 (3.5-5.0) g/dL Urine Color Yellow Urine Appearance Clear Urine pH 5.5 (5.0-9.0) Ur Specific Elsie 1.020 (1.005-1.025) Urine Protein 30 (1+) H (Neg-Trace) mg/dL Urine Glucose (UA) Negative (Negative) mg/dL Urine Ketones Trace (Negative) mg/dL Urine Blood Negative (Negative) Urine Nitrite Negative (Negative) Ur Leukocyte Esterase Trace H (Negative) Urine RBC 0-2 (0-2) /HPF Urine WBC 0-5 (0-5) /HPF Ur Squamous Epith Cells 6-10 (0-2) /HPF Urine Bacteria None Seen (None Seen) Hyaline Casts 3-5 (0-2) /LPF Critical Care Time Critical Care Time Critical Care Time: Yes Total Critical Care Time: 60 Attestation: I have personally provided critical care time. Time includes review of lab data, radiology results, discussion with consultants, and monitoring for potential decompensation. Intervention performed as documented. Discharge Plan Discharge Clinical Impression: Acute kidney injury, Knee osteoarthritis Patient Disposition: Home, Self-Care Instructions: Acute Kidney Injury (DC), Osteoarthritis (ED) Additional Instructions: Please follow-up with your primary care physician tomorrow. Please make sure that you contact your provider that prescribes tacrolimus, you need to know exactly which medications/pills you need to take, this medication is extremely important for you kidney. If you have any worsening or new symptoms, please return to the emergency room or call 911 Prescriptions: No Action (DME) nebulizers [AeroEclipse II Nebulizer] [facility] See Rx Instructions .Route Qty: 1 0RF Rx Instructions: As directed albuterol sulfate 2.5 mg /3 mL (0.083 %) solution for nebulization 2.5 mg inhalation Q6H PRN (Reason: shortness of breath or wheezing) 15 Days Qty: 180 0RF amlodipine 10 mg tablet 10 mg PO DAILY 90 Days Qty: 90 1RF Mounjaro 15 mg/0.5 mL pen injector 15 mg subcut QWEEK 28 Days Qty: 2 3RF sennosides [senna] 8.6 mg tablet 8.6 mg PO BID 90 Days Qty: 180 1RF pantoprazole 40 mg tablet,delayed release (DR/EC) 40 mg PO DAILY 90 Days Qty: 90 1RF (DME) OneTouch Verio test strips Strip See Rx Instructions .ROUTE TID Qty: 100 3RF Rx Instructions: Testing daily as needed ergocalciferol (vitamin D2) 1,250 mcg (50,000 unit) capsule 1,250 mcg PO QWEEK 84 Days Qty: 12 1RF sodium citrate-citric acid 500-334 mg/5 mL solution 10 ml PO BID 30 Days Qty: 600 3RF docusate sodium [Dulcolax Stool Softener (dss)] 100 mg capsule 100 mg PO BID 90 Days Qty: 180 1RF famotidine [Pepcid] 20 mg tablet 20 mg PO DAILY 90 Days Qty: 90 1RF mycophenolate mofetil [CellCept] 250 mg capsule 500 mg PO BID 90 Days Qty: 360 1RF Rx Instructions: Transplant date 10/04/2020- 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 1 mg capsule 3 mg PO Q12H 90 Days Qty: 540 1RF Rx Instructions: Transplant date 10/04/2020- 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 5 mg capsule 10 mg PO Q12H 90 Days Qty: 360 1RF Rx Instructions: Transplant date 10/04/2020- 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 guaifenesin 200 mg/5 mL liquid 200 mg PO Q4H PRN (Reason: cough) Qty: 118 0RF Cepacol Sore Throat (andres-men) 15-2.6 mg lozenge 1 sammie mucous membrane Q2-4H PRN (Reason: sore throat) Qty: 16 0RF acetaminophen 650 mg tablet extended release 650 mg PO Q12H 30 Days Qty: 60 0RF (DME) lancets [OneTouch Delica Plus Lancet] 33 gauge misc See Rx Instructions .ROUTE TID Qty: 100 Rx Instructions: As directed valganciclovir 450 mg tablet PO albuterol sulfate 90 mcg/actuation HFA aerosol inhaler 1 inh inhalation QID PRN (Reason: shortness of breath or wheezing) 180 Days Qty: 6.7 0RF Nexplanon 68 mg implant 68 mg subdermal DAILY chlorhexidine gluconate [Hibiclens] 4 % liquid topical estradiol 0.01 % (0.1 mg/gram) cream vaginal gentamicin 0.3 % drops 1 drp ophthalmic (eye) Q8H 5 Days Qty: 5 0RF Print Language: Yakut
[2024-09-21] MEDS: 0.9 % Sodium Chloride 1,000 ML 999 ML IVCONT (05:00)
[2024-09-21 05:20] VITALS: BP 115/72; PULSE 77; RESP 14; TEMP 36.6; O2SAT 98
--- NOTE | 2024-09-21 05:23 | PC.NURSE ---
22g Iv, placed on the right hand, fluid hung
--- NOTE | 2024-09-21 06:37 | PC.NURSE ---
pt is a difficult stick, several attempt to get labs, per the lab finger stick is okay,
[2024-09-21 07:45] LABS: Anion Gap 13 (12-20); Blood Urea Nitrogen 22 mg/dL (9-16); Calcium 8.6 mg/dL (8.4-10.2); Carbon Dioxide 15 mmol/L (22-29); Chloride 116 mmol/L (96-108); Creatinine Clr Calc Pharmacy 61.1; Estimated Glomerular Filt Rate 45; Glucose Random 107 mg/dL (60-115); Potassium 3.5 mmol/L (3.3-5.1); Sodium 140 mmol/L (135-145)
[2024-09-21 08:26] VITALS: BP 103/65; PULSE 79; RESP 24; TEMP 36.7; O2SAT 98
--- NOTE | 2024-09-21 08:50 | PC.NURSE ---
pt requesting lab results for provider out of [facility] - explained that patient can call medical records to have results sent to provider. kidney values written down on discharge paperwork for pt reference.
== END 2024-09-21 08:52 | disposition home or self-care (01) ==
PROVIDERS: Emergency Provider Emergency Medicine; PCP Physician Assistant
DX: N17.9 Acute kidney failure, unspecified (principal); M25.562 Pain in left knee; M17.12 Unilateral primary osteoarthritis, left knee
CPT/HCPCS: 36415; 73560; 80048; 80053; 81001; 84484; 85025; 93005; 96360; 96361; 99284; 99285

== ENCOUNTER → 2024-09-20 20:45 | Outpatient (BNV) | payer MEDICARE, MEDICAID, SELFPAY | PROVIDERS: Emergency Provider Emergency Medicine; PCP Physician Assistant; Visit Provider Internal Medicine | DX: R07.9 Chest pain, unspecified (principal) | CPT/HCPCS: 93010 ==

== ENCOUNTER 2024-09-29 15:32 | Outpatient (AMB) | payer MEDICARE, MEDICAID, SELFPAY ==
--- OUTSIDE RECORDS SUMMARY | 2024-09-29 15:35 | XMS_ITS ---
Author Organization [facility] Address [address] [place] [address] Care Team Providers Care Production Administrator Name Role Phone Alexx Baum Primary Care Provider Unavailab Nan Roper Unavailable [phone] REASON FOR VISIT Missbooked Encounters Encounter Location Date Provider Diagnosis [facility] [address] [place] [address] 07/05/2024 Nan Phillips Plan Of Treatment No Information Progress Notes * Dara ROBLES RDOB:1975 (48 yo F)Acc No.[id number]:07/05/2024 Progress Note Patient:?Dara ROBLES Provider:?Nan Phillips DPM :1975???Age:48 Y???Sex:Female D ate:07/05/2024 Address:[address] [place], [place] [id number] Pcp:Alexx Baum Subjective: * Chief Complaints: * [...] Phillips DPM Date:? Generated for Printi ng/Faxing/eTransmitting on:?09/29/2024 03:34 PM EDT
--- NOTE | 2024-09-29 15:36 | HO.NEPHOV ---
Vital Signs 09/29/24 15:41 Height 5 ft 6 in Weight 199 lb BMI 32.1 BP 115/72 Blood Pressure Location Rt brachial Position Sitting Pulse 59 Pulse Source Pulse Oximeter Pulse Oximetry (%) 100 Oxygen Delivery Method Room Air Intake Visit Reasons: INP: Urgent referral/Kidney transplant status Environmental Compliance Specialist Required: No Accompanied by: Self / Same As Patient Allergies lisinopril [LISINOPRIL] Allergy (Intermediate, Verified 09/29/24 15:42) EYES SWELL SHUT, angioedema, angioedema tramadol [TRAMADOL] Allergy (Intermediate, Verified 09/29/24 15:42) HIVES piperacillin [Zosyn] Allergy (Mild, Verified 09/29/24 15:42) rash cefazolin Allergy (Unknown, Verified 09/29/24 15:42) Unknown hydrocodone [From VICODIN] Allergy (Unknown, Verified 09/29/24 15:42) UNKNOWN ibuprofen [From Motrin] Allergy (Unknown, Verified 09/29/24 15:42) Unknown shellfish derived Allergy (Unknown, Verified 09/29/24 15:42) Unknown Sulfa (Sulfonamide Antibiotics) [SULFA (SULFONAMIDE ANTIBIOTICS)] Allergy (Unknown, Verified 09/29/24 15:42) UNKNOWN vancomycin Allergy (Unknown, Verified 09/29/24 15:42) rash azithromycin Adverse Reaction (Intermediate, Verified 09/29/24 15:42) dizziness/AVERY Do you need a note to return to daycare/school/sports/work: No HPI Comments Details: 48-year-old lady with past medical history of ESRD secondary to hypertension related atherosclerotic vascular disease who was on dialysis for over 12 years is status post living donor/ disease donor kidney transplant in 09/2020 received donor kidney with KDPI 49% her pre transplant cPRA was 0, EPTS was 22. Donor CMV: + Recipient CMV: + (low risk). She last saw a transplant direct care provider in [place] 8 months ago and here to establish care. [facility] Medical History History of pulmonary embolism Chronic kidney disease Ankylosing spondylitis of lumbar region Right lumbar radiculopathy Surgical History S/P kidney transplant Status post dialysis Hx of bilateral breast reduction surgery Family History Mother No problems noted. Father No problems noted. Brother Substance abuse Social History Household Members: None Housing: Apartment Are you a primary care tech to a significant other at home: No Do you presently have visiting nurse or other home services: No Alcohol intake: never Patient Tobacco Use Status: Former Tobacco user Years Smoked: 15 e-Cigarette/Vaping Use: Never Used Second Hand Smoke Exposure: Yes Advance Directives Date on File: 02/26/20 service: No Current occupational status: disabled Gender identity: Female Cognitive needs: No Hearing needs: No Vision needs: Yes (Glasses) Female Reproductive History Menstrual Age of Menarche: 17 Review of Systems Const Details: Const Denies body aches, Denies chills, Denies excessive sweating and Denies fatigue Eyes Denies blurry vision and Denies change in vision ENT Denies bleeding gums and Denies change in voice Card Denies chest pain and Denies leg ulcers Resp Denies cough and Denies excessive phlegm production GI Denies abdominal pain and Denies bloating Denies hematuria, Denies urinary frequency and Denies difficulty voiding Musc Denies abnormal gait Neuro Denies Neuro-related abnormal movements, Denies abnormal gait and Denies behavioral changes Psych Denies behavioral changes and Denies change in appetite Endo Denies change in body appearance, Denies cold intolerance, Denies excessive sweating and Denies fatigue Physical Exam General: Middle aged, happy, black lady who is not in any acute distress, comfortable, sitting on the chair Nutritional Appearance: well nourished and overweight Eyes: appearance normal, both eyes and all related structures; Alignment and Position: alignment normal and position normal Neck: No lymphadenopathy, no thyromegaly Resp: bilateral air entry equal, no added sounds present Cardio: Regular rate, regular rhythm; Heart sounds: S1 normal heart sound present and S2 normal heart sound present, no edema GI: soft, nontender, no guarding, no hepatosplenomegaly, no bruit on the graft, no graft tenderness. : bladder normal to inspection, bladder normal to palpation, no renal angle tenderness Skin: no rashes or lesions noted and elasticity normal Neuro: oriented to person, oriented to place, oriented to time and moves all extremities Results Reviewed Nephrology Results: Hgb 13.4 g/dl (12.0-16.0) 09/20/24 WBC 5.3 X10*3/uL (4.8-10.8) 09/20/24 Plt Count 280 X10*3/uL (160-400) 09/20/24 Sodium 140 mmol/L (135-145) 09/21/24 Potassium 3.5 mmol/L (3.3-5.1) 09/21/24 Chloride 116 mmol/L (96-108) H 09/21/24 Carbon Dioxide 15 mmol/L (22-29) L 09/21/24 BUN 22 mg/dL (9-16) H 09/21/24 Creatinine 1.28 mg/dL (0.5-1.4) 09/21/24 Calcium 8.6 mg/dL (8.4-10.2) 09/21/24 Urine Protein 30 (1+) mg/dL (Neg-Trace) H 09/21/24 Assessment & Plan Assessment & Plan (1) DMII (diabetes mellitus, type 2): Code(s): E11.9 - Type 2 diabetes mellitus without complications Category: Medical Qualifiers: Diabetes mellitus complication status: with hyperglycemia Diabetes mellitus shelter insulin use: without shelter use Qualified Code(s): E11.65 - Type 2 diabetes mellitus with hyperglycemia (2) S/P kidney transplant: Comment: post op complication, clots removed kidney surface Code(s): Z94.0 - Kidney transplant status Category: Surgical (3) ESRD (end stage renal disease): Code(s): N18.6 - End stage renal disease Category: Medical Plan This patient is status post living donor/ disease donor kidney transplant in 09/2020 received donor kidney with KDPI 49% , her pre transplant cPRA was 0, EPTS was 22 . Donor CMV: + Recipient CMV: + (low risk) Primary disease: hypertensive atherosclerotic vascular disease Graft function: stable Creatinine: 1.28 GFR: 45 Urinalysis showed: 1+ protein will quantify with UACR/ UPCR: Immunosuppression: Patient is currently on- tacrolimus 7mg AM and 8mg at night , will get tacrolimus level most recent level 5 in 06/2024 (tacrolimus goal 4-8) CellCept: 500mg BID taken off prednisone 5mg since due to weight gain. Infections: post transplant needed wound vac for 2 months, none since 2021. hepatitis panel, HIV negative in 06/2024. Prophylaxis: BK/CMV monitoring every 3-6 months. Vaccinations: Pneumococcal, Shingrix, Hepatitis B shot, COVID 19- received all of them will try to get ur vaccination history. normal anion gap metabolic acidosis: bicarb 15, possibly due to tacrolimus continue bicitra, will repeat BMP Hypertension: Blood pressure well-controlled Continue amlodipine 10mg. will get lipid panel HbA1c 5.3, on Monjauro. Reinforced the importance of medication adherence, infection precautions and hand hygiene. Reviewed signs of rejection/infection Advised to avoid NSAIDs, monitor blood pressure and weight closely Follow-up in 4 months Orders: Orders CMV DNA PCR Qn Today N18.6 - End stage renal disease, Z94.0 - Kidney transplant status Microalbumin, Random (w Creat) Today N18.6 - End stage renal disease, Z94.0 - Kidney transplant status Creatinine Urine Today N18.6 - End stage renal disease, Z94.0 - Kidney transplant status Lipid Panel Today N18.6 - End stage renal disease, Z94.0 - Kidney transplant status Magnesium Today N18.6 - End stage renal disease, Z94.0 - Kidney transplant status BK Virus DNA QL Plasma Today N18.6 - End stage renal disease, Z94.0 - Kidney transplant status Total Protein Urine Random Today N18.6 - End stage renal disease, Z94.0 - Kidney transplant status Tacrolimus Prograf Today N18.6 - End stage renal disease, Z94.0 - Kidney transplant status Basic Metabolic Panel Today N18.6 - End stage renal disease, Z94.0 - Kidney transplant status Scribe Plan - Not visible on output: Coding Level of Care Code New Pt Level 4 (94086) Diagnoses Type 2 diabetes mellitus with hyperglycemia, without long-term current use of insulin E11.65 Diabetes mellitus complication status: with hyperglycemia Diabetes mellitus shelter insulin use: without shelter use S/P kidney transplant Z94.0 ESRD (end stage renal disease) N18.6
[2024-09-29 15:41] VITALS: BP 115/72; PULSE 59; O2SAT 100; BMI 32.1
== END 2024-09-29 16:22 | disposition home or self-care (01) ==
LOC: HO.HKA 15:33
PROVIDERS: PCP Physician Assistant; Referring Provider Physician Assistant; Visit Provider Internal Medicine Critical Care Medicine
DX: E11.65 Type 2 diabetes mellitus with hyperglycemia (principal); Z94.0 Kidney transplant status; N18.6 End stage renal disease
CPT/HCPCS: 99204

== ENCOUNTER → 2024-09-29 15:32 | Outpatient (BNVA) | payer MEDICARE, MEDICAID, SELFPAY | PROVIDERS: PCP Physician Assistant; Referring Provider Physician Assistant; Visit Provider Internal Medicine Critical Care Medicine | DX: E11.65 Type 2 diabetes mellitus with hyperglycemia (principal); E11.22 Type 2 diabetes mellitus with diabetic chronic kidney disease; N18.6 End stage renal disease; Z94.0 Kidney transplant status | CPT/HCPCS: 99202 ==

== ENCOUNTER 2024-09-30 07:53 | Outpatient (REF) | payer MEDICARE, MEDICAID, SELFPAY ==
[2024-09-30 08:33] LABS: Hematocrit 42.5 % (37.0-47.0); Hemoglobin 13.8 g/dl (12.0-16.0); Mean Corpuscular HGB Conc 32.5 g/dl (31.0-35.0); Mean Corpuscular Hemoglobin 27.5 pg (27.0-33.0); Mean Corpuscular Volume 84.7 fL (80.0-98.0); Mean Platelet Volume 10.4 fL (9.4-12.3); Platelet Count 295 X10*3/uL (160-400); Red Blood Count 5.02 X10*6/uL (4.20-5.50); Red Cell Distribution Width 14.5 % (11.0-16.0)
[2024-09-30 09:20] LABS: Alanine Aminotransferase 23 U/L (0-31); Albumin Level 4.2 g/dL (3.5-5.0); Alkaline Phosphatase 99 U/L (39-117); Anion Gap 14 (12-20); Aspartate Amino Transferase 33 U/L (5-31); Bilirubin Total 0.3 mg/dL (0.0-1.0); Blood Urea Nitrogen 27 mg/dL (9-16); Calcium 9.3 mg/dL (8.4-10.2); Carbon Dioxide 17 mmol/L (22-29); Chloride 113 mmol/L (96-108); Cholesterol 117 mg/dL (<200); Estimated Glomerular Filt Rate 34; Glucose Fasting 91 mg/dL (60-99); Glucose Random 91 mg/dL (60-115); HDL Cholesterol 33 mg/dL (>40); Iron 57 mcg/dL (30-160); LDL Cholesterol Calculated 70 mg/dL (<100); Magnesium 1.5 mg/dL (1.6-2.6); Percent Iron Saturation 25 % (15-50); Potassium 4.2 mmol/L (3.3-5.1); Sodium 140 mmol/L (135-145); Total Iron Binding Capacity 224 mcg/dL (228-428); Total Protein 8.5 g/dL (6.5-8.0); Triglycerides 72 mg/dL (<150); Unsaturated Iron Binding 167 ug/dL
[2024-09-30 10:36] LABS: Creatinine Urine 141.19 mg/dL; Microalbum/Creatinine Ratio Ur 50.2 ug/mg cr (<30); Total Protein Urine Random 28 mg/dL (<12)
[2024-10-02 12:18] LABS: Tacrolimus Prograf 9.3 mcg/L
[2024-10-03 20:48] LABS: CMV DNA Qn PCR NOT DETECTED Log IU/mL (NOT DETECTED); CMV DNA Qn Real Time PCR NOT DETECTED (NOT DETECTED)
[2024-10-05 00:09] LABS: BK Virus DNA QL Plasma Not Detected (Not Detected); BK Virus DNA QL Source Plasma
== END 2024-09-30 07:54 | disposition home or self-care (01) ==
LOC: HO.LAB 07:53
PROVIDERS: PCP Physician Assistant; Visit Provider Internal Medicine Critical Care Medicine
DX: E11.65 Type 2 diabetes mellitus with hyperglycemia (principal); D50.0 Iron deficiency anemia secondary to blood loss (chronic); N18.6 End stage renal disease; Z94.0 Kidney transplant status
CPT/HCPCS: 36415; 80048; 80053; 80061; 80197; 82043; 82570; 83540; 83735; 84156; 85027; 87497; 87798

== ENCOUNTER 2024-10-05 11:58 | Outpatient (REF) | payer MEDICARE, MEDICAID, SELFPAY ==
--- OUTSIDE RECORDS SUMMARY | 2024-07-05 07:30 | XMS_ITS ---
Author Organization [facility] Address [address] [place] [address] Care Team Providers Care Wholesale And Retail Merchant Name Role Phone Alexx Baum Primary Care Provider Unavailab Nan Roper Unavailable [phone] REASON FOR VISIT Missbooked Encounters Encounter Location Date Provider Diagnosis [facility] [address] [place] [address] 07/05/2024 Nan Phillisp Plan Of Treatment No Information Progress Notes * Dara ROBLES RDOB:1975 (48 yo F)Acc No.[id number]:07/05/2024 Progress Note Patient: Dara ABDALLA Provider: Allie Phillips DPM :1975 A ge:48 Y S ex:Female Date:07/05/2024 Address:[address] [place], [place] [phone] Pcp:Alexx Baum Subjective: * Chief Complaints: * [...] Date: 07/05/2024 Generated for Printi ng/Faxing/eTransmitting on: 10/05/2024 09:04 AM EDT
--- NOTE | ~2024-10-05 | MM_ITS ---
EXAMINATION: MM DIAGNOSTIC DIGITAL BREAST TOMOSYNTHESIS, RIGHT CLINICAL INFORMATION: Right palpable breast lump COMPARISON: Mammography: [facility] on PACS. TECHNIQUE: Digital breast tomosynthesis is performed in both the craniocaudal and mediolateral oblique views along with computer-aided detection (CAD). Synthesized 2D images are generated from the tomosynthesis. FINDINGS: There are scattered areas of fibroglandular density (ACR BI-RADS breast composition Category b). BB marker in the upper outer quadrant at site of palpable lump with an underlying oval early rim calcified area of fat necrosis/oil cyst. No suspicious calcifications or other abnormal findings. Marker clip. Targeted color Doppler ultrasound scanning in the area the patient's right breast palpable lump at 11:00 8 cm from the nipple demonstrates an associated oil cyst at 11:00 6 cm from nipple measuring 7 x 7 x 6 mm. MM/MM tomosynthesis diagnostic RT IMPRESSION: Benign oil cyst/area of fat necrosis at the area the patient's palpable lump. Benign. ASSESSMENT: BI-RADS BI-RADS 2 - Benign Findings RECOMMENDATION: 1 year F/U Results were provided to the patient at time of visit by the technologist. This patient's information was entered into a reminder system with a target due date for their next mammogram. Electronically signed by: Sugar Lucero DO 10/05/2024 01:15 PM EDT
== END 2024-10-05 11:59 | disposition home or self-care (01) ==
LOC: HO.MAMMO 11:58
PROVIDERS: PCP Physician Assistant
DX: N63.11 Unspecified lump in the right breast, upper outer quadrant (principal)
CPT/HCPCS: 76642; 77061; 77065

== ENCOUNTER → 2024-10-05 12:30 | Outpatient (BNV) | payer MEDICARE, MEDICAID, SELFPAY | PROVIDERS: PCP Physician Assistant; Visit Provider Internal Medicine | DX: N60.01 Solitary cyst of right breast (principal); R92.321 Mammographic fibroglandular density, right breast; Z97.8 Presence of other specified devices | CPT/HCPCS: 76642; 77065; G0279 ==

== ENCOUNTER 2024-10-16 06:01 | Outpatient (REF) | payer MEDICARE, MEDICAID, SELFPAY ==
[2024-10-16 10:35] LABS: Anion Gap 15 (12-20); Blood Urea Nitrogen 29 mg/dL (9-16); Calcium 9.3 mg/dL (8.4-10.2); Carbon Dioxide 15 mmol/L (22-29); Chloride 112 mmol/L (96-108); Estimated Glomerular Filt Rate 48; Glucose Random 74 mg/dL (60-115); Potassium 3.8 mmol/L (3.3-5.1); Sodium 138 mmol/L (135-145)
[2024-10-16 11:18] LABS: Creatinine Urine 59.75 mg/dL
[2024-10-17 08:59] LABS: Tacrolimus Prograf 7.4 mcg/L
== END 2024-10-16 06:02 | disposition home or self-care (01) ==
LOC: HO.HMGCLDS 06:01
PROVIDERS: PCP Physician Assistant; Visit Provider Internal Medicine Critical Care Medicine
DX: N18.6 End stage renal disease (principal); Z94.0 Kidney transplant status; Z79.899 Other long term (current) drug therapy
CPT/HCPCS: 36415; 80048; 80197; 82570

== ENCOUNTER 2024-10-31 13:58 | Outpatient (AMB) | payer MEDICARE, MEDICAID, SELFPAY ==
--- OUTSIDE RECORDS SUMMARY | 2024-07-05 07:30 | XMS_ITS ---
Author Organization [facility] Address [address] [place] [address] Care Team Providers Care Bradley Linebacker Crewmember Name Role Phone Alexx Baum Primary Care Provider Unavailab Nan Roper Unavailable [phone] REASON FOR VISIT Missbooked Encounters Encounter Location Date Provider Diagnosis [facility] [address] [place] [address] 07/05/2024 Nan Phillips Plan Of Treatment No Information Progress Notes * Dara ROBLES RDOB:1975 (48 yo F)Acc No.[id number]:07/05/2024 Progress Note Patient: Dara ABDALLA Provider: Allie Phillips DPM :1975 A ge:48 Y S ex:Female Date:07/05/2024 Address:[address] [place], [place] [id number] Pcp:Alexx Baum Subjective: * Chief Complaints: * 1 . Missbooked. * Medical History: Objective: * Vitals: Assessment: Plan: * Treatment: * Images: * The named appointment provid er may or may not be the originator of this progress note, and it is not deemed complete until electronically signed by the appointment provider. Sign off status: Pending * Provider: Allie Phillips DPM Date: 07/05/2024 Generated for Printi ng/Faxing/eTransmitting on: 10/31/2024 03:16 PM EDT
[2024-10-31 13:57] VITALS: BP 118/70; BMI 32.6
--- NOTE | 2024-10-31 13:57 | HO.NEPHOV_ITS ---
Vital Signs 10/31/24 13:57 Height 5 ft 6 in Weight 202 lb BMI 32.6 BP 118/70 Blood Pressure Location Rt brachial Position Sitting Intake Visit Reasons: 1 mo fu w/ labs-Conf Promotion Producer Required: No Accompanied by: Self / Same As Patient Allergies lisinopril (LISINOPRIL) Allergy (Intermediate, Verified 10/31/24 14:00) EYES SWELL SHUT, angioedema, angioedema tramadol (TRAMADOL) Allergy (Intermediate, Verified 10/31/24 14:00) HIVES piperacillin (Zosyn) Allergy (Mild, Verified 10/31/24 14:00) rash cefazolin Allergy (Unknown, Verified 10/31/24 14:00) Unknown hydrocodone (From VICODIN) Allergy (Unknown, Verified 10/31/24 14:00) UNKNOWN ibuprofen (From Motrin) Allergy (Unknown, Verified 10/31/24 14:00) Unknown shellfish derived Allergy (Unknown, Verified 10/31/24 14:00) Unknown Sulfa (Sulfonamide Antibiotics) (SULFA (SULFONAMIDE ANTIBIOTICS)) Allergy (Unknown, Verified 10/31/24 14:00) UNKNOWN vancomycin Allergy (Unknown, Verified 10/31/24 14:00) rash azithromycin Adverse Reaction (Intermediate, Verified 10/31/24 14:00) dizziness/AVERY HPI Comments Details: 48-year-old lady with past medical history of ESRD secondary to hypertension related atherosclerotic vascular disease who was on dialysis for over 12 years is status post living donor/ disease donor kidney transplant in 09/2020 received donor kidney with KDPI 49% her pre transplant cPRA was 0, EPTS was 22. Donor CMV: + Recipient CMV: + (low risk). She last saw a transplant crude unit operator in [place] in Jan 2024, and was discharged from service. September 2024: tacrolimus levels increased to 9.3 and creatinine increased from 1.28 to 1.61. October 2024: after decreasing the tacrolimus levels to 7mg BID, levels down to 7.4 and creatinine improved to 1.20. No new complaints this visits except for has vaginal candidiasis. Made her aware that thiazoles can increase her tacrolimus levels, she states she is only using mucosal and local agents and not taking anything oral. Rest she is doing well, enjoying fishing and going to [place] - It's what's in store. [facility] Medical History History of pulmonary embolism Chronic kidney disease Ankylosing spondylitis of lumbar region Right lumbar radiculopathy Surgical History S/P kidney transplant Status post dialysis Hx of bilateral breast reduction surgery Family History Mother No problems noted. Father No problems noted. Brother Substance abuse Social History Household Members: None Housing: Apartment Are you a primary careers adviser to a significant other at home: No Do you presently have visiting nurse or other home services: No Alcohol intake: never Patient Tobacco Use Status: Former Tobacco user Years Smoked: 15 e-Cigarette/Vaping Use: Never Used Second Hand Smoke Exposure: Yes Advance Directives Date on File: 02/26/20 service: No Current occupational status: disabled Gender identity: Female Cognitive needs: No Hearing needs: No Vision needs: Yes (Glasses) Female Reproductive History Menstrual Age of Menarche: 17 Review of Systems Const Details: Const Denies body aches, Denies chills, Denies fatigue Eyes Denies blurry vision and Denies change in vision ENT Denies bleeding gums and Denies change in voice Card Denies chest pain and Denies leg ulcers Resp Denies cough and no respiratory symptoms GI Denies abdominal pain and Denies bloating Denies hematuria, Denies urinary frequency and Denies difficulty voiding Musc Denies abnormal gait Neuro Denies Neuro-related abnormal movements, Denies abnormal gait and Denies behavioral changes Psych Denies behavioral changes and Denies change in appetite Endo Denies change in body appearance\, Denies excessive sweating and Denies fatigue Physical Exam Vital Signs: Last Vital Signs BP 118/70 10/31/24 13:57 BMI result Body Mass Index 32.6 General: Not in any acute distress, comfortable, sitting on the chair Nutritional Appearance: well nourished and overweight Eyes: appearance normal, both eyes and all related structures; Alignment and Position: alignment normal and position normal Neck: No lymphadenopathy, no thyromegaly Resp: bilateral air entry equal, no added sounds present Cardio: Regular rate, regular rhythm; Heart sounds: S1 normal heart sound present and S2 normal heart sound present, no edema GI: soft, nontender, no guarding, no hepatosplenomegaly : bladder normal to inspection, bladder normal to palpation, no renal angle tenderness Skin: no rashes or lesions noted and elasticity normal Neuro: oriented to person, oriented to place, oriented to time and moves all extremities Results Reviewed Nephrology Results: Hgb, (12.0-16.0) 13.8 g/dl 09/30/24 WBC, (4.8-10.8) 5.0 X10*3/uL 09/30/24 Plt Count, (160-400) 295 X10*3/uL 09/30/24 Sodium, (135-145) 138 mmol/L 10/16/24 Potassium, (3.3-5.1) 3.8 mmol/L 10/16/24 Chloride, (96-108) 112 mmol/L H 10/16/24 Carbon Dioxide, (22-29) 15 mmol/L L 10/16/24 BUN, (9-16) 29 mg/dL H 10/16/24 Creatinine, (0.5-1.4) 1.20 mg/dL 10/16/24 Calcium, (8.4-10.2) 9.3 mg/dL 10/16/24 Urine Protein, (Neg-Trace) 30 (1+) mg/dL H 09/21/24 Urine Creatinine 59.75 mg/dL 10/16/24 Assessment & Plan Assessment & Plan (1) DMII (diabetes mellitus, type 2): Code(s): E11.9 - Type 2 diabetes mellitus without complications Category: Medical Qualifiers: Diabetes mellitus complication status: with hyperglycemia Diabetes mellitus long filler cigar roller machine insulin use: without penitentiary use Qualified Code(s): E11.65 - Type 2 diabetes mellitus with hyperglycemia (2) S/P kidney transplant: Comment: post op complication, clots removed kidney surface Code(s): Z94.0 - Kidney transplant status Category: Surgical (3) Hypertension: Code(s): I10 - Essential (primary) hypertension Category: Medical Plan 54 F who is s/p living donor/ disease donor kidney transplant in 09/2020 received donor kidney with KDPI 49% , her pre transplant cPRA was 0, EPTS was 22 . Donor CMV: + Recipient CMV: + (low risk) Primary disease: hypertensive atherosclerotic vascular disease Graft function: stable Creatinine: 1.28 increased to 1.61 when the tacrolimus levels increased to 9.3, is down to 1.20 after tacrolimus decreased to 7.4 GFR: 48 Urinalysis showed: 1+ protein will quantify with UACR/ UPCR: 50.2 and 198 Immunosuppression: Patient is currently on- tacrolimus 7mg AM BID , tac level 7.4 on 10/16/2024 (tacrolimus goal 4-8); will check every 3 months. CellCept: 500mg BID taken off prednisone 5mg since due to weight gain. Infections: post transplant needed wound vac for 2 months, none since 2021. hepatitis panel, HIV negative in 06/2024. Prophylaxis: BK/CMV negative in 10/11; monitor every 3-6 months. Vaccinations: Pneumococcal, Shingrix, Hepatitis B shot, COVID 19- received all of them will try to get ur vaccination history. normal anion gap metabolic acidosis: bicarb 15, possibly due to tacrolimus continue bicitra, was not taking bicitra so asked her restart the meds. Did not like sodium bicarbonate as it tasted bad. Hypertension:118/70 today Blood pressure well-controlled Continue amlodipine 10mg. lipid panel normal in 10/11 HbA1c 5.3, on Monjauro. Reinforced the importance of medication adherence, infection precautions and hand hygiene. Reviewed signs of rejection/infection Advised to avoid NSAIDs, monitor blood pressure and weight closely. Orders: Orders Microalbumin, Random (w Creat) 3 Months I10 - Essential (primary) hypertension, Z94.0 - Kidney transplant status Total Protein Urine Random 3 Months I10 - Essential (primary) hypertension, Z94.0 - Kidney transplant status Creatinine Urine 3 Months I10 - Essential (primary) hypertension, Z94.0 - Kidney transplant status UA and rflx microscopic 3 Months I10 - Essential (primary) hypertension, Z94.0 - Kidney transplant status Complete Blood Count no Diff 3 Months I10 - Essential (primary) hypertension, Z94.0 - Kidney transplant status Tacrolimus Prograf 3 Months I10 - Essential (primary) hypertension, Z94.0 - Kidney transplant status Basic Metabolic Panel 3 Months I10 - Essential (primary) hypertension, Z94.0 - Kidney transplant status Coding Level of Care Code Est Pt Level 4 (32786) Diagnoses Type 2 diabetes mellitus with hyperglycemia, without long-term current use of insulin E11.65 Diabetes mellitus complication status: with hyperglycemia Diabetes mellitus penitentiary insulin use: without penitentiary use S/P kidney transplant Z94.0 Hypertension I10
--- OUTSIDE RECORDS SUMMARY | 2024-10-31 15:16 | XMS_ITS | Clinical Summary ---
Author Organization [facility] Address [address] [place] [address] Care Team Providers Care Sharepoint Web Developer Name Role Phone Unavailable Primary Care Provider [...] meals. 270 Cap 2 3 Active b bvgsroz-O-pfikj acid (NEPHROCAPS) 1 mg per capsuleIndicatio ns:ESRD (end stage renal disease) on dialysis ([facility]) Take 1 Cap by mouth once daily. 30 Cap 4 3 Active loratadine (CLARITIN) 10 mg tabletIndication s:Allergic rhinitis Take 1 Tab by mouth once daily as needed for allergies. Active diphenhydrAMINE (BENADRYL) 50 mg tabletIndication s:ESRD (end stage renal disease) on dialysis ([facility]) Take 1 Tab by mouth as needed. [...] (two) times daily. 15 g Active b svkzrjg-E-qxtci acid (RENAL CAPS) 1 mg per capsuleIndicatio ns:ESRD (end stage renal disease) on dialysis ([facility]) Take 1 Cap by mouth once daily. [...] ESRD (end stage renal disease) on dialysis ([facility]) Overview (01/03/2013): Goes [facility] 2x[facility]week, as No Financial Coach in area will take her as patient due past poor behavior and non-compliance. Eczema ASTHMA MODERATE PERSISTENT Overview (01/02/2013): Tobacco abuse Hyperlipidemia Hidradenitis suppurativa Overview (01/02/2013): Wound care follow up Dr. Mcbride Borderline personality disorder ([facility]) Overview (01/03/2013): Non-compliant with psych f/u. GERD (gastroesophageal reflux disease) Constipation Allergic rhinitis Vulvar candidiasis Right hip pain Immunizations Immunization Administration Dates Next Due Hep B, Adult/Adol ([id number]/RECOMBIVAX-ADULT) 08/09/2008,07/19/2008,03/06/2008 PPD 07/03/2005 Social History Tobacco Use Types Packs/Day Years Used Date Smoking Tobacco: Never Assessed Comments Unknown Sex and Gender Information Value Date Recorded Sex Assigned at Not on file Legal Sex Female 11:36 AM PDT Gender Identity Not on file Sexual Orientation Not on file Plan of Treatment Not on file Insurance [place] - [place]
--- OUTSIDE RECORDS SUMMARY | 2024-10-31 15:16 | XMS_ITS | Encounter Summary ---
Author Organization [facility], Address [address] [place] [address] Phone Care Team Providers Care Human Resources Coordinator Name Role Phone Nissa Mckeon DO Primary Care Pro vider Encounter Details Date Type Department Care Team ([facility] Contact Info) Description 05/23/2021 Documentation Only [facility], [address] [place] [address] Rob Lagunas MD [address] [place] [address] Social History Tobacco Use Types [...] on filedocumented in this encounter Care Teams Human Resources Coordinator Relationship Specialty Start Date End Date Nissa Mckeon DO PCP - General 04/29/20 documented as of this encounter
--- OUTSIDE RECORDS SUMMARY | 2024-10-31 15:16 | XMS_ITS | Clinical Summary ---
Author Organization [facility] Address [address] [place] [address] Care Team Providers Care Endoscopy Registered Nurse Name Role Phone Unavailable Primary Care Provider Unavailabl e Surgical History Surgery Date Site/Laterality Comments OTHER SURGICAL HISTORY PROCEDURE: AV FISTULA OR GRAFT ARTERIAL PARATHYROIDECTOMY PROCEDURE: HISTORICAL PARATHYROIDECTOMY OTHER SURGICAL HISTORY PROCEDURE: TX PRTL THYROID LOBECTOMY UNI W/WO ISTHMUSECTOMY Medical History Medical History Date Comments HTN (hypertension) DX:HTN (hyper tension) ESRD (end stage renal diseas e) [place] DX:ESRD (end stage renal dis ease) ([facility]); COMMENT: hd at [facility] er/icu; babu Anxiety DX:Anxiety Depression DX:Depression Bipolar disorder ([facility], [facility]) DX:Bipolar disorder ([facility]); C OMMENT: [facility] therapist Secondary hyperparathyroidis m ([facility]) DX:Secondary hyperparathyroi dism ([facility]) Asthma DX:Asthma Tobacco use DX:Tobacco use Hidradenitis suppurativa DX:Hidr adenitis suppurativa History of substance abuse ( [facility] [place]) DX:History of substance abus e ([facility]) GERD (gastroesophageal reflux disease) DX:GERD (gastroesophageal reflux [...] - 2023-2 5 season) 2023 Influenza Vaccine (#1) 2024 Pneumococcal Vaccine: Pediat rics (0 to 5 Years) and At-Risk Patients (6 to 49 Years) Aged Out 10/13/2013 No longer eligi [...]
--- OUTSIDE RECORDS SUMMARY | 2024-10-31 15:17 | XMS_ITS | Clinical Summary ---
Author Organization [facility] Address [address] [place] [address] Care Team Providers Care Developmental Therapist Name Role Phone Unavailable Primary Care Provider Unavailabl e Social History Tobacco Use Types Packs/Day Years Used Date Smoking Tobacco: Never Assessed Sex and Gender Information Value Date Recorded Sex Assigned at Not on file Gender Identity Not on file Sexual Orientation Not on file Plan of Treatment Not on file
--- OUTSIDE RECORDS SUMMARY | 2024-10-31 15:17 | XMS_ITS ---
Author Name [facility] Organization Unknown Encounters Encounter Type Encounter Reason Primary Diagnosis Location Date Ambulatory [facility] 10/26/2022 Ambulatory [facility] 10/26/2022
--- OUTSIDE RECORDS SUMMARY | 2024-10-31 15:17 | XMS_ITS | Encounter Summary ---
Author Organization [facility] Address [address] [place] [address] Care Team Providers Care Crab Picker Name Role Phone Marce Alexandre APRN Unavailable Rob Lagunas MD Unavailable Alejandrina Eugene DO Unavailable [phone] Primary Care Provider [phone] Encounter Details Date Type Department Care Team (Late st Contact Info) Description 09/21/2018 Scanned Document [facility] [address] [address] Provider, MD Jason [address] [place] [address] Social History Tobacco Use Types Packs/Day Years [...] on filedocumented in this encounter Care Teams Crab Picker Relationship Specialty Start Date End Date Unknown Unknow Provider Address PCP - General 08/20/21 Marce Alexandre APRN [address] [address] Nurse Practitioner Surgery, Transplant 09/26/18 Rob Lagunas MD [address] [place] [address] Referring Provider Nephrology 09/26/18 Eugene Tinoco DO [address] [place] [address] Primary Care Provider Family Medicine 09/26/18 documented as of this encounter
== END 2024-10-31 14:56 | disposition home or self-care (01) ==
LOC: HO.HKA 13:59
PROVIDERS: PCP Physician Assistant; Visit Provider Internal Medicine Critical Care Medicine
DX: E11.65 Type 2 diabetes mellitus with hyperglycemia (principal); Z94.0 Kidney transplant status; I10 Essential (primary) hypertension
CPT/HCPCS: 99214

== ENCOUNTER → 2024-10-31 13:58 | Outpatient (BNVA) | payer MEDICARE, MEDICAID, SELFPAY | PROVIDERS: PCP Physician Assistant; Visit Provider Internal Medicine Critical Care Medicine | DX: E11.65 Type 2 diabetes mellitus with hyperglycemia (principal); Z94.0 Kidney transplant status; I10 Essential (primary) hypertension; Z79.899 Other long term (current) drug therapy | CPT/HCPCS: 99212 ==

== ENCOUNTER 2024-11-15 07:59 | Outpatient (REF) | payer MEDICARE, MEDICAID, SELFPAY ==
[2024-11-15 09:36] LABS: Resp Syncy Virus RNA Qual PCR NEGATIVE (Negative); SARS COV2 PCR INHOUSE NEGATIVE (Negative)
== END 2024-11-15 08:00 | disposition home or self-care (01) ==
LOC: HO.LNP 07:59
PROVIDERS: PCP Physician Assistant; Visit Provider Physician Assistant
DX: E11.65 Type 2 diabetes mellitus with hyperglycemia (principal); E11.22 Type 2 diabetes mellitus with diabetic chronic kidney disease; N18.6 End stage renal disease; E66.811 Obesity, class 1; Z68.31 Body mass index [BMI] 31.0-31.9, adult; J02.8 Acute pharyngitis due to other specified organisms; Z86.711 Personal history of pulmonary embolism; Z94.0 Kidney transplant status; Z79.85 Long-term (current) use of injectable non-insulin antidiabetic drugs
CPT/HCPCS: 83036; 87070; 87637; 99212

== ENCOUNTER 2024-11-15 07:59 | Outpatient (AMB) | payer MEDICARE, MEDICAID, SELFPAY ==
--- OUTSIDE RECORDS SUMMARY | 2024-07-05 07:30 | XMS_ITS ---
Author Organization [facility] Address [address] [place] [address] Care Team Providers Care Winery Worker Name Role Phone Alexx Baum Primary Care Provider Unavailab Nan Roper Unavailable [phone] REASON FOR VISIT Missbooked Encounters Encounter Location Date Provider Diagnosis [facility] [address] [place] [address] 07/05/2024 Nan Phillips Plan Of Treatment No Information Progress Notes * Dara ROBLES RDOB:1975 (49 yo F)Acc No.[id number]:07/05/2024 Progress Note Patient: Dara ABDALLA Provider: Allie Phillips DPM :1975 A ge:48 Y S ex:Female Date:07/05/2024 Address:[address] [place], [place] [phone] Pcp:Alexx Baum Subjective: * Chief Complaints: * 1 . Missbooked. * Medical History: Objective: * Vitals: Assessment: Plan: * Treatment: * Images: * The named appointment provid er may or may not be the originator of this progress note, and it is not deemed complete until electronically signed by the appointment provider. Sign off status: Pending * Provider: Allei Phillips DPM Date: 07/05/2024 Generated for Printi ng/Faxing/eTransmitting on: 11/15/2024 08:01 AM EDT
--- OUTSIDE RECORDS SUMMARY | 2024-11-15 08:02 | XMS_ITS | Encounter Summary ---
Author Organization [facility] Address [address] [place] [address] Care Team Providers Care Advertising Job Titles Name Role Phone Marce Alexandre APRN Unavailable [phone] Rob Lagunas MD Unavailable Alejandrina Eugene DO Unavailable [phone] Primary Care Provider [phone] Encounter Details Date Type Department Care Team (Late st Contact Info) Description 09/21/2018 Scanned Document [facility] [address] [address] Provider, MD Jason [address] [place] [address] Social History Tobacco Use Types Packs/Day Years [...] on filedocumented in this encounter Care Teams Advertising Job Titles Relationship Specialty Start Date End Date Unknown Unknow Provider Address PCP - General 08/20/21 Marce Alexandre APRN [address] [address] Nurse Practitioner Surgery, Transplant 09/26/18 Rob Lagunas MD [address] [place] [address] Referring Provider Nephrology 09/26/18 Eugene Tinoco DO [address] [place] [address] Primary Care Provider Family Medicine 09/26/18 documented as of this encounter
--- OUTSIDE RECORDS SUMMARY | 2024-11-15 08:02 | XMS_ITS | Encounter Summary ---
Author Organization [facility], Address [address] [place] [address] Phone Care Team Providers Care Cup Trimming Machine Operator Name Role Phone Nissa Mckeon DO Primary Care Pro vider Encounter Details Date Type Department Care Team ([facility] Contact Info) Description 05/23/2021 Documentation Only [facility], [address] [place] [address] Rob Lagunas MD [address] [place] [address] Social History Tobacco Use Types [...] on filedocumented in this encounter Care Teams Cup Trimming Machine Operator Relationship Specialty Start Date End Date Nissa Mckeon DO PCP - General 04/29/20 documented as of this encounter
--- OUTSIDE RECORDS SUMMARY | 2024-11-15 08:02 | XMS_ITS | Clinical Summary ---
Author Organization [facility] Address [address] [place] [address] Care Team Providers Care Machine Stone Polisher Name Role Phone Unavailable Primary Care Provider Unavailabl e Surgical History Surgery Date Site/Laterality Comments OTHER SURGICAL HISTORY PROCEDURE: AV FISTULA OR GRAFT ARTERIAL PARATHYROIDECTOMY PROCEDURE: HISTORICAL PARATHYROIDECTOMY OTHER SURGICAL HISTORY PROCEDURE: [place] [facility] THYROID LOBECTOMY UNI W/WO ISTHMUSECTOMY Medical History Medical History Date Comments HTN (hypertension) DX:HTN (hyper tension) ESRD (end stage renal diseas e) ([facility] [place], [facility] V28) DX:ESRD (end stage renal dis ease) ([facility]); COMMENT: hd at [facility] er/icu; babu Anxiety DX:Anxiety Depression DX:Depression Bipolar disorder ([facility] V2 4, [facility] V28) DX:Bipolar disorder ([facility]); C OMMENT: [facility] therapist Secondary hyperparathyroidis m ([facility] V24) DX:Secondary hyperparathyroi dism ([facility]) Asthma DX:Asthma Tobacco use DX:Tobacco use Hidradenitis suppurativa DX:Hidr adenitis suppurativa History of substance abuse ( [facility] V24, [facility] V28) DX:History of substance abus e ([facility]) GERD (gastroesophageal reflux disease) DX:GERD [...] Vaccine (1 - 2023-2 5 season) 2023 Depression Screening 04/19/2024 Influenza Vaccine (#1) 2024 Pneumococcal Vaccine: Pediat [...]
--- OUTSIDE RECORDS SUMMARY | 2024-11-15 08:02 | XMS_ITS | Clinical Summary ---
Author Organization [facility] Address [address] [place] [address] Care Team Providers Care Director Check Name Role Phone Unavailable Primary Care Provider [...] meals. 270 Cap 2 3 Active b ftjnoes-Z-mvypd acid (NEPHROCAPS) 1 mg per capsuleIndicatio ns:ESRD (end stage renal disease) on dialysis ([facility]) Take 1 Cap by mouth once daily. 30 Cap 4 3 Active loratadine (CLARITIN) 10 mg tabletIndication s:Allergic rhinitis Take 1 Tab by mouth once daily as needed for allergies. Active diphenhydrAMINE (BENADRYL) 50 mg tabletIndication s:ESRD (end stage renal disease) on dialysis ([facility]) Take 1 Tab by mouth [...] (two) times daily. 15 g Active b aqgmxiq-I-gekbd acid (RENAL CAPS) 1 mg per capsuleIndicatio ns:ESRD (end stage renal disease) on dialysis ([facility]) Take 1 Cap by mouth [...] ESRD (end stage renal disease) on dialysis ([facility]) Overview (01/03/2013): Goes [facility] 2x[facility]week, as No Resource Specialist in area will take her as patient due past poor behavior and non-compliance. Eczema ASTHMA MODERATE PERSISTENT Overview (01/02/2013): Tobacco abuse Hyperlipidemia Hidradenitis suppurativa Overview (01/02/2013): Wound care follow up Dr. Mcbride Borderline personality disorder ([facility]) Overview (01/03/2013): Non-compliant with psych f/u. GERD (gastroesophageal reflux disease) Constipation Allergic rhinitis Vulvar candidiasis Right hip pain Immunizations Immunization Administration Dates Next Due Hep B, Adult/Adol ([id number]/RECOMBIVAX-ADULT) 08/09/2008,07/19/2008,03/06/2008 PPD 07/03/2005 Social History Tobacco Use [...]
--- OUTSIDE RECORDS SUMMARY | 2024-11-15 08:02 | XMS_ITS | Clinical Summary ---
Author Organization [facility] Address [address] [address] Phone Care Team Providers Care Preschool Teacher Name Role Phone Eugene Tinoco DO Primary Care Provider [phone] Allergies Active Allergy Reactions Criticality Noted Date Comments Lisinopril 05/06/2018 LIp/Face swelling Oxycodone-Acetaminophen Itching 05/06/2018 Tramadol Itching 05/06/2018 Hydrocodone-Acetaminophen 05/06/2018 Medications albuterol 90 mcg/actuation inhaler Inhale 2 puffs into the lungs every 6 (six) hours as needed for wheezing. Active fluticasone-carlita meterol (ADVAIR DISKUS) 100-50 mcg/dose DISKUS Inhale 100 mcg/actuation of fluticasone into the lungs daily. Active pantoprazole (PROTONIX) 40 MG tablet Take 40 mg by mouth daily. Active metoprolol succinate (TOPROL-XL) 25 MG 24 hr tablet Take 25 mg by mouth daily. Active minoxidil (LONITEN) 2.5 MG tablet Take 2.5 mg by mouth daily. Active calcium acetate (PHOSLO) 667 mg (169 mg elemental) capsule Take 2,001 mg by mouth 3 (three) times a day with meals. Active sevelamer carbonate (RENVELA) 800 mg tabletIndicatio ns:3 tablets by mouth three times a day Take 800 mg by mouth 3 (three) times a day with meals. Active senna (SENOKOT) 8.6 mg tablet Take 1 tablet by mouth daily. Active cholecalciferol (VITAMIN D3) 2,000 unit tablet Take 1,000 Units by mouth daily. Active aspirin 81 mg chewable tablet Take 81 mg by mouth daily. Active calcitriol (ROCALTROL) 0.25 MCG capsule Take 0.25 mcg by mouth daily. Active oxyCODONE 15 MG immediate release tablet Take 15 mg by mouth every 4 (four) hours as needed for pain (specific location in comments). Active Active Problems Problem Noted Date Diagnosed Date Pre-transplant evaluation for end stage renal di sease 05/06/2018 Family History Medical History Relation Comments Diabetes Mother Hypertension Mother Relation Status Comments Father Mother Social History Tobacco Use Types Packs/Day Years Used Date Smoking Tobacco: Every Day Comments:1-2 ciggerettes a d ay Education Answer Date Recorded Are you interested in more education? Not on sophia e 08/14/2022 Are you concerned about learning? Not on file 08/14/2022 No 08/14/2022 No 08/14/2022 Digital Access Answer Date Recorded No 09/11/2022 No 09/11/2022 No 09/11/2022 Reliable internet access at home? Not on file 09/11/2022 Device with a working camera? Not on file Comments Unknown Sex and Gender Information Value Date Recorded Sex Assigned at Not on file Legal Sex Female 9:26 PM EDT Gender Identity Not on file Sexual Orientation Not on file Last Filed Vital Signs Vital Sign Reading Time Taken Comments Blood Pressure 125/62 06/24/2018 11:14 AM EST Pulse 80 06/24/2018 11:14 AM EST Temperature 36.6 C (97.9 F) 06/24/2018 11:14 AM EST Respiratory Rate - - Oxygen Saturation - - Inhaled Oxygen Concentration - - Weight 112.6 kg (248 lb 3.2 oz) 019 11:14 AM EST Height 167 cm (5' 5.75 ) 06/24/2018 11: 14 AM EST Body Mass Index 40.37 06/24/2018 11:14 AM EST Plan of Treatment Health Maintenance Due Date Last Done Comments LIPID PANEL 1976 DEPRESSION SCREENING 1988 SMOKING Hx and SMOKELESS TOBACCO SCREENING 1989 PAP SMEAR 1997 MAMMOGRAM 2016 COLOGUARD 2021 COLONOSCOPY 2021 COLORECTAL CANCER SCREENING 2021 FIT TEST 2021 FOBT 2021 SIGMOIDOSCOPY 2021 VIRTUAL COLONOSCOPY 2021 COVID-19 VACCINE (3 - 2023- season) 2023 06/21/2020, 05/23/2020 PNEUMOCOCCAL VACCINES (0-49 years) (3 of 3 - PCV20 or PCV21) 2026 11/29/2017, 05/31/2017, 05/20/2017, Additional history exists Adult Td,Tdap Booster 06/29/2027 06/28/2017 , 05/20/2017, 09/28/2013 HEPATITIS A VACCINES Aged Out 11/29/2017, 05/31/19 19 No longer eligible based on patient's age to complete this topic HEPATITIS C SCREENING Completed 06/24/2018 HIV ONE-TIME SCREENING (18-65 YEARS) Completed 06/24/2018 HIB VACCINES Aged Out No longer eligi ble based on patient's age to complete this topic MENINGOCOCCAL VACCINES (ACWY) Aged Out No longer eligible based on patient's age to complete this topic MENINGOCOCCAL VACCINES (B) Aged Out N o longer eligible based on patient's age to complete this topic Medical Devices Not on file Procedures Procedure Name Priority Date/Time Associated Diagnosis Comments HEPATITIS C ANTIBODY, QUALITATIVE Routine 06/24/2018 10:36 AM EST Pre-transplant evaluation for end stage renal disease from Last 3 Months or Most Recently Relevant to Health Maintenance Results * Hepatitis C antibody, qualitative (06/24/2018 10:36 AM EST) HCV ANTIBODY Negative Negative [facility] Comment:Antibodies to HCV no t detected. Does not exclude the possibility of exposure to HCV. 06/24/2018 10:3 6 AM EST 06/24/2018 12:44 PM EST us Varun Robles MD LAB BLOOD ORDERABLES Final Result [facility] [address] [place] [address] from Last 3 Months or Most Recently Relevant to Health [place] [address] [facility] [address] [place] [address] [facility] [place] [address] [facility] [address] MEDICARE PART A & B [facility] [place] [address] [facility] [place] [address] MEDICARE PART A [address] [place] [address] [facility] [address] [place] [address] [facility] [address] [place] [address] [facility] [address] [place] [address] [facility] [place] [address] [place] MEDICARE PART A & [place] [address] MEDICARE PART A & B [place] Care Teams Preschool Teacher Relationship Specialty Start Date End Date AlejandrinaEugeneDO PCP - General Family Medicine 01/31/18 Additional Source Comments The information contained in this document represents components of the legal health record. It is not the complete legal health record.[facility]
--- OUTSIDE RECORDS SUMMARY | 2024-11-15 08:02 | XMS_ITS | Clinical Summary ---
Author Organization [employer] [facility] Address [address] [place] [address] Care Team Providers Care Archivist Economic History Name Role Phone Unavailable Primary Care Provider Unavailabl e Social History Tobacco Use Types Packs/Day Years Used Date Smoking Tobacco: Never Assessed Sex and Gender Information Value Date Recorded Sex Assigned at Not on file Gender Identity Not on file Sexual Orientation Not on file Plan of Treatment Not on file
--- NOTE | 2024-11-15 08:03 | A.OFFPC_ITS ---
Vital Signs 11/15/24 08:04 Height 5 ft 6 in Weight 194 lb BMI 31.3 BP 130/80 Blood Pressure Location Lt brachial Position Sitting Pulse 79 Pulse Source Pulse Oximeter Temp 97.1 F Temp Source Temporal Artery Scan Pulse Oximetry (%) 94 Oxygen Delivery Method Room Air Intake Visit Reasons: 3mth f/u Intake Note: Patient is here to follow up on DM, HTN, Asthma, GERD. Double Needle Operator Required: No Heating And Blending Supervisor: Not Required per policy Accompanied by: Self / Same As Patient Allergies lisinopril (LISINOPRIL) Allergy (Intermediate, Verified 11/15/24 08:14) EYES SWELL SHUT, angioedema, angioedema tramadol (TRAMADOL) Allergy (Intermediate, Verified 11/15/24 08:14) HIVES piperacillin (Zosyn) Allergy (Mild, Verified 11/15/24 08:14) rash cefazolin Allergy (Unknown, Verified 11/15/24 08:14) Unknown hydrocodone (From VICODIN) Allergy (Unknown, Verified 11/15/24 08:14) UNKNOWN ibuprofen (From Motrin) Allergy (Unknown, Verified 11/15/24 08:14) Unknown shellfish derived Allergy (Unknown, Verified 11/15/24 08:14) Unknown Sulfa (Sulfonamide Antibiotics) (SULFA (SULFONAMIDE ANTIBIOTICS)) Allergy (Unknown, Verified 11/15/24 08:14) UNKNOWN vancomycin Allergy (Unknown, Verified 11/15/24 08:14) rash azithromycin Adverse Reaction (Intermediate, Verified 11/15/24 08:14) dizziness/AVERY Medication List - Last Reconciled 11/15/24 by Alexx Baum PA-C acetaminophen ER 650 mg PO Q12H 30 days albuterol sulfate 2.5 mg (3 mL) inhalation Q6H PRN 15 days albuterol sulfate 90 mcg/actuation 1 inh inhalation QID PRN 6 months amlodipine 10 mg PO DAILY 90 days blood sugar diagnostic (Repka.comTouch Verio test strips) Testing daily as needed chlorhexidine gluconate 4% (Hibiclens) topical docusate sodium (Dulcolax Stool Softener (docusate)) 100 mg PO BID 90 days ergocalciferol (vitamin D2) 1,250 mcg PO QWEEK 12 weeks estradiol 0.01%(0.1mg/gram) vaginal etonogestrel (Nexplanon) 68 mg subdermal DAILY famotidine (Pepcid) 20 mg PO BID 90 days gentamicin 0.3% 1 drp ophthalmic (eye) Q8H 5 days guaifenesin 200 mg (5 mL) PO Q4H PRN lancets (OneTouch Delica Plus Lancet) As directed mycophenolate mofetil (CellCept) 500 mg (2 x 250 mg) PO BID 90 days nebulizers (AeroEclipse II Nebulizer) As directed pantoprazole 40 mg PO DAILY 90 days sennosides (senna) 8.6 mg PO BID 90 days sodium citrate-citric acid 500-334 mg/5 mL 30 mL PO BID 30 days tacrolimus 1 mg orally; Take 2 capsules in the morning, take 2 capsules in the evening. To be taken with 5mg in the morning and 5mg in the evenings (separate prescription) for total of 7mg BID. Transplant date 10/04/2020- coverage for transplant chiller operator 90 days tacrolimus 5 mg PO Q12H 90 days tirzepatide (Mounjaro) 15 mg subcut QWEEK tirzepatide (Mounjaro) 15 mg (0.5 mL) subcut QWEEK 4 weeks Tobacco use date assessed: 11/15/24 Dental Screening Dental Screen Date: 08/01/24 HPI 3mth f/u HPI Details Patient is a 49 year female here today for follow-up visit. .? Patient has a past medical history si gnificant for pulmonary embolism on anticoagulation, GERD, Asthma, Iron def anemia,? obesity, DMII, end-stage renal disease status post kidney transplant, chronic lumbar spine pain. Concern--> The sore throat has been present for approximately four days and is associated with mucus production. The patient suspects the sore throat may be related to sleeping with a CPAP machine and air conditioning use. .. Kidney transplant recipient:? Has a history of chronic kidney disease stage 5 with status post kidney transplant in September 2020 at [facility]. The patient reports issues in maintaining her nephrology care due to an unresolved conflict at the [facility] clinic, preventing her from securing new care providers for her transplant maintenance. She has been able to establish care with new Nephrology group here in [place]. They are managing her transplant medications. Most recent renal function has been stable. .. DMII:? Patient has lost nearly 10 lb since last office visit. She plans on being more physically active. She has been watching her diet and reducing her carbohydrates. She continues on Mounjauro and has lost any significant amount of weight has better glycemic control., today's A1c of 5.6 PFSH Medical History History of pulmonary embolism Chronic kidney disease Ankylosing spondylitis of lumbar region Right lumbar radiculopathy Surgical History S/P kidney transplant Status post dialysis Hx of bilateral breast reduction surgery Family History Mother No problems noted. Father No problems noted. Brother Substance abuse Social History Household Members: None Housing: Apartment Are you a primary mall plant caretaker to a significant other at home: No Do you presently have visiting nurse or other home services: No Alcohol intake: never Patient Tobacco Use Status: Former Tobacco user Years Smoked: 15 e-Cigarette/Vaping Use: Never Used Second Hand Smoke Exposure: Yes Advance Directives Date on File: 02/26/20 service: No Current occupational status: disabled Gender identity: Female Cognitive needs: No Hearing needs: No Vision needs: Yes (Glasses) Female Reproductive History Menstrual Age of Menarche: 17 Questionnaire Thrive Questionnaire Date Thrive assessed: 08/01/24 I am a: Patient What is your living situation today?: I choose not to answer this question Within the past 12 months, did the food you bought not last and you didn't have the money to get more?: I choose not to answer this question Within the past 12 months, did you worry whether your food would run out before you got money to buy more?: I choose not to answer this question Do you have trouble paying for medicines?: I choose not to answer this question Do you have trouble getting transportation to medical appointments?: I choose not to answer this question Do you have trouble paying your heating and electricity bill?: I choose not to answer this question Do you have trouble taking care of your child, family member or friend?: I choose not to answer this question Do you have trouble with day-to-day activities such as bathing, preparing meals, shopping, managing finances, etc.?: I choose not to answer this question Are you currently unemployed and looking for a job?: I choose not to answer this question Are you interested in more education?: I choose not to answer this question Please select the resources that you would like help with: None Currently or been in a relationship where the following occur: I choose not to answer THRIVE Score: 0 VIRIDIANA-7 AMB Questionnaire VIRIDIANA-7 Date VIRIDIANA - 7 assessed: 08/01/24 Source: Developed by Drs. Han Marcelo, Halle Robles, Dexter Medrano and colleagues, with an educational tigre from [employer]. Review of Systems Const Denies headache(s) Eyes Denies loss of vision ENT Denies vertigo, Denies dizziness, Denies headache(s) and Denies sore throat Card Denies chest pain, Denies leg edema and Denies lightheadedness Resp Denies cough, Denies hemoptysis and Denies wheezing GI Denies abdominal pain, Denies melena, Denies constipation, Denies diarrhea and Denies vomiting Denies urinary frequency, Denies dysuria and Denies urinary urgency Musc Denies arthralgias, Denies joint swelling, Denies numbness and Denies tingling Neuro Denies Abnormal speech present, Denies behavioral changes, Denies vertigo, Denies dizziness, Denies headache(s), Denies loss of vision, Denies memory loss, Denies numbness and Denies tingling Psych Denies anxiety, Denies behavioral changes, Denies depression, Denies memory loss and Denies panic attacks Chris/Lymph Denies easy bleeding and Denies easy bruising Aller/Immun Denies wheezing Physical exam (Primary Care) Vital Signs: Last Vital Signs Temp 97.1 F 11/15/24 08:04 Pulse 79 11/15/24 08:04 BP 130/80 11/15/24 08:04 Pulse Ox 94 11/15/24 08:04 Oxygen Delivery Method Room Air 11/15/24 08:04 BMI result Body Mass Index 31.3 Tobacco/Smoking Status: Tobacco use Status Tobacco use date assessed 11/15/24 11/15/24 08:13 Patient Tobacco Use Status Former Tobacco user 11/15/24 08:13 e-Cigarette/Vaping Use Never Used 11/15/24 08:13 Thrive Assessment: Date of Thrive Assessment Date Thrive assessed 08/01/24 11/15/24 08:13 Currently or been in a relationship where the following occur: I choose not to answer Const General: healthy appearing, no acute distress, alert and awake Nutritional Appearance: well nourished Orientation/consciousness: oriented to person, oriented to place and oriented to time HENMT Ears: TM's normal bilaterally General nose exam: Normal nasal mucous membranes and turbinates present Eyes Conjunctivae: conjunctivae normal Sclerae: sclerae normal Pupils: Equal, round and reactive pupils present Neck Neck: Yes no lymphadenopathy and Yes no JVD Thyroid: Thyroid normal Carotids: no bruits Resp Effort & Inspection: normal respiratory effort and not tachypneic Auscultation: no crackles, no rales, no rhonchi and no wheezes Cardio Rate: regular rate Rhythm: regular rhythm Heart sounds: no murmurs and normal S1 and S2 GI Palpation (GI): Soft to palpation, nontender, no hepatomegaly and no splenomegaly Auscultation: normal bowel sounds Skin General skin exam: no rashes or lesions noted and dry skin Neuro General: oriented to person, oriented to place and oriented to time Cranial nerves: Yes Equal, round and reactive pupils present Speech: No Abnormal speech present Gait exam (Neuro): Normal gait present Motor exam (neuro): no tremor noted Extrem Right upper extremity: full ROM Left upper extremity: full ROM Right lower extremity: full ROM; no edema Left lower extremity: full ROM; no edema Psych Mental Status: mental status grossly normal Speech and movement: Normal speech and movement present Affect: normal affect Attitude: cooperative Thought process: Normal thought process present Results AMB Hemoglobin A1c AMB Hemoglobin A1c 5.6 % Last Edit by MAYO Jacobs on 11/15/24 08:1 7 Results Reviewed Results Reviewed: Laboratory Last Values Hgb A1c (Clinic) 5.6 % (4.0-6.0) 11/15/24 08:02 Coding Level of Care Code Est Pt Level 4 (19854) Diagnoses Type 2 diabetes mellitus with hyperglycemia, without long-term current use of insulin E11.65 Diabetes mellitus complication status: with hyperglycemia Diabetes mellitus skilled nursing insulin use: without highway construction inspector use ESRD (end stage renal disease) N18.6 Pulmonary embolism, other, unspecified chronicity, unspecified whether acute cor pulmonale present I26.99 Acute cor pulmonale presence: unspecified Chronicity: unspecified Pulmonary embolism type: other Class 1 obesity E66.811 Pharyngitis due to other organism J02.8 Pharyngitis/tonsillitis etiology: other specified organisms Assessment & Plan Assessment & Plan (1) DMII (diabetes mellitus, type 2): Code(s): E11.9 - Type 2 diabetes mellitus without complications Category: Medical Qualifiers: Diabetes mellitus complication status: with hyperglycemia Diabetes mellitus skilled nursing insulin use: without skilled nursing use Qualified Code(s): E11.65 - Type 2 diabetes mellitus with hyperglycemia Plan: Patient's type 2 diabetes well controlled on current antihyperglycemic medication. Today's A1c of 5.6 Goal A1c is to remain below 7.0. (2) ESRD (end stage renal disease): Code(s): N18.6 - End stage renal disease Category: Medical Plan: Patient is status post kidney transplant in 2020. As per HPI there has been some personal conflicts at the previous transplant clinic in [facility]. She has establish care at [place] [facility] whom are managing her renal transplant meds. Most recent renal function is stable. (3) Pulmonary embolism: Code(s): I26.99 - Other pulmonary embolism without acute cor pulmonale Category: Medical Qualifiers: Acute cor pulmonale presence: unspecified Chronicity: unspecified Pulmonary embolism type: other Qualified Code(s): I26.99 - Other pulmonary embolism without acute cor pulmonale Plan: Has a history of pulmonary embolism. Was previously on anticoagulation though now off of the medication. (4) Class 1 obesity: Code(s): E66.811 - Obesity, class 1 Category: Medical Plan: Patient does understand her BMI is over 30 and will continue on GLP 1 to help her lose weight. She has been trying to work on dietary modifications and being more physically active. Given her letter head justifying the medical need to be more physically active to help her overall health. (5) Pharyngitis: Code(s): J02.9 - Acute pharyngitis, unspecified Category: Medical Qualifiers: Pharyngitis/tonsillitis etiology: other specified organisms Qualified Code(s): J02.8 - Acute pharyngitis due to other specified organisms Plan: The patient presented with a sore throat persisting for four days, associated with mucus production. A throat swab was performed to rule out viral or bacterial infections, and an antibiotic was considered if necessary. Orders: Orders SARS-CoV2/FLU/RSV Today J02.9 - Acute pharyngitis, unspecified Throat Culture Today J02.9 - Acute pharyngitis, unspecified Comprehensive [place]. Panel Fast Today E11.65 - Type 2 diabetes mellitus with hyperglycemia Lipid Panel Today E11.65 - Type 2 diabetes mellitus with hyperglycemia AMB Hemoglobin A1c Today E11.65 - Type 2 diabetes mellitus with hyperglycemia Complete Blood Count no Diff Today E11.65 - Type 2 diabetes mellitus with hyperglycemia Medications: New doxycycline monohydrate 100 mg PO BID 10 caps 0RF 5 days J02.8 - Acute pharyngitis due to other specified organisms
[2024-11-15 08:04] VITALS: BP 130/80; PULSE 79; TEMP 36.2; O2SAT 94; BMI 31.3
== END 2024-11-15 08:37 | disposition home or self-care (01) ==
LOC: HO.HMCH 07:59
PROVIDERS: PCP Physician Assistant; Visit Provider Physician Assistant
DX: E11.65 Type 2 diabetes mellitus with hyperglycemia (principal); N18.6 End stage renal disease; I26.99 Other pulmonary embolism without acute cor pulmonale; E66.811 Obesity, class 1; Z68.31 Body mass index [BMI] 31.0-31.9, adult; J02.8 Acute pharyngitis due to other specified organisms

== ENCOUNTER 2024-11-18 07:14 | Outpatient (REF) | payer MEDICARE, MEDICAID, SELFPAY ==
--- OUTSIDE RECORDS SUMMARY | 2024-07-05 07:30 | XMS_ITS ---
Author Organization [facility] Address [address] [place] [address] Care Team Providers Care Polishing Machine Tender Name Role Phone Alexx Baum Primary Care Provider Unavailab Nan Roper Unavailable [phone] REASON FOR VISIT Missbooked Encounters Encounter Location Date Provider Diagnosis [facility] [address] [place] [address] 07/05/2024 Nan Phillips Plan Of Treatment No Information Progress Notes * Dara ROBLES RDOB:1975 (49 yo F)Acc No.[id number]:07/05/2024 Progress Note Patient: Dara ABDALLA Provider: Allie Phillips DPM :1975 A ge:48 Y S ex:Female Date:07/05/2024 Address:[address] [place], [place] [phone] Pcp:Alexx Baum Subjective: * Chief Complaints: * [...] Date: 07/05/2024 Generated for Printi ng/Faxing/eTransmitting on: 11/18/2024 07:16 AM EDT
--- OUTSIDE RECORDS SUMMARY | 2024-11-18 07:16 | XMS_ITS | Encounter Summary ---
Author Organization [facility], Address [address] [place] [address] Phone Care Team Providers Care Primary Teacher Name Role Phone Nissa Mckeon DO Primary Care Pro vider Encounter Details Date Type Department Care Team ([facility] Contact Info) Description 05/23/2021 Documentation Only [facility], [address] [place] [address] Rob Lagunas MD [address] [place] [address] Social History Tobacco Use Types [...] on filedocumented in this encounter Care Teams Primary Teacher Relationship Specialty Start Date End Date Nissa Mckeon DO PCP - General 04/29/20 documented as of this encounter
--- OUTSIDE RECORDS SUMMARY | 2024-11-18 07:16 | XMS_ITS | Clinical Summary ---
Author Organization [facility] Address [address] [place] [address] Care Team Providers Care Rural Electrification Engineer Name Role Phone Unavailable Primary Care Provider [...] meals. 270 Cap 2 3 Active b txyrzny-I-ibhod acid (NEPHROCAPS) 1 mg per capsuleIndicatio ns:ESRD (end stage renal disease) on dialysis ([facility]) Take 1 Cap by mouth once daily. 30 Cap 4 3 Active loratadine (CLARITIN) 10 mg tabletIndication s:Allergic rhinitis Take 1 Tab by mouth once daily as needed for allergies. Active diphenhydrAMINE (BENADRYL) 50 mg tabletIndication s:ESRD (end stage renal disease) on dialysis ([facility]) Take 1 Tab by mouth [...] (two) times daily. 15 g Active b ypbycld-D-xhtgb acid (RENAL CAPS) 1 mg per capsuleIndicatio ns:ESRD (end stage renal disease) on dialysis ([facility] & [facility]) Take 1 Cap by mouth [...] ESRD (end stage renal disease) on dialysis ([facility]) Overview (01/03/2013): Goes [facility] 2x[facility]week, as No Non Licensed Nuclear Equipment Operator in area will take her as patient due past poor behavior and non-compliance. Eczema ASTHMA MODERATE PERSISTENT Overview (01/02/2013): Tobacco abuse Hyperlipidemia Hidradenitis suppurativa Overview (01/02/2013): Wound care follow up Dr. Mcbride Borderline personality disorder ([facility]) Overview (01/03/2013): Non-compliant with psych f/u. GERD (gastroesophageal reflux disease) Constipation Allergic rhinitis Vulvar candidiasis Right hip pain Immunizations Immunization Administration Dates Next Due Hep B, Adult/Adol (QEJBAVA-P-XKEQI/RECOMBIVAX-ADULT) 08/09/2008,07/19/2008,03/06/2008 PPD 07/03/2005 Social History Tobacco Use Types Packs/Day Years Used Date Smoking Tobacco: Never Assessed Comments Unknown Sex and Gender Information Value Date Recorded Sex Assigned at Not on file Legal Sex Female 11:36 AM PDT Gender Identity Not on file Sexual Orientation Not on file Plan of Treatment Not on file Insurance [place]
--- OUTSIDE RECORDS SUMMARY | 2024-11-18 07:16 | XMS_ITS | Clinical Summary ---
Author Organization [facility] Address [address] [place] [address] Care Team Providers Care Ship Engines Operating Engineer Name Role Phone Unavailable Primary Care Provider Unavailabl e Surgical History Surgery Date Site/Laterality Comments OTHER SURGICAL HISTORY PROCEDURE: AV FISTULA OR GRAFT ARTERIAL PARATHYROIDECTOMY PROCEDURE: HISTORICAL PARATHYROIDECTOMY OTHER SURGICAL HISTORY PROCEDURE: LA PRTL THYROID LOBECTOMY UNI W/WO ISTHMUSECTOMY Medical History Medical History Date Comments HTN (hypertension) DX:HTN (hyper tension) ESRD (end stage renal diseas e) ([facility] V24, [facility] V28) DX:ESRD (end stage renal dis ease) ([facility]); COMMENT: hd at [facility] er/icu; babu Anxiety DX:Anxiety Depression DX:Depression Bipolar disorder ([facility] V2 4, [facility] V28) DX:Bipolar disorder ([facility]); C OMMENT: [facility] therapist Secondary hyperparathyroidis m ([facility] V24) DX:Secondary hyperparathyroi dism ([facility]) Asthma DX:Asthma Tobacco use DX:Tobacco use Hidradenitis suppurativa DX:Hidr adenitis suppurativa History of substance abuse ( [facility] V24, [facility] V28) DX:History of substance abus e ([facility]) GERD (gastroesophageal reflux disease) DX:GERD (gastroesophageal [...]
--- OUTSIDE RECORDS SUMMARY | 2024-11-18 07:16 | XMS_ITS | Clinical Summary ---
Author Organization [facility] Address [address] [address] Phone Care Team Providers Care Third Hand Name Role Phone Eugene Tinoco DO Primary Care Provider [phone] Allergies Active Allergy Reactions Criticality Noted Date [...] 10:36 AM EST) HCV ANTIBODY Negative Negative [facility] Comment:Antibodies to HCV no t detected. Does not exclude the possibility of exposure to HCV. 06/24/2018 10:3 6 AM EST 06/24/2018 12:44 PM EST us Varun Robles MD LAB BLOOD ORDERABLES Final Result [facility] [address] [place] [address] from Last 3 Months or Most Recently Relevant to Health [place] [address] [facility] MEDICARE PART A [address] [place] [address] [facility] MEDICARE PART A & B [facility] [place] [address] [facility] [place] [address] MEDICARE PART A & B [facility] [place] [address] [facility] [place] [address] MEDICARE PART A [place] [id number] [facility] MEDICARE PART A [address] [place] [id number] [facility] MEDICARE PART A [address] [place] [id number] [facility] MEDICARE PART A [address] [place] [address] [facility] MEDICARE PART A & B [facility] [place] [address] [place] MEDICARE PART A & [place] [address] MEDICARE PART A & B [place] Care Teams Third Hand Relationship Specialty Start Date End Date AlejandrinaEugeneDO PCP - General Family Medicine 01/31/18 Additional Source Comments The information contained in this document represents components of the legal health record. It is not the complete legal health record.[facility]
--- OUTSIDE RECORDS SUMMARY | 2024-11-18 07:16 | XMS_ITS | Encounter Summary ---
Author Organization [facility] Address [address] [place] [address] Care Team Providers Care Drop Machine Operator Name Role Phone Marce Alexandre APRN Unavailable Rob Lagunas MD Unavailable [phone] Alejandrina Eugene DO Unavailable [phone] Unknown Primary Care Provider [phone] Encounter Details Date Type Department Care Team (Late st Contact Info) Description 09/21/2018 Scanned Document [facility] [address] [address] Provider, MD Jason [address] [place] [address] Social History Tobacco Use Types Packs/Day Years [...] on filedocumented in this encounter Care Teams Drop Machine Operator Relationship Specialty Start Date End Date Unknown Unknow Provider Address PCP - General 08/20/21 Marce Alexandre APRN [address] [address] Nurse Practitioner Surgery, Transplant 09/26/18 Rob Lagunas MD [address] [place] [address] Referring Provider Nephrology 09/26/18 Eugene Tinoco DO [address] [place] [id number] Primary Care Provider Family Medicine 09/26/18 documented as of this encounter
--- OUTSIDE RECORDS SUMMARY | 2024-11-18 07:16 | XMS_ITS | Clinical Summary ---
Author Organization [facility] Address [address] [place] [address] Care Team Providers Care Feather Shaper Name Role Phone Unavailable Primary Care Provider Unavailabl e Social History Tobacco Use Types Packs/Day Years Used Date Smoking Tobacco: Never Assessed Sex and Gender Information Value Date Recorded Sex Assigned at Not on file Gender Identity Not on file Sexual Orientation Not on file Plan of Treatment Not on file
[2024-11-18 08:18] LABS: Appearance Urine Clear; Glucose Urine UA Negative (Negative); PH 6.5 (5.0-9.0); Specific Gravity - Urine 1.015 (1.005-1.025); UMIC TRIGGER UA YES
[2024-11-18 08:37] LABS: Hematocrit 41.9 % (37.0-47.0); Hemoglobin 13.7 g/dl (12.0-16.0); Mean Corpuscular HGB Conc 32.7 g/dl (31.0-35.0); Mean Corpuscular Hemoglobin 27.5 pg (27.0-33.0); Mean Corpuscular Volume 84.0 fL (80.0-98.0); NRBC Abs Auto 0.000 X10*3/uL (0.0-0.012); NRBC Pct Auto 0.0 /100WBC (0.0-0.2); Platelet Count 288 X10*3/uL (160-400); Red Blood Count 4.99 X10*6/uL (4.20-5.50); White Blood Count 4.5 X10*3/uL (4.8-10.8)
[2024-11-18 08:46] LABS: Microalbum/Creatinine Ratio Ur 55.2 ug/mg cr (<30); Total Protein Urine Random 20 mg/dL (<12)
[2024-11-18 09:02] LABS: Alanine Aminotransferase 32 U/L (0-31); Albumin Level 4.2 g/dL (3.5-5.0); Alkaline Phosphatase 98 U/L (39-117); Anion Gap 14 (12-20); Aspartate Amino Transferase 32 U/L (5-31); Blood Urea Nitrogen 23 mg/dL (9-16); Calcium 9.3 mg/dL (8.4-10.2); Carbon Dioxide 21 mmol/L (22-29); Chloride 109 mmol/L (96-108); Cholesterol 130 mg/dL (<200); Estimated Glomerular Filt Rate 41; HDL Cholesterol 37 mg/dL (>40); Potassium 3.8 mmol/L (3.3-5.1); Sodium 140 mmol/L (135-145); Total Protein 8.7 g/dL (6.5-8.0); Triglycerides 69 mg/dL (<150)
[2024-11-20 12:54] LABS: Tacrolimus Prograf 10.4 mcg/L
== END 2024-11-18 07:15 | disposition home or self-care (01) ==
LOC: HO.LAB 07:14
PROVIDERS: PCP Physician Assistant; Visit Provider Internal Medicine Critical Care Medicine
DX: I10 Essential (primary) hypertension (principal); E11.65 Type 2 diabetes mellitus with hyperglycemia; Z51.81 Encounter for therapeutic drug level monitoring; Z79.621 Long term (current) use of calcineurin inhibitor; Z94.0 Kidney transplant status
CPT/HCPCS: 36415; 80048; 80053; 80061; 80197; 81001; 81003; 82043; 82570; 84156; 85027

== ENCOUNTER 2024-11-22 11:13 | Outpatient (AMB) | payer MEDICARE, MEDICAID, SELFPAY ==
--- OUTSIDE RECORDS SUMMARY | 2024-07-05 07:30 | XMS_ITS ---
Author Organization [facility] Address [address] [place] [address] Care Team Providers Care Data Processing Manager Name Role Phone Alexx Baum Primary Care Provider Unavailab Nan Roper Unavailable [phone] REASON FOR VISIT Missbooked Encounters Encounter Location Date Provider Diagnosis [facility] [address] [place] [address] 07/05/2024 Nan Phillips Plan Of Treatment No Information Progress Notes * Dara ROBLES RDOB:1975 (49 yo F)Acc No.[id number]:07/05/2024 Progress Note Patient: Dara ABDALLA Provider: Allie Phillips DPM :1975 A ge:48 Y S ex:Female Date:07/05/2024 Address:[address] [place], [place] [phone] Pcp:Alexx Baum Subjective: * Chief Complaints: * [...] Date: 07/05/2024 Generated for Printi ng/Faxing/eTransmitting on: 11/22/2024 12:01 PM EDT
--- NOTE | 2024-11-22 11:15 | HO.NEPHOV_ITS ---
Vital Signs 11/22/24 11:17 Height 5 ft 6 in Weight 197 lb BMI 31.8 BP 110/80 Blood Pressure Location Rt brachial Position Sitting Intake Visit Reasons: Per Dr Braxton Anthropologist Required: No Accompanied by: Other Relationship Allergies lisinopril (LISINOPRIL) Allergy (Intermediate, Verified 11/22/24 11:17) EYES SWELL SHUT, angioedema, angioedema tramadol (TRAMADOL) Allergy (Intermediate, Verified 11/22/24 11:17) HIVES piperacillin (Zosyn) Allergy (Mild, Verified 11/22/24 11:17) rash cefazolin Allergy (Unknown, Verified 11/22/24 11:17) Unknown hydrocodone (From VICODIN) Allergy (Unknown, Verified 11/22/24 11:17) UNKNOWN ibuprofen (From Motrin) Allergy (Unknown, Verified 11/22/24 11:17) Unknown shellfish derived Allergy (Unknown, Verified 11/22/24 11:17) Unknown Sulfa (Sulfonamide Antibiotics) (SULFA (SULFONAMIDE ANTIBIOTICS)) Allergy (Unknown, Verified 11/22/24 11:17) UNKNOWN vancomycin Allergy (Unknown, Verified 11/22/24 11:17) rash azithromycin Adverse Reaction (Intermediate, Verified 11/22/24 11:17) dizziness/AVERY HPI Comments Details: 48-year-old lady with past medical history of ESRD secondary to hypertension related atherosclerotic vascular disease who was on dialysis for over 12 years is status post living donor/ disease donor kidney transplant in 09/2020 received donor kidney with KDPI 49% her pre transplant cPRA was 0, EPTS was 22. Donor CMV: + Recipient CMV: + (low risk). She last saw a transplant sap business intelligence consultant in [place] in Jan 2024, and was discharged from service. September 2024: tacrolimus levels increased to 9.3 and creatinine increased from 1.28 to 1.61. October 2024: after decreasing the tacrolimus levels to 7mg BID, levels down to 7.4 and creatinine improved to 1.20. No new complaints this visits except for has vaginal candidiasis. Made her aware that thiazoles can increase her tacrolimus levels, she states she is only using mucosal and local agents and not taking anything oral. Rest she is doing well, enjoying fishing and going to [employer]. November 2024: She was treated with Metrogyl 500mg BID for 7 days and finished on 11/15 and labs on 11/18/2024 showed creatinine increasing to 1.38 and tacrolimus levels 10.4. [facility] Medical History History of pulmonary embolism Chronic kidney disease Ankylosing spondylitis of lumbar region Right lumbar radiculopathy Surgical History S/P kidney transplant Status post dialysis Hx of bilateral breast reduction surgery Family History Mother No problems noted. Father No problems noted. Brother Substance abuse Social History Household Members: None Housing: Apartment Are you a primary long term care pharmacist to a significant other at home: No Do you presently have visiting nurse or other home services: No Alcohol intake: never Patient Tobacco Use Status: Former Tobacco user Years Smoked: 15 e-Cigarette/Vaping Use: Never Used Second Hand Smoke Exposure: Yes Advance Directives Date on File: 02/26/20 service: No Current occupational status: disabled Gender identity: Female Cognitive needs: No Hearing needs: No Vision needs: Yes (Glasses) Female Reproductive History Menstrual Age of Menarche: 17 Review of Systems Const Details: Const : no body aches, no chills, no excessive sweating and no fatigue Eyes: no blurry vision and no change in vision ENT: no bleeding gums and no change in voice, no dizziness Card: no chest pain, no shortness of breath, no orthopnea, no PND Resp: no cough, no excessive phlegm production, no SOB GI: no abdominal pain and no nausea, no vomiting : no hematuria, no urinary frequency and no difficulty voiding Musc: no abnormal gait, no bone pain Neuro: no abnormal movements, no weakness and no behavioral changes Psych: no behavioral changes and no change in appetite Endo: no change in body appearance, no cold intolerance Physical Exam Vital Signs: Last Vital Signs BP 110/80 11/22/24 11:17 BMI result Body Mass Index 31.8 General: not in any acute distress, comfortable, sitting on the chair Nutritional Appearance: well nourished and overweight Eyes: normal position, no icterus Neck: No lymphadenopathy, no thyromegaly Resp: bilateral air entry equal, no added sounds present Cardio: normal S1, S2 heard, no murmur heard, no edema GI: soft, nontender, no guarding, no hepatosplenomegaly : bladder normal to inspection, bladder normal to palpation, no renal angle tenderness, no bruit on the transplant kidney Skin: no rashes or lesions noted and elasticity normal Neuro: oriented to person, oriented to place, oriented to time and moves all extremities Results Reviewed Nephrology Results: Hgb, (12.0-16.0) 13.7 g/dl 11/18/24 WBC, (4.8-10.8) 4.5 X10*3/uL L 11/18/24 Plt Count, (160-400) 288 X10*3/uL 11/18/24 Sodium, (135-145) 140 mmol/L 11/18/24 Potassium, (3.3-5.1) 3.8 mmol/L 11/18/24 Chloride, (96-108) 109 mmol/L H 11/18/24 Carbon Dioxide, (22-29) 21 mmol/L L 11/18/24 BUN, (9-16) 23 mg/dL H 11/18/24 Creatinine, (0.5-1.4) 1.38 mg/dL 11/18/24 Calcium, (8.4-10.2) 9.3 mg/dL 11/18/24 Urine Protein, (Neg-Trace) Trace mg/dL 11/18/24 Urine Creatinine 95.87 mg/dL 11/18/24 Assessment & Plan Assessment & Plan (1) ESRD (end stage renal disease): Code(s): N18.6 - End stage renal disease Category: Medical (2) S/P kidney transplant: Comment: post op complication, clots removed kidney surface Code(s): Z94.0 - Kidney transplant status Category: Surgical (3) DMII (diabetes mellitus, type 2): Code(s): E11.9 - Type 2 diabetes mellitus without complications Category: Medical Qualifiers: Diabetes mellitus skilled nursing insulin use: without middle or intermediate school principal use Diabetes mellitus complication status: with hyperglycemia Qualified Code(s): E11.65 - Type 2 diabetes mellitus with hyperglycemia Plan 54 F who is s/p living donor/ disease donor kidney transplant in 09/2020 received donor kidney with KDPI 49% , her pre transplant cPRA was 0, EPTS was 22 . Donor CMV: + Recipient CMV: + (low risk) Primary disease: hypertensive atherosclerotic vascular disease Graft function: stable Creatinine: 1.28 increased to 1.61 when the tacrolimus levels increased to 9.3, is down to 1.20 after tacrolimus decreased to 7.4 and again increased to 1.38 with tac levels raising to 10.2. we will repeat BMP and tacrolimus levels and will adjust accordingly Urinalysis showed: 1+ protein will quantify with UACR/ UPCR: 50.2 and 198 Immunosuppression: Patient is currently on- tacrolimus 7mg AM BID , tac level 10.2 after taking Metrogyl on 11/18/2024 (tacrolimus goal 4-8); will check every 3 months. Will recheck levels tomorrow and adjust dose accordingly. CellCept: 500mg BID taken off prednisone 5mg since due to weight gain. Infections: post transplant needed wound vac for 2 months, none since 2021. hepatitis panel, HIV negative in 06/2024. Prophylaxis: BK/CMV negative in 10/11; monitor every 3-6 months. Vaccinations: Pneumococcal, Shingrix, Hepatitis B shot, COVID 19- received all of them normal anion gap metabolic acidosis: bicarb 21, possibly due to tacrolimus improved after bicitra, she doesnt like the taste so advised her she can substitute with fresh squeezed lemonade. Hypertension:118/70 today Blood pressure well-controlled Continue amlodipine 10mg. lipid panel normal in 10/11 HbA1c 5.6 on 11/05/2024, on Monjauro. Reinforced the importance of medication adherence, infection precautions and hand hygiene. Reviewed signs of rejection/infection Advised to avoid NSAIDs, monitor blood pressure and weight closely. We will repeat labs tomorrow in the morning and we will give her a call. Orders: Orders Tacrolimus Prograf Today E11.65 - Type 2 diabetes mellitus with hyperglycemia, N18.6 - End stage renal disease, Z94.0 - Kidney transplant status UA and rflx microscopic Today E11.65 - Type 2 diabetes mellitus with hyperglycemia, N18.6 - End stage renal disease, Z94.0 - Kidney transplant status Basic Metabolic Panel Today E11.65 - Type 2 diabetes mellitus with hyperglycemia, N18.6 - End stage renal disease, Z94.0 - Kidney transplant status Microalbumin, Random (w Creat) Today E11.65 - Type 2 diabetes mellitus with hyperglycemia, N18.6 - End stage renal disease, Z94.0 - Kidney transplant status Coding Level of Care Code Est Pt Level 4 (40967) Diagnoses ESRD (end stage renal disease) N18.6 S/P kidney transplant Z94.0 Type 2 diabetes mellitus with hyperglycemia, without long-term current use of insulin E11.65 Diabetes mellitus skilled nursing insulin use: without middle or intermediate school principal use Diabetes mellitus complication status: with hyperglycemia
[2024-11-22 11:17] VITALS: BP 110/80; BMI 31.8
--- OUTSIDE RECORDS SUMMARY | 2024-11-22 12:01 | XMS_ITS | Clinical Summary ---
Author Organization [facility] Address [address] [place] [address] Care Team Providers Care Gas Manager Name Role Phone Unavailable Primary Care Provider [...] meals. 270 Cap 2 3 Active b higauxe-W-wyeou acid (NEPHROCAPS) 1 mg per capsuleIndicatio ns:ESRD (end stage renal disease) on dialysis ([facility]) Take 1 Cap by mouth once daily. 30 Cap 4 3 Active loratadine (CLARITIN) 10 mg tabletIndication s:Allergic rhinitis Take 1 Tab by mouth once daily as needed for allergies. Active diphenhydrAMINE (BENADRYL) 50 mg tabletIndication s:ESRD (end stage renal disease) on dialysis ([facility]) Take 1 Tab by mouth [...] (two) times daily. 15 g Active b awoyrcp-Q-kcvnp acid (RENAL CAPS) 1 mg per capsuleIndicatio ns:ESRD (end stage renal disease) on dialysis ([facility]) Take 1 Cap by mouth [...] ESRD (end stage renal disease) on dialysis ([facility]) Overview (01/03/2013): Goes [facility] 2x[facility], as No Wireless Construction Manager in area will take her as patient due past poor behavior and non-compliance. Eczema ASTHMA MODERATE PERSISTENT Overview (01/02/2013): Tobacco abuse Hyperlipidemia Hidradenitis suppurativa Overview (01/02/2013): Wound care follow up Dr. Mcbride Borderline personality disorder ([facility]) Overview (01/03/2013): Non-compliant with psych f/u. GERD (gastroesophageal reflux disease) Constipation Allergic rhinitis Vulvar candidiasis Right hip pain Immunizations Immunization Administration Dates Next Due Hep B, Adult/Adol (BQDJPTL-S-PJYJC/RECOMBIVAX-ADULT) 08/09/2008,07/19/2008,03/06/2008 PPD 07/03/2005 Social History Tobacco Use Types Packs/Day Years Used Date Smoking Tobacco: Never Assessed Comments Unknown Sex and Gender Information Value Date Recorded Sex Assigned at Not on file Legal Sex Female 11:36 AM PDT Gender Identity Not on file Sexual Orientation Not on file Plan of Treatment Not on file Insurance [place]
--- OUTSIDE RECORDS SUMMARY | 2024-11-22 12:01 | XMS_ITS | Clinical Summary ---
Author Organization [facility] Address [address] [place] [address] Care Team Providers Care Ceramic Tile Installer Name Role Phone Unavailable Primary Care Provider Unavailabl e Social History Tobacco Use Types Packs/Day Years Used Date Smoking Tobacco: Never Assessed Sex and Gender Information Value Date Recorded Sex Assigned at Not on file Gender Identity Not on file Sexual Orientation Not on file Plan of Treatment Not on file
--- OUTSIDE RECORDS SUMMARY | 2024-11-22 12:01 | XMS_ITS | Encounter Summary ---
Author Organization [facility], Address [address] [place] [address] Phone Care Team Providers Care Litigation Support Analyst Name Role Phone Nissa Mckeon DO Primary Care Pro vider Encounter Details Date Type Department Care Team ([facility] Contact Info) Description 05/23/2021 Documentation Only [facility], [address] [place] [address] Rob Lagunas MD [address] [place] [place] [address] Social History Tobacco Use Types [...] on filedocumented in this encounter Care Teams Litigation Support Analyst Relationship Specialty Start Date End Date Nissa Mckeon DO PCP - General 04/29/20 documented as of this encounter
--- OUTSIDE RECORDS SUMMARY | 2024-11-22 12:01 | XMS_ITS | Encounter Summary ---
Author Organization [facility] Address [address] [place] [address] Care Team Providers Care Round Boner Name Role Phone Marce Alexandre APRN Unavailable [phone] Rob Lagunas MD Unavailable Alejandrina Eugene DO Unavailable [phone] Unknown Primary Care Provider [phone] Encounter Details Date Type Department Care Team (Late st Contact Info) Description 09/21/2018 Scanned Document [facility] [address] [address] Provider, MD Jason [address] [place] [address] Social History Tobacco Use Types Packs/Day Years [...] on filedocumented in this encounter Care Teams Round Boner Relationship Specialty Start Date End Date Unknown Unknow Provider Address PCP - General 08/20/21 Marce Alexandre APRN [address] [address] Nurse Practitioner Surgery, Transplant 09/26/18 Rob Lagunas MD [address] [place] [address] Referring Provider Nephrology 09/26/18 Eugene Tinoco DO [address] [place] [id number] Primary Care Provider Family Medicine 09/26/18 documented as of this encounter
--- OUTSIDE RECORDS SUMMARY | 2024-11-22 12:01 | XMS_ITS | Clinical Summary ---
Author Organization [facility] Address [address] [place] [address] Care Team Providers Care Crystal Cutter Name Role Phone Unavailable Primary Care Provider Unavailabl e Surgical History Surgery Date Site/Laterality Comments OTHER SURGICAL HISTORY PROCEDURE: AV FISTULA OR GRAFT ARTERIAL PARATHYROIDECTOMY PROCEDURE: HISTORICAL PARATHYROIDECTOMY OTHER SURGICAL HISTORY PROCEDURE: CO PRTL THYROID LOBECTOMY UNI W/WO ISTHMUSECTOMY Medical History Medical History Date Comments HTN (hypertension) DX:HTN (hyper tension) ESRD (end stage renal diseas e) ([facility]) DX:ESRD (end stage renal dis ease) ([facility]); COMMENT: hd at [facility] er/icu; babu Anxiety DX:Anxiety Depression DX:Depression Bipolar disorder ([facility] 4, [facility]28) DX:Bipolar disorder ([facility]); C OMMENT: [facility] therapist Secondary hyperparathyroidis m ([facility]) DX:Secondary hyperparathyroi dism ([facility]) Asthma DX:Asthma Tobacco use DX:Tobacco use Hidradenitis suppurativa DX:Hidr adenitis suppurativa History of substance abuse ( [facility], [facility]) DX:History of substance abus e ([facility]) GERD (gastroesophageal reflux disease) DX:GERD (gastroesophageal [...]
--- OUTSIDE RECORDS SUMMARY | 2024-11-22 12:01 | XMS_ITS | Clinical Summary ---
Author Organization [facility] Address [address] [address] Phone Care Team Providers Care Supervisor Tellers Name Role Phone Eugene Tinoco DO Primary Care Provider [phone] Allergies Active Allergy Reactions Criticality Noted Date [...] 10:36 AM EST) HCV ANTIBODY Negative Negative [facility] Comment:Antibodies to HCV no t detected. Does not exclude the possibility of exposure to HCV. 06/24/2018 10:3 6 AM EST 06/24/2018 12:44 PM EST us Varun Robles MD LAB BLOOD ORDERABLES Final Result [facility] [address] [place] [address] from Last 3 Months or Most Recently Relevant to Health [place] [id number] [facility] [address] [place] [id number] [facility] PART A & B [facility] [place] [address] [facility] [place] [address] MEDICARE PART A & B [facility] [place] [id number] [facility] [place] [place] [address] [address] [place] [id number] [facility] PART A [address] [place] [id number] [facility] PART A [address] [place] [id number] [facility] PART A [address] [place] [address] [facility] PART A & B [facility] [place] [address] [place] MEDICARE PART A & [place] [address] MEDICARE PART A & B [place] Care Teams Supervisor Tellers Relationship Specialty Start Date End Date AlejandrinaEugeneDO PCP - General Family Medicine 01/31/18 Additional Source Comments The information contained in this document represents components of the legal health record. It is not the complete legal health record.[facility]
== END 2024-11-22 11:51 | disposition home or self-care (01) ==
PROVIDERS: PCP Physician Assistant; Visit Provider Internal Medicine Critical Care Medicine
DX: N18.6 End stage renal disease (principal); Z94.0 Kidney transplant status; E11.65 Type 2 diabetes mellitus with hyperglycemia
CPT/HCPCS: 99214

== ENCOUNTER → 2024-11-22 11:13 | Outpatient (BNVA) | payer MEDICARE, MEDICAID, SELFPAY | PROVIDERS: PCP Physician Assistant; Visit Provider Internal Medicine Critical Care Medicine | DX: E11.22 Type 2 diabetes mellitus with diabetic chronic kidney disease (principal); N18.6 End stage renal disease; Z94.0 Kidney transplant status; Z79.899 Other long term (current) drug therapy | CPT/HCPCS: 99212 ==

== ENCOUNTER 2024-11-23 06:19 | Outpatient (REF) | payer MEDICARE, MEDICAID, SELFPAY ==
--- OUTSIDE RECORDS SUMMARY | 2024-07-05 07:30 | XMS_ITS ---
Author Organization [facility] Address [address] [place] [address] Care Team Providers Care Hydraulic Rock Drill Operator Name Role Phone Alexx Baum Primary Care Provider Unavailab Nan Roper Unavailable [phone] REASON FOR VISIT Missbooked Encounters Encounter Location Date Provider Diagnosis [facility] [address] [place] [address] 07/05/2024 Nan Phillips Plan Of Treatment No Information Progress Notes * Dara ROBLES RDOB:1975 (49 yo F)Acc No.[id number]:07/05/2024 Progress Note Patient: Dara ABDALLA Provider: Allie Phillips DPM :1975 A ge:48 Y S ex:Female Date:07/05/2024 Address:[address] [place], [place] [phone] Pcp:Alexx Baum Subjective: * Chief Complaints: * [...] Date: 07/05/2024 Generated for Printi ng/Faxing/eTransmitting on: 11/23/2024 06:22 AM EDT
--- OUTSIDE RECORDS SUMMARY | 2024-11-23 06:23 | XMS_ITS | Clinical Summary ---
Author Organization [facility] Address [address] [address] Phone Care Team Providers Care Mobile Heavy Equipment Operator Name Role Phone Eugene Tinoco DO Primary Care Provider [phone] Allergies Active Allergy Reactions Criticality Noted Date [...] 10:36 AM EST) HCV ANTIBODY Negative Negative [facility] Comment:Antibodies to HCV no t detected. Does not exclude the possibility of exposure to HCV. 06/24/2018 10:3 6 AM EST 06/24/2018 12:44 PM EST us Varun Robles MD LAB BLOOD ORDERABLES Final Result [facility] [address] [place] [address] from Last 3 Months or Most Recently Relevant to Health [place] [id number] [facility] PART A [address] [place] [address] [facility] PART A & B [facility] [address] [facility] [address] MEDICARE PART A & B [facility] [id number] [facility] [place] [address] MEDICARE PART A [address] [place] [id number] [facility] MEDICARE PART A [address] [place] [address] [facility] MEDICARE PART A & [place] [address] [facility] MEDICARE PART A & [place] [address] [facility] MEDICARE PART A & B [facility] [place] [address] [place] MEDICARE PART A & [place] [id number] MEDICARE PART A & B [place] Care Teams Mobile Heavy Equipment Operator Relationship Specialty Start Date End Date AlejandrinaEugeneDO PCP - General Family Medicine 01/31/18 Additional Source Comments The information contained in this document represents components of the legal health record. It is not the complete legal health record.[facility]
--- OUTSIDE RECORDS SUMMARY | 2024-11-23 06:23 | XMS_ITS | Clinical Summary ---
Author Organization [employer] [facility] Address [address] [place] [address] Care Team Providers Care Instrumentation Engineer Name Role Phone Unavailable Primary Care Provider Unavailabl e Social History Tobacco Use Types Packs/Day Years Used Date Smoking Tobacco: Never Assessed Sex and Gender Information Value Date Recorded Sex Assigned at Not on file Gender Identity Not on file Sexual Orientation Not on file Plan of Treatment Not on file
--- OUTSIDE RECORDS SUMMARY | 2024-11-23 06:23 | XMS_ITS | Encounter Summary ---
Author Organization [facility] Address [address] [place] [address] Care Team Providers Care Last Ironer Name Role Phone Marce Alexandre APRN Unavailable Rob Lagunas MD Unavailable Alejandrina Eugene DO Unavailable [phone] Unknown Primary Care Provider [phone] Encounter Details Date Type Department Care Team (Late st Contact Info) Description 09/21/2018 Scanned Document [facility] [address] [address] Provider, MD Jason [address] [place] [address] Social History Tobacco Use Types Packs/Day Years [...] on filedocumented in this encounter Care Teams Last Ironer Relationship Specialty Start Date End Date Unknown Unknow Provider Address PCP - General 08/20/21 Marce Alexandre APRN [address] [address] Nurse Practitioner Surgery, Transplant 09/26/18 Rob Lagunas MD [address] [place] [address] Referring Provider Nephrology 09/26/18 Eugene Tinoco DO [address] [place] [address] Primary Care Provider Family Medicine 09/26/18 documented as of this encounter
--- OUTSIDE RECORDS SUMMARY | 2024-11-23 06:23 | XMS_ITS | Encounter Summary ---
Author Organization [facility], Address [address] [place] [address] Phone Care Team Providers Care Apartment Maintenance Technician Name Role Phone Nissa Mckeon DO Primary Care Pro vider Encounter Details Date Type Department Care Team ([facility] Contact Info) Description 05/23/2021 Documentation Only [facility], [address] [place] [address] Rob Lagunas MD [address] [place] [address] Social History Tobacco Use Types [...] on filedocumented in this encounter Care Teams Apartment Maintenance Technician Relationship Specialty Start Date End Date Nissa Mckeon DO PCP - General 04/29/20 documented as of this encounter
--- OUTSIDE RECORDS SUMMARY | 2024-11-23 06:23 | XMS_ITS | Clinical Summary ---
Author Organization [facility] Address [address] [place] [address] Care Team Providers Care Industrial Chemicals Supervisor Name Role Phone Unavailable Primary Care Provider [...] meals. 270 Cap 2 3 Active b ihawawi-K-hqxiv acid (NEPHROCAPS) 1 mg per capsuleIndicatio ns:ESRD (end stage renal disease) on dialysis ([facility]) Take 1 Cap by mouth once daily. 30 Cap 4 3 Active loratadine (CLARITIN) 10 mg tabletIndication s:Allergic rhinitis Take 1 Tab by mouth once daily as needed for allergies. Active diphenhydrAMINE (BENADRYL) 50 mg tabletIndication s:ESRD (end stage renal disease) on dialysis ([facility]) Take 1 Tab by mouth [...] (two) times daily. 15 g Active b vfqqmkg-Q-uhnks acid (RENAL CAPS) 1 mg per capsuleIndicatio ns:ESRD (end stage renal disease) on dialysis ([facility]) Take 1 Cap by mouth [...] ESRD (end stage renal disease) on dialysis ([facility]) Overview (01/03/2013): Goes [facility] 2x/week, as No Stone Layer in area will take her as patient due past poor behavior and non-compliance. Eczema ASTHMA MODERATE PERSISTENT Overview (01/02/2013): Tobacco abuse Hyperlipidemia Hidradenitis suppurativa Overview (01/02/2013): Wound care follow up Dr. Mcbride Borderline personality disorder ([facility]) Overview (01/03/2013): Non-compliant with psych f/u. GERD (gastroesophageal reflux disease) Constipation Allergic rhinitis Vulvar candidiasis Right hip pain Immunizations Immunization Administration Dates Next Due Hep B, Adult/Adol (DFETLRW-L-ITAUP/RECOMBIVAX-ADULT) 08/09/2008,07/19/2008,03/06/2008 PPD 07/03/2005 Social History Tobacco Use [...]
--- OUTSIDE RECORDS SUMMARY | 2024-11-23 06:23 | XMS_ITS | Clinical Summary ---
Author Organization [facility] Address [address] [place] [address] Care Team Providers Care Final Finisher Name Role Phone Unavailable Primary Care Provider Unavailabl e Surgical History Surgery Date Site/Laterality Comments OTHER SURGICAL HISTORY PROCEDURE: AV FISTULA OR GRAFT ARTERIAL PARATHYROIDECTOMY PROCEDURE: HISTORICAL PARATHYROIDECTOMY OTHER SURGICAL HISTORY PROCEDURE: [place] PRTL THYROID LOBECTOMY UNI W/WO ISTHMUSECTOMY Medical History Medical History Date Comments HTN (hypertension) DX:HTN (hyper tension) ESRD (end stage renal diseas e) [place] [place] [facility] [place] DX:ESRD (end stage renal dis ease) ([facility]); COMMENT: hd at [facility] er/icu; babu Anxiety DX:Anxiety Depression DX:Depression Bipolar disorder ([facility] [place], [facility] DX:Bipolar disorder ([facility]); C OMMENT: [facility] therapist Secondary hyperparathyroidis m ([facility] [place] DX:Secondary hyperparathyroi dism ([facility]) Asthma DX:Asthma Tobacco use DX:Tobacco use Hidradenitis suppurativa DX:Hidr adenitis suppurativa History of substance abuse ( [facility] [place] [facility] [place] DX:History of substance abus e ([facility]) GERD (gastroesophageal reflux disease) DX:GERD (gastroesophageal reflux [...]
[2024-11-23 10:24] LABS: Appearance Urine Clear; Glucose Urine UA Negative (Negative); PH 6.5 (5.0-9.0); Specific Gravity - Urine 1.015 (1.005-1.025); UMIC TRIGGER UA YES
[2024-11-23 10:47] LABS: Anion Gap 13 (12-20); Blood Urea Nitrogen 18 mg/dL (9-16); Calcium 9.4 mg/dL (8.4-10.2); Carbon Dioxide 20 mmol/L (22-29); Chloride 110 mmol/L (96-108); Estimated Glomerular Filt Rate 46; Potassium 3.9 mmol/L (3.3-5.1); Sodium 139 mmol/L (135-145)
[2024-11-23 11:08] LABS: Microalbum/Creatinine Ratio Ur 67.9 ug/mg cr (<30)
[2024-11-24 10:22] LABS: Tacrolimus Prograf 10.3 mcg/L
== END 2024-11-23 06:20 | disposition home or self-care (01) ==
LOC: HO.HMGCLDS 06:19
PROVIDERS: PCP Physician Assistant; Visit Provider Internal Medicine Critical Care Medicine
DX: Z51.81 Encounter for therapeutic drug level monitoring (principal); E11.65 Type 2 diabetes mellitus with hyperglycemia; E11.22 Type 2 diabetes mellitus with diabetic chronic kidney disease; N18.6 End stage renal disease; Z94.0 Kidney transplant status
CPT/HCPCS: 36415; 80048; 80197; 81001; 82043; 82570

== ENCOUNTER 2024-12-04 06:05 | Outpatient (REF) | payer MEDICARE, MEDICAID, SELFPAY ==
--- OUTSIDE RECORDS SUMMARY | 2024-12-04 06:08 | XMS_ITS | Encounter Summary ---
Author Organization [facility] Address [address] [place] [address] Care Team Providers Care Dress Fitter Name Role Phone Marce Alexandre APRN Unavailable [phone] Rob Lagunas MD Unavailable Alejandrina Eugene DO Unavailable [phone] Unknown Primary Care Provider [phone] Encounter Details Date Type Department Care Team (Late st Contact Info) Description 09/21/2018 Scanned Document [facility] [address] [address] Provider, MD Jason [address] [place] [address] Social History Tobacco Use Types Packs/Day Years [...] on filedocumented in this encounter Care Teams Dress Fitter Relationship Specialty Start Date End Date Unknown Unknow Provider Address PCP - General 08/20/21 Marce Alexandre APRN [address] [address] Nurse Practitioner Surgery, Transplant 09/26/18 Rob Lagunas MD [address] [place] [address] Referring Provider Nephrology 09/26/18 Eugene Tinoco DO [address] [place] [address] Primary Care Provider Family Medicine 09/26/18 documented as of this encounter
--- OUTSIDE RECORDS SUMMARY | 2024-12-04 06:08 | XMS_ITS | Encounter Summary ---
Author Organization [facility], Address [address] [place] [address] Phone Care Team Providers Care Rotary Driller Prospecting Name Role Phone Nissa Mckeon DO Primary Care Pro vider Encounter Details Date Type Department Care Team ([facility] Contact Info) Description 05/23/2021 Documentation Only [facility], [address] [place] [address] Rob Lagunas MD [address] [place] [place] [address] Social History Tobacco Use Types [...] on filedocumented in this encounter Care Teams Rotary Driller Prospecting Relationship Specialty Start Date End Date Nissa Mckeon DO PCP - General 04/29/20 documented as of this encounter
--- OUTSIDE RECORDS SUMMARY | 2024-12-04 06:08 | XMS_ITS | Clinical Summary ---
Author Organization [facility] Address [address] [place] [address] Care Team Providers Care Mainspring Strip Inspector Name Role Phone Unavailable Primary Care Provider Unavailabl e Social History Tobacco Use Types Packs/Day Years Used Date Smoking Tobacco: Never Assessed Sex and Gender Information Value Date Recorded Sex Assigned at Not on file Gender Identity Not on file Sexual Orientation Not on file Plan of Treatment Not on file
--- OUTSIDE RECORDS SUMMARY | 2024-12-04 06:08 | XMS_ITS | Clinical Summary ---
Author Organization [facility] Address [address] [place] [address] Care Team Providers Care Client Success Manager Name Role Phone Unavailable Primary Care [...] meals. 270 Cap 2 3 Active b gbrgfhe-G-wrnxc acid (NEPHROCAPS) 1 mg per capsuleIndicatio ns:ESRD (end stage renal disease) on dialysis ([facility]) Take 1 Cap by mouth once daily. 30 Cap 4 3 Active loratadine (CLARITIN) 10 mg tabletIndication s:Allergic rhinitis Take 1 Tab by mouth once daily as needed for allergies. Active diphenhydrAMINE (BENADRYL) 50 mg tabletIndication s:ESRD (end stage renal disease) on dialysis ([facility]) Take 1 Tab by mouth as needed. [...] (two) times daily. 15 g Active b eutgzuo-P-luqdd acid (RENAL CAPS) 1 mg per capsuleIndicatio ns:ESRD (end stage renal disease) on dialysis ([facility]) Take 1 Cap by mouth once daily. [...] ESRD (end stage renal disease) on dialysis ([facility]) Overview (01/03/2013): Goes [facility] 2x/week, as No Computer Operations Technician in area will take her as patient due past poor behavior and non-compliance. Eczema ASTHMA MODERATE PERSISTENT Overview (01/02/2013): Tobacco abuse Hyperlipidemia Hidradenitis suppurativa Overview (01/02/2013): Wound care follow up Dr. Mcbride Borderline personality disorder ([facility]) Overview (01/03/2013): Non-compliant with psych f/u. GERD (gastroesophageal reflux disease) Constipation Allergic rhinitis Vulvar candidiasis Right hip pain Immunizations Immunization Administration Dates Next Due Hep B, Adult/Adol (MVFAANE-Z-DFABN/RECOMBIVAX-ADULT) 08/09/2008,07/19/2008,03/06/2008 PPD 07/03/2005 Social History Tobacco Use Types Packs/Day Years Used Date Smoking Tobacco: Never Assessed Comments Unknown Sex and Gender Information Value Date Recorded Sex Assigned at Not on file Legal Sex Female 11:36 AM PDT Gender Identity Not on file Sexual Orientation Not on file Plan of Treatment Not on file Insurance [place]
--- OUTSIDE RECORDS SUMMARY | 2024-12-04 06:08 | XMS_ITS | Clinical Summary ---
Author Organization [facility] Address [address] [address] Phone Care Team Providers Care Novelty Twister Operator Name Role Phone Eugene Tinoco DO Primary Care Provider [phone] Allergies Active Allergy Reactions Criticality Noted Date [...] 10:36 AM EST) HCV ANTIBODY Negative Negative [facility] Comment:Antibodies to HCV no t detected. Does not exclude the possibility of exposure to HCV. 06/24/2018 10:3 6 AM EST 06/24/2018 12:44 PM EST us Varun Robles MD LAB BLOOD ORDERABLES Final Result [facility] [address] [place] [address] from Last 3 Months or Most Recently Relevant to Health [place] [address] [facility] A [place] [id number] [facility] PART A & B [facility] [place] [id number] [facility] [place] [phone] MEDICARE PART A & B [facility] [place] [address] [facility] [address] MEDICARE PART A & [place] [id number] [facility] PART A & [place] [address] [facility] MED[facility] PART A & [place] [address] [facility] MED[facility] PART A [address] [place] [address] [facility] PART A & B [facility] [address] [place] MEDICARE PART A & [place] [id number] MEDICARE PART A & B [place] Care Teams Novelty Twister Operator Relationship Specialty Start Date End Date AlejandrinaEugeneDO PCP - General Family Medicine 01/31/18 Additional Source Comments The information contained in this document represents components of the legal health record. It is not the complete legal health record.[facility]
--- OUTSIDE RECORDS SUMMARY | 2024-12-04 06:08 | XMS_ITS | Clinical Summary ---
Author Organization [facility] Address [address] [place] [address] Care Team Providers Care Distribution Warehouse Manager Name Role Phone Unavailable Primary Care Provider Unavailabl e Surgical History Surgery Date Site/Laterality Comments OTHER SURGICAL HISTORY PROCEDURE: AV FISTULA OR GRAFT ARTERIAL PARATHYROIDECTOMY PROCEDURE: HISTORICAL PARATHYROIDECTOMY OTHER SURGICAL HISTORY PROCEDURE: [place] PRTL THYROID LOBECTOMY UNI W/WO ISTHMUSECTOMY Medical History Medical History Date Comments HTN (hypertension) DX:HTN (hyper tension) ESRD (end stage renal diseas e) ([facility], [facility] [place]) DX:ESRD (end stage renal dis ease) ([facility]); COMMENT: hd at [facility] er/icu; babu Anxiety DX:Anxiety Depression DX:Depression Bipolar disorder ([facility] [place] V2 4, [facility] [place]28) DX:Bipolar disorder ([facility]); C OMMENT: [facility] therapist Secondary hyperparathyroidis m ([facility] [place]) DX:Secondary hyperparathyroi dism ([facility]) Asthma DX:Asthma Tobacco use DX:Tobacco use Hidradenitis suppurativa DX:Hidr adenitis suppurativa History of substance abuse ( [facility] [place] [facility], [facility] [place]) DX:History of substance abus e ([facility]) GERD (gastroesophageal reflux disease) DX:GERD (gastroesophageal [...]
[2024-12-05 08:23] LABS: Tacrolimus Prograf 8.3 mcg/L
== END 2024-12-04 06:06 | disposition home or self-care (01) ==
LOC: HO.HMGCLDS 06:05
PROVIDERS: PCP Physician Assistant; Visit Provider Internal Medicine Critical Care Medicine
DX: Z94.0 Kidney transplant status (principal)
CPT/HCPCS: 36415; 80197

== ENCOUNTER 2024-12-25 06:13 | Outpatient (REF) | payer MEDICARE, MEDICAID, SELFPAY ==
--- OUTSIDE RECORDS SUMMARY | 2024-07-05 07:30 | XMS_ITS ---
Author Organization [facility] Address [address] [place] [address] Care Team Providers Care Professional Soccer Player Name Role Phone Alexx Baum Primary Care Provider Unavailab Nan Roper Unavailable [phone] REASON FOR VISIT Missbooked Encounters Encounter Location Date Provider Diagnosis [address] [address] 07/05/2024 Nan Phillips Plan Of Treatment No Information Progress Notes * Dara ROBLES RDOB:1975 (49 yo F)Acc No.[id number]:07/05/2024 Progress Note Patient: Dara ABDALLA Provider: Allie Phillips DPM :1975 A ge:48 Y S ex:Female Date:07/05/2024 Address:[address] [place], [place] [phone] Pcp:Alexx Baum Subjective: * Chief Complaints: * [...] Date: 07/05/2024 Generated for Printi ng/Faxing/eTransmitting on: 12/25/2024 06:17 AM EDT
--- OUTSIDE RECORDS SUMMARY | 2024-12-25 06:18 | XMS_ITS | Encounter Summary ---
Author Organization [facility], Address [address] [place] [address] Phone Care Team Providers Care Vulcanizer Name Role Phone TejalveronicaNissa Fu DO Primary Care Pro vider Encounter Details Date Type Department Care Team ([facility] Contact Info) Description 05/27/2020 Telephone [facility] [address] [place] [address] Danna Jain [address] [place] [address] Social History Tobacco Use Types [...] AM EST) Coronavirus COVID-19 PCR NEGATIVE (NEG) [facility] Comment: 2019-novel Coronavirus (2019-nCoV) not detected by real-time RT-PCR. Note: If clinical suspicion for COVID-19 is high, continue to maintain precautions and consider repeat testing. Result reported to the [facility]. To prevent errors in diagnosis, test results [...] performed by real time PCR utilizing [employer] SARS-CoV-2 test. SARS-CoV-2 Source [facility] Comment: Testing performed or reported by [facility], a Service of [facility], [address] [place] [address] Danyel Ponce MD, Shotgun Shell Reprinting Unit Operator 05/27/2020 11:5 6 AM EST 05/27/2020 2:49 PM EST Christiane Garay MD LAB HISTORICAL-CONVERSIONS- UNSOLICITED RESULTS Final Result [facility] documented in this encounter Visit Diagnoses Not on filedocumented in this encounter Care Teams Vulcanizer Relationship Specialty Start Date End Date Nissa Mckeon DO PCP - General 04/29/20 documented as of this encounter
--- OUTSIDE RECORDS SUMMARY | 2024-12-25 06:18 | XMS_ITS | Clinical Summary ---
Author Organization [facility] Address [address] [place] [address] Care Team Providers Care Hand Bender Name Role Phone Unavailable Primary Care Provider Unavailabl e Social History Tobacco Use Types Packs/Day Years Used Date Smoking Tobacco: Never Assessed Sex and Gender Information Value Date Recorded Sex Assigned at Not on file Gender Identity Not on file Sexual Orientation Not on file Plan of Treatment Not on file
--- OUTSIDE RECORDS SUMMARY | 2024-12-25 06:18 | XMS_ITS | Encounter Summary ---
Author Organization [facility] Address [address] [place] [address] Care Team Providers Care Brim Ironer Hand Name Role Phone Marce Alexandre APRN Unavailable Rob Lagunas MD Unavailable Alejandrina Eugene DO Unavailable [phone] Unknown Primary Care Provider [phone] Encounter Details Date Type Department Care Team (Late st Contact Info) Description 09/21/2018 Scanned Document [facility] [address] [address] Provider, MD Jason [address] [place] [address] Social History Tobacco Use Types Packs/Day Years [...] on filedocumented in this encounter Care Teams Brim Ironer Hand Relationship Specialty Start Date End Date Unknown Unknow Provider Address PCP - General 08/20/21 Marce Alexandre APRN [address] [address] Nurse Practitioner Surgery, Transplant 09/26/18 Rob Lagunas MD [address] [place] [address] Referring Provider Nephrology 09/26/18 Eugene Tinoco DO [address] [place] [address] Primary Care Provider Family Medicine 09/26/18 documented as of this encounter
--- OUTSIDE RECORDS SUMMARY | 2024-12-25 06:18 | XMS_ITS | Clinical Summary ---
Author Organization [facility] Address [address] [address] Phone Care Team Providers Care Steam Cleaner Name Role Phone Eugene Tinoco DO Primary Care Provider [phone] Allergies Active Allergy Reactions Criticality Noted Date [...] FOBT 2021 SIGMOIDOSCOPY 2021 VIRTUAL COLONOSCOPY 2021 INFLUENZA VACCINE (#1) 2024 9, 02/08/2018, 05/20/2017, Additional history exists COVID-19 VACCINE (3 - season) 2024 06/21/2020, 05/23/2020 PNEUMOCOCCAL VACCINES (0-49 years) (3 [...] 10:36 AM EST) HCV ANTIBODY Negative Negative [facility] Comment:Antibodies to HCV no t detected. Does not exclude the possibility of exposure to HCV. 06/24/2018 10:3 6 AM EST 06/24/2018 12:44 PM EST us Varun Robles MD LAB BLOOD ORDERABLES Final Result [address] [address] from Last 3 Months or Most Recently Relevant to Health Maintenance [facility] & B [place] PART A & B [facility] [facility] [place] [id number] [facility] MEDICARE PART A & B [place] MEDIC[place] PART A [address] [place] [address] [facility] & B [facility] [place] [address] [facility] MEDICARE PART A & B [place] MEDICARE PART A & B [place] Care Teams Steam Cleaner Relationship Specialty Start Date End Date Eugene Tinoco DO PCP - General Family Medicine 01/31/18 Additional Source Comments The information contained in this document represents components of the legal health record. It is not the complete legal health record.[facility]
--- OUTSIDE RECORDS SUMMARY | 2024-12-25 06:18 | XMS_ITS | Encounter Summary ---
Author Organization [facility], Address [address] [place] [address] Phone Care Team Providers Care Terminal Supervisor Name Role Phone Nissa Mckeon DO Primary Care Pro vider Encounter Details Date Type Department Care Team ([facility] Contact Info) Description 04/29/2021 Documentation Only [facility], [address] [place] [address] Rob Lagunas MD [address] [place] [address] Social History Tobacco Use Types [...] on filedocumented in this encounter Care Teams Terminal Supervisor Relationship Specialty Start Date End Date Nissa Mckeon DO PCP - General 04/29/20 documented as of this encounter
--- OUTSIDE RECORDS SUMMARY | 2024-12-25 06:18 | XMS_ITS | Encounter Summary ---
Author Organization [facility], Address [address] [place] [address] Phone Care Team Providers Care Manager Client Service Name Role Phone Nissa Mckeon DO Primary Care Pro vider Reason for Visit * Reason Comments Med Refill Encounter Details Date Type Department Care Team (Late st Contact Info) Description 07/17/2019 Refill [facility] [address] [place] [address] Wicho Johnson PA [address] [place] [address] Social History Tobacco Use Types Packs/Day Years [...] on filedocumented in this encounter Care Teams Manager Client Service Relationship Specialty Start Date End Date Nissa Mckeon DO PCP - General 04/29/20 documented as of this encounter
--- OUTSIDE RECORDS SUMMARY | 2024-12-25 06:18 | XMS_ITS | Clinical Summary ---
Author Organization [facility] Address [address] [place] [address] Care Team Providers Care Vp Of Customer Experience Strategy Name Role Phone Marce Alexandre STAN Unavailable [phone] Rob Lagunas MD Unavailable [phone] Eugene Tinoco DO Unavailable [phone] Unknown Primary Care Provider [phone] Allergies Active Allergy Reactions Criticality Noted Date [...] 90 08/20/2021 2:53 PM EDT Temperature 36.9 C (98.5 F) 08/20/2021 2:53 PM EDT Respiratory Rate 18 08/20/2021 2:53 PM EDT [...] 06/24/2018 Insurance MEDICARE PART A & B MEDICAID OUT OF STATE [facility] [place] [address] MEDICARE PART A & B MEDICAID OUT OF STATE [facility] Care Teams Vp Of Customer Experience Strategy Relationship Specialty Start Date End Date Unknown Unknow Provider Address PCP - General 08/20/21 Marce Alexandre APRN [address] [place] [address] Nurse Practitioner Surgery, Transplant 09/26/18 Rob Lagunas MD [address] [place] [address] Referring Provider Nephrology 09/26/18 Eugene Tinoco DO [address] [place] [address] Primary Care Provider Family Medicine 09/26/18
--- OUTSIDE RECORDS SUMMARY | 2024-12-25 06:18 | XMS_ITS | Encounter Summary ---
Author Organization [facility], Address [address] [place] [address] Phone Care Team Providers Care Erp Consultant Name Role Phone Nissa Mckeon DO Primary Care Pro vider Encounter Details Date Type Department Care Team (Late st Contact Info) Description 07/25/2021 Telephone [facility] - [facility] Center [address] [place] [address] Danna Jain [address] [place] [address] Social History Tobacco Use Types [...] on filedocumented in this encounter Care Teams Erp Consultant Relationship Specialty Start Date End Date Nissa Mckeon DO PCP - General 04/29/20 documented as of this encounter
--- OUTSIDE RECORDS SUMMARY | 2024-12-25 06:18 | XMS_ITS | Encounter Summary ---
Author Organization [facility] Address [address] [place] [address] Care Team Providers Care Tower Truck Driver Name Role Phone Marce Alexandre APRN Unavailable Rob Lagunas MD Unavailable [phone] Eugene Tinoco DO Unavailable [phone] Unknown Primary Care Provider [phone] Encounter Details Date Type Department Care Team (Late st Contact Info) Description 09/27/2018 Scanned Document [facility] [address] [address] Rohini Hairston [place] [address] [address] Social History Tobacco Use Types Packs/Day Years [...] on filedocumented in this encounter Care Teams Tower Truck Driver Relationship Specialty Start Date End Date Unknown Unknow Provider Address PCP - General 08/20/21 Marce Alexandre APRN [address] [address] Nurse Practitioner Surgery, Transplant 09/26/18 Rob Lagunas MD [facility] [place] [address] Referring Provider Nephrology 09/26/18 Eugene Tinoco DO [address] [place] [address] Primary Care Provider Family Medicine 09/26/18 documented as of this encounter
--- OUTSIDE RECORDS SUMMARY | 2024-12-25 06:18 | XMS_ITS | Encounter Summary ---
Author Organization [facility] Address [address] [place] [address] Care Team Providers Care Horse Trader Name Role Phone Marce Alexandre APRN Unavailable [phone] Rob Lagunas MD Unavailable [phone] Alejandrina Eugene DO Unavailable [phone] Unknown Primary Care Provider [phone] Encounter Details Date Type Department Care Team (Late st Contact Info) Description 09/28/2018 Scanned Document [facility] [address] [address] Provider, MD Jason [address] [place] [address] Social History Tobacco Use Types Packs/Day Years [...] on filedocumented in this encounter Care Teams Horse Trader Relationship Specialty Start Date End Date Unknown Unknow Provider Address PCP - General 08/20/21 Marce Alexandre APRN [address] [address] Nurse Practitioner Surgery, Transplant 09/26/18 Rob Lagunas MD [address] [place] [address] Referring Provider Nephrology 09/26/18 Eugene Tinoco DO [address] [place] [address] Primary Care Provider Family Medicine 09/26/18 documented as of this encounter
--- OUTSIDE RECORDS SUMMARY | 2024-12-25 06:18 | XMS_ITS | Encounter Summary ---
Author Organization [facility], Address [address] [place] [address] Phone Care Team Providers Care Dancing Master Name Role Phone Nissa Mckeon DO Primary Care Pro vider Reason for Visit * Reason Comments Med Refill Encounter Details Date Type Department Care Team (Late st Contact Info) Description 07/16/2020 Refill [facility] [address] [place] [address] Wicho Johnson PA [address] [place] [address] [place] [address] Social History Tobacco Use Types [...] on filedocumented in this encounter Care Teams Dancing Master Relationship Specialty Start Date End Date Nissa Mckeon DO PCP - General 04/29/20 documented as of this encounter
--- OUTSIDE RECORDS SUMMARY | 2024-12-25 06:18 | XMS_ITS | Clinical Summary ---
Author Organization [facility] Address [address] [place] [address] Care Team Providers Care Machine Attendant Name Role Phone Unavailable Primary Care Provider Unavailabl e Surgical History Surgery Date Site/Laterality Comments OTHER SURGICAL HISTORY PROCEDURE: AV FISTULA OR GRAFT ARTERIAL PARATHYROIDECTOMY PROCEDURE: HISTORICAL PARATHYROIDECTOMY OTHER SURGICAL HISTORY PROCEDURE: [place] PRTL THYROID LOBECTOMY UNI W/WO ISTHMUSECTOMY Medical History Medical History Date Comments HTN (hypertension) DX:HTN (hyper tension) ESRD (end stage renal diseas e) ([facility] [place], [facility] [place] V28) DX:ESRD (end stage renal dis ease) ([facility]); COMMENT: hd at [facility] er/icu; babu Anxiety DX:Anxiety Depression DX:Depression Bipolar disorder ([facility] [place] V2 4, [facility] [place] V28) DX:Bipolar disorder ([facility]); C OMMENT: [facility] therapist Secondary hyperparathyroidis m ([facility] [place] V24) DX:Secondary hyperparathyroi dism ([facility]) Asthma DX:Asthma Tobacco use DX:Tobacco use Hidradenitis suppurativa DX:Hidr adenitis suppurativa History of substance abuse ( [facility] [place] V24, [facility] [place] V28) DX:History of substance abus e ([facility]) GERD (gastroesophageal reflux disease) DX:GERD (gastroesophageal [...] (2 - Td or Tdap) 09/29/2023 09/28/2013 Depression Screening 04/19/2024 COVID-19 Vaccine (1 - 2023-2 5 season) 2024 Influenza Vaccine (#1) 2024 Pneumococcal Vaccine: Pediat [...]
--- OUTSIDE RECORDS SUMMARY | 2024-12-25 06:18 | XMS_ITS | Encounter Summary ---
Author Organization [facility] Address [address] [place] [address] Care Team Providers Care Project Drilling Engineer Name Role Phone Marce Alexandre APRN Unavailable Rob Lagunas MD Unavailable Alejandrina Eugene DO Unavailable [phone] Primary Care Provider [phone] Encounter Details Date Type Department Care Team (Late st Contact Info) Description 08/19/2018 Scanned Document [facility] [address] [address] Provider, MD Jason [address] [place] [address] Social History Tobacco Use Types Packs/Day Years [...] on filedocumented in this encounter Care Teams Project Drilling Engineer Relationship Specialty Start Date End Date Unknown Unknow Provider Address PCP - General 08/20/21 Marce Alexandre APRN [address] [address] Nurse Practitioner Surgery, Transplant 09/26/18 Rob Lagunas MD [address] [place] [address] Referring Provider Nephrology 09/26/18 Eugene Tinoco DO [address] [place] [address] Primary Care Provider Family Medicine 09/26/18 documented as of this encounter
--- OUTSIDE RECORDS SUMMARY | 2024-12-25 06:18 | XMS_ITS | Patient Health Record ---
Author [facility] Address [address] [facility] [place] [address] Care Team Providers Care Tile Erector Name Role Phone Alexx Baum Primary Care Provider Unavailab Nan Roper Unavailable [phone] Allergies Allergen (clinical drug ingredient) Drug/Non Drug [...] Problem Status W/U Status Risk Notes Problem Type II diabetes mellitus without complication (437970583) Diabetes mellitus without complication (E11.9) Active confirmed Vital Signs Blood pressure diastolic 65 mm Hg 07/05/2024 Height 5ft6in in 07/05/2024 Blood pressure systolic 113 mm Hg 07/05/2024 Weight 198 lbs 07/05/2024 BMI 31.95 kg/m2 07/05/2024 Encounters Encounter Location Date Provider Diagnosis [address] [address] 06/07/2024 Nan Perica Ingrown nail L60.0 ; Diabetes mellitus without complication E11.9 ; Pain in right toe(s) M79.674 and Pain in left toe(s) M79.[address] [address] 07/05/2024 Nan Perica Ingrown nail L60.0 and Diabetes mellitus without complication E11.[address] [address] 03/27/2024 Nan Perica Assessments Encounter Date Diagnosis [...] Inc [address] [place] [address] [id number] Areli Roblesver Self - patient is the insured 7 Medical (General) History Medical History History ICD Code Anxiety asthma Depression Kidney disease Reflux ( GERD) Diabetes mellitus Surgical History Surgery Date(Month/Year) kidney transplant 2020 shoulder replacement Left 2021
--- OUTSIDE RECORDS SUMMARY | 2024-12-25 06:18 | XMS_ITS | Encounter Summary ---
Author Organization [facility] Address [address] [place] [address] Care Team Providers Care Director Clinical Pharmacology Name Role Phone Marce Alexandre APRN Unavailable Rob Lagunas MD Unavailable [phone] Eugene Tinoco DO Unavailable [phone] Unknown Primary Care Provider [phone] Encounter Details Date Type Department Care Team (Late st Contact Info) Description 09/29/2018 Scanned Document [facility] [address] [address] Keke Stockton [address] [address] Social History Tobacco Use Types Packs/Day Years [...] on filedocumented in this encounter Care Teams Director Clinical Pharmacology Relationship Specialty Start Date End Date Unknown Unknow Provider Address PCP - General 08/20/21 Marce Alexandre APRN [address] [address] Nurse Practitioner Surgery, Transplant 09/26/18 Rob Lagunas MD [address] [place] [address] Referring Provider Nephrology 09/26/18 Eugene Tinoco DO [address] [place] [address] Primary Care Provider Family Medicine 09/26/18 documented as of this encounter
--- OUTSIDE RECORDS SUMMARY | 2024-12-25 06:18 | XMS_ITS | Clinical Summary ---
Author Organization [facility] Address [address] [place] [address] Care Team Providers Care Ice Skater Name Role Phone Unavailable Primary Care Provider [...] meals. 270 Cap 2 3 Active b jrbaykr-P-dpwaa acid (NEPHROCAPS) 1 mg per capsuleIndicatio ns:ESRD (end stage renal disease) on dialysis ([facility]) Take 1 Cap by mouth once daily. 30 Cap 4 3 Active loratadine (CLARITIN) 10 mg tabletIndication s:Allergic rhinitis Take 1 Tab by mouth once daily as needed for allergies. Active diphenhydrAMINE (BENADRYL) 50 mg tabletIndication s:ESRD (end stage renal disease) on dialysis ([facility]) Take 1 Tab by mouth as needed. [...] (two) times daily. 15 g Active b qslzvbs-K-zzuav acid (RENAL CAPS) 1 mg per capsuleIndicatio ns:ESRD (end stage renal disease) on dialysis ([facility]) Take 1 Cap by mouth once daily. [...] ESRD (end stage renal disease) on dialysis ([facility]) Overview (01/03/2013): Goes [facility] 2x/week, as No Financial Systems Administrator in area will take her as patient due past poor behavior and non-compliance. Eczema ASTHMA MODERATE PERSISTENT Overview (01/02/2013): Tobacco abuse Hyperlipidemia Hidradenitis suppurativa Overview (01/02/2013): Wound care follow up Dr. Mcbride Borderline personality disorder ([facility]) Overview (01/03/2013): Non-compliant with psych f/u. GERD (gastroesophageal reflux disease) Constipation Allergic rhinitis Vulvar candidiasis Right hip pain Immunizations Immunization Administration Dates Next Due Hep B, Adult/Adol (IEDJYCU-R-FIQOS/RECOMBIVAX-ADULT) 08/09/2008,07/19/2008,03/06/2008 PPD 07/03/2005 Social History Tobacco Use Types Packs/Day Years Used Date Smoking Tobacco: Never Assessed Comments Unknown Sex and Gender Information Value Date Recorded Sex Assigned at Not on file Legal Sex Female 11:36 AM PDT Gender Identity Not on file Sexual Orientation Not on file Plan of Treatment Not on file Insurance [place] - [place]
--- OUTSIDE RECORDS SUMMARY | 2024-12-25 06:18 | XMS_ITS | Encounter Summary ---
Author Organization [facility], Address [address] [place] [address] Phone Care Team Providers Care Body Die Maker Name Role Phone Nissa Mckeon DO Primary Care Pro vider Encounter Details Date Type Department Care Team ([facility] Contact Info) Description 05/23/2021 Documentation Only [facility], [address] [place] [address] Rob Lagunas MD [address] [place] [address] Social History Tobacco Use Types [...] on filedocumented in this encounter Care Teams Body Die Maker Relationship Specialty Start Date End Date Nissa Mckeon DO PCP - General 04/29/20 documented as of this encounter
--- OUTSIDE RECORDS SUMMARY | 2024-12-25 06:18 | XMS_ITS | Encounter Summary ---
Author Organization [facility] Address [address] [place] [address] Care Team Providers Care Nuclear Chemistry Technician Name Role Phone Marce Alexandre APRN Unavailable Rob Lagunas MD Unavailable Alejandrina Eugene DO Unavailable [phone] Unknown Primary Care Provider [phone] Encounter Details Date Type Department Care Team (Late st Contact Info) Description 09/21/2018 Scanned Document [facility] [address] [address] Provider, MD Jason [address] [place] [address] Social History Tobacco Use Types Packs/Day Years [...] on filedocumented in this encounter Care Teams Nuclear Chemistry Technician Relationship Specialty Start Date End Date Unknown Unknow Provider Address PCP - General 08/20/21 Marce Alexandre APRN [address] [address] Nurse Practitioner Surgery, Transplant 09/26/18 Rob Lagunas MD [address] [place] [address] Referring Provider Nephrology 09/26/18 Eugene Tinoco DO [address] [place] [address] Primary Care Provider Family Medicine 09/26/18 documented as of this encounter
--- OUTSIDE RECORDS SUMMARY | 2024-12-25 06:18 | XMS_ITS | Encounter Summary ---
Author Organization [facility] Address [address] [place] [address] Care Team Providers Care Greenhouse Technician Name Role Phone Marce Alexandre STAN Unavailable [phone] Rob Lagunas MD Unavailable [phone] Eugene Tinoco DO Unavailable [phone] Unknown Primary Care Provider [phone] Encounter Details Date Type Department Care Team (Late st Contact Info) Description 09/27/2018 Telephone [facility] Transplant Program & [facility] [address] [facility] [address] [place] [address] Ilene Gale [place] Social History Tobacco Use Types Packs/Day Years [...] because the patient requested to see a it applications manager. I introduced myself to both the [...] on filedocumented in this encounter Care Teams Greenhouse Technician Relationship Specialty Start Date End Date Unknown Unknow Provider Address PCP - General 08/20/21 Marce Alexandre APRN [address] [place] [address] Nurse Practitioner Surgery, Transplant 09/26/18 Rob Lagunas MD [address] [place] [address] Referring Provider Nephrology 09/26/18 Eugene Tinoco DO [address] [place] [address] Primary Care Provider Family Medicine 09/26/18 documented as of this encounter
--- OUTSIDE RECORDS SUMMARY | 2024-12-25 06:18 | XMS_ITS | Clinical Summary ---
Author Organization [facility], Address [address] [place] [address] Phone Care Team Providers Care Review Trainer Name Role Phone Nissa Mckeon DO Primary [...] (04/18/2020): Goes [facility] 2x/week, as No Financial Reporting Specialist in area will take her as [...] = 37.3 08/09/08 BMI = 37.3 08/09/08 Social History Tobacco Use Types Packs/Day Years [...] 76 09/27/2020 10:21 AM EDT Temperature 36.6 C (97.9 F) 09/27/2020 10:21 AM EDT Respiratory Rate - - Oxygen Saturation 99% [...] to 49 Years) (3 of 3 - PCV20 or PCV21) 11/29/2022 11/29/2017, 05/31/2017 Influenza Vaccine (#1) 2024 01/18/2019, 2016 Pneumococcal Vaccine: 50+ Years Discontinued 8, 05/31/2017 Insurance Medicare Medicaid [place] Care Teams Review Trainer Relationship Specialty Start Date End Date Nissa Mckeon DO PCP - General 04/29/20
[2024-12-25 14:29] LABS: Anion Gap 15 (12-20); Blood Urea Nitrogen 24 mg/dL (9-16); Calcium 9.0 mg/dL (8.4-10.2); Carbon Dioxide 16 mmol/L (22-29); Chloride 114 mmol/L (96-108); Estimated Glomerular Filt Rate 41; Potassium 4.0 mmol/L (3.3-5.1); Sodium 141 mmol/L (135-145)
[2024-12-26 08:29] LABS: Tacrolimus Prograf 9.4 mcg/L
== END 2024-12-25 06:14 | disposition home or self-care (01) ==
LOC: HO.HMGCLDS 06:13
PROVIDERS: PCP Physician Assistant; Visit Provider Internal Medicine Critical Care Medicine
DX: Z94.0 Kidney transplant status (principal)
CPT/HCPCS: 36415; 80048; 80197

== ENCOUNTER 2025-01-15 06:08 | Outpatient (REF) | payer MEDICARE, MEDICAID, SELFPAY ==
--- OUTSIDE RECORDS SUMMARY | 2024-07-05 07:30 | XMS_ITS ---
Author Organization [facility] Address [address] [place] [address] Care Team Providers Care Pharmacy Technician Program Director Name Role Phone Alexx Baum Primary Care Provider Unavailab Nan Roper Unavailable [phone] REASON FOR VISIT Missbooked Encounters Encounter Location Date Provider Diagnosis [address] [address] 07/05/2024 Nan Phillips Plan Of Treatment No Information Progress Notes * Dara ROBLES RDOB:1975 (49 yo F)Acc No.[id number]:07/05/2024 Progress Note Patient: Dara ABDALLA Provider: Allie Phillips DPM :1975 A ge:48 Y S ex:Female Date:07/05/2024 Address:[address] [place], [place] [phone] Pcp:Alexx Baum Subjective: * Chief Complaints: * [...] Date: 07/05/2024 Generated for Printi ng/Faxing/eTransmitting on: 01/15/2025 06:10 AM EDT
--- OUTSIDE RECORDS SUMMARY | 2025-01-15 06:10 | XMS_ITS | Clinical Summary ---
Author Organization [facility] Address [address] [place] [address] Care Team Providers Care Fish Receiver Name Role Phone Unavailable Primary Care Provider Unavailabl e Surgical History Surgery Date Site/Laterality Comments OTHER SURGICAL HISTORY PROCEDURE: AV FISTULA OR GRAFT ARTERIAL PARATHYROIDECTOMY PROCEDURE: HISTORICAL PARATHYROIDECTOMY OTHER SURGICAL HISTORY PROCEDURE: [place] PRTL THYROID LOBECTOMY UNI W/WO ISTHMUSECTOMY Medical History Medical History Date Comments HTN (hypertension) DX:HTN (hyper tension) ESRD (end stage renal diseas e) [place] [place] [facility] [place]28) DX:ESRD (end stage renal dis ease) ([facility]); COMMENT: hd at [facility] er/icu; babu Anxiety DX:Anxiety Depression DX:Depression Bipolar disorder [place] [place]2 4, [facility] V28) DX:Bipolar disorder ([facility]); C OMMENT: [facility] therapist Secondary hyperparathyroidis m ([facility] [place]24) DX:Secondary hyperparathyroi dism ([facility]) Asthma DX:Asthma Tobacco use DX:Tobacco use Hidradenitis suppurativa DX:Hidr adenitis suppurativa History of substance abuse ( [facility] [place], [facility] V28) DX:History of substance abus e ([facility]) GERD (gastroesophageal reflux disease) DX:GERD [...]
--- OUTSIDE RECORDS SUMMARY | 2025-01-15 06:10 | XMS_ITS | Encounter Summary ---
Author Organization [facility], Address [address] [place] [address] Phone Care Team Providers Care Local Hazmat Driver Name Role Phone Nissa Mckeon DO Primary Care Pro vider Encounter Details Date Type Department Care Team ([facility] Contact Info) Description 04/29/2021 Documentation Only [facility], [address] [place] [address] Rob Lagunas MD [address] [place] [address] Social History Tobacco Use Types [...] on filedocumented in this encounter Care Teams Local Hazmat Driver Relationship Specialty Start Date End Date Nissa Mckeon DO PCP - General 04/29/20 documented as of this encounter
--- OUTSIDE RECORDS SUMMARY | 2025-01-15 06:10 | XMS_ITS | Encounter Summary ---
Author Organization [facility], Address [address] [place] [address] Phone Care Team Providers Care Stone Spreader Operator Name Role Phone Nissa Mckeon DO Primary Care Pro vider Encounter Details Date Type Department Care Team ([facility] Contact Info) Description 05/23/2021 Documentation Only [facility], [address] [place] [address] Rob Lagunas MD [address] [place] [address] Social History Tobacco Use Types [...] on filedocumented in this encounter Care Teams Stone Spreader Operator Relationship Specialty Start Date End Date Nissa Mckeon DO PCP - General 04/29/20 documented as of this encounter
--- OUTSIDE RECORDS SUMMARY | 2025-01-15 06:10 | XMS_ITS | Encounter Summary ---
Author Organization [facility], Address [address] [place] [address] Phone Care Team Providers Care Sign Poster Name Role Phone Nissa Mckeon DO Primary Care Pro vider Encounter Details Date Type Department Care Team (Late st Contact Info) Description 07/25/2021 Telephone [facility] [address] [place] [address] Danna Jain [address] [place] [address] Social History Tobacco Use Types [...] on filedocumented in this encounter Care Teams Sign Poster Relationship Specialty Start Date End Date Nissa Mckeon DO PCP - General 04/29/20 documented as of this encounter
--- OUTSIDE RECORDS SUMMARY | 2025-01-15 06:11 | XMS_ITS | Clinical Summary ---
Author Organization [facility], Address [address] [place] [address] Phone Care Team Providers Care Cookee Name Role Phone Nissa Mckeon DO Primary [...] (04/18/2020): Goes [facility] 2x[facility]week, as No Parts Facilitator in area will take her as patient [...] 05/31/2017 Insurance Medicare Medicaid [place] Care Teams Cookee Relationship Specialty Start Date End Date Nissa Mckeon DO PCP - General 04/29/20
--- OUTSIDE RECORDS SUMMARY | 2025-01-15 06:11 | XMS_ITS | Patient Health Record ---
Author [facility] Address [address] [place] [address] Care Team Providers Care Distribution Systems Serviceperson Name Role Phone Alexx Baum Primary Care Provider Unavailab Nan Roper Unavailable [phone] Allergies Allergen (clinical drug ingredient) Drug/Non Drug [...] Problem Type II diabetes mellitus without complication ([id number]) Diabetes mellitus without complication (E11.9) Active confirmed Vital Signs Blood pressure diastolic 65 mm Hg 07/05/2024 Height 5ft6in in 07/05/2024 Blood pressure systolic 113 mm Hg 07/05/2024 Weight 198 lbs 07/05/2024 BMI 31.95 kg/m2 07/05/2024 Encounters Encounter Location Date Provider Diagnosis [address] [address] 06/07/2024 Nan Perica Ingrown nail L60.0 ; Diabetes mellitus without complication E11.9 ; Pain in right toe(s) M79.674 and Pain in left toe(s) M79.[address] [address] 07/05/2024 Nan Perica Ingrown nail L60.0 and Diabetes mellitus without complication E11.[address] [address] 03/27/2024 Nan Perica Assessments Encounter Date Diagnosis [...] Inc [address] [place] [address] [id number] Areli Roblesver Self - patient is the insured 7 Medical (General) History Medical History History ICD Code Anxiety asthma Depression Kidney disease Reflux ( GERD) Diabetes mellitus Surgical History Surgery Date(Month/Year) kidney transplant 2020 shoulder replacement Left 2021
--- OUTSIDE RECORDS SUMMARY | 2025-01-15 06:11 | XMS_ITS | Encounter Summary ---
Author Organization [facility] Address [address] [place] [address] Care Team Providers Care Aerial Photogrammetrist Name Role Phone Marce Alexandre APRN Unavailable Rob Lagunas MD Unavailable Alejandrina Eugene DO Unavailable [phone] Unknown Primary Care Provider [phone] Encounter Details Date Type Department Care Team (Late st Contact Info) Description 09/21/2018 Scanned Document [facility] [address] [address] Provider, MD Jason [address] [place] [address] Social History Tobacco Use Types Packs/Day Years [...] on filedocumented in this encounter Care Teams Aerial Photogrammetrist Relationship Specialty Start Date End Date Unknown Unknow Provider Address PCP - General 08/20/21 Marce Alexandre APRN [address] [address] Nurse Practitioner Surgery, Transplant 09/26/18 Rob Lagunas MD [address] [place] [address] Referring Provider Nephrology 09/26/18 Eugene Tinoco DO [address] [place] [address] Primary Care Provider Family Medicine 09/26/18 documented as of this encounter
--- OUTSIDE RECORDS SUMMARY | 2025-01-15 06:11 | XMS_ITS | Encounter Summary ---
Author Organization [facility] Address [address] [place] [address] Care Team Providers Care Scientific Linguist Name Role Phone Marce Alexandre APRN Unavailable Rob Lagunas MD Unavailable Alejandrina Eugene DO Unavailable [phone] Unknown Primary Care Provider [phone] Encounter Details Date Type Department Care Team (Late st Contact Info) Description 09/28/2018 Scanned Document [facility] [address] [address] Provider, MD Jason [address] [place] [address] Social History Tobacco Use Types Packs/Day Years [...] on filedocumented in this encounter Care Teams Scientific Linguist Relationship Specialty Start Date End Date Unknown Unknow Provider Address PCP - General 08/20/21 Marce Alexandre APRN [address] [address] Nurse Practitioner Surgery, Transplant 09/26/18 Rob Lagunas MD [address] [place] [address] Referring Provider Nephrology 09/26/18 Eugene Tinoco DO [address] [place] [address] Primary Care Provider Family Medicine 09/26/18 documented as of this encounter
--- OUTSIDE RECORDS SUMMARY | 2025-01-15 06:11 | XMS_ITS | Encounter Summary ---
Author Organization [facility], Address [address] [place] [address] Phone Care Team Providers Care Towel Hemmer Name Role Phone TejalveronicaNissa Fu DO Primary Care Pro vider Encounter Details Date Type Department Care Team ([facility] Contact Info) Description 05/27/2020 Telephone [facility] [address] [place] [address] Danna Jain [address] [place] [address] Social History Tobacco Use Types [...] AM EST) Coronavirus COVID-19 PCR NEGATIVE (NEG) [facility] Comment: 2019-novel Coronavirus (2019-nCoV) not detected by real-time RT-PCR. Note: If clinical suspicion for COVID-19 is high, continue to maintain precautions and consider repeat testing. Result reported to the [facility]. To prevent errors in diagnosis, test results [...] performed by real time PCR utilizing [employer] SARS-CoV-2 test. SARS-CoV-2 Source [facility] Comment: Testing performed or reported by [facility], a Service of [facility], [address] [place] [address] Danyel Ponce MD, Associate Counsel 05/27/2020 11:5 6 AM EST 05/27/2020 2:49 PM EST Christiane Garay MD LAB HISTORICAL-CONVERSIONS- UNSOLICITED RESULTS Final Result [facility] documented in this encounter Visit Diagnoses Not on filedocumented in this encounter Care Teams Towel Hemmer Relationship Specialty Start Date End Date Nissa Mckeon DO PCP - General 04/29/20 documented as of this encounter
--- OUTSIDE RECORDS SUMMARY | 2025-01-15 06:11 | XMS_ITS | Clinical Summary ---
Author Organization [facility] Address [address] [address] Phone Care Team Providers Care Internist Medical Doctor Md Name Role Phone Eugene Tinoco DO Primary Care Provider [phone] Allergies Active Allergy Reactions Criticality Noted Date [...] 10:36 AM EST) HCV ANTIBODY Negative Negative [facility] Comment:Antibodies to HCV no t detected. Does not exclude the possibility of exposure to HCV. 06/24/2018 10:3 6 AM EST 06/24/2018 12:44 PM EST us Varun Robles MD LAB BLOOD ORDERABLES Final Result [address] [address] from Last 3 Months or Most Recently Relevant to Health Maintenance [facility] & [facility] & [place] A & B [facility] [place] [address] [facility] MEDICARE PART A & B [place] MEDICARE PART A & [place] [address] [facility] & B [facility] PART A & B [facility] [place] [address] [facility] MEDICARE PART A & [place] A & B MED[place]ARE [place] A & [place] Care Teams Internist Medical Doctor Md Relationship Specialty Start Date End Date Eugene Tinoco DO PCP - General Family Medicine 01/31/18 Additional Source Comments The information contained in this document represents components of the legal health record. It is not the complete legal health record.[facility]
--- OUTSIDE RECORDS SUMMARY | 2025-01-15 06:11 | XMS_ITS | Clinical Summary ---
Author Organization [facility] Address [address] [place] [address] Care Team Providers Care Informatics Spec Name Role Phone Unavailable Primary Care Provider Unavailabl e Social History Tobacco Use Types Packs/Day Years Used Date Smoking Tobacco: Never Assessed Sex and Gender Information Value Date Recorded Sex Assigned at Not on file Gender Identity Not on file Sexual Orientation Not on file Plan of Treatment Not on file
--- OUTSIDE RECORDS SUMMARY | 2025-01-15 06:11 | XMS_ITS | Encounter Summary ---
Author Organization [facility], Address [address] [place] [address] Phone Care Team Providers Care Wallpaper Inspector Name Role Phone Nissa Mckeon DO Primary Care Pro vider Reason for Visit * Reason Comments Med Refill Encounter Details Date Type Department Care Team (Late st Contact Info) Description 07/17/2019 Refill [facility] [address] [place] [address] Wicho Johnson PA [address] [place] [address] Social History Tobacco Use Types [...] on filedocumented in this encounter Care Teams Wallpaper Inspector Relationship Specialty Start Date End Date Nissa Mckeon DO PCP - General 04/29/20 documented as of this encounter
--- OUTSIDE RECORDS SUMMARY | 2025-01-15 06:11 | XMS_ITS | Clinical Summary ---
Author Organization [facility] Address [address] [place] [address] Care Team Providers Care Director Of Programming Name Role Phone Marce Alexandre STAN Unavailable [phone] Rob Lagunas MD Unavailable [phone] Eugene Tinoco DO Unavailable [phone] Unknown Primary Care Provider [phone] Allergies Active Allergy Reactions Criticality Noted Date [...] A & B MEDICAID OUT OF STATE [facility] [facility] [place] [address] MEDICARE PART A & B MEDICAID OUT OF STATE [facility] Care Teams Director Of Programming Relationship Specialty Start Date End Date Unknown Unknow Provider Address PCP - General 08/20/21 Marce Alexandre APRN [address] [place] [address] Nurse Practitioner Surgery, Transplant 09/26/18 Rob Lagunas MD [address] [place] [address] Referring Provider Nephrology 09/26/18 Eugene Tinoco DO [address] [place] [address] Primary Care Provider Family Medicine 09/26/18
--- OUTSIDE RECORDS SUMMARY | 2025-01-15 06:11 | XMS_ITS | Encounter Summary ---
Author Organization [facility] Address [address] [place] [address] Care Team Providers Care Senior Financial Consultant Name Role Phone Marce Alexandre APRN Unavailable Rob Lagunas MD Unavailable Eugene Tinoco DO Unavailable [phone] Unknown Primary Care Provider [phone] Encounter Details Date Type Department Care Team (Late st Contact Info) Description 09/29/2018 Scanned Document [facility] [address] [address] Keke Stockton [address] [address] Social History Tobacco Use Types Packs/Day Years [...] on filedocumented in this encounter Care Teams Senior Financial Consultant Relationship Specialty Start Date End Date Unknown Unknow Provider Address PCP - General 08/20/21 Marce Alexandre APRN [address] [address] Nurse Practitioner Surgery, Transplant 09/26/18 Rob Lagunas MD [address] [place] [address] Referring Provider Nephrology 09/26/18 Eugene Tinoco DO [address] [place] [address] Primary Care Provider Family Medicine 09/26/18 documented as of this encounter
--- OUTSIDE RECORDS SUMMARY | 2025-01-15 06:11 | XMS_ITS | Encounter Summary ---
Author Organization [facility] Address [address] [place] [address] Care Team Providers Care Forestry Supervisor Name Role Phone Marce Alexandre STAN Unavailable [phone] Rob Lagunas MD Unavailable [phone] Eugene Tinoco DO Unavailable [phone] Unknown Primary Care Provider [phone] Encounter Details Date Type Department Care Team (Late st Contact Info) Description 09/27/2018 Telephone [facility] Transplant Program & [facility] [place] [facility] [address] [facility] [address] [place] [address] Ilene Gale ID Social History Tobacco Use Types Packs/Day Years [...] because the patient requested to see a auto leasing manager. I introduced myself to both the [...] on filedocumented in this encounter Care Teams Forestry Supervisor Relationship Specialty Start Date End Date Unknown Unknow Provider Address PCP - General 08/20/21 Marce Alexandre APRN [address] [place] [address] Nurse Practitioner Surgery, Transplant 09/26/18 Rob Lagunas MD [address] [place] [address] Referring Provider Nephrology 09/26/18 Eugene Tinoco DO [address] [place] [address] Primary Care Provider Family Medicine 09/26/18 documented as of this encounter
--- OUTSIDE RECORDS SUMMARY | 2025-01-15 06:11 | XMS_ITS | Encounter Summary ---
Author Organization [facility], Address [address] [place] [address] Phone Care Team Providers Care Service Aide Name Role Phone Nissa Mckeon DO Primary Care Pro vider Reason for Visit * Reason Comments Med Refill Encounter Details Date Type Department Care Team (Late st Contact Info) Description 07/16/2020 Refill [facility] [address] [place] [address] Wicho Johnson PA [address] [place] [address] [place] [address] Social History Tobacco Use Types [...] on filedocumented in this encounter Care Teams Service Aide Relationship Specialty Start Date End Date Nissa Mckeon DO PCP - General 04/29/20 documented as of this encounter
--- OUTSIDE RECORDS SUMMARY | 2025-01-15 06:11 | XMS_ITS | Encounter Summary ---
Author Organization [facility] Address [address] [place] [address] Care Team Providers Care Stone Gluer Name Role Phone Marce Alexandre APRN Unavailable Rob Lagunas MD Unavailable [phone] Eugene Tinoco DO Unavailable Unknown Primary Care Provider [phone] Encounter Details Date Type Department Care Team (Late st Contact Info) Description 09/27/2018 Scanned Document [facility] [address] [address] Rohini Hairston MA [address] [address] Social History Tobacco Use Types Packs/Day Years [...] filedocumented in this encounter Care Teams Stone Gluer Relationship Specialty Start Date End Date Unknown Unknow Provider Address PCP - General 08/20/21 Marce Alexandre APRN [address] [address] Nurse Practitioner Surgery, Transplant 09/26/18 Rob Lagunas MD [facility] [place] [address] Referring Provider Nephrology 09/26/18 Eugene Tinoco DO [address] [place] [address] Primary Care Provider Family Medicine 09/26/18 documented as of this encounter
--- OUTSIDE RECORDS SUMMARY | 2025-01-15 06:11 | XMS_ITS | Encounter Summary ---
Author Organization [facility] Address [address] [place] [address] Care Team Providers Care Grinder Set Up Operator Centerless Name Role Phone Marce Alexandre APRN Unavailable Rob Lagunas MD Unavailable [phone] Alejandrina Eugene DO Unavailable [phone] Unknown Primary Care Provider [phone] Encounter Details Date Type Department Care Team (Late st Contact Info) Description 08/19/2018 Scanned Document [facility] [address] [address] Provider, MD Jason [address] [place] [address] Social History Tobacco Use Types Packs/Day Years [...] on filedocumented in this encounter Care Teams Grinder Set Up Operator Centerless Relationship Specialty Start Date End Date Unknown Unknow Provider Address PCP - General 08/20/21 Marce Alexandre APRN [address] [address] Nurse Practitioner Surgery, Transplant 09/26/18 Rob Lagunas MD [address] [place] [address] Referring Provider Nephrology 09/26/18 Eugene Tinoco DO [address] [place] [address] Primary Care Provider Family Medicine 09/26/18 documented as of this encounter
--- OUTSIDE RECORDS SUMMARY | 2025-01-15 06:11 | XMS_ITS | Encounter Summary ---
Author Organization [facility] Address [address] [place] [address] Care Team Providers Care Baker Second Name Role Phone Marce Alexandre APRN Unavailable [phone] Rob Lagunas MD Unavailable [phone] Alejandrina Eugene DO Unavailable [phone] Unknown Primary Care Provider [phone] Encounter Details Date Type Department Care Team (Late st Contact Info) Description 09/21/2018 Scanned Document [facility] [address] [address] Provider, MD Jason [address] [place] [address] Social History Tobacco Use Types Packs/Day Years [...] on filedocumented in this encounter Care Teams Baker Second Relationship Specialty Start Date End Date Unknown Unknow Provider Address PCP - General 08/20/21 Marce Alexandre APRN [address] [address] Nurse Practitioner Surgery, Transplant 09/26/18 Rob Lagunas MD [address] [place] [address] Referring Provider Nephrology 09/26/18 Eugene Tinoco DO [address] [place] [address] Primary Care Provider Family Medicine 09/26/18 documented as of this encounter
[2025-01-15 10:49] LABS: Anion Gap 12 (12-20); Blood Urea Nitrogen 16 mg/dL (9-16); Calcium 8.9 mg/dL (8.4-10.2); Carbon Dioxide 20 mmol/L (22-29); Chloride 111 mmol/L (96-108); Estimated Glomerular Filt Rate 48; Potassium 3.4 mmol/L (3.3-5.1); Sodium 140 mmol/L (135-145)
[2025-01-16 08:07] LABS: Tacrolimus Prograf 3.4 mcg/L
== END 2025-01-15 06:09 | disposition home or self-care (01) ==
LOC: HO.HMGCLDS 06:08
PROVIDERS: Visit Provider Internal Medicine Critical Care Medicine
DX: N18.6 End stage renal disease (principal); Z94.0 Kidney transplant status
CPT/HCPCS: 36415; 80048; 80197

== ENCOUNTER 2025-01-17 06:05 | Outpatient (REF) | payer MEDICARE, MEDICAID, SELFPAY ==
--- OUTSIDE RECORDS SUMMARY | 2024-07-05 07:30 | XMS_ITS ---
Author Organization [facility] Address [address] [place] [address] Care Team Providers Care Packing Inspector Name Role Phone Alexx Baum Primary Care Provider Unavailab Nan Roper Unavailable [phone] REASON FOR VISIT Missbooked Encounters Encounter Location Date Provider Diagnosis [facility] [address] [place] [address] 07/05/2024 Nan Phillips Plan Of Treatment No Information Progress Notes * Dara ROBLES RDOB:1975 (49 yo F)Acc No.[id number]:07/05/2024 Progress Note Patient: Dara ABDALLA Provider: Allie Phillips DPM :1975 A ge:48 Y S ex:Female Date:07/05/2024 Address:[address] [place], [place] [id number] Pcp:Alexx Baum Subjective: * Chief Complaints: * [...] 0 07/05/2024 Generated for Printi ng/Faxing/eTransmitting on: 1 06:07 AM EDT
--- OUTSIDE RECORDS SUMMARY | 2025-01-17 06:08 | XMS_ITS | Encounter Summary ---
Author Organization [facility] Address [address] [place] [address] Care Team Providers Care Window Decorator Name Role Phone Marce Alexandre APRN Unavailable Rob Lagunas MD Unavailable [phone] Alejandrina Eugene DO Unavailable [phone] Unknown Primary Care Provider [phone] Encounter Details Date Type Department Care Team (Late st Contact Info) Description 08/19/2018 Scanned Document [facility] [address] [address] Provider, MD Jason [address] [place] [address] Social History Tobacco Use Types Packs/Day Years [...] on filedocumented in this encounter Care Teams Window Decorator Relationship Specialty Start Date End Date Unknown Unknow Provider Address PCP - General 08/20/21 Marce Alexandre APRN [address] [address] Nurse Practitioner Surgery, Transplant 09/26/18 Rob Lagunas MD [address] [place] [address] Referring Provider Nephrology 09/26/18 Eugene Tinoco DO [address] [place] [address] Primary Care Provider Family Medicine 09/26/18 documented as of this encounter
--- OUTSIDE RECORDS SUMMARY | 2025-01-17 06:08 | XMS_ITS | Encounter Summary ---
Author Organization [facility], Address [address] [place] [address] Phone Care Team Providers Care Automated Access Systems Technician Name Role Phone Nissa Mckeon DO Primary Care Pro vider Encounter Details Date Type Department Care Team ([facility] Contact Info) Description 04/29/2021 Documentation Only [facility], [address] [place] [address] Rob Lagunas MD [address] [place] [address] Social History Tobacco Use Types [...] on filedocumented in this encounter Care Teams Automated Access Systems Technician Relationship Specialty Start Date End Date Nissa Mckeon DO PCP - General 04/29/20 documented as of this encounter
--- OUTSIDE RECORDS SUMMARY | 2025-01-17 06:08 | XMS_ITS | Encounter Summary ---
Author Organization [facility] Address [address] [place] [address] Care Team Providers Care Printed Circuit Boards Solder Leveler Name Role Phone Marce Alexandre APRN Unavailable Rob Lagunas MD Unavailable Alejandrina Eugene DO Unavailable [phone] Unknown Primary Care Provider [phone] Encounter Details Date Type Department Care Team (Late st Contact Info) Description 09/28/2018 Scanned Document [facility] [address] [address] Provider, MD Jason [address] [place] [address] Social History Tobacco Use Types Packs/Day Years [...] on filedocumented in this encounter Care Teams Printed Circuit Boards Solder Leveler Relationship Specialty Start Date End Date Unknown Unknow Provider Address PCP - General 08/20/21 Marce Alexandre APRN [address] [address] Nurse Practitioner Surgery, Transplant 09/26/18 Rob Lagunas MD [address] [place] [address] Referring Provider Nephrology 09/26/18 Eugene Tinoco DO [address] [place] [address] Primary Care Provider Family Medicine 09/26/18 documented as of this encounter
--- OUTSIDE RECORDS SUMMARY | 2025-01-17 06:08 | XMS_ITS | Encounter Summary ---
Author Organization [facility], Address [address] [place] [address] Phone Care Team Providers Care Manager Critical Care Name Role Phone Nissa Mckeon DO Primary Care Pro vider Reason for Visit * Reason Comments Med Refill Encounter Details Date Type Department Care Team (Late st Contact Info) Description 07/17/2019 Refill [facility] [address] [place] [address] Wicho Johnson PA [address] [place] [address] Social History Tobacco Use Types [...] filedocumented in this encounter Care Teams Manager Critical Care Relationship Specialty Start Date End Date Nissa Mckeon DO PCP - General 04/29/20 documented as of this encounter
--- OUTSIDE RECORDS SUMMARY | 2025-01-17 06:08 | XMS_ITS | Encounter Summary ---
Author Organization [facility] Address [address] [place] [address] Care Team Providers Care Pc Installation Engineer Name Role Phone Marce Alexandre APRN Unavailable Rob Lagunas MD Unavailable [phone] Eugene Tinoco DO Unavailable [phone] Unknown Primary Care Provider [phone] Encounter Details Date Type Department Care Team (Late st Contact Info) Description 09/29/2018 Scanned Document [facility] [address] [address] Keke Stockton [address] [address] Social History Tobacco Use Types Packs/Day Years [...] on filedocumented in this encounter Care Teams Pc Installation Engineer Relationship Specialty Start Date End Date Unknown Unknow Provider Address PCP - General 08/20/21 Marce Alexandre APRN [address] [address] Nurse Practitioner Surgery, Transplant 09/26/18 Rob Lagunas MD [address] [place] [address] Referring Provider Nephrology 09/26/18 Eugene Tinoco DO [address] [place] [address] Primary Care Provider Family Medicine 09/26/18 documented as of this encounter
--- OUTSIDE RECORDS SUMMARY | 2025-01-17 06:08 | XMS_ITS | Encounter Summary ---
Author Organization [facility] Address [address] [place] [address] Care Team Providers Care Batch Tank Controller Name Role Phone Marce Alexandre APRN Unavailable [phone] Rob Lagunas MD Unavailable [phone] Eugene Tinoco DO Unavailable [phone] Unknown Primary Care Provider [phone] Encounter Details Date Type Department Care Team (Late st Contact Info) Description 09/27/2018 Scanned Document [facility] [address] [address] Rohini Hairston MA [address] [address] Social History Tobacco Use Types Packs/Day Years [...] on filedocumented in this encounter Care Teams Batch Tank Controller Relationship Specialty Start Date End Date Unknown Unknow Provider Address PCP - General 08/20/21 Marce Alexandre APRN [address] [address] Nurse Practitioner Surgery, Transplant 09/26/18 Rob Lagunas MD [facility]0 [place] [address] Referring Provider Nephrology 09/26/18 Eugene Tinoco DO [address] [place] [address] Primary Care Provider Family Medicine 09/26/18 documented as of this encounter
--- OUTSIDE RECORDS SUMMARY | 2025-01-17 06:08 | XMS_ITS | Clinical Summary ---
Author Organization [employer] [facility] Address [address] [place] [address] Care Team Providers Care Podiatry Teacher Name Role Phone Unavailable Primary Care Provider Unavailabl e Social History Tobacco Use Types Packs/Day Years Used Date Smoking Tobacco: Never Assessed Sex and Gender Information Value Date Recorded Sex Assigned at Not on file Gender Identity Not on file Sexual Orientation Not on file Plan of Treatment Not on file
--- OUTSIDE RECORDS SUMMARY | 2025-01-17 06:08 | XMS_ITS | Clinical Summary ---
Author Organization [facility] Address [address] [place] [address] Care Team Providers Care Spiral Gear Generator Name Role Phone aMrce Alexandre STAN Unavailable [phone] Rob Lagunas MD Unavailable [phone] Eugene Tinoco DO Unavailable [phone] Unknown Primary Care Provider [phone] Allergies Active Allergy Reactions Criticality Noted Date [...] A & B MEDICAID OUT OF STATE [facility] [place] [address] MEDICARE PART A & B MEDICAID OUT OF STATE [facility] Care Teams Spiral Gear Generator Relationship Specialty Start Date End Date Unknown Unknow Provider Address PCP - General 08/20/21 Marce Alexandre APRN [address] [place] [address] Nurse Practitioner Surgery, Transplant 09/26/18 Rob Lagunas MD [address] [place] [address] Referring Provider Nephrology 09/26/18 Eugene Tinoco DO [address] [place] [address] Primary Care Provider Family Medicine 09/26/18
--- OUTSIDE RECORDS SUMMARY | 2025-01-17 06:08 | XMS_ITS | Clinical Summary ---
Author Organization [facility] Address [address] [place] [address] Care Team Providers Care Tube Operator Name Role Phone Unavailable Primary Care Provider Unavailabl e Surgical History Surgery Date Site/Laterality Comments OTHER SURGICAL HISTORY PROCEDURE: AV FISTULA OR GRAFT ARTERIAL PARATHYROIDECTOMY PROCEDURE: HISTORICAL PARATHYROIDECTOMY OTHER SURGICAL HISTORY PROCEDURE: MD PRTL THYROID LOBECTOMY UNI W/WO ISTHMUSECTOMY Medical History Medical History Date Comments HTN (hypertension) DX:HTN (hyper tension) ESRD (end stage renal diseas e) ([facility] V24, [facility] V28) DX:ESRD (end stage renal dis ease) ([facility]); COMMENT: hd at [facility] er/icu; babu Anxiety DX:Anxiety Depression DX:Depression Bipolar disorder ([facility] V2 4, [facility] V28) DX:Bipolar disorder ([facility]); C OMMENT: [facility] therapist Secondary hyperparathyroidis m ([facility] V24) DX:Secondary hyperparathyroi dism ([facility]) Asthma DX:Asthma Tobacco use DX:Tobacco use Hidradenitis suppurativa DX:Hidr adenitis suppurativa History of substance abuse ( [facility] V24, [facility] V28) DX:History of substance abus e ([facility]) GERD (gastroesophageal reflux disease) DX:GERD [...] 5 season) 2024 Influenza Vaccine (#1) 2024 RSV Immunization Adult Patie nts (1 - 1-dose 75+ series) 11/03/2051 Pneumococcal Vaccine: Pediat rics (0 to 5 [...]
--- OUTSIDE RECORDS SUMMARY | 2025-01-17 06:08 | XMS_ITS | Patient Health Record ---
Author Organization [facility] Address [address] [facility] [place] [address] Care Team Providers Care Swim Coach Name Role Phone Alexx Baum Primary Care Provider Unavailab Nan Roper Unavailable [phone] Allergies Allergen (clinical drug ingredient) Drug/Non Drug [...] Problem Type II diabetes mellitus without complication ([id number]) Diabetes mellitus without complication (E11.9) Active confirmed Vital Signs Blood pressure diastolic 65 mm Hg 07/05/2024 Height 5ft6in in 07/05/2024 Blood pressure systolic 113 mm Hg 07/05/2024 Weight 198 lbs 07/05/2024 BMI 31.95 kg/m2 07/05/2024 Encounters Encounter Location Date Provider Diagnosis [address] [address] 06/07/2024 Nan Perica Ingrown nail L60.0 ; Diabetes mellitus without complication E11.9 ; Pain in right toe(s) M79.674 and Pain in left toe(s) M79.[address] [address] 07/05/2024 Nan Perica Ingrown nail L60.0 and Diabetes mellitus without complication E11.[address] [address] 03/27/2024 Nan Perica Assessments Encounter Date Diagnosis [...] Inc [address] [place] [address] [id number] Areli Roblesver Self - patient is the insured 7 Medical (General) History Medical History History ICD Code Anxiety asthma Depression Kidney disease Reflux ( GERD) Diabetes mellitus Surgical History Surgery Date(Month/Year) kidney transplant 2020 shoulder replacement Left 2021
--- OUTSIDE RECORDS SUMMARY | 2025-01-17 06:08 | XMS_ITS | Encounter Summary ---
Author Organization [facility] [place], Address [address] [place] [address] Phone Care Team Providers Care Professor Of Business Name Role Phone TejalveronicaNissa Fu DO Primary Care Pro vider Encounter Details Date Type Department Care Team ([facility] Contact Info) Description 05/27/2020 Telephone [facility] [place] [facility] [address] [place] [address] Danna Jain [address] [place] [address] Social History Tobacco Use Types [...] AM EST) Coronavirus COVID-19 PCR NEGATIVE (NEG) [facility] Comment: 2019-novel Coronavirus (2019-nCoV) not detected by real-time RT-PCR. Note: If clinical suspicion for COVID-19 is high, continue to maintain precautions and consider repeat testing. Result reported to the [facility]. To prevent errors in diagnosis, test [...] performed by real time PCR utilizing PAMELA Spectrawatt0 SARS-CoV-2 test. SARS-CoV-2 Source [facility] Comment: Testing performed or reported by [facility], a Service of [facility], [address] [place] [address] Danyel Ponce MD, Sewage Treatment Plant Operator 05/27/2020 11:5 6 AM EST 05/27/2020 2:49 PM EST Christiane Garay MD LAB HISTORICAL-CONVERSIONS- UNSOLICITED RESULTS Final Result [facility] documented in this encounter Visit Diagnoses Not on filedocumented in this encounter Care Teams Professor Of Business Relationship Specialty Start Date End Date Nissa Mckeon DO PCP - General 04/29/20 documented as of this encounter
--- OUTSIDE RECORDS SUMMARY | 2025-01-17 06:08 | XMS_ITS | Encounter Summary ---
Author Organization [facility] [place], Address [address] [place] [address] Phone Care Team Providers Care Environmental Field Office Manager Name Role Phone Nissa Mckeon DO Primary Care Pro vider Encounter Details Date Type Department Care Team ([facility] Contact Info) Description 05/23/2021 Documentation Only [facility] [place], [address] [place] [address] Rob Lagunas MD [address] [place] [address] Social History Tobacco Use Types [...] on filedocumented in this encounter Care Teams Environmental Field Office Manager Relationship Specialty Start Date End Date Nissa Mckeon DO PCP - General 04/29/20 documented as of this encounter
--- OUTSIDE RECORDS SUMMARY | 2025-01-17 06:08 | XMS_ITS | Clinical Summary ---
Author Organization [facility] [place], Address [address] [place] [address] Phone Care Team Providers Care Paste Up Artist Apprentice Name Role Phone Nissa Mckeon DO Primary [...] (04/18/2020): Goes [facility] 2x[facility], as No Support Team Assoc in area will take her as patient [...] 05/31/2017 Insurance Medicare Medicaid [place] Care Teams Paste Up Artist Apprentice Relationship Specialty Start Date End Date Nissa Mckeon DO PCP - General 04/29/20
--- OUTSIDE RECORDS SUMMARY | 2025-01-17 06:08 | XMS_ITS | Encounter Summary ---
Author Organization [facility] [place], Address [address] [place] [address] Phone Care Team Providers Care Head Lineman Name Role Phone Nissa Mckeon DO Primary Care Pro vider Encounter Details Date Type Department Care Team (Late st Contact Info) Description 07/25/2021 Telephone [facility] [place] [facility] [address] [place] [address] Danna Jain [address] [place] [address] Social History Tobacco Use Types [...] on filedocumented in this encounter Care Teams Head Lineman Relationship Specialty Start Date End Date Nissa Mckeon DO PCP - General 04/29/20 documented as of this encounter
--- OUTSIDE RECORDS SUMMARY | 2025-01-17 06:08 | XMS_ITS | Encounter Summary ---
Author Organization [facility] Address [address] [place] [address] Care Team Providers Care Forest Fire Equipment Operator Name Role Phone Marce Alexandre STAN Unavailable [phone] Rob Lagunas MD Unavailable [phone] Eguene Tinoco DO Unavailable [phone] Unknown Primary Care Provider [phone] Encounter Details Date Type Department Care Team (Late st Contact Info) Description 09/27/2018 Telephone [facility] [address] [facility] [address] [place] [address] Ilene Gale [place] Social History Tobacco Use Types Packs/Day Years [...] because the patient requested to see a wholesale account manager. I introduced myself to both the [...] on filedocumented in this encounter Care Teams Forest Fire Equipment Operator Relationship Specialty Start Date End Date Unknown Unknow Provider Address PCP - General 08/20/21 Marce Alexandre APRN [address] [place] [address] Nurse Practitioner Surgery, Transplant 09/26/18 Rob Lagunas MD [address] [place] [address] Referring Provider Nephrology 09/26/18 Eugene Tinoco DO [address] [place] [address] Primary Care Provider Family Medicine 09/26/18 documented as of this encounter
--- OUTSIDE RECORDS SUMMARY | 2025-01-17 06:08 | XMS_ITS | Encounter Summary ---
Author Organization [facility] Address [address] [place] [address] Care Team Providers Care Instrument And Control Service Person Name Role Phone Marce Alexandre APRN Unavailable Rob Lagunas MD Unavailable Alejandrina Eugene DO Unavailable [phone] Unknown Primary Care Provider [phone] Encounter Details Date Type Department Care Team (Late st Contact Info) Description 09/21/2018 Scanned Document [facility] [address] [address] Provider, MD Jason [address] [place] [address] Social History Tobacco Use Types Packs/Day Years [...] on filedocumented in this encounter Care Teams Instrument And Control Service Person Relationship Specialty Start Date End Date Unknown Unknow Provider Address PCP - General 08/20/21 Marce Alexandre APRN [address] [address] Nurse Practitioner Surgery, Transplant 09/26/18 Rob Lagunas MD [address] [place] [address] Referring Provider Nephrology 09/26/18 Eugene Tinoco DO [address] [place] [address] Primary Care Provider Family Medicine 09/26/18 documented as of this encounter
--- OUTSIDE RECORDS SUMMARY | 2025-01-17 06:08 | XMS_ITS | Encounter Summary ---
Author Organization [facility] Address [address] [place] [address] Care Team Providers Care Meat Grinder Name Role Phone Marce Alexandre APRN Unavailable [phone] Rob Lagunas MD Unavailable [phone] Alejandrina Eugene DO Unavailable [phone] Unknown Primary Care Provider [phone] Encounter Details Date Type Department Care Team (Late st Contact Info) Description 09/21/2018 Scanned Document [facility] [address] [address] Provider, MD Jason [address] [place] [address] Social History Tobacco Use Types Packs/Day Years [...] on filedocumented in this encounter Care Teams Meat Grinder Relationship Specialty Start Date End Date Unknown Unknow Provider Address PCP - General 08/20/21 Marce Alexandre APRN [address] [address] Nurse Practitioner Surgery, Transplant 09/26/18 Rob Lagunas MD [address] [place] [address] Referring Provider Nephrology 09/26/18 Eugene Tinoco DO [address] [place] [address] Primary Care Provider Family Medicine 09/26/18 documented as of this encounter
--- OUTSIDE RECORDS SUMMARY | 2025-01-17 06:08 | XMS_ITS | Clinical Summary ---
Author Organization [facility] Address [address] [address] Phone Care Team Providers Care Radio Repairman Name Role Phone Eugene Tinoco DO Primary Care Provider [phone] Allergies Active Allergy Reactions Criticality Noted Date [...] 10:36 AM EST) HCV ANTIBODY Negative Negative [facility] Comment:Antibodies to HCV no t detected. Does not exclude the possibility of exposure to HCV. 06/24/2018 10:3 6 AM EST 06/24/2018 12:44 PM EST us Varun Robles MD LAB BLOOD ORDERABLES Final Result [address] [address] from Last 3 Months or Most Recently Relevant to Health Maintenance [facility] A & B [place] A & B [facility] [place] [address] [facility] MEDIC[facility] PART A & B Member Subscriber Plan / Payer (Ef fective 2007-Present) Name:Dara Robles Member ID:[id number] Relation to Subscriber:Self Name:Dara Robles Subscriber ID:[id number] Payer ID:[id number] Group ID:Not on file Type:Medicare Address: [facility] [employer] [facility] [address] [place], [place] [id number] [place] MEDICARE PART A & [place] [address] [facility] PART A & B [facility] PART A & B [facility] [place] [address] [facility] MEDICARE PART A & B [place] B [place] Care Teams Radio Repairman Relationship Specialty Start Date End Date Eugene Tinoco DO PCP - General Family Medicine 01/31/18 Additional Source Comments The information contained in this document represents components of the legal health record. It is not the complete legal health record.[facility]
--- OUTSIDE RECORDS SUMMARY | 2025-01-17 06:08 | XMS_ITS | Encounter Summary ---
Author Organization [facility] [place], Address [address] [place] [address] Phone Care Team Providers Care Tester Sound Name Role Phone Nissa Mckeon DO Primary Care Pro vider Reason for Visit * Reason Comments Med Refill Encounter Details Date Type Department Care Team (Late st Contact Info) Description 07/16/2020 Refill [facility] [address] [place] [address] Wicho Johnson PA [address] [place] [address] [place] [address] Social History Tobacco Use Types [...] on filedocumented in this encounter Care Teams Tester Sound Relationship Specialty Start Date End Date Nissa Mckeon DO PCP - General 04/29/20 documented as of this encounter
--- OUTSIDE RECORDS SUMMARY | 2025-01-17 06:08 | XMS_ITS | Clinical Summary ---
Author Organization [facility] Address [address] [place] [address] Care Team Providers Care Crop Grain Or Livestock Farmer Name Role Phone Unavailable Primary Care Provider [...] meals. 270 Cap 2 3 Active b qwhfkwf-Y-whzhq acid (NEPHROCAPS) 1 mg per capsuleIndicatio ns:ESRD (end stage renal disease) on dialysis Take 1 Cap by mouth once daily. 30 Cap 4 3 Active loratadine (CLARITIN) 10 mg tabletIndication s:Allergic rhinitis Take 1 Tab by mouth once daily as needed for allergies. Active diphenhydrAMINE (BENADRYL) 50 mg tabletIndication s:ESRD (end stage renal disease) on dialysis Take 1 Tab by mouth as needed. [...] (two) times daily. 15 g Active b mhehzeu-P-vffsf acid (RENAL CAPS) 1 mg per capsuleIndicatio ns:ESRD (end stage renal disease) on dialysis Take 1 Cap by mouth once daily. [...] ESRD (end stage renal disease) on dialysis Overview (01/03/2013): Goes [facility] 2x/week, as No Mail Processor in area will take her as patient due past poor behavior and non-compliance. Eczema ASTHMA MODERATE PERSISTENT Overview (01/02/2013): Tobacco abuse Hyperlipidemia Hidradenitis suppurativa Overview (01/02/2013): Wound care follow up Dr. Mcbride Borderline personality disorder Overview (01/03/2013): Non-compliant with psych f/u. GERD (gastroesophageal reflux disease) Constipation Allergic rhinitis Vulvar candidiasis Right hip pain Immunizations Immunization Administration Dates Next Due Hep B, Adult/Adol ([id number]/RECOMBIVAX-ADULT) 08/09/2008,07/19/2008,03/06/2008 PPD 07/03/2005 Social History Tobacco Use [...]
[2025-01-18 11:48] LABS: Tacrolimus Prograf 4.4 mcg/L
== END 2025-01-17 06:06 | disposition home or self-care (01) ==
LOC: HO.HMGCLDS 06:05
PROVIDERS: PCP Physician Assistant; Visit Provider Internal Medicine Critical Care Medicine
DX: N18.6 End stage renal disease (principal); Z94.0 Kidney transplant status
CPT/HCPCS: 36415; 80197

== ENCOUNTER 2025-01-29 06:12 | Outpatient (REF) | payer MEDICARE, MEDICAID, SELFPAY ==
--- OUTSIDE RECORDS SUMMARY | 2024-07-05 07:30 | XMS_ITS ---
Author Organization [facility] Address [address] [place] [address] Care Team Providers Care Cash Register Operator Name Role Phone Alexx Baum Primary Care Provider Unavailab Nan Roper Unavailable [phone] REASON FOR VISIT Missbooked Encounters Encounter Location Date Provider Diagnosis [facility] [address] [place] [address] 07/05/2024 Nan Phillips Plan Of Treatment No Information Progress Notes * Dara ROBLES RDOB:1975 (49 yo F)Acc No.[id number]:07/05/2024 Progress Note Patient: Dara ABDALLA Provider: Allie Phillips DPM :1975 A ge:48 Y S ex:Female Date:07/05/2024 Address:[address] [place], [place] [phone] Pcp:Alexx Baum Subjective: * Chief Complaints: * [...] 07/05/2024 Generated for Printi ng/Faxing/eTransmitting on: 1 06:15 AM EDT
--- OUTSIDE RECORDS SUMMARY | 2025-01-29 06:15 | XMS_ITS | Clinical Summary ---
Author Organization [facility] Address [address] [address] Phone Care Team Providers Care Hanger Off Name Role Phone Eugene Tinoco DO Primary Care Provider [phone] Allergies Active Allergy Reactions Criticality Noted Date [...] 10:36 AM EST) HCV ANTIBODY Negative Negative [facility] Comment:Antibodies to HCV no t detected. Does not exclude the possibility of exposure to HCV. 06/24/2018 10:3 6 AM EST 06/24/2018 12:44 PM EST us Varun Robles MD LAB BLOOD ORDERABLES Final Result [address] [address] from Last 3 Months or Most Recently Relevant to Health Maintenance [facility] & B [facility] A & B [place] PART A & B [facility] [place] [address] [facility] MEDIC[facility] PART A & B [place]ICARE PART A & [place] [address] [facility] PART A & B [facility] PART A & B [facility] [place] [address] [facility] MEDIC[facility] PART A & B [place] A [place] B [place]ARE PART [place] Care Teams Hanger Off Relationship Specialty Start Date End Date Eugene Tinoco DO PCP - General Family Medicine 01/31/18 Additional Source Comments The information contained in this document represents components of the legal health record. It is not the complete legal health record.[facility]
--- OUTSIDE RECORDS SUMMARY | 2025-01-29 06:15 | XMS_ITS | Encounter Summary ---
Author Organization [facility], Address [address] [place] [address] Phone Care Team Providers Care Clay Artist Name Role Phone TejalveronicaNissa Fu DO Primary Care Pro vider Encounter Details Date Type Department Care Team ([facility] Contact Info) Description 05/27/2020 Telephone [facility] [address] [place] [address] Danna Jain [address] [place] [address] Social History Tobacco Use Types [...] AM EST) Coronavirus COVID-19 PCR NEGATIVE (NEG) [facility] Comment: 2019-novel Coronavirus (2019-nCoV) not detected by real-time RT-PCR. Note: If clinical suspicion for COVID-19 is high, continue to maintain precautions and consider repeat testing. Result reported to the [facility]. To prevent errors in diagnosis, [...] performed by real time PCR utilizing PAMELA Jackpocket0 SARS-CoV-2 test. SARS-CoV-2 Source [facility] Comment: Testing performed or reported by [facility], a Service of [facility], [address] [place] [address] Danyel Ponce MD, Administrative Support Specialist 05/27/2020 11:5 6 AM EST 05/27/2020 2:49 PM EST Christiane Garay MD LAB HISTORICAL-CONVERSIONS- UNSOLICITED RESULTS Final Result [facility] documented in this encounter Visit Diagnoses Not on filedocumented in this encounter Care Teams Clay Artist Relationship Specialty Start Date End Date Nissa Mckeon DO PCP - General 04/29/20 documented as of this encounter
--- OUTSIDE RECORDS SUMMARY | 2025-01-29 06:15 | XMS_ITS | Clinical Summary ---
Author Organization [facility] Address [address] [place] [address] Care Team Providers Care Personal Chef Name Role Phone Unavailable Primary Care Provider [...] meals. 270 Cap 2 3 Active b vbtwhjj-I-exadt acid (NEPHROCAPS) 1 mg per capsuleIndicatio ns:ESRD [...] (two) times daily. 15 g Active b rsnepdo-D-aamfi acid (RENAL CAPS) 1 mg per capsuleIndicatio [...] [facility] 2x[facility]week, as No Manager Gyn in area will take her as patient due past poor behavior and non-compliance. Eczema ASTHMA MODERATE PERSISTENT Overview (01/02/2013): Tobacco abuse Hyperlipidemia Hidradenitis suppurativa Overview (01/02/2013): Wound care follow up Dr. Mcbride Borderline personality disorder Overview (01/03/2013): Non-compliant with psych f/u. GERD (gastroesophageal reflux disease) Constipation Allergic rhinitis Vulvar candidiasis Right hip pain Immunizations Immunization Administration Dates Next Due Hep B, Adult/Adol ([id number]/RECOMBIVAX-ADULT) 08/09/2008,07/19/2008,03/06/2008 PPD 07/03/2005 Social History Tobacco Use Types Packs/Day Years Used Date Smoking Tobacco: Never Assessed Comments Unknown Sex and Gender Information Value Date Recorded Sex Assigned at Not on file Legal Sex Female 11:36 AM PDT Gender Identity Not on file Sexual Orientation Not on file Plan of Treatment Not on file Insurance [place] - [place]
--- OUTSIDE RECORDS SUMMARY | 2025-01-29 06:15 | XMS_ITS | Encounter Summary ---
Author Organization [facility] Address [address] [place] [address] Care Team Providers Care Electrical Line Mechanic Name Role Phone Marce Alexandre APRN Unavailable [phone] Rob Lagunas MD Unavailable [phone] Alejandrina Eugene DO Unavailable [phone] Unknown Primary Care Provider [phone] Encounter Details Date Type Department Care Team (Late st Contact Info) Description 09/21/2018 Scanned Document [facility] [address] [address] Provider, MD Jason [address] [place] [address] Social History Tobacco Use Types Packs/Day Years [...] on filedocumented in this encounter Care Teams Electrical Line Mechanic Relationship Specialty Start Date End Date Unknown Unknow Provider Address PCP - General 08/20/21 Marce Alexandre APRN [address] [address] Nurse Practitioner Surgery, Transplant 09/26/18 Rob Lagunas MD [address] [place] [address] Referring Provider Nephrology 09/26/18 Eugene Tinoco DO [address] [place] [address] Primary Care Provider Family Medicine 09/26/18 documented as of this encounter
--- OUTSIDE RECORDS SUMMARY | 2025-01-29 06:15 | XMS_ITS | Encounter Summary ---
Author Organization [facility] [place], Address [address] [place] [address] Phone Care Team Providers Care School Curriculum Developer Name Role Phone Nissa Mckeon DO Primary Care Pro vider Reason for Visit * Reason Comments Med Refill Encounter Details Date Type Department Care Team (Late st Contact Info) Description 07/16/2020 Refill [facility] [address] [place] [address] Wicho Johnson PA [address] [place] [address] [place] [address] Social History Tobacco Use Types [...] on filedocumented in this encounter Care Teams School Curriculum Developer Relationship Specialty Start Date End Date Nissa Mckeon DO PCP - General 04/29/20 documented as of this encounter
--- OUTSIDE RECORDS SUMMARY | 2025-01-29 06:15 | XMS_ITS | Encounter Summary ---
Author Organization [facility] [place], Address [address] [place] [address] Phone Care Team Providers Care Hand Fabric Cutter Name Role Phone Nissa Mckeon DO Primary Care Pro vider Encounter Details Date Type Department Care Team ([facility] Contact Info) Description 05/23/2021 Documentation Only [facility] [place], [address] [place] [address] Rob Lagunas MD [address] [place] [address] Social History Tobacco Use Types [...] on filedocumented in this encounter Care Teams Hand Fabric Cutter Relationship Specialty Start Date End Date Nissa Mckeon DO PCP - General 04/29/20 documented as of this encounter
--- OUTSIDE RECORDS SUMMARY | 2025-01-29 06:15 | XMS_ITS | Encounter Summary ---
Author Organization [facility] [place], Address [address] [place] [address] Phone Care Team Providers Care Machine Package Sealer Name Role Phone Nissa Mckeon DO Primary Care Pro vider Reason for Visit * Reason Comments Med Refill Encounter Details Date Type Department Care Team (Late st Contact Info) Description 07/17/2019 Refill [facility] [address] [place] [address] Wicho Johnson PA [address] [place] [address] Social History Tobacco Use Types [...] on filedocumented in this encounter Care Teams Machine Package Sealer Relationship Specialty Start Date End Date Nissa Mckeon DO PCP - General 04/29/20 documented as of this encounter
--- OUTSIDE RECORDS SUMMARY | 2025-01-29 06:15 | XMS_ITS | Encounter Summary ---
Author Organization [facility] [place], Address [address] [place] [address] Phone Care Team Providers Care Repairer Switchgear Name Role Phone Nissa Mckeon DO Primary Care Pro vider Encounter Details Date Type Department Care Team (Late st Contact Info) Description 07/25/2021 Telephone [facility] [address] [place] [address] Danna Jain [address] [place] [address] Social History Tobacco Use Types [...] on filedocumented in this encounter Care Teams Repairer Switchgear Relationship Specialty Start Date End Date Nissa Mkceon DO PCP - General 04/29/20 documented as of this encounter
--- OUTSIDE RECORDS SUMMARY | 2025-01-29 06:15 | XMS_ITS | Encounter Summary ---
Author Organization [facility] Address [address] [place] [address] Care Team Providers Care Tip Inserter Name Role Phone Marce Alexandre APRN Unavailable [phone] Rob Lagunas MD Unavailable Alejandrina Eugene DO Unavailable [phone] Unknown Primary Care Provider [phone] Encounter Details Date Type Department Care Team (Late st Contact Info) Description 09/21/2018 Scanned Document [facility] [address] [address] Provider, MD Jason [address] [place] [address] Social History Tobacco Use Types Packs/Day Years [...] on filedocumented in this encounter Care Teams Tip Inserter Relationship Specialty Start Date End Date Unknown Unknow Provider Address PCP - General 08/20/21 Marce Alexandre APRN [address] [address] Nurse Practitioner Surgery, Transplant 09/26/18 Rob Lagunas MD [address] [place] [address] Referring Provider Nephrology 09/26/18 Eugene Tinoco DO [address] [place] [address] Primary Care Provider Family Medicine 09/26/18 documented as of this encounter
--- OUTSIDE RECORDS SUMMARY | 2025-01-29 06:15 | XMS_ITS | Clinical Summary ---
Author Organization [facility] [place], Address [address] [place] [address] Phone Care Team Providers Care Locomotive Pipe Fitter Name Role Phone Nissa Mckeon DO Primary Care Pro vider Active Problems Problem Noted Date Diagnosed Date Social problem not due to a mental disorder 03/21 Sleep apnea 04/18/2020 Sepsis caused by Staphylococcus aureus 0 Postprocedural blebitis 04/18/2020 Pneumonia 04/18/2020 Pain of right hip joint 04/18/2020 Osteoarthritis 04/18/2020 Nephrotic syndrome, focal and segmental glomerul ar lesions 04/18/2020 Iron deficiency anemia 04/18/2020 Interstitial pulmonary disease 04/18/2020 Hypoparathyroidism 04/18/2020 Hypervolemia 04/18/2020 End stage renal failure on dialysis 04/18/2020 Overview (04/18/2020): [facility], as No Shut Off Worker in area will take her as patient [...] 05/31/2017 Insurance Medicare Medicaid [place] Care Teams Locomotive Pipe Fitter Relationship Specialty Start Date End Date Nissa Mckeon DO PCP - General 04/29/20
--- OUTSIDE RECORDS SUMMARY | 2025-01-29 06:15 | XMS_ITS | Encounter Summary ---
Author Organization [facility] Address [address] [place] [address] Care Team Providers Care News Content Specialist Name Role Phone Marce Alexandre APRN Unavailable Rob Lagunas MD Unavailable [phone] Alejandrina Eugene DO Unavailable [phone] Primary Care Provider [phone] Encounter Details Date Type Department Care Team (Late st Contact Info) Description 09/28/2018 Scanned Document [facility] [address] [address] Provider, MD Jason [address] [place] [address] Social History Tobacco Use Types Packs/Day Years [...] on filedocumented in this encounter Care Teams News Content Specialist Relationship Specialty Start Date End Date Unknown Unknow Provider Address PCP - General 08/20/21 Marce Alexandre APRN [address] [address] Nurse Practitioner Surgery, Transplant 09/26/18 Rob Lagunas MD [address] [place] [address] Referring Provider Nephrology 09/26/18 Eugene Tinoco DO [address] [place] [address] Primary Care Provider Family Medicine 09/26/18 documented as of this encounter
--- OUTSIDE RECORDS SUMMARY | 2025-01-29 06:15 | XMS_ITS | Encounter Summary ---
Author Organization [facility] Address [address] [place] [address] Care Team Providers Care Sea Foam Kiss Maker Name Role Phone Marce Alexandre APRN Unavailable Rob Lagunas MD Unavailable Eugene Tinoco DO Unavailable [phone] Unknown Primary Care Provider [phone] Encounter Details Date Type Department Care Team (Late st Contact Info) Description 09/27/2018 Scanned Document [facility] [address] [address] Rohini Hairston [place] [address] [address] Social History Tobacco Use Types Packs/Day Years [...] on filedocumented in this encounter Care Teams Sea Foam Kiss Maker Relationship Specialty Start Date End Date Unknown Unknow Provider Address PCP - General 08/20/21 Marce Alexandre APRN [address] [address] Nurse Practitioner Surgery, Transplant 09/26/18 Rob Lagunas MD [facility] [place] [address] Referring Provider Nephrology 09/26/18 Eugene Tinoco DO [address] [place] [address] Primary Care Provider Family Medicine 09/26/18 documented as of this encounter
--- OUTSIDE RECORDS SUMMARY | 2025-01-29 06:15 | XMS_ITS | Encounter Summary ---
Author Organization [facility], Address [address] [place] [address] Phone Care Team Providers Care Glass Beveler Name Role Phone Nissa Mckeon DO Primary Care Pro vider Encounter Details Date Type Department Care Team ([facility] Contact Info) Description 04/29/2021 Documentation Only [facility], [address] [place] [address] Rob Lagunas MD [address] [place] [address] Social History Tobacco Use Types [...] on filedocumented in this encounter Care Teams Glass Beveler Relationship Specialty Start Date End Date Nissa Mckeon DO PCP - General 04/29/20 documented as of this encounter
--- OUTSIDE RECORDS SUMMARY | 2025-01-29 06:15 | XMS_ITS | Clinical Summary ---
Author Organization [facility] Address [address] [place] [address] Care Team Providers Care Paper Coating Machine Operator Name Role Phone Marce Alexandre STAN Unavailable [phone] Rob Lagunas MD Unavailable [phone] Eugene Tinoco DO Unavailable [phone] Unknown Primary Care Provider [phone] Allergies Active Allergy Reactions Criticality Noted Date [...] A & B MEDICAID OUT OF STATE [facility] [place] [address] MEDICARE PART A & B MEDICAID OUT OF STATE [facility] Care Teams Paper Coating Machine Operator Relationship Specialty Start Date End Date Unknown Unknow Provider Address PCP - General 08/20/21 Marce Alexandre APRN [address] [place] [address] Nurse Practitioner Surgery, Transplant 09/26/18 Rob Lagunas MD [address] [place] [address] Referring Provider Nephrology 09/26/18 Eugene Tinoco DO [address] [place] [address] Primary Care Provider Family Medicine 09/26/18
--- OUTSIDE RECORDS SUMMARY | 2025-01-29 06:15 | XMS_ITS | Clinical Summary ---
Author Organization [facility] Address [address] [place] [address] Care Team Providers Care Analog Design Engineer Name Role Phone Unavailable Primary Care Provider Unavailabl e Surgical History Surgery Date Site/Laterality Comments OTHER SURGICAL HISTORY PROCEDURE: AV FISTULA OR GRAFT ARTERIAL PARATHYROIDECTOMY PROCEDURE: HISTORICAL PARATHYROIDECTOMY OTHER SURGICAL HISTORY PROCEDURE: [place] PRTL THYROID LOBECTOMY UNI W/WO ISTHMUSECTOMY Medical History Medical History Date Comments HTN (hypertension) DX:HTN (hyper tension) ESRD (end stage renal diseas e) ([facility] V24, [facility] V28) DX:ESRD (end stage renal dis ease) ([facility]); COMMENT: hd at [facility] er/icu; babu Anxiety DX:Anxiety Depression DX:Depression Bipolar disorder ([facility] V2 4, [facility] V28) DX:Bipolar disorder ([facility]); C OMMENT: [facility] therapist Secondary hyperparathyroidis m ([facility] V24) DX:Secondary hyperparathyroi dism ([facility]) Asthma DX:Asthma Tobacco use DX:Tobacco use Hidradenitis suppurativa DX:Hidr adenitis suppurativa History of substance abuse ( [facility] V24, [facility] V28) DX:History of substance abus e ([facility]) GERD (gastroesophageal reflux disease) DX:GERD [...] complete this topic RSV Immunization Patients Un rosyln 20 months Aged Out No longer eligible b ased on patient's age to complete this topic Varicella Vaccines Aged Out No longer eligible based on patient's age to complete this topic
--- OUTSIDE RECORDS SUMMARY | 2025-01-29 06:15 | XMS_ITS | Encounter Summary ---
Author Organization [facility] Address [address] [place] [address] Care Team Providers Care Machine Feller Name Role Phone Marce Alexandre STAN Unavailable [phone] Rob Lagunas MD Unavailable [phone] Eugene Tinoco DO Unavailable [phone] Unknown Primary Care Provider [phone] Encounter Details Date Type Department Care Team (Late st Contact Info) Description 09/27/2018 Telephone [facility] Transplant Program & [facility] 85 [facility] [address] [place] [address] Ilene Gale [place] Social History Tobacco Use Types Packs/Day Years [...] because the patient requested to see a manager landscape. I introduced myself to both the patient [...] filedocumented in this encounter Care Teams Machine Feller Relationship Specialty Start Date End Date Unknown Unknow Provider Address PCP - General 08/20/21 Marce Alexandre APRN [address] [place] [address] Nurse Practitioner Surgery, Transplant 09/26/18 Rob Lagunas MD [address] [place] [address] Referring Provider Nephrology 09/26/18 Eugene Tinoco DO [address] [place] [address] Primary Care Provider Family Medicine 09/26/18 documented as of this encounter
--- OUTSIDE RECORDS SUMMARY | 2025-01-29 06:15 | XMS_ITS | Encounter Summary ---
Author Organization [facility] Address [address] [place] [address] Care Team Providers Care Broadcast Engineer Name Role Phone Marce Alexandre APRN Unavailable [phone] Rob Lagunas MD Unavailable [phone] Eugene Tinoco DO Unavailable [phone] Unknown Primary Care Provider [phone] Encounter Details Date Type Department Care Team (Late st Contact Info) Description 09/29/2018 Scanned Document [facility] [address] [address] Keke [place] [address] [address] Social History Tobacco Use Types Packs/Day Years [...] on filedocumented in this encounter Care Teams Broadcast Engineer Relationship Specialty Start Date End Date Unknown Unknow Provider Address PCP - General 08/20/21 Marce Alexandre APRN [address] [address] Nurse Practitioner Surgery, Transplant 09/26/18 Rob Lagunas MD [address] [place] [address] Referring Provider Nephrology 09/26/18 Eugene Tinoco DO [address] [place] [address] Primary Care Provider Family Medicine 09/26/18 documented as of this encounter
--- OUTSIDE RECORDS SUMMARY | 2025-01-29 06:15 | XMS_ITS | Clinical Summary ---
Author Organization [employer] [facility] Address [address] [place] [address] Care Team Providers Care Foam Machine Operator Name Role Phone Unavailable Primary Care Provider Unavailabl e Social History Tobacco Use Types Packs/Day Years Used Date Smoking Tobacco: Never Assessed Sex and Gender Information Value Date Recorded Sex Assigned at Not on file Gender Identity Not on file Sexual Orientation Not on file Plan of Treatment Not on file
--- OUTSIDE RECORDS SUMMARY | 2025-01-29 06:15 | XMS_ITS | Encounter Summary ---
Author Organization [facility] Address [address] [place] [address] Care Team Providers Care Worm Farmer Name Role Phone Marce Alexandre APRN Unavailable Rob Lagunas MD Unavailable Alejandrina Eugene DO Unavailable [phone] Unknown Primary Care Provider [phone] Encounter Details Date Type Department Care Team (Late st Contact Info) Description 08/19/2018 Scanned Document [facility] [address] [address] Provider, MD Jason [address] [place] [address] Social History Tobacco Use Types Packs/Day Years [...] on filedocumented in this encounter Care Teams Worm Farmer Relationship Specialty Start Date End Date Unknown Unknow Provider Address PCP - General 08/20/21 Marce Alexandre APRN [address] [address] Nurse Practitioner Surgery, Transplant 09/26/18 Rob Lagunas MD [address] [place] [address] Referring Provider Nephrology 09/26/18 Eugene Tinoco DO [address] [place] [address] Primary Care Provider Family Medicine 09/26/18 documented as of this encounter
--- OUTSIDE RECORDS SUMMARY | 2025-01-29 06:15 | XMS_ITS | Patient Health Record ---
Author [facility] Address [address] [facility] [place] [address] Care Team Providers Care Mill Roll Operator Name Role Phone Alexx Baum Primary Care Provider Unavailab Nan Roper Unavailable [phone] Allergies Allergen (clinical drug ingredient) Drug/Non Drug [...] Active tramadol Tramadol Unknown Drug Allergy Active Reason For Referral No Information Medications Medication [...] Problem Type II diabetes mellitus without complication ([id number]) Diabetes mellitus without complication (E11.9) Active confirmed Vital Signs Blood pressure diastolic 65 mm Hg 07/05/2024 Height 5ft6in in 07/05/2024 Blood pressure systolic 113 mm Hg 07/05/2024 Weight 198 lbs 07/05/2024 BMI 31.95 kg/m2 07/05/2024 Encounters Encounter Location Date Provider Diagnosis [address] [address] 06/07/2024 Nan Perica Ingrown nail L60.0 ; Diabetes mellitus without complication E11.9 ; Pain in right toe(s) M79.674 and Pain in left toe(s) M79.[address] [address] 07/05/2024 Nan Perica Ingrown nail L60.0 and Diabetes mellitus without complication E11.[address] [address] 03/27/2024 Nan Perica Assessments Encounter Date Diagnosis [...] Inc [address] [place] [address] [id number] Areli Roblesver Self - patient is the insured 7 Medical (General) History Medical History History ICD Code Anxiety asthma Depression Kidney disease Reflux ( GERD) Diabetes mellitus Surgical History Surgery Date(Month/Year) kidney transplant 2020 shoulder replacement Left 2021
== END 2025-01-29 06:13 | disposition home or self-care (01) ==
LOC: HO.HMGCLDS 06:12
PROVIDERS: PCP Physician Assistant; Visit Provider Internal Medicine Critical Care Medicine
DX: Z13.89 Encounter for screening for other disorder (principal)

== ENCOUNTER 2025-01-30 12:24 | Outpatient (AMB) | payer MEDICARE, MEDICAID, SELFPAY ==
--- OUTSIDE RECORDS SUMMARY | 2024-07-05 07:30 | XMS_ITS ---
Author Organization [facility] Address [address] [place] [address] Care Team Providers Care Graduate Nurse Name Role Phone Alexx Baum Primary Care Provider Unavailab Nan Roper Unavailable [phone] REASON FOR VISIT Missbooked Encounters Encounter Location Date Provider Diagnosis [facility] [address] [place] [address] 07/05/2024 Nan Phillips Plan Of Treatment No Information Progress Notes * Dara ROBLES RDOB:1975 (49 yo F)Acc No.[id number]:07/05/2024 Progress Note Patient: Dara ABDALLA Provider: Allie Phillips DPM :1975 A ge:48 Y S ex:Female Date:07/05/2024 Address:[address] [place], [place] [phone] Pcp:Alexx Baum Subjective: * Chief Complaints: * [...] 0 07/05/2024 Generated for Printi ng/Faxing/eTransmitting on: 03:05 PM EDT
[2025-01-30 12:25] VITALS: BP 120/78; PULSE 87; O2SAT 97
--- NOTE | 2025-01-30 12:25 | HO.NEPHOV ---
Vital Signs 01/30/25 12:25 Height 5 ft 6 in BP 120/78 Blood Pressure Location Lt brachial Position Sitting Pulse 87 Pulse Source Pulse Oximeter Pulse Oximetry (%) 97 Oxygen Delivery Method Room Air Intake Visit Reasons: f/u Beam Department Supervisor Required: No Accompanied by: Self / Same As Patient Allergies lisinopril (LISINOPRIL) Allergy (Intermediate, Verified 01/30/25 12:26) EYES SWELL SHUT, angioedema, angioedema tramadol (TRAMADOL) Allergy (Intermediate, Verified 01/30/25 12:26) HIVES piperacillin (Zosyn) Allergy (Mild, Verified 01/30/25 12:26) rash cefazolin Allergy (Unknown, Verified 01/30/25 12:26) Unknown hydrocodone (From VICODIN) Allergy (Unknown, Verified 01/30/25 12:26) UNKNOWN ibuprofen (From Motrin) Allergy (Unknown, Verified 01/30/25 12:26) Unknown shellfish derived Allergy (Unknown, Verified 01/30/25 12:26) Unknown Sulfa (Sulfonamide Antibiotics) (SULFA (SULFONAMIDE ANTIBIOTICS)) Allergy (Unknown, Verified 01/30/25 12:26) UNKNOWN vancomycin Allergy (Unknown, Verified 01/30/25 12:26) rash azithromycin Adverse Reaction (Intermediate, Verified 01/30/25 12:26) dizziness/AVERY HPI Comments Details: 48-year-old lady with past medical history of ESRD secondary to hypertension related atherosclerotic vascular disease who was on dialysis for over 12 years is status post living donor/ disease donor kidney transplant in 09/2020 received donor kidney with KDPI 49% her pre transplant cPRA was 0, EPTS was 22. Donor CMV: + Recipient CMV: + (low risk). She last saw a transplant strategic communications manager in [place] in Jan 2024, and was discharged from service. September 2024: tacrolimus levels increased to 9.3 and creatinine increased from 1.28 to 1.61. October 2024: after decreasing the tacrolimus levels to 7mg BID, levels down to 7.4 and creatinine improved to 1.20. No new complaints this visits except for has vaginal candidiasis. Made her aware that thiazoles can increase her tacrolimus levels, she states she is only using mucosal and local agents and not taking anything oral. Rest she is doing well, enjoying fishing and going to [employer]. November 2024: She was treated with Metrogyl 500mg BID for 7 days and finished on 11/15 and labs on 11/18/2024 showed creatinine increasing to 1.38 and tacrolimus levels 10.4. December 2024: She took a dose of fluconazole, received Flagyl for 5 days. Currently she is on 3 mg 2 times a day for off tacrolimus and levels are 4.4. Continues to have vaginosis symptoms PFSH Medical History History of pulmonary embolism Chronic kidney disease Ankylosing spondylitis of lumbar region Right lumbar radiculopathy Surgical History S/P kidney transplant Status post dialysis Hx of bilateral breast reduction surgery Family History Mother No problems noted. Father No problems noted. Brother Substance abuse Social History Household Members: None Housing: Apartment Are you a primary healthcare network consultant to a significant other at home: No Do you presently have visiting nurse or other home services: No Alcohol intake: never Patient Tobacco Use Status: Former Tobacco user Years Smoked: 15 e-Cigarette/Vaping Use: Never Used Second Hand Smoke Exposure: Yes Advance Directives Date on File: 02/26/20 service: No Current occupational status: disabled Gender identity: Female Cognitive needs: No Hearing needs: No Vision needs: Yes (Glasses) Female Reproductive History Menstrual Age of Menarche: 17 Review of Systems Const Details: Const : no body aches, no chills, no excessive sweating and no fatigue Eyes: no blurry vision and no change in vision ENT: no bleeding gums and no change in voice, no dizziness Card: no chest pain, no shortness of breath, no orthopnea, no PND Resp: no cough, no excessive phlegm production, no SOB GI: no abdominal pain and no nausea, no vomiting : no hematuria, no urinary frequency and no difficulty voiding Musc: no abnormal gait, no bone pain Neuro: no abnormal movements, no weakness, no dizziness, no abnormal gait and no behavioral changes Psych: no behavioral changes and no change in appetite Endo: no change in body appearance, no cold intolerance, no excessive sweating and no fatigue Physical Exam Vital Signs: Last Vital Signs Pulse 87 01/30/25 12:25 BP 120/78 01/30/25 12:25 Pulse Ox 97 01/30/25 12:25 Oxygen Delivery Method Room Air 01/30/25 12:25 General: not in any acute distress, comfortable, sitting on the chair Nutritional Appearance: well nourished and weight Eyes: normal position, no icterus Neck: No lymphadenopathy, no thyromegaly Resp: bilateral air entry equal, no added sounds present Cardio: normal S1, S2 heard, no murmur heard GI: soft, nontender, no guarding, no hepatosplenomegaly : bladder normal to inspection, bladder normal to palpation, no renal angle tenderness Skin: no rashes or lesions noted and elasticity normal Neuro: oriented to person, oriented to place, oriented to time and moves all extremities Results Reviewed Nephrology Results: Hgb, (12.0-16.0) 13.7 g/dl 11/18/24 WBC, (4.8-10.8) 4.5 X10*3/uL L 11/18/24 Plt Count, (160-400) 288 X10*3/uL 11/18/24 Sodium, (135-145) 140 mmol/L 01/15/25 Potassium, (3.3-5.1) 3.4 mmol/L 01/15/25 Chloride, (96-108) 111 mmol/L H 01/15/25 Carbon Dioxide, (22-29) 20 mmol/L L 01/15/25 BUN, (9-16) 16 mg/dL 01/15/25 Creatinine, (0.5-1.4) 1.19 mg/dL 01/15/25 Calcium, (8.4-10.2) 8.9 mg/dL 01/15/25 Urine Protein, (Neg-Trace) Trace mg/dL 11/23/24 Urine Creatinine 101.60 mg/dL 11/23/24 Assessment & Plan Assessment & Plan (1) S/P kidney transplant: Comment: post op complication, clots removed kidney surface Code(s): Z94.0 - Kidney transplant status Category: Surgical (2) ESRD (end stage renal disease): Code(s): N18.6 - End stage renal disease Category: Medical (3) Vaginal discharge: Code(s): N89.8 - Other specified noninflammatory disorders of vagina Category: Medical (4) Hypertension: Code(s): I10 - Essential (primary) hypertension Category: Medical Plan 54 F who is s/p living donor/ disease donor kidney transplant in 09/2020 received donor kidney with KDPI 49% , her pre transplant cPRA was 0, EPTS was 22 . Donor CMV: + Recipient CMV: + (low risk) Primary disease: hypertensive atherosclerotic vascular disease Graft function: stable Creatinine increases with rising tacrolimus levels, most recent creatinine 1.19 we will repeat BMP and tacrolimus levels and will adjust accordingly Urinalysis showed: 1+ protein will quantify with UACR/ UPCR: 50.2 and 198 Immunosuppression: Patient is currently on- tacrolimus 3mg AM BID , tac level 4.4 (tacrolimus goal 4-8). Will recheck levels tomorrow and adjust dose accordingly. CellCept: 500mg BID taken off prednisone 5mg since due to weight gain. Infections: post transplant needed wound vac for 2 months, none since 2021. hepatitis panel, HIV negative in 06/2024. Prophylaxis: BK/CMV negative in 10/11; monitor every 3-6 months. Vaccinations: Pneumococcal, Shingrix, Hepatitis B shot, COVID 19- received all of them normal anion gap metabolic acidosis: bicarb 20, possibly due to tacrolimus improved after bicitra, she doesnt like the taste so advised her she can substitute with fresh squeezed lemonade. Hypertension:120/70 today Blood pressure well-controlled Continue amlodipine 10mg. lipid panel normal in 10/11 HbA1c 5.6 on 11/05/2024, on Monjauro. Bacterial vaginosis: She was treated with Flagyl for bacterial vaginosis 2 times in the past 3 or 4 months. Now she has Janae glabrata in her culture which needs to be treated. We will call her OBGYN at [facility] in [place], we will adjust the dose of tacrolimus to help her get Diflucan if needed Reinforced the importance of medication adherence, infection precautions and hand hygiene. Reviewed signs of rejection/infection Advised to avoid NSAIDs, monitor blood pressure and weight closely. We will repeat labs tomorrow in the morning and we will give her a call. Orders: Orders Tacrolimus Prograf Today N18.6 - End stage renal disease, N89.8 - Other specified noninflammatory disorders of vagina, Z94.0 - Kidney transplant status Basic Metabolic Panel Today N18.6 - End stage renal disease, N89.8 - Other specified noninflammatory disorders of vagina, Z94.0 - Kidney transplant status UA and rflx microscopic Today N18.6 - End stage renal disease, N89.8 - Other specified noninflammatory disorders of vagina, Z94.0 - Kidney transplant status Microalbumin, Random (w Creat) Today N18.6 - End stage renal disease, N89.8 - Other specified noninflammatory disorders of vagina, Z94.0 - Kidney transplant status Coding Level of Care Code Est Pt Level 4 (87174) Diagnoses S/P kidney transplant Z94.0 ESRD (end stage renal disease) N18.6 Vaginal discharge N89.8 Hypertension I10
--- OUTSIDE RECORDS SUMMARY | 2025-01-30 15:06 | XMS_ITS | Clinical Summary ---
Author Organization [facility] Address [address] [place] [address] Care Team Providers Care Boilermaker Pipe Fitter Name Role Phone Unavailable Primary Care Provider [...] meals. 270 Cap 2 3 Active b vpumvnb-H-rxcxo acid (NEPHROCAPS) 1 mg per capsuleIndicatio ns:ESRD [...] (two) times daily. 15 g Active b ykkszpg-P-pznit acid (RENAL CAPS) 1 mg per capsuleIndicatio [...] renal disease) on dialysis Overview (01/03/2013): Goes [facility], as No Marketing And Public Relations Manager in area will take her as patient due past poor behavior and non-compliance. Eczema ASTHMA MODERATE PERSISTENT Overview (01/02/2013): Tobacco abuse Hyperlipidemia Hidradenitis suppurativa Overview (01/02/2013): Wound care follow up Dr. Mcbride Borderline personality disorder Overview (01/03/2013): Non-compliant with psych f/u. GERD (gastroesophageal reflux disease) Constipation Allergic rhinitis Vulvar candidiasis Right hip pain Immunizations Immunization Administration Dates Next Due Hep B, Adult/Adol (JGWUYMO-L-IPUTO/RECOMBIVAX-ADULT) 08/09/2008,07/19/2008,03/06/2008 PPD 07/03/2005 Social History Tobacco Use Types Packs/Day Years Used Date Smoking Tobacco: Never Assessed Comments Unknown Sex and Gender Information Value Date Recorded Sex Assigned at Not on file Legal Sex Female 11:36 AM PDT Gender Identity Not on file Sexual Orientation Not on file Plan of Treatment Not on file Insurance [place]
--- OUTSIDE RECORDS SUMMARY | 2025-01-30 15:06 | XMS_ITS | Clinical Summary ---
Author Organization [facility] Address [address] [place] [address] Care Team Providers Care Blue Leather Setter Name Role Phone Unavailable Primary Care Provider Unavailabl e Surgical History Surgery Date Site/Laterality Comments OTHER SURGICAL HISTORY PROCEDURE: AV FISTULA OR GRAFT ARTERIAL PARATHYROIDECTOMY PROCEDURE: HISTORICAL PARATHYROIDECTOMY OTHER SURGICAL HISTORY PROCEDURE: [place] PRTL THYROID LOBECTOMY UNI W/WO ISTHMUSECTOMY Medical History Medical History Date Comments HTN (hypertension) DX:HTN (hyper tension) ESRD (end stage renal diseas e) ([facility] V24, [facility] V28) DX:ESRD (end stage renal dis ease) ([facility]); COMMENT: hd at [facility] er/icu; babu Anxiety DX:Anxiety Depression DX:Depression Bipolar disorder ([facility] V2 4, [facility] V28) DX:Bipolar disorder ([facility]); C OMMENT: [facility] Secondary hyperparathyroidis m ([facility] V24) DX:Secondary hyperparathyroi dism ([facility]) Asthma DX:Asthma Tobacco use DX:Tobacco use Hidradenitis suppurativa DX:Hidr adenitis suppurativa History of substance abuse ( [facility] V24, [facility] V28) DX:History of substance abus e ([facility]) GERD (gastroesophageal reflux disease) DX:GERD (gastroesophageal reflux [...]
--- OUTSIDE RECORDS SUMMARY | 2025-01-30 15:06 | XMS_ITS | Encounter Summary ---
Author Organization [facility], Address [address] [place] [address] Phone Care Team Providers Care Meat Market Manager Name Role Phone Nissa Mckeon DO Primary Care Pro vider Encounter Details Date Type Department Care Team ([facility] Contact Info) Description 05/23/2021 Documentation Only [facility], [address] [place] [address] Rob Lagunas MD [address] [place] [address] Social History Tobacco Use Types [...] filedocumented in this encounter Care Teams Meat Market Manager Relationship Specialty Start Date End Date Nissa Mckeon DO PCP - General 04/29/20 documented as of this encounter
--- OUTSIDE RECORDS SUMMARY | 2025-01-30 15:06 | XMS_ITS | Encounter Summary ---
Author Organization [facility] [place], Address [address] [place] [address] Phone Care Team Providers Care Mems Engineer Name Role Phone Nissa Mckeon DO Primary Care Pro vider Encounter Details Date Type Department Care Team ([facility] Contact Info) Description 04/29/2021 Documentation Only [facility], [address] [place] [address] Rob Lagunas MD [address] [place] [address] Social History Tobacco Use Types [...] on filedocumented in this encounter Care Teams Mems Engineer Relationship Specialty Start Date End Date Nissa Mckeon DO PCP - General 04/29/20 documented as of this encounter
--- OUTSIDE RECORDS SUMMARY | 2025-01-30 15:06 | XMS_ITS | Encounter Summary ---
Author Organization [facility] [place], Address [address] [place] [address] Phone Care Team Providers Care Automotive Specialty Technician Name Role Phone Nissa Mckeon DO Primary Care Pro vider Encounter Details Date Type Department Care Team (Late st Contact Info) Description 07/25/2021 Telephone [facility] [address] [place] [address] Danna Jain [address] [place] [address] Social History Tobacco Use Types [...] on filedocumented in this encounter Care Teams Automotive Specialty Technician Relationship Specialty Start Date End Date Nsisa Mckeon DO PCP - General 04/29/20 documented as of this encounter
--- OUTSIDE RECORDS SUMMARY | 2025-01-30 15:08 | XMS_ITS | Clinical Summary ---
Author Organization [facility] Address [address] [place] [address] Care Team Providers Care Supervisor Mold Construction Name Role Phone Marce Alexandre STAN Unavailable [phone] Rob Lagunas MD Unavailable [phone] Eugene Tinoco DO Unavailable [phone] Unknown Primary Care Provider [phone] Allergies Active Allergy Reactions Criticality Noted Date [...] A & B MEDICAID OUT OF STATE [facility] [place] [address] MEDICARE PART A & B MEDICAID OUT OF STATE [facility] Care Teams Supervisor Mold Construction Relationship Specialty Start Date End Date Unknown Unknow Provider Address PCP - General 08/20/21 Marce Alexandre APRN [address] [place] [address] Nurse Practitioner Surgery, Transplant 09/26/18 Rob Lagunas MD [address] [place] [address] Referring Provider Nephrology 09/26/18 Eugene Tinoco DO [address] [place] [address] Primary Care Provider Family Medicine 09/26/18
--- OUTSIDE RECORDS SUMMARY | 2025-01-30 15:08 | XMS_ITS | Encounter Summary ---
Author Organization [facility] Address [address] [place] [address] Care Team Providers Care Silvering Applicator Name Role Phone Marce Alexandre APRN Unavailable [phone] Rob Lagunas MD Unavailable Alejandrina Eugene DO Unavailable [phone] Unknown Primary Care Provider [phone] Encounter Details Date Type Department Care Team (Late st Contact Info) Description 08/19/2018 Scanned Document [facility] [address] [address] Provider, MD Jason [address] [place] [address] Social History Tobacco Use Types Packs/Day Years [...] on filedocumented in this encounter Care Teams Silvering Applicator Relationship Specialty Start Date End Date Unknown Unknow Provider Address PCP - General 08/20/21 Marce Alexandre APRN [address] [address] Nurse Practitioner Surgery, Transplant 09/26/18 Rob Lagunas MD [address] [place] [address] Referring Provider Nephrology 09/26/18 Eugene Tinoco DO [address] [place] [address] Primary Care Provider Family Medicine 09/26/18 documented as of this encounter
--- OUTSIDE RECORDS SUMMARY | 2025-01-30 15:08 | XMS_ITS | Encounter Summary ---
Author Organization [facility] Address [address] [place] [address] Care Team Providers Care Privacy Specialist Name Role Phone Marce Alexandre APRN Unavailable Rob Lagunas MD Unavailable [phone] Alejandrina Eugene DO Unavailable [phone] Unknown Primary Care Provider [phone] Encounter Details Date Type Department Care Team (Late st Contact Info) Description 09/21/2018 Scanned Document [facility] [address] [address] Provider, MD Jason [address] [place] [address] Social History Tobacco Use Types Packs/Day Years [...] on filedocumented in this encounter Care Teams Privacy Specialist Relationship Specialty Start Date End Date Unknown Unknow Provider Address PCP - General 08/20/21 Marce Alexandre APRN [address] [address] Nurse Practitioner Surgery, Transplant 09/26/18 Rob Lagunas MD [address] [place] [address] Referring Provider Nephrology 09/26/18 Eugene Tinoco DO [address] [place] [address] Primary Care Provider Family Medicine 09/26/18 documented as of this encounter
--- OUTSIDE RECORDS SUMMARY | 2025-01-30 15:08 | XMS_ITS | Encounter Summary ---
Author Organization [facility] Address [address] [place] [address] Care Team Providers Care Fitness Services Manager Name Role Phone Marce Alexandre APRN Unavailable Rob Lagunas MD Unavailable Alejandrina Eugene DO Unavailable [phone] Unknown Primary Care Provider [phone] Encounter Details Date Type Department Care Team (Late st Contact Info) Description 09/28/2018 Scanned Document [facility] [address] [address] Provider, MD Jason [address] [place] [address] Social History Tobacco Use Types Packs/Day Years [...] on filedocumented in this encounter Care Teams Fitness Services Manager Relationship Specialty Start Date End Date Unknown Unknow Provider Address PCP - General 08/20/21 Marce Alexandre APRN [address] [address] Nurse Practitioner Surgery, Transplant 09/26/18 Rob Lagunas MD [address] [place] [address] Referring Provider Nephrology 09/26/18 Eugene Tinoco DO [address] [place] [address] Primary Care Provider Family Medicine 09/26/18 documented as of this encounter
--- OUTSIDE RECORDS SUMMARY | 2025-01-30 15:08 | XMS_ITS | Encounter Summary ---
Author Organization [facility] Address [address] [place] [address] Care Team Providers Care Hot End Operator Name Role Phone Marce Alexandre APRN Unavailable [phone] Rob Lagunas MD Unavailable [phone] Eugene Tinoco DO Unavailable [phone] Unknown Primary Care Provider [phone] Encounter Details Date Type Department Care Team (Late st Contact Info) Description 09/29/2018 Scanned Document [facility] [address] [address] Keke Stockton [address] [address] Social History Tobacco Use Types Packs/Day Years [...] on filedocumented in this encounter Care Teams Hot End Operator Relationship Specialty Start Date End Date Unknown Unknow Provider Address PCP - General 08/20/21 Marce Alexandre APRN [address] [address] Nurse Practitioner Surgery, Transplant 09/26/18 Rob Lagunas MD [address] [place] [address] Referring Provider Nephrology 09/26/18 Eugene Tinoco DO [address] [place] [address] Primary Care Provider Family Medicine 09/26/18 documented as of this encounter
--- OUTSIDE RECORDS SUMMARY | 2025-01-30 15:08 | XMS_ITS | Encounter Summary ---
Author Organization [facility] Address [address] [place] [address] Care Team Providers Care Oil And Gas Well Treatment Operator Name Role Phone Marce Alexandre STAN Unavailable [phone] Rob Lagunas MD Unavailable [phone] Eugene Tinoco DO Unavailable [phone] Unknown Primary Care Provider [phone] Encounter Details Date Type Department Care Team (Late st Contact Info) Description 09/27/2018 Telephone [facility] 85 [facility] [address] [place] [address] Ilene Gale [place] Social History Tobacco Use Types Packs/Day Years [...] because the patient requested to see a academic manager. I introduced myself to both the [...] on filedocumented in this encounter Care Teams Oil And Gas Well Treatment Operator Relationship Specialty Start Date End Date Unknown Unknow Provider Address PCP - General 08/20/21 Marce Alexandre APRN [address] [place] [address] Nurse Practitioner Surgery, Transplant 09/26/18 Rob Lagunas MD [address] [place] [address] Referring Provider Nephrology 09/26/18 Eugene Tinoco DO [address] [place] [address] Primary Care Provider Family Medicine 09/26/18 documented as of this encounter
--- OUTSIDE RECORDS SUMMARY | 2025-01-30 15:08 | XMS_ITS | Clinical Summary ---
Author Organization [facility] [place], Address [address] [place] [address] Phone Care Team Providers Care Sample Maker Original Name Role Phone Nissa Mckeon DO Primary [...] (04/18/2020): Goes [facility] 2x[facility], as No Tin Tie Machine Operator [employer] in area will take her as patient due past poor behavior and non-compliance. Disorder of kidney and/or ureter 04/18/2020 Dependence on hemodialysis due to end stage jennifre l disease 04/18/2020 Deficiency of macronutrients 04/18/2020 [...] 05/31/2017 Insurance Medicare Medicaid [place] Care Teams Sample Maker Original Relationship Specialty Start Date End Date Nissa Mckeon DO PCP - General 04/29/20
--- OUTSIDE RECORDS SUMMARY | 2025-01-30 15:08 | XMS_ITS | Encounter Summary ---
Author Organization [facility] Address [address] [place] [address] Care Team Providers Care Stripe Matcher Name Role Phone Marce Alexandre APRN Unavailable Rob Lagunas MD Unavailable Alejandrina Eugene DO Unavailable [phone] Unknown Primary Care Provider [phone] Encounter Details Date Type Department Care Team (Late st Contact Info) Description 09/21/2018 Scanned Document [facility] [address] [address] Provider, MD Jason [address] [place] [address] Social History Tobacco Use Types Packs/Day Years [...] on filedocumented in this encounter Care Teams Stripe Matcher Relationship Specialty Start Date End Date Unknown Unknow Provider Address PCP - General 08/20/21 Marce Alexandre APRN [address] [address] Nurse Practitioner Surgery, Transplant 09/26/18 Rob Lagunas MD [address] [place] [address] Referring Provider Nephrology 09/26/18 Eugene Tinoco DO [address] [place] [address] Primary Care Provider Family Medicine 09/26/18 documented as of this encounter
--- OUTSIDE RECORDS SUMMARY | 2025-01-30 15:08 | XMS_ITS | Encounter Summary ---
Author Organization [facility], Address [address] [place] [address] Phone Care Team Providers Care Doctor Of Optometry Name Role Phone TejalveronicaNissa Fu DO Primary Care Pro vider Encounter Details Date Type Department Care Team ([facility] Contact Info) Description 05/27/2020 Telephone [facility] [address] [place] [address] Danna Jain [address] [place] [address] Social History Tobacco Use Types [...] AM EST) Coronavirus COVID-19 PCR NEGATIVE (NEG) [facility] Comment: 2019-novel Coronavirus (2019-nCoV) not detected by real-time RT-PCR. Note: If clinical suspicion for COVID-19 is high, continue to maintain precautions and consider repeat testing. Result reported to the [facility]. To prevent errors in diagnosis, test [...] performed by real time PCR utilizing [employer] SARS-CoV-2 test. SARS-CoV-2 Source [facility] Comment: Testing performed or reported by [facility], a Service of [facility], [address] [place] [address] Danyel Ponce MD, Computer Support Analyst 05/27/2020 11:5 6 AM EST 05/27/2020 2:49 PM EST Christiane Garay MD LAB HISTORICAL-CONVERSIONS- UNSOLICITED RESULTS Final Result [facility] documented in this encounter Visit Diagnoses Not on filedocumented in this encounter Care Teams Doctor Of Optometry Relationship Specialty Start Date End Date Nissa Mckeon DO PCP - General 04/29/20 documented as of this encounter
--- OUTSIDE RECORDS SUMMARY | 2025-01-30 15:08 | XMS_ITS | Clinical Summary ---
Author Organization [facility] Address [address] [place] [address] Care Team Providers Care Livestock Nutritionist Name Role Phone Unavailable Primary Care Provider Unavailabl e Social History Tobacco Use Types Packs/Day Years Used Date Smoking Tobacco: Never Assessed Sex and Gender Information Value Date Recorded Sex Assigned at Not on file Gender Identity Not on file Sexual Orientation Not on file Plan of Treatment Not on file
--- OUTSIDE RECORDS SUMMARY | 2025-01-30 15:08 | XMS_ITS | Encounter Summary ---
Author Organization [facility] Address [address] [place] [address] Care Team Providers Care Floral Clerk Name Role Phone Marce Alexandre APRN Unavailable Rob Lagunas MD Unavailable [phone] Eugene Tinoco DO Unavailable [phone] Unknown Primary Care Provider [phone] Encounter Details Date Type Department Care Team (Late st Contact Info) Description 09/27/2018 Scanned Document [facility] [address] [address] Rohini Hairston [place] [address] [address] Social History Tobacco Use Types Packs/Day Years [...] on filedocumented in this encounter Care Teams Floral Clerk Relationship Specialty Start Date End Date Unknown Unknow Provider Address PCP - General 08/20/21 Marce Alexandre APRN [address] [address] Nurse Practitioner Surgery, Transplant 09/26/18 Rob Lagunas MD [facility] [place] [address] Referring Provider Nephrology 09/26/18 Eugene Tinoco DO [address] [place] [address] Primary Care Provider Family Medicine 09/26/18 documented as of this encounter
--- OUTSIDE RECORDS SUMMARY | 2025-01-30 15:08 | XMS_ITS | Encounter Summary ---
Author Organization [facility] [place], Address [address] [place] [address] Phone Care Team Providers Care Inspector Purchased Parts Name Role Phone Nissa Mckeon DO Primary Care Pro vider Reason for Visit * Reason Comments Med Refill Encounter Details Date Type Department Care Team (Late st Contact Info) Description 07/17/2019 Refill [facility] [address] [place] [address] Wicho Johnson PA [address] [place] [address] Social History Tobacco Use Types [...] on filedocumented in this encounter Care Teams Inspector Purchased Parts Relationship Specialty Start Date End Date Nissa Mckeon DO PCP - General 04/29/20 documented as of this encounter
--- OUTSIDE RECORDS SUMMARY | 2025-01-30 15:08 | XMS_ITS | Encounter Summary ---
Author Organization [facility] [place], Address [address] [place] [address] Phone Care Team Providers Care Slicing Machine Operator Name Role Phone Nissa Mckeon DO Primary Care Pro vider Reason for Visit * Reason Comments Med Refill Encounter Details Date Type Department Care Team (Late st Contact Info) Description 07/16/2020 Refill [facility] [address] [place] [address] Wicho Johnson PA [address] [place] [address] [place] [address] Social History Tobacco Use Types [...] on filedocumented in this encounter Care Teams Slicing Machine Operator Relationship Specialty Start Date End Date Nissa Mckeon DO PCP - General 04/29/20 documented as of this encounter
--- OUTSIDE RECORDS SUMMARY | 2025-01-30 15:08 | XMS_ITS | Patient Health Record ---
Author [facility] Address [address] [facility] [place] [address] Care Team Providers Care Cover Seamer Name Role Phone Alexx Baum Primary Care Provider Unavailab Nan Roper Unavailable [phone] Allergies Allergen (clinical drug ingredient) Drug/Non Drug [...] Problem Type II diabetes mellitus without complication ([id number]) Diabetes mellitus without complication (E11.9) Active confirmed Vital Signs Blood pressure diastolic 65 mm Hg 07/05/2024 Height 5ft6in in 07/05/2024 Blood pressure systolic 113 mm Hg 07/05/2024 Weight 198 lbs 07/05/2024 BMI 31.95 kg/m2 07/05/2024 Encounters Encounter Location Date Provider Diagnosis [address] [address] 06/07/2024 Nan Perica Ingrown nail L60.0 ; Diabetes mellitus without complication E11.9 ; Pain in right toe(s) M79.674 and Pain in left toe(s) M79.[address] [address] 07/05/2024 Nan Perica Ingrown nail L60.0 and Diabetes mellitus without complication E11.[address] [address] 03/27/2024 Nan Perica Assessments Encounter Date Diagnosis [...] Inc [address] [place] [address] [id number] Areli Roblesver Self - patient is the insured 7 Medical (General) History Medical History History ICD Code Anxiety asthma Depression Kidney disease Reflux ( GERD) Diabetes mellitus Surgical History Surgery Date(Month/Year) kidney transplant 2020 shoulder replacement Left 2021
== END 2025-01-30 12:48 | disposition home or self-care (01) ==
PROVIDERS: PCP Physician Assistant; Visit Provider Internal Medicine Critical Care Medicine
DX: Z94.0 Kidney transplant status (principal); N18.6 End stage renal disease; N89.8 Other specified noninflammatory disorders of vagina; I12.0 Hypertensive chronic kidney disease with stage 5 chronic kidney disease or end stage renal disease
CPT/HCPCS: 99214

== ENCOUNTER → 2025-01-30 12:24 | Outpatient (BNVA) | payer MEDICARE, MEDICAID, SELFPAY | PROVIDERS: PCP Physician Assistant; Visit Provider Internal Medicine Critical Care Medicine | DX: Z94.0 Kidney transplant status (principal); N18.6 End stage renal disease; N89.8 Other specified noninflammatory disorders of vagina; I10 Essential (primary) hypertension; Z79.621 Long term (current) use of calcineurin inhibitor | CPT/HCPCS: 99212 ==

== ENCOUNTER 2025-01-31 07:16 | Outpatient (REF) | payer MEDICARE, MEDICAID, SELFPAY ==
--- OUTSIDE RECORDS SUMMARY | 2024-07-05 07:30 | XMS_ITS ---
Author Organization [facility] Address [address] [place] [address] Care Team Providers Care Assembler Product Name Role Phone Alexx Baum Primary Care Provider Unavailab Nan Roper Unavailable [phone] REASON FOR VISIT Missbooked Encounters Encounter Location Date Provider Diagnosis [facility] [address] [place] [address] 07/05/2024 Nan Phillips Plan Of Treatment No Information Progress Notes * Dara ROBLES RDOB:1975 (49 yo F)Acc No.[id number]:07/05/2024 Progress Note Patient: Dara ABDLALA Provider: Allie Phillips DPM :1975 A ge:48 Y S ex:Female Date:07/05/2024 Address:[address] [place], [place] [phone] Pcp:Alexx Baum Subjective: * Chief Complaints: * [...] 07/05/2024 Generated for Printi ng/Faxing/eTransmitting on: 1 07:19 AM EDT
--- OUTSIDE RECORDS SUMMARY | 2025-01-31 07:19 | XMS_ITS | Encounter Summary ---
Author Organization [facility], Address [address] [place] [address] Phone Care Team Providers Care Frit Maker Name Role Phone Nissa Mckeon DO Primary Care Pro vider Encounter Details Date Type Department Care Team ([facility] Contact Info) Description 04/29/2021 Documentation Only [facility], [address] [place] [address] Rob Lagunas MD [address] [place] [address] Social History Tobacco Use Types [...] on filedocumented in this encounter Care Teams Frit Maker Relationship Specialty Start Date End Date Nissa Mckeon DO PCP - General 04/29/20 documented as of this encounter
--- OUTSIDE RECORDS SUMMARY | 2025-01-31 07:19 | XMS_ITS | Clinical Summary ---
Author Organization [facility] Address [address] [place] [address] Care Team Providers Care Job Molder Name Role Phone Unavailable Primary Care Provider [...] meals. 270 Cap 2 3 Active b mewkwrq-M-tvvyn acid (NEPHROCAPS) 1 mg per capsuleIndicatio ns:ESRD [...] (two) times daily. 15 g Active b boqphgz-Z-cemhm acid (RENAL CAPS) 1 mg per capsuleIndicatio [...] renal disease) on dialysis Overview (01/03/2013): Goes [facility] 2x/week, as No Manager [employer] in area will take her as patient due past poor behavior and non-compliance. Eczema ASTHMA MODERATE PERSISTENT Overview (01/02/2013): Tobacco abuse Hyperlipidemia Hidradenitis suppurativa Overview (01/02/2013): Wound care follow up Dr. Mcbride Borderline personality disorder Overview (01/03/2013): Non-compliant with psych f/u. GERD (gastroesophageal reflux disease) Constipation Allergic rhinitis Vulvar candidiasis Right hip pain Immunizations Immunization Administration Dates Next Due Hep B, Adult/Adol (SLLXDOY-H-IBWJZ/RECOMBIVAX-ADULT) 08/09/2008,07/19/2008,03/06/2008 PPD 07/03/2005 Social History Tobacco Use Types Packs/Day Years Used Date Smoking Tobacco: Never Assessed Comments Unknown Sex and Gender Information Value Date Recorded Sex Assigned at Not on file Legal Sex Female 11:36 AM PDT Gender Identity Not on file Sexual Orientation Not on file Plan of Treatment Not on file Insurance [place]ARE - [place]
--- OUTSIDE RECORDS SUMMARY | 2025-01-31 07:19 | XMS_ITS | Encounter Summary ---
Author Organization [facility] [place], Address [address] [place] [address] Phone Care Team Providers Care Internet Webmaster Name Role Phone Nissa Mckeon DO Primary Care Pro vider Encounter Details Date Type Department Care Team ([facility] Contact Info) Description 05/23/2021 Documentation Only [facility], [address] [place] [address] Rob Lagunas MD [address] [place] [address] Social History Tobacco Use Types [...] on filedocumented in this encounter Care Teams Internet Webmaster Relationship Specialty Start Date End Date Nissa Mckeon DO PCP - General 04/29/20 documented as of this encounter
--- OUTSIDE RECORDS SUMMARY | 2025-01-31 07:19 | XMS_ITS | Clinical Summary ---
Author Organization [facility] Address [address] [place] [address] Care Team Providers Care Embroiderer Hand Name Role Phone Unavailable Primary Care Provider Unavailabl e Surgical History Surgery Date Site/Laterality Comments OTHER SURGICAL HISTORY PROCEDURE: AV FISTULA OR GRAFT ARTERIAL PARATHYROIDECTOMY PROCEDURE: HISTORICAL PARATHYROIDECTOMY OTHER SURGICAL HISTORY PROCEDURE: [place] PR[facility] THYROID LOBECTOMY UNI W/WO ISTHMUSECTOMY Medical History Medical History Date Comments HTN (hypertension) DX:HTN (hyper tension) ESRD (end stage renal diseas e) ([facility] [place], [facility] V28) DX:ESRD (end stage renal dis ease) ([facility]); COMMENT: [facility] er/icu; babu Anxiety DX:Anxiety Depression DX:Depression Bipolar disorder ([facility] V2 4, [facility] V28) DX:Bipolar disorder ([facility]); C OMMENT: [facility] therapist Secondary hyperparathyroidis m ([facility] V24) DX:Secondary hyperparathyroi dism ([facility]) Asthma DX:Asthma Tobacco use DX:Tobacco use Hidradenitis suppurativa DX:Hidr adenitis suppurativa History of substance abuse ( [facility] V24, [facility] V28) DX:History of substance abus e ([facility]) GERD (gastroesophageal reflux disease) DX:GERD [...]
--- OUTSIDE RECORDS SUMMARY | 2025-01-31 07:19 | XMS_ITS | Encounter Summary ---
Author Organization [facility], Address [address] [place] [address] Phone Care Team Providers Care Pain Management Nurse Name Role Phone Nissa Mckeon DO Primary Care Pro vider Encounter Details Date Type Department Care Team (Late st Contact Info) Description 07/25/2021 Telephone [facility] [address] [place] [address] Danna Jain [address] [place] [address] Social History Tobacco Use Types [...] on filedocumented in this encounter Care Teams Pain Management Nurse Relationship Specialty Start Date End Date Nissa Mckeon DO PCP - General 04/29/20 documented as of this encounter
--- OUTSIDE RECORDS SUMMARY | 2025-01-31 07:20 | XMS_ITS | Clinical Summary ---
Author Organization [facility] Address [address] [address] Phone Care Team Providers Care Field Sales Manager Name Role Phone Eugene Tinoco DO Primary Care Provider [phone] Allergies Active Allergy Reactions Criticality Noted Date [...] 10:36 AM EST) HCV ANTIBODY Negative Negative [facility] Comment:Antibodies to HCV no t detected. Does not exclude the possibility of exposure to HCV. 06/24/2018 10:3 6 AM EST 06/24/2018 12:44 PM EST us Varun Robles MD LAB BLOOD ORDERABLES Final Result [address] [address] from Last 3 Months or Most Recently Relevant to Health Maintenance [facility] & [facility] & [place] A & B [facility] [place] [address] [facility] MEDIC[facility] PART A & B [place]IC[place] PART A & [place] [address] [facility] A & B [facility] [place] [address] [facility] MEDICARE PART A & [place] A & B MED[place]ARE PART A & [place] Care Teams Field Sales Manager Relationship Specialty Start Date End Date Eugene Tinoco DO PCP - General Family Medicine 01/31/18 Additional Source Comments The information contained in this document represents components of the legal health record. It is not the complete legal health record.[facility]
--- OUTSIDE RECORDS SUMMARY | 2025-01-31 07:21 | XMS_ITS | Clinical Summary ---
Author Organization [employer] [facility] Address [address] [place] [address] Care Team Providers Care Solar Tech Name Role Phone Unavailable Primary Care Provider Unavailabl e Social History Tobacco Use Types Packs/Day Years Used Date Smoking Tobacco: Never Assessed Sex and Gender Information Value Date Recorded Sex Assigned at Not on file Gender Identity Not on file Sexual Orientation Not on file Plan of Treatment Not on file
--- OUTSIDE RECORDS SUMMARY | 2025-01-31 07:21 | XMS_ITS | Encounter Summary ---
Author Organization [facility] Address [address] [place] [address] Care Team Providers Care Game Master Name Role Phone Marce Alexandre APRN Unavailable Rob Lagunas MD Unavailable Alejandrina Eugene DO Unavailable [phone] Primary Care Provider [phone] Encounter Details Date Type Department Care Team (Late st Contact Info) Description 09/21/2018 Scanned Document [facility] [address] [address] Provider, MD Jason [address] [place] [address] Social History Tobacco Use Types Packs/Day Years [...] on filedocumented in this encounter Care Teams Game Master Relationship Specialty Start Date End Date Unknown Unknow Provider Address PCP - General 08/20/21 Marce Alexandre APRN [address] [address] Nurse Practitioner Surgery, Transplant 09/26/18 Rob Lagunas MD [address] [place] [address] Referring Provider Nephrology 09/26/18 Eugene Tinoco DO [address] [place] [address] Primary Care Provider Family Medicine 09/26/18 documented as of this encounter
--- OUTSIDE RECORDS SUMMARY | 2025-01-31 07:21 | XMS_ITS | Encounter Summary ---
Author Organization [facility] Address [address] [place] [address] Care Team Providers Care Track Worker Name Role Phone Marce Alexandre APRN Unavailable [phone] Rob Lagunas MD Unavailable [phone] Alejandrina Eugene DO Unavailable [phone] Unknown Primary Care Provider [phone] Encounter Details Date Type Department Care Team (Late st Contact Info) Description 09/21/2018 Scanned Document [facility] [address] [address] Provider, MD Jason [address] [place] [address] Social History Tobacco Use Types Packs/Day Years [...] on filedocumented in this encounter Care Teams Track Worker Relationship Specialty Start Date End Date Unknown Unknow Provider Address PCP - General 08/20/21 Marce Alexandre APRN [address] [address] Nurse Practitioner Surgery, Transplant 09/26/18 Rob Lagunas MD [address] [place] [address] Referring Provider Nephrology 09/26/18 Eugene Tinoco DO [address] [place] [address] Primary Care Provider Family Medicine 09/26/18 documented as of this encounter
--- OUTSIDE RECORDS SUMMARY | 2025-01-31 07:21 | XMS_ITS | Encounter Summary ---
Author Organization [facility] Address [address] [place] [address] Care Team Providers Care Supervisor Customer Complaint Service Name Role Phone Marce Alexandre APRN Unavailable [phone] Rob Lagunas MD Unavailable [phone] Alejandrina Eugene DO Unavailable [phone] Unknown Primary Care Provider [phone] Encounter Details Date Type Department Care Team (Late st Contact Info) Description 08/19/2018 Scanned Document [facility] [address] [address] Provider, MD Jason [address] [place] [address] Social History Tobacco Use Types Packs/Day Years [...] filedocumented in this encounter Care Teams Supervisor Customer Complaint Service Relationship Specialty Start Date End Date Unknown Unknow Provider Address PCP - General 08/20/21 Marce Alexandre APRN [address] [address] Nurse Practitioner Surgery, Transplant 09/26/18 Rob Lagunas MD [address] [place] [address] Referring Provider Nephrology 09/26/18 Eugene Tinoco DO [address] [place] [address] Primary Care Provider Family Medicine 09/26/18 documented as of this encounter
--- OUTSIDE RECORDS SUMMARY | 2025-01-31 07:21 | XMS_ITS | Patient Health Record ---
Author Organization [facility] Address [address] [facility] [place] [address] Care Team Providers Care Qa Architect Name Role Phone Alexx Baum Primary Care Provider Unavailab Nan Roper Unavailable [phone] Allergies Allergen (clinical drug ingredient) Drug/Non Drug [...] Problem Type II diabetes mellitus without complication (465701163) Diabetes mellitus without complication (E11.9) Active confirmed Vital Signs Blood pressure diastolic 65 mm Hg 07/05/2024 Height 5ft6in in 07/05/2024 Blood pressure systolic 113 mm Hg 07/05/2024 Weight 198 lbs 07/05/2024 BMI 31.95 kg/m2 07/05/2024 Encounters Encounter Location Date Provider Diagnosis [address] [address] 06/07/2024 Nan Perica Ingrown nail L60.0 ; Diabetes mellitus without complication E11.9 ; Pain in right toe(s) M79.674 and Pain in left toe(s) M79.[address] [address] 07/05/2024 Nan Perica Ingrown nail L60.0 and Diabetes mellitus without complication E11.[address] [address] 03/27/2024 Nan Perica Assessments Encounter Date Diagnosis [...] Inc [address] [place] [address] [id number] Areli Roblesver Self - patient is the insured 7 Medical (General) History Medical History History ICD Code Anxiety asthma Depression Kidney disease Reflux ( GERD) Diabetes mellitus Surgical History Surgery Date(Month/Year) kidney transplant 2020 shoulder replacement Left 2021
--- OUTSIDE RECORDS SUMMARY | 2025-01-31 07:21 | XMS_ITS | Encounter Summary ---
Author Organization [facility] Address [address] [place] [address] Care Team Providers Care Signal Operator Linguist Name Role Phone Marce Alexandre STAN Unavailable [phone] Rob Lagunas MD Unavailable [phone] Eugene Tinoco DO Unavailable [phone] Unknown Primary Care Provider [phone] Encounter Details Date Type Department Care Team (Late st Contact Info) Description 09/27/2018 Telephone [facility] 85 [facility] [address] [place] [address] Ilene Gale [place] Social History Tobacco Use Types Packs/Day Years [...] because the patient requested to see a ag service manager. I introduced myself to both the [...] on filedocumented in this encounter Care Teams Signal Operator Linguist Relationship Specialty Start Date End Date Unknown Unknow Provider Address PCP - General 08/20/21 Marce Alexandre APRN [address] [place] [address] Nurse Practitioner Surgery, Transplant 09/26/18 Rob Lagunas MD [address] [place] [address] Referring Provider Nephrology 09/26/18 Eugene Tinoco DO [address] [place] [address] Primary Care Provider Family Medicine 09/26/18 documented as of this encounter
--- OUTSIDE RECORDS SUMMARY | 2025-01-31 07:21 | XMS_ITS | Encounter Summary ---
Author Organization [facility] Address [address] [place] [address] Care Team Providers Care Manager Strategic Sourcing Name Role Phone Marce Alexandre APRN Unavailable Rob Lagunas MD Unavailable Eugene Tinoco DO Unavailable [phone] Unknown Primary Care Provider [phone] Encounter Details Date Type Department Care Team (Late st Contact Info) Description 09/27/2018 Scanned Document [facility] [address] [address] Rohini Hairston [place] [address] [address] Social History Tobacco Use Types Packs/Day Years [...] filedocumented in this encounter Care Teams Manager Strategic Sourcing Relationship Specialty Start Date End Date Unknown Unknow Provider Address PCP - General 08/20/21 Marce Alexandre APRN [address] [address] Nurse Practitioner Surgery, Transplant 09/26/18 Rob Lagunas MD [facility] [place] [address] Referring Provider Nephrology 09/26/18 Eugene Tinoco DO [address] [place] [address] Primary Care Provider Family Medicine 09/26/18 documented as of this encounter
--- OUTSIDE RECORDS SUMMARY | 2025-01-31 07:21 | XMS_ITS | Encounter Summary ---
Author Organization [facility] Address [address] [place] [address] Care Team Providers Care Hearing Care Professional Name Role Phone Marce Alexandre APRN Unavailable [phone] Rob Lagunas MD Unavailable [phone] Eugene Tinoco DO Unavailable [phone] Unknown Primary Care Provider [phone] Encounter Details Date Type Department Care Team (Late st Contact Info) Description 09/29/2018 Scanned Document [facility] [address] [address] Keke Stockton [address] [address] Social History Tobacco Use Types Packs/Day Years [...] on filedocumented in this encounter Care Teams Hearing Care Professional Relationship Specialty Start Date End Date Unknown Unknow Provider Address PCP - General 08/20/21 Marce Alexandre APRN [address] [address] Nurse Practitioner Surgery, Transplant 09/26/18 Rob Lagunas MD [address] [place] [address] Referring Provider Nephrology 09/26/18 Eugene Tinoco DO [address] [place] [address] Primary Care Provider Family Medicine 09/26/18 documented as of this encounter
--- OUTSIDE RECORDS SUMMARY | 2025-01-31 07:21 | XMS_ITS | Clinical Summary ---
Author Organization [facility] Address [address] [place] [address] Care Team Providers Care Military Logistics Specialist Name Role Phone Marce Alexandre STAN Unavailable [phone] Rob Lagunas MD Unavailable [phone] Eugene Tinoco DO Unavailable [phone] Unknown Primary Care Provider [phone] Allergies Active Allergy Reactions Criticality Noted Date [...] A & B MEDICAID OUT OF STATE [facility] [facility] [place] [address] MEDICARE PART A & B MEDICAID OUT OF STATE [facility] Care Teams Military Logistics Specialist Relationship Specialty Start Date End Date Unknown Unknow Provider Address PCP - General 08/20/21 Marce Alexandre APRN [address] [place] [address] Nurse Practitioner Surgery, Transplant 09/26/18 Rob Lagunas MD [address] [place] [address] Referring Provider Nephrology 09/26/18 Eugene Tinoco DO [address] [place] [address] Primary Care Provider Family Medicine 09/26/18
--- OUTSIDE RECORDS SUMMARY | 2025-01-31 07:21 | XMS_ITS | Encounter Summary ---
Author Organization [facility] Address [address] [place] [address] Care Team Providers Care Canvas Worker Apprentice Name Role Phone Marce Alexandre APRN Unavailable [phone] Rob Lagunas MD Unavailable Alejandrina Eugene DO Unavailable [phone] Unknown Primary Care Provider [phone] Encounter Details Date Type Department Care Team (Late st Contact Info) Description 09/28/2018 Scanned Document [facility] [address] [address] Provider, MD Jason [address] [place] [address] Social History Tobacco Use Types Packs/Day Years [...] on filedocumented in this encounter Care Teams Canvas Worker Apprentice Relationship Specialty Start Date End Date Unknown Unknow Provider Address PCP - General 08/20/21 Marce Alexandre APRN [address] [address] Nurse Practitioner Surgery, Transplant 09/26/18 Rob Lagunas MD [address] [place] [address] Referring Provider Nephrology 09/26/18 Eugene Tinoco DO [address] [place] [address] Primary Care Provider Family Medicine 09/26/18 documented as of this encounter
--- OUTSIDE RECORDS SUMMARY | 2025-01-31 07:21 | XMS_ITS | Clinical Summary ---
Author Organization [facility], Address [address] [place] [address] Phone Care Team Providers Care Coding Consultant Name Role Phone Nissa Mckeon DO [...] (04/18/2020): Goes [facility], as No Peanut Blancher in area will take her as patient [...] 05/31/2017 Insurance Medicare Medicaid [place] Care Teams Coding Consultant Relationship Specialty Start Date End Date Nissa Mckeon DO PCP - General 04/29/20
--- OUTSIDE RECORDS SUMMARY | 2025-01-31 07:21 | XMS_ITS | Encounter Summary ---
Author Organization [facility], Address [address] [place] [address] Phone Care Team Providers Care Orthopedic Surgeon Name Role Phone TejalveronicaNissa Fu DO Primary Care Pro vider Encounter Details Date Type Department Care Team ([facility] Contact Info) Description 05/27/2020 Telephone [facility] [address] [place] [address] Danna Jain [address] [place] [address] Social History Tobacco Use Types [...] AM EST) Coronavirus COVID-19 PCR NEGATIVE (NEG) [facility] Comment: 2019-novel Coronavirus (2019-nCoV) not detected by real-time RT-PCR. Note: If clinical suspicion for COVID-19 is high, continue to maintain precautions and consider repeat testing. Result reported to the [facility]. To prevent errors in diagnosis, test [...] performed by real time PCR utilizing [employer] SARS-CoV-2 test. SARS-CoV-2 Source [facility] Comment: Testing performed or reported by [facility], a Service of [facility], [address] [place] [address] Danyel Ponce MD, Hospital Attendant 05/27/2020 11:5 6 AM EST 05/27/2020 2:49 PM EST Christiane Garay MD LAB HISTORICAL-CONVERSIONS- UNSOLICITED RESULTS Final Result [facility] documented in this encounter Visit Diagnoses Not on filedocumented in this encounter Care Teams Orthopedic Surgeon Relationship Specialty Start Date End Date Nissa Mckeon DO PCP - General 04/29/20 documented as of this encounter
--- OUTSIDE RECORDS SUMMARY | 2025-01-31 07:21 | XMS_ITS | Encounter Summary ---
Author Organization [facility], Address [address] [place] [address] Phone Care Team Providers Care Stage Set Up Worker Name Role Phone Nissa Mckeon DO Primary Care Pro vider Reason for Visit * Reason Comments Med Refill Encounter Details Date Type Department Care Team (Late st Contact Info) Description 07/16/2020 Refill [facility] [address] [place] [address] Wicho Johnson PA [address] [place] [address] [place] [address] Social History Tobacco Use Types [...] on filedocumented in this encounter Care Teams Stage Set Up Worker Relationship Specialty Start Date End Date Nissa Mckeon DO PCP - General 04/29/20 documented as of this encounter
--- OUTSIDE RECORDS SUMMARY | 2025-01-31 07:21 | XMS_ITS | Encounter Summary ---
Author Organization [facility], Address [address] [place] [address] Phone Care Team Providers Care Harness And Bag Inspector Name Role Phone Nissa Mckeon DO Primary Care Pro vider Reason for Visit * Reason Comments Med Refill Encounter Details Date Type Department Care Team (Late st Contact Info) Description 07/17/2019 Refill [facility] [address] [place] [address] Wicho Johnson PA [address] [place] [address] Social History Tobacco Use Types [...] on filedocumented in this encounter Care Teams Harness And Bag Inspector Relationship Specialty Start Date End Date Nissa Mckeon DO PCP - General 04/29/20 documented as of this encounter
[2025-01-31 10:22] LABS: Appearance Urine Clear; Glucose Urine UA Negative (Negative); PH 6.5 (5.0-9.0); Specific Gravity - Urine 1.015 (1.005-1.025); UMIC TRIGGER UA YES
[2025-01-31 10:34] LABS: Anion Gap 14 (12-20); Blood Urea Nitrogen 17 mg/dL (9-16); Calcium 9.0 mg/dL (8.4-10.2); Carbon Dioxide 19 mmol/L (22-29); Chloride 109 mmol/L (96-108); Estimated Glomerular Filt Rate 45; Potassium 3.8 mmol/L (3.3-5.1); Sodium 138 mmol/L (135-145)
[2025-01-31 11:09] LABS: Microalbum/Creatinine Ratio Ur 69.0 ug/mg cr (<30)
[2025-02-01 14:08] LABS: Tacrolimus Prograf 4.3 mcg/L
== END 2025-01-31 07:17 | disposition home or self-care (01) ==
LOC: HO.HMGCLDS 07:16
PROVIDERS: Visit Provider Internal Medicine Critical Care Medicine
DX: N18.6 End stage renal disease (principal); N89.8 Other specified noninflammatory disorders of vagina; Z94.0 Kidney transplant status
CPT/HCPCS: 36415; 80048; 80197; 81001; 82043; 82570

== ENCOUNTER 2025-02-19 08:46 | Outpatient (AMB) | payer MEDICARE, MEDICAID, SELFPAY ==
--- OUTSIDE RECORDS SUMMARY | 2024-07-05 06:30 | XMS_ITS ---
Author Organization [facility] Address [address] [place] [address] Care Team Providers Care Bowling Floor Desk Clerk Name Role Phone Alexx Baum Primary Care Provider Unavailab Nan Roper Unavailable [phone] REASON FOR VISIT Missbooked Encounters Encounter Location Date Provider Diagnosis [facility] [address] [place] [address] 07/05/2024 Nan Phillips Plan Of Treatment No Information Progress Notes * Dara ROBLES RDOB:1975 (49 yo F)Acc No.[id number]:07/05/2024 Progress Note Patient: Dara ABDALLA Provider: Allie Phillips DPM :1975 A ge:48 Y S ex:Female Date:07/05/2024 Address:[address] [place], [place] [id number] Pcp:Alexx Baum Subjective: * Chief Complaints: * [...] DPM Date: 0 07/05/2024 Generated for Printi ng/Fayesig/eTransmitting on: 04/21/2024 09:20 AM EST
--- NOTE | 2025-02-19 08:50 | MHC.PC.OV ---
Vital Signs 02/19/25 08:51 02/19/25 09:08 Height 5 ft 6 in Weight 200 lb 2 oz BMI 32.3 BP 140/70 H 130/90 H Blood Pressure Location Lt brachial Position Sitting Temp 96.9 F Temp Source Temporal Artery Scan Intake Visit Reasons: f/u DMII / HLD/ ESRD - see comments Intake Note: Patient is here to follow up on DMII, HLD, ESRD. Leasing Assistant Required: No Insurance Customer Service Specialist: Not Required per policy Accompanied by: Self / Same As Patient Allergies lisinopril (LISINOPRIL) Allergy (Intermediate, Verified 02/19/25 09:03) EYES SWELL SHUT, angioedema, angioedema tramadol (TRAMADOL) Allergy (Intermediate, Verified 02/19/25 09:03) HIVES piperacillin (Zosyn) Allergy (Mild, Verified 02/19/25 09:03) rash cefazolin Allergy (Unknown, Verified 02/19/25 09:03) Unknown hydrocodone (From VICODIN) Allergy (Unknown, Verified 02/19/25 09:03) UNKNOWN ibuprofen (From Motrin) Allergy (Unknown, Verified 02/19/25 09:03) Unknown shellfish derived Allergy (Unknown, Verified 02/19/25 09:03) Unknown Sulfa (Sulfonamide Antibiotics) (SULFA (SULFONAMIDE ANTIBIOTICS)) Allergy (Unknown, Verified 02/19/25 09:03) UNKNOWN vancomycin Allergy (Unknown, Verified 02/19/25 09:03) rash azithromycin Adverse Reaction (Intermediate, Verified 02/19/25 09:03) dizziness/AVERY Medication List - Last Reconciled 02/19/25 by Alexx Baum PA-C acetaminophen ER 650 mg PO Q12H 30 days albuterol sulfate 2.5 mg (3 mL) inhalation Q6H PRN 15 days albuterol sulfate 90 mcg/actuation 1 inh inhalation QID PRN 6 months amlodipine 10 mg PO DAILY 90 days blood sugar diagnostic (PaperShareTouch Verio test strips) Testing daily as needed chlorhexidine gluconate 4% (Hibiclens) topical docusate sodium (Dulcolax Stool Softener (docusate)) 100 mg PO BID 90 days ergocalciferol (vitamin D2) 1,250 mcg PO QWEEK 12 weeks estradiol 0.01%(0.1mg/gram) vaginal etonogestrel (Nexplanon) 68 mg subdermal DAILY famotidine (Pepcid) 20 mg PO BID 90 days gentamicin 0.3% 1 drp ophthalmic (eye) Q8H 5 days lancets (OneTouch Delica Plus Lancet) As directed mycophenolate mofetil (CellCept) 500 mg (2 x 250 mg) PO BID 90 days nebulizers (AeroEclipse II Nebulizer) As directed pantoprazole 40 mg PO DAILY 90 days sennosides (senna) 8.6 mg PO BID 90 days sodium citrate-citric acid 500-334 mg/5 mL 30 mL PO BID 30 days tacrolimus (Prograf) 3 mg (3 x 1 mg) PO Q12H 30 days tacrolimus (Prograf) 3 mg (3 x 1 mg) PO Q12H 90 days tirzepatide (Mounjaro) 15 mg subcut QWEEK tirzepatide (Mounjaro) 15 mg (0.5 mL) subcut QWEEK 4 weeks Tobacco use date assessed: 02/19/25 Dental Screening Dental Screen Date: 08/01/24 HPI f/u DMII / HLD/ ESRD - see comments HPI Details Patient is a 49 year female here today for follow-up visit. .? Patient has a past medical history significant for pulmonary embolism on anticoagulation, GERD, Asthma, Iron def anemia,? obesity, DMII, end-stage renal disease status post kidney transplant, chronic lumbar spine pain. .. Kidney transplant recipient:? Has a history of chronic kidney disease stage 5 with status post kidney transplant in September 2020 at [facility]. The patient reports issues in maintaining her nephrology care due to an unresolved conflict at the [facility] clinic, preventing her from securing new care providers for her transplant maintenance. She has been able to establish care with new Nephrology group here in [place]. They are managing her transplant medications. Most recent renal function has been stable. .. DMII:? Continues to maintain her weight loss.. She plans on being more physically active. She has been watching her diet and reducing her carbohydrates. She continues on Mounjauro and has lost any significant amount of weight has better glycemic control., today's A1c of 5.3 Laboratory Tests 05/06/24 09/30/24 09/30/24 10:44 08:24 08:26 WBC RBC 4.98 5.02 Hgb 13.6 BUN 27 H Creatinine 1.12 1.61 H Magnesium 1.5 L Cholesterol 117 LDL Cholesterol, C alc 70 Urine Microalbumin 10/16/24 11/18/24 11/23/24 06:12 07:47 06:32 WBC 4.5 L RBC 4.99 Hgb BUN 29 H Creatinine 1.20 Magnesium Cholesterol 130 LDL Cholesterol, C alc 80 Urine Microalbumin 69.0 01/15/25 01/31/25 06:18 07:32 WBC RBC Hgb BUN Creatinine 1.19 1.27 Magnesium Cholesterol LDL Cholesterol, C alc Urine Microalbumin 68.0 [facility] Medical History History of pulmonary embolism Chronic kidney disease Ankylosing spondylitis of lumbar region Right lumbar radiculopathy Surgical History S/P kidney transplant Status post dialysis Hx of bilateral breast reduction surgery Family History Mother No problems noted. Father No problems noted. Brother Substance abuse Social History Household Members: None Housing: Apartment Are you a primary home care associate to a significant other at home: No Do you presently have visiting nurse or other home services: No Alcohol intake: never Patient Tobacco Use Status: Former Tobacco user Years Smoked: 15 e-Cigarette/Vaping Use: Never Used Second Hand Smoke Exposure: Yes Advance Directives Date on File: 02/26/20 service: No Current occupational status: disabled Gender identity: Female Cognitive needs: No Hearing needs: No Vision needs: Yes (Glasses) Female Reproductive History Menstrual Age of Menarche: 17 Questionnaire Thrive Questionnaire Date Thrive assessed: 08/01/24 I am a: Patient What is your living situation today?: I choose not to answer this question Within the past 12 months, did the food you bought not last and you didn't have the money to get more?: I choose not to answer this question Within the past 12 months, did you worry whether your food would run out before you got money to buy more?: I choose not to answer this question Do you have trouble paying for medicines?: I choose not to answer this question Do you have trouble getting transportation to medical appointments?: I choose not to answer this question Do you have trouble paying your heating and electricity bill?: I choose not to answer this question Do you have trouble taking care of your child, family member or friend?: I choose not to answer this question Do you have trouble with day-to-day activities such as bathing, preparing meals, shopping, managing finances, etc.?: I choose not to answer this question Are you currently unemployed and looking for a job?: I choose not to answer this question Are you interested in more education?: I choose not to answer this question Please select the resources that you would like help with: None Currently or been in a relationship where the following occur: I choose not to answer THRIVE Score: 0 VIRIDIANA-7 AMB Questionnaire VIRIDIANA-7 Date VIRIDIANA - 7 assessed: 08/01/24 Source: Developed by Drs. Han Marcelo, Halle Robles, Dexter Medrano and colleagues, with an educational tigre from [employer]. Review of Systems Const Denies headache(s) Eyes Denies loss of vision ENT Denies vertigo, Denies dizziness, Denies headache(s) and Denies sore throat Card Denies chest pain, Denies leg edema and Denies lightheadedness Resp Denies cough, Denies hemoptysis and Denies wheezing GI Denies abdominal pain, Denies melena, Denies constipation, Denies diarrhea and Denies vomiting Denies urinary frequency, Denies dysuria and Denies urinary urgency Musc Denies arthralgias, Denies joint swelling, Denies numbness and Denies tingling Neuro Denies Abnormal speech present, Denies behavioral changes, Denies vertigo, Denies dizziness, Denies headache(s), Denies loss of vision, Denies memory loss, Denies numbness and Denies tingling Psych Denies anxiety, Denies behavioral changes, Denies depression, Denies memory loss and Denies panic attacks Chris/Lymph Denies easy bleeding and Denies easy bruising Aller/Immun Denies wheezing Physical exam (Primary Care) Vital Signs: Last Vital Signs Temp 96.9 F 02/19/25 08:51 BP 140/70 H 02/19/25 08:51 BMI result Body Mass Index 32.3 BMI Assessment/Plan discussion: High BMI High, discussed plan: lifestyle, weight reduction, dietary and physical activity Tobacco/Smoking Status: Tobacco use Status Tobacco use date assessed 02/19/25 02/19/25 08:59 Patient Tobacco Use Status Former Tobacco user 02/19/25 08:59 e-Cigarette/Vaping Use Never Used 02/19/25 08:59 Thrive Assessment: Date of Thrive Assessment Date Thrive assessed 08/01/24 02/19/25 08:59 Currently or been in a relationship where the following occur: I choose not to answer Const General: healthy appearing, no acute distress, alert and awake Nutritional Appearance: well nourished Orientation/consciousness: oriented to person, oriented to place and oriented to time HENMT Ears: TM's normal bilaterally General nose exam: Normal nasal mucous membranes and turbinates present Eyes Conjunctivae: conjunctivae normal Sclerae: sclerae normal Pupils: Equal, round and reactive pupils present Neck Neck: Yes no lymphadenopathy and Yes no JVD Thyroid: Thyroid normal Carotids: no bruits Resp Effort & Inspection: normal respiratory effort and not tachypneic Auscultation: no crackles, no rales, no rhonchi and no wheezes Cardio Rate: regular rate Rhythm: regular rhythm Heart sounds: no murmurs and normal S1 and S2 GI Palpation (GI): Soft to palpation, nontender, no hepatomegaly and no splenomegaly Auscultation: normal bowel sounds Skin General skin exam: no rashes or lesions noted and dry skin Neuro General: oriented to person, oriented to place and oriented to time Cranial nerves: Yes Equal, round and reactive pupils present Speech: No Abnormal speech present Gait exam (Neuro): Normal gait present Motor exam (neuro): no tremor noted Extrem Right upper extremity: full ROM Left upper extremity: full ROM Right lower extremity: full ROM; no edema Left lower extremity: full ROM; no edema Psych Mental Status: mental status grossly normal Speech and movement: Normal speech and movement present Affect: normal affect Attitude: cooperative Thought process: Normal thought process present Results AMB Hemoglobin A1c AMB Hemoglobin A1c 5.3 % Last Edit by MAYO Fernandes on 02/19/25 09:04 Coding Level of Care Code Est Pt Level 4 (98501) Diagnoses Type 2 diabetes mellitus with hyperglycemia, without long-term current use of insulin E11.65 Diabetes mellitus long term acute care registered nurse insulin use: without fci use Diabetes mellitus complication status: with hyperglycemia Class 1 obesity E66.811 Primary hypertension I10 Hypertension type: primary hypertension ESRD (end stage renal disease) N18.6 Assessment & Plan Assessment & Plan (1) DMII (diabetes mellitus, type 2): Code(s): E11.9 - Type 2 diabetes mellitus without complications Category: Medical Qualifiers: Diabetes mellitus long term acute care registered nurse insulin use: without long term acute care registered nurse use Diabetes mellitus complication status: with hyperglycemia Qualified Code(s): E11.65 - Type 2 diabetes mellitus with hyperglycemia Plan: Today's A1c acceptable, her diabetes has been well controlled. She continues on Mounjaro daily. Goal A1c is to remain below 6.5. (2) Class 1 obesity: Code(s): E66.811 - Obesity, class 1 Category: Medical Plan: Patient does understand her BMI is over 30 will continue working on being physically active and adapting to better eating habits to reduce her weight. She has been able to lose a lot of weight on a GLP 1. (3) Hypertension: Code(s): I10 - Essential (primary) hypertension Category: Medical Qualifiers: Hypertension type: primary hypertension Qualified Code(s): I10 - Essential (primary) hypertension Plan: Patient's blood pressure slightly elevated today in office. She attributes her blood pressure being elevated to high sodium diet lately. She will monitor blood pressure at home with goal blood pressure to be below 130/80 (4) ESRD (end stage renal disease): Code(s): N18.6 - End stage renal disease Category: Medical Plan: Continues to follow [facility]. Continues on antirejection medication for the rest of her life. Recent creatinine at 1.2 Orders: Orders Comprehensive [place]. Panel Fast Today E11.65 - Type 2 diabetes mellitus with hyperglycemia IRON PROFILE Today D50.0 - Iron deficiency anemia secondary to blood loss (chronic), D50.9 - Iron deficiency anemia, unspecified AMB Hemoglobin A1c Today E11.65 - Type 2 diabetes mellitus with hyperglycemia Lipid Panel Today E11.65 - Type 2 diabetes mellitus with hyperglycemia
[2025-02-19 08:51] VITALS: BP 140/70; TEMP 36.1; BMI 32.3
[2025-02-19 09:08] VITALS: BP 130/90
--- OUTSIDE RECORDS SUMMARY | 2025-02-19 09:19 | XMS_ITS | Clinical Summary ---
Author Organization [facility] Address [address] [place] [address] Care Team Providers Care Broiler Supervisor Name Role Phone Unavailable Primary Care Provider Unavailabl e Surgical History Surgery Date Site/Laterality Comments OTHER SURGICAL HISTORY PROCEDURE: AV FISTULA OR GRAFT ARTERIAL PARATHYROIDECTOMY PROCEDURE: HISTORICAL PARATHYROIDECTOMY OTHER SURGICAL HISTORY PROCEDURE: [place] PRTL THYROID LOBECTOMY UNI W/WO ISTHMUSECTOMY Medical History Medical History Date Comments HTN (hypertension) DX:HTN (hyper tension) ESRD (end stage renal diseas e) ([facility] V24, [facility] V28) DX:ESRD (end stage renal dis ease) ([facility]); COMMENT: hd at [facility] er/icu; babu Anxiety DX:Anxiety Depression DX:Depression Bipolar disorder ([facility] V2 4, [facility] V28) DX:Bipolar disorder ([facility]); C OMMENT: [facility] therapist Secondary hyperparathyroidis m ([facility] V24) DX:Secondary hyperparathyroi dism ([facility]) Asthma DX:Asthma Tobacco use DX:Tobacco use Hidradenitis suppurativa DX:Hidr adenitis suppurativa History of substance abuse ( [facility] V24, [facility] V28) DX:History of substance abus e ([facility]) GERD (gastroesophageal reflux disease) DX:GERD [...]
--- OUTSIDE RECORDS SUMMARY | 2025-02-19 09:20 | XMS_ITS | Encounter Summary ---
Author Organization [facility] Address [address] [place] [address] Care Team Providers Care Hand Driller Name Role Phone Marce Alexandre APRN Unavailable Rob Lagunas MD Unavailable Alejandrina Eugene DO Unavailable [phone] Primary Care Provider [phone] Encounter Details Date Type Department Care Team (Late st Contact Info) Description 09/21/2018 Scanned Document [facility] [address] [address] Provider, MD Jason [address] [place] [address] Social History Tobacco Use Types Packs/Day Years [...] filedocumented in this encounter Care Teams Hand Driller Relationship Specialty Start Date End Date Unknown Unknow Provider Address PCP - General 08/20/21 Marce Alexandre APRN [address] [address] Nurse Practitioner Surgery, Transplant 09/26/18 Rob Lagunas MD [address] [place] [address] Referring Provider Nephrology 09/26/18 Eugene Tinoco DO [address] [place] [address] Primary Care Provider Family Medicine 09/26/18 documented as of this encounter
--- OUTSIDE RECORDS SUMMARY | 2025-02-19 09:20 | XMS_ITS | Clinical Summary ---
Author Organization [facility] Address [address] [address] Phone Care Team Providers Care Chief Order Dispatcher Name Role Phone Eugene Tinoco DO Primary Care Provider [phone] Allergies Active Allergy Reactions Criticality Noted Date [...] 10:36 AM EST) HCV ANTIBODY Negative Negative [facility] Comment:Antibodies to HCV no t detected. Does not exclude the possibility of exposure to HCV. 06/24/2018 10:3 6 AM EST 06/24/2018 12:44 PM EST us Varun Robles MD LAB BLOOD BKR ORDERA BLES Final Result [facility] [address] [place] [address] from Last 3 Months or Most Recently Relevant to Health Maintenance Insurance [place] MEDICARE PART A & [place] [id number] [facility] MEDIC[facility] PART A & [place] [address] [facility] PART A & [place] [address] [facility] MEDICARE PART A & [place]IC[place] PART A [place] [address] [facility] PART A & [facility] [place] [place] [id number] MEDICARE PART A & [place] [address] [facility] MEDICARE PART A [place] [id number] MEDICARE PART A & B MEDICARE PART A & B [place] Care Teams Chief Order Dispatcher Relationship Specialty Start Date End Date Eugene Tinoco DO PCP - General Family Medicine 01/31/18 Additional Source Comments The information contained in this document represents components of the legal health record. It is not the complete legal health record.[facility]
--- OUTSIDE RECORDS SUMMARY | 2025-02-19 09:20 | XMS_ITS | Clinical Summary ---
Author Organization [employer] [facility] Address [address] [place] [address] Care Team Providers Care Pi/Senior Research Associate Name Role Phone Unavailable Primary Care Provider Unavailabl e Social History Tobacco Use Types Packs/Day Years Used Date Smoking Tobacco: Never Assessed Sex and Gender Information Value Date Recorded Sex Assigned at Not on file Gender Identity Not on file Sexual Orientation Not on file Plan of Treatment Not on file
--- OUTSIDE RECORDS SUMMARY | 2025-02-19 09:20 | XMS_ITS | Encounter Summary ---
Author Organization [facility] Address [address] [place] [address] Care Team Providers Care Driller Multiple Spindle Name Role Phone Marce Alexandre APRN Unavailable [phone] Rob Lagunas MD Unavailable [phone] Alejandrina Eugene DO Unavailable [phone] Unknown Primary Care Provider [phone] Encounter Details Date Type Department Care Team (Late st Contact Info) Description 08/19/2018 Scanned Document [facility] [address] [address] Provider, MD Jason [address] [place] [address] Social History Tobacco Use Types Packs/Day Years [...] on filedocumented in this encounter Care Teams Driller Multiple Spindle Relationship Specialty Start Date End Date Unknown Unknow Provider Address PCP - General 08/20/21 Marce Alexandre APRN [address] [address] Nurse Practitioner Surgery, Transplant 09/26/18 Rbo Lagunas MD [address] [place] [address] Referring Provider Nephrology 09/26/18 Eugene Tinoco DO [address] [place] [address] Primary Care Provider Family Medicine 09/26/18 documented as of this encounter
--- OUTSIDE RECORDS SUMMARY | 2025-02-19 09:20 | XMS_ITS | Encounter Summary ---
Author Organization [facility] Address [address] [place] [address] Care Team Providers Care Client Technical Professional Name Role Phone Marce Alexandre APRN Unavailable [phone] Rob Lagunas MD Unavailable [phone] Alejandrina Eugene DO Unavailable [phone] Unknown Primary Care Provider [phone] Encounter Details Date Type Department Care Team (Late st Contact Info) Description 09/21/2018 Scanned Document [facility] [address] [address] Provider, MD Jason [address] [place] [address] Social History Tobacco Use Types Packs/Day Years [...] on filedocumented in this encounter Care Teams Client Technical Professional Relationship Specialty Start Date End Date Unknown Unknow Provider Address PCP - General 08/20/21 Marce Alexandre APRN [address] [address] Nurse Practitioner Surgery, Transplant 09/26/18 Rob Lagunas MD [address] [place] [address] Referring Provider Nephrology 09/26/18 Eugene Tinoco DO [address] [place] [address] Primary Care Provider Family Medicine 09/26/18 documented as of this encounter
--- OUTSIDE RECORDS SUMMARY | 2025-02-19 09:20 | XMS_ITS | Patient Health Record ---
Author Organization [facility] Address [address] [facility] [place] [address] Care Team Providers Care Architectural Job Captain Name Role Phone Alexx Baum Primary Care Provider Unavailab Nan Roper Unavailable [phone] Allergies Allergen (clinical drug ingredient) Drug/Non Drug [...] Problem Type II diabetes mellitus without complication ([id number]) Diabetes mellitus without complication (E11.9) Active confirmed Vital Signs Blood pressure diastolic 65 mm Hg 07/05/2024 Height 5ft6in in 07/05/2024 Blood pressure systolic 113 mm Hg 07/05/2024 Weight 198 lbs 07/05/2024 BMI 31.95 kg/m2 07/05/2024 Encounters Encounter Location Date Provider Diagnosis [address] [address] 06/07/2024 Nan Perica Ingrown nail L60.0 ; Diabetes mellitus without complication E11.9 ; Pain in right toe(s) M79.674 and Pain in left toe(s) M79.[address] [address] 07/05/2024 Nan Perica Ingrown nail L60.0 and Diabetes mellitus without complication E11.[address] [address] 03/27/2024 Nan Perica Assessments Encounter Date Diagnosis [...] Inc [address] [place] [address] [id number] Areli Roblesver Self - patient is the insured 7 Medical (General) History Medical History History ICD Code Anxiety asthma Depression Kidney disease Reflux ( GERD) Diabetes mellitus Surgical History Surgery Date(Month/Year) kidney transplant 2020 shoulder replacement Left 2021
--- OUTSIDE RECORDS SUMMARY | 2025-02-19 09:21 | XMS_ITS | Encounter Summary ---
Author Organization [facility] Address [address] [place] [address] Care Team Providers Care Mouthpiece Maker Name Role Phone Marce Alexandre APRN Unavailable Rob Lagunas MD Unavailable Alejandrina Eugene DO Unavailable [phone] Unknown Primary Care Provider [phone] Encounter Details Date Type Department Care Team (Late st Contact Info) Description 09/28/[address] [facility] [address] [address] Provider, MD Jason [address] [place] [address] Social History Tobacco Use Types Packs/Day Years [...] on filedocumented in this encounter Care Teams Mouthpiece Maker Relationship Specialty Start Date End Date Unknown Unknow Provider Address PCP - General 08/20/21 Marce Alexandre APRN [address] [address] Nurse Practitioner Surgery, Transplant 09/26/18 Rob Lagunas MD [address] [place] [address] Referring Provider Nephrology 09/26/18 Eugene Tinoco DO [address] [place] [address] Primary Care Provider Family Medicine 09/26/18 documented as of this encounter
--- OUTSIDE RECORDS SUMMARY | 2025-02-19 09:21 | XMS_ITS | Encounter Summary ---
Author Organization [facility] Address [address] [place] [address] Care Team Providers Care Aircraft Delivery Checker Name Role Phone Marce Alexandre APRN Unavailable [phone] Rob Lagunas MD Unavailable [phone] Eugene Tinoco DO Unavailable [phone] Unknown Primary Care Provider [phone] Encounter Details Date Type Department Care Team (Late st Contact Info) Description 09/27/2018 Scanned Document [facility] [address] [address] Rohini Hairston [place] [address] [address] Social History Tobacco Use Types Packs/Day Years [...] on filedocumented in this encounter Care Teams Aircraft Delivery Checker Relationship Specialty Start Date End Date Unknown Unknow Provider Address PCP - General 08/20/21 Marce Alexandre APRN [address] [address] Nurse Practitioner Surgery, Transplant 09/26/18 Rob Lagunas MD [facility] [place] [address] Referring Provider Nephrology 09/26/18 Eugene Tinoco DO [address] [place] [address] Primary Care Provider Family Medicine 09/26/18 documented as of this encounter
--- OUTSIDE RECORDS SUMMARY | 2025-02-19 09:21 | XMS_ITS | Clinical Summary ---
Author Organization [facility] Address [address] [place] [address] Care Team Providers Care Ceramics Engineer Name Role Phone Marce Alexandre STAN Unavailable [phone] Rob Lagunas MD Unavailable [phone] Eugene Tinoco DO Unavailable Unknown Primary Care Provider [phone] Allergies Active Allergy Reactions Criticality Noted Date Comments Lisinopril Unknown/Patient and Family Unable to Define Medium 09/26/2018 Ibuprofen Other (See Comments) 09/26/2018 Because of kidneys Shellfish Protein-Containing Drug Products Anaphylaxis High 09/26/2018 Sulfa Antibiotics Hives [...] Insurance [place] [id number] MEDICAID OUT OF STATE [facility] [address] [place] [address] MEDICARE PART A & B MEDICAID OUT OF STATE [facility] Care Teams Ceramics Engineer Relationship Specialty Start Date End Date Unknown Unknow Provider Address PCP - General 08/20/21 Marce Alexandre APRN [address] [place] [address] Nurse Practitioner Surgery, Transplant 09/26/18 Rob Lagunas MD [address] [place] [address] Referring Provider Nephrology 09/26/18 Eugene Tinoco DO [address] [place] [address] Primary Care Provider Family Medicine 09/26/18
--- OUTSIDE RECORDS SUMMARY | 2025-02-19 09:21 | XMS_ITS | Encounter Summary ---
Author Organization [facility] Address [address] [place] [address] Care Team Providers Care Marketing Program Manager Name Role Phone Marce Alexandre APRN Unavailable Rob Lagunas MD Unavailable [phone] Eugene Tinoco DO Unavailable [phone] Unknown Primary Care Provider [phone] Encounter Details Date Type Department Care Team (Late st Contact Info) Description 09/29/2018 Scanned Document [facility] [address] [address] Keke Stockton [address] [address] Social History Tobacco Use Types Packs/Day Years [...] on filedocumented in this encounter Care Teams Marketing Program Manager Relationship Specialty Start Date End Date Unknown Unknow Provider Address PCP - General 08/20/21 Marce Alexandre APRN [address] [address] Nurse Practitioner Surgery, Transplant 09/26/18 Rob Lagunas MD [address] [place] [address] Referring Provider Nephrology 09/26/18 Eugene Tinoco DO [address] [place] [address] Primary Care Provider Family Medicine 09/26/18 documented as of this encounter
--- OUTSIDE RECORDS SUMMARY | 2025-02-19 09:21 | XMS_ITS | Encounter Summary ---
Author Organization [facility] Address [address] [place] [address] Care Team Providers Care Tower Foreman Name Role Phone Marce Alexandre STAN Unavailable [phone] Rob Lagunas MD Unavailable [phone] Eugene Tinoco DO Unavailable [phone] Unknown Primary Care Provider [phone] Encounter Details Date Type Department Care Team (Late st Contact Info) Description 09/27/2018 Telephone [facility] Transplant Program & [facility] 85 [facility] [address] [place] [address] Ilene G[place] Social History Tobacco Use [...] because the patient requested to see a energy efficient site manager. I introduced myself to both the [...] filedocumented in this encounter Care Teams Tower Foreman Relationship Specialty Start Date End Date Unknown Unknow Provider Address PCP - General 08/20/21 Marce Alexandre APRN [address] [place] [address] Nurse Practitioner Surgery, Transplant 09/26/18 Rob Lagunas MD [address] [place] [address] Referring Provider Nephrology 09/26/18 Eugene Tinoco DO [address] [place] [address] Primary Care Provider Family Medicine 09/26/18 documented as of this encounter
== END 2025-02-19 09:18 | disposition home or self-care (01) ==
PROVIDERS: PCP Physician Assistant; Visit Provider Physician Assistant
DX: I12.0 Hypertensive chronic kidney disease with stage 5 chronic kidney disease or end stage renal disease (principal); E11.65 Type 2 diabetes mellitus with hyperglycemia; N18.6 End stage renal disease; E66.811 Obesity, class 1; Z68.32 Body mass index [BMI] 32.0-32.9, adult

== ENCOUNTER → 2025-02-19 08:46 | Outpatient (BNVA) | payer MEDICARE, MEDICAID, SELFPAY | PROVIDERS: PCP Physician Assistant; Visit Provider Physician Assistant | DX: E11.65 Type 2 diabetes mellitus with hyperglycemia (principal); E66.811 Obesity, class 1; Z68.32 Body mass index [BMI] 32.0-32.9, adult; I12.0 Hypertensive chronic kidney disease with stage 5 chronic kidney disease or end stage renal disease; E11.22 Type 2 diabetes mellitus with diabetic chronic kidney disease; N18.6 End stage renal disease; Z71.3 Dietary counseling and surveillance | CPT/HCPCS: 83036; 99212 ==

== ENCOUNTER 2025-02-27 06:13 | Outpatient (REF) | payer MEDICARE, MEDICAID, SELFPAY ==
--- OUTSIDE RECORDS SUMMARY | 2024-07-05 06:30 | XMS_ITS ---
Author Organization [facility] Address [address] [place] [address] Care Team Providers Care Parking Meter Attendant Name Role Phone Alexx Baum Primary Care Provider Unavailab Nan Roper Unavailable [phone] REASON FOR VISIT Missbooked Encounters Encounter Location Date Provider Diagnosis [address] [address] 07/05/2024 Nan Phillips Plan Of Treatment No Information Progress Notes * Dara ROBLES RDOB:1975 (49 yo F)Acc No.[id number]:07/05/2024 Progress Note Patient: Dara ABDALLA Provider: Allie Phillips DPM :1975 A ge:48 Y S ex:Female Date:07/05/2024 Address:[address] [place], [place] [id number] Pcp:Alexx Baum Subjective: * Chief Complaints: * [...] 0 07/05/2024 Generated for Printi ng/Fayesig/eTransmitting on: 04/29/2024 06:16 AM EST
--- OUTSIDE RECORDS SUMMARY | 2025-02-27 06:16 | XMS_ITS | Clinical Summary ---
Author Organization [facility] Address [address] [place] [address] Care Team Providers Care Coding Assistant Name Role Phone Unavailable Primary Care Provider [...] meals. 270 Cap 2 3 Active b toxnmnn-B-etnjg acid (NEPHROCAPS) 1 mg per capsuleIndicatio ns:ESRD [...] (two) times daily. 15 g Active b tgijrbm-C-zizxv acid (RENAL CAPS) 1 mg per capsuleIndicatio [...] Overview (01/03/2013): Goes [facility] 2x/week, as No Wash Mill Operator in area will take her as patient due past poor behavior and non-compliance. Eczema ASTHMA MODERATE PERSISTENT Overview (01/02/2013): Tobacco abuse Hyperlipidemia Hidradenitis suppurativa Overview (01/02/2013): Wound care follow up Dr. Mcbride Borderline personality disorder Overview (01/03/2013): Non-compliant with psych f/u. GERD (gastroesophageal reflux disease) Constipation Allergic rhinitis Vulvar candidiasis Right hip pain Immunizations Immunization Administration Dates Next Due Hep B, Adult/Adol (KENYBXD-D-YXYAO/RECOMBIVAX-ADULT) 08/09/2008,07/19/2008,03/06/2008 PPD 07/03/2005 Social History Tobacco Use Types Packs/Day Years Used Date Smoking Tobacco: Never Assessed Comments Unknown Sex and Gender Information Value Date Recorded Sex Assigned at Not on file Legal Sex Female 11:36 AM PDT Gender Identity Not on file Sexual Orientation Not on file Plan of Treatment Not on file Insurance [place]
--- OUTSIDE RECORDS SUMMARY | 2025-02-27 06:16 | XMS_ITS | Encounter Summary ---
Author Organization [facility] Address [address] [place] [address] Care Team Providers Care Post Doc Fellowship Name Role Phone Marce Alexandre APRN Unavailable Rob Lagunas MD Unavailable [phone] Alejandrina Eugene DO Unavailable [phone] Unknown Primary Care Provider [phone] Encounter Details Date Type Department Care Team (Late st Contact Info) Description 09/21/2018 Scanned Document [facility] Transplant Program [facility] [address] [address] Provider, MD Jason [address] [place] [address] Social History Tobacco Use Types Packs/Day Years [...] on filedocumented in this encounter Care Teams Post Doc Fellowship Relationship Specialty Start Date End Date Unknown Unknow Provider Address PCP - General 08/20/21 Marce Alexandre APRN [address] [address] Nurse Practitioner Surgery, Transplant 09/26/18 Rob Lagunas MD [address] [place] [address] Referring Provider Nephrology 09/26/18 Eugene Tinoco DO [address] [place] [address] Primary Care Provider Family Medicine 09/26/18 documented as of this encounter
--- OUTSIDE RECORDS SUMMARY | 2025-02-27 06:16 | XMS_ITS | Clinical Summary ---
Author Organization [facility] Address [address] [place] [address] Care Team Providers Care Impress Associate Name Role Phone Unavailable Primary Care Provider Unavailabl e Surgical History Surgery Date Site/Laterality Comments OTHER SURGICAL HISTORY PROCEDURE: AV FISTULA OR GRAFT ARTERIAL PARATHYROIDECTOMY PROCEDURE: HISTORICAL PARATHYROIDECTOMY OTHER SURGICAL HISTORY PROCEDURE: AR PRTL THYROID LOBECTOMY UNI W/WO ISTHMUSECTOMY Medical History Medical History Date Comments HTN (hypertension) DX:HTN (hyper tension) ESRD (end stage renal diseas e) ([facility] V24, [facility] V28) DX:ESRD (end stage renal dis ease) ([facility]); COMMENT: hd at [facility] er/icu; babu Anxiety DX:Anxiety Depression DX:Depression Bipolar disorder ([facility] V2 4, [facility] V28) DX:Bipolar disorder ([facility]); C OMMENT: [facility] Secondary hyperparathyroidis m ([facility] V24) DX:Secondary hyperparathyroi dism ([facility]) Asthma DX:Asthma Tobacco use DX:Tobacco use Hidradenitis suppurativa DX:Hidr adenitis suppurativa History of substance abuse ( [facility] V24, [facility] V28) DX:History of substance abus e ([facility]) GERD (gastroesophageal reflux disease) DX:GERD (gastroesophageal [...] Depression Screening 04/19/2024 COVID-19 Vaccine (1 - 2024-2 6 season) 2024 Influenza Vaccine (#1) 2024 RSV [...]
--- OUTSIDE RECORDS SUMMARY | 2025-02-27 06:16 | XMS_ITS | Clinical Summary ---
Author Organization [facility] Address [address] [address] Phone Care Team Providers Care Rn Cvor Name Role Phone Eugene Tinoco DO Primary Care Provider [phone] Allergies Active Allergy Reactions Criticality Noted Date [...] this topic HEPATITIS C SCREENING Completed 06/24/2018 , 06/24/2018, 06/24/2018 HIV ONE-TIME SCREENING (18-65 YEARS) Completed [...] 10:36 AM EST) HCV ANTIBODY Negative Negative [facility] Comment:Antibodies to HCV no t detected. Does not exclude the possibility of exposure to HCV. 06/24/2018 10:3 6 AM EST 06/24/2018 12:44 PM EST us Varun Robles MD LAB BLOOD BKR ORDERA BLES Final Result [address] [address] from Last 3 Months or Most Recently Relevant to Health Maintenance [place] & [place] [facility] A & B [facility] [place] [address] [facility] MEDICARE PART A & [facility] [id number] MED[address]ARE PART A & [place] [address] [facility] MEDICARE PART A & B [facility] MEDIC[facility] PART A & [place] [address] [facility] [id number] MEDICARE PART A & [place] A & B [facility] [place] [address] MEDICARE PART A & [place] Care Teams Rn Cvor Relationship Specialty Start Date End Date AlejandrinaEugene DO PCP - General Family Medicine 01/31/18 Additional Source Comments The information contained in this document represents components of the legal health record. It is not the complete legal health record.[facility]
--- OUTSIDE RECORDS SUMMARY | 2025-02-27 06:16 | XMS_ITS | Encounter Summary ---
Author Organization [facility] Address [address] [place] [address] Care Team Providers Care Footwear Sales Representative Name Role Phone Marce Alexandre APRN Unavailable Rob Lagunas MD Unavailable [phone] Alejandrina Eugene DO Unavailable [phone] Unknown Primary Care Provider [phone] Encounter Details Date Type Department Care Team (Late st Contact Info) Description 08/19/2018 Scanned Document [facility] Transplant Program & [facility] [address] [address] Provider, MD Jason [address] [place] [address] Social History Tobacco Use Types Packs/Day Years [...] on filedocumented in this encounter Care Teams Footwear Sales Representative Relationship Specialty Start Date End Date Unknown Unknow Provider Address PCP - General 08/20/21 Marce Alexandre APRN [address] [address] Nurse Practitioner Surgery, Transplant 09/26/18 Rob Lagunas MD [address] [place] [address] Referring Provider Nephrology 09/26/18 Eugene Tinoco DO [address] [place] [address] Primary Care Provider Family Medicine 09/26/18 documented as of this encounter
--- OUTSIDE RECORDS SUMMARY | 2025-02-27 06:16 | XMS_ITS | Encounter Summary ---
Author Organization [facility] Address [address] [place] [address] Care Team Providers Care Seed Trucker Name Role Phone Marce Alexandre APRN Unavailable Rob Lagunas MD Unavailable Alejandrina Eugene DO Unavailable [phone] Unknown Primary Care Provider [phone] Encounter Details Date Type Department Care Team (Late st Contact Info) Description 09/21/2018 Scanned Document [facility] Transplant Program & [facility] [address] [address] Provider, MD Jason [address] [place] [address] Social History Tobacco Use Types Packs/Day Years [...] on filedocumented in this encounter Care Teams Seed Trucker Relationship Specialty Start Date End Date Unknown Unknow Provider Address PCP - General 08/20/21 Marce Alexandre APRN [address] [address] Nurse Practitioner Surgery, Transplant 09/26/18 Rob Lagunas MD [address] [place] [address] Referring Provider Nephrology 09/26/18 Eugene Tinoco DO [address] [place] [address] Primary Care Provider Family Medicine 09/26/18 documented as of this encounter
--- OUTSIDE RECORDS SUMMARY | 2025-02-27 06:17 | XMS_ITS | Encounter Summary ---
Author Organization [facility] Address [address] [place] [address] Care Team Providers Care Rare/Endangered Species Specialist Name Role Phone Marce Alexandre APRN Unavailable Rob Lagunas MD Unavailable [phone] Eugene Tinoco DO Unavailable [phone] Unknown Primary Care Provider [phone] Encounter Details Date Type Department Care Team (Late st Contact Info) Description 09/29/2018 Scanned Document [facility] Transplant Program & [facility] [address] [address] Keke Stockton [address] [address] Social History Tobacco Use Types Packs/Day Years [...] on filedocumented in this encounter Care Teams Rare/Endangered Species Specialist Relationship Specialty Start Date End Date Unknown Unknow Provider Address PCP - General 08/20/21 Marce Alexandre APRN [address] [address] Nurse Practitioner Surgery, Transplant 09/26/18 Rob Lagunas MD [address] [place] [address] Referring Provider Nephrology 09/26/18 Eugene Tinoco DO [address] [place] [address] Primary Care Provider Family Medicine 09/26/18 documented as of this encounter
--- OUTSIDE RECORDS SUMMARY | 2025-02-27 06:17 | XMS_ITS | Clinical Summary ---
Author Organization [facility] Address [address] [place] [address] Care Team Providers Care Laser Cutter Name Role Phone Marce Alexandre STAN Unavailable [phone] Rob Lagunas MD Unavailable Eugene Tinoco DO Unavailable [phone] Unknown Primary Care Provider [phone] Allergies Active Allergy Reactions Criticality Noted Date [...] Insurance [place] [id number] MEDICAID OUT OF STATE [facility] [address] [place] [address] MEDICARE PART A & B MEDICAID OUT OF STATE [facility] Care Teams Laser Cutter Relationship Specialty Start Date End Date Unknown Unknow Provider Address PCP - General 08/20/21 Marce Alexandre APRN [address] [place] [address] Nurse Practitioner Surgery, Transplant 09/26/18 Rob Lagunas MD [address] [place] [address] Referring Provider Nephrology 09/26/18 Eugene Tinoco DO [address] [place] [address] Primary Care Provider Family Medicine 09/26/18
--- OUTSIDE RECORDS SUMMARY | 2025-02-27 06:17 | XMS_ITS | Encounter Summary ---
Author Organization [facility] Address [address] [place] [address] Care Team Providers Care Automated Equipment Engineer Technician Name Role Phone Marce Alexandre APRN Unavailable Rob Lagunas MD Unavailable [phone] Alejandrina Eugene DO Unavailable [phone] Unknown Primary Care Provider [phone] Encounter Details Date Type Department Care Team (Late st Contact Info) Description 09/28/2018 Scanned Document [facility] Transplant Program & [facility] [address] [address] Provider, MD Jason [address] [place] [address] Social History Tobacco Use Types Packs/Day Years [...] filedocumented in this encounter Care Teams Automated Equipment Engineer Technician Relationship Specialty Start Date End Date Unknown Unknow Provider Address PCP - General 08/20/21 Marce Alexandre APRN [address] [address] Nurse Practitioner Surgery, Transplant 09/26/18 Rob Lagunas MD [address] [place] [address] Referring Provider Nephrology 09/26/18 Eugene Tinoco DO [address] [place] [address] Primary Care Provider Family Medicine 09/26/18 documented as of this encounter
--- OUTSIDE RECORDS SUMMARY | 2025-02-27 06:17 | XMS_ITS | Patient Health Record ---
Author [facility] Address [address] [facility] [place] [address] Care Team Providers Care Stamp Maker Name Role Phone Alexx Baum Primary Care Provider Unavailab Nan Roper Unavailable [phone] Allergies Allergen (clinical drug ingredient) Drug/Non Drug [...] Problem Type II diabetes mellitus without complication (867036009) Diabetes mellitus without complication (E11.9) Active confirmed Vital Signs Blood pressure diastolic 65 mm Hg 07/05/2024 Height 5ft6in in 07/05/2024 Blood pressure systolic 113 mm Hg 07/05/2024 Weight 198 lbs 07/05/2024 BMI 31.95 kg/m2 07/05/2024 Encounters Encounter Location Date Provider Diagnosis [address] [address] 06/07/2024 Nan Perica Ingrown nail L60.0 ; Diabetes mellitus without complication E11.9 ; Pain in right toe(s) M79.674 and Pain in left toe(s) M79.[address] [address] 07/05/2024 Nan Perica Ingrown nail L60.0 and Diabetes mellitus without complication E11.[address] [address] 03/27/2024 Nan Perica Assessments Encounter Date Diagnosis [...] Inc [address] [place] [address] [id number] Areli Roblesver Self - patient is the insured 7 Medical (General) History Medical History History ICD Code Anxiety asthma Depression Kidney disease Reflux ( GERD) Diabetes mellitus Surgical History Surgery Date(Month/Year) kidney transplant 2020 shoulder replacement Left 2021
--- OUTSIDE RECORDS SUMMARY | 2025-02-27 06:17 | XMS_ITS | Encounter Summary ---
Author Organization [facility] Address [address] [place] [address] Care Team Providers Care Microsoft Bi Architect Name Role Phone Marce Alexandre APRN Unavailable [phone] Rob Lagunas MD Unavailable [phone] Eugene Tinoco DO Unavailable [phone] Unknown Primary Care Provider [phone] Encounter Details Date Type Department Care Team (Late st Contact Info) Description 09/27/2018 Scanned Document [facility] Transplant Program & [facility] [address] [address] Rohini Hairston [place] [address] [address] Social History Tobacco Use Types Packs/Day Years [...] on filedocumented in this encounter Care Teams Microsoft Bi Architect Relationship Specialty Start Date End Date Unknown Unknow Provider Address PCP - General 08/20/21 Marce Alexandre APRN [address] [address] Nurse Practitioner Surgery, Transplant 09/26/18 Rob Lagunas MD [facility] [place] [address] Referring Provider Nephrology 09/26/18 Eugene Tinoco DO [address] [place] [address] Primary Care Provider Family Medicine 09/26/18 documented as of this encounter
[2025-02-27 10:34] LABS: Appearance Urine Cloudy; Glucose Urine UA Negative (Negative); PH 7.0 (5.0-9.0); Specific Gravity - Urine 1.015 (1.005-1.025); UMIC TRIGGER UA YES
[2025-02-27 10:54] LABS: Anion Gap 13 (12-20); Blood Urea Nitrogen 18 mg/dL (9-16); Calcium 8.8 mg/dL (8.4-10.2); Carbon Dioxide 21 mmol/L (22-29); Chloride 111 mmol/L (96-108); Estimated Glomerular Filt Rate 47; Potassium 3.7 mmol/L (3.3-5.1); Sodium 141 mmol/L (135-145)
[2025-02-27 11:00] LABS: Microalbum/Creatinine Ratio Ur 79.4 ug/mg cr (<30); Total Protein Urine Random 30 mg/dL (<12)
[2025-02-28 13:44] LABS: Tacrolimus Prograf 5.2 mcg/L
== END 2025-02-27 06:14 | disposition home or self-care (01) ==
LOC: HO.HMGCLDS 06:13
PROVIDERS: Visit Provider Internal Medicine Critical Care Medicine
DX: E11.65 Type 2 diabetes mellitus with hyperglycemia (principal); Z94.0 Kidney transplant status
CPT/HCPCS: 36415; 80048; 80197; 81001; 82043; 82570; 84156

== ENCOUNTER 2025-04-11 06:03 | Outpatient (REF) | payer MEDICARE, MEDICAID, SELFPAY ==
--- OUTSIDE RECORDS SUMMARY | 2024-07-05 06:30 | XMS_ITS ---
Author Organization [facility] Address [address] [place] [address] Care Team Providers Care Quality Process Engineer Name Role Phone Alexx Baum Primary Care Provider Unavailab Nan Roper Unavailable [phone] REASON FOR VISIT Missbooked Encounters Encounter Location Date Provider Diagnosis [address] [address] 07/05/2024 Nan Phillips Plan Of Treatment No Information Progress Notes * Dara ROBLES RDOB:1975 (49 yo F)Acc No.[id number]:07/05/2024 Progress Note Patient: Dara ABDALLA Provider: Allie Phillips DPM :1975 A ge:48 Y S ex:Female Date:07/05/2024 Address:[address] [place], [place] [id number] Pcp:Alexx Baum Subjective: * Chief Complaints: * [...] 0 07/05/2024 Generated for Printi ng/Faxing/eTransmitting on: 06/12/2024 06:06 AM EST
--- OUTSIDE RECORDS SUMMARY | 2025-04-11 06:06 | XMS_ITS | Encounter Summary ---
Author Organization [facility], Address [address] [place] [address] Phone Care Team Providers Care Tool Setter Name Role Phone Nissa Mckeon DO Primary Care Pro vider Encounter Details Date Type Department Care Team ([facility] Contact Info) Description 04/29/2021 Documentation Only [facility], [address] [place] [address] Rob Lagunas MD [address] [place] [address] Social History Tobacco Use Types [...] on filedocumented in this encounter Care Teams Tool Setter Relationship Specialty Start Date End Date Nissa Mckeon DO PCP - General 04/29/20 documented as of this encounter
--- OUTSIDE RECORDS SUMMARY | 2025-04-11 06:06 | XMS_ITS | Clinical Summary ---
Author Organization [facility] Address [address] [address] Phone Care Team Providers Care Oliver Filter Operator Name Role Phone Eugene Tinoco DO Primary Care Provider [phone] Allergies Active Allergy Reactions Criticality Noted Date [...] 10:36 AM EST) HCV ANTIBODY Negative Negative [facility] Comment:Antibodies to HCV no t detected. Does not exclude the possibility of exposure to HCV. 06/24/2018 10:3 6 AM EST 06/24/2018 12:44 PM EST us Varun Robles MD LAB BLOOD BKR ORDERA BLES Final Result [address] [address] from Last 3 Months or Most Recently Relevant to Health Maintenance Insurance [place] PART A & B [place] A & B [facility] A & B [facility] [address] [facility] MEDIC[facility] PART A & [place] [id number] MEDICARE PART A & [place] [address] [facility] MEDIC[facility] PART A & B [facility] A & [place] [address] [place] [id number] MEDICARE PART A & B [place] PART A & B [facility] [place] [address] MEDICARE PART A & [place] Care Teams Oliver Filter Operator Relationship Specialty Start Date End Date AlejandrinaEugene DO PCP - General Family Medicine 01/31/18 Additional Source Comments The information contained in this document represents components of the legal health record. It is not the complete legal health record.[facility]
--- OUTSIDE RECORDS SUMMARY | 2025-04-11 06:06 | XMS_ITS | Encounter Summary ---
Author Organization [facility], Address [address] [place] [address] Phone Care Team Providers Care Generator Operator Name Role Phone Nissa Mckeon DO Primary Care Pro vider Encounter Details Date Type Department Care Team ([facility] Contact Info) Description 05/23/2021 Documentation Only [facility], [address] [place] [address] Rob Lagunas MD [address] [place] [address] Social History Tobacco Use Types [...] on filedocumented in this encounter Care Teams Generator Operator Relationship Specialty Start Date End Date Nissa Mckeon DO PCP - General 04/29/20 documented as of this encounter
--- OUTSIDE RECORDS SUMMARY | 2025-04-11 06:06 | XMS_ITS | Encounter Summary ---
Author Organization [facility], Address [address] [place] [address] Phone Care Team Providers Care Potter Or Ceramic Artist Name Role Phone Nissa Mckeon DO Primary Care Pro vider Encounter Details Date Type Department Care Team (Late st Contact Info) Description 07/25/2021 Telephone [facility] [address] [place] [address] Danna Jain [address] [place] [address] Social History Tobacco Use Types [...] on filedocumented in this encounter Care Teams Potter Or Ceramic Artist Relationship Specialty Start Date End Date Nissa Mckeon DO PCP - General 04/29/20 documented as of this encounter
--- OUTSIDE RECORDS SUMMARY | 2025-04-11 06:06 | XMS_ITS | Clinical Summary ---
Author Organization [facility] Address [address] [place] [address] Care Team Providers Care Dependency Counselor Name Role Phone Unavailable Primary Care Provider Unavailabl e Surgical History Surgery Date Site/Laterality Comments OTHER SURGICAL HISTORY PROCEDURE: AV FISTULA OR GRAFT ARTERIAL PARATHYROIDECTOMY PROCEDURE: HISTORICAL PARATHYROIDECTOMY OTHER SURGICAL HISTORY PROCEDURE: OK PRTL THYROID LOBECTOMY UNI W/WO ISTHMUSECTOMY Medical History Medical History Date Comments HTN (hypertension) DX:HTN (hyper tension) [place]D (end stage renal diseas e) [place] [place] [facility] [place] DX:ESRD (end stage renal dis ease) ([facility]); COMMENT: hd at [facility] er/icu; babu Anxiety DX:Anxiety Depression DX:Depression Bipolar disorder ([facility] [place], [facility] [place] DX:Bipolar disorder ([facility]); C OMMENT: [facility] therapist Secondary hyperparathyroidis m ([facility] [place] DX:Secondary hyperparathyroi dism ([facility]) Asthma DX:Asthma Tobacco use DX:Tobacco use Hidradenitis suppurativa DX:Hidr adenitis suppurativa History of substance abuse ( [facility] [place] [facility] [place] DX:History of substance abus e ([facility]) GERD (gastroesophageal reflux disease) DX:GERD (gastroesophageal reflux [...] Orientation Not on file Plan of Treatment Health Maintenance Due Date [...]
--- OUTSIDE RECORDS SUMMARY | 2025-04-11 06:07 | XMS_ITS | Encounter Summary ---
Author Organization [facility] Address [address] [place] [address] Care Team Providers Care Installer Apprentice Name Role Phone Marce Alexandre APRN Unavailable Rob Lagunas MD Unavailable [phone] Eugene Tinoco DO Unavailable [phone] Unknown Primary Care Provider [phone] Encounter Details Date Type Department Care Team (Late st Contact Info) Description 09/27/2018 Scanned Document [facility] [address] [address] Rohini Hairston [place] [address] [address] Social History Tobacco Use Types Packs/Day Years [...] on filedocumented in this encounter Care Teams Installer Apprentice Relationship Specialty Start Date End Date Unknown Unknow Provider Address PCP - General 08/20/21 Marce Alexandre APRN [address] [address] Nurse Practitioner Surgery, Transplant 09/26/18 Rob Lagunas MD [facility] [place] [address] Referring Provider Nephrology 09/26/18 Eugene Tinoco DO [address] [place] [address] Primary Care Provider Family Medicine 09/26/18 documented as of this encounter
--- OUTSIDE RECORDS SUMMARY | 2025-04-11 06:07 | XMS_ITS | Clinical Summary ---
Author Organization [facility] Address [address] [place] [address] Care Team Providers Care Circulation Sales Representative Name Role Phone Marce Alexandre STAN Unavailable [phone] Rob Lagunas MD Unavailable [phone] Eugene Tinoco DO Unavailable [phone] Unknown Primary Care Provider [phone] Allergies Active Allergy Reactions Criticality Noted Date [...] [place] [id number] MEDICAID [place] [facility] [place] [facility] [address] [place] [id number] MEDICARE PART A & B MEDICAID [place] [facility] [place] Care Teams Circulation Sales Representative Relationship Specialty Start Date End Date Unknown Unknow Provider Address PCP - General 08/20/21 Marce Alexandre APRN [address] [place] [address] Nurse Practitioner Surgery, Transplant 09/26/18 Rob Lagunas MD [address] [place] [address] Referring Provider Nephrology 09/26/18 Eugene Tinoco DO [address] [address] Primary Care Provider Family Medicine 09/26/18
--- OUTSIDE RECORDS SUMMARY | 2025-04-11 06:07 | XMS_ITS | Encounter Summary ---
Author Organization [facility] Address [address] [place] [address] Care Team Providers Care Data Clerk Name Role Phone Marce Alexandre APRN Unavailable Rob Lagunas MD Unavailable [phone] Alejandrina Eugene DO Unavailable [phone] Unknown Primary Care Provider [phone] Encounter Details Date Type Department Care Team (Late st Contact Info) Description 09/28/2018 Scanned Document [facility] [address] [address] Provider, MD Jason [address] [place] [address] Social History Tobacco Use Types Packs/Day Years [...] on filedocumented in this encounter Care Teams Data Clerk Relationship Specialty Start Date End Date Unknown Unknow Provider Address PCP - General 08/20/21 Marce Alexandre APRN [address] [address] Nurse Practitioner Surgery, Transplant 09/26/18 Rob Lagunas MD [address] [place] [address] Referring Provider Nephrology 09/26/18 Eugene Tinoco DO [address] [place] [address] Primary Care Provider Family Medicine 09/26/18 documented as of this encounter
--- OUTSIDE RECORDS SUMMARY | 2025-04-11 06:07 | XMS_ITS | Encounter Summary ---
Author Organization [facility] Address [address] [place] [address] Care Team Providers Care Holistic Specialist Name Role Phone Marce Alexandre APRN Unavailable Rob Lagunas MD Unavailable [phone] Alejandrina Eugene DO Unavailable [phone] Unknown Primary Care Provider [phone] Encounter Details Date Type Department Care Team (Late st Contact Info) Description 08/19/2018 Scanned Document [facility] [address] [address] Provider, MD Jason [address] [place] [address] Social History Tobacco Use Types Packs/Day Years [...] on filedocumented in this encounter Care Teams Holistic Specialist Relationship Specialty Start Date End Date Unknown Unknow Provider Address PCP - General 08/20/21 Marce Alexandre APRN [address] [address] Nurse Practitioner Surgery, Transplant 09/26/18 Rob Lagunas MD [address] [place] [address] Referring Provider Nephrology 09/26/18 Eugene Tinoco DO [address] [place] [address] Primary Care Provider Family Medicine 09/26/18 documented as of this encounter
--- OUTSIDE RECORDS SUMMARY | 2025-04-11 06:07 | XMS_ITS | Clinical Summary ---
Author Organization [facility] Prior to 09/16/24 Address [address] [place] [address] Care Team Providers Care Title Insurance Examiner Name Role Phone Unavailable Primary Care Provider Unavailabl e Social History Tobacco Use Types Packs/Day Years Used Date Smoking Tobacco: Never Assessed Sex and Gender Information Value Date Recorded Sex Assigned at Not on file Gender Identity Not on file Sexual Orientation Not on file Plan of Treatment Not on file
--- OUTSIDE RECORDS SUMMARY | 2025-04-11 06:07 | XMS_ITS | Encounter Summary ---
Author Organization [facility] Address [address] [place] [address] Care Team Providers Care Steffen House Supervisor Name Role Phone Marce Alexandre APRN Unavailable Rob Lagunas MD Unavailable [phone] Eugene Tinoco DO Unavailable [phone] Unknown Primary Care Provider [phone] Encounter Details Date Type Department Care Team (Late st Contact Info) Description 09/29/2018 Scanned Document [facility] [address] [address] Keke Stockton [address] [address] Social History Tobacco Use Types Packs/Day Years [...] on filedocumented in this encounter Care Teams Steffen House Supervisor Relationship Specialty Start Date End Date Unknown Unknow Provider Address PCP - General 08/20/21 Marce Alexandre APRN [address] [address] Nurse Practitioner Surgery, Transplant 09/26/18 Rob Lagunas MD [address] [place] [address] Referring Provider Nephrology 09/26/18 Eugene Tinoco DO [address] [place] [address] Primary Care Provider Family Medicine 09/26/18 documented as of this encounter
--- OUTSIDE RECORDS SUMMARY | 2025-04-11 06:07 | XMS_ITS | Encounter Summary ---
Author Organization [facility], Address [address] [place] [address] Phone Care Team Providers Care Professional Sports Scout Name Role Phone TejalveronicaNissa Fu DO Primary Care Pro vider Encounter Details Date Type Department Care Team ([facility] Contact Info) Description 05/27/2020 Telephone [facility] [address] [place] [address] Danna Jain [address] [place] [address] Social History Tobacco Use Types [...] AM EST) Coronavirus COVID-19 PCR NEGATIVE (NEG) [facility] Comment: 2019-novel Coronavirus (2019-nCoV) not detected by real-time RT-PCR. Note: If clinical suspicion for COVID-19 is high, continue to maintain precautions and consider repeat testing. Result reported to the [facility]. To prevent errors in diagnosis, test [...] performed by real time PCR utilizing PAMELA Neurodyn0 SARS-CoV-2 test. SARS-CoV-2 Source [facility] Comment: Testing performed or reported by [facility], a Service of [facility], [address] [place] [address] Danyel Ponce MD, Rail Car Loader 05/27/2020 11:5 6 AM EST 05/27/2020 2:49 PM EST Christiane Garay MD LAB HISTORICAL-CONVERSIONS- UNSOLICITED RESULTS Final Result [facility] documented in this encounter Visit Diagnoses Not on filedocumented in this encounter Care Teams Professional Sports Scout Relationship Specialty Start Date End Date Nissa Mckeon DO PCP - General 04/29/20 documented as of this encounter
--- OUTSIDE RECORDS SUMMARY | 2025-04-11 06:07 | XMS_ITS | Patient Health Record ---
[facility] Address [address] [facility] [place] [address] Care Team Providers Care Goat Driver Name Role Phone Alexx Baum Primary Care Provider Unavailab aNn [facility] Unavailable [phone] Allergies Allergen (clinical drug ingredient) Drug/Non Drug [...] Range Notes HEMOGLOBIN A1C (GLYCOHEMOGLO BIN) Reviewed date:03/28/2025 01:51:35 PM Interpretation: Performing Lab: Notes/Report: HEMOGLOBIN A1C % (HH) 6.1 Reason For Referral No Information Medications Medication [...] Problem Type II diabetes mellitus without complication (616163605) Diabetes mellitus without complication (E11.9) Active confirmed Vital Signs Blood pressure diastolic 65 mm Hg 07/05/2024 Height 5ft6in in 07/05/2024 Blood pressure systolic 113 mm Hg 07/05/2024 Weight 198 lbs 07/05/2024 BMI 31.95 kg/m2 07/05/2024 Encounters Encounter Location Date Provider Diagnosis [address] [address] 06/07/2024 Nan Perica Ingrown nail L60.0 ; Diabetes mellitus without complication E11.9 ; Pain in right toe(s) M79.674 and Pain in left toe(s) M79.[address] [address] 07/05/2024 Nan Perica Ingrown nail L60.0 and Diabetes mellitus without complication E11.[address] [address] 03/28/2025 Nan Perica Assessments Encounter Date Diagnosis (ICD [...] Inc [address] [place] [address] [id number] Areli Roblesver Self - patient is the insured 7 Medical (General) History Medical History History ICD Code Anxiety asthma Depression Kidney disease Reflux ( GERD) Diabetes mellitus Surgical History Surgery Date(Month/Year) kidney transplant 2020 shoulder replacement Left 2021
--- OUTSIDE RECORDS SUMMARY | 2025-04-11 06:07 | XMS_ITS | Clinical Summary ---
Author Organization [facility], Address [address] [place] [address] Phone Care Team Providers Care Lead Qa Analyst Name Role Phone Nissa Mckeon DO [...] (04/18/2020): Goes [facility] 2x[facility], as No Fluxer in area will take her as patient [...] 05/31/2017 Insurance Medicare Medicaid [place] Care Teams Lead Qa Analyst Relationship Specialty Start Date End Date Nissa Mckeon DO PCP - General 04/29/20
--- OUTSIDE RECORDS SUMMARY | 2025-04-11 06:07 | XMS_ITS | Encounter Summary ---
Author Organization [facility] Address [address] [place] [address] Care Team Providers Care Bosom Presser Name Role Phone Marce Alexandre APRN Unavailable [phone] Rob Lagunas MD Unavailable [phone] Alejandrina Eugene DO Unavailable [phone] Unknown Primary Care Provider [phone] Encounter Details Date Type Department Care Team (Late st Contact Info) Description 09/21/[address] [facility] [address] [address] Provider, MD Jason [address] [place] [address] Social History Tobacco Use Types Packs/Day Years [...] on filedocumented in this encounter Care Teams Bosom Presser Relationship Specialty Start Date End Date Unknown Unknow Provider Address PCP - General 08/20/21 Marce Alexandre APRN [address] [address] Nurse Practitioner Surgery, Transplant 09/26/18 Rob Lagunas MD [address] [place] [address] Referring Provider Nephrology 09/26/18 Eugene Tinoco DO [address] [place] [address] Primary Care Provider Family Medicine 09/26/18 documented as of this encounter
--- OUTSIDE RECORDS SUMMARY | 2025-04-11 06:07 | XMS_ITS | Encounter Summary ---
Author Organization [facility] Address [address] [place] [address] Care Team Providers Care Reading Specialist Name Role Phone Marce Alexandre APRN Unavailable [phone] Rob Lagunas MD Unavailable [phone] Alejandrina Eugene DO Unavailable [phone] Unknown Primary Care Provider [phone] Encounter Details Date Type Department Care Team (Late st Contact Info) Description 09/21/2018 Scanned Document [facility] [address] [address] Provider, MD Jason [address] [place] [address] Social History Tobacco Use Types Packs/Day Years [...] on filedocumented in this encounter Care Teams Reading Specialist Relationship Specialty Start Date End Date Unknown Unknow Provider Address PCP - General 08/20/21 Marce Alexandre APRN [address] [address] Nurse Practitioner Surgery, Transplant 09/26/18 Rob Lagunas MD [address] [place] [address] Referring Provider Nephrology 09/26/18 Eugene Tinoco DO [address] [place] [address] Primary Care Provider Family Medicine 09/26/18 documented as of this encounter
--- OUTSIDE RECORDS SUMMARY | 2025-04-11 06:07 | XMS_ITS | Encounter Summary ---
Author Organization [facility], Address [address] [place] [address] Phone Care Team Providers Care Hydraulic Spinner Name Role Phone Nissa Mckeon DO Primary Care Pro vider Reason for Visit * Reason Comments Med Refill Encounter Details Date Type Department Care Team (Late st Contact Info) Description 07/17/2019 Refill [facility] [address] [place] [address] Wicho Johnson PA [address] [place] [address] Social History Tobacco Use Types [...] on filedocumented in this encounter Care Teams Hydraulic Spinner Relationship Specialty Start Date End Date Nissa Mckeon DO PCP - General 04/29/20 documented as of this encounter
--- OUTSIDE RECORDS SUMMARY | 2025-04-11 06:07 | XMS_ITS | Encounter Summary ---
Author Organization [facility], Address [address] [place] [address] Phone Care Team Providers Care Senior Security Architect Name Role Phone Nissa Mckeon DO Primary Care Pro vider Reason for Visit * Reason Comments Med Refill Encounter Details Date Type Department Care Team (Late st Contact Info) Description 07/16/2020 Refill [facility] [address] [place] [address] Wicho Johnson PA [address] [place] [address] [place] [address] Social History Tobacco Use Types [...] filedocumented in this encounter Care Teams Senior Security Architect Relationship Specialty Start Date End Date Nissa Mckeon DO PCP - General 04/29/20 documented as of this encounter
[2025-04-11 10:37] LABS: Anion Gap 13 (12-20); Blood Urea Nitrogen 13 mg/dL (9-16); Calcium 8.6 mg/dL (8.4-10.2); Carbon Dioxide 19 mmol/L (22-29); Chloride 109 mmol/L (96-108); Estimated Glomerular Filt Rate 47; Potassium 3.4 mmol/L (3.3-5.1); Sodium 138 mmol/L (135-145)
[2025-04-11 10:53] LABS: Appearance Urine Clear; Glucose Urine UA Negative (Negative); PH 6.5 (5.0-9.0); Specific Gravity - Urine 1.015 (1.005-1.025); UMIC TRIGGER UA YES
[2025-04-11 11:51] LABS: Microalbum/Creatinine Ratio Ur 48.6 ug/mg cr (<30)
[2025-04-12 10:24] LABS: Tacrolimus Prograf 4.1 mcg/L
== END 2025-04-11 06:04 | disposition home or self-care (01) ==
LOC: HO.HMGCLDS 06:03
PROVIDERS: PCP Physician Assistant; Visit Provider Internal Medicine Critical Care Medicine
DX: N18.6 End stage renal disease (principal); Z94.0 Kidney transplant status
CPT/HCPCS: 36415; 80048; 80197; 81001; 81003; 82043; 82570

== ENCOUNTER 2025-04-13 08:45 | Outpatient (REF) | payer MEDICARE, MEDICAID, SELFPAY ==
--- OUTSIDE RECORDS SUMMARY | 2024-07-05 06:30 | XMS_ITS ---
Author Organization [facility] Address [address] [place] [address] Care Team Providers Care Hair Colorist Name Role Phone Alexx Baum Primary Care Provider Unavailab Nan Roper Unavailable [phone] REASON FOR VISIT Missbooked Encounters Encounter Location Date Provider Diagnosis [address] [address] 07/05/2024 Nan Phillips Plan Of Treatment No Information Progress Notes * Dara ROBLES RDOB:1975 (49 yo F)Acc No.[id number]:07/05/2024 Progress Note Patient: Dara ABDALLA Provider: Allie Phillips DPM :1975 A ge:48 Y S ex:Female Date:07/05/2024 Address:[address] [place], [place] [id number] Pcp:Alexx Baum Subjective: * Chief Complaints: * [...] 0 07/05/2024 Generated for Printi ng/Fayesig/eTransmitting on: 1 06/14/2024 08:47 AM EST
--- NOTE | ~2025-04-13 | MM_ITS ---
EXAMINATION: MM SCREENING DIGITAL BREAST TOMOSYNTHESIS, BILATERAL CLINICAL INFORMATION: -Screening. Asymptomatic. -History bilateral reduction mammoplasty. -Right ultrasound-guided needle core biopsy on July 31, 2020. Pathology results: Benign breast tissue with a pseudoprogression of pneumatosis stromal hyperplasia. Hydromark open coil shape clip. COMPARISON: Comparison made to multiple prior, most recent April 07, 2024, and most remote May 10, 2019. TECHNIQUE: Digital breast tomosynthesis is performed in mediolateral oblique and craniocaudal views along with computer-aided detection (CAD). Synthesized 2D images are generated from the tomosynthesis. FINDINGS: BREAST COMPOSITION: There are scattered areas of fibroglandular density. RIGHT BREAST: Prior reduction mammoplasty. Tissue marker from previous needle core biopsy. No significant masses, suspicious calcifications or other abnormalities are seen. LEFT BREAST: Prior reduction mammoplasty. No significant masses, suspicious calcifications or other abnormalities are seen. MM/MM tomosynthesis screening BI IMPRESSION: BILATERAL BREASTS: Benign, no mammographic evidence of malignancy. Normal interval follow-up is recommended in 12 months. ASSESSMENT: BI-RADS: Category 2: Benign RECOMMENDATION: Routine annual mammography screening. FOLLOW-UP: 1 year F/U This examination should not preclude the clinical evaluation of a suspicious palpable abnormality. This patient's information was entered into a reminder system with a target due date for their next mammogram. Electronically signed by: Kal Figueredo MD 04/14/2025 05:56 PM [facility]
--- OUTSIDE RECORDS SUMMARY | 2025-04-13 08:48 | XMS_ITS | Encounter Summary ---
Author Organization [facility], Address [address] [place] [address] Phone Care Team Providers Care Route Delivery Supervisor Name Role Phone Nissa Mckeon DO Primary Care Pro vider Reason for Visit * Reason Comments Med Refill Encounter Details Date Type Department Care Team (Late st Contact Info) Description 07/17/2019 Refill [facility] [address] [place] [address] Wicho Johnson PA [address] [place] [address] Social History Tobacco Use Types [...] on filedocumented in this encounter Care Teams Route Delivery Supervisor Relationship Specialty Start Date End Date Nissa Mckeon DO PCP - General 04/29/20 documented as of this encounter
--- OUTSIDE RECORDS SUMMARY | 2025-04-13 08:48 | XMS_ITS | Encounter Summary ---
Author Organization [facility], Address [address] [place] [address] Phone Care Team Providers Care Shingle Inspector Name Role Phone Nissa Mckeon DO Primary Care Pro vider Encounter Details Date Type Department Care Team ([facility] Contact Info) Description 04/29/2021 Documentation Only [facility], [address] [place] [address] Rob Lagunas MD [address] [place] [address] Social History Tobacco Use Types [...] on filedocumented in this encounter Care Teams Shingle Inspector Relationship Specialty Start Date End Date Nissa Mckeon DO PCP - General 04/29/20 documented as of this encounter
--- OUTSIDE RECORDS SUMMARY | 2025-04-13 08:48 | XMS_ITS | Encounter Summary ---
Author Organization [facility], Address [address] [place] [address] Phone Care Team Providers Care Sleeve Separator Name Role Phone Nissa Mckeon DO Primary Care Pro vider Reason for Visit * Reason Comments Med Refill Encounter Details Date Type Department Care Team (Late st Contact Info) Description 07/16/2020 Refill [facility] [address] [place] [address] Wicho Johnson PA [address] [place] [address] [place] [address] Social History Tobacco Use Types [...] on filedocumented in this encounter Care Teams Sleeve Separator Relationship Specialty Start Date End Date Nissa Mckeon DO PCP - General 04/29/20 documented as of this encounter
--- OUTSIDE RECORDS SUMMARY | 2025-04-13 08:48 | XMS_ITS | Encounter Summary ---
Author Organization [facility] Address [address] [place] [address] Care Team Providers Care Director Public Service Name Role Phone Marce Alexandre APRN Unavailable Rob Lagunas MD Unavailable [phone] Eugene Tinoco DO Unavailable [phone] Unknown Primary Care Provider [phone] Encounter Details Date Type Department Care Team (Late st Contact Info) Description 09/27/2018 Scanned Document [facility] [address] [address] Rohini Hairston [place] [address] [address] Social History Tobacco Use Types Packs/Day Years [...] filedocumented in this encounter Care Teams Director Public Service Relationship Specialty Start Date End Date Unknown Unknow Provider Address PCP - General 08/20/21 Marce Alexandre APRN [address] [address] Nurse Practitioner Surgery, Transplant 09/26/18 Rob Lagunas MD [facility] [place] [address] Referring Provider Nephrology 09/26/18 Eugene Tinoco DO [address] [place] [address] Primary Care Provider Family Medicine 09/26/18 documented as of this encounter
--- OUTSIDE RECORDS SUMMARY | 2025-04-13 08:48 | XMS_ITS | Encounter Summary ---
Author Organization [facility] Address [address] [place] [address] Care Team Providers Care Damage Inside Adjuster Name Role Phone Marce Alexandre APRN Unavailable Rob Lagunas MD Unavailable [phone] Eugene Tinoco DO Unavailable Unknown Primary Care Provider [phone] Encounter Details Date Type Department Care Team (Late st Contact Info) Description 09/29/2018 Scanned Document [facility] [address] [address] Keke Stockton [address] [address] Social History Tobacco Use Types Packs/Day Years [...] on filedocumented in this encounter Care Teams Damage Inside Adjuster Relationship Specialty Start Date End Date Unknown Unknow Provider Address PCP - General 08/20/21 Marce Alexandre APRN [address] [address] Nurse Practitioner Surgery, Transplant 09/26/18 Rob Lagunas MD [address] [place] [address] Referring Provider Nephrology 09/26/18 Eugene Tinoco DO [address] [place] [address] Primary Care Provider Family Medicine 09/26/18 documented as of this encounter
--- OUTSIDE RECORDS SUMMARY | 2025-04-13 08:48 | XMS_ITS | Clinical Summary ---
Author Organization [facility], Address [address] [place] [address] Phone Care Team Providers Care Diesel Truck Mechanic Name Role Phone Nissa Mckeon DO Primary [...] (04/18/2020): Goes [facility]week, as No Powder Guard in area will take her as patient [...] 05/31/2017 Insurance Medicare Medicaid [place] Care Teams Diesel Truck Mechanic Relationship Specialty Start Date End Date Nissa Mckeon DO PCP - General 04/29/20
--- OUTSIDE RECORDS SUMMARY | 2025-04-13 08:48 | XMS_ITS | Encounter Summary ---
Author Organization [facility] Address [address] [place] [address] Care Team Providers Care Senior Electronics Technician Name Role Phone Marce Alexandre APRN Unavailable [phone] Rob Lagunas MD Unavailable Alejandrina Eugene DO Unavailable [phone] Unknown Primary Care Provider [phone] Encounter Details Date Type Department Care Team (Late st Contact Info) Description 09/21/2018 Scanned Document [facility] [address] [address] Provider, MD Jason [address] [place] [address] Social History Tobacco Use Types Packs/Day Years [...] filedocumented in this encounter Care Teams Senior Electronics Technician Relationship Specialty Start Date End Date Unknown Unknow Provider Address PCP - General 08/20/21 Marce Alexandre APRN [address] [address] Nurse Practitioner Surgery, Transplant 09/26/18 Rob Lagunas MD [address] [place] [address] Referring Provider Nephrology 09/26/18 Eugene Tinoco DO [address] [place] [address] Primary Care Provider Family Medicine 09/26/18 documented as of this encounter
--- OUTSIDE RECORDS SUMMARY | 2025-04-13 08:48 | XMS_ITS | Encounter Summary ---
Author Organization [facility] Address [address] [place] [address] Care Team Providers Care Microbiology Manager Name Role Phone Marce Alexandre APRN Unavailable Rob Lagunas MD Unavailable [phone] Alejandrina Eugene DO Unavailable [phone] Primary Care Provider [phone] Encounter Details Date Type Department Care Team (Late st Contact Info) Description 08/19/2018 Scanned Document [facility] [address] [address] Provider, MD Jason [address] [place] [address] Social History Tobacco Use Types Packs/Day Years [...] on filedocumented in this encounter Care Teams Microbiology Manager Relationship Specialty Start Date End Date Unknown Unknow Provider Address PCP - General 08/20/21 Marce Alexandre APRN [address] [address] Nurse Practitioner Surgery, Transplant 09/26/18 Rob Lagunas MD [address] [place] [address] Referring Provider Nephrology 09/26/18 Eugene Tinoco DO [address] [place] [address] Primary Care Provider Family Medicine 09/26/18 documented as of this encounter
--- OUTSIDE RECORDS SUMMARY | 2025-04-13 08:48 | XMS_ITS | Encounter Summary ---
Author Organization [facility], Address [address] [place] [address] Phone Care Team Providers Care Demolition Expert Name Role Phone Nissa Mckeon DO Primary Care Pro vider Encounter Details Date Type Department Care Team (Late st Contact Info) Description 07/25/2021 Telephone [facility] - [facility] [address] [place] [address] Danna Jain [address] [place] [address] Social History Tobacco Use Types [...] on filedocumented in this encounter Care Teams Demolition Expert Relationship Specialty Start Date End Date Nissa Mckeon DO PCP - General 04/29/20 documented as of this encounter
--- OUTSIDE RECORDS SUMMARY | 2025-04-13 08:48 | XMS_ITS | Encounter Summary ---
Author Organization [facility] Address [address] [place] [address] Care Team Providers Care Marketing Editor Name Role Phone Marce Alexandre APRN Unavailable Rob Lagunas MD Unavailable Alejandrina Eugene DO Unavailable [phone] Unknown Primary Care Provider [phone] Encounter Details Date Type Department Care Team (Late st Contact Info) Description 09/21/2018 Scanned Document [facility] [address] [address] Provider, MD Jason [address] [place] [address] Social History Tobacco Use Types Packs/Day Years [...] filedocumented in this encounter Care Teams Marketing Editor Relationship Specialty Start Date End Date Unknown Unknow Provider Address PCP - General 08/20/21 Marce Alexandre APRN [address] [address] Nurse Practitioner Surgery, Transplant 09/26/18 Rob Lagunas MD [address] [place] [address] Referring Provider Nephrology 09/26/18 Eugene Tinoco DO [address] [place] [address] Primary Care Provider Family Medicine 09/26/18 documented as of this encounter
--- OUTSIDE RECORDS SUMMARY | 2025-04-13 08:48 | XMS_ITS | Clinical Summary ---
Author Organization [facility] Prior to 09/16/24 Address [address] [place] [address] Care Team Providers Care Biomaterials Engineer Name Role Phone Unavailable Primary Care Provider Unavailabl e Social History Tobacco Use Types Packs/Day Years Used Date Smoking Tobacco: Never Assessed Sex and Gender Information Value Date Recorded Sex Assigned at Not on file Gender Identity Not on file Sexual Orientation Not on file Plan of Treatment Not on file
--- OUTSIDE RECORDS SUMMARY | 2025-04-13 08:48 | XMS_ITS | Encounter Summary ---
Author Organization [facility] Address [address] [place] [address] Care Team Providers Care Technology Strategist Name Role Phone Marce Alexandre APRN Unavailable Rob Lagunas MD Unavailable Alejandrina Eugene DO Unavailable [phone] Unknown Primary Care Provider [phone] Encounter Details Date Type Department Care Team (Late st Contact Info) Description 09/28/2018 Scanned Document [facility] [address] [address] Provider, MD Jason [address] [place] [address] Social History Tobacco Use Types Packs/Day Years [...] on filedocumented in this encounter Care Teams Technology Strategist Relationship Specialty Start Date End Date Unknown Unknow Provider Address PCP - General 08/20/21 Marce Alexandre APRN [address] [address] Nurse Practitioner Surgery, Transplant 09/26/18 Rob Lagunas MD [address] [place] [address] Referring Provider Nephrology 09/26/18 Eugene Tinoco DO [address] [place] [address] Primary Care Provider Family Medicine 09/26/18 documented as of this encounter
--- OUTSIDE RECORDS SUMMARY | 2025-04-13 08:48 | XMS_ITS | Encounter Summary ---
Author Organization [facility], Address [address] [place] [address] Phone Care Team Providers Care Talent Development Coordinator Name Role Phone Nissa Mckeon DO Primary Care Pro vider Encounter Details Date Type Department Care Team ([facility] Contact Info) Description 05/23/2021 Documentation Only [facility], [address] [place] [address] Rob Lagunas MD [address] [place] [address] Social History Tobacco Use Types [...] on filedocumented in this encounter Care Teams Talent Development Coordinator Relationship Specialty Start Date End Date Nissa Mckeon DO PCP - General 04/29/20 documented as of this encounter
--- OUTSIDE RECORDS SUMMARY | 2025-04-13 08:48 | XMS_ITS | Encounter Summary ---
Author Organization [facility], Address [address] [place] [address] Phone Care Team Providers Care Local Area Network Administrator Name Role Phone TejalveronicaNissa Fu DO Primary Care Pro vider Encounter Details Date Type Department Care Team ([facility] Contact Info) Description 05/27/2020 Telephone [facility] [address] [place] [address] Danna Jain [address] [place] [address] Social History Tobacco Use Types [...] AM EST) Coronavirus COVID-19 PCR NEGATIVE (NEG) [facility] Comment: 2019-novel Coronavirus (2019-nCoV) not detected by real-time RT-PCR. Note: If clinical suspicion for COVID-19 is high, continue to maintain precautions and consider repeat testing. Result reported to the [facility]. To prevent errors in diagnosis, test [...] performed by real time PCR utilizing [employer] SARS-CoV-2 test. SARS-CoV-2 Source [facility] Comment: Testing performed or reported by [facility], a Service of [facility], [address] [place] [address] Danyel Ponce MD, Supervisor [employer] 05/27/2020 11:5 6 AM EST 05/27/2020 2:49 PM EST Christiane Garay MD LAB HISTORICAL-CONVERSIONS- UNSOLICITED RESULTS Final Result [facility] documented in this encounter Visit Diagnoses Not on filedocumented in this encounter Care Teams Local Area Network Administrator Relationship Specialty Start Date End Date Nissa Mckeon DO PCP - General 04/29/20 documented as of this encounter
--- OUTSIDE RECORDS SUMMARY | 2025-04-13 08:48 | XMS_ITS | Clinical Summary ---
Author Organization [facility] Address [address] [place] [address] Care Team Providers Care Metrology Specialist Name Role Phone Unavailable Primary Care Provider Unavailabl e Surgical History Surgery Date Site/Laterality Comments OTHER SURGICAL HISTORY PROCEDURE: AV FISTULA OR GRAFT ARTERIAL PARATHYROIDECTOMY PROCEDURE: HISTORICAL PARATHYROIDECTOMY OTHER SURGICAL HISTORY PROCEDURE: [place] [facility] THYROID LOBECTOMY UNI W/WO ISTHMUSECTOMY Medical History Medical History Date Comments HTN (hypertension) DX:HTN (hyper tension) ESRD (end stage renal diseas e) ([facility] V24, [facility] V28) DX:ESRD (end stage renal dis ease) ([facility]); COMMENT: hd at [facility] er/icu; babu Anxiety DX:Anxiety Depression DX:Depression Bipolar disorder ([facility] V2 4, [facility] V28) DX:Bipolar disorder ([facility]); C OMMENT: [facility] therapist Secondary hyperparathyroidis m ([facility] V24) DX:Secondary hyperparathyroi dism ([facility]) Asthma DX:Asthma Tobacco use DX:Tobacco use Hidradenitis suppurativa DX:Hidr adenitis suppurativa History of substance abuse ( [facility] V24, [facility] V28) DX:History of substance abus e ([facility]) GERD (gastroesophageal reflux disease) DX:GERD (gastroesophageal reflux [...]
--- OUTSIDE RECORDS SUMMARY | 2025-04-13 08:48 | XMS_ITS | Clinical Summary ---
Author Organization [facility] Address [address] [address] Phone Care Team Providers Care Tank Processor Name Role Phone Eugene Tinoco DO Primary Care Provider [phone] Allergies Active Allergy Reactions Criticality Noted Date [...] 10:36 AM EST) HCV ANTIBODY Negative Negative [facility] Comment:Antibodies to HCV no t detected. Does not exclude the possibility of exposure to HCV. 06/24/2018 10:3 6 AM EST 06/24/2018 12:44 PM EST us Varun Robles MD LAB BLOOD BKR ORDERA BLES Final Result [address] [address] from Last 3 Months or Most Recently Relevant to Health Maintenance [place] [facility] [place] [address] [facility] PART [facility] & [facility] [place] [id number] MED[address] [place] [address] [facility] MEDIC[facility] PART A & [facility] A & [place] [address] [facility] [place] [id number] MEDICARE PART A & [place] B [facility] [place] [address] MEDICARE PART A & [place] Care Teams Tank Processor Relationship Specialty Start Date End Date AlejandrinaEugene DO PCP - General Family Medicine 01/31/18 Additional Source Comments The information contained in this document represents components of the legal health record. It is not the complete legal health record.[facility]
--- OUTSIDE RECORDS SUMMARY | 2025-04-13 08:48 | XMS_ITS | Patient Health Record ---
Author Organization [facility] Address [address] [facility] [place] [address] Care Team Providers Care Tobacco Weigher Name Role Phone Alexx Baum Primary Care Provider Unavailab Nan Roper Unavailable [phone] Allergies Allergen (clinical drug ingredient) Drug/Non Drug [...] Problem Type II diabetes mellitus without complication ([id number]) Diabetes mellitus without complication (E11.9) Active confirmed Vital Signs Blood pressure diastolic 65 mm Hg 07/05/2024 Height 5ft6in in 07/05/2024 Blood pressure systolic 113 mm Hg 07/05/2024 Weight 198 lbs 07/05/2024 BMI 31.95 kg/m2 07/05/2024 Encounters Encounter Location Date Provider Diagnosis [address] [address] 06/07/2024 Nan Perica Ingrown nail L60.0 ; Diabetes mellitus without complication E11.9 ; Pain in right toe(s) M79.674 and Pain in left toe(s) M79.[address] [address] 07/05/2024 Nan Perica Ingrown nail L60.0 and Diabetes mellitus without complication E11.[address] [address] 03/28/2025 Nan Perica Assessments Encounter Date Diagnosis [...] Inc [address] [place] [address] [id number] Areli Roblesver Self - patient is the insured 7 Medical (General) History Medical History History ICD Code Anxiety asthma Depression Kidney disease Reflux ( GERD) Diabetes mellitus Surgical History Surgery Date(Month/Year) kidney transplant 2020 shoulder replacement Left 2021
--- OUTSIDE RECORDS SUMMARY | 2025-04-13 08:48 | XMS_ITS | Clinical Summary ---
Author Organization [facility] Address [address] [place] [address] Care Team Providers Care Event Host Name Role Phone Marce Alexandre STAN Unavailable [phone] Rob Lagunas MD Unavailable [phone] Eugene Tinoco DO Unavailable [phone] Unknown Primary Care Provider [phone] Allergies Active Allergy Reactions Criticality Noted Date [...] Insurance [place] [id number] MEDICAID OUT OF STATE [facility] [place] [address] MEDICARE PART A & B MEDICAID OUT OF STATE [facility] Care Teams Event Host Relationship Specialty Start Date End Date Unknown Unknow Provider Address PCP - General 08/20/21 Marce Alexandre APRN [address] [place] [address] Nurse Practitioner Surgery, Transplant 09/26/18 Rob Lagunas MD [address] [place] [address] Referring Provider Nephrology 09/26/18 Eugene Tinoco DO [address] [address] Primary Care Provider Family Medicine 09/26/18
== END 2025-04-13 08:46 | disposition home or self-care (01) ==
LOC: HO.MAMMO 08:45
PROVIDERS: PCP Physician Assistant; Visit Provider Physician Assistant
DX: Z12.31 Encounter for screening mammogram for malignant neoplasm of breast (principal)
CPT/HCPCS: 77063; 77067

== ENCOUNTER → 2025-04-13 08:45 | Outpatient (BNV) | payer MEDICARE, MEDICAID, SELFPAY | PROVIDERS: PCP Physician Assistant; Visit Provider Radiology Body Imaging | DX: Z12.31 Encounter for screening mammogram for malignant neoplasm of breast (principal) | CPT/HCPCS: 77063; 77067 ==

== ENCOUNTER 2025-04-17 15:45 | Outpatient (AMB) | payer MEDICARE, MEDICAID, SELFPAY ==
--- OUTSIDE RECORDS SUMMARY | 2024-07-05 06:30 | XMS_ITS ---
Author Organization [facility] Address [address] [place] [address] Care Team Providers Care Rubbing Bed Operator Name Role Phone Alexx Baum Primary Care Provider Unavailab Nna Roper Unavailable [phone] REASON FOR VISIT Missbooked Encounters Encounter Location Date Provider Diagnosis [address] [address] 07/05/2024 Nan Phillips Plan Of Treatment No Information Progress Notes * Dara ROBLES RDOB:1975 (49 yo F)Acc No.[id number]:07/05/2024 Progress Note Patient: Dara ABDALLA Provider: Allie Phillips DPM :1975 A ge:48 Y S ex:Female Date:07/05/2024 Address:[address] [place], [place] [id number] Pcp:Alexx Baum Subjective: * Chief Complaints: * 1 . Missbooked. * Medical History: Objective: * Vitals: Assessment: Plan: * Treatment: * Images: * The named appointment provid er may or may not be the originator of this progress note, and it is not deemed complete until electronically signed by the appointment provider. Sign off status: Pending * Provider: Allie Phillips DPM Date: 0 07/05/2024 Generated for Printi ng/Faxing/eTransmitting on: 06:55 PM EST
[2025-04-17 15:45] VITALS: BP 120/70; BMI 32.3
--- NOTE | 2025-04-17 15:45 | HO.NEPHOV_ITS ---
Vital Signs 04/17/25 15:45 Height 5 ft 6 in Weight 200 lb BMI 32.3 BP 120/70 Blood Pressure Location Rt brachial Intake Visit Reasons: f/u w/labs Gravel Weigher Required: No Accompanied by: Self / Same As Patient Allergies lisinopril (LISINOPRIL) Allergy (Intermediate, Verified 04/17/25 15:49) EYES SWELL SHUT, angioedema, angioedema tramadol (TRAMADOL) Allergy (Intermediate, Verified 04/17/25 15:49) HIVES piperacillin (Zosyn) Allergy (Mild, Verified 04/17/25 15:49) rash cefazolin Allergy (Unknown, Verified 04/17/25 15:49) Unknown hydrocodone (From VICODIN) Allergy (Unknown, Verified 04/17/25 15:49) UNKNOWN ibuprofen (From Motrin) Allergy (Unknown, Verified 04/17/25 15:49) Unknown shellfish derived Allergy (Unknown, Verified 04/17/25 15:49) Unknown Sulfa (Sulfonamide Antibiotics) (SULFA (SULFONAMIDE ANTIBIOTICS)) Allergy (Unknown, Verified 04/17/25 15:49) UNKNOWN vancomycin Allergy (Unknown, Verified 04/17/25 15:49) rash azithromycin Adverse Reaction (Intermediate, Verified 04/17/25 15:49) dizziness/AVERY Do you need a note to return to daycare/school/sports/work: No HPI Comments Details: 48-year-old lady with past medical history of ESRD secondary to hypertension re lated atherosclerotic vascular disease who was on dialysis for over 12 years is status post living donor/ disease donor kidney transplant in 09/2020 received donor kidney with KDPI 49% her pre transplant cPRA was 0, EPTS was 22. Donor CMV: + Recipient CMV: + (low risk). She last saw a transplant space operations officer in [place] in Jan 2024, and was discharged from service. September 2024: tacrolimus levels increased to 9.3 and creatinine increased from 1.28 to 1.61. October 2024: after decreasing the tacrolimus levels to 7mg BID, levels down to 7.4 and creatinine improved to 1.20. No new complaints this visits except for has vaginal candidiasis. Made her aware that thiazoles can increase her tacrolimus levels, she states she is only using mucosal and local agents and not taking anything oral. Rest she is doing well, enjoying fishing and going to [employer]. November 2024: She was treated with Metrogyl 500mg BID for 7 days and finished on 11/15 and labs on 11/18/2024 showed creatinine increasing to 1.38 and tacrolimus levels 10.4. December 2024: She took a dose of fluconazole, received Flagyl for 5 days. Currently she is on 3 mg 2 times a day for off tacrolimus and levels are 4.4. Continues to have vaginosis symptoms March 2025: Still continues to have symptoms of bacterial vaginosis, told her we will talk to her hospitality services manager and we will adjust the medication so that she can get it treated. Her most recent tacrolimus levels are 4.1, creatinine 1.22. [facility] Medical History History of pulmonary embolism Chronic kidney disease Ankylosing spondylitis of lumbar region Right lumbar radiculopathy Surgical History S/P kidney transplant Status post dialysis Hx of bilateral breast reduction surgery Family History Mother No problems noted. Father No problems noted. Brother Substance abuse Social History Household Members: None Housing: Apartment Are you a primary patient care nursing assistant to a significant other at home: No Do you presently have visiting nurse or other home services: No Alcohol intake: never Patient Tobacco Use Status: Former Tobacco user Years Smoked: 15 e-Cigarette/Vaping Use: Never Used Second Hand Smoke Exposure: Yes Advance Directives Date on File: 02/26/20 service: No Current occupational status: disabled Gender identity: Female Cognitive needs: No Hearing needs: No Vision needs: Yes (Glasses) Female Reproductive History Menstrual Age of Menarche: 17 Review of Systems Const Details: Const : no body aches, no chills, no excessive sweating and no fatigue Eyes: no blurry vision and no change in vision ENT: no bleeding gums and no change in voice, no dizziness Card: no chest pain, no shortness of breath, no orthopnea, no PND Resp: no cough, no excessive phlegm production, no SOB GI: no abdominal pain and no nausea, no vomiting : no hematuria, no urinary frequency and no difficulty voiding Musc: no abnormal gait, no bone pain Neuro: no abnormal movements, no weakness, no dizziness Psych: no behavioral changes and no change in appetite Endo: no change in body appearance, no cold intolerance, no excessive sweating and no fatigue Physical Exam Vital Signs: Last Vital Signs BP 120/70 04/17/25 15:45 BMI result Body Mass Index 32.3 General: not in any acute distress, comfortable, sitting on the chair Nutritional Appearance: well nourished and weight Eyes: normal position, no icterus Neck: No lymphadenopathy, no thyromegaly Resp: bilateral air entry equal, no added sounds present Cardio: normal S1, S2 heard, no murmur heard, no edema GI: soft, nontender, no guarding, no hepatosplenomegaly : bladder normal to inspection, bladder normal to palpation, no renal angle tenderness Skin: no rashes or lesions noted and elasticity normal Neuro: oriented to person, oriented to place, oriented to time and moves all extremities Results Reviewed Nephrology Results: Sodium, (135-145) 138 mmol/L 04/11/25 Potassium, (3.3-5.1) 3.4 mmol/L 04/11/25 Chloride, (96-108) 109 mmol/L H 04/11/25 Carbon Dioxide, (22-29) 19 mmol/L L 04/11/25 BUN, (9-16) 13 mg/dL 04/11/25 Creatinine, (0.5-1.4) 1.21 mg/dL 04/11/25 Calcium, (8.4-10.2) 8.6 mg/dL 04/11/25 Urine Protein, (Neg-Trace) Trace mg/dL 04/11/25 Urine Creatinine 94.60 mg/dL 04/11/25 Assessment & Plan Assessment & Plan (1) S/P kidney transplant: Comment: post op complication, clots removed kidney surface Code(s): Z94.0 - Kidney transplant status Category: Surgical (2) Hypertension: Code(s): I10 - Essential (primary) hypertension Category: Medical Qualifiers: Hypertension type: primary hypertension Qualified Code(s): I10 - Essential (primary) hypertension Plan 54 F who is s/p living donor/ disease donor kidney transplant in 09/2020 received donor kidney with KDPI 49% , her pre transplant cPRA was 0, EPTS was 22 . Donor CMV: + Recipient CMV: + (low risk) Primary disease: hypertensive atherosclerotic vascular disease Graft function: stable Creatinine increases with rising tacrolimus levels, most recent creatinine 1.21 Urinalysis showed: 1+ protein will quantify with UACR/ UPCR: 48.6 and 198 Immunosuppression: Patient is currently on- tacrolimus 3mg AM BID , tac level 4.1 (tacrolimus goal 4-8). CellCept: 500mg BID taken off prednisone 5mg since due to weight gain. Infections: post transplant needed wound vac for 2 months, none since 2021. hepatitis panel, HIV negative in 06/2024. Prophylaxis: BK/CMV negative in 10/11; monitor every 3-6 months. Vaccinations: Pneumococcal, Shingrix, Hepatitis B shot, COVID 19- received all of them normal anion gap metabolic acidosis: bicarb 19, possibly due to tacrolimus improved after bicitra, she doesnt like the taste so advised her she can substitute with fresh squeezed lemonade. Hypertension:120/70 today Blood pressure well-controlled Continue amlodipine 10mg. lipid panel normal in 10/11 HbA1c 5.6 on 11/05/2024, on Monjauro. Bacterial vaginosis: She was treated with Flagyl for bacterial vaginosis 2 times in the past 3 or 4 months. Now she has Janae glabrata in her culture which needs to be treated. We will call her OBGYN at [facility] in [place], we will adjust the dose of tacrolimus to help her get Diflucan if needed. Number of [facility]: [phone] Reinforced the importance of medication adherence, infection precautions and hand hygiene. Reviewed signs of rejection/infection Advised to avoid NSAIDs, monitor blood pressure and weight closely. We will repeat labs tomorrow in the morning and we will give her a call. Coding Level of Care Code Est Pt Level 4 (04167) Diagnoses S/P kidney transplant Z94.0 Primary hypertension I10 Hypertension type: primary hypertension
--- OUTSIDE RECORDS SUMMARY | 2025-04-17 18:56 | XMS_ITS | Encounter Summary ---
Author Organization [facility] Address [address] [place] [address] Care Team Providers Care Social Contact Worker Name Role Phone Marce Alexandre APRN Unavailable [phone] Rob Lagunas MD Unavailable Alejandrina Eugene DO Unavailable [phone] Unknown Primary Care Provider [phone] Encounter Details Date Type Department Care Team (Late st Contact Info) Description 09/21/2018 Scanned Document [facility] [address] [address] Provider, MD Jason [address] [place] [address] Social History Tobacco Use Types Packs/Day Years [...] on filedocumented in this encounter Care Teams Social Contact Worker Relationship Specialty Start Date End Date Unknown Unknow Provider Address PCP - General 08/20/21 Marce Alexandre APRN [address] [address] Nurse Practitioner Surgery, Transplant 09/26/18 Rob Lagunas MD [address] [place] [address] Referring Provider Nephrology 09/26/18 Eugene Tinoco DO [address] [place] [address] Primary Care Provider Family Medicine 09/26/18 documented as of this encounter
--- OUTSIDE RECORDS SUMMARY | 2025-04-17 18:56 | XMS_ITS | Clinical Summary ---
Author Organization [facility] [employer] [facility] Prior to 09/16/24 Address [address] [place] [address] Care Team Providers Care Marketing Analyst Name Role Phone Unavailable Primary Care Provider Unavailabl e Social History Tobacco Use Types Packs/Day Years Used Date Smoking Tobacco: Never Assessed Sex and Gender Information Value Date Recorded Sex Assigned at Not on file Gender Identity Not on file Sexual Orientation Not on file Plan of Treatment Not on file
--- OUTSIDE RECORDS SUMMARY | 2025-04-17 18:56 | XMS_ITS | Encounter Summary ---
Author Organization [facility] Address [address] [place] [address] Care Team Providers Care Air Valve Repairer Name Role Phone Marce Alexandre APRN Unavailable Rob Lagunas MD Unavailable [phone] Alejandrina Eugene DO Unavailable [phone] Unknown Primary Care Provider [phone] Encounter Details Date Type Department Care Team (Late st Contact Info) Description 09/21/2018 Scanned Document [facility] [address] [address] Provider, MD Jason [address] [place] [address] Social History Tobacco Use Types Packs/Day Years [...] on filedocumented in this encounter Care Teams Air Valve Repairer Relationship Specialty Start Date End Date Unknown Unknow Provider Address PCP - General 08/20/21 Marce Alexandre APRN [address] [address] Nurse Practitioner Surgery, Transplant 09/26/18 Rob Lagunas MD [address] [place] [address] Referring Provider Nephrology 09/26/18 Eugene Tinoco DO [address] [place] [address] Primary Care Provider Family Medicine 09/26/18 documented as of this encounter
--- OUTSIDE RECORDS SUMMARY | 2025-04-17 18:56 | XMS_ITS | Encounter Summary ---
Author Organization [facility], Address [address] [place] [address] Phone Care Team Providers Care Operational Risk Consultant Name Role Phone Nissa Mckeon DO Primary Care Pro vider Reason for Visit * Reason Comments Med Refill Encounter Details Date Type Department Care Team (Late st Contact Info) Description 07/17/2019 Refill [facility] [address] [place] [address] Wicho Johnson PA [address] [place] [address] Social History Tobacco Use [...] on filedocumented in this encounter Care Teams Operational Risk Consultant Relationship Specialty Start Date End Date Nissa Mckeon DO PCP - General 04/29/20 documented as of this encounter
--- OUTSIDE RECORDS SUMMARY | 2025-04-17 18:56 | XMS_ITS | Encounter Summary ---
Author Organization [facility] Address [address] [place] [address] Care Team Providers Care Advisory Internship Name Role Phone Marce Alexandre APRN Unavailable Rob Lagunas MD Unavailable [phone] Alejandrina Eugene DO Unavailable [phone] Unknown Primary Care Provider [phone] Encounter Details Date Type Department Care Team (Late st Contact Info) Description 09/28/2018 Scanned Document [facility] [address] [address] Provider, MD Jason [address] [place] [address] Social History Tobacco Use Types Packs/Day Years [...] on filedocumented in this encounter Care Teams Advisory Internship Relationship Specialty Start Date End Date Unknown Unknow Provider Address PCP - General 08/20/21 Marce Alexandre APRN [address] [address] Nurse Practitioner Surgery, Transplant 09/26/18 Rob Lagunas MD [address] [place] [address] Referring Provider Nephrology 09/26/18 Eugene Tinoco DO [address] [place] [address] Primary Care Provider Family Medicine 09/26/18 documented as of this encounter
--- OUTSIDE RECORDS SUMMARY | 2025-04-17 18:56 | XMS_ITS | Encounter Summary ---
Author Organization [facility], Address [address] [place] [address] Phone Care Team Providers Care Superintendent Institution Name Role Phone TejalveronicaNissa Fu DO Primary Care Pro vider Encounter Details Date Type Department Care Team ([facility] Contact Info) Description 05/27/2020 Telephone [facility] [address] [place] [address] Danna Jain [address] [place] [address] Social History Tobacco Use Types [...] AM EST) Coronavirus COVID-19 PCR NEGATIVE (NEG) [facility] Comment: 2019-novel Coronavirus (2019-nCoV) not detected by real-time RT-PCR. Note: If clinical suspicion for COVID-19 is high, continue to maintain precautions and consider repeat testing. Result reported to the [facility]. To prevent errors in diagnosis, test results [...] performed by real time PCR utilizing PAMELA CATASYS0 SARS-CoV-2 test. SARS-CoV-2 Source [facility] Comment: Testing performed or reported by [facility], a Service of [facility], [address] [place] [address] Danyel Ponce MD, Finishing Department Supervisor 05/27/2020 11:5 6 AM EST 05/27/2020 2:49 PM EST Christiane Garay MD LAB HISTORICAL-CONVERSIONS- UNSOLICITED RESULTS Final Result [facility] documented in this encounter Visit Diagnoses Not on filedocumented in this encounter Care Teams Superintendent Institution Relationship Specialty Start Date End Date Nissa Mckeon DO PCP - General 04/29/20 documented as of this encounter
--- OUTSIDE RECORDS SUMMARY | 2025-04-17 18:56 | XMS_ITS | Clinical Summary ---
Author Organization [facility] Address [address] [place] [address] Care Team Providers Care Sales And Production Manager Name Role Phone Marce Alexandre STAN Unavailable [phone] Rob Lagunas MD Unavailable [phone] Eugene Tinoco DO Unavailable [phone] Unknown Primary Care Provider [phone] Allergies Active Allergy Reactions Criticality Noted Date [...] Insurance [place] [id number] [place]ICA[place] [facility] [facility] [address] [place] [id number] MEDICARE PART A & B MEDICAID [place] [facility] Care Teams Sales And Production Manager Relationship Specialty Start Date End Date Unknown Unknow Provider Address PCP - General 08/20/21 Marce Alexandre APRN [address] [place] [address] Nurse Practitioner Surgery, Transplant 09/26/18 Rob Lagunas MD [address] [place] [address] Referring Provider Nephrology 09/26/18 Eugene Tinoco DO [address] [address] Primary Care Provider Family Medicine 09/26/18
--- OUTSIDE RECORDS SUMMARY | 2025-04-17 18:56 | XMS_ITS | Clinical Summary ---
Author Organization [facility], Address [address] [place] [address] Phone Care Team Providers Care Community Product Specialist Name Role Phone Nissa Mckeon DO Primary [...] (04/18/2020): Goes [facility] 2x[facility], as No Brokerage Manager in area will take her as [...] 05/31/2017 Insurance Medicare Medicaid [place] Care Teams Community Product Specialist Relationship Specialty Start Date End Date Nissa Mckeon DO PCP - General 04/29/20
--- OUTSIDE RECORDS SUMMARY | 2025-04-17 18:56 | XMS_ITS | Encounter Summary ---
Author Organization [facility] Address [address] [place] [address] Care Team Providers Care Operator Ground Based Air Defence Name Role Phone Marce Alexandre APRN Unavailable Rob Lagunas MD Unavailable [phone] Alejandrina Eugene DO Unavailable [phone] Unknown Primary Care Provider [phone] Encounter Details Date Type Department Care Team (Late st Contact Info) Description 08/19/2018 Scanned Document [facility] [address] [address] Provider, MD Jason [address] [place] [address] Social History Tobacco Use Types Packs/Day Years [...] on filedocumented in this encounter Care Teams Operator Ground Based Air Defence Relationship Specialty Start Date End Date Unknown Unknow Provider Address PCP - General 08/20/21 Marce Alexandre APRN [address] [address] Nurse Practitioner Surgery, Transplant 09/26/18 Rob Lagunas MD [address] [place] [address] Referring Provider Nephrology 09/26/18 Eugene Tinoco DO [address] [place] [address] Primary Care Provider Family Medicine 09/26/18 documented as of this encounter
--- OUTSIDE RECORDS SUMMARY | 2025-04-17 18:56 | XMS_ITS | Encounter Summary ---
Author Organization [facility], Address [address] [place] [address] Phone Care Team Providers Care Bowling Ball Marker Name Role Phone Nissa Mckeon DO Primary Care Pro vider Reason for Visit * Reason Comments Med Refill Encounter Details Date Type Department Care Team (Late st Contact Info) Description 07/16/2020 Refill [facility] [address] [place] [address] Wicho Johnson PA [address] [place] [address] [place] [address] Social History Tobacco Use Types [...] on filedocumented in this encounter Care Teams Bowling Ball Marker Relationship Specialty Start Date End Date Nissa Mckeon DO PCP - General 04/29/20 documented as of this encounter
--- OUTSIDE RECORDS SUMMARY | 2025-04-17 18:56 | XMS_ITS | Patient Health Record ---
Author [facility] Address [address] [facility] [address] Care Team Providers Care Bowling Ball Finisher Name Role Phone Alexx Baum Primary Care Provider Unavailab Nan Roper Unavailable [phone] Allergies Allergen (clinical drug ingredient) Drug/Non Drug [...] Problem Type II diabetes mellitus without complication (800956810) Diabetes mellitus without complication (E11.9) Active confirmed Vital Signs Blood pressure diastolic 65 mm Hg 07/05/2024 Height 5ft6in in 07/05/2024 Blood pressure systolic 113 mm Hg 07/05/2024 Weight 198 lbs 07/05/2024 BMI 31.95 kg/m2 07/05/2024 Encounters Encounter Location Date Provider Diagnosis [address] [address] 06/07/2024 Nan Perica Ingrown nail L60.0 ; Diabetes mellitus without complication E11.9 ; Pain in right toe(s) M79.674 and Pain in left toe(s) M79.[address] [address] 07/05/2024 Nan Perica Ingrown nail L60.0 and Diabetes mellitus without complication E11.[address] [address] 03/28/2025 Nan Perica Assessments Encounter Date Diagnosis [...] Inc [address] [place] [address] [id number] Areli Roblesver Self - patient is the insured 7 Medical (General) History Medical History History ICD Code Anxiety asthma Depression Kidney disease Reflux ( GERD) Diabetes mellitus Surgical History Surgery Date(Month/Year) kidney transplant 2020 shoulder replacement Left 2021
--- OUTSIDE RECORDS SUMMARY | 2025-04-17 18:56 | XMS_ITS | Encounter Summary ---
Author Organization [facility] Address [address] [place] [address] Care Team Providers Care Pipe Tester Name Role Phone Marce Alexandre APRN Unavailable [phone] Rob Lagunas MD Unavailable [phone] Eugene Tinoco DO Unavailable [phone] Unknown Primary Care Provider [phone] Encounter Details Date Type Department Care Team (Late st Contact Info) Description 09/27/2018 Scanned Document [facility] [address] [address] Rohini Hairston [place] [address] [address] Social History Tobacco Use Types Packs/Day Years [...] on filedocumented in this encounter Care Teams Pipe Tester Relationship Specialty Start Date End Date Unknown Unknow Provider Address PCP - General 08/20/21 Marce Alexandre APRN [address] [address] Nurse Practitioner Surgery, Transplant 09/26/18 Rob Lagunas MD [facility] [place]note 2[facility]0 [place] [address] Referring Provider Nephrology 09/26/18 Eugene Tinoco DO [address] [place] [address] Primary Care Provider Family Medicine 09/26/18 documented as of this encounter
--- OUTSIDE RECORDS SUMMARY | 2025-04-17 18:56 | XMS_ITS | Encounter Summary ---
Author Organization [facility], Address [address] [place] [address] Phone Care Team Providers Care Conservator Artifacts Name Role Phone Nissa Mckeon DO Primary Care Pro vider Encounter Details Date Type Department Care Team (Late st Contact Info) Description 07/25/2021 Telephone [facility] [address] [place] [address] Danna Jain [address] [place] [address] Social History Tobacco Use Types [...] on filedocumented in this encounter Care Teams Conservator Artifacts Relationship Specialty Start Date End Date Nissa Mckeon DO PCP - General 04/29/20 documented as of this encounter
--- OUTSIDE RECORDS SUMMARY | 2025-04-17 18:56 | XMS_ITS | Clinical Summary ---
Author Organization [facility] Address [address] [place] [address] Care Team Providers Care Drafter Name Role Phone Unavailable Primary Care Provider Unavailabl e Surgical History Surgery Date Site/Laterality Comments OTHER SURGICAL HISTORY PROCEDURE: AV FISTULA OR GRAFT ARTERIAL PARATHYROIDECTOMY PROCEDURE: HISTORICAL PARATHYROIDECTOMY OTHER SURGICAL HISTORY PROCEDURE: [place] [facility] THYROID LOBECTOMY UNI W/WO ISTHMUSECTOMY Medical History Medical History Date Comments HTN (hypertension) DX:HTN (hyper tension) ESRD (end stage renal diseas e) ([facility] V24, [facility] V28) DX:ESRD (end stage renal dis ease) ([facility]); COMMENT: hd at [facility] er/icu; babu Anxiety DX:Anxiety Depression DX:Depression Bipolar disorder ([facility] V2 4, [facility] V28) DX:Bipolar disorder ([facility]); C OMMENT: [facility] therapist Secondary hyperparathyroidis m ([facility] V24) DX:Secondary hyperparathyroi dism ([facility]) Asthma DX:Asthma Tobacco use DX:Tobacco use Hidradenitis suppurativa DX:Hidr adenitis suppurativa History of substance abuse ( [facility] V24, [facility] V28) DX:History of substance abus e ([facility]) GERD (gastroesophageal reflux disease) DX:GERD (gastroesophageal reflux [...]
--- OUTSIDE RECORDS SUMMARY | 2025-04-17 18:56 | XMS_ITS | Encounter Summary ---
Author Organization [facility], Address [address] [place] [address] Phone Care Team Providers Care Supervisor Plate Forming Name Role Phone Nissa Mckeon DO Primary Care Pro vider Encounter Details Date Type Department Care Team ([facility] Contact Info) Description 05/23/2021 Documentation Only [facility], [address] [place] [address] Rob Lagunas MD [address] [place] [address] Social History Tobacco Use Types [...] filedocumented in this encounter Care Teams Supervisor Plate Forming Relationship Specialty Start Date End Date Nisas Mckeon DO PCP - General 04/29/20 documented as of this encounter
--- OUTSIDE RECORDS SUMMARY | 2025-04-17 18:56 | XMS_ITS | Encounter Summary ---
Author Organization [facility], Address [address] [place] [address] Phone Care Team Providers Care Desktop Operator Name Role Phone Nissa Mckeon DO Primary Care Pro vider Encounter Details Date Type Department Care Team ([facility] Contact Info) Description 04/29/2021 Documentation Only [facility], [address] [place] [address] Rob Lagunas MD [address] [place] [address] Social History Tobacco Use Types [...] on filedocumented in this encounter Care Teams Desktop Operator Relationship Specialty Start Date End Date Nissa Mckeon DO PCP - General 04/29/20 documented as of this encounter
--- OUTSIDE RECORDS SUMMARY | 2025-04-17 18:56 | XMS_ITS | Encounter Summary ---
Author Organization [facility] Address [address] [place] [address] Care Team Providers Care Postal Service Clerk Name Role Phone Marce Alexandre APRN Unavailable Rob Lagunas MD Unavailable [phone] Eugene Tinoco DO Unavailable [phone] Unknown Primary Care Provider [phone] Encounter Details Date Type Department Care Team (Late st Contact Info) Description 09/29/2018 Scanned Document [facility] [address] [address] Keke Stockton [address] [address] Social History Tobacco Use Types Packs/Day Years [...] on filedocumented in this encounter Care Teams Postal Service Clerk Relationship Specialty Start Date End Date Unknown Unknow Provider Address PCP - General 08/20/21 Marce Alexandre APRN [address] [address] Nurse Practitioner Surgery, Transplant 09/26/18 Rob Lagunas MD [address] [place] [address] Referring Provider Nephrology 09/26/18 Eugene Tinoco DO [address] [place] [address] Primary Care Provider Family Medicine 09/26/18 documented as of this encounter
== END 2025-04-17 16:18 | disposition home or self-care (01) ==
LOC: HO.HKA 15:46
PROVIDERS: PCP Physician Assistant; Visit Provider Internal Medicine Critical Care Medicine
DX: Z94.0 Kidney transplant status (principal); I10 Essential (primary) hypertension
CPT/HCPCS: 99214

== ENCOUNTER → 2025-04-17 15:45 | Outpatient (BNVA) | payer MEDICARE, MEDICAID, SELFPAY | PROVIDERS: PCP Physician Assistant; Visit Provider Internal Medicine Critical Care Medicine | DX: I12.0 Hypertensive chronic kidney disease with stage 5 chronic kidney disease or end stage renal disease (principal); N18.6 End stage renal disease; Z94.0 Kidney transplant status; Z99.2 Dependence on renal dialysis | CPT/HCPCS: 99212 ==